=== PATIENT | male | born 1950 | race Hispanic/Latino ===

== ENCOUNTER 2017-04-12 16:14 | Inpatient (IN) | payer MEDICARE, OTHER ==
[2017-04-12 16:28] VITALS: BMI 27.2
[2017-04-12] MEDS ORDERED: Aspirin 325 mg EC Tablets PO STA (17:43)
[2017-04-12 18:03] LABS: BASO # 0.08 K/mm3 (0.0-2.0); BASO % 0.2 % (0.0-3.0); EOS # 0.1 (0.0-0.7); EOS % 0.3 % (1.5-5.0); GRAN # 39.01 (1.4-6.5); GRAN % 89.3 % (50.0-68.0); HEMATOCRIT 32.8 % (42.0-52.0); LYMPH % 4.5 % (22.0-35.0); MEAN CELL VOLUME 92.7 fl (80.0-105.0); MEAN CORPUSCULAR HEMOGLOBIN 31.1 pg (25.0-35.0); MEAN CORPUSCULAR HGB CONC 33.5 g/dl (31.0-37.0); MEAN PLATELET VOLUME 9.4 fl (7.0-11.0); MONO # 2.5 (0.1-0.6); MONO % 5.7 % (1.0-6.0); PLATELET COUNT 139 10^3/uL (120.0-450.0); RED CELL DISTRIBUTION WIDTH 19.8 % (11.5-14.5)
[2017-04-12 18:10] LABS: INR 1.12 (0.93-1.08); WHITE BLOOD COUNT 43.7 10^3/ul (4.5-11.0)
[2017-04-12 18:12] LABS: ALB/GLOB RATIO 1.1 (1.1-1.8); ALKALINE PHOSPHATASE 271 U/L (38-126); ALT/SGPT 42 U/L (7-56); AST/SGOT 30 U/L (17-59); BILIRUBIN,TOTAL 0.4 mg/dL (0.2-1.3); BLOOD UREA NITROGEN 8 mg/dL (7-21); CALCIUM 8.1 mg/dL (8.4-10.5); CARBON DIOXIDE 28 mmol/L (21-33); CHLORIDE 101 mmol/L (98-107); GFR AFRICAN-AMERICAN > 60; GLUCOSE,RANDOM 91 mg/dL (70-110); POTASSIUM 3.3 mmol/L (3.6-5.0); SODIUM 139 mmol/L (132-148); TOTAL PROTEIN 5.9 g/dL (5.8-8.3)
[2017-04-12 18:33] LABS: TROPONIN I < 0.01 ng/mL
[2017-04-12 18:36] LABS: BAND 9 % (0-2); EOSINOPHIL 3 % (0.0-3.0); NEUTROPHIL 82 % (50.0-70.0); PLATELET ESTIMATE NORMAL (NORMAL)
[2017-04-12] MEDS ORDERED: Iodixanol 320 MG/ML 100 ML BOTTLE IV ONE (18:37)
--- NOTE | 2017-04-12 18:57 | US ---
HISTORY: Leg pain and swelling. Evaluate for DVT PHYSICIAN(S): Terrence Dorantes MD. TECHNIQUE: Duplex sonography and color-flow Doppler with graded compression were used to evaluate the deep venous systems of both lower extremities. FINDINGS: The visualized deep venous systems of both lower extremities are sonographically normal and compressible. Normal wave forms and augmentation are seen. There is no sonographic evidence for deep venous thrombosis in the visualized segments of both lower extremities. IMPRESSION: No sonographic evidence for deep venous thrombosis in the visualized segments of both lower extremities.
--- NOTE | 2017-04-12 19:01 | RAD ---
HISTORY: SOB COMPARISON: Chest x-ray performed 06/22/16 TECHNIQUE: Chest, one view. FINDINGS: Right-sided MediPort extends the SVC. LUNGS: Layering small to moderate right pleural effusion. Small left pleural effusion. Bilateral lower lobe atelectasis/ infiltrates. Mild pulmonary venous congestion. No definite pneumothorax. CARDIOVASCULAR: Partially obscured. OSSEOUS STRUCTURES: No acute osseous abnormality identified. VISUALIZED UPPER ABDOMEN: Unremarkable. OTHER FINDINGS: None. IMPRESSION: Layering small to moderate right pleural effusion. Small left pleural effusion. Bilateral lower lobe atelectasis/ infiltrates. Mild pulmonary venous congestion. Right-sided MediPort extends to the SVC.
[2017-04-12] MEDS ORDERED: Piperacillin/Tazobact 3.375 gm 100 ML IVPB STA (19:37)
[2017-04-12] MEDS ORDERED: Vancomycin 1gm in NS 250ml 1 GM/250 ML BAG IVPB STA (19:38)
[2017-04-12 20:16] LABS: VENOUS BLOOD GAS BASE EXCESS 5.8 mmol/L (0.0-2.0); VENOUS BLOOD PH 7.41 (7.32-7.43)
[2017-04-12 20:34] LABS: PH,URINE 6.5 (4.7-8.0); URINE BILIRUBIN NEGATIVE (NEGATIVE); URINE BLOOD LARGE (NEGATIVE); URINE GLUCOSE (UA) NEGATIVE (NEGATIVE); URINE KETONE NEGATIVE (NEGATIVE); URINE LEUKOCYTE ESTERASE TRACE Leu/uL (NEGATIVE); URINE PROTEIN NEGATIVE mg/dL (<30 mg/dL); URINE UROBILINOGEN 0.2 E.U./dL (<1 E.U./dL)
[2017-04-12 20:36] LABS: URINE APPEARANCE SL CLOUDY (CLEAR); URINE COLOR YELLOW (YELLOW)
--- NOTE | 2017-04-12 20:37 | CT ---
EXAM: CT Angiography Chest With Intravenous Contrast EXAM DATE/TIME: 04/12/2017 5:43 PM CLINICAL HISTORY: 66 years old, male; Signs and symptoms; Shortness of breath; Additional info: SOB, h/o clot, h/o pancreatic cancer TECHNIQUE: Axial computed tomographic angiography images of the chest with intravenous contrast using pulmonary embolism protocol. All CT scans at this facility use one or more dose reduction techniques, viz.: automated exposure control; ma/kV adjustment per patient size (including targeted exams where dose is matched to indication; i.e. head); or iterative reconstruction technique. MIP reconstructed images were created and reviewed. Coronal and sagittal reformatted images were created and reviewed. CONTRAST: 100 mL of VISIPAQUE 320 administered intravenously. COMPARISON: CT - CHEST,ABD,PEL W/IV CONT ONLY 06/21/2016 9:55:28 AM FINDINGS: Tubes, lines and devices: There is a Port-A-Cath in the right chest wall. Catheter tip is in the low superior vena cava. Heart, aorta and Pulmonary arteries: There is occlusive thrombus in the superior vena cava inferior to the catheter tip. There is filling of the azygos system with collateral opacification of the inferior vena cava. Heart size is normal. There is trace fluid in pericardial recesses. There are coronary artery calcifications and/or stents. There is no aneurysm or dissection. There is perfusion of the 3 arch vessels.There are vascular calcifications. Main pulmonary artery is normal in caliber. There no central pulmonary emboli. Allowing for streak and motion, there are no peripheral emboli. Lungs and pleural spaces: Trachea and main bronchi are patent. There is a large right pleural effusion. There is a moderately large left pleural effusion. There is right middle and lower lobe atelectasis. There is partial right upper lobe atelectasis. There is less extensive left lower lobe atelectasis. There is minimal compressive left upper lobe atelectasis. Motion limits evaluation of aerated lung. Thyroid: Thyroid is only partially imaged. Bones/joints: There are degenerative changes in the osseus structures. Soft tissues: There is body wall edema. Lymph nodes: There are multiple shotty axillary nodes left greater than right. Upper abdomen: There are no acute abnormalities in the visualized portion of the abdomen. There is a left renal cyst. 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
[2017-04-12 20:39] LABS: URINE RBC TNTC /hpf (0-2)
--- NOTE | 2017-04-12 20:43 | ED PDOC ---
Arrival/HPI - General Chief Complaint: Lower Extremity Problem/Injury Time Seen by Provider: 04/12/17 16:55 Historian: Patient - History of Present Illness Narrative History of Present Illness (Text): 04/12/17 20:43 A 66 year old male, whose past medical history includes pancreatic cancer on chemotherapy, presents to the emergency department complaining of persistent upper and lower extremity edema. Patient reports he was recently seen at [facility] [place] and diagnosed with a clot somewhere on the right side of his upper body, however , he is not entirely sure. Patient states his oncologist increased his Lasix dosage 1 week ago. He was also placed on Lovenox due to clot and history of atrial fibrillation. Patient also complains of dyspnea on exertion for 1 week, but denies any shortness of breath at this time. Patient denies any upper/lower extremity pain, fever, chills, nausea, vomiting, abdominal pain, chest pain, cough, headache, dizziness, neck pain or any other complaints. PMD: Dr. Zelaya Oncologist: Dr. Leavitt Accountant Auditor: Dr. Terrence Yoder Past Medical History - Provider Review Nursing Documentation Reviewed: Yes - Infectious Disease Hx of Infectious Diseases: None - Tetanus Immunization Tetanus Immunization: Unknown - Cardiac Hx Cardiac Disorders: Yes (Cardiac stent, A fib, EF 25%) Hx Atrial Fibrillation: Yes Hx Congestive Heart Failure: Yes Hx Hypertension: Yes - Pulmonary Hx Respiratory Disorders: Yes (LUNG NODULE.SMOKED CIGARETTES-QUIT 1973. <PK. 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 food bezoar, duodenal gstric outlet obstruction, barretts esophagus, gi bleed, constipation, nausea - Genitourinary/Gynecological Hx Genitourinary Disorders: No - Psychiatric Hx Emotional Abuse: No Hx Physical Abuse: No Hx Substance Use: Yes (MARIJUANA. LAST SMOKED LAST YR 2014) - Past Surgical History Past Surgical History: No Previous - Surgical History Hx Coronary Stent: Yes (03/2013) - Anesthesia Hx Anesthesia Reactions: No Hx Malignant Hyperthermia: No - Suicidal Assessment Feels Threatened In Home Enviroment: No Family/Social History - Physician Review Nursing Documentation Reviewed: Yes Family/Social History: No Known Family HX Smoking Status: Former Smoker Hx Alcohol Use: Yes (OCCASIONAL DRINKS) Hx Substance Use: Yes (MARIJUANA. LAST SMOKED LAST 2014) Hx Substance Use Treatment: No Allergies/Home Meds Allergies/Adverse Reactions: Allergies iv tape Allergy (Mild, Uncoded 04/12/17 16:29) RASH Home Medications: Home Meds Medication Instructions Recorded Confirmed Digoxin 0.25 mg PO DAILY 04/12/17 04/12/17 Enoxaparin [Lovenox] 60 mg SQ DAILY 04/12/17 04/12/17 Furosemide [Lasix] 20 mg PO DAILY 04/12/17 04/12/17 Review of Systems - Physician Review All systems were reviewed & negative as marked: Yes - Review of Systems Constitutional: absent: Fevers, Night Sweats Respiratory: SOB (currently asymptomatic). absent: Cough Cardiovascular: Edema (Upper and lower extremity edema). absent: Chest Pain Gastrointestinal: absent: Abdominal Pain, Nausea, Vomiting Musculoskeletal: absent: Neck Pain Neurological: absent: Headache, Dizziness Physical Exam Vital Signs Reviewed: Yes Vital Signs Temp Pulse Resp BP Pulse Ox 04/13/17 00:56 17 98 04/13/17 00:53 98.0 F 88 17 120/99 H 98 04/12/17 20:12 97.7 F 04/12/17 17:58 110/63 04/12/17 16:20 97.4 F L 105 H 18 124/84 97 Temperature: Afebrile Blood Pressure: Normal Pulse: Tachycardic Respiratory Rate: Normal Appearance: Positive for: Well-Appearing, Non-Toxic, Comfortable (laying in bed , speaking full sentences) Pain Distress: None Mental Status: Positive for: Alert and Oriented X 3 Finger Stick Blood Glucose: 122 - Systems Exam Head: Present: Atraumatic, Normocephalic Pupils: Present: PERRL Extroacular Muscles: Present: EOMI Conjunctiva: Present: Normal Mouth: Present: Moist Mucous Membranes Neck: Present: Normal Range of Motion Respiratory/Chest: Present: Clear to Auscultation, Decreased Breath Sounds (in lower lung oliva). No: Respiratory Distress, Accessory Muscle Use Cardiovascular: Present: Normal S1, S2, Irregular Rhythm. No: Murmurs Abdomen: Present: Normal Bowel Sounds. No: Tenderness, Distention, Peritoneal Signs Back: Present: Normal Inspection Upper Extremity: Present: Edema (+2 pitting edema bilaterally), Normal ROM, NORMAL PULSES, Neurovascularly Intact. No: Cyanosis, Tenderness, Temperature Abnormalties Lower Extremity: Present: Edema (2+ pitting edema bilaterally), NORMAL PULSES, Normal ROM, Neurovascularly Intact. No: CALF TENDERNESS, Tenderness Neurological: Present: GCS=15, CN II-XII Intact, Speech Normal Skin: Present: Warm, Dry, Pale. No: Rashes Psychiatric: Present: Alert, Oriented x 3, Normal Insight, Normal Concentration Medical Decision Making ED Course and Treatment: 04/12/17 20:43 Impression: A 66 year old male with upper and lower extremity edema. Patient notes shortness of breath but denies any other complaints. Plan: -- Chest CT -- Chest xray -- Duplez lower extremity ultrasound -- EKG -- Labs -- Blood and Urine culture -- Urinalysis -- Aspirin, Lasix, Potassium chloride, Vancomycin and Zosyn -- Reassess and disposition Progress Notes: EKG : A fib 107 bpm, consistent with prior EKG, only change is V2, as read by ER MD. Labs reviewed : pt's WBC is 43.7 with L shift and noted bands. K is 3.3. BNP 5600 and trop is (-). On further questioning the patient admits to receiving neupagen injections to increase his WBC count. However considering the pt's hx of cancer, symptoms of SOB and CXR findings of possible pneumonia, will treat as such. Patient given KCL PO, zosyn IV and vancomycin IV. Blood cultures and lactic acid ordered. Patient refuses rectal temp. TA chest is still pending. US of UE and LE shows no acute DVT. 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 Dr. Low covering for Dr. Zelaya called, notified of admission. - Lab Interpretations Microbiology Results: Microbiology Results 04/12/17 17:05 Blood Blood Culture - Preliminary NO GROWTH AFTER 24 HOURS 04/12/17 16:50 Blood Blood Culture - Preliminary NO GROWTH AFTER 24 HOURS Lab Results: 04/12/17 16:50 04/12/17 16:50 Lab Results 04/12/17 20:24: Urine Color Yellow, Urine Appearance Sl cloudy, Urine pH 6.5, Ur Specific Flushing <= 1.005, Urine Protein Negative, Urine Glucose (UA) Negative, Urine Ketones Negative, Urine Blood Large H, Urine Nitrate Negative, Urine Bilirubin Negative, Urine Urobilinogen 0.2, Ur Leukocyte Esterase Trace H , Urine RBC Tntc, Urine WBC 1 - 3 04/12/17 20:05: pO2 50, VBG pH 7.41, VBG pCO2 50.0, VBG HCO3 31.7 H, VBG Total CO2 33.2 H, VBG O2 Sat (Calc) 88.1 H, VBG Base Excess 5.8 H, VBG Potassium 3.0 L , Glucose 102, Lactate 1.4, FiO2 21.0, Sodium 139.0, Chloride 103.0, Venous Blood Potassium 3.0 L 04/12/17 16:50: Sodium 139, Potassium 3.3 L, Chloride 101, Carbon Dioxide 28, Anion Gap 13, BUN 8, Creatinine 0.8, Est GFR ( Amer) > 60, Est GFR (Non- Af Amer) > 60, Random Glucose 91, Calcium 8.1 L, Total Bilirubin 0.4, AST 30, ALT 42, Alkaline Phosphatase 271 H, Lactate Dehydrogenase 926 H, Total Creatine Kinase 23 L, Troponin I < 0.01, NT-Pro-B Natriuret Pep 5600 H, Total Protein 5.9 , Albumin 3.1, Globulin 2.8, Albumin/Globulin Ratio 1.1 04/12/17 16:50: PT 12.1 H, INR 1.12 H, APTT 61.0 H 04/12/17 16:50: WBC 43.7 H* D, RBC 3.54, Hgb 11.0 L, Hct 32.8 L, MCV 92.7, MCH 31.1, MCHC 33.5, RDW 19.8 H, Plt Count 139, MPV 9.4, Gran % 89.3 H, Lymph % ( Auto) 4.5 L, Overton % (Auto) 5.7, Eos % (Auto) 0.3 L, Baso % (Auto) 0.2, Gran # 39.01 H, Lymph # 2.0, Overton # 2.5 H, Eos # 0.1, Baso # 0.08, Neutrophils % ( Manual) 82 H, Band Neutrophils % 9 H, Lymphocytes % (Manual) 3 L, Monocytes % ( Manual) 3, Eosinophils % (Manual) 3, Platelet Evaluation Normal 04/12/17 16:41: POC Glucose (mg/dL) 122 H I have reviewed the lab results: Yes - RAD Interpretation Narrative RAD Interpretations (Text): 04/13/17 02:14 CXR: FINDINGS: Right-sided MediPort extends the SVC. LUNGS: Layering small to moderate right pleural effusion. Small left pleural effusion. Bilateral lower lobe atelectasis/ infiltrates. Mild pulmonary venous congestion. No definite pneumothorax. CARDIOVASCULAR: Partially obscured. OSSEOUS STRUCTURES: No acute osseous abnormality identified. VISUALIZED UPPER ABDOMEN: Unremarkable. OTHER FINDINGS: None. IMPRESSION: Layering small to moderate right pleural effusion. Small left pleural effusion. Bilateral lower lobe atelectasis/ infiltrates. Mild pulmonary venous congestion. Right-sided MediPort extends to the SVC. US doppler b/l UE: no DVT in R and L UE, as per US tech report. US doppler b/l LE: FINDINGS: The visualized deep venous systems of both lower extremities are sonographically normal and compressible. Normal wave forms and augmentation are seen. There is no sonographic evidence for deep venous thrombosis in the visualized segments of both lower extremities. IMPRESSION: No sonographic evidence for deep venous thrombosis in the visualized segments of both lower extremities. CTA CHEST PE Study : FINDINGS: Tubes, lines and devices: There is a Port-A-Cath in the right chest wall. Catheter tip is in the low superior vena cava. Heart, aorta and Pulmonary arteries: There is occlusive thrombus in the superior vena cava inferior to the catheter tip. There is filling of the azygos system with collateral opacification of the inferior vena cava. Heart size is normal. There is trace fluid in pericardial recesses. There are coronary artery calcifications and/or stents. There is no aneurysm or dissection. There is perfusion of the 3 arch vessels.There are vascular calcifications. Main pulmonary artery is normal in caliber. There no central pulmonary emboli. Allowing for streak and motion, there are no peripheral emboli. Lungs and pleural spaces: Trachea and main bronchi are patent. There is a large right pleural effusion. There is a moderately large left pleural effusion. There is right middle and lower lobe atelectasis. There is partial right upper lobe atelectasis. There is less extensive left lower lobe atelectasis. There is minimal compressive left upper lobe atelectasis. Motion limits evaluation of aerated lung. Thyroid: Thyroid is only partially imaged. Bones/joints: There are degenerative changes in the osseus structures. Soft tissues: There is body wall edema. Lymph nodes: There are multiple shotty axillary nodes left greater than right. Upper abdomen: There are no acute abnormalities in the visualized portion of the abdomen. There is a left renal cyst. 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 Dictated and Authenticated by: Pao Waldron MD 04/12/2017 8:37 PM Eastern Time ([place] & [place]) Radiology Orders: 04/12/17 17:43 ANGIO CHEST PE PROTOCOL [CT] Stat DUPLEX LOWER EXTRM VEIN BILAT [US] Stat 04/12/17 17:44 CHEST PORTABLE [RAD] Stat 04/12/17 17:48 DUPLEX UPPER EXTRM VEIN BILAT [US] Stat - Medication Orders Current Medication Orders: Albuterol/Ipratropium (Duoneb 3 Mg/0.5 Mg (3 Ml) Ud) 3 ml IH Q2H PRN PRN Reason: Shortness of Breath Aspirin (Aspirin Chewable) 81 mg PO DAILY [facility] Last Admin: 04/13/17 09:29 Dose: 81 mg Calcium Carbonate (Oscal) 500 mg PO DAILY [facility] Last Admin: 04/13/17 09:29 Dose: 500 mg Digoxin (Lanoxin) 0.25 mg PO 1400 [facility] Last Admin: 04/13/17 13:12 Dose: 0.25 mg Doxycycline Hyclate (Doryx) 100 mg PO Q12 CHRISTOPHER PRN Reason: Protocol Last Admin: 04/13/17 21:36 Dose: 100 mg Enoxaparin Sodium (Lovenox) 80 mg SC Q12H CHRISTOPHER PRN Reason: Protocol Last Admin: 04/14/17 00:36 Dose: Not Given Non-Admin Reason: Patient Refused Furosemide (Lasix) 40 mg IVP Q12 CHRISTOPHER Last Admin: 04/13/17 21:36 Dose: 40 mg Meropenem 1g/NS 100mL IVPB (Meropenem 1g/Ns 100ml Ivpb) 1 gm in 100 mls @ 100 mls/hr IVPB Q8 CHRISTOPHER PRN Reason: Protocol Stop: 04/20/17 14:01 Last Admin: 04/14/17 05:38 Dose: 100 mls/hr Insulin Human Lispro (Humalog Med) 0 units SC ACHS CHRISTOPHER PRN Reason: Protocol Last Admin: 04/14/17 07:51 Dose: Not Given Non-Admin Reason: Blood Sugar Parameter Pantoprazole Sodium (Protonix Ec Tab) 40 mg PO 0600,1600 [facility] Last Admin: 04/14/17 05:38 Dose: 40 mg Tamsulosin HCl (Flomax) 0.4 mg PO DAILY [facility] Last Admin: 04/13/17 09:29 Dose: 0.4 mg Discontinued Medications Aspirin (Ecotrin) 325 mg PO STAT STA Stop: 04/12/17 17:44 Last Admin: 04/12/17 17:58 Dose: Not Given Non-Admin Reason: Patient Refused Enoxaparin Sodium (Lovenox) 30 mg SC Q12H CHRISTOPHER PRN Reason: Protocol Last Admin: 04/13/17 05:41 Dose: 30 mg Furosemide (Lasix) 40 mg IVP STAT STA Stop: 04/12/17 17:55 Last Admin: 04/12/17 17:58 Dose: 40 mg Furosemide (Lasix) 40 mg PO DAILY [facility] Last Admin: 04/13/17 09:28 Dose: 40 mg Piperacillin Sod/Tazobactam Sod (Zosyn 3.375 In Ns 100ml) 100 mls @ 200 mls/hr IVPB STAT STA PRN Reason: Protocol Stop: 04/12/17 20:06 Last Admin: 04/12/17 20:11 Dose: 200 mls/hr Vancomycin HCl (Vancomycin 1gm) 1 gm in 250 mls @ 167 mls/hr IVPB STAT STA PRN Reason: Protocol Stop: 04/12/17 21:07 Last Admin: 04/12/17 20:48 Dose: 167 mls/hr Iodixanol (Visipaque 320 Mg/Ml 100 Ml) Confirm Administered Dose 100 ml IV .STK- MED ONE Stop: 04/12/17 18:38 Potassium Chloride (Potassium Chloride Oral Soln) 40 meq PO STAT STA Stop: 04/12/17 21:22 Last Admin: 04/12/17 22:15 Dose: 40 meq Potassium Chloride (K-Dur 20 Meq Er Tab) 20 meq PO ONCE ONE Stop: 04/13/17 07:21 Last Admin: 04/13/17 07:00 Dose: Not Given Non-Admin Reason: Patient Refused - PA / WRAPPER DIPPER / Resident Statement MD/DO has reviewed & agrees with the documentation as recorded. - Scribe Statement The provider has reviewed the documentation as recorded by the Liudmilaibmaryann Marcum Provider Scribe Attestation: All medical record entries made by the Liudmilaibmaryann were at my direction and personally dictated by me. I have reviewed the chart and agree that the record accurately reflects my personal performance of the history, physical exam, medical decision making, and the department course for this patient. I have also personally directed, reviewed, and agree with the discharge instructions and disposition. Disposition/Present on Arrival - Present on Arrival Any Indicators Present on Arrival: No History of DVT/PE: No History of Uncontrolled Diabetes: No Urinary Catheter: No (biliary catheter) History of Decub. Ulcer: No History Surgical Site Infection Following: None - Disposition Have Diagnosis and Disposition been Completed?: Yes Diagnosis: Pancreatic cancer, Leukocytosis, Pneumonia, Pleural effusion Disposition: HOSPITALIZED Disposition Time: 22:00 Patient Plan: Admission Patient Problems: Current Active Problems Problem Status Onset Leukocytosis Acute Pancreatic cancer Acute Pleural effusion Acute Pneumonia Acute Condition: STABLE
[2017-04-12] MEDS ORDERED: Potassium Chloride 20 mEq/15 ml LIQ UD PO STA (21:21)
--- NOTE | 2017-04-13 03:38 | CP.PCM.HP ---
<Doroteo Owens - Last Filed: 04/13/17 07:56> History of Present Illness - History of Present Illness History of Present Illness: Doroteo Owens PGY1 H&P Note cc: sob and extremity swelling Mr. Campuzano is a 66yo M with PMH pancreatic CA (s/p surgery and chemo) , Afib (on Dig), CAD s/p stent, R tinnitus, DM2 (not regular on insulin), nephrolithiasis who presents with sob since last Sunday but didn't come in due to holidays. Pt states that he was going down to check the mail and came back up the stairs to his house and became short of breath. he gets sob occasionally when he walks long distances, but never from just going up and down the stairs. Pt also state sthat he was getting chemo in early March when he noticed his extremities were swollen, so pt was taken to [facility] and worked up and found to have a clot in his UE (was not told where). Pt states that he was placed on Eliquis 5 but then found blood in urine and was brought down to 2.5mg, then switched to another med which he injects into his belly twice a day but couldn' t recall what it's called. Pt states that he sleeps on 1 pillow and doesn't sleep well at night due to his tinnitus and denies waking up at night with sob. He states that his sob is only when he's exerting himself and not at rest. Pt states that he feels much better with the dose of Lasix that he was given in the ED and states that his swelling which was proximal to his knees has now decreased and he feels better, stating "I haven't peed like that in a while." For completeness, pt's last chemo treatment last . Otherwise, pt denies cp, palpitations, sob at rest, changes in vision/hearing, weakness, abdominal pain, constipation or diarrhea, n/v, fevers/chills, cough, or urinary urgency/ dysuria. 10-point ROS reviewed and is otherwise unremarkable. PMH: pancreatic CA (s/p surgery by Dr. Dsouza and chemo), Afib (on Dig), CAD s /p stent, R tinnitus, DM2 (not regular on insulin, states he measures his FS at home and if it's high he takes 1-2u and if low, he has candy), nephrolithiasis PSH: surgery for CA (pt unsure if Lori en y), cardiac stent Meds: as per MAR Allergies: tape on IV SHx: former smoker, ETOH and marijuana user (many years ago). Lives alone Present on Admission - Present on Admission Any Indicators Present on Admission: No History of DVT/PE: No History of Uncontrolled Diabetes: No Review of Systems - Review of Systems All systems: reviewed and no additional remarkable complaints except (as per HPI ) Past Patient History - Infectious Disease Hx of Infectious Diseases: None - Tetanus Immunizations Tetanus Immunization: Unknown - Past Medical History & Family History Past Medical History?: Yes - Past Social History Smoking Status: Former Smoker Alcohol: None Drugs: Denies - CARDIAC Hx Cardiac Disorders: Yes (Cardiac stent, A fib, EF 25%) Hx Atrial Fibrillation: Yes Hx Congestive Heart Failure: Yes (EF 25% ) Hx Hypertension: Yes - PULMONARY Hx Respiratory Disorders: Yes (LUNG NODULE.SMOKED CIGARETTES-QUIT 1973. <PK. SMOKED MARIJUANA.LAST 2014) Hx Pneumonia: Yes - NEUROLOGICAL Hx Neurological Disorder: Yes Hx Dizziness: Yes - HEENT Hx HEENT Problems: No - RENAL Hx Chronic Kidney Disease: Yes Hx Kidney Stones: Yes - ENDOCRINE/METABOLIC Hx Endocrine Disorders: Yes Hx Diabetes Mellitus Type 2: Yes - HEMATOLOGICAL/ONCOLOGICAL Hx Anemia: Yes (04-04-16 GI BLEED) Other/Comment: prbc and ffp blood transfusions - MUSCULOSKELETAL/RHEUMATOLOGICAL Hx Falls: No - GASTROINTESTINAL Hx Gastrointestinal Disorders: Yes Hx Bowel Surgery: Yes Other/Comment: esophageal ulcers, esophageal polyp. food bezoar, duodenal gstric outlet obstruction, barretts esophagus, gi bleed, constipation, nausea - GENITOURINARY/GYNECOLOGICAL Hx Genitourinary Disorders: No - PSYCHIATRIC Hx Emotional Abuse: No Hx Physical Abuse: No Hx Substance Use: Yes (MARIJUANA. LAST SMOKED LAST 2014) - SURGICAL HISTORY Hx Surgeries: Yes Hx Cardiac Catheterization: Yes Hx Coronary Stent: Yes (03/2013) - ANESTHESIA Hx Anesthesia: Yes Hx Anesthesia Reactions: No Hx Malignant Hyperthermia: No Meds Allergies/Adverse Reactions: Allergies Allergy/AdvReac Type Severity Reaction Status Date / Time iv tape Allergy Mild RASH Uncoded 04/12/17 16:29 Physical Exam - Constitutional Appears: Well, Non-toxic, No Acute Distress - Head Exam Head Exam: ATRAUMATIC, NORMAL INSPECTION, NORMOCEPHALIC - Eye Exam Eye Exam: EOMI, Normal appearance, PERRL Pupil Exam: NORMAL ACCOMODATION - ENT Exam ENT Exam: Mucous Membranes Moist, Normal Exam - Neck Exam Neck exam: Positive for: Full Rom, Normal Inspection. Negative for: Lymphadenopathy - Respiratory Exam Respiratory Exam: Rales, NORMAL BREATHING PATTERN. absent: Accessory Muscle Use , Wheezes, Respiratory Distress - Cardiovascular Exam Cardiovascular Exam: Irregular Rhythm. absent: Gallop, Rubs - GI/Abdominal Exam GI & Abdominal Exam: Normal Bowel Sounds, Soft. absent: Distended, Guarding, Organomegaly, Tenderness Additional comments: old scar from midline incision below xiphoid level toward umbilicus - Extremities Exam Extremities exam: Positive for: pedal edema (2+). Negative for: calf tenderness , tenderness Additional comments: UE and LE 2+ edema - Back Exam Back exam: NORMAL INSPECTION. absent: CVA tenderness (L), CVA tenderness (R) - Neurological Exam Neurological exam: Alert, Oriented x3 - Psychiatric Exam Psychiatric exam: Normal Affect, Normal Mood - Skin Skin Exam: Normal Color, Warm - Additional Findings Additional findings: R chest port in place Results - Vital Signs Recent Vital Signs: Last Vital Signs Temp 98.0 F 04/13/17 00:53 Pulse 88 04/13/17 00:53 Resp 17 04/13/17 00:56 BP 120/99 H 04/13/17 00:53 Pulse Ox 98 04/13/17 00:56 - Labs Result Diagrams: 04/12/17 16:50 04/12/17 16:50 Assessment & Plan - Assessment and Plan (Free Text) Assessment: 66yo M PMH pancreatic CA (s/p surgery and chemo), Afib (on Dig), CAD s/p stent, R tinnitus, DM2 (not regular on insulin), nephrolithiasis who presents with sob and 2+ edema in extremities x4 since last Sunday Plan: 1. SOB and peripheral edema likely 2/2 CHF exacerbation vs lymphedema vs DVT vs COPD exacerbation (unlikely due to proper oxygenation and absence of wheezing) - Chest XR shows R pleural effusion, smaller L pleural effusion, b/l lower lobe atelectasis, mild pulm venous congestion - Chest CT shows occlusion of SVC w/ collateral filling of IVC; no aneurysms, dissection or PE; pleural effusion and atelectasis as noted above - Echo in 2016 showed 25% EF - transfer pt to remote tele for monitoring - pro-BNP elevated - troponin I negative x1 - EKG in ED showed AFib w/ RVR and inferior infarct unchanged from 06/2016 EKG. - given Lasix 40 IVP x1 in ED w/ improvement - Lasix 40mg PO CHRISTOPHER daily, but will likely require higher dose (~80mg PO due to IV > PO conversion). will try 40mg PO which is higher than home dose 20mg PO then increase accordingly. - Echo AM - LE Duplex showed no signs of DVT - UE Duplex pending read, f/u results - Duonebs PRN in case of resp distress - Keep head of bed @ 45deg - fluid restriction 800cc - strict I/O - daily weight checks 2. Leukocytosis likely 2/2 infectious cause vs new leukemia - pt currently afebrile - blood/urine cx, f/u results - CXR showed no infectious/inflammatory changes - given Zosyn and Vancomycin x1 in ED - will not start abx tx currently and monitor 3. ?Hx of clot in UE, pt has hx of CA and recent decreased mobility due to swelling so hypercoagulable - f/u UE duplex read - Lovenox 30mg q12 - contact [facility] for results stating location of clot - monitor vitals 4. Hypokalemia - repleted in ED - f/u BMP AM 5. hypocalcemia - Oscal daily - f/u BMP 6. Hx Pancreatic CA (on chemo, NO radiation or surgery) - no changes for now - pt will f/u Dr. Rey outpt 7. Hx GERD and gastric obstruction w/ gastric erosions and a prior GI bleed s/p emergent gastrojejunostomy and enteroenterostomy in 03/2016 - PTX for GI ppx - monitor H/H 8. Hx Afib - cont Digoxin 9. Hx DM? - pt currently only mildly hyperglycemic - last A1C 5.9 from 2016 - repeat A1C level - not started on anti-hyperglycemic agents as of now 10. Hx CAD s/p stent - ASA 81mg daily 11. BPH - flomax home dose HHD no fluids PTX/Lovenox Doroteo Owens - Date & Time Date: 04/13/17 Time: 02:00 <Scar Low - Last Filed: 05/18/17 17:22> Results - Vital Signs Recent Vital Signs: Last Vital Signs Temp 98.1 F 04/22/17 17:17 Pulse 89 04/22/17 17:17 Resp 20 04/22/17 17:17 BP 108/74 04/22/17 17:17 Pulse Ox 97 04/22/17 17:17 - Labs Result Diagrams: 04/22/17 05:45 04/22/17 05:45 Attending/Attestation - Attestation I have personally seen and examined this patient.: Yes I have fully participated in the care of the patient.: Yes I have reviewed all pertinent clinical information: Yes Notes (Text): 05/18/17 17:22 Medical record note made by the resident after discussion with my direction and input after the patient was personally seen and examined by me. I have reviewed the chart and agree that the record accurately reflects by personal performance of the history, physical exam, data review, and medical decision-making, in the course for the patient. I have also personally directed the plan of care.
[2017-04-13] MEDS ORDERED: Enoxaparin 30 mg Syringe SC SCH (04:00)
[2017-04-13] MEDS ORDERED: Albuterol-Ipratrop 3 mg / 0.5 (3 ml) UD IH PRN (04:42)
[2017-04-13] MEDS: Pantoprazole 40 mg EC Tab PO SCH ×2 (05:39→16:38)
[2017-04-13] MEDS ORDERED: Potassium Chloride 20 mEq ER Tab PO ONE (07:20)
[2017-04-13 08:45] LABS: HEMATOCRIT 30.4 % (42.0-52.0); MEAN CELL VOLUME 92.4 fl (80.0-105.0); MEAN CORPUSCULAR HGB CONC 33.6 g/dl (31.0-37.0); RED CELL DISTRIBUTION WIDTH 20.2 % (11.5-14.5)
[2017-04-13 08:47] LABS: WHITE BLOOD COUNT 49.7 10^3/ul (4.5-11.0)
[2017-04-13 08:55] LABS: ALKALINE PHOSPHATASE 191 U/L (38-126); ALT/SGPT 48 U/L (7-56); AST/SGOT 26 U/L (17-59); BILIRUBIN,TOTAL 0.3 mg/dL (0.2-1.3); BLOOD UREA NITROGEN 8 mg/dL (7-21); CARBON DIOXIDE 32 mmol/L (21-33); CHLORIDE 103 mmol/L (98-107); GFR AFRICAN-AMERICAN > 60; GLUCOSE,RANDOM 95 mg/dL (70-110); POTASSIUM 3.3 mmol/L (3.6-5.0); SODIUM 140 mmol/L (132-148); TOTAL PROTEIN 5.4 g/dL (5.8-8.3)
[2017-04-13 08:57] LABS: BASO # 0.08 K/mm3 (0.0-2.0); BASO % 0.2 % (0.0-3.0); EOS # 0.3 (0.0-0.7); EOS % 0.7 % (1.5-5.0); GRAN # 43.25 (1.4-6.5); GRAN % 88.1 % (50.0-68.0); LYMPH # 2.4 (1.2-3.4); LYMPH % 4.8 % (22.0-35.0); MONO % 6.2 % (1.0-6.0)
[2017-04-13] MEDS ORDERED: Enoxaparin 60 mg Syringe SC SCH (10:00)
--- NOTE | 2017-04-13 12:11 | US ---
HISTORY: Arm pain and swelling. Evaluate for deep venous thrombosis. PHYSICIAN(S): Terrence Dorantes MD. FINDINGS: The exam is somewhat limited by edema The visualized internal jugular veins are sonographically normal and compressible. No evidence of obstruction or thrombus this is seen. The visualized segments of the subclavian veins are patent with normal waveforms. No sonographic evidence of obstruction or thrombosis is seen. The visualized deep venous systems of both upper extremities proximally are sonographically normal and compressible. IMPRESSION: 1. No sonographic evidence for deep venous thrombosis in the visualized segments of both upper strategies.
[2017-04-13] MEDS: Digoxin 250 mcg (0.25 mg) Tab PO SCH (13:12)
[2017-04-13] MEDS: Meropenem 1g/NS 100mL IVPB 1 GM/100 ML PIGGYBACK IVPB SCH ×2 (13:12→21:39)
[2017-04-13] MEDS: Enoxaparin 80 mg Syringe SC SCH (13:13)
[2017-04-13 14:51] LABS: MAGNESIUM 1.7 mg/dL (1.7-2.2)
[2017-04-13] MEDS: Insulin Lispro (humaLOG) MEDIUM Coverage SC SCH ×2 (16:38→21:41)
--- NOTE | 2017-04-13 19:30 | CP.PCM.CON ---
History of Present Illness - History of Present Illness History of Present Illness: 66 year old male with PMH of pancreatic adenocarcinoma, history of Left hand IV site superficial thrombophlebitis S/P treatment with Zyvox, Gilbert's esophagitis S/P exploratory laparoscopy and gastrojejunostomy, CAD, atrial fibrillation, DM, chronic CHF, HTN, history of nephrolithiasis came in to [facility] because of increasing shortness of breath over a week as well as dyspnea on exertion. He just received chemotherapy and was given Neulasta as well last week. He denies fever or chills, no nausea or vomiting, no chest pain, no cough, no abdominal pain, no diarrhea, no dysuria, no rhinorrhea, no headache or dizziness, no sore throat. CT chest showed bilateral pleural effusions. Infectious Diseases consult is requested to further evaluate and manage. Review of Systems - Review of Systems All systems: reviewed and no additional remarkable complaints except (as per HPI ) Past Patient History - Infectious Disease Hx of Infectious Diseases: None - Tetanus Immunizations Tetanus Immunization: Unknown - Past Medical History & Family History Past Medical History?: Yes - Past Social History Smoking Status: Former Smoker Alcohol: None Drugs: Denies - CARDIAC Hx Cardiac Disorders: Yes (Cardiac stent, A fib, EF 25%) Hx Atrial Fibrillation: Yes Hx Congestive Heart Failure: Yes (EF 25% ) Hx Hypertension: Yes - PULMONARY Hx Respiratory Disorders: Yes (LUNG NODULE.SMOKED CIGARETTES-QUIT 1973. <PK. SMOKED MARIJUANA.LAST 2014) Hx Pneumonia: Yes - NEUROLOGICAL Hx Neurological Disorder: Yes Hx Dizziness: Yes - HEENT Hx HEENT Problems: No - RENAL Hx Chronic Kidney Disease: Yes Hx Kidney Stones: Yes - ENDOCRINE/METABOLIC Hx Endocrine Disorders: Yes Hx Diabetes Mellitus Type 2: Yes - HEMATOLOGICAL/ONCOLOGICAL Hx Anemia: Yes (830-16 GI BLEED) Other/Comment: prbc and ffp blood transfusions - INTEGUMENTARY Other/Comment: multiple dry skin areas to right arm, surgical incision to mid abd healing potato chip cooker machine - MUSCULOSKELETAL/RHEUMATOLOGICAL Hx Falls: No - GASTROINTESTINAL Hx Gastrointestinal Disorders: Yes Hx Bowel Surgery: Yes Other/Comment: esophageal ulcers, esophageal polyp. food bezoar, duodenal gstric outlet obstruction, barretts esophagus, gi bleed, constipation, nausea - GENITOURINARY/GYNECOLOGICAL Hx Genitourinary Disorders: No - PSYCHIATRIC Hx Emotional Abuse: No Hx Physical Abuse: No Hx Substance Use: Yes (MARIJUANA. LAST SMOKED LAST YR 2014) - SURGICAL HISTORY Hx Surgeries: Yes Hx Cardiac Catheterization: Yes Hx Coronary Stent: Yes (03/2013) - ANESTHESIA Hx Anesthesia: Yes Hx Anesthesia Reactions: No Hx Malignant Hyperthermia: No Meds Allergies/Adverse Reactions: Allergies Allergy/AdvReac Type Severity Reaction Status Date / Time iv tape Allergy Mild RASH Uncoded 04/12/17 16:29 - Medications Medications: Current Medications Albuterol/Ipratropium (Duoneb 3 Mg/0.5 Mg (3 Ml) Ud) 3 ml IH Q2H PRN PRN Reason: Shortness of Breath Aspirin (Aspirin Chewable) 81 mg PO DAILY [facility] Last Admin: 04/13/17 09:29 Dose: 81 mg Calcium Carbonate (Oscal) 500 mg PO DAILY [facility] Last Admin: 04/13/17 09:29 Dose: 500 mg Digoxin (Lanoxin) 0.25 mg PO 1400 [facility] Enoxaparin Sodium (Lovenox) 30 mg SC Q12H CHRISTOPHER PRN Reason: Protocol Last Admin: 04/13/17 05:41 Dose: 30 mg Furosemide (Lasix) 40 mg PO DAILY [facility] Last Admin: 04/13/17 09:28 Dose: 40 mg Pantoprazole Sodium (Protonix Ec Tab) 40 mg PO 0600,1600 [facility] Last Admin: 04/13/17 05:39 Dose: 40 mg Tamsulosin HCl (Flomax) 0.4 mg PO DAILY [facility] Last Admin: 04/13/17 09:29 Dose: 0.4 mg Physical Exam - Constitutional Appears: Non-toxic, No Acute Distress - Head Exam Head Exam: NORMAL INSPECTION - ENT Exam ENT Exam: Mucous Membranes Moist - Neck Exam Neck exam: Negative for: Lymphadenopathy, Meningismus - Respiratory Exam Respiratory Exam: Decreased Breath Sounds Additional comments: right anterior chest wall port site clean and intact - Cardiovascular Exam Cardiovascular Exam: +S1, +S2 - GI/Abdominal Exam GI & Abdominal Exam: Soft. absent: Tenderness Results - Vital Signs Recent Vital Signs: Last Vital Signs Temp 98 F 04/13/17 02:01 Pulse 93 H 04/13/17 06:00 Resp 20 04/13/17 02:01 BP 115/65 04/13/17 09:28 Pulse Ox 98 04/13/17 00:56 - Labs Result Diagrams: 04/13/17 05:00 04/13/17 05:00 Labs: Laboratory Results - last 24 hr 04/13/17 04/13/17 05:00 05:00 WBC 49.7 H* RBC 3.29 L Hgb 10.2 L Hct 30.4 L MCV 92.4 MCH 31.0 MCHC 33.6 RDW 20.2 H Plt Count 133 MPV 9.0 Gran % 88.1 H Lymph % (Auto) 4.8 L [place] % (Auto) 6.2 H Eos % (Auto) 0.7 L Baso % (Auto) 0.2 Gran # 43.25 H Lymph # 2.4 [place] # 3.0 H Eos # 0.3 Baso # 0.08 Sodium 140 Potassium 3.3 L Chloride 103 Carbon Dioxide 32 Anion Gap 8 L BUN 8 Creatinine 0.8 Est GFR ( Amer) > 60 Est GFR (Non-Af Amer) > 60 Random Glucose 95 Calcium 8.0 L Total Bilirubin 0.3 AST 26 ALT 48 Alkaline Phosphatase 191 H D Total Protein 5.4 L Albumin 2.8 L Globulin 2.7 Albumin/Globulin Ratio 1.0 L Assessment & Plan - Assessment and Plan (Free Text) Plan: assessment marked leukocytosis with systemic inflammatory response syndrome, probably due to Neulasta on top of bilateral pleural effusions probably due to cancer, currently no evidence of sepsis identified inferior vena cava thrombus history of obstructive jaundice with sepsis and leukocytosis and probable hospital-acquired pneumonia pancreatic adenocarcinoma on chemotherapy history of Left hand IV site superficial thrombophlebitis S/P treatment with Zyvox Gilbert's esophagitis S/P exploratory laparoscopy and gastrojejunostomy CAD atrial fibrillation DM chronic CHF HTN history of nephrolithiasis Plan patient has been given a dose of IV Vancomycin and Zosyn - will keep off antibiotics for now and follow up blood, urine cx, PCT will monitor clinically
--- NOTE | 2017-04-13 19:55 | CARD ---
APPROVED REPORT EXAM: Two-dimensional and M-mode echocardiogram with Doppler and color Doppler. INDICATION Dyspnea 2D DIMENSIONS Left Atrium (2D)5.3 (1.6-4.0cm)IVSd1.0 (0.7-1.1cm) LVDd4.7 (3.9-5.9cm)PWd1.2 (0.7-1.1cm) LVDs4.2 (2.5-4.0cm)FS (%) 11.5 % LVEF (%)25.0 (>50%) M-Mode DIMENSIONS Aortic Root3.30 (2.2-3.7cm)Aortic Cusp Exc.1.30 (1.5-2.0cm) Aortic Valve AoV Peak Xldqscks093.0cm/Caleb Peak GR.9mmHgLVOT Peak Nsmjatup06.1cm/s LVOT VTI12.50cm Mitral Valve E/A ratio0.0 TDI E/Lateral E'0.0E/Medial E'0.0 Pulmonary Valve PV Peak Wovhthxu22.6cm/sPV Peak Grad.1mmHg Tricuspid Valve TR Peak [id number] [id number] Peak Gr.36mmHg [id number] LEFT VENTRICLE The left ventricle is normal size. There is normal left ventricular wall thickness. The systolic function is severely impaired. There is global hypokinesis of the left ventricle. RIGHT VENTRICLE The right ventricle is normal size. There is normal right ventricular wall thickness. The right ventricular systolic function is normal. ATRIA The left atrium is severely dilated. The right atrium is mildly dilated. AORTIC VALVE The aortic valve is mildly sclerotic. No aortic regurgitation is present. There is no aortic valvular stenosis. MITRAL VALVE The mitral valve is mildly thickened. Mitral regurgitation is severe. There is no mitral valve stenosis. TRICUSPID VALVE There is trace tricuspid regurgitation. There is mild to moderate pulmonary hypertension. GREAT VESSELS The aortic root is normal in size. The IVC collapses <50% with inspiration. PERICARDIAL EFFUSION There is no pericardial effusion. <Conclusion> The left ventricle is normal size. There is normal left ventricular wall thickness. The systolic function is severely impaired. There is global hypokinesis of the left ventricle. Mitral regurgitation is severe. There is mild to moderate pulmonary hypertension.
--- NOTE | 2017-04-13 21:03 | CARD ---
APPROVED REPORT EKG Measurement Heart [id number] <Conclusion> Atrial fibrillation with rapid ventricular response Left axis deviation Low voltage QRS Inferior infarct, age undetermined Abnormal ECG
[2017-04-14] MEDS: Enoxaparin 80 mg Syringe SC SCH ×2 (00:36→21:14)
[2017-04-14] MEDS: Meropenem 1g/NS 100mL IVPB 1 GM/100 ML PIGGYBACK IVPB SCH ×3 (05:38→21:13)
[2017-04-14] MEDS: Pantoprazole 40 mg EC Tab PO SCH ×2 (05:38→17:34)
[2017-04-14] MEDS: Insulin Lispro (humaLOG) MEDIUM Coverage SC SCH ×4 (07:51→22:56)
[2017-04-14 10:38] LABS: HEMATOCRIT 34.2 % (42.0-52.0); MEAN CELL VOLUME 93.7 fl (80.0-105.0); MEAN CORPUSCULAR HEMOGLOBIN 31.2 pg (25.0-35.0); MEAN CORPUSCULAR HGB CONC 33.3 g/dl (31.0-37.0)
[2017-04-14 10:40] LABS: WHITE BLOOD COUNT 49.5 10^3/ul (4.5-11.0)
[2017-04-14 10:51] LABS: ALB/GLOB RATIO 1.1 (1.1-1.8); ALKALINE PHOSPHATASE 219 U/L (38-126); ALT/SGPT 44 U/L (7-56); AST/SGOT 28 U/L (17-59); BILIRUBIN,TOTAL 0.3 mg/dL (0.2-1.3); BLOOD UREA NITROGEN 8 mg/dL (7-21); CALCIUM 8.1 mg/dL (8.4-10.5); CARBON DIOXIDE 31 mmol/L (21-33); CHLORIDE 99 mmol/L (98-107); GFR AFRICAN-AMERICAN > 60; GLUCOSE,RANDOM 170 mg/dL (70-110); POTASSIUM 3.4 mmol/L (3.6-5.0); SODIUM 139 mmol/L (132-148)
--- NOTE | 2017-04-14 11:33 | CP.PCM.PN ---
<Halima Garcia - Last Filed: 04/14/17 11:51> Subjective - Date & Time of Evaluation Date of Evaluation: 04/14/17 Time of Evaluation: 07:45 - Subjective Subjective: Progress note for Dr Zelaya and Devante johnson. Patient with no overnight acute events on tele. Patient c/o of lack of salt in his food, otherwise, really has no medical complaints. Patient reported the sob is only when he ambulates, denies chest pain, denies n/v/d. Patient with pitting 3+ edema on upper and lower extremities, but reported it has improved compared to when he first came in. Denies fever or chills. Objective - Vital Signs/Intake and Output Vital Signs (last 24 hours): Temp Pulse Resp BP Pulse Ox 97.8 F 103 H 20 123/73 98 04/14/17 09:16 04/14/17 10:00 04/14/17 09:16 04/14/17 09:31 04/14/17 09:16 Intake and Output: 04/14/17 04/14/17 06:59 18:59 Intake Total 100 Balance 100 - Medications Medications: Current Medications Albuterol/Ipratropium (Duoneb 3 Mg/0.5 Mg (3 Ml) Ud) 3 ml IH Q2H PRN PRN Reason: Shortness of Breath Aspirin (Aspirin Chewable) 81 mg PO DAILY [facility] Last Admin: 04/14/17 09:40 Dose: Not Given Calcium Carbonate (Oscal) 500 mg PO DAILY [facility] Last Admin: 04/14/17 09:31 Dose: 500 mg Digoxin (Lanoxin) 0.25 mg PO 1400 [facility] Last Admin: 04/13/17 13:12 Dose: 0.25 mg Doxycycline Hyclate (Doryx) 100 mg PO Q12 [facility] PRN Reason: Protocol Last Admin: 04/14/17 09:31 Dose: 100 mg Enoxaparin Sodium (Lovenox) 40 mg SC DAILY [facility] PRN Reason: Protocol Furosemide (Lasix) 40 mg IVP Q12 [facility] Last Admin: 04/14/17 09:31 Dose: 40 mg Meropenem 1g/NS 100mL IVPB (Meropenem 1g/Ns 100ml Ivpb) 1 gm in 100 mls @ 100 mls/hr IVPB Q8 [facility] PRN Reason: Protocol Stop: 04/20/17 14:01 Last Admin: 04/14/17 05:38 Dose: 100 mls/hr Insulin Human Lispro (Humalog Med) 0 units SC ACHS [facility] PRN Reason: Protocol Last Admin: 04/14/17 07:51 Dose: Not Given Pantoprazole Sodium (Protonix Ec Tab) 40 mg PO 0600,1600 [facility] Last Admin: 04/14/17 05:38 Dose: 40 mg Tamsulosin HCl (Flomax) 0.4 mg PO DAILY [facility] Last Admin: 04/14/17 09:31 Dose: 0.4 mg - Labs Labs: 04/14/17 10:30 04/14/17 10:30 PT 12.1 Seconds (9.9-11.8) H 04/12/17 16:50 INR 1.12 (0.93-1.08) H 04/12/17 16:50 APTT 61.0 Seconds (23.7-30.8) H 04/12/17 16:50 - Constitutional Appears: No Acute Distress, Cachectic, Chronically Ill - Head Exam Head Exam: ATRAUMATIC, NORMAL INSPECTION, NORMOCEPHALIC - Eye Exam Eye Exam: EOMI, Normal appearance, PERRL. absent: Scleral icterus Pupil Exam: NORMAL ACCOMODATION - ENT Exam ENT Exam: Mucous Membranes Dry - Neck Exam Neck Exam: Full ROM, Normal Inspection - Respiratory Exam Respiratory Exam: Clear to Ausculation Bilateral, NORMAL BREATHING PATTERN. absent: Rales, Rhonchi, Wheezes, Respiratory Distress, Stridor - Cardiovascular Exam Cardiovascular Exam: Irregular Rhythm, +S1, +S2. absent: Bradycardia, Tachycardia, Gallop, JVD, Rubs - GI/Abdominal Exam GI & Abdominal Exam: Soft, Normal Bowel Sounds. absent: Distended, Firm, Guarding, Rigid, Tenderness - Extremities Exam Extremities Exam: Pedal Edema (b/l upper and lower extremitiesd +3) - Back Exam Back Exam: NORMAL INSPECTION - Neurological Exam Neurological Exam: Alert, Awake, Oriented x3 - Psychiatric Exam Psychiatric exam: Normal Affect, Normal Mood - Skin Skin Exam: Dry, Intact, Normal Color, Warm Assessment and Plan - Assessment and Plan (Free Text) Assessment: Patient is a 66 y/o with PMHx of pancreatic CA s/p surgery and completed chemo last week, Neutropenia on neupogen ( last shot was last week), Afib ( not on anticoag), CAD s/p stents, Systolic with LVEF of 25%, NIDDM2, h/o nephrolithiasis whom presented with dyspnea on exertion and was found to have pleural effusion on CT. Plan: 1) Dyspnea on exertion likely 2nd to decompensated CHF - Less likely pneumonia, procal pending - CT chest revealed large right pleural effusion and multiple atelectasis. - IR consulted for pleural effusion- rec no intervention - Pro bnp chronically elevated, with normal trop x1. - Will continue with lasix 40 mg ivp bid. - Duoneb prn for SOB. - Pending cardiology eval. 2) SIRS- - Tachycardia resolved, leukocysostis likely 2nd to recent neupogen injection - Afebrile - procal pending, bcx so far with no growth - ID following, started on merrem, and doxy, pending. 3) RVR Afib- resolved - Patient has [id number] score of 4, habled score of 2, but not on anticoagulation due to prior history of gi bleed while on anticoags - Cardiology consulted for input - Will continue with digoxin. 4) Occlusion of SVC with collateral filling. - IR consulted - no intervention? 5) DM- Will continue ISS, fingerstcik achs, and carb controlled diet. 6) Hypokalemia- likely 2nd to diuretics - will replete and continue to monitor. 7) Bilateral upper and lower extremities edema likely 2nd to decompensated chf - U/S of the bilateral upper and lower extremities with no DVT - No signs of cyanosis, radial and dorsalis pedis pulses +2 - will continue aggressive diuresis as BP tolerates. - Daily weight and I&Os. 8) PBH- Will continue flomax 9) DVT prophyalxis- lovenox, Gi prophylaxis is protonix. Patient seen, examined and case discussed with Dr Low. <Scar Low - Last Filed: 05/18/17 16:51> Objective - Vital Signs/Intake and Output Vital Signs (last 24 hours): Temp Pulse Resp BP Pulse Ox 98.1 F 89 20 108/74 97 04/22/17 17:17 04/22/17 17:17 04/22/17 17:17 04/22/17 17:17 04/22/17 17:17 - Labs Labs: 04/22/17 05:45 04/22/17 05:45 PT 11.7 Seconds (9.9-11.8) 04/15/17 06:40 INR 1.08 (0.93-1.08) 04/15/17 06:40 APTT 32.4 Seconds (23.7-30.8) H 04/14/17 12:42 Attending/Attestation - Attestation I have personally seen and examined this patient.: Yes I have fully participated in the care of the patient.: Yes I have reviewed all pertinent clinical information, including history, physical exam and plan: Yes Notes (Text): 05/18/17 16:51 Medical record note made by the resident after discussion with my direction and input after the patient was personally seen and examined by me. I have reviewed the chart and agree that the record accurately reflects by personal performance of the history, physical exam, data review, and medical decision-making, in the course for the patient. I have also personally directed the plan of care.
[2017-04-14] MEDS: Potassium Chloride 20 mEq ER Tab PO ONE ×2 (12:27→12:32)
[2017-04-14 12:55] LABS: INR 1.12 (0.93-1.08); PARTIAL THROMBOPLASTIN TIME 32.4 Seconds (23.7-30.8)
[2017-04-14] MEDS: Digoxin 250 mcg (0.25 mg) Tab PO SCH (13:19)
--- NOTE | 2017-04-14 16:33 | CP.PCM.CON ---
History of Present Illness - History of Present Illness History of Present Illness: Oncology Consult Referred for h/o pancreatic cancer HPI-Mr Campuzano is 66 y/o M with h/o metastatic pancreatic cancer, CAD, A fib, CHF, DM, nephrolithiasis who was admitted with SOB with exertion and worsening swelling (generalized). He was recently diagnosed with RUE DVT. Was initially put on Eliquis but later switched to Lovenox when he developed transient hematuria on Eliquis. He was diagnosed with metastatic pancreatic cancer around Jul 2016 and has been on treatment with Gemcitabine and Abraxane. Last chemotherapy was on 04/05/17 with neulasta on 04/06. CT Chest during this admission showed b/l pleural effusions, SVC thrombus with collateral formation. US doppler was negative for DVT. He was started on diuresis and continued on Lovenox. Denies bleeding. His breathing is little better now. Denies chest pain. Denies fever, chills, abdominal pain or altered bowel movements. PMH: pancreatic CA (s/p surgery by Dr. Dsouza and chemo), Afib (on Dig), CAD s /p stent, R tinnitus, DM2 , nephrolithiasis Meds: as per MAR Allergies: tape on IV SHx: former smoker, ETOH and marijuana user (many years ago). Lives alone Review of Systems - Review of Systems All systems: reviewed and no additional remarkable complaints except (as in HPI) Past Patient History - Infectious Disease Hx of Infectious Diseases: None - Tetanus Immunizations Tetanus Immunization: Unknown - Past Medical History & Family History Past Medical History?: Yes - Past Social History Smoking Status: Former Smoker - CARDIAC Hx Cardiac Disorders: Yes (Cardiac stent, A fib, EF 25%) Hx Atrial Fibrillation: Yes Hx Congestive Heart Failure: Yes Hx Hypertension: Yes - PULMONARY Hx Respiratory Disorders: Yes (LUNG NODULE.SMOKED CIGARETTES-QUIT 1973. <PK. SMOKED MARIJUANA.LAST 2014) Hx Pneumonia: Yes - NEUROLOGICAL Hx Neurological Disorder: Yes Hx Dizziness: Yes - HEENT Hx HEENT Problems: No - RENAL Hx Chronic Kidney Disease: Yes Hx Kidney Stones: Yes - ENDOCRINE/METABOLIC Hx Diabetes Mellitus Type 1: Yes - HEMATOLOGICAL/ONCOLOGICAL Hx Anemia: Yes (8-30-16 GI BLEED) Other/Comment: prbc and ffp blood transfusions - INTEGUMENTARY Other/Comment: multiple dry skin areas to right arm, surgical incision to mid abd healing kristy - MUSCULOSKELETAL/RHEUMATOLOGICAL Hx Falls: No - GASTROINTESTINAL Other/Comment: esophageal ulcers, esophageal polyp. food bezoar, duodenal gstric outlet obstruction, barretts esophagus, gi bleed, constipation, nausea - GENITOURINARY/GYNECOLOGICAL Hx Genitourinary Disorders: No - PSYCHIATRIC Hx Emotional Abuse: No Hx Physical Abuse: No Hx Substance Use: Yes (MARIJUANA. LAST SMOKED LAST YR 2014) - SURGICAL HISTORY Hx Coronary Stent: Yes (03/2013) - ANESTHESIA Hx Anesthesia Reactions: No Hx Malignant Hyperthermia: No Meds Allergies/Adverse Reactions: Allergies Allergy/AdvReac Type Severity Reaction Status Date / Time iv tape Allergy Mild RASH Uncoded 04/12/17 16:29 - Medications Medications: Current Medications Albuterol/Ipratropium (Duoneb 3 Mg/0.5 Mg (3 Ml) Ud) 3 ml IH Q2H PRN PRN Reason: Shortness of Breath Aspirin (Aspirin Chewable) 81 mg PO DAILY [facility] Last Admin: 04/14/17 09:40 Dose: Not Given Calcium Carbonate (Oscal) 500 mg PO DAILY [facility] Last Admin: 04/14/17 09:31 Dose: 500 mg Digoxin (Lanoxin) 0.25 mg PO 1400 [facility] Last Admin: 04/14/17 13:19 Dose: 0.25 mg Doxycycline Hyclate (Doryx) 100 mg PO Q12 [facility] PRN Reason: Protocol Last Admin: 04/14/17 09:31 Dose: 100 mg Enoxaparin Sodium (Lovenox) 80 mg SC Q12 [facility] PRN Reason: Protocol Furosemide (Lasix) 40 mg IVP Q12 [facility] Last Admin: 04/14/17 09:31 Dose: 40 mg Meropenem 1g/NS 100mL IVPB (Meropenem 1g/Ns 100ml Ivpb) 1 gm in 100 mls @ 100 mls/hr IVPB Q8 [facility] PRN Reason: Protocol Stop: 04/20/17 14:01 Last Admin: 04/14/17 13:18 Dose: 100 mls/hr Insulin Human Lispro (Humalog Med) 0 units SC ACHS [facility] PRN Reason: Protocol Last Admin: 04/14/17 12:27 Dose: 1 units Pantoprazole Sodium (Protonix Ec Tab) 40 mg PO 0600,1600 [facility] Last Admin: 04/14/17 05:38 Dose: 40 mg Tamsulosin HCl (Flomax) 0.4 mg PO DAILY [facility] Last Admin: 04/14/17 09:31 Dose: 0.4 mg Physical Exam - Head Exam Head Exam: ATRAUMATIC, NORMAL INSPECTION - Eye Exam Eye Exam: EOMI, PERRL - ENT Exam ENT Exam: Mucous Membranes Moist - Neck Exam Neck exam: Negative for: Lymphadenopathy - Respiratory Exam Respiratory Exam: Decreased Breath Sounds (at bases) - Cardiovascular Exam Cardiovascular Exam: Irregular Rhythm - GI/Abdominal Exam GI & Abdominal Exam: Normal Bowel Sounds, Soft. absent: Organomegaly, Tenderness - Extremities Exam Extremities exam: Positive for: pedal edema Additional comments: b/l UE swelling - Neurological Exam Neurological exam: Alert, Oriented x3 Results - Vital Signs Recent Vital Signs: Last Vital Signs Temp 97.8 F 04/14/17 09:16 Pulse 103 H 04/14/17 10:00 Resp 20 04/14/17 09:16 BP 123/73 04/14/17 09:31 Pulse Ox 98 04/14/17 09:16 - Labs Result Diagrams: 04/14/17 10:30 04/14/17 10:30 Labs: Laboratory Results - last 24 hr 04/13/17 04/14/17 04/14/17 21:27 07:06 10:30 WBC 49.5 H* RBC 3.65 Hgb 11.4 L Hct 34.2 L MCV 93.7 MCH 31.2 MCHC 33.3 RDW 21.0 H Plt Count 153 MPV 9.0 PT INR APTT Sodium Potassium Chloride Carbon Dioxide Anion Gap BUN Creatinine Est GFR ( Amer) Est GFR (Non-Af Amer) POC Glucose (mg/dL) 121 H 110 Random Glucose Calcium Total Bilirubin AST ALT Alkaline Phosphatase Total Protein Albumin Globulin Albumin/Globulin Ratio 04/14/17 04/14/17 04/14/17 10:30 11:23 12:42 WBC RBC Hgb Hct MCV MCH MCHC RDW Plt Count MPV PT 12.1 H INR 1.12 H APTT 32.4 H Sodium 139 Potassium 3.4 L Chloride 99 Carbon Dioxide 31 Anion Gap 12 BUN 8 Creatinine 0.9 Est GFR ( Amer) > 60 Est GFR (Non-Af Amer) > 60 POC Glucose (mg/dL) 164 H Random Glucose 170 H Calcium 8.1 L Total Bilirubin 0.3 AST 28 ALT 44 Alkaline Phosphatase 219 H Total Protein 6.0 Albumin 3.2 Globulin 2.8 Albumin/Globulin Ratio 1.1 Assessment & Plan - Assessment and Plan (Free Text) Assessment: Metastatic pancreatic cancer h/o RUE DVT and now with evidence of SVC thrombus h/o CAD with likely CHF exacerbation His WBC is markedly elevated, though it could be secondary to recent growth factors. No evidence of infection but he should be monitored closely. Continue diuresis and management of CHF as per cardiology. He will resume chemotherapy once discharged. Last PET scan in January showed excellent response. Continue Lovenox in therapeutic doses. Monitor for bleeding. Can leave port a cath in place for now. Thank you for the consult [place] Willard MD - Date & Time Date: 04/14/17 Time: 16:33
--- NOTE | 2017-04-14 18:08 | CP.PCM.PN ---
Subjective - Date & Time of Evaluation Date of Evaluation: 04/14/17 Time of Evaluation: 12:15 - Subjective Subjective: Comfortable, afebrile. Objective - Vital Signs/Intake and Output Vital Signs (last 24 hours): Temp Pulse Resp BP Pulse Ox 98.1 F 87 18 112/65 94 L 04/13/17 16:46 04/13/17 16:46 04/13/17 16:46 04/13/17 16:46 04/13/17 16:46 Intake and Output: 04/13/17 04/14/17 18:59 06:59 Intake Total 840 Output Total 200 Balance 640 - Medications Medications: Current Medications Albuterol/Ipratropium (Duoneb 3 Mg/0.5 Mg (3 Ml) Ud) 3 ml IH Q2H PRN PRN Reason: Shortness of Breath Aspirin (Aspirin Chewable) 81 mg PO DAILY [facility] Last Admin: 04/13/17 09:29 Dose: 81 mg Calcium Carbonate (Oscal) 500 mg PO DAILY [facility] Last Admin: 04/13/17 09:29 Dose: 500 mg Digoxin (Lanoxin) 0.25 mg PO 1400 [facility] Last Admin: 04/13/17 13:12 Dose: 0.25 mg Doxycycline Hyclate (Doryx) 100 mg PO Q12 [facility] PRN Reason: Protocol Last Admin: 04/13/17 10:23 Dose: 100 mg Enoxaparin Sodium (Lovenox) 80 mg SC Q12H [facility] PRN Reason: Protocol Last Admin: 04/13/17 13:13 Dose: 80 mg Furosemide (Lasix) 40 mg IVP Q12 [facility] Meropenem 1g/NS 100mL IVPB (Meropenem 1g/Ns 100ml Ivpb) 1 gm in 100 mls @ 100 mls/hr IVPB Q8 [facility] PRN Reason: Protocol Stop: 04/20/17 14:01 Last Admin: 04/13/17 13:12 Dose: 100 mls/hr Insulin Human Lispro (Humalog Med) 0 units SC ACHS [facility] PRN Reason: Protocol Last Admin: 04/13/17 16:38 Dose: 1 units Pantoprazole Sodium (Protonix Ec Tab) 40 mg PO 0600,1600 [facility] Last Admin: 04/13/17 16:38 Dose: 40 mg Tamsulosin HCl (Flomax) 0.4 mg PO DAILY [facility] Last Admin: 04/13/17 09:29 Dose: 0.4 mg - Labs Labs: 04/13/17 05:00 04/13/17 05:00 PT 12.1 Seconds (9.9-11.8) H 04/12/17 16:50 INR 1.12 (0.93-1.08) H 04/12/17 16:50 APTT 61.0 Seconds (23.7-30.8) H 04/12/17 16:50 - Constitutional Appears: Non-toxic, No Acute Distress - Head Exam Head Exam: NORMAL INSPECTION - ENT Exam ENT Exam: Mucous Membranes Moist - Neck Exam Neck Exam: absent: Meningismus - Respiratory Exam Respiratory Exam: Decreased Breath Sounds - Cardiovascular Exam Cardiovascular Exam: +S1, +S2 - GI/Abdominal Exam GI & Abdominal Exam: Soft. absent: Tenderness Assessment and Plan - Assessment and Plan (Free Text) Plan: assessment marked leukocytosis with systemic inflammatory response syndrome, probably due to Neulasta on top of bilateral pleural effusions probably due to cancer, as well as sepsis due to gram negative bacilli bacteremia, source to be determined R/O HCAP inferior vena cava thrombus history of obstructive jaundice with sepsis and leukocytosis and probable hospital-acquired pneumonia pancreatic adenocarcinoma on chemotherapy history of Left hand IV site superficial thrombophlebitis S/P treatment with Zyvox Gilbert's esophagitis S/P exploratory laparoscopy and gastrojejunostomy CAD atrial fibrillation DM chronic CHF HTN history of nephrolithiasis Plan continue Doxycycline and Merrem Day 2 pending identification and sensitivities of the gram negative bacilli in the blood Will get CT scan of the abdomen and pelvis will continue to monitor clinically
[2017-04-15] MEDS: Meropenem 1g/NS 100mL IVPB 1 GM/100 ML PIGGYBACK IVPB SCH ×3 (06:17→21:51)
[2017-04-15] MEDS: Pantoprazole 40 mg EC Tab PO SCH ×2 (06:17→18:49)
--- NOTE | 2017-04-15 06:50 | CP.PCM.PN ---
<Halima Garcia - Last Filed: 04/15/17 16:06> Subjective - Date & Time of Evaluation Date of Evaluation: 04/15/17 Time of Evaluation: 07:55 - Subjective Subjective: Progress note for Dr Low and Garcia johnson. Patient seating comfortably on the chair. Patient with no overnight acute vents. Patient reports he wasn't able to sleep due to noise from his neighbor. Patient denies chest pain, sob, n/v/d. Objective - Vital Signs/Intake and Output Vital Signs (last 24 hours): Temp Pulse Resp BP Pulse Ox 98.2 F 102 H 18 120/72 97 04/14/17 16:37 04/15/17 02:00 04/14/17 16:37 04/14/17 21:12 04/14/17 16:37 Intake and Output: 04/14/17 04/15/17 18:59 06:59 Intake Total 640 660 Output Total 625 Balance 640 35 - Medications Medications: Current Medications Albuterol/Ipratropium (Duoneb 3 Mg/0.5 Mg (3 Ml) Ud) 3 ml IH Q2H PRN PRN Reason: Shortness of Breath Aspirin (Aspirin Chewable) 81 mg PO DAILY [facility] Last Admin: 04/14/17 09:40 Dose: Not Given Calcium Carbonate (Oscal) 500 mg PO DAILY [facility] Last Admin: 04/14/17 09:31 Dose: 500 mg Digoxin (Lanoxin) 0.25 mg PO 1400 [facility] Last Admin: 04/14/17 13:19 Dose: 0.25 mg Doxycycline Hyclate (Doryx) 100 mg PO Q12 [facility] PRN Reason: Protocol Last Admin: 04/14/17 21:14 Dose: 100 mg Enoxaparin Sodium (Lovenox) 80 mg SC Q12 [facility] PRN Reason: Protocol Last Admin: 04/14/17 21:14 Dose: 80 mg Furosemide (Lasix) 40 mg IVP Q12 [facility] Last Admin: 04/14/17 21:12 Dose: 40 mg Meropenem 1g/NS 100mL IVPB (Meropenem 1g/Ns 100ml Ivpb) 1 gm in 100 mls @ 100 mls/hr IVPB Q8 [facility] PRN Reason: Protocol Stop: 04/20/17 14:01 Last Admin: 04/15/17 06:17 Dose: 100 mls/hr Insulin Human Lispro (Humalog Med) 0 units SC ACHS [facility] PRN Reason: Protocol Last Admin: 04/14/17 22:56 Dose: Not Given Pantoprazole Sodium (Protonix Ec Tab) 40 mg PO 0600,1600 [facility] Last Admin: 04/15/17 06:17 Dose: 40 mg Tamsulosin HCl (Flomax) 0.4 mg PO DAILY [facility] Last Admin: 04/14/17 09:31 Dose: 0.4 mg - Labs Labs: 04/14/17 10:30 04/14/17 10:30 PT 12.1 Seconds (9.9-11.8) H 04/14/17 12:42 INR 1.12 (0.93-1.08) H 04/14/17 12:42 APTT 32.4 Seconds (23.7-30.8) H 04/14/17 12:42 - Constitutional Appears: No Acute Distress, Older Than Stated Age, Cachectic, Chronically Ill - Head Exam Head Exam: ATRAUMATIC, NORMAL INSPECTION, NORMOCEPHALIC - Eye Exam Eye Exam: EOMI, Normal appearance, PERRL. absent: Scleral icterus (pale) Pupil Exam: NORMAL ACCOMODATION - ENT Exam ENT Exam: Mucous Membranes Dry - Neck Exam Neck Exam: Full ROM, Normal Inspection Additional comments: Right sided chemo port, with clean dressing, no signs of infection. No erythema or drainage. - Respiratory Exam Respiratory Exam: Decreased Breath Sounds (at the bases. ), NORMAL BREATHING PATTERN. absent: Rales, Rhonchi, Wheezes, Respiratory Distress, Stridor - Cardiovascular Exam Cardiovascular Exam: Irregular Rhythm, JVD, +S1, +S2. absent: Bradycardia, Tachycardia - GI/Abdominal Exam GI & Abdominal Exam: Soft, Normal Bowel Sounds. absent: Distended, Firm, Guarding, Rigid, Tenderness Additional comments: old surgical scar intact, no erythema or drainage. - Extremities Exam Extremities Exam: Pedal Edema (+3 pitting edema in bilateral upper and lower extremities. ). absent: Tenderness - Back Exam Back Exam: NORMAL INSPECTION - Neurological Exam Neurological Exam: Alert, Awake, Oriented x3 - Psychiatric Exam Psychiatric exam: Normal Affect, Normal Mood - Skin Skin Exam: Dry, Erythema (lower extremities. ), Intact, Warm Assessment and Plan - Assessment and Plan (Free Text) Assessment: Patient is a 66 y/o with PMHx of pancreatic CA s/p surgery, s/p neulesta ( last shot was last week), Afib ( not on anticoag), CAD s/p stents, Systolic CHF with LVEF of 25%, NIDDM2, h/o nephrolithiasis whom presented with dyspnea on exertion and was found to have pleural effusion and SVC occlusion on CT. Plan: 1) Dyspnea on exertion likely 2nd to decompensated CHF complicated with occlusive disease of SVC and pleural effusion +/- HAP. - Patient continues to be afebrile, still have elevated WBC. - Procal elevated, making the possibility of pneumonia high. - Patient also has bacteremia - CT chest revealed large right pleural effusion and multiple atelectasis. - IR consulted for possible thoracentesis, however no intervention is currently planned. - Recent echo with LVEF of 25%, with hypokinesis of the LV, thus the pleural effusion may also be due to CHF, however since patient has pancreatic cancer, it could be metastasis. - Will continue with lasix 40 mg ivp bid. - Duoneb prn for SOB. - Pending cardiology eval. 2) SIRS with gram negative dar bacteremia, - No clear etiology, - R/o chemo port infection - CT abdo and pelvis ordered by ID, pending. - Will obtain cultures from the port, - Mild decrease in leukocytosis - Pending sensitivity of the cultures. - Otherwise patient remains afebrile. - ID following, on merrem, and doxy. 3) RVR Afib- resolved - Patient has [id number] score of 4, hasbled score of 2, as per patient, anticoag was discontinued due to gi bleed in the past. - Patient was started on Lovenox therapeutic dose. - Will continue with digoxin. 4) Occlusion of SVC with collateral filling. - Chemo catheter versus malignancy versus malignancy induced hypercoagulable states as possible causes - Will continue with therapeutic dose of lovenox - head of bed elevation above 30 degrees, supplemental oxygen prn. - IR consulted, no intervention? 5) DM- Will continue ISS, fingerstcik achs, and carb controlled diet. 6) Hypokalemia- likely 2nd to diuretics -will continue to monitor. 7) Bilateral upper and lower extremities edema- multifactorial, SVC occlusion, pleural effusion and decompensated. - U/S of the bilateral upper and lower extremities with no DVT - No signs of cyanosis, radial and dorsalis pedis pulses +2 - No facial swelling/plethora - will continue aggressive diuresis as BP tolerates. - Daily weight and I&Os. 8) Acute on chronic anemia- - Work up from 04/2016- with anemia of chronic disease . - h/h stable, will monitor for now. 9) PBH- Will continue flomax 10) Pancreatic cancer - on chemo - Poor prognosis - Palliative consult for advance directives. 11) DVT prophylaxis- Lovenox, Gi prophylaxis is protonix. Patient seen, examined and case discussed with Dr Low. <Scar Low - Last Filed: 05/18/17 16:54> Objective - Vital Signs/Intake and Output Vital Signs (last 24 hours): Temp Pulse Resp BP Pulse Ox 98.1 F 89 20 108/74 97 04/22/17 17:17 04/22/17 17:17 04/22/17 17:17 04/22/17 17:17 04/22/17 17:17 - Labs Labs: 04/22/17 05:45 04/22/17 05:45 PT 11.7 Seconds (9.9-11.8) 04/15/17 06:40 INR 1.08 (0.93-1.08) 04/15/17 06:40 APTT 32.4 Seconds (23.7-30.8) H 04/14/17 12:42 Attending/Attestation - Attestation I have personally seen and examined this patient.: Yes I have fully participated in the care of the patient.: Yes I have reviewed all pertinent clinical information, including history, physical exam and plan: Yes Notes (Text): 05/18/17 16:54 Medical record note made by the resident after discussion with my direction and input after the patient was personally seen and examined by me. I have reviewed the chart and agree that the record accurately reflects by personal performance of the history, physical exam, data review, and medical decision-making, in the course for the patient. I have also personally directed the plan of care.
[2017-04-15 06:58] LABS: INR 1.08 (0.93-1.08)
[2017-04-15 07:01] LABS: HEMATOCRIT 32.4 % (42.0-52.0); MEAN CELL VOLUME 93.4 fl (80.0-105.0); MEAN CORPUSCULAR HEMOGLOBIN 30.8 pg (25.0-35.0); MEAN PLATELET VOLUME 9.4 fl (7.0-11.0); RED CELL DISTRIBUTION WIDTH 21.2 % (11.5-14.5)
[2017-04-15 07:03] LABS: ALB/GLOB RATIO 1.1 (1.1-1.8); ALKALINE PHOSPHATASE 200 U/L (38-126); ALT/SGPT 40 U/L (7-56); AST/SGOT 47 U/L (17-59); BILIRUBIN,TOTAL 0.3 mg/dL (0.2-1.3); BLOOD UREA NITROGEN 11 mg/dL (7-21); CALCIUM 8.1 mg/dL (8.4-10.5); CARBON DIOXIDE 35 mmol/L (21-33); CHLORIDE 97 mmol/L (98-107); GFR AFRICAN-AMERICAN > 60; GLUCOSE,RANDOM 92 mg/dL (70-110); POTASSIUM 3.7 mmol/L (3.6-5.0); SODIUM 137 mmol/L (132-148); TOTAL PROTEIN 5.7 g/dL (5.8-8.3)
[2017-04-15 07:22] LABS: WHITE BLOOD COUNT 48.4 10^3/ul (4.5-11.0)
[2017-04-15] MEDS: Insulin Lispro (humaLOG) MEDIUM Coverage SC SCH ×4 (07:58→21:48)
[2017-04-15] MEDS ORDERED: Potassium Chloride 20 mEq ER Tab PO ONE (08:39)
[2017-04-15] MEDS: Enoxaparin 80 mg Syringe SC SCH ×2 (09:43→21:50)
[2017-04-15] MEDS ORDERED: Enoxaparin 80 mg Syringe SC SCH (10:00)
[2017-04-15] MEDS: Digoxin 250 mcg (0.25 mg) Tab PO SCH (13:09)
--- NOTE | 2017-04-15 15:28 | CP.PCM.PN ---
Subjective - Date & Time of Evaluation Date of Evaluation: 04/15/17 Time of Evaluation: 10:55 - Subjective Subjective: Comfortable in bed, no fevers overnight, no abdominal pain, no SOB, no nausea or vomiting, no diarrhea. Objective - Vital Signs/Intake and Output Vital Signs (last 24 hours): Temp Pulse Resp BP Pulse Ox 98.2 F 76 18 102/61 97 04/14/17 16:37 04/14/17 16:37 04/14/17 16:37 04/14/17 16:37 04/14/17 16:37 Intake and Output: 04/14/17 04/14/17 06:59 18:59 Intake Total 640 Balance 640 - Medications Medications: Current Medications Albuterol/Ipratropium (Duoneb 3 Mg/0.5 Mg (3 Ml) Ud) 3 ml IH Q2H PRN PRN Reason: Shortness of Breath Aspirin (Aspirin Chewable) 81 mg PO DAILY [facility] Last Admin: 04/14/17 09:40 Dose: Not Given Calcium Carbonate (Oscal) 500 mg PO DAILY [facility] Last Admin: 04/14/17 09:31 Dose: 500 mg Digoxin (Lanoxin) 0.25 mg PO 1400 [facility] Last Admin: 04/14/17 13:19 Dose: 0.25 mg Doxycycline Hyclate (Doryx) 100 mg PO Q12 [facility] PRN Reason: Protocol Last Admin: 04/14/17 09:31 Dose: 100 mg Enoxaparin Sodium (Lovenox) 80 mg SC Q12 [facility] PRN Reason: Protocol Furosemide (Lasix) 40 mg IVP Q12 [facility] Last Admin: 04/14/17 09:31 Dose: 40 mg Meropenem 1g/NS 100mL IVPB (Meropenem 1g/Ns 100ml Ivpb) 1 gm in 100 mls @ 100 mls/hr IVPB Q8 [facility] PRN Reason: Protocol Stop: 04/20/17 14:01 Last Admin: 04/14/17 13:18 Dose: 100 mls/hr Insulin Human Lispro (Humalog Med) 0 units SC ACHS [facility] PRN Reason: Protocol Last Admin: 04/14/17 17:30 Dose: Not Given Pantoprazole Sodium (Protonix Ec Tab) 40 mg PO 0600,1600 [facility] Last Admin: 04/14/17 17:34 Dose: 40 mg Tamsulosin HCl (Flomax) 0.4 mg PO DAILY [facility] Last Admin: 04/14/17 09:31 Dose: 0.4 mg - Labs Labs: 04/14/17 10:30 04/14/17 10:30 PT 12.1 Seconds (9.9-11.8) H 04/14/17 12:42 INR 1.12 (0.93-1.08) H 04/14/17 12:42 APTT 32.4 Seconds (23.7-30.8) H 04/14/17 12:42 - Constitutional Appears: Non-toxic, No Acute Distress - Head Exam Head Exam: NORMAL INSPECTION - ENT Exam ENT Exam: Mucous Membranes Moist - Neck Exam Neck Exam: absent: Lymphadenopathy, Meningismus - Respiratory Exam Respiratory Exam: Decreased Breath Sounds Additional comments: right anterior chest wall port site clean and intact - Cardiovascular Exam Cardiovascular Exam: +S1, +S2 - GI/Abdominal Exam GI & Abdominal Exam: Soft. absent: Tenderness Assessment and Plan - Assessment and Plan (Free Text) Plan: assessment marked leukocytosis with systemic inflammatory response syndrome, probably due to Neulasta on top of bilateral pleural effusions probably due to cancer, as well as sepsis due to gram negative bacilli bacteremia, source to be determined R/O HCAP inferior vena cava thrombus history of obstructive jaundice with sepsis and leukocytosis and probable hospital-acquired pneumonia pancreatic adenocarcinoma on chemotherapy history of Left hand IV site superficial thrombophlebitis S/P treatment with Zyvox Gilbert's esophagitis S/P exploratory laparoscopy and gastrojejunostomy CAD atrial fibrillation DM chronic CHF HTN history of nephrolithiasis Plan continue Merrem Day 3 pending identification and sensitivities of the gram negative bacilli in the blood Will get CT scan of the abdomen and pelvis will continue to monitor clinically discussed with Dr. Low
[2017-04-15] MEDS ORDERED: Iohexol 240 (50 ml) ONE (18:21)
--- NOTE | 2017-04-15 23:27 | CT ---
EXAM: CT Abdomen and Pelvis With Intravenous Contrast CLINICAL HISTORY: 66 years old, male; Pain; Abdominal pain and other: Rule out intra-abdominal infection TECHNIQUE: Axial computed tomography images of the abdomen and pelvis with intravenous contrast. All CT scans at this facility use one or more dose reduction techniques, viz.: automated exposure control; ma/kV adjustment per patient size (including targeted exams where dose is matched to indication; i.e. head); or iterative reconstruction technique. Coronal and sagittal reformatted images were created and reviewed. CONTRAST: 50 mL of [id number] administered intravenously. COMPARISON: CT - CHEST,ABD,PEL W/IV CONT ONLY 06/21/2016 9:55:28 AM FINDINGS: Partial visualization of the large right effusion and small left effusion. Bilateral atelectasis. Atherosclerosis. Aortic valve and significant coronary artery calcification. Splenomegaly. Biliary stent noted. Pneumobilia. Evidence of mass in the region of the pancreatic head. Severe pancreatic ductal dilatation. Gallbladder appears collapsed with surrounding periportal fluid. Unenhanced spleen and adrenal glands demonstrate no acute abnormality. Large bilateral renal calculi. No obstructing renal calcification or hydronephrosis. 7.5 cm left renal cyst. No small bowel obstruction. Areas of apparent bowel wall prominence may be due to incomplete bowel distention. Colonic diverticula. Retained fecal material in the colon, correlate for constipation. Subcutaneous edema. Minimal fat containing left inguinal hernia. Degenerative changes. IMPRESSION: Please note evaluation for underlying visceral lesions/abnormalities limited without intravenous contrast. Partial visualization of the large right effusion and small left effusion. Bilateral atelectasis. Biliary stent. Pneumobilia. Evidence of mass in the region of the pancreatic head. Severe pancreatic ductal dilatation. Correlate with history. Evaluation significantly limited without contrast. Gallbladder appears collapsed with surrounding periportal fluid. Splenomegaly. Atherosclerosis. Aortic valve and significant coronary artery calcification. Large bilateral renal calculi. 7.5 cm left renal cyst. Areas of apparent bowel wall prominence may be due to incomplete bowel distention. Colonic diverticula. Retained fecal material in the colon, correlate for constipation. Subcutaneous edema. Additional details/findings as above.
[2017-04-16] MEDS: Meropenem 1g/NS 100mL IVPB 1 GM/100 ML PIGGYBACK IVPB SCH ×3 (05:17→21:20)
[2017-04-16] MEDS: Insulin Lispro (humaLOG) MEDIUM Coverage SC SCH ×3 (07:30→21:17)
[2017-04-16 08:18] LABS: BASO # 0.12 K/mm3 (0.0-2.0); BASO % 0.3 % (0.0-3.0); EOS # 0.5 (0.0-0.7); EOS % 1.1 % (1.5-5.0); GRAN # 37.39 (1.4-6.5); GRAN % 87.2 % (50.0-68.0); HEMATOCRIT 33.4 % (42.0-52.0); LYMPH # 2.3 (1.2-3.4); LYMPH % 5.3 % (22.0-35.0); MEAN CELL VOLUME 93.8 fl (80.0-105.0); MEAN CORPUSCULAR HEMOGLOBIN 31.5 pg (25.0-35.0); MEAN CORPUSCULAR HGB CONC 33.5 g/dl (31.0-37.0); MEAN PLATELET VOLUME 9.4 fl (7.0-11.0); MONO # 2.6 (0.1-0.6); MONO % 6.1 % (1.0-6.0); RED CELL DISTRIBUTION WIDTH 21.3 % (11.5-14.5)
[2017-04-16 08:19] LABS: WHITE BLOOD COUNT 42.8 10^3/ul (4.5-11.0)
[2017-04-16 09:08] LABS: ALB/GLOB RATIO 1.1 (1.1-1.8); ALKALINE PHOSPHATASE 192 U/L (38-126); ALT/SGPT 35 U/L (7-56); AST/SGOT 28 U/L (17-59); BILIRUBIN,TOTAL 0.3 mg/dL (0.2-1.3); BLOOD UREA NITROGEN 14 mg/dL (7-21); CALCIUM 8.2 mg/dL (8.4-10.5); CARBON DIOXIDE 32 mmol/L (21-33); CHLORIDE 98 mmol/L (98-107); GFR AFRICAN-AMERICAN > 60; GLUCOSE,RANDOM 102 mg/dL (70-110); POTASSIUM 3.9 mmol/L (3.6-5.0); SODIUM 135 mmol/L (132-148); TOTAL PROTEIN 5.6 g/dL (5.8-8.3)
[2017-04-16] MEDS: Enoxaparin 80 mg Syringe SC SCH ×2 (09:22→21:19)
--- NOTE | 2017-04-16 11:55 | CP.PCM.PN ---
<Kevin Moore - Last Filed: 04/16/17 11:51> Subjective - Date & Time of Evaluation Date of Evaluation: 04/16/17 Time of Evaluation: 11:00 - Subjective Subjective: Patient seen and examined. Experienced nose bleed in AM which stopped after applying pressure. States swelling in extremities has mildly improved from baseline. Denies fever, chills, chest pain, SOB, abdominal pain, N/V, diarrhea, constipation. Objective - Vital Signs/Intake and Output Vital Signs (last 24 hours): Temp Pulse Resp BP Pulse Ox 97.3 F L 105 H 20 103/53 L 94 L 04/16/17 08:38 04/16/17 10:00 04/16/17 08:38 04/16/17 09:21 04/16/17 08:38 Intake and Output: 04/16/17 04/16/17 06:59 18:59 Intake Total 1530 360 Balance 1530 360 - Medications Medications: Current Medications Albuterol/Ipratropium (Duoneb 3 Mg/0.5 Mg (3 Ml) Ud) 3 ml IH Q2H PRN PRN Reason: Shortness of Breath Aspirin (Aspirin Chewable) 81 mg PO DAILY [facility] Last Admin: 04/16/17 09:21 Dose: 81 mg Calcium Carbonate (Oscal) 500 mg PO DAILY [facility] Last Admin: 04/16/17 09:21 Dose: 500 mg Digoxin (Lanoxin) 0.25 mg PO 1400 [facility] Last Admin: 04/15/17 13:09 Dose: 0.25 mg Enoxaparin Sodium (Lovenox) 80 mg SC Q12 [facility] PRN Reason: Protocol Last Admin: 04/16/17 09:22 Dose: 80 mg Furosemide (Lasix) 60 mg IVP Q12 [facility] Meropenem 1g/NS 100mL IVPB (Meropenem 1g/Ns 100ml Ivpb) 1 gm in 100 mls @ 100 mls/hr IVPB Q8 [facility] PRN Reason: Protocol Stop: 04/20/17 14:01 Last Admin: 04/16/17 05:17 Dose: 100 mls/hr Insulin Human Lispro (Humalog Med) 0 units SC ACHS [facility] PRN Reason: Protocol Last Admin: 04/15/17 21:48 Dose: Not Given Pantoprazole Sodium (Protonix Ec Tab) 40 mg PO 0600,1600 [facility] Last Admin: 04/15/17 18:49 Dose: 40 mg Tamsulosin HCl (Flomax) 0.4 mg PO DAILY [facility] Last Admin: 04/16/17 09:21 Dose: 0.4 mg - Labs Labs: 04/16/17 08:10 04/16/17 08:10 PT 11.7 Seconds (9.9-11.8) 04/15/17 06:40 INR 1.08 (0.93-1.08) 04/15/17 06:40 APTT 32.4 Seconds (23.7-30.8) H 04/14/17 12:42 - Additional Findings Additional findings: - Constitutional Appears: No Acute Distress - Head Exam Head Exam: ATRAUMATIC, NORMAL INSPECTION, NORMOCEPHALIC - Eye Exam Eye Exam: EOMI, Normal appearance, PERRL. absent: Scleral icterus (pale) Pupil Exam: NORMAL ACCOMODATION - ENT Exam ENT Exam: Mucous Membranes Dry - Neck Exam Neck Exam: Full ROM, Normal Inspection Additional comments: Right sided chemo port, with clean dressing, no signs of infection. No erythema or drainage. - Respiratory Exam Respiratory Exam: bibasilar decreased Breath Sounds, NORMAL BREATHING PATTERN. absent: Rales, Rhonchi, Wheezes, Respiratory Distress, Stridor - Cardiovascular Exam Cardiovascular Exam: Irregular Rhythm, JVD, +S1, +S2. absent: Bradycardia, Tachycardia - GI/Abdominal Exam GI & Abdominal Exam: Soft, Normal Bowel Sounds. absent: Distended, Firm, Guarding, Rigid, Tenderness Additional comments: old surgical scar intact, no erythema or drainage. - Extremities Exam Extremities Exam: Pedal Edema (+3 pitting edema in bilateral upper and lower extremities. ). absent: Tenderness - Back Exam Back Exam: NORMAL INSPECTION - Neurological Exam Neurological Exam: Alert, Awake, Oriented x3 - Psychiatric Exam Psychiatric exam: Normal Affect, Normal Mood - Skin Skin Exam: Dry, Erythema (lower extremities. ), Intact, Warm Assessment and Plan - Assessment and Plan (Free Text) Assessment: Assessment: Patient is a 66 y/o with PMHx of pancreatic CA s/p surgery, s/p neulesta ( last shot was last week), Afib ( not on anticoag), CAD s/p stents, Systolic CHF with LVEF of 25%, NIDDM2, h/o nephrolithiasis whom presented with dyspnea on exertion and was found to have pleural effusion and SVC occlusion on CT. Plan: Dyspnea on exertion likely 2nd to decompensated CHF complicated with occlusive disease of SVC and pleural effusion +/- HAP. - increase lasix to 60 mg ivp bid. - Patient continues to be afebrile, still have elevated WBC. - Procal elevated, making the possibility of pneumonia high. - Patient also has bacteremia - CT chest revealed large right pleural effusion and multiple atelectasis. - IR consulted for possible thoracentesis, however no intervention is currently planned. - Recent echo with LVEF of 25%, with hypokinesis of the LV, thus the pleural effusion may also be due to CHF, however since patient has pancreatic cancer, it could be metastasis. - Duoneb prn for SOB. - Pending cardiology eval. Anasarca - increase protein in diet prostat and ensure Epistaxis - resolved Pancreatic cancer - on chemo - Poor prognosis - Palliative consult for advance directives. SIRS with gram negative dar bacteremia, - No clear etiology, - R/o chemo port infection - CT abdo and pelvis ordered by ID, pending. - Will obtain cultures from the port, - Mild decrease in leukocytosis - Pending sensitivity of the cultures. - Otherwise patient remains afebrile. - ID following, on merrem only RVR Afib- resolved - Patient has [id number] score of 4, hasbled score of 2, as per patient, anticoag was discontinued due to gi bleed in the past. - Patient was started on Lovenox therapeutic dose. - Will continue with digoxin. Occlusion of SVC with collateral filling. - Chemo catheter versus malignancy versus malignancy induced hypercoagulable states as possible causes - Will continue with therapeutic dose of lovenox - head of bed elevation above 30 degrees, supplemental oxygen prn. DM- Will continue ISS, fingerstcik achs, and carb controlled diet. Hypokalemia- likely 2nd to diuretics -will continue to monitor. Bilateral upper and lower extremities edema- multifactorial, SVC occlusion, pleural effusion and decompensated. - U/S of the bilateral upper and lower extremities with no DVT - No signs of cyanosis, radial and dorsalis pedis pulses +2 - No facial swelling/plethora - will continue aggressive diuresis as BP tolerates. - Daily weight and I&Os. Acute on chronic anemia- - Work up from 04/2016- with anemia of chronic disease . - h/h stable, will monitor for now. PBH- Will continue flomax DVT prophylaxis- Lovenox, Gi prophylaxis is protonix. Patient seen, examined and case discussed with Dr Low. <Scar Low - Last Filed: 05/18/17 16:54> Objective - Vital Signs/Intake and Output Vital Signs (last 24 hours): Temp Pulse Resp BP Pulse Ox 98.1 F 89 20 108/74 97 04/22/17 17:17 04/22/17 17:17 04/22/17 17:17 04/22/17 17:17 04/22/17 17:17 - Labs Labs: 04/22/17 05:45 04/22/17 05:45 PT 11.7 Seconds (9.9-11.8) 04/15/17 06:40 INR 1.08 (0.93-1.08) 04/15/17 06:40 APTT 32.4 Seconds (23.7-30.8) H 04/14/17 12:42 Attending/Attestation - Attestation I have personally seen and examined this patient.: Yes I have fully participated in the care of the patient.: Yes I have reviewed all pertinent clinical information, including history, physical exam and plan: Yes Notes (Text): 05/18/17 16:54 Medical record note made by the resident after discussion with my direction and input after the patient was personally seen and examined by me. I have reviewed the chart and agree that the record accurately reflects by personal performance of the history, physical exam, data review, and medical decision-making, in the course for the patient. I have also personally directed the plan of care.
--- NOTE | 2017-04-16 13:46 | CP.PCM.PN ---
Subjective - Date & Time of Evaluation Date of Evaluation: 04/16/17 Time of Evaluation: 11:25 - Subjective Subjective: Comfortable, no fevers, no abdominal pain, no diarrhea. Objective - Vital Signs/Intake and Output Vital Signs (last 24 hours): Temp Pulse Resp BP Pulse Ox 98.3 F 81 20 102/70 96 04/15/17 08:41 04/15/17 08:41 04/15/17 08:41 04/15/17 09:43 04/15/17 08:41 Intake and Output: 04/15/17 04/15/17 06:59 18:59 Intake Total 660 960 Output Total 625 Balance 35 960 - Medications Medications: Current Medications Albuterol/Ipratropium (Duoneb 3 Mg/0.5 Mg (3 Ml) Ud) 3 ml IH Q2H PRN PRN Reason: Shortness of Breath Aspirin (Aspirin Chewable) 81 mg PO DAILY [facility] Last Admin: 04/15/17 10:19 Dose: Not Given Calcium Carbonate (Oscal) 500 mg PO DAILY [facility] Last Admin: 04/15/17 09:43 Dose: 500 mg Digoxin (Lanoxin) 0.25 mg PO 1400 [facility] Last Admin: 04/15/17 13:09 Dose: 0.25 mg Doxycycline Hyclate (Doryx) 100 mg PO Q12 [facility] PRN Reason: Protocol Last Admin: 04/15/17 09:43 Dose: 100 mg Enoxaparin Sodium (Lovenox) 80 mg SC Q12 [facility] PRN Reason: Protocol Last Admin: 04/15/17 09:43 Dose: 80 mg Furosemide (Lasix) 40 mg IVP Q12 [facility] Last Admin: 04/15/17 09:43 Dose: 40 mg Meropenem 1g/NS 100mL IVPB (Meropenem 1g/Ns 100ml Ivpb) 1 gm in 100 mls @ 100 mls/hr IVPB Q8 [facility] PRN Reason: Protocol Stop: 04/20/17 14:01 Last Admin: 04/15/17 13:10 Dose: 100 mls/hr Insulin Human Lispro (Humalog Med) 0 units SC ACHS [facility] PRN Reason: Protocol Last Admin: 04/14/17 22:56 Dose: Not Given Pantoprazole Sodium (Protonix Ec Tab) 40 mg PO 0600,1600 [facility] Last Admin: 04/15/17 06:17 Dose: 40 mg Tamsulosin HCl (Flomax) 0.4 mg PO DAILY [facility] Last Admin: 04/15/17 09:43 Dose: 0.4 mg - Labs Labs: 04/15/17 06:40 04/15/17 06:40 PT 11.7 Seconds (9.9-11.8) 04/15/17 06:40 INR 1.08 (0.93-1.08) 04/15/17 06:40 APTT 32.4 Seconds (23.7-30.8) H 04/14/17 12:42 - Constitutional Appears: Non-toxic, No Acute Distress - Head Exam Head Exam: NORMAL INSPECTION - ENT Exam ENT Exam: Mucous Membranes Moist - Neck Exam Neck Exam: absent: Meningismus - Respiratory Exam Respiratory Exam: Decreased Breath Sounds Additional comments: right anterior chest wall port-a-cath site intact and clean - Cardiovascular Exam Cardiovascular Exam: +S1, +S2 - GI/Abdominal Exam GI & Abdominal Exam: Soft. absent: Tenderness Assessment and Plan - Assessment and Plan (Free Text) Plan: assessment marked leukocytosis with systemic inflammatory response syndrome, probably due to Neulasta on top of bilateral pleural effusions probably due to cancer, as well as sepsis due to gram negative bacilli bacteremia, source to be determined inferior vena cava thrombus history of obstructive jaundice with sepsis and leukocytosis and probable hospital-acquired pneumonia pancreatic adenocarcinoma on chemotherapy history of Left hand IV site superficial thrombophlebitis S/P treatment with Zyvox Gilbert's esophagitis S/P exploratory laparoscopy and gastrojejunostomy CAD atrial fibrillation DM chronic CHF HTN history of nephrolithiasis Plan continue Merrem Day 4 pending identification and sensitivities of the gram negative bacilli in the blood (it is an anaerobe, making intra-abdominal source more likely, but CT scan of the abdomen and pelvis did not show an acute pathology but still shows previous findings of biliary stent, pancreatic mass will continue to monitor clinically
[2017-04-16] MEDS: Digoxin 250 mcg (0.25 mg) Tab PO SCH (14:13)
[2017-04-16] MEDS ORDERED: Prostat 15 g packet GT SCH (18:00)
--- NOTE | 2017-04-17 01:40 | CON ---
DATE: 04/16/2017 CARDIOLOGY CONSULTATION HISTORY OF PRESENT ILLNESS: The patient is a 66-year-old male who presents with upper extremity edema. He was found to have superior vena cava obstruction. PAST MEDICAL HISTORY: The patient's past medical history is notable for a documented dilated cardiomyopathy. In addition, the patient has documented pancreatic CA and is status post surgery as well as chemotherapy. He has chronic atrial fibrillation, he is status post PTCA and stent in the past as well as suffers from diabetes mellitus. He does complain of exertional shortness of breath. SOCIAL HISTORY: He is a former smoker. REVIEW OF SYSTEMS: There is no chest pain. Positive shortness of breath. Positive edema in the lower extremities well as the upper extremities. PHYSICAL EXAMINATION: VITAL SIGNS: Blood pressure 103/53, heart rate in the 90s, atrial fibrillation. NECK: Negative JVD. LUNGS: Decreased breath sounds bilaterally. HEART: Reveal S1, S2. EXTREMITIES: Edema in the upper and lower extremities. DIAGNOSTIC DATA: EKG shows atrial fibrillation with nonspecific ST-T changes. BUN and creatinine unremarkable. Glucose varies from 102 to 155. The hemoglobin is 11.2 with a white count of 42,000. IMPRESSION: 1. Superior vena cava obstruction. 2. Edema in the upper and lower extremities. 3. Dilated cardiomyopathy with an ejection fraction of 25% on echocardiogram. 4. History of pancreatic cancer. 5. Atrial fibrillation. 6. Diabetes mellitus. 7. History of percutaneous transluminal coronary angioplasty and stent in the past. 8. Congestive heart failure, acute systolic. 9. Pleural effusions. Given these findings, the patient is ordered Lasix today. If the patient does not respond to IV Lasix or his blood pressure becomes too intolerant to the Lasix, we will consider IV inotropic therapy. Terrence Yoder MD
[2017-04-17] MEDS: Meropenem 1g/NS 100mL IVPB 1 GM/100 ML PIGGYBACK IVPB SCH ×3 (05:55→21:32)
[2017-04-17] MEDS: Pantoprazole 40 mg EC Tab PO SCH ×2 (05:56→17:03)
[2017-04-17 06:32] LABS: BASO # 0.08 K/mm3 (0.0-2.0); BASO % 0.2 % (0.0-3.0); EOS # 0.4 (0.0-0.7); GRAN # 32.02 (1.4-6.5); HEMATOCRIT 32.2 % (42.0-52.0); LYMPH # 2.5 (1.2-3.4); LYMPH % 6.8 % (22.0-35.0); MEAN CELL VOLUME 94.2 fl (80.0-105.0); MEAN CORPUSCULAR HGB CONC 32.9 g/dl (31.0-37.0); MEAN PLATELET VOLUME 9.6 fl (7.0-11.0); MONO # 2.3 (0.1-0.6); RED CELL DISTRIBUTION WIDTH 21.7 % (11.5-14.5)
[2017-04-17 06:36] LABS: WHITE BLOOD COUNT 37.3 10^3/ul (4.5-11.0)
[2017-04-17 06:48] LABS: ALKALINE PHOSPHATASE 230 U/L (38-126); ALT/SGPT 34 U/L (7-56); AST/SGOT 45 U/L (17-59); BILIRUBIN,TOTAL 0.2 mg/dL (0.2-1.3); BLOOD UREA NITROGEN 16 mg/dL (7-21); CARBON DIOXIDE 33 mmol/L (21-33); CHLORIDE 98 mmol/L (98-107); GFR AFRICAN-AMERICAN > 60; GLUCOSE,RANDOM 93 mg/dL (70-110); POTASSIUM 4.1 mmol/L (3.6-5.0); SODIUM 135 mmol/L (132-148); TOTAL PROTEIN 5.6 g/dL (5.8-8.3)
--- NOTE | 2017-04-17 07:09 | CP.PCM.PN ---
Subjective - Date & Time of Evaluation Date of Evaluation: 04/17/17 Time of Evaluation: 07:05 - Subjective Subjective: PGY-[address] Garcia DUVALL Denies CP, SOB, n/v/d/c, dysuria. last bm yesterday Objective - Vital Signs/Intake and Output Vital Signs (last 24 hours): Temp Pulse Resp BP Pulse Ox 97.5 F L 95 H 19 104/67 97 04/16/17 16:00 04/17/17 06:00 04/16/17 16:00 04/16/17 16:00 04/16/17 16:00 Intake and Output: 04/17/17 04/17/17 06:59 18:59 Intake Total 540 Output Total 600 Balance -60 - Medications Medications: Current Medications Albuterol/Ipratropium (Duoneb 3 Mg/0.5 Mg (3 Ml) Ud) 3 ml IH Q2H PRN PRN Reason: Shortness of Breath Aspirin (Aspirin Chewable) 81 mg PO DAILY [facility] Last Admin: 04/16/17 09:21 Dose: 81 mg Calcium Carbonate (Oscal) 500 mg PO DAILY [facility] Last Admin: 04/16/17 09:21 Dose: 500 mg Digoxin (Lanoxin) 0.25 mg PO 1400 [facility] Last Admin: 04/16/17 14:13 Dose: 0.25 mg Enoxaparin Sodium (Lovenox) 80 mg SC Q12 [facility] PRN Reason: Protocol Last Admin: 04/16/17 21:19 Dose: 80 mg Furosemide (Lasix) 60 mg IVP Q12 [facility] Meropenem 1g/NS 100mL IVPB (Meropenem 1g/Ns 100ml Ivpb) 1 gm in 100 mls @ 100 mls/hr IVPB Q8 [facility] PRN Reason: Protocol Stop: 04/20/17 14:01 Last Admin: 04/17/17 05:55 Dose: 100 mls/hr Insulin Human Lispro (Humalog Med) 0 units SC ACHS [facility] PRN Reason: Protocol Last Admin: 04/16/17 21:17 Dose: Not Given Pantoprazole Sodium (Protonix Ec Tab) 40 mg PO 0600,1600 [facility] Last Admin: 04/17/17 05:56 Dose: 40 mg Tamsulosin HCl (Flomax) 0.4 mg PO DAILY [facility] Last Admin: 04/16/17 09:21 Dose: 0.4 mg - Labs Labs: 04/17/17 06:13 04/16/17 08:10 PT 11.7 Seconds (9.9-11.8) 04/15/17 06:40 INR 1.08 (0.93-1.08) 04/15/17 06:40 APTT 32.4 Seconds (23.7-30.8) H 04/14/17 12:42 - Constitutional Appears: No Acute Distress - Head Exam Head Exam: ATRAUMATIC, NORMAL INSPECTION, NORMOCEPHALIC - Eye Exam Eye Exam: EOMI, Normal appearance, PERRL. absent: Scleral icterus Pupil Exam: NORMAL ACCOMODATION - ENT Exam ENT Exam: Mucous Membranes Moist - Neck Exam Additional comments: supple - Respiratory Exam Respiratory Exam: Clear to Ausculation Bilateral. absent: Rales, Rhonchi, Wheezes - Cardiovascular Exam Cardiovascular Exam: REGULAR RHYTHM, +S1, +S2 Additional comments: port intact. No erythema - GI/Abdominal Exam GI & Abdominal Exam: Soft, Normal Bowel Sounds. absent: Distended, Firm, Guarding, Tenderness - Extremities Exam Extremities Exam: Normal Capillary Refill. absent: Calf Tenderness, Pedal Edema - Back Exam Back Exam: absent: CVA tenderness (L), CVA tenderness (R) - Neurological Exam Neurological Exam: Alert, Awake, Oriented x3 - Psychiatric Exam Psychiatric exam: Normal Affect, Normal Mood - Skin Skin Exam: Dry, Warm Assessment and Plan - Assessment and Plan (Free Text) Plan: Patient is a 66 y/o with PMHx of metastatic pancreatic CA s/p surgery on Gemcitabine/Abraxane (last chemo 04/05/17 with neulesta 04/06), Afib (on dig, not on anticoag), CAD s/p stents, Systolic CHF with LVEF of 25%, NIDDM2, h/o nephrolithiasis whom presented with (1) dyspnea on exertion and (2) generalized swelling. He has recently diagnosed with RUE DVT was on eliqui, got hematuria, then switched to lovenox. On admission, he was found to have b/l pleural effusion and SVC thrombus with collateral formation per CT, restarted lovenox. US doppler negative for DVT. Lasix started for SOB. Pt will undergo thoracentesis with IR today. lovenox held Marked Leukocytosis of 37, Afebrile - Possibly Systemic inflammatory response syndrome, due to Neulasta vs bilateral pleural effusions from cancer - Sepsis due to gram negative bacilli bacteremia with possible pneumonia from elevated procalc Acute on chronic anemia (+) occult GI bleed - Stool occult positve (04/17) - Consider GI consult for EGD/Colonoscopy - Work up from 04/2016- with anemia of chronic disease . - h/h stable, will monitor for now. Gram negative dar bacteremia of prevotella melaninogenica (04/12) R/o chemo port infection, No clear etiology - Merrem (day 5) - CT abdo and pelvis: it is an anaerobe, making intra-abdominal source more likely, but CT scan of the abdomen and pelvis did not show an acute pathology but still shows previous findings of biliary stent, pancreatic mass - Will obtain cultures from the port - Pending sensitivity of the cultures - Repeat blood culture (04/15) neg Dyspnea on exertion Likely 2nd to below Decompensated CHF (Acute on chronic systolic) due to Dilated cardiomyopathy EF 25% with Hx PTCA and stents Occlusive disease of SVC B/L pleural effusion +/- HAP - increase lasix to 60 mg ivp bid. - CT chest revealed large right pleural effusion and multiple atelectasis. - IR consulted for possible thoracentesis, however no intervention is currently planned. - Recent echo with LVEF of 25%, with hypokinesis of the LV, thus the pleural effusion may also be due to CHF, however since patient has pancreatic cancer, it could be metastasis. - Duoneb prn for SOB. - Pending cardiology eval. Occlusion of SVC with collateral filling. - Chemo catheter versus malignancy versus malignancy induced hypercoagulable states as possible causes - Will continue with therapeutic dose of lovenox - head of bed elevation above 30 degrees, supplemental oxygen prn. Anasarca - supple: prostat and ensure - add 6g protein to food Epistaxis - resolved Pancreatic cancer, diagnosed 2016 - on chemo - Poor prognosis - Palliative consult for advance directives. - He will resume chemotherapy once discharged. Last PET scan in January showed excellent response. RVR Afib- resolved - Patient has [id number] score of 4, hasbled score of 2, as per patient, anticoag was discontinued due to gi bleed in the past. - Patient was started on Lovenox therapeutic dose. - Will continue with digoxin 0.25 daily Diabetes Mellitus- Will continue ISS, fingerstcik achs, and carb controlled diet. Hypokalemia- likely 2nd to diuretics -will continue to monitor. Bilateral upper and lower extremities edema- multifactorial, SVC occlusion, pleural effusion and decompensated. - U/S of the bilateral upper and lower extremities with no DVT - No signs of cyanosis, radial and dorsalis pedis pulses +2 - No facial swelling/plethora - will continue aggressive diuresis as BP tolerates. - Daily weight and I&Os. CAD - ASA PBH - Will continue flomax DVT prophylaxis- Lovenox, Gi prophylaxis is protonix. Discharge planning - Write Rx for ensure, prostate s/r/d/w Dr. Zelaya
[2017-04-17] MEDS: Insulin Lispro (humaLOG) MEDIUM Coverage SC SCH ×4 (09:12→21:30)
[2017-04-17] MEDS: Enoxaparin 80 mg Syringe SC SCH ×2 (09:13→21:32)
[2017-04-17 11:41] LABS: BODY FLUID TYPE PLEURAL
[2017-04-17 12:21] LABS: BF GROSS APPEARANCE CLEAR (CLEAR); BODY FLUID TOTAL COUNT 100 (0-0)
[2017-04-17] MEDS: Digoxin 250 mcg (0.25 mg) Tab PO SCH (13:31)
--- NOTE | 2017-04-17 17:12 | PN ---
DATE: 04/17/2017 SUBJECTIVE: The patient seen earlier this morning in room 377, bed 2. No fevers and chills. PHYSICAL EXAMINATION VITAL SIGNS: Temperature is 98, blood pressure is 101/50, respiratory rate is 16. HEENT: Unremarkable. NECK: Supple. LUNGS: Decreased breath sounds. HEART: Normal S1 and S2. ABDOMEN: Soft. LABORATORY DATA: Reveals a white count of 37,000, hemoglobin of 10, platelets of 303. Chemistries reveals a BUN of 16, creatinine of 0.9 and urinalysis is noted. Microbiology reveals the repeat blood culture negative. The initial one grew Prevotella melaninogenica. REVIEW OF ORDERS: The patient is on meropenem. ASSESSMENT AND PLAN: A 66-year-old with systemic inflammatory response syndrome, probably leukocytosis secondary to Neulasta, bilateral pleural effusions due to cancer as well as sepsis with Prevotella bacteremia, and the patient with inferior vena cava thrombus, history of obstructive jaundice and sepsis, pancreatic adenocarcinoma, on chemotherapy, diabetic, coronary artery disease, on meropenem day #5. Source of the Prevotella bacteremia to be determined. The repeat cultures are negative. Sensitivity of the Prevotella is pending. We will follow with you. Jonathan Alvarez MD
--- NOTE | 2017-04-17 17:32 | PN ---
DATE: 04/17/2017 SUBJECTIVE: The patient states that his swelling is lot better, but he still is having some edema. White count remains elevated, though he is feeling a lot better. PHYSICAL EXAMINATION: VITAL SIGNS: Reveal a temperature of 97.7, pulse of 88, respiratory rate of 20 and a blood pressure of 101/57. GENERAL: The patient is an elderly male, lying in bed, in no acute distress. HEAD AND NECK: Normocephalic, atraumatic. Eyes: Pupils equal, round, and reactive to light and accommodation. Extraocular muscles are intact. There is some pallor. No icterus is noted. NECK: Supple with no adenopathy. EXTREMITIES: Bilateral upper extremity and lower extremity edema is noted. CARDIOVASCULAR: S1 and S2 are heard. LUNGS: Decreased breath sounds bilaterally at bases. ABDOMEN: Positive bowel sounds, soft, nontender, nondistended. No organomegaly is palpated. LABORATORY DATA: Reveal a white count of 37.3, hemoglobin of 10.6, hematocrit of 32.2, MCV of 94.2 and a platelet count of 303. His chemistries are within normal limits. ASSESSMENT AND PLAN: Elderly male with known pancreatic cancer, which is inoperable. He has been getting chemotherapy with Gemzar and Abraxane as an outpatient, tolerating it well. Recently developed a clot in the subclavian and jugular secondary to his Port-A-Cath, has been taking Lovenox with no improvement in his edema. Now, admitted with worsening edema. He also has a poor ejection fraction and currently is being diuresed. He also underwent ultrasound-guided thoracentesis today and 2300 mL of clear fluid was drawn. We will await cytology on that. Chemotherapy will be on hold while the patient is being actively diuresed as well as his pleural effusion is being addressed. I have discussed that with the patient. Most likely we will not resume until cardiac has cleared the patient. Thank you for the consult. We will follow with you. Dalia Rey MD
--- NOTE | 2017-04-17 17:42 | US ---
PROCEDURE: Ultrasound guided right thoracentesis. CLINICAL HISTORY: Bilateral pleural effusions. Shortness of breath. History prostate CA. Needs thoracentesis. PHYSICIAN(S): Terrence Dorantes MD. TECHNIQUE: The relative risks and indications of the procedure were explained to the patient and consent obtained. The patient was placed in a sitting position on the stretcher and sonography of the right chest performed. This revealed a moderate sized rightpleural effusion. A right posterolateral intercostal approach was selected and the area prepped and draped usual sterile fashion. 1% Xylocaine was used to anesthetize the skin and soft tissues. A 7 Sinhala thoracentesis catheter was trocared into the right pleural cavity and 2400of clear straw-colored fluid aspirated. Specimens were sent to the lab. IMPRESSION: 1. Ultrasound guided right thoracentesis. 2400cc of clear, straw-colored fluid were aspirated. The appropriate labs were sent.
--- NOTE | 2017-04-17 22:37 | PN ---
DATE: 04/17/2017 SUBJECTIVE: The patient's breathing is much better after thoracentesis. OBJECTIVE: VITAL SIGNS: Blood pressure is 101/57, the heart rate is in the 80s. NECK: Negative JVD. LUNGS: Decreased breath sounds. HEART: Reveals S1, S2. EXTREMITIES: Without edema. LABORATORY DATA: Hemoglobin is 10.6, white count is down to 37, BUN and creatinine is 16 and 0.9, glucose is 160. IMPRESSION: 1. His breathing is better after thoracentesis 2. Dilated cardiomyopathy with an EF of 25%. 3. Edema in the upper and lower extremities are improved. 4. Atrial fibrillation. 5. History of PTCA and stent. PLAN: Given these findings, given that his breathing is better, we will hold off on inotropic therapy at this time. We will continue to monitor over the next 24 hours. Trerence Yoder MD
[2017-04-18] MEDS: Meropenem 1g/NS 100mL IVPB 1 GM/100 ML PIGGYBACK IVPB SCH ×2 (05:30→14:12)
[2017-04-18] MEDS: Pantoprazole 40 mg EC Tab PO SCH ×2 (05:31→17:49)
[2017-04-18 06:34] LABS: BASO # 0.09 K/mm3 (0.0-2.0); BASO % 0.2 % (0.0-3.0); EOS # 0.4 (0.0-0.7); EOS % 1.1 % (1.5-5.0); GRAN # 31.7 (1.4-6.5); GRAN % 83.9 % (50.0-68.0); HEMATOCRIT 33.3 % (42.0-52.0); LYMPH # 2.3 (1.2-3.4); LYMPH % 6.1 % (22.0-35.0); MEAN CELL VOLUME 93.5 fl (80.0-105.0); MEAN CORPUSCULAR HEMOGLOBIN 31.7 pg (25.0-35.0); MEAN CORPUSCULAR HGB CONC 33.9 g/dl (31.0-37.0); MEAN PLATELET VOLUME 9.3 fl (7.0-11.0); MONO # 3.3 (0.1-0.6); MONO % 8.7 % (1.0-6.0); RED CELL DISTRIBUTION WIDTH 21.7 % (11.5-14.5)
[2017-04-18 06:51] LABS: WHITE BLOOD COUNT 37.8 10^3/ul (4.5-11.0)
[2017-04-18 07:08] LABS: ALKALINE PHOSPHATASE 191 U/L (38-126); ALT/SGPT 33 U/L (7-56); AST/SGOT 22 U/L (17-59); BILIRUBIN,TOTAL 0.4 mg/dL (0.2-1.3); BLOOD UREA NITROGEN 18 mg/dL (7-21); CALCIUM 7.8 mg/dL (8.4-10.5); CARBON DIOXIDE 32 mmol/L (21-33); CHLORIDE 98 mmol/L (95-110); GFR AFRICAN-AMERICAN > 60; GLUCOSE,RANDOM 96 mg/dL (70-110); POTASSIUM 4.1 mmol/L (3.6-5.0); SODIUM 136 mmol/L (132-148); TOTAL PROTEIN 5.6 g/dL (5.8-8.3)
[2017-04-18] MEDS: Insulin Lispro (humaLOG) MEDIUM Coverage SC SCH ×3 (07:59→18:16)
[2017-04-18] MEDS: Enoxaparin 80 mg Syringe SC SCH ×2 (09:57→22:17)
--- NOTE | 2017-04-18 11:29 | PN ---
DATE: 04/18/2017 SUBJECTIVE: The patient's breathing has markedly improved after thoracentesis. PHYSICAL EXAMINATION: VITAL SIGNS: Blood pressure is 108/68, the heart rate is in the 90s. NECK: Negative JVD. LUNGS: Better breath sounds throughout. HEART: Reveal S1, S2. EXTREMITIES: Without edema. LABORATORY DATA: Hemoglobin is 11.3, the white count is still 37,000. Chemistries, BUN and creatinine unremarkable. IMPRESSION: 1. Status post thoracentesis. 2. Cardiomyopathy. 3. Atrial fibrillation. 4. Resolution of edema in the lower extremities. 5. History of percutaneous transluminal coronary angioplasty and stent. Given these findings, no plans for ionotropic therapy now given the patient's improvement of his respiratory status. We will DC telemetry today. Terrence Yoder MD
--- NOTE | 2017-04-18 11:31 | RAD ---
HISTORY: rt thoracentesis COMPARISON: 04/12/2017 TECHNIQUE: Chest PA and lateral FINDINGS: LUNGS: No active pulmonary disease. PLEURA: There is a decrease in the size of the right pleural effusion. There is no pneumothorax post thoracentesis CARDIOVASCULAR: Normal. OSSEOUS STRUCTURES: No significant abnormalities. VISUALIZED UPPER ABDOMEN: Normal. OTHER FINDINGS: None. IMPRESSION: There is a decrease in the size of the right pleural effusion. There is no pneumothorax post thoracentesis
--- NOTE | 2017-04-18 13:52 | CP.PCM.PN ---
<Kevin Moore - Last Filed: 04/18/17 13:43> Subjective - Date & Time of Evaluation Date of Evaluation: 04/18/17 Time of Evaluation: 11:45 - Subjective Subjective: Patient seen and examined. No acute events overnight. States that his SOB has significantly improved since thoracentesis yesterday. No epistaxis since Sunday morning. Denies fever, chills, chest pain, SOB, abdominal pain, N/V. Objective - Vital Signs/Intake and Output Vital Signs (last 24 hours): Temp Pulse Resp BP Pulse Ox 98.5 F 86 20 123/87 100 04/18/17 06:00 04/18/17 06:00 04/18/17 06:00 04/18/17 09:57 04/18/17 06:00 Intake and Output: 04/18/17 04/18/17 06:59 18:59 Intake Total 540 Output Total 400 Balance 140 - Medications Medications: Current Medications Albuterol/Ipratropium (Duoneb 3 Mg/0.5 Mg (3 Ml) Ud) 3 ml IH Q2H PRN PRN Reason: Shortness of Breath Aspirin (Aspirin Chewable) 81 mg PO DAILY [facility] Last Admin: 04/17/17 09:12 Dose: Not Given Calcium Carbonate (Oscal) 500 mg PO DAILY [facility] Last Admin: 04/18/17 09:57 Dose: 500 mg Digoxin (Lanoxin) 0.25 mg PO 1400 [facility] Last Admin: 04/17/17 13:31 Dose: 0.25 mg Enoxaparin Sodium (Lovenox) 80 mg SC Q12 [facility] PRN Reason: Protocol Last Admin: 04/18/17 09:57 Dose: 80 mg Furosemide (Lasix) 60 mg IVP Q12 [facility] Last Admin: 04/18/17 09:57 Dose: 60 mg Meropenem 1g/NS 100mL IVPB (Meropenem 1g/Ns 100ml Ivpb) 1 gm in 100 mls @ 100 mls/hr IVPB Q8 [facility] PRN Reason: Protocol Stop: 04/20/17 14:01 Last Admin: 04/18/17 05:30 Dose: 100 mls/hr Insulin Human Lispro (Humalog Med) 0 units SC ACHS [facility] PRN Reason: Protocol Last Admin: 04/17/17 21:30 Dose: Not Given Pantoprazole Sodium (Protonix Ec Tab) 40 mg PO 0600,1600 [facility] Last Admin: 04/18/17 05:31 Dose: 40 mg Tamsulosin HCl (Flomax) 0.4 mg PO DAILY [facility] Last Admin: 04/18/17 09:57 Dose: 0.4 mg - Labs Labs: 04/18/17 06:15 04/18/17 06:15 PT 11.7 Seconds (9.9-11.8) 04/15/17 06:40 INR 1.08 (0.93-1.08) 04/15/17 06:40 APTT 32.4 Seconds (23.7-30.8) H 04/14/17 12:42 - Additional Findings Additional findings: - Constitutional Appears: No Acute Distress - Head Exam Head Exam: ATRAUMATIC, NORMAL INSPECTION, NORMOCEPHALIC - Eye Exam Eye Exam: EOMI, Normal appearance, PERRL. absent: Scleral icterus Pupil Exam: NORMAL ACCOMODATION - ENT Exam ENT Exam: Mucous Membranes Moist - Neck Exam Additional comments: supple - Respiratory Exam Respiratory Exam: Clear to Ausculation Bilateral. absent: Rales, Rhonchi, Wheezes - Cardiovascular Exam Cardiovascular Exam: REGULAR RHYTHM, +S1, +S2 Additional comments: Port intact. No erythema - GI/Abdominal Exam GI & Abdominal Exam: Soft, Normal Bowel Sounds. absent: Distended, Firm, Guarding, Tenderness - Extremities Exam Extremities Exam: Normal Capillary Refill. absent: Calf Tenderness, Pedal Edema - Back Exam Back Exam: absent: CVA tenderness (L), CVA tenderness (R) - Neurological Exam Neurological Exam: Alert, Awake, Oriented x3 - Psychiatric Exam Psychiatric exam: Normal Affect, Normal Mood - Skin Skin Exam: Dry, Warm Assessment and Plan - Assessment and Plan (Free Text) Assessment: Patient is a 66 y/o with PMHx of metastatic pancreatic CA s/p surgery on Gemcitabine/Abraxane (last chemo 04/05/17 with neulesta 04/06), Afib (on dig, not on anticoag), CAD s/p stents, Systolic CHF with LVEF of 25%, NIDDM2, h/o nephrolithiasis whom presented with (1) dyspnea on exertion and (2) generalized swelling. He has recently diagnosed with RUE DVT was on eliqui, got hematuria, then switched to lovenox. On admission, he was found to have b/l pleural effusion and SVC thrombus with collateral formation per CT, restarted lovenox. US doppler negative for DVT. Lasix started for SOB. Pt will undergo thoracentesis with IR today. lovenox held Anasarca - supple: prostat and ensure - albumin given Marked Leukocytosis - Likely due to Neulasta vs bilateral pleural effusions from cancer - Sepsis due to gram negative bacilli bacteremia with possible pneumonia from elevated procalc - Pleural fluid fungal and anareobic cultures pending Acute on Chronic Anemia (+) occult GI bleed - Stool occult positve (04/17) - Consider GI consult for EGD/Colonoscopy - Work up from 04/2016- with anemia of chronic disease . - h/h stable, will monitor for now 10.6 --> 11.3 Gram negative dar bacteremia of prevotella melaninogenica (04/12) R/o chemo port infection, No clear etiology - Merrem (day 6) - Cultures from the port - Pending sensitivity of the cultures Decompensated CHF (Acute on chronic systolic) due to Dilated cardiomyopathy EF 25% with Hx PTCA and stents Occlusive disease of SVC B/L pleural effusion +/- HAP - Lasix to 60 mg ivp bid. - Thoracentesis completed yesterday- Ultrasound guided right thoracentesis. 2400cc of clear, straw-colored fluid were aspirated. - Recent echo with LVEF of 25%, with hypokinesis of the LV, thus the pleural effusion may also be due to CHF, however since patient has pancreatic cancer, it could be metastasis. - Duoneb prn for SOB. Occlusion of SVC with collateral filling. - Chemo catheter versus malignancy versus malignancy induced hypercoagulable states as possible causes - Will continue with therapeutic dose of lovenox - Head of bed elevation above 30 degrees, supplemental oxygen prn. Epistaxis - resolved Pancreatic cancer, diagnosed 2016 - On chemo - Poor prognosis - Palliative consult for advance directives - He will resume chemotherapy once discharged. Last PET scan in January showed excellent response. Afib - Patient has [id number] score of 4, hasbled score of 2, as per patient - Lovenox therapeutic dose. - Will continue with digoxin 0.25 daily Diabetes Mellitus- - Will continue ISS, fingerstcik achs, and carb controlled diet. Hypokalemia- likely 2nd to diuretics -Will continue to monitor. Bilateral upper and lower extremities edema- multifactorial, SVC occlusion, pleural effusion and decompensated. - U/S of the bilateral upper and lower extremities with no DVT - No signs of cyanosis, radial and dorsalis pedis pulses +2 - No facial swelling/plethora - will continue aggressive diuresis as BP tolerates. - Daily weight and I&Os. CAD - ASA PBH - Will continue flomax DVT prophylaxis - Lovenox GI prophylaxis - Protonix Discharge Planning - Write Rx for ensure, prostate - TCU eval - PT/OT reval s/r/d/w Dr. Low <Scar Low - Last Filed: 05/18/17 17:23> Objective - Vital Signs/Intake and Output Vital Signs (last 24 hours): Temp Pulse Resp BP Pulse Ox 98.1 F 89 20 108/74 97 04/22/17 17:17 04/22/17 17:17 04/22/17 17:17 04/22/17 17:17 04/22/17 17:17 - Labs Labs: 04/22/17 05:45 04/22/17 05:45 PT 11.7 Seconds (9.9-11.8) 04/15/17 06:40 INR 1.08 (0.93-1.08) 04/15/17 06:40 APTT 32.4 Seconds (23.7-30.8) H 04/14/17 12:42 Attending/Attestation - Attestation I have personally seen and examined this patient.: Yes I have fully participated in the care of the patient.: Yes I have reviewed all pertinent clinical information, including history, physical exam and plan: Yes Notes (Text): 05/18/17 17:23 Medical record note made by the resident after discussion with my direction and input after the patient was personally seen and examined by me. I have reviewed the chart and agree that the record accurately reflects by personal performance of the history, physical exam, data review, and medical decision-making, in the course for the patient. I have also personally directed the plan of care.
[2017-04-18] MEDS: Digoxin 250 mcg (0.25 mg) Tab PO SCH (14:12)
--- NOTE | 2017-04-18 18:40 | CP.PCM.PN ---
Subjective - Date & Time of Evaluation Date of Evaluation: 04/18/17 Time of Evaluation: 17:30 - Subjective Subjective: Comfortable, afebrile, no abdominal pain, breathing better. Objective - Vital Signs/Intake and Output Vital Signs (last 24 hours): Temp Pulse Resp BP Pulse Ox 98.5 F 86 20 123/87 100 04/18/17 06:00 04/18/17 06:00 04/18/17 06:00 04/18/17 09:57 04/18/17 06:00 Intake and Output: 04/18/17 04/18/17 06:59 18:59 Intake Total 540 Output Total 400 Balance 140 - Medications Medications: Current Medications Albuterol/Ipratropium (Duoneb 3 Mg/0.5 Mg (3 Ml) Ud) 3 ml IH Q2H PRN PRN Reason: Shortness of Breath Aspirin (Aspirin Chewable) 81 mg PO DAILY [facility] Last Admin: 04/17/17 09:12 Dose: Not Given Calcium Carbonate (Oscal) 500 mg PO DAILY [facility] Last Admin: 04/18/17 09:57 Dose: 500 mg Digoxin (Lanoxin) 0.25 mg PO 1400 [facility] Last Admin: 04/17/17 13:31 Dose: 0.25 mg Enoxaparin Sodium (Lovenox) 80 mg SC Q12 [facility] PRN Reason: Protocol Last Admin: 04/18/17 09:57 Dose: 80 mg Furosemide (Lasix) 60 mg IVP Q12 [facility] Last Admin: 04/18/17 09:57 Dose: 60 mg Meropenem 1g/NS 100mL IVPB (Meropenem 1g/Ns 100ml Ivpb) 1 gm in 100 mls @ 100 mls/hr IVPB Q8 [facility] PRN Reason: Protocol Stop: 04/20/17 14:01 Last Admin: 04/18/17 05:30 Dose: 100 mls/hr Insulin Human Lispro (Humalog Med) 0 units SC ACHS [facility] PRN Reason: Protocol Last Admin: 04/17/17 21:30 Dose: Not Given Pantoprazole Sodium (Protonix Ec Tab) 40 mg PO 0600,1600 [facility] Last Admin: 04/18/17 05:31 Dose: 40 mg Tamsulosin HCl (Flomax) 0.4 mg PO DAILY [facility] Last Admin: 04/18/17 09:57 Dose: 0.4 mg - Labs Labs: 04/18/17 06:15 04/18/17 06:15 PT 11.7 Seconds (9.9-11.8) 04/15/17 06:40 INR 1.08 (0.93-1.08) 04/15/17 06:40 APTT 32.4 Seconds (23.7-30.8) H 04/14/17 12:42 - Constitutional Appears: Non-toxic, No Acute Distress - Head Exam Head Exam: NORMAL INSPECTION - Neck Exam Neck Exam: absent: Meningismus - Respiratory Exam Respiratory Exam: Decreased Breath Sounds - Cardiovascular Exam Cardiovascular Exam: +S1, +S2 - GI/Abdominal Exam GI & Abdominal Exam: Soft. absent: Tenderness Assessment and Plan - Assessment and Plan (Free Text) Plan: assessment marked leukocytosis with systemic inflammatory response syndrome, probably due to Neulasta on top of bilateral pleural effusions probably due to cancer, as well as sepsis due to Prevotella bacteremia, source to be determined S/P thoracentesis inferior vena cava thrombus history of obstructive jaundice with sepsis and leukocytosis and probable hospital-acquired pneumonia pancreatic adenocarcinoma on chemotherapy history of Left hand IV site superficial thrombophlebitis S/P treatment with Zyvox Gilbert's esophagitis S/P exploratory laparoscopy and gastrojejunostomy CAD atrial fibrillation DM chronic CHF HTN history of nephrolithiasis Plan continue Merrem Day 6 pending sensitivities of the Prevotella in the blood (it is an anaerobe, making intra-abdominal source more likely, but CT scan of the abdomen and pelvis did not show an acute pathology but still shows previous findings of biliary stent, pancreatic mass pleural fluid cx is negative so far will continue to monitor clinically
[2017-04-19] MEDS: Meropenem 1g/NS 100mL IVPB 1 GM/100 ML PIGGYBACK IVPB SCH ×4 (00:48→21:54)
[2017-04-19] MEDS: Pantoprazole 40 mg EC Tab PO SCH ×2 (05:48→17:19)
[2017-04-19 07:26] LABS: ALKALINE PHOSPHATASE 156 U/L (38-126); ALT/SGPT 31 U/L (7-56); AST/SGOT 22 U/L (17-59); BILIRUBIN,TOTAL 0.3 mg/dL (0.2-1.3); BLOOD UREA NITROGEN 19 mg/dL (7-21); CALCIUM 7.9 mg/dL (8.4-10.5); CARBON DIOXIDE 30 mmol/L (21-33); CHLORIDE 99 mmol/L (98-107); GFR AFRICAN-AMERICAN > 60; GLUCOSE,RANDOM 78 mg/dL (70-110); POTASSIUM 4.4 mmol/L (3.6-5.0); SODIUM 136 mmol/L (132-148); TOTAL PROTEIN 5.4 g/dL (5.8-8.3)
[2017-04-19 07:29] LABS: BASO # 0.1 K/mm3 (0.0-2.0); BASO % 0.3 % (0.0-3.0); EOS # 0.6 (0.0-0.7); EOS % 1.8 % (1.5-5.0); GRAN # 24.68 (1.4-6.5); GRAN % 79.3 % (50.0-68.0); HEMATOCRIT 32.3 % (42.0-52.0); LYMPH # 2.8 (1.2-3.4); LYMPH % 9.1 % (22.0-35.0); MEAN CELL VOLUME 94.2 fl (80.0-105.0); MEAN CORPUSCULAR HEMOGLOBIN 31.2 pg (25.0-35.0); MEAN CORPUSCULAR HGB CONC 33.1 g/dl (31.0-37.0); MEAN PLATELET VOLUME 9.5 fl (7.0-11.0); MONO % 9.5 % (1.0-6.0); RED CELL DISTRIBUTION WIDTH 21.9 % (11.5-14.5)
[2017-04-19 07:51] LABS: WHITE BLOOD COUNT 31.1 10^3/ul (4.5-11.0)
[2017-04-19] MEDS: Insulin Lispro (humaLOG) MEDIUM Coverage SC SCH ×4 (09:35→22:53)
[2017-04-19] MEDS: Enoxaparin 80 mg Syringe SC SCH ×2 (09:38→21:55)
--- NOTE | 2017-04-19 09:51 | CP.PCM.PN ---
Subjective - Date & Time of Evaluation Date of Evaluation: 04/19/17 Time of Evaluation: 09:00 - Subjective Subjective: Patient seen and examined at bedside. No acute events overnight. Patient states that the swelling in his legs has significantly improved. Requests to have PT help him climb the stairs in order to evaluate his conditioning. Denies fever, chills, chest pain, SOB, abdominal pain, N/V. Objective - Vital Signs/Intake and Output Vital Signs (last 24 hours): Temp Pulse Resp BP Pulse Ox 98.5 F 93 H 21 114/68 95 04/19/17 08:50 04/19/17 08:50 04/19/17 08:50 04/19/17 09:37 04/19/17 08:50 Intake and Output: 04/19/17 04/19/17 06:59 18:59 Intake Total 540 120 Balance 540 120 - Medications Medications: Current Medications Albuterol/Ipratropium (Duoneb 3 Mg/0.5 Mg (3 Ml) Ud) 3 ml IH Q2H PRN PRN Reason: Shortness of Breath Aspirin (Aspirin Chewable) 81 mg PO DAILY [facility] Last Admin: 04/19/17 09:35 Dose: 81 mg Calcium Carbonate (Oscal) 500 mg PO DAILY [facility] Last Admin: 04/19/17 09:39 Dose: 500 mg Digoxin (Lanoxin) 0.25 mg PO 1400 [facility] Last Admin: 04/18/17 14:12 Dose: 0.25 mg Enoxaparin Sodium (Lovenox) 80 mg SC Q12 [facility] PRN Reason: Protocol Last Admin: 04/19/17 09:38 Dose: 80 mg Furosemide (Lasix) 40 mg IVP Q12 [facility] Meropenem 1g/NS 100mL IVPB (Meropenem 1g/Ns 100ml Ivpb) 1 gm in 100 mls @ 100 mls/hr IVPB Q8 [facility] PRN Reason: Protocol Stop: 04/20/17 14:01 Last Admin: 04/19/17 05:47 Dose: 100 mls/hr Insulin Human Lispro (Humalog Med) 0 units SC ACHS [facility] PRN Reason: Protocol Last Admin: 04/19/17 09:35 Dose: Not Given Pantoprazole Sodium (Protonix Ec Tab) 40 mg PO 0600,1600 [facility] Last Admin: 04/19/17 05:48 Dose: 40 mg Tamsulosin HCl (Flomax) 0.4 mg PO DAILY [facility] Last Admin: 04/19/17 09:35 Dose: 0.4 mg - Labs Labs: 04/19/17 07:00 04/19/17 07:00 PT 11.7 Seconds (9.9-11.8) 04/15/17 06:40 INR 1.08 (0.93-1.08) 04/15/17 06:40 APTT 32.4 Seconds (23.7-30.8) H 04/14/17 12:42 - Skin Additional comments: - Constitutional Appears: No Acute Distress - Head Exam Head Exam: ATRAUMATIC, NORMAL INSPECTION, NORMOCEPHALIC - Eye Exam Eye Exam: EOMI, Normal appearance, PERRL. absent: Scleral icterus Pupil Exam: NORMAL ACCOMODATION - ENT Exam ENT Exam: Mucous Membranes Moist - Neck Exam Additional comments: supple - Respiratory Exam Respiratory Exam: Clear to Ausculation Bilateral. absent: Rales, Rhonchi, Wheezes - Cardiovascular Exam Cardiovascular Exam: REGULAR RHYTHM, +S1, +S2 Additional comments: Port intact. No erythema - GI/Abdominal Exam GI & Abdominal Exam: Soft, Normal Bowel Sounds. absent: Distended, Firm, Guarding, Tenderness - Extremities Exam Extremities Exam: Normal Capillary Refill. +2 edema bilateral lower extremities , +3 edema bilateral upper extremities; absent: Calf Tenderness - Back Exam Back Exam: absent: CVA tenderness (L), CVA tenderness (R) - Neurological Exam Neurological Exam: Alert, Awake, Oriented x3 - Psychiatric Exam Psychiatric exam: Normal Affect, Normal Mood - Skin Skin Exam: Dry, Warm Assessment and Plan - Assessment and Plan (Free Text) Assessment: Assessment: Patient is a 66 y/o with PMHx of metastatic pancreatic CA s/p surgery on Gemcitabine/Abraxane (last chemo 04/05/17 with neulesta 04/06), Afib (on dig, not on anticoag), CAD s/p stents, Systolic CHF with LVEF of 25%, NIDDM2, h/o nephrolithiasis whom presented with (1) dyspnea on exertion and (2) generalized swelling. He has recently diagnosed with RUE DVT was on eliqui, got hematuria, then switched to lovenox. On admission, he was found to have b/l pleural effusion and SVC thrombus with collateral formation per CT, restarted lovenox. US doppler negative for DVT. Lasix started for SOB. Pt is POD #2 s/p thoracentesis with IR. Anasarca - supple: prostat and ensure -improved from baseline, monitor closely - lasix changed to 30mg BID Marked Leukocytosis - Likely due to Neulasta vs bilateral pleural effusions from cancer - Sepsis due to gram negative bacilli bacteremia with possible pneumonia from elevated procalc -negative pleural fluid fungal and anareobic cultures pending Acute on Chronic Anemia (+) occult GI bleed - Stool occult positve (04/17) - Consider GI consult for EGD/Colonoscopy - Work up from 04/2016- with anemia of chronic disease . 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 - Thoracentesis completed yesterday- Ultrasound guided right thoracentesis. 2400cc of clear, straw-colored fluid were aspirated. - Recent echo with LVEF of 25%, with hypokinesis of the LV, thus the pleural effusion may also be due to CHF, however since patient has pancreatic cancer, it could be metastasis. - Duoneb prn for SOB. Occlusion of SVC with collateral filling. - Chemo catheter versus malignancy versus malignancy induced hypercoagulable states as possible causes - Will continue with therapeutic dose of lovenox - Head of bed elevation above 30 degrees, supplemental oxygen prn. Epistaxis - resolved Pancreatic cancer, diagnosed 2016 - On chemo - Poor prognosis - Palliative consult for advance directives - He will resume chemotherapy once discharged. Last PET scan in January showed excellent response. Afib - Patient has [id number] score of 4, hasbled score of 2, as per patient - Lovenox therapeutic dose. - Will continue with digoxin 0.25 daily Diabetes Mellitus- - Will continue ISS, fingerstcik achs, and carb controlled diet. Hypokalemia- likely 2nd to diuretics -resolved Bilateral upper and lower extremities edema- multifactorial, SVC occlusion, pleural effusion and decompensated. - U/S of the bilateral upper and lower extremities with no DVT - No signs of cyanosis, radial and dorsalis pedis pulses +2 - No facial swelling/plethora - will continue aggressive diuresis as BP tolerates. - Daily weight and I&Os. CAD - ASA PBH - Will continue flomax DVT prophylaxis - Lovenox GI prophylaxis - Protonix Discharge Planning - Write Rx for ensure, prostate - case managment recommends [facility], does not qualify for TCU stay - PT/OT reval s/r/d/w Dr. Zelaya
--- NOTE | 2017-04-19 13:09 | PN ---
DATE: 04/19/2017. CARDIOLOGY FOLLOWUP The patient's shortness of breath has not changed. Certainly improved since his thoracentesis. On physical exam, blood pressure 114/68, heart rate in the 90s. Neck: Negative JVD. Lungs: Decreased breath sounds without rales. Heart: Reveal S1, S2. Extremities: Without edema. White count is 31,000, hemoglobin is 10.7. BUN and creatinine are unremarkable. IMPRESSION: 1. Status post thoracentesis. 2. Cardiomyopathy. 3. Atrial fibrillation. 4. Resolution of edema. 5. History of PTCA and stent. Given these findings, we will continue medical therapy with diuretics at this time. Terrence Yoder MD
[2017-04-19] MEDS: Digoxin 250 mcg (0.25 mg) Tab PO SCH (14:17)
--- NOTE | 2017-04-19 15:54 | PN ---
DATE: 04/19/2017 SUBJECTIVE: The patient is in bed, in no cute distress, nontoxic. PHYSICAL EXAMINATION: VITAL SIGNS: Temperature is 98, blood pressure is 114/60, respiratory rate of 18. HEENT: Unremarkable. NECK: Supple. LUNGS: Have decreased breath sounds. HEART: Normal S1 and S2. ABDOMEN: Soft and nontender. LABORATORY EXAMINATION: Reveals a white count of 31,000, hemoglobin of 10 and platelets of 441. Chemistries reveals a BUN of 19, creatinine of 0.8, procalcitonin is 0.74. Urinalysis is noted. Microbiology is noted. The patient's blood cultures and Prevotella from initial blood cultures and repeat cultures are negative. REVIEW OF ORDERS: Reveals the patient to be on no antibiotics. ASSESSMENT AND PLAN: A 66-year-old male seen earlier in [facility], bed 2, comfortable with systemic inflammatory response syndrome; leukocytosis most likely secondary to Neulasta, on top of the bilateral pleural effusions due to cancer and initially had sepsis with Prevotella bacteremia, source unclear, status post thoracentesis in a patient with inferior vena cava thrombus and obstructive jaundice with healthcare-associated pneumonia; pancreatic adenocarcinoma; on chemotherapy; coronary artery disease; atrial fibrillation; diabetes; chronic congestive heart failure; hypertension; nephrolithiasis; history of left hand IV site superficial thrombophlebitis, was treated with Zyvox and has completed meropenem 6 days for Prevotella bacteremia, and previous findings of biliary stent and pancreatic mass. Currently on meropenem day #7. For Prevotella bacteremia would complete 10 days of therapy. CAT scan findings reviewed. Jonathan Alvarez MD
[2017-04-19 17:48] LABS: LDH PLEURAL FLUID 72 U/L
[2017-04-19 20:13] VITALS: RESP 20
--- NOTE | 2017-04-19 20:19 | PN ---
DATE: 04/19/2017 SUBJECTIVE: The patient states he feels much better. After the thoracentesis, his breathing is much better. Bilateral upper and lower extremity swelling still persists, but has improved. PHYSICAL EXAMINATION: VITAL SIGNS: Reveal a temperature of 98.5, pulse of 93, respiratory rate of 18, and a blood pressure of 114/68. GENERAL: The patient is an elderly pleasant male, lying in bed, in no acute distress. HEAD AND NECK: Normocephalic, atraumatic. Eyes: Pupils equal, round, and reactive to light and accommodation. Extraocular muscles are intact. There is no pallor. No icterus is noted. NECK: Supple with no adenopathy. No JVD. No thyromegaly. LUNGS: Decreased breath sounds bilaterally. CARDIOVASCULAR: S1 and S2 are heard. ABDOMEN: Positive bowel sounds, soft, nontender, nondistended. No organomegaly is palpated. EXTREMITIES: Bilateral upper and lower extremity edema, which has improved since admission. LABORATORY DATA: White count is 31.1, hemoglobin is 10.7, hematocrit of 32.3, platelet count of 441. Chemistries are within normal limits. ASSESSMENT AND PLAN: Elderly male with metastatic pancreatic cancer, new subclavian clot and now admitted with new pleural effusion status post thoracentesis. Await cytology to see if this is progressive pancreatic cancer or is it secondary to the patient's known cardiomyopathy. We will discuss with cardiology prior to resuming chemotherapy. We will follow up as an outpatient once he is discharged. Thank you for the consult. We will follow with you. Dalia Rey MD
[2017-04-20] MEDS: Meropenem 1g/NS 100mL IVPB 1 GM/100 ML PIGGYBACK IVPB SCH (05:31)
[2017-04-20] MEDS: Pantoprazole 40 mg EC Tab PO SCH ×2 (05:33→17:33)
[2017-04-20] MEDS: Insulin Lispro (humaLOG) MEDIUM Coverage SC SCH ×4 (08:04→22:08)
[2017-04-20 09:19] LABS: BASO # 0.11 K/mm3 (0.0-2.0); BASO % 0.4 % (0.0-3.0); EOS # 0.7 (0.0-0.7); EOS % 2.2 % (1.5-5.0); GRAN # 24.04 (1.4-6.5); GRAN % 79.7 % (50.0-68.0); HEMATOCRIT 33.3 % (42.0-52.0); LYMPH # 2.3 (1.2-3.4); LYMPH % 7.7 % (22.0-35.0); MEAN CELL VOLUME 94.3 fl (80.0-105.0); MEAN CORPUSCULAR HEMOGLOBIN 31.2 pg (25.0-35.0); MEAN PLATELET VOLUME 9.1 fl (7.0-11.0); RED CELL DISTRIBUTION WIDTH 21.6 % (11.5-14.5)
[2017-04-20 09:25] LABS: ALB/GLOB RATIO 1.1 (1.1-1.8); ALKALINE PHOSPHATASE 159 U/L (38-126); ALT/SGPT 32 U/L (7-56); AST/SGOT 19 U/L (17-59); BILIRUBIN,TOTAL 0.3 mg/dL (0.2-1.3); BLOOD UREA NITROGEN 18 mg/dL (7-21); CALCIUM 8.3 mg/dL (8.4-10.5); CARBON DIOXIDE 30 mmol/L (21-33); CHLORIDE 100 mmol/L (98-107); GFR AFRICAN-AMERICAN > 60; GLUCOSE,RANDOM 105 mg/dL (70-110); POTASSIUM 4.3 mmol/L (3.6-5.0); SODIUM 135 mmol/L (132-148); TOTAL PROTEIN 6.1 g/dL (5.8-8.3)
[2017-04-20 09:35] LABS: WHITE BLOOD COUNT 30.1 10^3/ul (4.5-11.0)
[2017-04-20] MEDS: Enoxaparin 80 mg Syringe SC SCH ×2 (10:26→21:53)
--- NOTE | 2017-04-20 11:38 | CP.PCM.PN ---
<Kevin Moore - Last Filed: 04/20/17 11:43> Subjective - Date & Time of Evaluation Date of Evaluation: 04/20/17 Time of Evaluation: 11:00 - Subjective Subjective: Patient seen and examined at bedside. No acute events overnight. States that he was able to tolerate ambulating and climbing stairs without significant SOB. Denies fever, chills, chest pain, SOB, abdominal pain, N/V. Objective - Vital Signs/Intake and Output Vital Signs (last 24 hours): Temp Pulse Resp BP Pulse Ox 97.6 F 87 20 105/50 L 98 04/20/17 08:26 04/20/17 08:26 04/20/17 08:26 04/20/17 10:25 04/20/17 08:26 Intake and Output: 04/20/17 04/20/17 06:59 18:59 Intake Total 300 320 Output Total 200 Balance 100 320 - Medications Medications: Current Medications Albuterol/Ipratropium (Duoneb 3 Mg/0.5 Mg (3 Ml) Ud) 3 ml IH Q2H PRN PRN Reason: Shortness of Breath Aspirin (Aspirin Chewable) 81 mg PO DAILY [facility] Last Admin: 04/20/17 10:24 Dose: 81 mg Calcium Carbonate (Oscal) 500 mg PO DAILY [facility] Last Admin: 04/20/17 10:26 Dose: 500 mg Digoxin (Lanoxin) 0.25 mg PO 1400 [facility] Last Admin: 04/19/17 14:17 Dose: 0.25 mg Enoxaparin Sodium (Lovenox) 80 mg SC Q12 [facility] PRN Reason: Protocol Last Admin: 04/20/17 10:26 Dose: 80 mg Furosemide (Lasix) 40 mg IVP Q12 [facility] Last Admin: 04/20/17 10:25 Dose: Not Given Insulin Human Lispro (Humalog Med) 0 units SC ACHS [facility] PRN Reason: Protocol Last Admin: 04/20/17 08:04 Dose: Not Given Pantoprazole Sodium (Protonix Ec Tab) 40 mg PO 0600,1600 [facility] Last Admin: 04/20/17 05:33 Dose: 40 mg Tamsulosin HCl (Flomax) 0.4 mg PO DAILY [facility] Last Admin: 04/20/17 10:25 Dose: 0.4 mg - Labs Labs: 04/20/17 09:10 04/20/17 09:10 PT 11.7 Seconds (9.9-11.8) 04/15/17 06:40 INR 1.08 (0.93-1.08) 04/15/17 06:40 APTT 32.4 Seconds (23.7-30.8) H 04/14/17 12:42 - Additional Findings Additional findings: - Constitutional Appears: No Acute Distress - Head Exam Head Exam: ATRAUMATIC, NORMAL INSPECTION, NORMOCEPHALIC - Eye Exam Eye Exam: EOMI, Normal appearance, PERRL. absent: Scleral icterus Pupil Exam: NORMAL ACCOMODATION - ENT Exam ENT Exam: Mucous Membranes Moist - Neck Exam Additional comments: supple - Respiratory Exam Respiratory Exam: Clear to Ausculation Bilateral. absent: Rales, Rhonchi, Wheezes - Cardiovascular Exam Cardiovascular Exam: REGULAR RHYTHM, +S1, +S2 Additional comments: Port intact. No erythema - GI/Abdominal Exam GI & Abdominal Exam: Soft, Normal Bowel Sounds. absent: Distended, Firm, Guarding, Tenderness - Extremities Exam Extremities Exam: Normal Capillary Refill. +2 Edema bilateral LE- improved from baseline, upper extremity bilateral swelling has decreased absent: Calf Tenderness, Pedal Edema - Back Exam Back Exam: absent: CVA tenderness (L), CVA tenderness (R) - Neurological Exam Neurological Exam: Alert, Awake, Oriented x3 - Psychiatric Exam Psychiatric exam: Normal Affect, Normal Mood - Skin Skin Exam: Dry, Warm Assessment and Plan - Assessment and Plan (Free Text) Assessment: Patient is a 66 y/o with PMHx of metastatic pancreatic CA s/p surgery on Gemcitabine/Abraxane (last chemo 04/05/17 with neulesta 04/06), Afib (on dig, not on anticoag), CAD s/p stents, Systolic CHF with LVEF of 25%, NIDDM2, h/o nephrolithiasis whom presented with (1) dyspnea on exertion and (2) generalized swelling. He has recently diagnosed with RUE DVT was on eliqui, got hematuria, then switched to lovenox. On admission, he was found to have b/l pleural effusion and SVC thrombus with collateral formation per CT, restarted lovenox. US doppler negative for DVT. Lasix started for SOB. Pt is POD #3 s/p thoracentesis with IR. Anasarca - supple: prostat and ensure - improved from baseline, monitor closely - lasix changed to 60mg PO BID Marked Leukocytosis - Likely due to Neulasta vs bilateral pleural effusions from cancer - Sepsis due to gram negative bacilli bacteremia with possible pneumonia from elevated procalc - negative pleural fluid fungal and anareobic cultures pending Acute on Chronic Anemia (+) occult GI bleed - Stool occult positve (04/17) - Work up from 04/2016- with anemia of chronic disease . 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 - Thoracentesis completed- Ultrasound guided right thoracentesis. 2400cc of clear, straw-colored fluid were aspirated - Recent echo with LVEF of 25%, with hypokinesis of the LV, thus the pleural effusion may also be due to CHF, however since patient has pancreatic cancer, it could be metastasis. - Duoneb prn for SOB. Occlusion of SVC with collateral filling. - Chemo catheter versus malignancy versus malignancy induced hypercoagulable states as possible causes - Will continue with therapeutic dose of lovenox - Head of bed elevation above 30 degrees, supplemental oxygen prn. Epistaxis - resolved Pancreatic cancer, diagnosed 2016 - On chemo - Poor prognosis - Palliative consult for advance directives - He will resume chemotherapy once discharged. Last PET scan in January showed excellent response. Afib - Patient has [id number] score of 4, hasbled score of 2, as per patient - Lovenox therapeutic dose. - Will continue with digoxin 0.25 daily Diabetes Mellitus- - Will continue ISS, fingerstcik achs, and carb controlled diet. Hypokalemia- likely 2nd to diuretics -resolved Bilateral upper and lower extremities edema- multifactorial, SVC occlusion, pleural effusion and decompensated. - U/S of the bilateral upper and lower extremities with no DVT - No signs of cyanosis, radial and dorsalis pedis pulses +2 - No facial swelling/plethora - will continue aggressive diuresis as BP tolerates. - Daily weight and I&Os. CAD - ASA PBH - Will continue flomax DVT prophylaxis - Lovenox GI prophylaxis - Protonix Discharge Planning - Write Rx for ensure, prostate - case managment recommends [facility], does not qualify for TCU stay - PT/OT reval s/r/d/w Dr. Zelaya <Scar Low - Last Filed: 05/18/17 17:25> Objective - Vital Signs/Intake and Output Vital Signs (last 24 hours): Temp Pulse Resp BP Pulse Ox 98.1 F 89 20 108/74 97 04/22/17 17:17 04/22/17 17:17 04/22/17 17:17 04/22/17 17:17 04/22/17 17:17 - Labs Labs: 04/22/17 05:45 04/22/17 05:45 PT 11.7 Seconds (9.9-11.8) 04/15/17 06:40 INR 1.08 (0.93-1.08) 04/15/17 06:40 APTT 32.4 Seconds (23.7-30.8) H 04/14/17 12:42 Attending/Attestation - Attestation I have personally seen and examined this patient.: Yes I have fully participated in the care of the patient.: Yes I have reviewed all pertinent clinical information, including history, physical exam and plan: Yes Notes (Text): 05/18/17 17:25 Medical record note made by the resident after discussion with my direction and input after the patient was personally seen and examined by me. I have reviewed the chart and agree that the record accurately reflects by personal performance of the history, physical exam, data review, and medical decision-making, in the course for the patient. I have also personally directed the plan of care.
--- NOTE | 2017-04-20 12:17 | PN ---
SUBJECTIVE: The patient is in bed, in no acute distress, nontoxic. PHYSICAL EXAMINATION VITAL SIGNS: Temperature is 98, blood pressure is 105/50, respiratory rate of 20, heart rate of 87. HEENT: Unremarkable. NECK: Supple. HEART: Normal S1, S2. LUNGS: Decreased breath sounds. ABDOMEN: Soft, nontender. LABORATORY EXAMINATION: Reveals a white count of 31,000. Chemistries are noted. Urinalysis is noted. Pleural fluid is noted. MEDICATIONS: Review of medications reveals the patient to be on meropenem. ASSESSMENT AND PLAN: This is a 66-year-old male, seen earlier this morning, comfortable with systemic inflammatory response syndrome; leukocytosis, most likely secondary to Neulasta; bilateral pleural effusions due to cancer initially with sepsis with Prevotella bacteremia, source unclear, and the patient with inferior vena cava thrombus and obstructive jaundice; healthcare-associated pneumonia; pancreatic cancer, on chemotherapy; coronary artery disease; atrial fibrillation; diabetic; chronic congestive heart failure; hypertension; nephrolithiasis and left hand IV site thrombophlebitis. Currently on meropenem, day #8 for Prevotella bacteremia. Jonathan Alvarez MD
[2017-04-20] MEDS: Digoxin 250 mcg (0.25 mg) Tab PO SCH (14:53)
--- NOTE | 2017-04-20 18:14 | PN ---
DATE: 04/20/2017 CARDIOLOGY FOLLOWUP SUBJECTIVE: The patient denies shortness of breath. He wants to go home. PHYSICAL EXAMINATION: VITAL SIGNS: Blood pressure is 105/50, the heart rate in the 80s. NECK: Negative JVD. LUNGS: Without rales. HEART: Reveals S1 and S2. EXTREMITIES: Without edema. LABORATORY DATA: Hemoglobin is 11, white count is 30,000, glucose is 105. IMPRESSION: 1. Congestive heart failure which is now resolved. 2. Stable angina. 3. Coronary artery disease. 4. Atrial fibrillation. 5. Cardiomyopathy. PLAN: Given these findings, the patient is free of shortness of breath. His breathing is much improved. We will need to consider long-term anticoagulation. Terrence Yoder MD
[2017-04-21] MEDS: Pantoprazole 40 mg EC Tab PO SCH ×2 (05:46→18:29)
[2017-04-21 07:19] LABS: ALKALINE PHOSPHATASE 144 U/L (38-126); ALT/SGPT 30 U/L (7-56); AST/SGOT 41 U/L (17-59); BILIRUBIN,TOTAL 0.2 mg/dL (0.2-1.3); BLOOD UREA NITROGEN 20 mg/dL (7-21); CALCIUM 8.2 mg/dL (8.4-10.5); CARBON DIOXIDE 32 mmol/L (21-33); CHLORIDE 98 mmol/L (98-107); GFR AFRICAN-AMERICAN > 60; GLUCOSE,RANDOM 87 mg/dL (70-110); POTASSIUM 4.3 mmol/L (3.6-5.0); SODIUM 137 mmol/L (132-148); TOTAL PROTEIN 5.7 g/dL (5.8-8.3)
[2017-04-21 07:24] LABS: BASO # 0.09 K/mm3 (0.0-2.0); BASO % 0.4 % (0.0-3.0); EOS # 0.7 (0.0-0.7); EOS % 2.7 % (1.5-5.0); GRAN # 19.04 (1.4-6.5); GRAN % 76.9 % (50.0-68.0); HEMATOCRIT 31.4 % (42.0-52.0); LYMPH # 2.1 (1.2-3.4); LYMPH % 8.6 % (22.0-35.0); MEAN CELL VOLUME 94.6 fl (80.0-105.0); MEAN CORPUSCULAR HGB CONC 32.8 g/dl (31.0-37.0); MEAN PLATELET VOLUME 9.6 fl (7.0-11.0); MONO # 2.8 (0.1-0.6); MONO % 11.4 % (1.0-6.0); RED CELL DISTRIBUTION WIDTH 21.4 % (11.5-14.5); WHITE BLOOD COUNT 24.8 10^3/ul (4.5-11.0)
[2017-04-21] MEDS: Insulin Lispro (humaLOG) MEDIUM Coverage SC SCH ×4 (08:37→22:16)
--- NOTE | 2017-04-21 09:54 | CP.PCM.PN ---
<Nancy Johnson - Last Filed: 04/21/17 13:22> Subjective - Date & Time of Evaluation Date of Evaluation: 04/21/17 Time of Evaluation: 09:52 - Subjective Subjective: PGY-2 Progress note Patient seen and examined at bedside. No acute distress. Nurse reports no acute events overnight. Patient states he feels better, his SOB has improved, swelling has decreased. patient report pink, blood tinged urine, denies dysuria. He denies chest pain, abd pain, n/v/d/c, fever, chills. Objective - Vital Signs/Intake and Output Vital Signs (last 24 hours): Temp Pulse Resp BP Pulse Ox 98.2 F 82 20 110/64 97 04/20/17 16:00 04/20/17 16:00 04/20/17 16:00 04/20/17 17:32 04/20/17 16:00 Intake and Output: 04/21/17 04/21/17 06:59 18:59 Intake Total 1480 Balance 1480 - Medications Medications: Current Medications Albuterol/Ipratropium (Duoneb 3 Mg/0.5 Mg (3 Ml) Ud) 3 ml IH Q2H PRN PRN Reason: Shortness of Breath Aspirin (Aspirin Chewable) 81 mg PO DAILY [facility] Last Admin: 04/20/17 10:24 Dose: 81 mg Calcium Carbonate (Oscal) 500 mg PO DAILY [facility] Last Admin: 04/20/17 10:26 Dose: 500 mg Digoxin (Lanoxin) 0.25 mg PO 1400 [facility] Last Admin: 04/20/17 14:53 Dose: 0.25 mg Enoxaparin Sodium (Lovenox) 80 mg SC Q12 [facility] PRN Reason: Protocol Last Admin: 04/20/17 21:53 Dose: 80 mg Furosemide (Lasix) 60 mg PO BID [facility] Last Admin: 04/20/17 17:32 Dose: 60 mg Insulin Human Lispro (Humalog Med) 0 units SC ACHS [facility] PRN Reason: Protocol Last Admin: 04/21/17 08:37 Dose: Not Given Pantoprazole Sodium (Protonix Ec Tab) 40 mg PO 0600,1600 [facility] Last Admin: 04/21/17 05:46 Dose: 40 mg Tamsulosin HCl (Flomax) 0.4 mg PO DAILY [facility] Last Admin: 04/20/17 10:25 Dose: 0.4 mg - Labs Labs: 04/21/17 06:55 04/21/17 06:55 PT 11.7 Seconds (9.9-11.8) 04/15/17 06:40 INR 1.08 (0.93-1.08) 04/15/17 06:40 APTT 32.4 Seconds (23.7-30.8) H 04/14/17 12:42 - Constitutional Appears: Well, No Acute Distress - Head Exam Head Exam: ATRAUMATIC, NORMAL INSPECTION, NORMOCEPHALIC - Eye Exam Eye Exam: EOMI, Normal appearance - ENT Exam ENT Exam: Mucous Membranes Moist - Respiratory Exam Respiratory Exam: Clear to Ausculation Bilateral, NORMAL BREATHING PATTERN. absent: Rales, Rhonchi, Wheezes, Respiratory Distress - Cardiovascular Exam Cardiovascular Exam: REGULAR RHYTHM, +S1, +S2. absent: Tachycardia, Murmur - GI/Abdominal Exam GI & Abdominal Exam: Soft, Normal Bowel Sounds. absent: Distended, Firm, Guarding, Tenderness - Extremities Exam Additional comments: +2 pitting edema bilateral LE and UE, improved from baseline - Neurological Exam Neurological Exam: Alert, Awake, Oriented x3 - Skin Skin Exam: Dry, Intact, Normal Color, Warm Assessment and Plan - Assessment and Plan (Free Text) Assessment: 66 y/o with PMHx of metastatic pancreatic CA s/p surgery on Gemcitabine/ Abraxane (last chemo 04/05/17 with neulesta 04/06), Afib (on dig, not on anticoag) , CAD s/p stents, Systolic CHF with LVEF of 25%, NIDDM2, h/o nephrolithiasis whom presented with dyspnea on exertion and generalized swelling. Patient was recently diagnosed with RUE DVT was on eliquis, however developed hematuria, and was switched to lovenox. On admission, he was found to have b/l pleural effusion and SVC thrombus with collateral formation per CT, restarted lovenox. US doppler negative for DVT. Patient is on lasix for SOB. Pt is POD #4 s/p thoracentesis with IR. Plan: 1. Anasarca - dietary supplements: prostat and ensure - improved from baseline, monitor closely - lasix changed from IV to PO yesterday, cont 60mg PO BID 2. Marked Leukocytosis - downtrending - Likely due to Neulasta vs bilateral pleural effusions from cancer - Sepsis due to gram negative bacilli bacteremia with possible pneumonia from elevated procalc - negative pleural fluid fungal and anareobic cultures negative 3. Acute on Chronic Anemia - postive occult GI bleed - Stool occult positve (04/17) - Work up from 04/2016- with anemia of chronic disease . - h/h stable, will monitor 4. 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 Decompensated CHF (Acute on chronic systolic) due to Dilated cardiomyopathy EF 25% with Hx PTCA and stents Occlusive disease of SVC - B/L pleural effusion +/- HAP - Lasix IV changes to PO 60 mg bid. - Thoracentesis completed- Ultrasound guided right thoracentesis. 2400cc of clear, straw-colored fluid were aspirated - Recent echo with LVEF of 25%, with hypokinesis of the LV, thus the pleural effusion may also be due to CHF, however since patient has pancreatic cancer, it could be metastasis. - Duoneb prn for SOB. - cardio following 6. Occlusion of SVC with collateral filling. - Chemo catheter versus malignancy versus malignancy induced hypercoagulable states as possible causes - Will continue with therapeutic dose of lovenox - Head of bed elevation above 30 degrees, supplemental oxygen prn. 7.Epistaxis - resolved 8. hematuria - patient has h/o hematuria is past 2/2 eliquis - repeat UA - h&h stable - urology consult 9. Pancreatic cancer, diagnosed 2017 - On chemo - Poor prognosis - Palliative consult for advance directives - He will resume chemotherapy once discharged. Last PET scan in January showed excellent response. 10. Afib - Patient has [id number] score of 4, hasbled score of 2, as per patient - Lovenox therapeutic dose. - Will continue with digoxin 0.25 daily 11. Diabetes Mellitus - Will continue ISS, fingerstcik achs, and carb controlled diet. 12. Hypokalemia- likely 2nd to diuretics -resolved 13. Bilateral upper and lower extremities edema - multifactorial, SVC occlusion, pleural effusion and decompensated. - U/S of the bilateral upper and lower extremities with no DVT - No signs of cyanosis, radial and dorsalis pedis pulses +2 - No facial swelling/plethora - will continue aggressive diuresis as BP tolerates. - Daily weight and I&Os. 14. CAD - ASA 15. BPH - Will continue flomax DVT prophylaxis - Lovenox GI prophylaxis - Protonix Discharge Planning - will send home with Rx for ensure, prostate <[email or web address] S - Last Filed: 04/21/17 13:50> Objective - Vital Signs/Intake and Output Vital Signs (last 24 hours): Temp Pulse Resp BP Pulse Ox 98.0 F 75 20 118/68 97 04/21/17 06:00 04/21/17 06:00 04/21/17 06:00 04/21/17 11:40 04/21/17 06:00 Intake and Output: 04/21/17 04/21/17 06:59 18:59 Intake Total 1480 Balance 1480 - Medications Medications: Current Medications Albuterol/Ipratropium (Duoneb 3 Mg/0.5 Mg (3 Ml) Ud) 3 ml IH Q2H PRN PRN Reason: Shortness of Breath Aspirin (Aspirin Chewable) 81 mg PO DAILY [facility] Last Admin: 04/21/17 11:41 Dose: 81 mg Calcium Carbonate (Oscal) 500 mg PO DAILY [facility] Last Admin: 04/21/17 11:41 Dose: 500 mg Digoxin (Lanoxin) 0.25 mg PO 1400 [facility] Last Admin: 04/20/17 14:53 Dose: 0.25 mg Enoxaparin Sodium (Lovenox) 80 mg SC Q12 [facility] PRN Reason: Protocol Last Admin: 04/21/17 11:41 Dose: 80 mg Furosemide (Lasix) 60 mg PO BID [facility] Last Admin: 04/21/17 11:40 Dose: 60 mg Meropenem 1g/NS 100mL IVPB (Meropenem 1g/Ns 100ml Ivpb) 1 gm in 100 mls @ 100 mls/hr IVPB Q8 [facility] PRN Reason: Protocol Stop: 04/30/17 10:47 Last Admin: 04/21/17 11:44 Dose: 100 mls/hr Insulin Human Lispro (Humalog Med) 0 units SC ACHS [facility] PRN Reason: Protocol Last Admin: 04/21/17 11:43 Dose: Not Given Pantoprazole Sodium (Protonix Ec Tab) 40 mg PO 0600,1600 [facility] Last Admin: 04/21/17 05:46 Dose: 40 mg Tamsulosin HCl (Flomax) 0.4 mg PO DAILY [facility] Last Admin: 04/21/17 11:41 Dose: 0.4 mg - Labs Labs: 04/21/17 06:55 04/21/17 06:55 PT 11.7 Seconds (9.9-11.8) 04/15/17 06:40 INR 1.08 (0.93-1.08) 04/15/17 06:40 APTT 32.4 Seconds (23.7-30.8) H 04/14/17 12:42 Assessment and Plan - Assessment and Plan (Free Text) Plan: went over labs meds orders and discussed w/ resident w/ length to go home today and follow up w/ pmd
[2017-04-21] MEDS: Enoxaparin 80 mg Syringe SC SCH ×2 (11:41→22:16)
[2017-04-21] MEDS: Meropenem 1g/NS 100mL IVPB 1 GM/100 ML PIGGYBACK IVPB SCH ×3 (11:44→22:16)
[2017-04-21] MEDS: Digoxin 250 mcg (0.25 mg) Tab PO SCH (15:06)
--- NOTE | 2017-04-21 16:00 | PN ---
DATE: 04/21/2017 SUBJECTIVE: The patient seen earlier today in #[id number], bed 2. No fever and chills. No nausea. PHYSICAL EXAMINATION: VITAL SIGNS: Temperature is 98, blood pressure is 111/60 and respiratory rate of 16. HEENT: Examination of the HEENT is unremarkable. NECK: Supple. LUNGS: Decreased breath sounds. HEART: Normal S1 and S2. ABDOMEN: Soft and nontender. LABORATORY EXAMINATION: Reveals the patient's white count is 24,000, hemoglobin of 10, and platelets of 567. Coagulation is noted. Chemistries reveals a BUN of 20, and creatinine of 0.8. Urinalysis is noted. Microbiology reveals that the patient to have pleural fluid. Cultures are no growth. The repeat blood cultures are no growth and progress note from today is reviewed. The patient had a chest x-ray done today, results are pending and review of orders reveals the patient is off of antibiotics. ASSESSMENT AND PLAN: A 66-year-old male with systemic inflammatory response syndrome, leukocytosis mostly likely secondary to the Neulasta, bilateral pleural effusions and initially had Prevotella bacteremia, source is unclear in a patient with inferior vena cava thrombus and obstructive jaundice, healthcare associated pneumonia, pancreatic cancer on chemotherapy, coronary artery disease, atrial fibrillation, diabetic with chronic congestive heart failure, hypertension, nephrolithiasis, and left IV site thrombophlebitis, on day #9 of meropenem. Review of the medications revealed the pharmacy had discontinued the meropenem, and we will restart the meropenem to complete at least 10 days. Jonathan Alvarez MD
--- NOTE | 2017-04-21 17:38 | RAD ---
HISTORY: HAP COMPARISON: Comparison chest 04/18/2017 TECHNIQUE: Chest PA and lateral FINDINGS: No change right IJ MediPort with tip in the SVC LUNGS: Interval improvement bibasilar atelectasis and or infiltrate changes right side of which was greater than the left. Small right-sided effusion remains though this has improved from prior study. Suspect tiny left effusion. PLEURA: No significant pleural effusion identified. No pneumothorax apparent. CARDIOVASCULAR: Normal. OSSEOUS STRUCTURES: No significant abnormalities. VISUALIZED UPPER ABDOMEN: Normal. OTHER FINDINGS: None. IMPRESSION: Interval improvement bibasilar atelectasis and or infiltrate changes right side of which was greater than the left. Small right-sided effusion remains though this has improved from prior study. Suspect tiny left effusion.
[2017-04-22] MEDS: Meropenem 1g/NS 100mL IVPB 1 GM/100 ML PIGGYBACK IVPB SCH ×2 (05:31→14:41)
[2017-04-22] MEDS: Pantoprazole 40 mg EC Tab PO SCH (05:31)
[2017-04-22 06:22] LABS: ALKALINE PHOSPHATASE 140 U/L (38-126); ALT/SGPT 28 U/L (7-56); AST/SGOT 28 U/L (17-59); BILIRUBIN,TOTAL 0.4 mg/dL (0.2-1.3); BLOOD UREA NITROGEN 19 mg/dL (7-21); CALCIUM 8.4 mg/dL (8.4-10.5); CARBON DIOXIDE 33 mmol/L (21-33); CHLORIDE 95 mmol/L (95-110); GFR AFRICAN-AMERICAN > 60; GLUCOSE,RANDOM 95 mg/dL (70-110); POTASSIUM 4.3 mmol/L (3.6-5.0); SODIUM 135 mmol/L (132-148)
[2017-04-22 06:29] LABS: BASO # 0.12 K/mm3 (0.0-2.0); BASO % 0.5 % (0.0-3.0); EOS # 0.7 (0.0-0.7); GRAN # 17.35 (1.4-6.5); GRAN % 74.3 % (50.0-68.0); HEMATOCRIT 32.2 % (42.0-52.0); LYMPH # 2.3 (1.2-3.4); LYMPH % 9.8 % (22.0-35.0); MEAN CELL VOLUME 94.2 fl (80.0-105.0); MEAN CORPUSCULAR HGB CONC 32.9 g/dl (31.0-37.0); MEAN PLATELET VOLUME 9.4 fl (7.0-11.0); MONO # 2.9 (0.1-0.6); MONO % 12.4 % (1.0-6.0); RED CELL DISTRIBUTION WIDTH 21.1 % (11.5-14.5); WHITE BLOOD COUNT 23.3 10^3/ul (4.5-11.0)
[2017-04-22 06:36] LABS: ALB/GLOB RATIO 0.9 (1.1-1.8); TOTAL PROTEIN 6.2 g/dL (5.8-8.3)
[2017-04-22] MEDS: Insulin Lispro (humaLOG) MEDIUM Coverage SC SCH ×2 (07:56→12:38)
[2017-04-22 09:18] LABS: URINE BILIRUBIN NEGATIVE (NEGATIVE); URINE BLOOD LARGE (NEGATIVE); URINE GLUCOSE (UA) NEGATIVE (NEGATIVE); URINE KETONE NEGATIVE (NEGATIVE); URINE LEUKOCYTE ESTERASE SMALL Leu/uL (NEGATIVE); URINE PROTEIN TRACE mg/dL (<30 mg/dL); URINE UROBILINOGEN 0.2 E.U./dL (<1 E.U./dL)
[2017-04-22 09:21] LABS: URINE APPEARANCE CLOUDY (CLEAR); URINE COLOR DARK YELLOW (YELLOW)
[2017-04-22 09:52] LABS: URINE RBC TNTC /hpf (0-2)
[2017-04-22] MEDS: Enoxaparin 80 mg Syringe SC SCH (10:10)
--- NOTE | 2017-04-22 14:30 | PN ---
DATE: 04/22/2017 SUBJECTIVE: The patient seen earlier this morning. No fevers and no chills. PHYSICAL EXAMINATION VITAL SIGNS: Temperature is 98, blood pressure is 112/50, and respiratory rate 16. HEENT: Unremarkable. NECK: Supple. LUNGS: Decreased breath sounds. HEART: Normal S1 and S2. ABDOMEN: Soft and nontender. LABORATORY DATA: Reveals a white count is down to 23,000, hemoglobin of 10, platelets of 670. BUN of 19, creatinine of 0.8. Microbiology reveals Prevotella melaninogenica. ASSESSMENT AND PLAN: This is a 66-year-old male with systemic inflammatory response syndrome, leukocytosis most likely secondary to Neulasta, bilateral pleural effusion was initially with Prevotella bacteremia source unclear, and inferior vena cava thrombus and obstructive jaundice, healthcare associated pneumonia, pancreatic cancer and chemotherapy, coronary artery disease, diabetic congestive heart failure, hypertension, nephrolithiasis and today's day #10 of meropenem. Case discussed with nursing staff. Jonathan Alvarez MD
[2017-04-22 14:41] VITALS: PULSE 72
[2017-04-22] MEDS: Digoxin 250 mcg (0.25 mg) Tab PO SCH (14:41)
--- NOTE | 2017-04-22 16:43 | CP.PCM.DIS ---
<Nancy Johnson - Last Filed: 04/23/17 07:21> Provider - Provider Date of Admission: 04/12/17 22:16 Attending physician: Pop Zelaya MD Primary care physician: Pop Zelaya MD Time Spent in preparation of Discharge (in minutes): 60 Hospital Course - Lab Results Lab Results: Micro Results 04/17/17 11:39 Pleural Fluid Gram Stain - Final 04/17/17 11:39 Pleural Fluid Anaerobic Culture - Final NO ANAEROBES ISOLATED. 04/17/17 11:39 Pleural Fluid Body Fluid Culture - Final No growth. 04/15/17 17:00 Blood-Venous Blood Culture - Final NO GROWTH AFTER 5 DAYS 04/15/17 17:00 Blood-Venous Gram Stain - Final TEST NOT PERFORMED 04/15/17 16:00 Blood-Venous Blood Culture - Final NO GROWTH AFTER 5 DAYS 04/15/17 16:00 Blood-Venous Gram Stain - Final TEST NOT PERFORMED 04/17/17 11:39 Other: Please Indicate Mycobacterial Culture - Preliminary 04/17/17 11:39 Pleural Fluid Fungal Culture - Preliminary 04/12/17 23:25 Urine,Clean Catch Urine Culture - Final No Growth (<1,000 CFU/ML) Most Recent Lab Values WBC 23.3 10^3/ul (4.5-11.0) H 04/22/17 05:45 RBC 3.42 10^6/uL (3.5-6.1) L 04/22/17 05:45 Hgb 10.6 g/dL (14.0-18.0) L 04/22/17 05:45 Hct 32.2 % (42.0-52.0) L 04/22/17 05:45 MCV 94.2 fl (80.0-105.0) 04/22/17 05:45 MCH 31.0 pg (25.0-35.0) 04/22/17 05:45 MCHC 32.9 g/dl (31.0-37.0) 04/22/17 05:45 RDW 21.1 % (11.5-14.5) H 04/22/17 05:45 Plt Count 670 10^3/uL (120.0-450.0) H 04/22/17 05:45 MPV 9.4 fl (7.0-11.0) 04/22/17 05:45 Gran % 74.3 % (50.0-68.0) H 04/22/17 05:45 Lymph % (Auto) 9.8 % (22.0-35.0) L 04/22/17 05:45 Irion % (Auto) 12.4 % (1.0-6.0) H 04/22/17 05:45 Eos % (Auto) 3.0 % (1.5-5.0) 04/22/17 05:45 Baso % (Auto) 0.5 % (0.0-3.0) 04/22/17 05:45 Gran # 17.35 (1.4-6.5) H 04/22/17 05:45 Lymph # 2.3 (1.2-3.4) 04/22/17 05:45 Irion # 2.9 (0.1-0.6) H 04/22/17 05:45 Eos # 0.7 (0.0-0.7) 04/22/17 05:45 Baso # 0.12 K/mm3 (0.0-2.0) 04/22/17 05:45 Neutrophils % (Manual) 82 % (50.0-70.0) H 04/12/17 16:50 Band Neutrophils % 9 % (0-2) H 04/12/17 16:50 Lymphocytes % (Manual) 3 % (22.0-35.0) L 04/12/17 16:50 Monocytes % (Manual) 3 % (1.0-6.0) 04/12/17 16:50 Eosinophils % (Manual) 3 % (0.0-3.0) 04/12/17 16:50 Platelet Evaluation Normal (NORMAL) 04/12/17 16:50 PT 11.7 Seconds (9.9-11.8) 04/15/17 06:40 INR 1.08 (0.93-1.08) 04/15/17 06:40 APTT 32.4 Seconds (23.7-30.8) H 04/14/17 12:42 pO2 50 mm/Hg (30-55) 04/12/17 20:05 VBG pH 7.41 (7.32-7.43) 04/12/17 20:05 VBG pCO2 50.0 (40-60) 04/12/17 20:05 VBG HCO3 31.7 mmol/l (21-28) H 04/12/17 20:05 VBG Total CO2 33.2 mmol.L (22-28) H 04/12/17 20:05 VBG O2 Sat (Calc) 88.1 % (40-65) H 04/12/17 20:05 VBG Base Excess 5.8 mmol/L (0.0-2.0) H 04/12/17 20:05 VBG Potassium 3.0 mmol/L (3.6-5.2) L 04/12/17 20:05 Sodium 139.0 mmol/L (132-148) 04/12/17 20:05 Chloride 103.0 mmol/L (98-107) 04/12/17 20:05 Glucose 102 mg/dl (75-110) 04/12/17 20:05 Lactate 1.4 mmol/L (0.7-2.1) 04/12/17 20:05 FiO2 21.0 % 04/12/17 20:05 Sodium 135 mmol/L (132-148) 04/22/17 05:45 Potassium 4.3 mmol/L (3.6-5.0) 04/22/17 05:45 Chloride 95 mmol/L (95-110) 04/22/17 05:45 Carbon Dioxide 33 mmol/L (21-33) 04/22/17 05:45 Anion Gap 11 (10-20) 04/22/17 05:45 BUN 19 mg/dL (7-21) 04/22/17 05:45 Creatinine 0.8 mg/dL (0.5-1.4) 04/22/17 05:45 Est GFR ( Amer) > 60 04/22/17 05:45 Est GFR (Non-Af Amer) > 60 04/22/17 05:45 POC Glucose (mg/dL) 129 mg/dL (65-110) H 04/22/17 11:45 Random Glucose 95 mg/dL (70-110) 04/22/17 05:45 Hemoglobin A1c 7.5 % (4.2-6.5) H D 04/13/17 05:00 Calcium 8.4 mg/dL (8.4-10.5) 04/22/17 05:45 Magnesium 1.7 mg/dL (1.7-2.2) 04/13/17 05:30 Total Bilirubin 0.4 mg/dL (0.2-1.3) 04/22/17 05:45 AST 28 U/L (17-59) 04/22/17 05:45 ALT 28 U/L (7-56) 04/22/17 05:45 Alkaline Phosphatase 140 U/L (38-126) H 04/22/17 05:45 Lactate Dehydrogenase 491 U/L (333-699) 04/20/17 09:34 Total Creatine Kinase 23 U/L (35-230) L 04/12/17 16:50 Troponin I < 0.01 ng/mL 04/12/17 16:50 NT-Pro-B Natriuret Pep 5160 pg/mL (0-450) H 04/13/17 05:30 Total Protein 6.2 g/dL (5.8-8.3) 04/22/17 05:45 Albumin 3.0 g/dL (3.0-4.8) 04/22/17 05:45 Globulin 3.2 gm/dL 04/22/17 05:45 Albumin/Globulin Ratio 0.9 (1.1-1.8) L 04/22/17 05:45 Procalcitonin 0.74 NG/ML (0.19-0.49) H 04/14/17 10:30 Venous Blood Potassium 3.0 mmol/L (3.6-5.2) L 04/12/17 20:05 Urine Color Dark yellow (YELLOW) 04/22/17 09:00 Urine Appearance Cloudy (CLEAR) 04/22/17 09:00 Urine pH 7.0 (4.7-8.0) 04/22/17 09:00 Ur Specific Stanton 1.010 (1.005-1.035) 04/22/17 09:00 Urine Protein Trace mg/dL (<30 mg/dL) H 04/22/17 09:00 Urine Glucose (UA) Negative mg/dL (NEGATIVE) 04/22/17 09:00 Urine Ketones Negative mg/dL (NEGATIVE) 04/22/17 09:00 Urine Blood Large (NEGATIVE) H 04/22/17 09:00 Urine Nitrate Negative (NEGATIVE) 04/22/17 09:00 Urine Bilirubin Negative (NEGATIVE) 04/22/17 09:00 Urine Urobilinogen 0.2 E.U./dL (<1 E.U./dL) 04/22/17 09:00 Ur Leukocyte Esterase Small Valdo/uL (NEGATIVE) H 04/22/17 09:00 Urine RBC Tntc /hpf (0-2) 04/22/17 09:00 Urine WBC 2 - 5 /hpf (0-6) 04/22/17 09:00 Ur Epithelial Cells 1 - 3 /hpf (0-5) 04/22/17 09:00 Fluid Source Pleural 04/17/17 11:39 Fluid Appearance Clear (CLEAR) 04/17/17 11:39 Fluid WBC 419.0 /uL (0.0-300.0) H 04/17/17 11:39 Fluid RBC 401.5 /uL (0.0-0.0) H 04/17/17 11:39 Fluid Tot Cell Count 100 (0-0) H 04/17/17 11:39 Fluid Neutrophils 27.0 % (0-0) H 04/17/17 11:39 Fluid Lymphocytes 73.0 % (0-0) H 04/17/17 11:39 Fld Monocyte/Macrophag TEST NOT PERFORMED 04/17/17 11:39 Fluid Comment Yellow color 04/17/17 11:39 Pleural pH 7.0 04/17/17 11:39 Pleural Total Protein <3.0 g/dL 04/17/17 11:39 Pleural LDH 72 U/L 04/17/17 11:39 - Hospital Course Hospital Course: 66yo M PMH pancreatic CA (s/p chemo, last dec, last week neulasta), Afib (on Dig ), CAD s/p stent, R tinnitus, DM2 (not regular on insulin), nephrolithiasis who presents with sob and 2+ edema in extremities x4. Patient had elevated WBC of 49.7, which downtrend throughout hospital course. Patient was given IV Lasix to diuresis. 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 CT chest, abd, pelvis showed large right effusion and small left effusion, bilateral atelectasis, Pneumobilia, mass in the region of the pancreatic head. Patient's lovenox was increased to 80q12. Echo showed EF of 25%, global hyokinesis of left ventricle, severe mitral regurgitation and moderate pulmonary HTN. Patient was found to have prevotella Melaninogenica positive bactremia, which was treated with 10 days of merem. Repeat blood cultures where negative. Patient had thoracentesis per IR removing 2400 ml of fluid. Patient was also found to have hematuria. Urology was consulted and recommended outpatient cystoscope and to continue lovenox and asa. Overall patient states he is feeling better. Patient is to follow up with primary care doctor, heme/onc, cardiology and urology for outpatient cystoscope. Patient is aware of hospital course. Discharge instructions were discussed at length with patient, he is in agreement. Discharge Exam - Head Exam Head Exam: ATRAUMATIC, NORMAL INSPECTION, NORMOCEPHALIC - Eye Exam Eye Exam: EOMI, Normal appearance - ENT Exam ENT Exam: Mucous Membranes Moist - Respiratory Exam Respiratory Exam: Clear to PA & Lateral, NORMAL BREATHING PATTERN, UNREMARKABLE. absent: Rales, Rhonchi, Wheezes, Respiratory Distress - Cardiovascular Exam Cardiovascular Exam: REGULAR RHYTHM, +S1, +S2. absent: Tachycardia, Systolic Murmur - GI/Abdominal Exam GI & Abdominal Exam: Normal Bowel Sounds, Unremarkable. absent: Distended, Firm , Guarding, Soft, Tenderness - Extremities Exam Additional comments: mild edema in all 4 extremities - Neurological Exam Neurological exam: Alert, Oriented x3 - Skin Skin Exam: Dry, Intact, Normal Color, Warm Discharge Plan - Discharge Medications Prescriptions: Amino Acids/Protein Hydrolys [Prostat 15 g packet] 30 ml PO TID #90 liq Aspirin [Aspirin Chewable] 81 mg PO DAILY #30 tab Calcium Carbonate [Oscal] 500 mg PO DAILY #30 tab Digoxin [Lanoxin] 0.25 mg PO 1400 #30 tab Enoxaparin [Lovenox] 80 mg SC Q12 #30 syr Furosemide [Lasix] 60 mg PO BID #30 tab Lactose-Reduced Food [Ensure Enlive] 237 ml PO TID #90 liquid Pantoprazole [Protonix EC Tab] 40 mg PO ACB #30 ect Tamsulosin [Flomax] 0.4 mg PO DAILY #30 cap - Follow Up Plan Condition: STABLE Disposition: HOME/ ROUTINE Instructions: Viral Pneumonia (DC), Leukocytosis (DC) Additional Instructions: Follow up with primary care doctor, Dr. Zelaya, in 3-5 days Follow up with urology, in 1 week for hematuria, either with Dr. Cunha [phone]) or Dr. Gross ([phone]) Follow up with heme/onc, Dr. Rey Follow up with cardiology If new or worsening symptoms go to nearest emergency department Referrals: Pop Zelaya MD [Primary Care Provider] - Dalia Rey MD [Staff Provider] - Rommel Gross MD [Staff Provider] - Lorenzo Cunha MD [Staff Provider] - <Waqas Dhaliwal S - Last Filed: 04/23/17 07:54> Provider - Provider Date of Admission: 04/12/17 22:16 Attending physician: Pop Zelaya MD Primary care physician: Pop Zelaya MD Hospital Course - Lab Results Lab Results: Micro Results 04/17/17 11:39 Pleural Fluid Gram Stain - Final 04/17/17 11:39 Pleural Fluid Anaerobic Culture - Final NO ANAEROBES ISOLATED. 04/17/17 11:39 Pleural Fluid Body Fluid Culture - Final No growth. 04/15/17 17:00 Blood-Venous Blood Culture - Final NO GROWTH AFTER 5 DAYS 04/15/17 17:00 Blood-Venous Gram Stain - Final TEST NOT PERFORMED 04/15/17 16:00 Blood-Venous Blood Culture - Final NO GROWTH AFTER 5 DAYS 04/15/17 16:00 Blood-Venous Gram Stain - Final TEST NOT PERFORMED 04/17/17 11:39 Other: Please Indicate Mycobacterial Culture - Preliminary 04/17/17 11:39 Pleural Fluid Fungal Culture - Preliminary 04/12/17 23:25 Urine,Clean Catch Urine Culture - Final No Growth (<1,000 CFU/ML) Most Recent Lab Values WBC 23.3 10^3/ul (4.5-11.0) H 04/22/17 05:45 RBC 3.42 10^6/uL (3.5-6.1) L 04/22/17 05:45 Hgb 10.6 g/dL (14.0-18.0) L 04/22/17 05:45 Hct 32.2 % (42.0-52.0) L 04/22/17 05:45 MCV 94.2 fl (80.0-105.0) 04/22/17 05:45 MCH 31.0 pg (25.0-35.0) 04/22/17 05:45 MCHC 32.9 g/dl (31.0-37.0) 04/22/17 05:45 RDW 21.1 % (11.5-14.5) H 04/22/17 05:45 Plt Count 670 10^3/uL (120.0-450.0) H 04/22/17 05:45 MPV 9.4 fl (7.0-11.0) 04/22/17 05:45 Gran % 74.3 % (50.0-68.0) H 04/22/17 05:45 Lymph % (Auto) 9.8 % (22.0-35.0) L 04/22/17 05:45 Irion % (Auto) 12.4 % (1.0-6.0) H 04/22/17 05:45 Eos % (Auto) 3.0 % (1.5-5.0) 04/22/17 05:45 Baso % (Auto) 0.5 % (0.0-3.0) 04/22/17 05:45 Gran # 17.35 (1.4-6.5) H 04/22/17 05:45 Lymph # 2.3 (1.2-3.4) 04/22/17 05:45 Irion # 2.9 (0.1-0.6) H 04/22/17 05:45 Eos # 0.7 (0.0-0.7) 04/22/17 05:45 Baso # 0.12 K/mm3 (0.0-2.0) 04/22/17 05:45 Neutrophils % (Manual) 82 % (50.0-70.0) H 04/12/17 16:50 Band Neutrophils % 9 % (0-2) H 04/12/17 16:50 Lymphocytes % (Manual) 3 % (22.0-35.0) L 04/12/17 16:50 Monocytes % (Manual) 3 % (1.0-6.0) 04/12/17 16:50 Eosinophils % (Manual) 3 % (0.0-3.0) 04/12/17 16:50 Platelet Evaluation Normal (NORMAL) 04/12/17 16:50 PT 11.7 Seconds (9.9-11.8) 04/15/17 06:40 INR 1.08 (0.93-1.08) 04/15/17 06:40 APTT 32.4 Seconds (23.7-30.8) H 04/14/17 12:42 pO2 50 mm/Hg (30-55) 04/12/17 20:05 VBG pH 7.41 (7.32-7.43) 04/12/17 20:05 VBG pCO2 50.0 (40-60) 04/12/17 20:05 VBG HCO3 31.7 mmol/l (21-28) H 04/12/17 20:05 VBG Total CO2 33.2 mmol.L (22-28) H 04/12/17 20:05 VBG O2 Sat (Calc) 88.1 % (40-65) H 04/12/17 20:05 VBG Base Excess 5.8 mmol/L (0.0-2.0) H 04/12/17 20:05 VBG Potassium 3.0 mmol/L (3.6-5.2) L 04/12/17 20:05 Sodium 139.0 mmol/L (132-148) 04/12/17 20:05 Chloride 103.0 mmol/L (98-107) 04/12/17 20:05 Glucose 102 mg/dl (75-110) 04/12/17 20:05 Lactate 1.4 mmol/L (0.7-2.1) 04/12/17 20:05 FiO2 21.0 % 04/12/17 20:05 Sodium 135 mmol/L (132-148) 04/22/17 05:45 Potassium 4.3 mmol/L (3.6-5.0) 04/22/17 05:45 Chloride 95 mmol/L (95-110) 04/22/17 05:45 Carbon Dioxide 33 mmol/L (21-33) 04/22/17 05:45 Anion Gap 11 (10-20) 04/22/17 05:45 BUN 19 mg/dL (7-21) 04/22/17 05:45 Creatinine 0.8 mg/dL (0.5-1.4) 04/22/17 05:45 Est GFR ( Amer) > 60 04/22/17 05:45 Est GFR (Non-Af Amer) > 60 04/22/17 05:45 POC Glucose (mg/dL) 129 mg/dL (65-110) H 04/22/17 11:45 Random Glucose 95 mg/dL (70-110) 04/22/17 05:45 Hemoglobin A1c 7.5 % (4.2-6.5) H D 04/13/17 05:00 Calcium 8.4 mg/dL (8.4-10.5) 04/22/17 05:45 Magnesium 1.7 mg/dL (1.7-2.2) 04/13/17 05:30 Total Bilirubin 0.4 mg/dL (0.2-1.3) 04/22/17 05:45 AST 28 U/L (17-59) 04/22/17 05:45 ALT 28 U/L (7-56) 04/22/17 05:45 Alkaline Phosphatase 140 U/L (38-126) H 04/22/17 05:45 Lactate Dehydrogenase 491 U/L (333-699) 04/20/17 09:34 Total Creatine Kinase 23 U/L (35-230) L 04/12/17 16:50 Troponin I < 0.01 ng/mL 04/12/17 16:50 NT-Pro-B Natriuret Pep 5160 pg/mL (0-450) H 04/13/17 05:30 Total Protein 6.2 g/dL (5.8-8.3) 04/22/17 05:45 Albumin 3.0 g/dL (3.0-4.8) 04/22/17 05:45 Globulin 3.2 gm/dL 04/22/17 05:45 Albumin/Globulin Ratio 0.9 (1.1-1.8) L 04/22/17 05:45 Procalcitonin 0.74 NG/ML (0.19-0.49) H 04/14/17 10:30 Venous Blood Potassium 3.0 mmol/L (3.6-5.2) L 04/12/17 20:05 Urine Color Dark yellow (YELLOW) 04/22/17 09:00 Urine Appearance Cloudy (CLEAR) 04/22/17 09:00 Urine pH 7.0 (4.7-8.0) 04/22/17 09:00 Ur Specific Stanton 1.010 (1.005-1.035) 04/22/17 09:00 Urine Protein Trace mg/dL (<30 mg/dL) H 04/22/17 09:00 Urine Glucose (UA) Negative mg/dL (NEGATIVE) 04/22/17 09:00 Urine Ketones Negative mg/dL (NEGATIVE) 04/22/17 09:00 Urine Blood Large (NEGATIVE) H 04/22/17 09:00 Urine Nitrate Negative (NEGATIVE) 04/22/17 09:00 Urine Bilirubin Negative (NEGATIVE) 04/22/17 09:00 Urine Urobilinogen 0.2 E.U./dL (<1 E.U./dL) 04/22/17 09:00 Ur Leukocyte Esterase Small Valdo/uL (NEGATIVE) H 04/22/17 09:00 Urine RBC Tntc /hpf (0-2) 04/22/17 09:00 Urine WBC 2 - 5 /hpf (0-6) 04/22/17 09:00 Ur Epithelial Cells 1 - 3 /hpf (0-5) 04/22/17 09:00 Fluid Source Pleural 04/17/17 11:39 Fluid Appearance Clear (CLEAR) 04/17/17 11:39 Fluid WBC 419.0 /uL (0.0-300.0) H 04/17/17 11:39 Fluid RBC 401.5 /uL (0.0-0.0) H 04/17/17 11:39 Fluid Tot Cell Count 100 (0-0) H 04/17/17 11:39 Fluid Neutrophils 27.0 % (0-0) H 04/17/17 11:39 Fluid Lymphocytes 73.0 % (0-0) H 04/17/17 11:39 Fld Monocyte/Macrophag TEST NOT PERFORMED 04/17/17 11:39 Fluid Comment Yellow color 04/17/17 11:39 Pleural pH 7.0 04/17/17 11:39 Pleural Total Protein <3.0 g/dL 04/17/17 11:39 Pleural LDH 72 U/L 04/17/17 11:39 - Hospital Course Hospital Course: went over w/ resident follow up w/ pmd this week meds reviewed
[2017-04-22 17:18] VITALS: BP 108/74; PULSE 89; TEMP 98.1; O2SAT 97
== END 2017-04-22 17:17 | disposition home health service (06) | DRG 871 ==
LOC: ED 16:14 → ERH 22:16 → 3RSO 04-13 01:18
PROVIDERS: ADMIT Internal Medicine; ATTEND Internal Medicine
PROC: BB4BZZZ Ultrasonography of Pleura (ICD-10-PCS; 2017-04-17)
PROC: 0W993ZX Drainage of Right Pleural Cavity, Percutaneous Approach, Diagnostic (ICD-10-PCS; principal; 2017-04-17 11:30)
DX: A41.59 Other Gram-negative sepsis (principal); J18.9 Pneumonia, unspecified organism; I50.23 Acute on chronic systolic (congestive) heart failure; J91.8 Pleural effusion in other conditions classified elsewhere; C25.9 Malignant neoplasm of pancreas, unspecified; I42.0 Dilated cardiomyopathy; I13.0 Hypertensive heart and chronic kidney disease with heart failure and stage 1 through stage 4 chronic kidney disease, or unspecified chronic kidney disease; I87.1 Compression of vein; J98.11 Atelectasis; D63.8 Anemia in other chronic diseases classified elsewhere; E11.22 Type 2 diabetes mellitus with diabetic chronic kidney disease; I48.2 Chronic atrial fibrillation; Y95 Nosocomial condition; K22.70 Barrett's esophagus without dysplasia; I25.118 Atherosclerotic heart disease of native coronary artery with other forms of angina pectoris; N18.9 Chronic kidney disease, unspecified; F12.90 Cannabis use, unspecified, uncomplicated; E87.6 Hypokalemia; R04.0 Epistaxis; N40.0 Benign prostatic hyperplasia without lower urinary tract symptoms; I34.0 Nonrheumatic mitral (valve) insufficiency; I27.2 Other secondary pulmonary hypertension; Z86.72 Personal history of thrombophlebitis; Z87.891 Personal history of nicotine dependence; Z87.442 Personal history of urinary calculi; Z95.5 Presence of coronary angioplasty implant and graft

== ENCOUNTER 2017-10-17 17:10 | Inpatient (IN) | payer MEDICARE, OTHER ==
[2017-10-17 17:28] VITALS: BMI 24.8
[2017-10-17] MEDS ORDERED: Sodium Chloride 0.9% 1,000 ML IV STA (17:58)
--- NOTE | 2017-10-17 18:01 | ED PDOC ---
Arrival/HPI - General Chief Complaint: Medical Clearance Time Seen by Provider: 10/17/17 17:53 Historian: Patient - History of Present Illness Narrative History of Present Illness (Text): 10/17/17 17:59 pt p/w + weeks onset of increasing weakness; pt was also noted to be more jaundiced; pt was evaluated by oncologists, Dr Abarca today, and was instructed to come to ED for further mgt/txt/likely admission; pt states he is otherwise doing well; no fever/chills/sweats, no cp/sob/palpitations, no abd pain, no n/v, no numbness/tingling, no urinary/bowl changes, no fall/trauma/ sick contact, no travel; pt denied other complaints; pt states no loc/ lightheadedness pt is here for further eval PCP: Dr Zelaya oncology: Dr Abarca vascular: Dr Rojelio Dorantes 10/17/17 19:18 Time/Duration: Other (over the last few weeks) Symptom Onset: Gradual Symptom Course: Worsening Activities at Onset: Rest Context: Home Past Medical History - Provider Review Nursing Documentation Reviewed: Yes - Travel History Have you recently traveled outside [place] w/in the past 3 mons?: No - Past History Past History: No Previous - Infectious Disease Hx of Infectious Diseases: None - Tetanus Immunization Tetanus Immunization: Unknown - Cardiac Hx Cardiac Disorders: Yes (AFib) Hx Congestive Heart Failure: Yes Hx Hypertension: Yes Hx Hypotension: Yes - Pulmonary Hx Respiratory Disorders: Yes (LUNG NODULE.SMOKED CIGARETTES-QUIT 1973. <PK. SMOKED MARIJUANA.LAST 2014) Hx Pneumonia: Yes - Neurological Hx Neurological Disorder: Yes Hx Dizziness: Yes - HEENT Hx HEENT Disorder: No - Renal Hx Renal Disorder: Yes Hx Kidney Stones: Yes - Endocrine/Metabolic Hx Diabetes Mellitus Type 1: Yes Other/Comment: Pancreatic CA - Hematological/Oncological Hx Anemia: Yes (8-30-16 GI BLEED) Hx Cancer: Yes (Pancreatic Ca) Other/Comment: prbc and ffp blood transfusions - Integumentary Other/Comment: multiple dry skin areas to right arm, surgical incision to mid abd healing kristy - Musculoskeletal/Rheumatological Hx Falls: No - Gastrointestinal Other/Comment: esophageal ulcers, esophageal polyp. food bezoar, duodenal gstric outlet obstruction, barretts esophagus, gi bleed, constipation, nausea - Genitourinary/Gynecological Hx Genitourinary Disorders: No - Psychiatric Hx Emotional Abuse: No Hx Physical Abuse: No Hx Substance Use: Yes (MARIJUANA. LAST SMOKED LAST 2014) - Past Surgical History Past Surgical History: No Previous - Surgical History Hx Coronary Stent: Yes (03/2013) Other/Comment: ? Stent on Gallbladder. ? Stomach bypass sx - Anesthesia Hx Anesthesia: Yes Hx Anesthesia Reactions: No Hx Malignant Hyperthermia: No - Suicidal Assessment Feels Threatened In Home Enviroment: No Family/Social History - Physician Review Nursing Documentation Reviewed: Yes Family/Social History: No Known Family HX Smoking Status: Former Smoker Hx Alcohol Use: Yes (OCCASIONAL DRINKS) Hx Substance Use: Yes (MARIJUANA. LAST SMOKED LAST 2014) Hx Substance Use Treatment: No Allergies/Home Meds Allergies/Adverse Reactions: Allergies iv tape Allergy (Mild, Uncoded 04/12/17 16:29) RASH Home Medications: Home Meds Medication Instructions Recorded Confirmed Furosemide [Lasix] 60 mg PO DAILY 10/17/17 10/17/17 Pantoprazole [Protonix EC Tab] 40 mg PO ACB PRN 10/17/17 10/17/17 Review of Systems - Review of Systems Constitutional: Fatigue, Weight Change Eyes: Normal ENT: Normal Respiratory: Normal Cardiovascular: Normal Gastrointestinal: Normal. absent: Abdominal Pain Genitourinary Male: Normal Musculoskeletal: Normal Skin: Pruritis, Other (jaundice) Neurological: Normal Endocrine: Normal Hemo/Lymphatic: Normal Psychiatric: Normal Physical Exam Vital Signs Reviewed: Yes Vital Signs Temp Pulse Resp BP Pulse Ox 10/17/17 21:25 97.8 F 88 16 123/86 99 10/17/17 19:25 88 120/76 10/17/17 17:37 97.6 F 80 18 123/73 95 Temperature: Afebrile Blood Pressure: Normal Pulse: Regular Respiratory Rate: Normal Appearance: Positive for: Well-Appearing, Uncomfortable, Other (NAD, alert/awake , resting in bed, cooperative, follows command with ease) Pain Distress: None Mental Status: Positive for: Alert and Oriented X 3 - Systems Exam Head: Present: Atraumatic, Normocephalic Pupils: Present: PERRL, Other (visual field intact, no nystagmus, no photophobia , sclera icteric) Extroacular Muscles: Present: EOMI Conjunctiva: Present: Icteric Ears: Present: Normal Mouth: Present: Moist Mucous Membranes, Other (fair dentitions, no drooling/ stridor, no exudate/lesions) Pharnyx: Present: Normal Nose (External): Present: Atraumatic Nose (Internal): Present: Normal Inspection Neck: Present: Normal Range of Motion, Trachea Midline, Other (no meningeal signs, no midline tenderness, no nuchal rigidity, no step off). No: MIDLINE TENDERNESS Respiratory/Chest: Present: Clear to Auscultation, Good Air Exchange, Other ( CTA b/l, no w/r/r, no accessory muscle use noted, no tachypenia) Cardiovascular: Present: Regular Rate and Rhythm, Normal S1, S2. No: Murmurs Abdomen: Present: Normal Bowel Sounds, Other (mild thin male, no focal tenderness, no franklin's sign, no mcburney's point tenderness, no rebound/ guarding/rigidity) Back: Present: Normal Inspection. No: Midline Tenderness Upper Extremity: Present: Normal Inspection, Normal ROM, NORMAL PULSES, Neurovascularly Intact, Capillary Refill < 2s Lower Extremity: Present: Normal Inspection, Edema (+1-2/6 pitting edema b/l up to prox knee; no focal calf tenderness, strength 5/5 grossly intact in all limbs , neurovasc intact b/l), NORMAL PULSES, Normal ROM, Neurovascularly Intact Neurological: Present: GCS=15, CN II-XII Intact, Speech Normal Skin: Present: Warm, Dry, Other (cap refill ~ 1sec, + jaundice, no lesions/ ulcerations, no focal rashes noted) Psychiatric: Present: Alert, Oriented x 3 Medical Decision Making ED Course and Treatment: 10/17/17 18:00 Impression: ABNL labs i have consider all the differential diagnosis regarding pt's chief medical complaints/clinical findings, including but are not limited to: worsening jaundice A/P: worsening jaundice - labs - iv - xray - u/a - observe - supportive care 10/17/17 18:[address] Abarca, oncology, is aware, agrees with ED mgt/txt, would like CT chest/abd/pelvis with iv/po contrast, would like patient admitted to PCP and to consult Dr Rojelio Dorantes 10/17/17 [id number] Verdugo, hospitalists c application developer, made aware, to continue to monitor patient's labs and CT results and to recontact overnight hospitalists team pt is currently at baseline, no focal complaints pt is made aware of his medical results agrees with admission 10/17/17 19:[address] Rojelio Dorantes on 2 attempts, no reply, will continue to consult Dr Dorantes pt is endorsed to Dr Oconnell, overnight ED attending, pt is awaiting labs/Ct results and to contact hospitalists team and notified them of the results; pt remained admitted to the hospital for further workup/eval Re-evaluation Time: 19:07 Reassessment Condition: Improving,but remains with symptoms - Lab Interpretations Lab Results: 10/17/17 18:18 10/17/17 18:18 Lab Results 10/17/17 18:18: Sodium 135, Potassium 4.0, Chloride 100, Carbon Dioxide 28, Anion Gap 11, BUN 19, Creatinine 1.0, Est GFR ( Amer) > 60, Est GFR (Non- Af Amer) > 60, Random Glucose 148 H, Calcium 8.1 L, Total Bilirubin 13.5 H, AST 92 H D, ALT 58 H, Alkaline Phosphatase 698 H D, Total Protein 5.9, Albumin 2.5 L , Globulin 3.4, Albumin/Globulin Ratio 0.7 L, Amylase 82, Lipase 17 L 10/17/17 18:18: PT 14.7 H, INR 1.28 H, APTT 182.4 H* 10/17/17 18:18: WBC 19.0 H, RBC 3.01 L, Hgb 10.1 L, Hct 29.9 L, MCV 99.3 D, MCH 33.6, MCHC 33.8, RDW 25.9 H, Plt Count 660 H, MPV 9.9, Gran % 76.1 H, Lymph % (Auto) 9.5 L, Runnels % (Auto) 12.5 H, Eos % (Auto) 1.3 L, Baso % (Auto) 0.6, Gran # 14.49 H, Lymph # (Auto) 1.8, Runnels # (Auto) 2.4 H, Eos # (Auto) 0.3, Baso # (Auto) 0.11 I have reviewed the lab results: Yes Interpretation: Abnormal lab values (persistent leukocytosis; elevated t bili) - RAD Interpretation Radiology Orders: 10/17/17 17:58 CHEST PORTABLE [RAD] Stat 03/14/18 18:10 CHEST,ABD,PEL W/IV&PO CONTRAST [CT] Stat Supervisor Covering And Lining: Radiologist - EKG Interpretation EKG Interpretation (Text): 10/17/17 19:09 atrial fib at 85 bpm, LAD, no ectopy, poor baseline, diffuse low voltage in all leads; qs in leads III/F, V1-2, non-specific st-t changes, ABNL EKG; unchanged compare with old ekg 04/2017 Interpreted by ED Physician: Yes Type: 12 lead EKG Comparison: Similar to previous EKG - Medication Orders Current Medication Orders: Aspirin (Ecotrin) 81 mg PO DAILY [facility] Last Admin: 10/19/17 10:44 Dose: 81 mg Digoxin (Lanoxin) 0.25 mg PO 1400 CHRISTOPHER Last Admin: 10/19/17 13:21 Dose: 0.25 mg MAR Apical Pulse Rate Document 10/19/17 13:21 SOUSV (Rec: 10/19/17 13:21 SOUSV [id number]) Apical Pulse Rate Apical Pulse Rate (60-90 beats/min) 90 Furosemide (Lasix) 60 mg PO DAILY [facility] Last Admin: 10/19/17 10:43 Dose: 60 mg MAR Blood Pressure Document 10/19/17 10:43 SOUSV (Rec: 10/19/17 10:44 SOUSV [id number]) Blood Pressure Blood Pressure (100/60-150/90) 102/69 Heparin Sodium (Porcine) (Heparin) 5,000 units SC Q12 CHRISTOPHER PRN Reason: Protocol Meropenem (Merrem Iv 1 Gm Premix) 50 mls @ 100 mls/hr IVPB Q8 CHRISTOPHER PRN Reason: Protocol Last Admin: 10/19/17 13:21 Dose: 100 mls/hr eMAR Start Stop Document 10/19/17 13:21 SOUSV (Rec: 10/19/17 13:21 SOUSV [id number]) Intravenous Solution Start Date 10/19/17 Start Time 13:21 End Date 10/19/17 End time 13:51 Total Infusion Time 30 Vancomycin HCl (Vancomycin 1gm) 1 gm in 250 mls @ 167 mls/hr IVPB 0600,1800 CHRISTOPHER PRN Reason: Protocol Last Admin: 10/19/17 06:29 Dose: 167 mls/hr eMAR Start Stop Document 10/19/17 06:29 RM (Rec: 10/19/17 06:30 RM [id number]) Intravenous Solution Start Date 10/19/17 Start Time 06:59 End Date 10/19/17 End time 08:29 Total Infusion Time 90 Insulin Human Lispro (Humalog Low) 0 units SC Q6 CHRISTOPHER PRN Reason: Protocol Last Admin: 10/19/17 13:06 Dose: Not Given Non-Admin Reason: Blood Sugar Parameter MAR Blood Glucose Document 10/19/17 13:06 SOUSV (Rec: 10/19/17 13:06 SOUSV [id number]) Blood Glucose Finger Stick Blood Glucose (70-120) 74 Ondansetron HCl (Zofran Inj) 4 mg IVP Q4H PRN PRN Reason: Nausea/Vomiting Pantoprazole Sodium (Protonix Ec Tab) 40 mg PO 0600 CHRISTOPHER Last Admin: 10/19/17 06:30 Dose: 40 mg Tamsulosin HCl (Flomax) 0.4 mg PO DAILY CHRISTOPHER Last Admin: 10/19/17 10:44 Dose: 0.4 mg Discontinued Medications Calcium Carbonate (Oscal) 500 mg PO DAILY CHRISTOPHER Last Admin: 10/19/17 10:44 Dose: 500 mg Sodium Chloride (Sodium Chloride 0.9%) 1,000 mls @ 100 mls/hr IV .Q10H STA Stop: 10/18/17 03:57 Last Admin: 10/17/17 18:44 Dose: 100 mls/hr eMAR Start Stop Document 10/17/17 18:44 LA (Rec: 10/17/17 18:45 LA [id number]) Intravenous Solution Start Date 10/17/17 Start Time 18:45 Ceftriaxone Sodium (Rocephin 1 Gram Ivpb) 1 gm in 100 mls @ 100 mls/hr IVPB STAT STA PRN Reason: Protocol Stop: 10/18/17 07:14 Meropenem (Merrem Iv 1 Gm Premix) 50 mls @ 100 mls/hr IVPB 0300,1500 CHRISTOPHER PRN Reason: Protocol Last Admin: 10/18/17 15:10 Dose: 100 mls/hr Comments: GIVEN BY DR SOLANGE ChandlerR Start Stop Document 10/18/17 15:10 CZU (Rec: 10/18/17 15:12 CZU [id number]) Intravenous Solution Start Date 10/18/17 Start Time 15:12 Vancomycin HCl (Vancomycin 1gm) 1 gm in 250 mls @ 167 mls/hr IVPB Q12H CHRISTOPHER PRN Reason: Protocol Last Admin: 10/18/17 17:34 Dose: 167 mls/hr eMAR Start Stop Document 10/18/17 17:34 WILLIAM (Rec: 10/18/17 17:35 WILLIAM [id number]) Intravenous Solution Start Date 10/18/17 Start Time 17:34 End Date 10/18/17 End time 19:04 Total Infusion Time 90 Lactated Ringer's (Lactated Ringer's) 1,000 mls @ 75 mls/hr IV .[id number] CHRISTOPHER Stop: 10/18/17 18:16 Disposition/Present on Arrival - Present on Arrival Any Indicators Present on Arrival: No History of DVT/PE: No History of Uncontrolled Diabetes: No Urinary Catheter: No History of Decub. Ulcer: No History Surgical Site Infection Following: None - Disposition Have Diagnosis and Disposition been Completed?: Yes Diagnosis: Pancreatic cancer, Jaundice, Weakness, Leukocytosis, unspecified Disposition: HOSPITALIZED Disposition Time: 18:45 Patient Plan: Admission Patient Problems: Current Active Problems Problem Status Onset Leukocytosis Acute Pancreatic cancer Acute Jaundice Acute Weakness Acute Condition: STABLE
[2017-10-17] MEDS ORDERED: Iohexol 240 (50 ml) ONE (18:50)
[2017-10-17] MEDS ORDERED: Iohexol 350 MG/100 ML VIAL ONE (18:50)
[2017-10-17 19:15] LABS: BASO # 0.11 K/mm3 (0.0-2.0); BASO % 0.6 % (0.0-3.0); EOS # 0.3 (0.0-0.7); EOS % 1.3 % (1.5-5.0); GRAN # 14.49 (1.4-6.5); GRAN % 76.1 % (50.0-68.0); HEMOGLOBIN 10.1 g/dL (14.0-18.0); LYMPH # 1.8 (1.2-3.4); LYMPH % 9.5 % (22.0-35.0); MEAN CELL VOLUME 99.3 fl (80.0-105.0); MEAN CORPUSCULAR HEMOGLOBIN 33.6 pg (25.0-35.0); MEAN CORPUSCULAR HGB CONC 33.8 g/dl (31.0-37.0); MEAN PLATELET VOLUME 9.9 fl (7.0-11.0); MONO # 2.4 (0.1-0.6); MONO % 12.5 % (1.0-6.0); RBC 3.01 10^6/uL (3.5-6.1); RED CELL DISTRIBUTION WIDTH 25.9 % (11.5-14.5)
[2017-10-17 19:30] LABS: ALB/GLOB RATIO 0.7 (1.1-1.8); ALBUMIN 2.5 g/dL (3.0-4.8); ALT/SGPT 58 U/L (7-56); AMYLASE 82 U/L (35-125); AST/SGOT 92 U/L (17-59); BLOOD UREA NITROGEN 19 mg/dL (7-21); CALCIUM 8.1 mg/dL (8.4-10.5); GFR AFRICAN-AMERICAN > 60; GFR NON-AFRICAN AMERICAN > 60; LIPASE 17 U/L (23-300)
[2017-10-17 19:31] LABS: INR 1.28 (0.93-1.08); PROTHROMBIN TIME 14.7 SECONDS (9.4-12.5)
[2017-10-17 19:36] LABS: PARTIAL THROMBOPLASTIN TIME 182.4 Seconds (25.1-36.5)
[2017-10-17] MEDS ORDERED: Iodixanol 320 MG/ML 100 ML BOTTLE IV ONE (21:54)
--- NOTE | 2017-10-17 23:44 | CT ---
EXAM: CT Abdomen and Pelvis With Intravenous Contrast CLINICAL HISTORY: The patient age is 66 years old and is male; Signs and symptoms; Bloating and other: Jaundice; Other: Jaundice, bloating, SOB; Additional info: Worsening abd bloating/jaundice, +pancr cancer Facility exam id and description: Ct cheabdpelc chest, abd, pel w/iv po contrast TECHNIQUE: Axial computed tomography images of the abdomen and pelvis with intravenous contrast. All CT scans at this facility use one or more dose reduction techniques, viz.: automated exposure control; ma/kV adjustment per patient size (including targeted exams where dose is matched to indication; i.e. head); or iterative reconstruction technique. Coronal and sagittal reformatted images were created and reviewed. CONTRAST: 95 mL of visipaque 320 administered intravenously. COMPARISON: CT - ABD PELVIS PO CONTRAST ONLY 2017-04-15 21:59 FINDINGS: ABDOMEN: Liver: No mass. There is perihepatic ascites. Gallbladder and bile ducts: There is intra-and extra hepatic biliary dilatation. A common bile duct stent is visualized, which extends into the duodenum. The gallbladder is mildly distended. There is a small amount of pericholecystic fluid Pancreas: A mass is visualized in the region of the pancreatic head, with both solid and cystic/necrotic components. This measures approximately 4.8 x 4.4 cm. This has progressed compared to the prior study. This mass is contiguous with the wall of the antrum of the stomach, and infiltration cannot be excluded. There is marked dilatation of the pancreatic duct measuring 1.5 cm in diameter. Spleen: There is a new peripherally enhancing lesion within the superior aspect of the spleen measuring 1.2 cm in diameter. There is otherwise heterogeneous density of the spleen. Adrenals: No mass. Kidneys and ureters: Large bilateral renal calculi are visualized, without hydronephrosis. Cortical scarring is identified of the right kidney. There is a large hypodense cyst exophytic to the midpole the left kidney measuring 7.5 cm in diameter. An additional small left renal cyst is visualized. Stomach and bowel: Colonic diverticula are identified. The presence of ascites limits evaluation for diverticulitis. Postoperative changes are identified involving bowel within the anterior abdomen. Appendix: Poorly visualized. PELVIS: Bladder: No mass. Reproductive: The prostate is mildly enlarged. ABDOMEN and PELVIS: Intraperitoneal space: There is mild abdominal and pelvic ascites. Bones/joints: There posterior herniation is visualized at L4-5 on the left side, with a focus of gas. A vacuum disc phenomenon visualized at L4-5. There is moderate narrowing of the thecal sac at this level. Soft tissues: Edematous changes visualized within the soft tissues of the abdomen and pelvis, consistent with anasarca. There is a left inguinal hernia containing fluid. Vasculature: Atherosclerotic changes are identified. No abdominal aortic aneurysm. Lymph nodes: There is a mildly enlarged left para-aortic retroperitoneal lymph node measuring 1.2 x 1.0 cm, without progression. Scattered additional small retroperitoneal lymph nodes are visualized. IMPRESSION: 1. There is intra-and extra hepatic biliary dilatation. A common bile duct stent is visualized, which extends into the duodenum. 2. A mass is visualized in the region of the pancreatic head, with both solid and cystic/necrotic components. This measures approximately 4.8 x 4.4 cm. This has progressed compared to the prior study. This mass is contiguous with the wall of the antrum of the stomach, and infiltration cannot be excluded. There is severe dilatation of the pancreatic duct. 3. There is a new peripherally enhancing lesion within the superior aspect of the spleen measuring 1.2 cm in diameter. 4. There is mild abdominal and pelvic ascites. 5. The gallbladder is mildly distended. There is a small amount of pericholecystic fluid 6. Anasarca. 7. The prostate is mildly enlarged. 8. Colonic diverticular disease. 9. Large bilateral renal calculi are visualized, without hydronephrosis. 10. There is a mildly enlarged left para-aortic retroperitoneal lymph node measuring 1.2 x 1.0 cm, without progression. 11. Additional CT findings described above. EXAM: CT Chest With Intravenous Contrast EXAM DATE/TIME: 10/17/2017 6:10 PM CLINICAL HISTORY: The patient age is 66 years old and is male; Signs and symptoms; Bloating and other: Jaundice; Other: Jaundice, bloating, SOB; Additional info: Worsening abd bloating/jaundice, +pancr cancer Facility exam id and description: Ct cheabdpelc chest, abd, pel w/iv po contrast TECHNIQUE: Axial computed tomography images of the chest with intravenous contrast. All CT scans at this facility use one or more dose reduction techniques, viz.: automated exposure control; ma/kV adjustment per patient size (including targeted exams where dose is matched to indication; i.e. head); or iterative reconstruction technique. Coronal and sagittal reformatted images were created and reviewed. CONTRAST: 95 mL of visipaque 320 administered intravenously. COMPARISON: CT - ANGIO CHEST PE PROTOCOL 04/12/2017 7:42:29 PM FINDINGS: Lungs: There is consolidation within the right middle and lower lobes, suggestive of atelectatic change or infiltrates. Mild atelectasis is identified within the left lower lobe. Patchy groundglass density and increased interstitial markings are visualized within the lungs bilaterally. Otherwise, no well-defined lung mass is visualized. Pleural space: Large bilateral pleural effusions are again identified, right side greater than left. No pneumothorax. Heart: There is mild cardiomegaly. Bones/joints: Hypertrophic degenerative changes are noted within the spine. There is mild increased kyphosis of the thoracic spine. Vasculature: There is absence of enhancement of the distal superior vena cava, consistent with thrombosis. Otherwise, there is improved enhancement of the SVC compared to the prior CTA. Atherosclerotic changes are visualized of the aorta. The main pulmonary trunk, right/left main pulmonary arteries, and the proximal lobar branches demonstrate no definite intraluminal filling defect to suggest pulmonary embolism. No thoracic aortic aneurysm. Lymph nodes: Scattered mediastinal lymph nodes are identified, a few which are mildly enlarged. A subaortic lymph node measures 1.3 x 0.7 cm. Tubes, lines and devices: There is a right-sided Port-A-Cath. Other: There is swelling of the soft tissues of the chest, consistent with anasarca. IMPRESSION: 1. Large bilateral pleural effusions are again identified, right side greater than left. 2. There is stable consolidation within the right middle and lower lobes, suggestive of atelectatic change or infiltrates. Mild atelectasis is identified within the left lower lobe. 3. Patchy groundglass density and increased interstitial markings are visualized within the lungs bilaterally. 4. There is mild cardiomegaly. 5. Scattered mediastinal lymph nodes are identified, a few which are mildly enlarged. 6. There is absence of enhancement of the distal superior vena cava, consistent with thrombosis. Otherwise, there is improved enhancement of the SVC compared to the prior CTA. 7. Anasarca.
--- NOTE | 2017-10-18 02:27 | CP.PCM.HP ---
<Doroteo Owens - Last Filed: 10/18/17 03:07> History of Present Illness - History of Present Illness History of Present Illness: Doroteo Owens PGY1 H&P Note for Hospitalist Service cc: sent by Dr. Rey Mr. Campuzano is a 66yo M with PMH pancreatic CA (on chemo, s/p gastrojejunostomy due to gastric outlet obstruction by Dr. Dsouza, and pancreatic stent placement by Dr. Dorantes, not a surgical candidate for pancreatic surgery), Afib (on Dig), CAD s/p stent (by Dr. Yoder), R tinnitus, DM2 and nephrolithiasis who presents after going to Dr. Rey's office earlier today for his scheduled chemo. Dr. Rey saw that the patient is more jaundice than usual, something which he did not notice, and recommended that he come into the ER to evaluate if his pancreatic stent, which was placed by Dr. Dorantes, had occluded. He did not receive his chemotherapy today. For completeness, pt's last chemo treatment was last Sunday. He does endorse shortness of breath with exertion. Otherwise, pt denies cp, palpitations, sob at rest, changes in vision/hearing, weakness, abdominal pain, constipation or diarrhea, bowel or urinary changes, n/v, fevers/chills, cough, or urinary urgency/dysuria. 12- point ROS reviewed and is otherwise unremarkable. PMH: pancreatic CA (on chemo, s/p gastrojejunostomy due to gastric outlet obstruction by Dr. Dsouza, and pancreatic stent placement by Dr. Dorantes, not a surgical candidate for pancreatic surgery), Afib (on Dig), CAD s/p stent (by Dr. Yoder), R tinnitus, DM2 (states has improved since he lost weight with his cancer) and nephrolithiasis PSH: gastrojejunostomy, pancreatic stent, cardiac stent Meds: as per MAR Allergies: tape on IV SHx: former smoker, ETOH and marijuana user (many years ago). Lives alone Present on Admission - Present on Admission Any Indicators Present on Admission: No Review of Systems - Review of Systems All systems: reviewed and no additional remarkable complaints except (as per HPI ) Past Patient History - Infectious Disease Hx of Infectious Diseases: None - Tetanus Immunizations Tetanus Immunization: Unknown - Past Medical History & Family History Past Medical History?: Yes - Past Social History Smoking Status: Former Smoker Alcohol: None Drugs: Denies - CARDIAC Hx Cardiac Disorders: Yes (AFib) Hx Congestive Heart Failure: Yes Hx Hypertension: Yes - PULMONARY Hx Respiratory Disorders: Yes (LUNG NODULE.SMOKED CIGARETTES-QUIT 1973. <PK. SMOKED MARIJUANA.LAST 2014) Hx Pneumonia: Yes - NEUROLOGICAL Hx Neurological Disorder: Yes Hx Dizziness: Yes - HEENT Hx HEENT Problems: No - RENAL Hx Chronic Kidney Disease: Yes Hx Kidney Stones: Yes - ENDOCRINE/METABOLIC Hx Endocrine Disorders: Yes Hx Diabetes Mellitus Type 2: Yes Other/Comment: Pancreatic CA - HEMATOLOGICAL/ONCOLOGICAL Hx Blood Disorders: Yes Hx Anemia: Yes (04-04-16 GI BLEED) Hx Cancer: Yes (Pancreatic Ca) Other/Comment: prbc and ffp blood transfusions - INTEGUMENTARY Hx Dermatological Problems: Yes - MUSCULOSKELETAL/RHEUMATOLOGICAL Hx Musculoskeletal Disorders: No Hx Falls: No - GASTROINTESTINAL Hx Gastrointestinal Disorders: Yes Hx Gastroesophageal Reflux: Yes Hx Ulcer: Yes Other/Comment: esophageal ulcers, esophageal polyp. food bezoar, duodenal gstric outlet obstruction, barretts esophagus, gi bleed, constipation, nausea - GENITOURINARY/GYNECOLOGICAL Hx Genitourinary Disorders: No Hx Prostate Problems: Yes - PSYCHIATRIC Hx Psychophysiologic Disorder: No Hx Emotional Abuse: No Hx Physical Abuse: No - SURGICAL HISTORY Hx Surgeries: Yes Hx Coronary Stent: Yes (03/2013) Other/Comment: pancreatic stent. gastrojejunostomy - ANESTHESIA Hx Anesthesia: Yes Hx Anesthesia Reactions: No Hx Malignant Hyperthermia: No Meds Allergies/Adverse Reactions: Allergies Allergy/AdvReac Type Severity Reaction Status Date / Time iv tape Allergy Mild RASH Uncoded 04/12/17 16:29 Physical Exam - Constitutional Appears: Well, Non-toxic, No Acute Distress - Head Exam Head Exam: NORMAL INSPECTION - Eye Exam Eye Exam: EOMI, PERRL, Scleral icterus (severe) - ENT Exam ENT Exam: Mucous Membranes Dry - Neck Exam Neck exam: Positive for: Normal Inspection Additional comments: no JVD - Respiratory Exam Respiratory Exam: Clear to Auscultation Bilateral, NORMAL BREATHING PATTERN. absent: Rales, Rhonchi, Wheezes, Respiratory Distress - Cardiovascular Exam Cardiovascular Exam: RRR, +S1, +S2. absent: JVD Additional comments: R chest port - GI/Abdominal Exam GI & Abdominal Exam: Organomegaly, Soft. absent: Distended, Guarding, Tenderness Additional comments: midline upper abdomen scar - Extremities Exam Extremities exam: Positive for: full ROM, pedal edema (1+) Additional comments: 2+ UE b/l - Back Exam Back exam: NORMAL INSPECTION Additional comments: generalized muscle atrophy noted - Neurological Exam Neurological exam: Alert, Oriented x3 - Psychiatric Exam Psychiatric exam: Normal Affect, Normal Mood - Skin Skin Exam: Warm Additional comments: jaundice livedo reticlaris noted Results - Vital Signs Recent Vital Signs: Last Vital Signs Temp 97.4 F L 10/17/17 23:08 Pulse 84 10/17/17 23:08 Resp 20 10/17/17 23:08 BP 114/75 10/17/17 23:08 Pulse Ox 99 10/17/17 21:25 - Labs Result Diagrams: 10/17/17 18:18 10/17/17 18:18 Assessment & Plan - Assessment and Plan (Free Text) Assessment: 66yo M PMH pancreatic CA, Afib (on Dig), CAD, R tinnitus, DM2, nephrolithiasis who presents after being seen by Dr. Rey and told to come in for his jaundice. Plan: 1. jaundice - CT abdomen showed intra-and extra hepatic biliary dilatation. A common bile duct stent is visualized, which extends into the duodenum. A mass is visualized in the region of the pancreatic head, with both solid and cystic/necrotic components. This measures approximately 4.8 x 4.4 cm. This has progressed compared to the prior study. This mass is contiguous with the wall of the antrum of the stomach, and infiltration cannot be excluded. There is severe dilatation of the pancreatic duct. There is a new peripherally enhancing lesion within the superior aspect of the spleen measuring 1.2 cm in diameter. There is mild abdominal and pelvic ascites. The gallbladder is mildly distended. There is a small amount of pericholecystic fluid. Anasarca. The prostate is mildly enlarged. Colonic diverticular disease. Large bilateral renal calculi are visualized, without hydronephrosis. There is a mildly enlarged left para-aortic retroperitoneal lymph node measuring 1.2 x 1.0 cm, without progression. Also noted on CXR is large bilateral pleural effusions are again identified, right side greater than left. The R pleural effusion is consistent compared to a CXR from 08/2017 and there is no tracheal deviation as read by me. - Tbili elevated - DBili ordered - Dr. Dorantes consulted, and he ordered CT abd w/ PO and IV contrast and a HIDA - NPO past mn - NS @ 100 - Zofran PRN 2. Hx Pancreatic Ca - Dr. Rey consulted - monitor for any changes - no significant abdominal distention at this time 3. Leukocytosis likely reactive 2/2 chemo - pt currently afebrile - blood and urine cxs to be ordered - CXR showed no changes from prior scans 4. hypocalcemia - Oscal daily - f/u BMP daily 5. Hx GERD and gastric obstruction w/ gastric erosions and a prior GI bleed s/p emergent gastrojejunostomy and enteroenterostomy in 03/2016 - PTX for GI ppx - monitor H/H 6. Hx Afib - cont Digoxin 7. Hx DM? - pt currently only mildly hyperglycemic - last A1C 7.5 from 04/2017 - repeat A1C level - ISS low scale - Accuchecks Q6 due to NPO, can switch to ACHS once diet started 8. Hx CAD s/p stent - ASA 81mg daily 9. BPH - flomax home dose NPO NS 100 PTX/ will hold heparin given elevated PTT and repeat PTT in the morning Patient was seen, examined and discussed with attending, Dr. Esthela Owens <Lilian Verdugo N - Last Filed: 10/19/17 01:21> Results - Vital Signs Recent Vital Signs: Last Vital Signs Temp 97.5 F L 10/18/17 16:49 Pulse 108 H 10/18/17 16:49 Resp 16 10/18/17 16:49 BP 116/75 10/18/17 16:49 Pulse Ox 98 10/18/17 16:49 - Labs Result Diagrams: 10/18/17 05:40 10/18/17 05:40 Labs: Laboratory Results - last 24 hr 10/18/17 10/18/17 10/18/17 05:31 05:40 05:40 WBC 21.2 H RBC 3.22 L Hgb 10.8 L Hct 31.7 L MCV 98.4 MCH 33.5 MCHC 34.1 RDW 26.0 H Plt Count 654 H MPV 9.7 PT 14.9 H INR 1.29 H Sodium Potassium Chloride Carbon Dioxide Anion Gap BUN Creatinine Est GFR ( Amer) Est GFR (Non-Af Amer) POC Glucose (mg/dL) 107 Random Glucose Calcium Total Bilirubin Direct Bilirubin AST ALT Alkaline Phosphatase Total Protein Albumin Globulin Albumin/Globulin Ratio Procalcitonin 10/18/17 10/18/17 10/18/17 05:40 08:00 13:11 WBC RBC Hgb Hct MCV MCH MCHC RDW Plt Count MPV PT INR Sodium 135 Potassium 3.9 Chloride 100 Carbon Dioxide 28 Anion Gap 11 BUN 18 Creatinine 0.9 Est GFR ( Amer) > 60 Est GFR (Non-Af Amer) > 60 POC Glucose (mg/dL) 83 Random Glucose 96 Calcium 8.1 L Total Bilirubin 14.4 H Direct Bilirubin 12.9 H AST 84 H ALT 56 Alkaline Phosphatase 763 H Total Protein 6.0 Albumin 2.5 L Globulin 3.6 Albumin/Globulin Ratio 0.7 L Procalcitonin 0.41 10/18/17 10/19/17 17:23 00:11 WBC RBC Hgb Hct MCV MCH MCHC RDW Plt Count MPV PT INR Sodium Potassium Chloride Carbon Dioxide Anion Gap BUN Creatinine Est GFR ( Amer) Est GFR (Non-Af Amer) POC Glucose (mg/dL) 92 55 L Random Glucose Calcium Total Bilirubin Direct Bilirubin AST ALT Alkaline Phosphatase Total Protein Albumin Globulin Albumin/Globulin Ratio Procalcitonin
[2017-10-18] MEDS: Pantoprazole 40 mg EC Tab PO SCH (05:17)
[2017-10-18] MEDS: Insulin Lispro (humaLOG) LOW Coverage SC SCH ×3 (05:32→17:32)
[2017-10-18 05:59] LABS: HEMOGLOBIN 10.8 g/dL (14.0-18.0); MEAN CELL VOLUME 98.4 fl (80.0-105.0); MEAN CORPUSCULAR HEMOGLOBIN 33.5 pg (25.0-35.0); MEAN CORPUSCULAR HGB CONC 34.1 g/dl (31.0-37.0); MEAN PLATELET VOLUME 9.7 fl (7.0-11.0); RBC 3.22 10^6/uL (3.5-6.1); WHITE BLOOD COUNT 21.2 10^3/ul (4.5-11.0)
[2017-10-18] MEDS ORDERED: cefTRIAXone 1 gm 1 GM/100 ML BAG IVPB STA (06:15)
[2017-10-18 06:17] LABS: INR 1.29 (0.93-1.08); PROTHROMBIN TIME 14.9 SECONDS (9.4-12.5)
[2017-10-18 06:31] LABS: ALB/GLOB RATIO 0.7 (1.1-1.8); ALBUMIN 2.5 g/dL (3.0-4.8); ALT/SGPT 56 U/L (7-56); AST/SGOT 84 U/L (17-59); BILIRUBIN,DIRECT 12.9 mg/dL (0.0-0.4); BLOOD UREA NITROGEN 18 mg/dL (7-21); CALCIUM 8.1 mg/dL (8.4-10.5); GFR AFRICAN-AMERICAN > 60; GFR NON-AFRICAN AMERICAN > 60
[2017-10-18] MEDS ORDERED: Barium Sulfate Susp 2.1% w/v, 2.0% w/w 450 mL Bottle PO ONE (07:33)
--- NOTE | 2017-10-18 08:45 | RAD ---
HISTORY: abnl labs COMPARISON: 08/20/2017 FINDINGS: LUNGS: No active pulmonary disease. PLEURA: There is a large right pleural effusion. This is unchanged. There is a small left effusion CARDIOVASCULAR: Normal. OSSEOUS STRUCTURES: No significant abnormalities. VISUALIZED UPPER ABDOMEN: Normal. OTHER FINDINGS: None. IMPRESSION: Large right pleural effusion unchanged
--- NOTE | 2017-10-18 11:22 | CARD ---
APPROVED REPORT EKG Measurement Heart [id number] <Conclusion> Atrial fibrillation Left axis deviation/Possible LAHB Low voltage QRS Inferior infarct, old Possible ASMI, old STTW changes No change
[2017-10-18] MEDS ORDERED: Iohexol 240 (50 ml) ONE (12:26)
[2017-10-18] MEDS ORDERED: Indomethacin 50 MG Suppository PR ONE ×2 (12:27→14:40)
[2017-10-18] MEDS ORDERED: Vancomycin 1gm in NS 250ml 1 GM/250 ML BAG IVPB SCH (12:30)
--- NOTE | 2017-10-18 12:30 | CP.PCM.CON ---
<Celeste Billy - Last Filed: 10/18/17 12:33> History of Present Illness - History of Present Illness History of Present Illness: GI Fellow PGY4 Consult Note This is a 66y male with PMHx pancreatic CA on chemotherapy, s/p gastrojejunostomy due to gastric outlet obstruction by Dr. Dsouza, and pancreatic stent placement by Dr. Dorantes, Afib on Digoxin, CAD s/p stent, DM2 and nephrolithiasis who presents from Dr. Rey's office earlier for his scheduled chemo. Dr. Rey noticed pt was more jaundice, he did not notice, and sent him to the ER. He did not receive his chemotherapy today. Pt's last chemo treatment was last Sunday. He reports shortness of breath with exertion and had a thoracentesis for his pleural effusions. Pt denies abdominal pain, constipation or diarrhea, n/v, fevers/chills. Pt was found to have elevated LFTs, concern for cholangitis and occluded stent. ROS:12-point ROS reviewed and is otherwise unremarkable. PMH: As stated in HPI PSH: gastrojejunostomy, pancreatic stent, cardiac stent SHx: former smoker, ETOH and marijuana user (many years ago) Past Patient History - Infectious Disease Hx of Infectious Diseases: None - Tetanus Immunizations Tetanus Immunization: Unknown - Past Medical History & Family History Past Medical History?: Yes - Past Social History Smoking Status: Former Smoker Alcohol: None Drugs: Denies - CARDIAC Hx Cardiac Disorders: Yes (AFib) Hx Congestive Heart Failure: Yes Hx Hypertension: Yes - PULMONARY Hx Respiratory Disorders: Yes (LUNG NODULE.SMOKED CIGARETTES-QUIT 1973. <PK. SMOKED MARIJUANA.LAST 2014) Hx Pneumonia: Yes - NEUROLOGICAL Hx Neurological Disorder: Yes Hx Dizziness: Yes - HEENT Hx HEENT Problems: No - RENAL Hx Chronic Kidney Disease: Yes Hx Kidney Stones: Yes - ENDOCRINE/METABOLIC Hx Endocrine Disorders: Yes Hx Diabetes Mellitus Type 2: Yes Other/Comment: Pancreatic CA - HEMATOLOGICAL/ONCOLOGICAL Hx Blood Disorders: Yes Hx Anemia: Yes (8-30-16 GI BLEED) Hx Cancer: Yes (Pancreatic Ca) Other/Comment: prbc and ffp blood transfusions - INTEGUMENTARY Hx Dermatological Problems: Yes - MUSCULOSKELETAL/RHEUMATOLOGICAL Hx Musculoskeletal Disorders: No Hx Falls: No - GASTROINTESTINAL Hx Gastrointestinal Disorders: Yes Hx Gastroesophageal Reflux: Yes Hx Ulcer: Yes Other/Comment: esophageal ulcers, esophageal polyp. food bezoar, duodenal gstric outlet obstruction, barretts esophagus, gi bleed, constipation, nausea - GENITOURINARY/GYNECOLOGICAL Hx Genitourinary Disorders: No Hx Prostate Problems: Yes - PSYCHIATRIC Hx Psychophysiologic Disorder: No Hx Emotional Abuse: No Hx Physical Abuse: No - SURGICAL HISTORY Hx Surgeries: Yes Hx Coronary Stent: Yes (03/2013) Other/Comment: pancreatic stent. gastrojejunostomy - ANESTHESIA Hx Anesthesia: Yes Hx Anesthesia Reactions: No Hx Malignant Hyperthermia: No Meds Allergies/Adverse Reactions: Allergies Allergy/AdvReac Type Severity Reaction Status Date / Time iv tape Allergy Mild RASH Uncoded 04/12/17 16:29 - Medications Medications: Current Medications Aspirin (Ecotrin) 81 mg PO DAILY [facility] Calcium Carbonate (Oscal) 500 mg PO DAILY [facility] Digoxin (Lanoxin) 0.25 mg PO 1400 [facility] Furosemide (Lasix) 60 mg PO DAILY [facility] Heparin Sodium (Porcine) (Heparin) 5,000 units SC Q12 [facility] PRN Reason: Protocol Insulin Human Lispro (Humalog Low) 0 units SC Q6 [facility] PRN Reason: Protocol Last Admin: 10/18/17 05:32 Dose: Not Given Ondansetron HCl (Zofran Inj) 4 mg IVP Q4H PRN PRN Reason: Nausea/Vomiting Pantoprazole Sodium (Protonix Ec Tab) 40 mg PO 0600 [facility] Last Admin: 10/18/17 05:17 Dose: 40 mg Tamsulosin HCl (Flomax) 0.4 mg PO DAILY [facility] Physical Exam - Constitutional Appears: No Acute Distress, Older Than Stated Age, Cachectic, Chronically Ill - Head Exam Head Exam: ATRAUMATIC, NORMAL INSPECTION, NORMOCEPHALIC - Eye Exam Eye Exam: EOMI, PERRL, Scleral icterus Pupil Exam: PERRL - ENT Exam ENT Exam: Mucous Membranes Dry - Neck Exam Neck exam: Positive for: Full Rom - Respiratory Exam Respiratory Exam: Decreased Breath Sounds, NORMAL BREATHING PATTERN - Cardiovascular Exam Cardiovascular Exam: REGULAR RHYTHM - GI/Abdominal Exam GI & Abdominal Exam: Normal Bowel Sounds, Soft. absent: Distended, Guarding, Organomegaly, Tenderness - Back Exam Back exam: NORMAL INSPECTION - Neurological Exam Neurological exam: Alert, Oriented x3 - Skin Skin Exam: Dry, Intact, Warm Additional comments: Jaundice Results - Vital Signs Recent Vital Signs: Last Vital Signs Temp 97.6 F 10/18/17 08:38 Pulse 93 H 10/18/17 08:38 Resp 20 10/18/17 08:38 BP 128/79 10/18/17 08:38 Pulse Ox 99 10/18/17 08:38 - Labs Result Diagrams: 10/18/17 05:40 10/18/17 05:40 Labs: Laboratory Results - last 24 hr 10/18/17 10/18/17 10/18/17 05:31 05:40 05:40 WBC 21.2 H RBC 3.22 L Hgb 10.8 L Hct 31.7 L MCV 98.4 MCH 33.5 MCHC 34.1 RDW 26.0 H Plt Count 654 H MPV 9.7 PT 14.9 H INR 1.29 H Sodium Potassium Chloride Carbon Dioxide Anion Gap BUN Creatinine Est GFR ( Amer) Est GFR (Non-Af Amer) POC Glucose (mg/dL) 107 Random Glucose Calcium Total Bilirubin Direct Bilirubin AST ALT Alkaline Phosphatase Total Protein Albumin Globulin Albumin/Globulin Ratio 10/18/17 05:40 WBC RBC Hgb Hct MCV MCH MCHC RDW Plt Count MPV PT INR Sodium 135 Potassium 3.9 Chloride 100 Carbon Dioxide 28 Anion Gap 11 BUN 18 Creatinine 0.9 Est GFR ( Amer) > 60 Est GFR (Non-Af Amer) > 60 POC Glucose (mg/dL) Random Glucose 96 Calcium 8.1 L Total Bilirubin 14.4 H Direct Bilirubin 12.9 H AST 84 H ALT 56 Alkaline Phosphatase 763 H Total Protein 6.0 Albumin 2.5 L Globulin 3.6 Albumin/Globulin Ratio 0.7 L Assessment & Plan - Assessment and Plan (Free Text) Assessment: This is a 66M with pmhx of Pancreatic cancer on chemotherapy presenting with jaundice. 1. Suspected Cholangitis 2. Suspected Stent occlusion 3. Elevated LFTs 4. Leukocytosis 5. Hx of pancreatic cancer on chemotherapy 6. HX of gastric obstruction Plan: Continue supportive care with pain control and antiemetic -IV abx -Blood cultures -NPO -Cancel HIDA -s/p thoracentesis -Monitor LFTs -Plan for emergent ERCP for suspected cholangitis and obstructed stent -Further recommendations following ERCP <Rg Gomez - Last Filed: 10/18/17 12:41> Meds - Medications Medications: Current Medications Aspirin (Ecotrin) 81 mg PO DAILY [facility] Calcium Carbonate (Oscal) 500 mg PO DAILY [facility] Digoxin (Lanoxin) 0.25 mg PO 1400 [facility] Furosemide (Lasix) 60 mg PO DAILY [facility] Heparin Sodium (Porcine) (Heparin) 5,000 units SC Q12 [facility] PRN Reason: Protocol Meropenem (Merrem Iv 1 Gm Premix) 50 mls @ 100 mls/hr IVPB Q12 [facility] PRN Reason: Protocol Vancomycin HCl (Vancomycin 1gm) 1 gm in 250 mls @ 167 mls/hr IVPB Q12H [facility] PRN Reason: Protocol Insulin Human Lispro (Humalog Low) 0 units SC Q6 [facility] PRN Reason: Protocol Last Admin: 10/18/17 05:32 Dose: Not Given Ondansetron HCl (Zofran Inj) 4 mg IVP Q4H PRN PRN Reason: Nausea/Vomiting Pantoprazole Sodium (Protonix Ec Tab) 40 mg PO 0600 [facility] Last Admin: 10/18/17 05:17 Dose: 40 mg Tamsulosin HCl (Flomax) 0.4 mg PO DAILY [facility] Results - Vital Signs Recent Vital Signs: Last Vital Signs Temp 97.6 F 10/18/17 08:38 Pulse 93 H 10/18/17 08:38 Resp 20 10/18/17 08:38 BP 128/79 10/18/17 08:38 Pulse Ox 99 10/18/17 08:38 - Labs Result Diagrams: 10/18/17 05:40 10/18/17 05:40 Labs: Laboratory Results - last 24 hr 10/18/17 10/18/17 10/18/17 05:31 05:40 05:40 WBC 21.2 H RBC 3.22 L Hgb 10.8 L Hct 31.7 L MCV 98.4 MCH 33.5 MCHC 34.1 RDW 26.0 H Plt Count 654 H MPV 9.7 PT 14.9 H INR 1.29 H Sodium Potassium Chloride Carbon Dioxide Anion Gap BUN Creatinine Est GFR ( Amer) Est GFR (Non-Af Amer) POC Glucose (mg/dL) 107 Random Glucose Calcium Total Bilirubin Direct Bilirubin AST ALT Alkaline Phosphatase Total Protein Albumin Globulin Albumin/Globulin Ratio 10/18/17 05:40 WBC RBC Hgb Hct MCV MCH MCHC RDW Plt Count MPV PT INR Sodium 135 Potassium 3.9 Chloride 100 Carbon Dioxide 28 Anion Gap 11 BUN 18 Creatinine 0.9 Est GFR ( Amer) > 60 Est GFR (Non-Af Amer) > 60 POC Glucose (mg/dL) Random Glucose 96 Calcium 8.1 L Total Bilirubin 14.4 H Direct Bilirubin 12.9 H AST 84 H ALT 56 Alkaline Phosphatase 763 H Total Protein 6.0 Albumin 2.5 L Globulin 3.6 Albumin/Globulin Ratio 0.7 L Attending/Attestation - Attestation I have personally seen and examined this patient.: Yes I have fully participated in the care of the patient.: Yes I have reviewed all pertinent clinical information: Yes Notes (Text): 10/18/17 12:40 66 year old male with h/o pancreatic cancer c/b GOO s/p gastrojejunostomy, biliary obstruction s/p IR guided stent placement, on chemo, admitted with biliary obstruction and cholangitis. Recommend urgent ERCP today. NPO. Recommend IV antibiotics. If ERCP not possible due to GOO, then IR PTC may be necessary.
--- NOTE | 2017-10-18 12:38 | US ---
PROCEDURE: Ultrasound guided right thoracentesis. CLINICAL HISTORY: Pancreatic carcinoma. Bilateral pleural effusions with shortness of breath. It is thoracentesis. PHYSICIAN(S): Terrence Dorantes MD. TECHNIQUE: The relative risks and indications of the procedure were explained to the patient and consent obtained. The patient was placed in a sitting position on the stretcher and sonography of the right chest performed. This revealed a large rightpleural effusion. A right posterolateral intercostal approach was selected and the area prepped and draped usual sterile fashion. 1% Xylocaine was used to anesthetize the skin and soft tissues. A 7 Tajik thoracentesis catheter was trocared into the right pleural cavity and 2900 cc of clear bilious yellow fluid fluid aspirated. No labs were sent. IMPRESSION: 1. Ultrasound guided right thoracentesis. 2900 of clear, bilious yellow fluid aspirated
[2017-10-18] MEDS ORDERED: Midazolam 2 MG/2 ML VIAL ONE (14:24)
[2017-10-18] MEDS ORDERED: Etomidate 20 mg/10ml Inj IV ONE (14:24)
[2017-10-18] MEDS ORDERED: Succinylcholine 200 mg/10 ml Inj IV ONE (14:28)
[2017-10-18] MEDS ORDERED: Meropenem IV 1 gm in NS 50 ML IVPB SCH (15:00)
[2017-10-18] MEDS ORDERED: Naloxone 0.4 mg/ml Inj (Adult) ONE (15:43)
[2017-10-18] MEDS ORDERED: Lactated Ringer's 1,000 ML IV SCH (16:15)
[2017-10-18] MEDS: Digoxin 250 mcg (0.25 mg) Tab PO SCH (17:19)
[2017-10-18] MEDS: Meropenem IV 1 gm in NS 50 ML IVPB SCH (22:55)
[2017-10-19] MEDS: Insulin Lispro (humaLOG) LOW Coverage SC SCH ×5 (01:51→23:33)
[2017-10-19] MEDS: Meropenem IV 1 gm in NS 50 ML IVPB SCH ×3 (06:29→21:31)
[2017-10-19] MEDS: Vancomycin 1gm in NS 250ml 1 GM/250 ML BAG IVPB SCH ×2 (06:29→17:26)
[2017-10-19] MEDS: Pantoprazole 40 mg EC Tab PO SCH (06:30)
[2017-10-19 07:06] LABS: HEMOGLOBIN 10.9 g/dL (14.0-18.0); MEAN CELL VOLUME 99.4 fl (80.0-105.0); MEAN CORPUSCULAR HEMOGLOBIN 34.2 pg (25.0-35.0); MEAN CORPUSCULAR HGB CONC 34.4 g/dl (31.0-37.0); MEAN PLATELET VOLUME 10.3 fl (7.0-11.0); RBC 3.19 10^6/uL (3.5-6.1); RED CELL DISTRIBUTION WIDTH 25.5 % (11.5-14.5)
[2017-10-19] MEDS ORDERED: Barium Sulfate Susp 2.1% w/v, 2.0% w/w 450 mL Bottle PO ONE (07:12)
[2017-10-19 07:17] LABS: INR 1.44 (0.93-1.08); PROTHROMBIN TIME 16.7 SECONDS (9.4-12.5)
[2017-10-19 07:42] LABS: ALB/GLOB RATIO 0.7 (1.1-1.8); ALBUMIN 2.3 g/dL (3.0-4.8); ALT/SGPT 55 U/L (7-56); AST/SGOT 86 U/L (17-59); BLOOD UREA NITROGEN 21 mg/dL (7-21); CALCIUM 7.8 mg/dL (8.4-10.5); GFR AFRICAN-AMERICAN > 60; GFR NON-AFRICAN AMERICAN > 60
[2017-10-19 08:09] LABS: WHITE BLOOD COUNT 28.7 10^3/ul (4.5-11.0)
[2017-10-19] MEDS ORDERED: Iohexol 350 MG/100 ML VIAL ONE (09:55)
--- NOTE | 2017-10-19 10:01 | RAD ---
PROCEDURE: Fluoroscopy up to 1 hour HISTORY: ? CBD OBST / ATTEMPTED ERCP COMPARISON: TECHNIQUE: Fluoroscopy was provided in the endoscopy suite. 50.1 seconds of fluoro time were used. Two images were submitted FINDINGS: ERCP was attempted but not successful. A stent is seen in the region of the common duct. IMPRESSION: As above
--- NOTE | 2017-10-19 10:53 | CT ---
PROCEDURE: CT Abdomen and Pelvis with contrast HISTORY: Panc CA. Elevated Bili. ? occluded stent COMPARISON: 04/15/2017 TECHNIQUE: Contrast dose: 100 cc of Omni 350 Radiation dose: Total exam DLP = 776 mGy-cm. This CT exam was performed using one or more of the following dose reduction techniques: Automated exposure control, adjustment of the mA and/or kV according to patient size, and/or use of iterative reconstruction technique. FINDINGS: LOWER THORAX: There is a moderate size right basilar pneumothorax. The patient had recent thoracentesis with drainage of a large effusion. A small effusion remains on the right and a moderate effusion on the left. The findings were discussed with Dr. Terrence Dorantes at 10:45 a.m. 10/19/2017 LIVER: There is intrahepatic ductal dilatation and dilatation of the common duct. The common duct stent is present. There may be some debris near the tip of the stent begins the wall of the duodenum. GALLBLADDER AND BILE DUCTS: The gallbladder is distended PANCREAS: The pancreatic duct is severely dilated. This is unchanged. SPLEEN: Unremarkable. ADRENALS: Unremarkable. No mass. KIDNEYS AND URETERS: Unremarkable. No hydronephrosis. No solid mass. VASCULATURE: Unremarkable. No aortic aneurysm. BOWEL: Unremarkable. No obstruction. No gross mural thickening. APPENDIX: Normal appendix. PERITONEUM: There is a small amount of ascites. LYMPH NODES: Unremarkable. No enlarged lymph nodes. BLADDER: Unremarkable. REPRODUCTIVE: Unremarkable. BONES: No acute fracture. OTHER FINDINGS: None. IMPRESSION: Probable obstruction of the common duct stent. There is intrahepatic ductal dilatation. Right basilar pneumothorax.
--- NOTE | 2017-10-19 11:04 | RAD ---
HISTORY: rt thoracentesis COMPARISON: CT scan same day TECHNIQUE: Chest PA and lateral FINDINGS: LUNGS: There is a moderate size pneumothorax. This could also be seen on the abdominal CT. The finding was communicated to Dr. Chad Dorantes at 10:45 a.m. PLEURA: The edge of the lung is 16 mm from the chest wall in the apex. On the lateral film the edge of the lung is 52 mm from the anterior chest wall. CARDIOVASCULAR: Normal. OSSEOUS STRUCTURES: No significant abnormalities. VISUALIZED UPPER ABDOMEN: Normal. OTHER FINDINGS: None. IMPRESSION: Moderate size right-sided pneumothorax.
--- NOTE | 2017-10-19 11:48 | CP.PCM.PN ---
Addendum entered and electronically signed by Shanae Moore DO 10/19/17 11:52: pt not seen by Dr. Lassiter today, away from room; will see pt tomorrow Original Note: <Shanae Moore - Last Filed: 10/19/17 11:48> Subjective - Date & Time of Evaluation Date of Evaluation: 10/19/17 Time of Evaluation: 07:15 - Subjective Subjective: Pgy4 GI Follow-up Pt seen and examined bedside No complaints hungry denies any abd pain +BM +Void ROS: 10 point ROS conducted neg other than above Objective - Vital Signs/Intake and Output Vital Signs (last 24 hours): Temp Pulse Resp BP Pulse Ox 97.8 F 106 H 20 102/69 100 10/19/17 08:41 10/19/17 08:41 10/19/17 08:41 10/19/17 10:43 10/19/17 08:41 Intake and Output: 10/19/17 10/19/17 06:59 18:59 Intake Total 360 Output Total 500 Balance -140 - Medications Medications: Current Medications Aspirin (Ecotrin) 81 mg PO DAILY [facility]S [facility]CLUDE 234 BEDS AT [facility] Last Admin: 10/19/17 10:44 Dose: 81 mg Calcium Carbonate (Oscal) 500 mg PO DAILY COUNTS INCLUDE 234 BEDS AT THE [facility] Last Admin: 10/19/17 10:44 Dose: 500 mg Digoxin (Lanoxin) 0.25 mg PO 1400 [facility] Last Admin: 10/18/17 17:19 Dose: Not Given Furosemide (Lasix) 60 mg PO DAILY COUNTS INCLUDE 234 BEDS AT THE [facility] Last Admin: 10/19/17 10:43 Dose: 60 mg Heparin Sodium (Porcine) (Heparin) 5,000 units SC Q12 [facility] PRN Reason: Protocol Meropenem (Merrem Iv 1 Gm Premix) 50 mls @ 100 mls/hr IVPB Q8 [facility] PRN Reason: Protocol Last Admin: 10/19/17 06:29 Dose: 100 mls/hr Vancomycin HCl (Vancomycin 1gm) 1 gm in 250 mls @ 167 mls/hr IVPB 0600,1800 [facility] PRN Reason: Protocol Last Admin: 10/19/17 06:29 Dose: 167 mls/hr Insulin Human Lispro (Humalog Low) 0 units SC Q6 [facility] PRN Reason: Protocol Last Admin: 10/19/17 07:54 Dose: Not Given Ondansetron HCl (Zofran Inj) 4 mg IVP Q4H PRN PRN Reason: Nausea/Vomiting Pantoprazole Sodium (Protonix Ec Tab) 40 mg PO 0600 COUNTS INCLUDE 234 BEDS AT [facility] Last Admin: 10/19/17 06:30 Dose: 40 mg Tamsulosin HCl (Flomax) 0.4 mg PO DAILY COUNTS INCLUDE 234 BEDS AT THE [facility] Last Admin: 10/19/17 10:44 Dose: 0.4 mg - Labs Labs: 10/19/17 06:50 10/19/17 06:50 PT 16.7 SECONDS (9.4-12.5) H 10/19/17 06:50 INR 1.44 (0.93-1.08) H 10/19/17 06:50 APTT 182.4 Seconds (25.1-36.5) H* 10/17/17 18:18 - Constitutional Appears: No Acute Distress, Cachectic - Head Exam Head Exam: ATRAUMATIC, NORMOCEPHALIC - Eye Exam Eye Exam: Scleral icterus - ENT Exam ENT Exam: Mucous Membranes Moist, Normal Exam - Neck Exam Neck Exam: Normal Inspection - Respiratory Exam Respiratory Exam: Clear to Ausculation Bilateral, NORMAL BREATHING PATTERN. absent: Rales, Rhonchi, Wheezes, Respiratory Distress - Cardiovascular Exam Cardiovascular Exam: REGULAR RHYTHM, +S1, +S2 - GI/Abdominal Exam GI & Abdominal Exam: Soft, Normal Bowel Sounds. absent: Firm, Guarding, Rigid, Tenderness, Organomegaly - Extremities Exam Extremities Exam: absent: Joint Swelling, Pedal Edema - Neurological Exam Neurological Exam: Alert, Awake, Oriented x3 - Psychiatric Exam Psychiatric exam: Normal Affect, Normal Mood - Skin Skin Exam: Dry, Intact, Warm Additional comments: jaundiced Assessment and Plan - Assessment and Plan (Free Text) Assessment: This is a 66M with pmhx of Pancreatic cancer on chemotherapy presenting with jaundice. S/p attempted ERCP POD #1 gastrojej stent anatamos intact, could not pass duodenal stricture Possible CBD occlussion Duodenal malignant stricture Elevated LFTs Leukocytosis Hx of pancreatic cancer on chemotherapy HX of gastric obstruction Plan: Continue supportive care with pain control and antiemetic -failed ERCP -recommend IR intervention -consult hem/onc -consult palliative care -s/p thoracentesis -Monitor LFTs -no plan for additional GI intervention D/W Dr. Lassiter <Casper Lassiter - Last Filed: 10/20/17 14:21> Objective - Vital Signs/Intake and Output Vital Signs (last 24 hours): Temp Pulse Resp BP Pulse Ox 97.8 F 81 20 115/63 97 10/20/17 08:00 10/20/17 08:00 10/20/17 08:00 10/20/17 09:33 10/20/17 08:00 Intake and Output: 10/20/17 10/20/17 06:59 18:59 Intake Total 2890 Output Total 2420 Balance 470 - Medications Medications: Current Medications Aspirin (Ecotrin) 81 mg PO DAILY COUNTS INCLUDE 234 BEDS AT THE [facility] Last Admin: 10/20/17 09:34 Dose: 81 mg Digoxin (Lanoxin) 0.25 mg PO 1400 COUNTS INCLUDE 234 BEDS AT [facility] Last Admin: 10/19/17 13:21 Dose: 0.25 mg Furosemide (Lasix) 60 mg PO DAILY COUNTS INCLUDE 234 BEDS AT THE [facility] Last Admin: 10/20/17 09:33 Dose: 60 mg Heparin Sodium (Porcine) (Heparin) 5,000 units SC Q12 [facility] PRN Reason: Protocol Meropenem (Merrem Iv 1 Gm Premix) 50 mls @ 100 mls/hr IVPB Q8 [facility] PRN Reason: Protocol Last Admin: 10/20/17 05:27 Dose: 100 mls/hr Vancomycin HCl (Vancomycin 1gm) 1 gm in 250 mls @ 167 mls/hr IVPB 0600,1800 [facility] PRN Reason: Protocol Last Admin: 10/20/17 05:51 Dose: 167 mls/hr Insulin Human Lispro (Humalog Med) 0 units SC ACHS [facility] PRN Reason: Protocol Last Admin: 10/20/17 12:36 Dose: Not Given Ondansetron HCl (Zofran Inj) 4 mg IVP Q4H PRN PRN Reason: Nausea/Vomiting Pantoprazole Sodium (Protonix Ec Tab) 40 mg PO 0600 COUNTS INCLUDE 234 BEDS AT THE [facility] Last Admin: 10/20/17 05:51 Dose: 40 mg Tamsulosin HCl (Flomax) 0.4 mg PO DAILY COUNTS INCLUDE 234 BEDS AT THE [facility] Last Admin: 10/20/17 09:33 Dose: 0.4 mg - Labs Labs: 10/20/17 06:30 10/20/17 06:30 PT 16.9 SECONDS (9.4-12.5) H 10/20/17 06:30 INR 1.46 (0.93-1.08) H 03/17/18 06:30 APTT 38.3 Seconds (25.1-36.5) H 10/20/17 06:30 Attending/Attestation - Attestation I have personally seen and examined this patient.: Yes I have fully participated in the care of the patient.: Yes I have reviewed all pertinent clinical information, including history, physical exam and plan: Yes Notes (Text): 10/20/17 14:18 Patient seen with GI fellow on rounds. This is a 66 yr old M with stage 4 Pancreatic cancer on chemotherapy presenting with jaundice. S/p gastrojejunostomy anatamosis intact, with inability to pass duodenal stricture. Possible CBD occlusion with malignant stricture. No s/s of gastric outlet obstruction. Able to tolerate solids. Was on gemcitabine and nulesta. Will benefit from hematology consult. No further GI intervention required. Will sign off. Discussed with the hospitalist
--- NOTE | 2017-10-19 12:00 | CP.PCM.CON ---
History of Present Illness - History of Present Illness History of Present Illness: Surgery: Dr. Kang CC: R PTX HPI: 66M w. pmh of pancreatic CA, POD#1 U/S guided thoracentesis for recurrent hydro PTX, found to have R sided PTX on AM CXR. Pt has complaints of intermittent SOB requiring NC. Will place pigtail catheter. PMH: pancreatic CA, Afib, CAD, R tinnitus, DM2, and nephrolithiasis PSH: gastrojejunostomy, pancreatic stent, cardiac stent Meds: as per MAR Allergies: tape on IV SHx: former smoker, ETOH Fhx: Non-contributory Review of Systems - Review of Systems All systems: reviewed and no additional remarkable complaints except (HPI) Past Patient History - Infectious Disease Hx of Infectious Diseases: None - Tetanus Immunizations Tetanus Immunization: Unknown - Past Medical History & Family History Past Medical History?: Yes - Past Social History Smoking Status: Former Smoker Alcohol: None Drugs: Denies - CARDIAC Hx Pacemaker: No - PULMONARY Hx Respiratory Disorders: Yes (LUNG NODULE.SMOKED CIGARETTES-QUIT 1973. <PK. SMOKED MARIJUANA.LAST 2014) Hx Pneumonia: Yes - NEUROLOGICAL Hx Paralysis: No - HEENT Hx HEENT Problems: No - RENAL Hx Chronic Kidney Disease: Yes Hx Kidney Stones: Yes - ENDOCRINE/METABOLIC Hx Endocrine Disorders: Yes Hx Diabetes Mellitus Type 2: Yes Other/Comment: Pancreatic CA - HEMATOLOGICAL/ONCOLOGICAL Hx Blood Transfusions: No Hx Blood Transfusion Reaction: No - INTEGUMENTARY Hx Dermatological Problems: Yes - MUSCULOSKELETAL/RHEUMATOLOGICAL Hx Musculoskeletal Disorders: No - GASTROINTESTINAL Hx Gastrointestinal Disorders: Yes Hx Gastroesophageal Reflux: Yes Hx Ulcer: Yes Other/Comment: esophageal ulcers, esophageal polyp. food bezoar, duodenal gstric outlet obstruction, barretts esophagus, gi bleed, constipation, nausea - GENITOURINARY/GYNECOLOGICAL Hx Genitourinary Disorders: No Hx Prostate Problems: Yes - PSYCHIATRIC Hx Emotional Abuse: No Hx Physical Abuse: No Hx Substance Use: Yes (MARIJUANA. LAST SMOKED LAST 2014) - SURGICAL HISTORY Hx Surgeries: Yes - ANESTHESIA Hx Anesthesia Reactions: No Hx Malignant Hyperthermia: No Meds Allergies/Adverse Reactions: Allergies Allergy/AdvReac Type Severity Reaction Status Date / Time iv tape Allergy Mild RASH Uncoded 04/12/17 16:29 - Medications Medications: Current Medications Aspirin (Ecotrin) 81 mg PO DAILY [facility] Last Admin: 10/19/17 10:44 Dose: 81 mg Calcium Carbonate (Oscal) 500 mg PO DAILY [facility] Last Admin: 10/19/17 10:44 Dose: 500 mg Digoxin (Lanoxin) 0.25 mg PO 1400 [facility] Last Admin: 10/18/17 17:19 Dose: Not Given Furosemide (Lasix) 60 mg PO DAILY [facility] Last Admin: 10/19/17 10:43 Dose: 60 mg Heparin Sodium (Porcine) (Heparin) 5,000 units SC Q12 [facility] PRN Reason: Protocol Meropenem (Merrem Iv 1 Gm Premix) 50 mls @ 100 mls/hr IVPB Q8 [facility] PRN Reason: Protocol Last Admin: 10/19/17 06:29 Dose: 100 mls/hr Vancomycin HCl (Vancomycin 1gm) 1 gm in 250 mls @ 167 mls/hr IVPB 0600,1800 [facility] PRN Reason: Protocol Last Admin: 10/19/17 06:29 Dose: 167 mls/hr Insulin Human Lispro (Humalog Low) 0 units SC Q6 [facility] PRN Reason: Protocol Last Admin: 10/19/17 07:54 Dose: Not Given Ondansetron HCl (Zofran Inj) 4 mg IVP Q4H PRN PRN Reason: Nausea/Vomiting Pantoprazole Sodium (Protonix Ec Tab) 40 mg PO 0600 [facility] Last Admin: 10/19/17 06:30 Dose: 40 mg Tamsulosin HCl (Flomax) 0.4 mg PO DAILY [facility] Last Admin: 10/19/17 10:44 Dose: 0.4 mg Physical Exam - Constitutional Appears: Non-toxic, No Acute Distress - Head Exam Head Exam: ATRAUMATIC, NORMOCEPHALIC - Eye Exam Eye Exam: EOMI, Scleral icterus - ENT Exam ENT Exam: Mucous Membranes Moist - Neck Exam Neck exam: Positive for: Full Rom, Normal Inspection - Respiratory Exam Respiratory Exam: NORMAL BREATHING PATTERN. absent: Accessory Muscle Use, Respiratory Distress - GI/Abdominal Exam GI & Abdominal Exam: Soft. absent: Distended, Firm, Guarding, Rebound, Tenderness - Extremities Exam Extremities exam: Positive for: pedal pulses present. Negative for: calf tenderness - Neurological Exam Neurological exam: Alert, Oriented x3 - Skin Additional comments: jaundice Results - Vital Signs Recent Vital Signs: Last Vital Signs Temp 97.8 F 10/19/17 08:41 Pulse 106 H 10/19/17 08:41 Resp 20 10/19/17 08:41 BP 102/69 10/19/17 10:43 Pulse Ox 100 10/19/17 08:41 - Labs Result Diagrams: 10/19/17 06:50 10/19/17 06:50 Labs: Laboratory Results - last 24 hr 10/18/17 10/18/17 10/18/17 08:00 13:11 17:23 WBC RBC Hgb Hct MCV MCH MCHC RDW Plt Count MPV PT INR Sodium Potassium Chloride Carbon Dioxide Anion Gap BUN Creatinine Est GFR ( Amer) Est GFR (Non-Af Amer) POC Glucose (mg/dL) 83 92 Random Glucose Calcium Total Bilirubin AST ALT Alkaline Phosphatase Total Protein Albumin Globulin Albumin/Globulin Ratio Procalcitonin 0.41 10/19/17 10/19/17 10/19/17 00:11 01:36 06:21 WBC RBC Hgb Hct MCV MCH MCHC RDW Plt Count MPV PT INR Sodium Potassium Chloride Carbon Dioxide Anion Gap BUN Creatinine Est GFR ( Amer) Est GFR (Non-Af Amer) POC Glucose (mg/dL) 55 L 120 H 103 Random Glucose Calcium Total Bilirubin AST ALT Alkaline Phosphatase Total Protein Albumin Globulin Albumin/Globulin Ratio Procalcitonin 10/19/17 10/19/17 10/19/17 06:50 06:50 06:50 WBC 28.7 H* D RBC 3.19 L Hgb 10.9 L Hct 31.7 L MCV 99.4 MCH 34.2 MCHC 34.4 RDW 25.5 H Plt Count 607 H MPV 10.3 PT 16.7 H INR 1.44 H Sodium 135 Potassium 4.4 Chloride 100 Carbon Dioxide 26 Anion Gap 12 BUN 21 Creatinine 1.1 Est GFR ( Amer) > 60 Est GFR (Non-Af Amer) > 60 POC Glucose (mg/dL) Random Glucose 98 Calcium 7.8 L Total Bilirubin 15.5 H AST 86 H ALT 55 Alkaline Phosphatase 582 H D Total Protein 5.5 L Albumin 2.3 L Globulin 3.2 Albumin/Globulin Ratio 0.7 L Procalcitonin 10/19/17 11:56 WBC RBC Hgb Hct MCV MCH MCHC RDW Plt Count MPV PT INR Sodium Potassium Chloride Carbon Dioxide Anion Gap BUN Creatinine Est GFR ( Amer) Est GFR (Non-Af Amer) POC Glucose (mg/dL) 74 Random Glucose Calcium Total Bilirubin AST ALT Alkaline Phosphatase Total Protein Albumin Globulin Albumin/Globulin Ratio Procalcitonin - Imaging and Cardiology Chest x-ray Status: Image reviewed by me, Report reviewed by me Assessment & Plan - Assessment and Plan (Free Text) Assessment: 66M w. R PTX -pigtail catheter placed at bedside -keep to CT to suction -daily CXR -d/w attending Leah PGY3 Procedures - Chest Tube Chest Tube Location: Mid-Axillary Right Size of Tube (cm): 20 Chest Tube Procedure: Povidone-Iodine 1% Tube Sutured to Skin: Yes Sterile Dressing Applied: Yes Anesthesia: Lidocaine 1% Volume Anesthetic (mls): 5 Incision Made With: #11 blade Post Procedure: sutured to skin, sterile dressing applied [place]: Yes Tube Drainage: fluid (serosang) Amount of Initial Drainage: 600 Post Procedure CXR?: Yes Patient Tolerated Procedure: Yes
--- NOTE | 2017-10-19 12:21 | RAD ---
HISTORY: R chest tube placement COMPARISON: Earlier same day FINDINGS: LUNGS: There is a small caliber chest tube in the right lower lobe. The lung has been re-expanded PLEURA: No significant pleural effusion identified, no pneumothorax apparent. CARDIOVASCULAR: Normal. OSSEOUS STRUCTURES: No significant abnormalities. VISUALIZED UPPER ABDOMEN: Normal. OTHER FINDINGS: None. IMPRESSION: There is a small caliber chest tube in the right lower lobe. The lung has been re-expanded
[2017-10-19] MEDS: Digoxin 250 mcg (0.25 mg) Tab PO SCH (13:21)
--- NOTE | 2017-10-19 13:55 | CP.PCM.PN ---
<Lavonne Herbert - Last Filed: 10/19/17 15:08> Subjective - Date & Time of Evaluation Date of Evaluation: 10/19/17 Time of Evaluation: 07:30 - Subjective Subjective: Lavonne Herbert DO PGY1 - IM Progress Note Patient seen and examined at bedside. Yesterday, patient went for thoracentesis , which he tolerated well, and now feels like he is breathing easier. He also went for urgent ERCP for suspected cholangitis, which was aborted because the scope could not be passed beyond a narrowing in the duodenum, and the patient reportedly did not tolerate the procedure well. Today, patient feels well overall, and is requested advancing his diet. He denies any chest pain, though has some minimal amount of pain over the site of the thoracentesis He denies shortness of breath, fever, chills, abdominal pain, nausea, vomiting, diarrhea, constipation, pruritis. Objective - Vital Signs/Intake and Output Vital Signs (last 24 hours): Temp Pulse Resp BP Pulse Ox 97.8 F 106 H 20 102/69 100 10/19/17 08:41 10/19/17 08:41 10/19/17 08:41 10/19/17 10:43 10/19/17 08:41 Intake and Output: 10/19/17 10/19/17 06:59 18:59 Intake Total 360 Output Total 500 Balance -140 - Medications Medications: Current Medications Aspirin (Ecotrin) 81 mg PO DAILY [facility] Last Admin: 10/19/17 10:44 Dose: 81 mg Calcium Carbonate (Oscal) 500 mg PO DAILY [facility] Last Admin: 10/19/17 10:44 Dose: 500 mg Digoxin (Lanoxin) 0.25 mg PO 1400 [facility] Last Admin: 10/19/17 13:21 Dose: 0.25 mg Furosemide (Lasix) 60 mg PO DAILY [facility] Last Admin: 10/19/17 10:43 Dose: 60 mg Heparin Sodium (Porcine) (Heparin) 5,000 units SC Q12 [facility] PRN Reason: Protocol Meropenem (Merrem Iv 1 Gm Premix) 50 mls @ 100 mls/hr IVPB Q8 [facility] PRN Reason: Protocol Last Admin: 10/19/17 13:21 Dose: 100 mls/hr Vancomycin HCl (Vancomycin 1gm) 1 gm in 250 mls @ 167 mls/hr IVPB 0600,1800 [facility] PRN Reason: Protocol Last Admin: 10/19/17 06:29 Dose: 167 mls/hr Insulin Human Lispro (Humalog Low) 0 units SC Q6 [facility] PRN Reason: Protocol Last Admin: 10/19/17 13:06 Dose: Not Given Ondansetron HCl (Zofran Inj) 4 mg IVP Q4H PRN PRN Reason: Nausea/Vomiting Pantoprazole Sodium (Protonix Ec Tab) 40 mg PO 0600 [facility] Last Admin: 10/19/17 06:30 Dose: 40 mg Tamsulosin HCl (Flomax) 0.4 mg PO DAILY [facility] Last Admin: 10/19/17 10:44 Dose: 0.4 mg - Labs Labs: 10/19/17 06:50 10/19/17 06:50 PT 16.7 SECONDS (9.4-12.5) H 10/19/17 06:50 INR 1.44 (0.93-1.08) H 10/19/17 06:50 APTT 182.4 Seconds (25.1-36.5) H* 10/17/17 18:18 - Constitutional Appears: Non-toxic, No Acute Distress, Chronically Ill - Head Exam Head Exam: ATRAUMATIC, NORMOCEPHALIC - Eye Exam Eye Exam: EOMI, PERRL, Scleral icterus - ENT Exam ENT Exam: Mucous Membranes Moist - Neck Exam Neck Exam: Full ROM, Normal Inspection - Respiratory Exam Respiratory Exam: Clear to Ausculation Bilateral, NORMAL BREATHING PATTERN Additional comments: Breath sounds audible in all lung oliva Right chest port - Cardiovascular Exam Cardiovascular Exam: REGULAR RHYTHM, +S1, +S2 - GI/Abdominal Exam GI & Abdominal Exam: Soft, Normal Bowel Sounds. absent: Distended, Firm, Guarding, Rigid, Tenderness - Extremities Exam Extremities Exam: Pedal Edema. absent: Calf Tenderness Additional comments: Anasarca, with 1-2+ pitting edema in all four extremities, diffusely - Neurological Exam Neurological Exam: Alert, Awake, Oriented x3 Neuro motor strength exam: Left Upper Extremity: 5, Right Upper Extremity: 5, Left Lower Extremity: 5, Right Lower Extremity: 5 - Psychiatric Exam Psychiatric exam: Normal Affect, Normal Mood - Skin Skin Exam: Dry, Intact Additional comments: Jaundice Assessment and Plan - Assessment and Plan (Free Text) Assessment: 66yo M PMH pancreatic CA, Afib (on Dig), CAD, R tinnitus, DM2, nephrolithiasis who presents after being seen by Dr. Rey and told to come in for his jaundice. s/p thoracentesis 10/18. s/p urgent ERCP attempted 10/18, failed to pass scope beyond duodenum. Plan: 1. Hyperbilirubinemia 2/2 likely obstructed CBD stent with possible cholangitis - Patient had CT A/P that showed obstructed CBD stent - s/p attempted urgent ERCP POD1, failed to pass scope beyond narrowing in duodenum, failed to cannulate bile ducts - IR consulted for possible percutaneous drainage; ordered CT A/P with PO and IV contrast per IR - T bili elevated, trending up; continue to monitor - No signs of encephalopathy at this time - NS @ 100 - Zofran PRN 2. Hx Pancreatic cancer - Dr. Rey consulted - monitor for any changes - no significant abdominal distention at this time 3. Leukocytosis likely reactive 2/2 chemo vs cholangitis vs pneumonia - Pt currently afebrile, no abdominal pain; no cough or shortness of breath - Blood culture shows no growth after 24 hours; UA and UCx pending - CXR showed no changes from prior scans; CT chest showed RML and RLL consolidation vs atalectasis with associated large right pleural effusion - Empiric IV abx started yesterday; continue until source control is achieved - ID consult requested, appreciate recs 4. Hypocalcemia - Calcium corrected for hypoalbuminemia is normal - Discontinue oscal - Recheck with AM labs 5. Hx GERD and gastric obstruction w/ gastric erosions and a prior GI bleed s/p emergent gastrojejunostomy and enteroenterostomy in 03/2016 - PTX for GI ppx - monitor H/H 6. Hx Afib - cont Digoxin 7. Hx DM? - Blood sugar well controlled - last A1C 7.5 from 04/2017; repeat A1c pending - ISS low scale; has not required any coverage so far 8. Hx CAD s/p stent - ASA 81mg daily 9. BPH - Flomax home dose GI Ppx: Protonix DVT Ppx: aPTT remains elevated, INR elevated; avoid anticoagulants Patient was seen, examined and discussed with attending, Dr. Batista <Jessica Batista - Last Filed: 10/19/17 16:18> Objective - Vital Signs/Intake and Output Vital Signs (last 24 hours): Temp Pulse Resp BP Pulse Ox 97.8 F 106 H 20 102/69 100 10/19/17 08:41 10/19/17 08:41 10/19/17 08:41 10/19/17 10:43 10/19/17 08:41 Intake and Output: 10/19/17 10/19/17 06:59 18:59 Intake Total 360 700 Output Total 500 500 Balance -140 200 - Medications Medications: Current Medications Aspirin (Ecotrin) 81 mg PO DAILY [facility] Last Admin: 10/19/17 10:44 Dose: 81 mg Digoxin (Lanoxin) 0.25 mg PO 1400 [facility] Last Admin: 10/19/17 13:21 Dose: 0.25 mg Furosemide (Lasix) 60 mg PO DAILY [facility] Last Admin: 10/19/17 10:43 Dose: 60 mg Heparin Sodium (Porcine) (Heparin) 5,000 units SC Q12 [facility] PRN Reason: Protocol Meropenem (Merrem Iv 1 Gm Premix) 50 mls @ 100 mls/hr IVPB Q8 [facility] PRN Reason: Protocol Last Admin: 10/19/17 13:21 Dose: 100 mls/hr Vancomycin HCl (Vancomycin 1gm) 1 gm in 250 mls @ 167 mls/hr IVPB 0600,1800 [facility] PRN Reason: Protocol Last Admin: 10/19/17 06:29 Dose: 167 mls/hr Insulin Human Lispro (Humalog Low) 0 units SC Q6 [facility] PRN Reason: Protocol Last Admin: 10/19/17 13:06 Dose: Not Given Ondansetron HCl (Zofran Inj) 4 mg IVP Q4H PRN PRN Reason: Nausea/Vomiting Pantoprazole Sodium (Protonix Ec Tab) 40 mg PO 0600 [facility] Last Admin: 10/19/17 06:30 Dose: 40 mg Tamsulosin HCl (Flomax) 0.4 mg PO DAILY [facility] Last Admin: 10/19/17 10:44 Dose: 0.4 mg - Labs Labs: 10/19/17 06:50 10/19/17 06:50 PT 16.7 SECONDS (9.4-12.5) H 10/19/17 06:50 INR 1.44 (0.93-1.08) H 10/19/17 06:50 APTT 182.4 Seconds (25.1-36.5) H* 10/17/17 18:18 Attending/Attestation - Attestation I have personally seen and examined this patient.: Yes I have fully participated in the care of the patient.: Yes I have reviewed all pertinent clinical information, including history, physical exam and plan: Yes Notes (Text): 10/19/17 16:07 66 year old male with past medical history of pancreatic cancer, afib, CAD, and diabetes who presented with complaint of jaundice. He was found to have hyperbilirubinemia with possible obstructed CBD stent, possible cholangitis and also had pleural effusion. He was seen by GI who attempted ERCP, however failed attempt. Plan is for IR percutaneous drainage on Sunday. Leukocytosis possibly secondary to above. Continue with iv antibiotics. He is also s/p thoracocentesis yesterday. Follow up CXR showed pneumothorax for which chest tube is placed. Follow up CXR showed re-expansion. Continue with chest tube care as per surgery. Jessica Batista MD Hospitalist.
[2017-10-19 18:55] LABS: BODY FLUID TYPE PLEURAL
--- NOTE | 2017-10-19 19:04 | CP.PCM.CON ---
History of Present Illness - History of Present Illness History of Present Illness: 66 year old male with PMH of pancreatic cancer with gastric outlet obstruction S /P gastrojejunostomy, no chemotherapy, S/P pancreatic stent placement, atrial fibrillation, CAD S/P PCI, DM, history of nephrolithiasis [place] [facility] [place] was noted to be more jaundiced during his last chemotherapy session this week. He complains of generalized weakness and some abdominal pain but denies fever or chills, has some nausea but no vomiting, no chest pain, no headache or dizziness, no chest pain, no SOB, no headache or dizziness, no diarrhea, no dysuria, no cough or colds. He underwent ERCP but was unsuccessful in cannulating the CBD. Infectious Diseases consult is requested to further evaluate and manage. Review of Systems - Review of Systems All systems: reviewed and no additional remarkable complaints except (as per HPI ) Past Patient History - Infectious Disease Hx of Infectious Diseases: None - Tetanus Immunizations Tetanus Immunization: Unknown - Past Medical History & Family History Past Medical History?: Yes - Past Social History Smoking Status: Former Smoker Alcohol: None Drugs: Denies - CARDIAC Hx Pacemaker: No - PULMONARY Hx Respiratory Disorders: Yes (LUNG NODULE.SMOKED CIGARETTES-QUIT 1973. <PK. SMOKED MARIJUANA.LAST 2014) Hx Pneumonia: Yes - NEUROLOGICAL Hx Paralysis: No - HEENT Hx HEENT Problems: No - RENAL Hx Chronic Kidney Disease: Yes Hx Kidney Stones: Yes - ENDOCRINE/METABOLIC Hx Endocrine Disorders: Yes Hx Diabetes Mellitus Type 2: Yes Other/Comment: Pancreatic CA - HEMATOLOGICAL/ONCOLOGICAL Hx Blood Transfusions: No Hx Blood Transfusion Reaction: No - INTEGUMENTARY Hx Dermatological Problems: Yes - MUSCULOSKELETAL/RHEUMATOLOGICAL Hx Musculoskeletal Disorders: No - GASTROINTESTINAL Hx Gastrointestinal Disorders: Yes Hx Gastroesophageal Reflux: Yes Hx Ulcer: Yes Other/Comment: esophageal ulcers, esophageal polyp. food bezoar, duodenal gstric outlet obstruction, barretts esophagus, gi bleed, constipation, nausea - GENITOURINARY/GYNECOLOGICAL Hx Genitourinary Disorders: No Hx Prostate Problems: Yes - PSYCHIATRIC Hx Emotional Abuse: No Hx Physical Abuse: No Hx Substance Use: Yes (MARIJUANA. LAST SMOKED LAST 2014) - SURGICAL HISTORY Hx Surgeries: Yes - ANESTHESIA Hx Anesthesia Reactions: No Hx Malignant Hyperthermia: No Meds Allergies/Adverse Reactions: Allergies Allergy/AdvReac Type Severity Reaction Status Date / Time iv tape Allergy Mild RASH Uncoded 04/12/17 16:29 - Medications Medications: Current Medications Aspirin (Ecotrin) 81 mg PO DAILY [facility] Last Admin: 10/18/17 13:35 Dose: Not Given Calcium Carbonate (Oscal) 500 mg PO DAILY [facility]S [facility]CLUDE 234 BEDS AT [facility] Last Admin: 10/18/17 13:37 Dose: Not Given Digoxin (Lanoxin) 0.25 mg PO 1400 [facility] Furosemide (Lasix) 60 mg PO DAILY [facility]S [facility] 234 BEDS AT THE [facility] Last Admin: 10/18/17 13:36 Dose: Not Given Heparin Sodium (Porcine) (Heparin) 5,000 units SC Q12 COUNTS INCLUDE 234 BEDS AT THE [facility] PRN Reason: Protocol Vancomycin HCl (Vancomycin 1gm) 1 gm in 250 mls @ 167 mls/hr IVPB Q12H [facility] PRN Reason: Protocol Lactated Ringer's (Lactated Ringer's) 1,000 mls @ 75 mls/hr IV .[id number] COUNTS INCLUDE 234 BEDS AT THE [facility] Stop: 10/18/17 18:16 Meropenem (Merrem Iv 1 Gm Premix) 50 mls @ 100 mls/hr IVPB Q8 COUNTS [facility]CLUDE 234 BEDS AT THE [facility] PRN Reason: Protocol Insulin Human Lispro (Humalog Low) 0 units SC Q6 COUNTS INCLUDE 234 BEDS AT THE [facility] PRN Reason: Protocol Last Admin: 10/18/17 13:36 Dose: Not Given Ondansetron HCl (Zofran Inj) 4 mg IVP Q4H PRN PRN Reason: Nausea/Vomiting Pantoprazole Sodium (Protonix Ec Tab) 40 mg PO 0600 [facility] 234 BEDS AT [facility] Last Admin: 10/18/17 05:17 Dose: 40 mg Tamsulosin HCl (Flomax) 0.4 mg PO DAILY [facility]CLUDE 234 BEDS AT [facility] Last Admin: 10/18/17 13:35 Dose: Not Given Physical Exam - Constitutional Appears: Cachectic, Chronically Ill - Head Exam Head Exam: NORMAL INSPECTION - Eye Exam Eye Exam: Scleral icterus - ENT Exam ENT Exam: Mucous Membranes Moist - Neck Exam Neck exam: Negative for: Meningismus - Respiratory Exam Respiratory Exam: Decreased Breath Sounds - Cardiovascular Exam Cardiovascular Exam: +S1, +S2 - GI/Abdominal Exam GI & Abdominal Exam: Soft. absent: Tenderness Results - Vital Signs Recent Vital Signs: Last Vital Signs Temp 97.5 F L 10/18/17 12:41 Pulse 99 H 10/18/17 12:41 Resp 24 10/18/17 12:41 BP 111/77 10/18/17 12:41 Pulse Ox 96 10/18/17 14:28 - Labs Result Diagrams: 10/19/17 06:50 10/19/17 06:50 Labs: Laboratory Results - last 24 hr 10/18/17 10/18/17 10/18/17 05:31 05:40 05:40 WBC 21.2 H RBC 3.22 L Hgb 10.8 L Hct 31.7 L MCV 98.4 MCH 33.5 MCHC 34.1 RDW 26.0 H Plt Count 654 H MPV 9.7 PT 14.9 H INR 1.29 H Sodium Potassium Chloride Carbon Dioxide Anion Gap BUN Creatinine Est GFR ( Amer) Est GFR (Non-Af Amer) POC Glucose (mg/dL) 107 Random Glucose Calcium Total Bilirubin Direct Bilirubin AST ALT Alkaline Phosphatase Total Protein Albumin Globulin Albumin/Globulin Ratio Procalcitonin 10/18/17 10/18/17 10/18/17 05:40 08:00 13:11 WBC RBC Hgb Hct MCV MCH MCHC RDW Plt Count MPV PT INR Sodium 135 Potassium 3.9 Chloride 100 Carbon Dioxide 28 Anion Gap 11 BUN 18 Creatinine 0.9 Est GFR ( Amer) > 60 Est GFR (Non-Af Amer) > 60 POC Glucose (mg/dL) 83 Random Glucose 96 Calcium 8.1 L Total Bilirubin 14.4 H Direct Bilirubin 12.9 H AST 84 H ALT 56 Alkaline Phosphatase 763 H Total Protein 6.0 Albumin 2.5 L Globulin 3.6 Albumin/Globulin Ratio 0.7 L Procalcitonin 0.41 Assessment & Plan - Assessment and Plan (Free Text) Plan: Assessment Systemic inflammatory response syndrome, R/O severe sepsis due to acute cholangitis in this patient with pancreatic cancer with gastric outlet obstruction S/P gastrojejunostomy, on chemotherapy, S/P pancreatic stent placement atrial fibrillation CAD S/P PCI DM history of nephrolithiasis Plan Started the patient on Vancomycin and Merrem pending blood cx; also awaiting plan for IR-guided biliary drainage, with bile fluid cx will monitor clinically overall prognosis is poor
[2017-10-19 20:26] LABS: BF GROSS APPEARANCE SL CLOUDY (CLEAR)
[2017-10-19 20:27] LABS: BODY FLUID MONO/MACROPHAGE 9 % (0-0); BODY FLUID TOTAL COUNT 100 (0-0)
[2017-10-20] MEDS: Meropenem IV 1 gm in NS 50 ML IVPB SCH ×3 (05:27→21:56)
[2017-10-20] MEDS: Pantoprazole 40 mg EC Tab PO SCH (05:51)
[2017-10-20] MEDS: Vancomycin 1gm in NS 250ml 1 GM/250 ML BAG IVPB SCH ×2 (05:51→17:10)
[2017-10-20] MEDS: Insulin Lispro (humaLOG) LOW Coverage SC SCH (06:27)
[2017-10-20 07:31] LABS: HEMOGLOBIN 9.6 g/dL (14.0-18.0); MEAN CELL VOLUME 96.9 fl (80.0-105.0); MEAN CORPUSCULAR HEMOGLOBIN 33.2 pg (25.0-35.0); MEAN CORPUSCULAR HGB CONC 34.3 g/dl (31.0-37.0); MEAN PLATELET VOLUME 9.8 fl (7.0-11.0); RBC 2.89 10^6/uL (3.5-6.1); RED CELL DISTRIBUTION WIDTH 25.2 % (11.5-14.5); WHITE BLOOD COUNT 17.5 10^3/ul (4.5-11.0)
[2017-10-20 07:41] LABS: INR 1.46 (0.93-1.08); PARTIAL THROMBOPLASTIN TIME 38.3 Seconds (25.1-36.5); PROTHROMBIN TIME 16.9 SECONDS (9.4-12.5)
[2017-10-20 07:42] LABS: ALT/SGPT 53 U/L (7-56); AST/SGOT 87 U/L (17-59); BLOOD UREA NITROGEN 23 mg/dL (7-21); CALCIUM 7.9 mg/dL (8.4-10.5); GFR AFRICAN-AMERICAN > 60; GFR NON-AFRICAN AMERICAN > 60
[2017-10-20 07:44] LABS: ALB/GLOB RATIO 0.7 (1.1-1.8); ALBUMIN 2.3 g/dL (3.0-4.8)
--- NOTE | 2017-10-20 08:55 | CP.PCM.PN ---
Subjective - Date & Time of Evaluation Date of Evaluation: 10/20/17 Time of Evaluation: 08:52 - Subjective Subjective: Surgery: Dr. Kang Pt seen and examined. Resting comfortably in bed. Breathing improved. Mild discomfort at CT site. Objective - Vital Signs/Intake and Output Vital Signs (last 24 hours): Temp Pulse Resp BP Pulse Ox 97.8 F 97 H 20 102/71 100 10/19/17 16:00 10/19/17 16:00 10/19/17 16:00 10/19/17 16:00 10/19/17 16:00 Intake and Output: 10/20/17 10/20/17 06:59 18:59 Intake Total 2890 Output Total 2420 Balance 470 - Medications Medications: Current Medications Aspirin (Ecotrin) 81 mg PO DAILY [facility] Last Admin: 10/19/17 10:44 Dose: 81 mg Digoxin (Lanoxin) 0.25 mg PO 1400 [facility] Last Admin: 10/19/17 13:21 Dose: 0.25 mg Furosemide (Lasix) 60 mg PO DAILY [facility] Last Admin: 10/19/17 10:43 Dose: 60 mg Heparin Sodium (Porcine) (Heparin) 5,000 units SC Q12 [facility] PRN Reason: Protocol Meropenem (Merrem Iv 1 Gm Premix) 50 mls @ 100 mls/hr IVPB Q8 [facility] PRN Reason: Protocol Last Admin: 10/20/17 05:27 Dose: 100 mls/hr Vancomycin HCl (Vancomycin 1gm) 1 gm in 250 mls @ 167 mls/hr IVPB 0600,1800 [facility] PRN Reason: Protocol Last Admin: 10/20/17 05:51 Dose: 167 mls/hr Insulin Human Lispro (Humalog Low) 0 units SC Q6 [facility] PRN Reason: Protocol Last Admin: 10/20/17 06:27 Dose: Not Given Ondansetron HCl (Zofran Inj) 4 mg IVP Q4H PRN PRN Reason: Nausea/Vomiting Pantoprazole Sodium (Protonix Ec Tab) 40 mg PO 0600 [facility] Last Admin: 10/20/17 05:51 Dose: 40 mg Tamsulosin HCl (Flomax) 0.4 mg PO DAILY [facility] Last Admin: 10/19/17 10:44 Dose: 0.4 mg - Labs Labs: 10/20/17 06:30 10/20/17 06:30 PT 16.9 SECONDS (9.4-12.5) H 10/20/17 06:30 INR 1.46 (0.93-1.08) H 10/20/17 06:30 APTT 38.3 Seconds (25.1-36.5) H 10/20/17 06:30 - Constitutional Appears: Non-toxic, No Acute Distress, Cachectic - Head Exam Head Exam: ATRAUMATIC, NORMOCEPHALIC - Eye Exam Eye Exam: EOMI, Scleral icterus - ENT Exam ENT Exam: Mucous Membranes Moist - Neck Exam Neck Exam: Full ROM - Respiratory Exam Respiratory Exam: NORMAL BREATHING PATTERN. absent: Accessory Muscle Use, Respiratory Distress Additional comments: R side pigtail in place, tidling, no air leak - GI/Abdominal Exam GI & Abdominal Exam: Soft. absent: Tenderness - Extremities Exam Extremities Exam: absent: Calf Tenderness, Pedal Edema - Neurological Exam Neurological Exam: Alert, Awake, Oriented x3 - Psychiatric Exam Psychiatric exam: Normal Affect, Normal Mood Assessment and Plan - Assessment and Plan (Free Text) Assessment: 66M w. recurrent R side hydro PTX Plan: -Pig tail chest tube: 1400cc/24 hr, serosang, no air leak, tidling, keep to suction -F/U AM CXR -d/w attending Zemaitis PGY3
[2017-10-20] MEDS: Insulin Lispro (humaLOG) MEDIUM Coverage SC SCH ×3 (12:36→21:55)
[2017-10-20] MEDS: Digoxin 250 mcg (0.25 mg) Tab PO SCH (15:43)
--- NOTE | 2017-10-20 16:14 | CP.PCM.PN ---
<Lavonne Herbert - Last Filed: 10/20/17 16:07> Subjective - Date & Time of Evaluation Date of Evaluation: 10/20/17 Time of Evaluation: 07:30 - Subjective Subjective: Lavonne Herbert DO PGY1 - IM Progress Note Patient seen and examined at bedside. Per nursing staff, no acute events overnight. Patient was noted to have pneumothorax yesterday, s/p thoracentesis, and had chest tube placed, which he tolerated well. He denies any chest pain, shortness of breath, fever, chills, abdominal pain, nausea, vomiting, diarrhea, constipation, pruritis. Objective - Vital Signs/Intake and Output Vital Signs (last 24 hours): Temp Pulse Resp BP Pulse Ox 97.8 F 81 20 115/63 97 10/20/17 08:00 10/20/17 08:00 10/20/17 08:00 10/20/17 09:33 10/20/17 08:00 Intake and Output: 10/20/17 10/20/17 06:59 18:59 Intake Total 2890 Output Total 2420 Balance 470 - Medications Medications: Current Medications Aspirin (Ecotrin) 81 mg PO DAILY [facility] Last Admin: 10/20/17 09:34 Dose: 81 mg Digoxin (Lanoxin) 0.25 mg PO 1400 [facility] Last Admin: 10/20/17 15:43 Dose: 0.25 mg Enoxaparin Sodium (Lovenox) 40 mg SC DAILY [facility] PRN Reason: Protocol Furosemide (Lasix) 60 mg PO DAILY [facility] Last Admin: 10/20/17 09:33 Dose: 60 mg Meropenem (Merrem Iv 1 Gm Premix) 50 mls @ 100 mls/hr IVPB Q8 [facility] PRN Reason: Protocol Last Admin: 10/20/17 15:43 Dose: 100 mls/hr Vancomycin HCl (Vancomycin 1gm) 1 gm in 250 mls @ 167 mls/hr IVPB 0600,1800 [facility] PRN Reason: Protocol Last Admin: 10/20/17 05:51 Dose: 167 mls/hr Insulin Human Lispro (Humalog Med) 0 units SC ACHS [facility] PRN Reason: Protocol Last Admin: 10/20/17 12:36 Dose: Not Given Ondansetron HCl (Zofran Inj) 4 mg IVP Q4H PRN PRN Reason: Nausea/Vomiting Pantoprazole Sodium (Protonix Ec Tab) 40 mg PO 0600 [facility] Last Admin: 10/20/17 05:51 Dose: 40 mg Tamsulosin HCl (Flomax) 0.4 mg PO DAILY [facility] Last Admin: 10/20/17 09:33 Dose: 0.4 mg - Labs Labs: 10/20/17 06:30 10/20/17 06:30 PT 16.9 SECONDS (9.4-12.5) H 10/20/17 06:30 INR 1.46 (0.93-1.08) H 10/20/17 06:30 APTT 38.3 Seconds (25.1-36.5) H 10/20/17 06:30 - Additional Findings Additional findings: - Constitutional Appears: Non-toxic, No Acute Distress, Chronically Ill - Head Exam Head Exam: ATRAUMATIC, NORMOCEPHALIC - Eye Exam Eye Exam: EOMI, PERRL, Scleral icterus - ENT Exam ENT Exam: Mucous Membranes Moist - Neck Exam Neck Exam: Full ROM, Normal Inspection - Respiratory Exam Respiratory Exam: Clear to Ausculation Bilateral, NORMAL BREATHING PATTERN Additional comments: Breath sounds audible in all lung oliva Right chest port Chest tube draining clear serous fluid - Cardiovascular Exam Cardiovascular Exam: REGULAR RHYTHM, +S1, +S2 - GI/Abdominal Exam GI & Abdominal Exam: Soft, Normal Bowel Sounds. absent: Distended, Firm, Guarding, Rigid, Tenderness - Extremities Exam Extremities Exam: Pedal Edema. absent: Calf Tenderness Additional comments: Anasarca, with 1-2+ pitting edema in all four extremities, diffusely - Neurological Exam Neurological Exam: Alert, Awake, Oriented x3 Neuro motor strength exam: Left Upper Extremity: 5, Right Upper Extremity: 5, Left Lower Extremity: 5, Right Lower Extremity: 5 - Psychiatric Exam Psychiatric exam: Normal Affect, Normal Mood - Skin Skin Exam: Dry, Intact Additional comments: Jaundice Assessment and Plan - Assessment and Plan (Free Text) Assessment: 66yo M PMH pancreatic CA, Afib (on Dig), CAD, R tinnitus, DM2, nephrolithiasis who presents after being seen by Dr. Rey and told to come in for his jaundice. s/p thoracentesis 10/18 with subsequent pneumothorax, now s/p chest tube placement draining serious fluid. s/p urgent ERCP attempted 10/18, failed to pass scope beyond duodenum. Plan: 1. Hyperbilirubinemia 2/2 likely obstructed CBD stent with possible cholangitis - Patient had CT A/P that showed obstructed CBD stent - Repeat CT A/P with PO and IV contrast again showed obstructed CBD stent - s/p attempted urgent ERCP on 10/18, failed to pass scope beyond narrowing in duodenum, failed to cannulate bile ducts - IR consulted for possible percutaneous drainage - T bili elevated, trending up; continue to monitor - No signs of encephalopathy at this time - NS @ 100 - Zofran PRN 2. Hx Pancreatic cancer - Dr. Rey consulted - monitor for any changes - no significant abdominal distention at this time 3. Leukocytosis likely reactive 2/2 chemo vs cholangitis vs pneumonia - Pt currently afebrile, no abdominal pain; no cough or shortness of breath - Blood culture shows no growth after 24 hours; UA and UCx pending - Initial CXR showed no changes from prior scans; CT chest showed RML and RLL consolidation vs atalectasis with associated large right pleural effusion - s/p thoracentesis, pleural fluid sent for cytology - s/p chest tube placement for pneumothorax; more fluid collected and sent for protein and LDH - Empiric IV abx started yesterday; continue until source control is achieved - ID consult requested, appreciate recs 4. Hx GERD and gastric obstruction w/ gastric erosions and a prior GI bleed s/p emergent gastrojejunostomy and enteroenterostomy in 03/2016 - PTX for GI ppx - monitor H/H 5. Hx Afib - cont Digoxin 6. Hx DM? - Blood sugar well controlled - last A1C 7.5 from 04/2017; repeat A1c pending - ISS low scale; has not required any coverage so far 8. Hx CAD s/p stent - ASA 81mg daily 9. BPH - Flomax home dose GI Ppx: Protonix DVT Ppx: aPTT normalized; start Lovenox 40 SC daily; ordered LE duplex to r/o DVT Patient was seen, examined and discussed with attending, Dr. Batista <Jessica Batista - Last Filed: 10/20/17 16:48> Objective - Vital Signs/Intake and Output Vital Signs (last 24 hours): Temp Pulse Resp BP Pulse Ox 97.8 F 81 20 115/63 97 10/20/17 08:00 10/20/17 08:00 10/20/17 08:00 10/20/17 09:33 10/20/17 08:00 Intake and Output: 10/20/17 10/20/17 06:59 18:59 Intake Total 2890 Output Total 2420 Balance 470 - Medications Medications: Current Medications Aspirin (Ecotrin) 81 mg PO DAILY [facility] Last Admin: 10/20/17 09:34 Dose: 81 mg Digoxin (Lanoxin) 0.25 mg PO 1400 [facility] Last Admin: 10/20/17 15:43 Dose: 0.25 mg Enoxaparin Sodium (Lovenox) 40 mg SC DAILY [facility] PRN Reason: Protocol Furosemide (Lasix) 60 mg PO DAILY [facility] Last Admin: 10/20/17 09:33 Dose: 60 mg Meropenem (Merrem Iv 1 Gm Premix) 50 mls @ 100 mls/hr IVPB Q8 [facility] PRN Reason: Protocol Last Admin: 10/20/17 15:43 Dose: 100 mls/hr Vancomycin HCl (Vancomycin 1gm) 1 gm in 250 mls @ 167 mls/hr IVPB 0600,1800 [facility] PRN Reason: Protocol Last Admin: 10/20/17 05:51 Dose: 167 mls/hr Insulin Human Lispro (Humalog Med) 0 units SC ACHS [facility] PRN Reason: Protocol Last Admin: 10/20/17 12:36 Dose: Not Given Ondansetron HCl (Zofran Inj) 4 mg IVP Q4H PRN PRN Reason: Nausea/Vomiting Pantoprazole Sodium (Protonix Ec Tab) 40 mg PO 0600 [facility] Last Admin: 10/20/17 05:51 Dose: 40 mg Tamsulosin HCl (Flomax) 0.4 mg PO DAILY [facility] Last Admin: 10/20/17 09:33 Dose: 0.4 mg - Labs Labs: 10/20/17 06:30 10/20/17 06:30 PT 16.9 SECONDS (9.4-12.5) H 10/20/17 06:30 INR 1.46 (0.93-1.08) H 10/20/17 06:30 APTT 38.3 Seconds (25.1-36.5) H 10/20/17 06:30 Attending/Attestation - Attestation I have personally seen and examined this patient.: Yes I have fully participated in the care of the patient.: Yes I have reviewed all pertinent clinical information, including history, physical exam and plan: Yes Notes (Text): 10/20/17 16:46 66 year old male with past medical history of pancreatic cancer, afib, CAD, and diabetes who presented with complaint of jaundice. He was found to have hyperbilirubinemia with possible obstructed CBD stent, possible cholangitis and also had pleural effusion. He was seen by GI who attempted ERCP, however failed attempt. Plan is for IR percutaneous drainage on Sunday. Leukocytosis possibly secondary to above and is slowly improving. Continue with iv antibiotics as per ID. He is also s/p thoracocentesis for pleural effusion. Follow up CXR showed pneumothorax for which chest tube is placed. Follow up CXR showed re-expansion. Continue with chest tube care as per surgery. He is on digoxin for afib. He reports he was on anticoagulation at home which he stopped on his own. Will need to clarify with hematology regarding possibly resuming anticoagulation. Jessica Batista MD Hospitalist.
--- NOTE | 2017-10-20 18:34 | PN ---
DATE: 10/20/2017 SUBJECTIVE: The patient is in bed in no acute distress, nontoxic. PHYSICAL EXAMINATION VITAL SIGNS: Temperature is 98, blood pressure is 102/70, respiratory rate of 18. HEENT: Unremarkable. NECK: Supple. LUNGS: Have decreased breath sounds. HEART: Normal S1, S2. ABDOMEN: Soft, nontender.. LABORATORY EXAMINATION: Reveals a white count of 17,500, hemoglobin of 9, platelets of 552. Chemistries reveals a BUN of 23, creatinine of 1.1 and pleural fluid is noted. Microbiology reveals the blood cultures are negative. Review of orders reveals the patient to be on vancomycin. ASSESSMENT AND PLAN: A 66-year-old male was seen earlier this morning in room 370, bed 2 with history of pancreatic cancer and gastric outlet obstruction and gastrojejunostomy with systemic inflammatory response syndrome, rule-out severe sepsis due to acute cholangitis, pancreatic cancer with gastric outlet obstruction, currently the patient on vancomycin and meropenem. The meropenem has been discontinued by pharmacy. We will reorder the meropenem and continue the vancomycin and we will make further recommendations upon availability of initial results. Jonathan Alvarez MD
--- NOTE | 2017-10-20 19:01 | RAD ---
HISTORY: chest tube, hydropneumothorax COMPARISON: Comparison is made with the previous study dated 10/19/2017 TECHNIQUE: Chest PA and lateral FINDINGS: LUNGS: Again seen are heterogeneous reticular and nodular opacities at the mid and lower right lung. PLEURA: No significant pleural effusion identified. No pneumothorax apparent.Right-sided chest C tube is seen in place. No evidence of significant pneumothorax in this study. CARDIOVASCULAR: Normal. OSSEOUS STRUCTURES: No significant abnormalities. VISUALIZED UPPER ABDOMEN: Normal. OTHER FINDINGS: Right chest wall emphysema is noted. IMPRESSION: Heterogeneous opacities at the mid and lower lungs bilaterally. No evidence of significant pneumothorax.
--- NOTE | 2017-10-20 19:42 | RAD ---
HISTORY: comparison COMPARISON: Comparison is made with 10/20/2017 FINDINGS: LUNGS: Interval improvement in the lungs noted since the previous exam. PLEURA: Interval removal of the right-sided chest C tube. No evidence of significant pneumothorax in this study. Small lucency seen at the medial aspect of the right midlung. No significant pleural effusions seen. Blunting of the right costophrenic angle is noted. CARDIOVASCULAR: Normal. OSSEOUS STRUCTURES: No significant abnormalities. VISUALIZED UPPER ABDOMEN: Normal. OTHER FINDINGS: Right-sided Port-A-Cath is seen in place. IMPRESSION: Interval removal of the right-sided chest C tube. Interval improvement in the mid and lower lungs since the previous exam.
--- NOTE | 2017-10-20 22:12 | US ---
HISTORY: Leg pain and swelling. Evaluate for DVT PHYSICIAN(S): Terrence Dorantes MD. TECHNIQUE: Duplex sonography and color-flow Doppler with graded compression were used to evaluate the deep venous systems of both lower extremities. The exam is limited by body habitus and edema FINDINGS: The visualized deep venous systems of both lower extremities are sonographically normal and compressible. Normal wave forms and augmentation are seen. There is no sonographic evidence for deep venous thrombosis in the visualized segments of both lower extremities. IMPRESSION: No sonographic evidence for deep venous thrombosis in the visualized segments of both lower extremities.
[2017-10-21] MEDS: Meropenem IV 1 gm in NS 50 ML IVPB SCH ×3 (05:29→21:09)
[2017-10-21] MEDS: Pantoprazole 40 mg EC Tab PO SCH (05:31)
[2017-10-21] MEDS: Vancomycin 1gm in NS 250ml 1 GM/250 ML BAG IVPB SCH ×2 (06:51→17:45)
[2017-10-21 07:03] LABS: MEAN CELL VOLUME 97.3 fl (80.0-105.0); MEAN CORPUSCULAR HEMOGLOBIN 33.7 pg (25.0-35.0); MEAN CORPUSCULAR HGB CONC 34.6 g/dl (31.0-37.0); MEAN PLATELET VOLUME 9.9 fl (7.0-11.0); RBC 2.97 10^6/uL (3.5-6.1); RED CELL DISTRIBUTION WIDTH 24.8 % (11.5-14.5); WHITE BLOOD COUNT 13.7 10^3/ul (4.5-11.0)
[2017-10-21 07:12] LABS: ALT/SGPT 53 U/L (7-56); AST/SGOT 94 U/L (17-59); BLOOD UREA NITROGEN 22 mg/dL (7-21); CALCIUM 8.2 mg/dL (8.4-10.5); GFR AFRICAN-AMERICAN > 60; GFR NON-AFRICAN AMERICAN > 60
[2017-10-21 07:15] LABS: INR 1.47 (0.93-1.08)
[2017-10-21 07:27] LABS: ALB/GLOB RATIO 0.7 (1.1-1.8); ALBUMIN 2.3 g/dL (3.0-4.8)
--- NOTE | 2017-10-21 07:39 | CP.PCM.PN ---
Subjective - Date & Time of Evaluation Date of Evaluation: 10/21/17 Time of Evaluation: 07:36 - Subjective Subjective: Surgery: Dr. Kang Pt seen and examined. CT removed yesterday afternoon. Pt resting comfortably in bed. No difficult breathing/SOB. Objective - Vital Signs/Intake and Output Vital Signs (last 24 hours): Temp Pulse Resp BP Pulse Ox 97.7 F 87 19 113/75 96 10/20/17 17:28 10/20/17 17:28 10/20/17 17:28 10/20/17 17:28 10/20/17 17:28 Intake and Output: 10/21/17 10/21/17 06:59 18:59 Intake Total 530 Balance 530 - Medications Medications: Current Medications Aspirin (Ecotrin) 81 mg PO DAILY [facility] Last Admin: 10/20/17 09:34 Dose: 81 mg Digoxin (Lanoxin) 0.25 mg PO 1400 [facility] Last Admin: 10/20/17 15:43 Dose: 0.25 mg Enoxaparin Sodium (Lovenox) 40 mg SC DAILY [facility] PRN Reason: Protocol Furosemide (Lasix) 60 mg PO DAILY [facility] Last Admin: 10/20/17 09:33 Dose: 60 mg Meropenem (Merrem Iv 1 Gm Premix) 50 mls @ 100 mls/hr IVPB Q8 [facility] PRN Reason: Protocol Last Admin: 10/21/17 05:29 Dose: 100 mls/hr Vancomycin HCl (Vancomycin 1gm) 1 gm in 250 mls @ 167 mls/hr IVPB 0600,1800 [facility] PRN Reason: Protocol Last Admin: 10/21/17 06:51 Dose: 167 mls/hr Insulin Human Lispro (Humalog Med) 0 units SC ACHS [facility] PRN Reason: Protocol Last Admin: 10/20/17 21:55 Dose: Not Given Ondansetron HCl (Zofran Inj) 4 mg IVP Q4H PRN PRN Reason: Nausea/Vomiting Pantoprazole Sodium (Protonix Ec Tab) 40 mg PO 0600 [facility] Last Admin: 10/21/17 05:31 Dose: 40 mg Tamsulosin HCl (Flomax) 0.4 mg PO DAILY [facility] Last Admin: 10/20/17 09:33 Dose: 0.4 mg - Labs Labs: 10/21/17 05:35 10/21/17 05:35 PT 17.0 SECONDS (9.4-12.5) H 10/21/17 05:35 INR 1.47 (0.93-1.08) H 10/21/17 05:35 APTT 38.3 Seconds (25.1-36.5) H 10/20/17 06:30 - Constitutional Appears: Non-toxic, No Acute Distress - Head Exam Head Exam: ATRAUMATIC, NORMOCEPHALIC - Eye Exam Eye Exam: EOMI, Scleral icterus - ENT Exam ENT Exam: Mucous Membranes Moist, Normal External Ear Exam - Neck Exam Neck Exam: Full ROM - Respiratory Exam Respiratory Exam: NORMAL BREATHING PATTERN. absent: Accessory Muscle Use, Respiratory Distress - GI/Abdominal Exam GI & Abdominal Exam: Soft. absent: Distended, Firm, Guarding, Rigid, Tenderness - Extremities Exam Extremities Exam: absent: Calf Tenderness, Pedal Edema - Neurological Exam Neurological Exam: Alert, Awake, Oriented x3 - Psychiatric Exam Psychiatric exam: Normal Affect, Normal Mood Assessment and Plan - Assessment and Plan (Free Text) Assessment: 66M w. R side PTX, s/p removal of CT yesterday Plan: -AM CXR stable, no PTX -pt stable, no SOB -will sign off, please re-consult as needed -d/w attending Zemaitis PGY3
[2017-10-21] MEDS: Insulin Lispro (humaLOG) MEDIUM Coverage SC SCH ×4 (08:22→21:30)
[2017-10-21] MEDS: Enoxaparin 40 mg Syringe SC SCH (09:22)
[2017-10-21 09:55] LABS: PH,URINE 5.5 (4.7-8.0); URINE BILIRUBIN LARGE (NEGATIVE); URINE BLOOD LARGE (NEGATIVE); URINE GLUCOSE (UA) 100 mg/dL (NEGATIVE); URINE LEUKOCYTE ESTERASE TRACE Leu/uL (NEGATIVE); URINE PROTEIN 30 mg/dL (<30 mg/dL); URINE UROBILINOGEN 0.2 E.U./dL (<1 E.U./dL)
[2017-10-21 09:59] LABS: URINE COLOR DARK YELLOW (YELLOW)
[2017-10-21 10:00] LABS: URINE APPEARANCE SL CLOUDY (CLEAR)
[2017-10-21 10:10] LABS: URINE BACTERIA MOD (NEG); URINE COARSE GRANULAR CAST TRACE /hpf (0-2); URINE EPITHELIAL CELLS 0 - 2 /hpf (0-5)
[2017-10-21 12:40] LABS: INR 1.53 (0.93-1.08); PARTIAL THROMBOPLASTIN TIME 41.8 Seconds (25.1-36.5); PROTHROMBIN TIME 17.7 SECONDS (9.4-12.5)
[2017-10-21] MEDS: Digoxin 250 mcg (0.25 mg) Tab PO SCH (13:43)
--- NOTE | 2017-10-21 17:08 | CP.PCM.PN ---
<Lavonne Herbert - Last Filed: 10/21/17 17:03> Subjective - Date & Time of Evaluation Date of Evaluation: 10/21/17 Time of Evaluation: 07:30 - Subjective Subjective: Lavonne Herbert DO PGY1 - IM Progress Note Patient seen and examined at bedside. Per nursing staff, no acute events overnight. Patient is pending IR percutaneous drainage of gallbladder tomorrow. He denies any chest pain, shortness of breath, fever, chills, abdominal pain, nausea, vomiting, diarrhea, constipation, pruritis. Objective - Vital Signs/Intake and Output Vital Signs (last 24 hours): Temp Pulse Resp BP Pulse Ox 97.4 F L 78 20 126/87 95 10/21/17 07:00 10/21/17 07:00 10/21/17 07:00 10/21/17 09:21 10/21/17 07:00 Intake and Output: 10/21/17 10/21/17 06:59 18:59 Intake Total 530 Balance 530 - Medications Medications: Current Medications Aspirin (Ecotrin) 81 mg PO DAILY [facility] Last Admin: 10/21/17 09:22 Dose: 81 mg Digoxin (Lanoxin) 0.25 mg PO 1400 [facility] Last Admin: 10/21/17 13:43 Dose: 0.25 mg Enoxaparin Sodium (Lovenox) 40 mg SC DAILY [facility] PRN Reason: Protocol Last Admin: 10/21/17 09:22 Dose: 40 mg Furosemide (Lasix) 60 mg PO DAILY [facility] Last Admin: 10/21/17 09:21 Dose: 60 mg Meropenem (Merrem Iv 1 Gm Premix) 50 mls @ 100 mls/hr IVPB Q8 [facility] PRN Reason: Protocol Last Admin: 10/21/17 13:43 Dose: 100 mls/hr Vancomycin HCl (Vancomycin 1gm) 1 gm in 250 mls @ 167 mls/hr IVPB 0600,1800 [facility] PRN Reason: Protocol Last Admin: 10/21/17 06:51 Dose: 167 mls/hr Insulin Human Lispro (Humalog Med) 0 units SC ACHS [facility] PRN Reason: Protocol Last Admin: 10/21/17 11:40 Dose: Not Given Ondansetron HCl (Zofran Inj) 4 mg IVP Q4H PRN PRN Reason: Nausea/Vomiting Pantoprazole Sodium (Protonix Ec Tab) 40 mg PO 0600 [facility] Last Admin: 10/21/17 05:31 Dose: 40 mg Tamsulosin HCl (Flomax) 0.4 mg PO DAILY [facility] Last Admin: 10/21/17 09:21 Dose: 0.4 mg - Labs Labs: 10/21/17 05:35 10/21/17 05:35 PT 17.7 SECONDS (9.4-12.5) H 10/21/17 12:00 INR 1.53 (0.93-1.08) H 10/21/17 12:00 APTT 41.8 Seconds (25.1-36.5) H 10/21/17 12:00 - Additional Findings Additional findings: - Constitutional Appears: Non-toxic, No Acute Distress, Chronically Ill - Head Exam Head Exam: ATRAUMATIC, NORMOCEPHALIC - Eye Exam Eye Exam: EOMI, PERRL, Scleral icterus - ENT Exam ENT Exam: Mucous Membranes Moist - Neck Exam Neck Exam: Full ROM, Normal Inspection - Respiratory Exam Respiratory Exam: Clear to Ausculation Bilateral, NORMAL BREATHING PATTERN Additional comments: Breath sounds audible in all lung oliva Right chest port Chest tube removed - Cardiovascular Exam Cardiovascular Exam: REGULAR RHYTHM, +S1, +S2 - GI/Abdominal Exam GI & Abdominal Exam: Soft, Normal Bowel Sounds. absent: Distended, Firm, Guarding, Rigid, Tenderness - Extremities Exam Extremities Exam: Pedal Edema. absent: Calf Tenderness Additional comments: Anasarca, with 1+ pitting edema in all four extremities, diffusely - Neurological Exam Neurological Exam: Alert, Awake, Oriented x3 Neuro motor strength exam: Left Upper Extremity: 5, Right Upper Extremity: 5, Left Lower Extremity: 5, Right Lower Extremity: 5 - Psychiatric Exam Psychiatric exam: Normal Affect, Normal Mood - Skin Skin Exam: Dry, Intact Additional comments: Jaundice Assessment and Plan - Assessment and Plan (Free Text) Assessment: 66yo M PMH pancreatic CA, Afib (on Dig), CAD, R tinnitus, DM2, nephrolithiasis who presents after being seen by Dr. Rey and told to come in for his jaundice. s/p thoracentesis 10/18 with subsequent pneumothorax, now s/p chest tube placement draining serious fluid. s/p urgent ERCP attempted 10/18, failed to pass scope beyond duodenum. Pending IR percutaneous drainage of gallbladder Plan: 1. Hyperbilirubinemia 2/2 likely obstructed CBD stent with possible cholangitis - Patient had CT A/P that showed obstructed CBD stent - Repeat CT A/P with PO and IV contrast again showed obstructed CBD stent - s/p attempted urgent ERCP on 10/18, failed to pass scope beyond narrowing in duodenum, failed to cannulate bile ducts - IR consulted for possible percutaneous drainage - T bili elevated, trending up; continue to monitor - No signs of encephalopathy at this time - NS @ 100 - Zofran PRN 2. Hx Pancreatic cancer - Dr. Rey consulted - monitor for any changes - no significant abdominal distention at this time 3. Leukocytosis likely reactive 2/2 chemo vs cholangitis vs pneumonia - Pt currently afebrile, no abdominal pain; no cough or shortness of breath - Blood culture shows no growth after 3 days; Pleural fluid culture shows no growth after 24 hours; UA and UCx pending - Initial CXR showed no changes from prior scans; CT chest showed RML and RLL consolidation vs atalectasis with associated large right pleural effusion - s/p thoracentesis, pleural fluid sent for cytology, protein, LDH, gram stain and culture - Chest tube removed this AM - Continue merrem and vancomycin, per ID - ID consult requested, appreciate recs 4. Hx GERD and gastric obstruction w/ gastric erosions and a prior GI bleed s/p emergent gastrojejunostomy and enteroenterostomy in 03/2016 - PTX for GI ppx - monitor H/H 5. Hx Afib - cont Digoxin 6. Hx DM? - Blood sugar well controlled - last A1C 7.5 from 04/2017; repeat A1c pending - ISS low scale; has not required any coverage so far 8. Hx CAD s/p stent - ASA 81mg daily 9. BPH - Flomax home dose GI Ppx: Protonix DVT Ppx: Lovenox 40 SC daily; LE duplex negative Patient was seen, examined and discussed with attending, Dr. Batista <Jessica Batista - Last Filed: 10/22/17 00:12> Objective - Vital Signs/Intake and Output Vital Signs (last 24 hours): Temp Pulse Resp BP Pulse Ox 97.7 F 92 H 20 135/75 96 10/21/17 17:59 10/21/17 17:59 10/21/17 17:59 10/21/17 17:59 10/21/17 17:59 Intake and Output: 10/21/17 10/22/17 18:59 06:59 Intake Total 360 Output Total 300 Balance 60 - Medications Medications: Current Medications Aspirin (Ecotrin) 81 mg PO DAILY [facility] Last Admin: 10/21/17 09:22 Dose: 81 mg Digoxin (Lanoxin) 0.25 mg PO 1400 [facility] Last Admin: 10/21/17 13:43 Dose: 0.25 mg Enoxaparin Sodium (Lovenox) 40 mg SC DAILY [facility] PRN Reason: Protocol Last Admin: 10/21/17 09:22 Dose: 40 mg Furosemide (Lasix) 60 mg PO DAILY [facility] Last Admin: 10/21/17 09:21 Dose: 60 mg Meropenem (Merrem Iv 1 Gm Premix) 50 mls @ 100 mls/hr IVPB Q8 [facility] PRN Reason: Protocol Last Admin: 10/21/17 21:09 Dose: 100 mls/hr Vancomycin HCl (Vancomycin 1gm) 1 gm in 250 mls @ 167 mls/hr IVPB 0600,1800 [facility] PRN Reason: Protocol Last Admin: 10/21/17 17:45 Dose: 167 mls/hr Insulin Human Lispro (Humalog Med) 0 units SC ACHS [facility] PRN Reason: Protocol Last Admin: 10/21/17 17:45 Dose: Not Given Ondansetron HCl (Zofran Inj) 4 mg IVP Q4H PRN PRN Reason: Nausea/Vomiting Pantoprazole Sodium (Protonix Ec Tab) 40 mg PO 0600 [facility] Last Admin: 10/21/17 05:31 Dose: 40 mg Tamsulosin HCl (Flomax) 0.4 mg PO DAILY [facility] Last Admin: 10/21/17 09:21 Dose: 0.4 mg - Labs Labs: 10/21/17 05:35 10/21/17 05:35 PT 17.7 SECONDS (9.4-12.5) H 10/21/17 12:00 INR 1.53 (0.93-1.08) H 10/21/17 12:00 APTT 41.8 Seconds (25.1-36.5) H 10/21/17 12:00 Attending/Attestation - Attestation I have personally seen and examined this patient.: Yes I have fully participated in the care of the patient.: Yes I have reviewed all pertinent clinical information, including history, physical exam and plan: Yes Notes (Text): 10/21/17 66 year old male with past medical history of pancreatic cancer, afib, CAD, and diabetes who presented with complaint of jaundice. He was found to have hyperbilirubinemia with possible obstructed CBD stent, possible cholangitis and also had pleural effusion. He was seen by GI who attempted ERCP, however failed attempt. Plan is for IR percutaneous drainage tomorrow. Leukocytosis possibly secondary to above and continues to improve. Continue with iv antibiotics as per ID. He is also s/p thoracocentesis for pleural effusion. Follow up CXR showed pneumothorax for which chest tube was placed. Follow up CXR showed re-expansion and chest tube was later discontinued by surgery. He is on digoxin for afib. He reports he was on anticoagulation for DVT at home which he stopped on his own. Will need to clarify with Dr. Rey tomorrow regarding possibly resuming anticoagulation given history of afib and recent DVT. Jessica Batista MD Hospitalist.
--- NOTE | 2017-10-21 19:17 | PN ---
DATE: 10/21/2017 SUBJECTIVE: The patient is seen early this morning in room 370, bed 2. PHYSICAL EXAMINATION: VITAL SIGNS: Temperature is 97, blood pressure is 120/70, respiratory rate of 16. HEENT: Unremarkable. NECK: Supple. LUNGS: Have decreased breath sounds. HEART: Normal S1, S2. ABDOMEN: Soft, nontender. LABORATORY EXAMINATION: Reveals a white count of 13,700, hemoglobin of 10, platelets of 555. Chemistries reveals a BUN of 22, creatinine of 1.1, procalcitonin 0.41. Urinalysis is noted. Pleural fluid is noted. Microbiology reveals no growth at 48 hours in the pleural fluid. Blood cultures are negative. Review of orders reveals the patient is on vancomycin. The patient had a chest x-ray yesterday. Interval improvement in the lungs. note is reviewed. ASSESSMENT AND PLAN: A 66-year-old male seen earlier today, history of pancreatic cancer, gastric outlet obstruction, gastrojejunostomy, systemic inflammatory response syndrome and severe sepsis with acute cholangitis, pancreatic cancer and gastric outlet obstruction on vancomycin and meropenem. We will reorder the vancomycin and meropenem. We will follow with you. For the pleural cultures, no growth at 24 hours, we will check on final blood cultures and pleural cultures. Jonathan Alvarez MD
--- NOTE | 2017-10-21 21:56 | RAD ---
HISTORY: chst tube, hydropneumothorax COMPARISON: Comparison is made with the previous study. FINDINGS: LUNGS: Haziness at the lower portion of the lungs noted bilaterally. PLEURA: There is a small tube extending to the right chest. No evidence of significant pneumothorax. Small right pleural effusion is noted. CARDIOVASCULAR: Normal. OSSEOUS STRUCTURES: No significant abnormalities. VISUALIZED UPPER ABDOMEN: Normal. OTHER FINDINGS: Right-sided Infusaport is seen in place. There is small amount of soft tissue emphysema at the right chest wall. IMPRESSION: No evidence of significant right pneumothorax. Small right pleural effusion.
[2017-10-22] MEDS: Meropenem IV 1 gm in NS 50 ML IVPB SCH ×3 (05:18→21:47)
[2017-10-22] MEDS: Pantoprazole 40 mg EC Tab PO SCH (05:18)
[2017-10-22] MEDS: Vancomycin 1gm in NS 250ml 1 GM/250 ML BAG IVPB SCH ×2 (06:12→17:38)
[2017-10-22 06:53] LABS: BASO # 0.07 K/mm3 (0.0-2.0); BASO % 0.5 % (0.0-3.0); EOS # 0.4 (0.0-0.7); EOS % 2.5 % (1.5-5.0); GRAN # 10.49 (1.4-6.5); GRAN % 73.9 % (50.0-68.0); HEMOGLOBIN 10.3 g/dL (14.0-18.0); LYMPH # 1.3 (1.2-3.4); LYMPH % 9.4 % (22.0-35.0); MEAN CORPUSCULAR HEMOGLOBIN 33.9 pg (25.0-35.0); MEAN CORPUSCULAR HGB CONC 34.6 g/dl (31.0-37.0); MEAN PLATELET VOLUME 10.4 fl (7.0-11.0); MONO # 1.9 (0.1-0.6); MONO % 13.7 % (1.0-6.0); RBC 3.04 10^6/uL (3.5-6.1); RED CELL DISTRIBUTION WIDTH 24.8 % (11.5-14.5); WHITE BLOOD COUNT 14.2 10^3/ul (4.5-11.0)
[2017-10-22 07:06] LABS: ALT/SGPT 49 U/L (7-56); AST/SGOT 84 U/L (17-59); BLOOD UREA NITROGEN 21 mg/dL (7-21); CALCIUM 7.9 mg/dL (8.4-10.5); GFR AFRICAN-AMERICAN > 60; GFR NON-AFRICAN AMERICAN > 60
[2017-10-22 07:09] LABS: ALB/GLOB RATIO 0.7 (1.1-1.8); ALBUMIN 2.2 g/dL (3.0-4.8)
[2017-10-22] MEDS: Insulin Lispro (humaLOG) MEDIUM Coverage SC SCH (07:13)
[2017-10-22] MEDS ORDERED: Lidocaine 2% Inj (20ml) ONE (10:01)
[2017-10-22] MEDS ORDERED: Iodixanol 320 MG/ML 100 ML BOTTLE IV ONE (10:02)
[2017-10-22] MEDS ORDERED: Midazolam 2 MG/2 ML VIAL ONE ×2 (10:02→11:09)
[2017-10-22] MEDS ORDERED: Iodixanol 320 MG/ML 200 ML BOTTLE IV ONE (10:03)
[2017-10-22] MEDS: Enoxaparin 40 mg Syringe SC SCH (10:43)
[2017-10-22] MEDS ORDERED: guaiFENesin 100 mg/5 ml Syrup UD PO PRN (11:43)
[2017-10-22] MEDS ORDERED: Oxycodone/Acetaminophen 5/325 mg Tab PO PRN (12:16)
[2017-10-22] MEDS ORDERED: Sodium Chloride 0.45% 1,000 ML IV SCH (12:30)
[2017-10-22] MEDS ORDERED: Oxycodone/Acetaminophen 5/325 mg Tab ONE (13:27)
[2017-10-22] MEDS: Digoxin 250 mcg (0.25 mg) Tab PO SCH (13:47)
--- NOTE | 2017-10-22 14:32 | CP.PCM.PN ---
<Lavonne Herbert - Last Filed: 10/22/17 14:20> Subjective - Date & Time of Evaluation Date of Evaluation: 10/22/17 Time of Evaluation: 07:30 - Subjective Subjective: Lavonne Herbert DO PGY1 - IM Progress Note Patient seen and examined at bedside. Per nursing staff, no acute events overnight. Patient is currently NPO for IR guided percutaneous drainage of gallbladder. He denies any chest pain, shortness of breath, fever, chills, abdominal pain, nausea, vomiting, diarrhea, constipation, pruritis. Admits to cough productive of yellowish sputum, requesting cough medicine. Objective - Vital Signs/Intake and Output Vital Signs (last 24 hours): Temp Pulse Resp BP Pulse Ox 98.1 F 97 H 16 132/81 95 10/22/17 13:22 10/22/17 13:22 10/22/17 13:22 10/22/17 13:22 10/22/17 13:22 Intake and Output: 10/22/17 10/22/17 06:59 18:59 Intake Total 810 Output Total 300 Balance 510 - Medications Medications: Current Medications Acetaminophen (Tylenol 325mg Tab) 650 mg PO Q4 PRN PRN Reason: Pain, Mild (1-3) Aspirin (Ecotrin) 81 mg PO DAILY [facility] Last Admin: 10/22/17 10:43 Dose: Not Given Digoxin (Lanoxin) 0.25 mg PO 1400 [facility] Last Admin: 10/22/17 13:47 Dose: 0.25 mg Enoxaparin Sodium (Lovenox) 40 mg SC DAILY [facility] PRN Reason: Protocol Last Admin: 10/22/17 10:43 Dose: Not Given Furosemide (Lasix) 60 mg PO DAILY [facility] Last Admin: 10/22/17 09:48 Dose: 60 mg Guaifenesin (Robitussin) 100 mg PO Q4H PRN PRN Reason: Cough Meropenem (Merrem Iv 1 Gm Premix) 50 mls @ 100 mls/hr IVPB Q8 [facility] PRN Reason: Protocol Last Admin: 10/22/17 13:49 Dose: 100 mls/hr Vancomycin HCl (Vancomycin 1gm) 1 gm in 250 mls @ 167 mls/hr IVPB 0600,1800 [facility] PRN Reason: Protocol Last Admin: 10/22/17 06:12 Dose: 167 mls/hr Sodium Chloride (Sodium Chloride 0.45%) 1,000 mls @ 80 mls/hr IV .[id number] [facility] Stop: 10/23/17 12:00 Ondansetron HCl (Zofran Inj) 4 mg IVP Q4H PRN PRN Reason: Nausea/Vomiting Oxycodone/Acetaminophen (Percocet 5/325 Mg Tab) 1 tab PO Q4H PRN PRN Reason: Pain, moderate (4-7) Stop: 10/25/17 12:17 Last Admin: 10/22/17 13:25 Dose: 1 tab Pantoprazole Sodium (Protonix Ec Tab) 40 mg PO 0600 [facility] Last Admin: 10/22/17 05:18 Dose: Not Given Tamsulosin HCl (Flomax) 0.4 mg PO DAILY [facility] Last Admin: 10/22/17 09:46 Dose: 0.4 mg - Labs Labs: 10/22/17 06:30 10/22/17 06:30 PT 17.7 SECONDS (9.4-12.5) H 10/21/17 12:00 INR 1.53 (0.93-1.08) H 10/21/17 12:00 APTT 41.8 Seconds (25.1-36.5) H 10/21/17 12:00 - Additional Findings Additional findings: - Constitutional Appears: Non-toxic, No Acute Distress, Chronically Ill - Head Exam Head Exam: ATRAUMATIC, NORMOCEPHALIC - Eye Exam Eye Exam: EOMI, PERRL, Scleral icterus - ENT Exam ENT Exam: Mucous Membranes Moist - Neck Exam Neck Exam: Full ROM, Normal Inspection - Respiratory Exam Respiratory Exam: Clear to Ausculation Bilateral, NORMAL BREATHING PATTERN Additional comments: Breath sounds audible in all lung oliva Right chest port - Cardiovascular Exam Cardiovascular Exam: REGULAR RHYTHM, +S1, +S2 - GI/Abdominal Exam GI & Abdominal Exam: Soft, Normal Bowel Sounds. absent: Distended, Firm, Guarding, Rigid, Tenderness - Extremities Exam Extremities Exam: Pedal Edema. absent: Calf Tenderness Additional comments: Anasarca, with 1+ pitting edema in all four extremities, diffusely - Neurological Exam Neurological Exam: Alert, Awake, Oriented x3 Neuro motor strength exam: Left Upper Extremity: 5, Right Upper Extremity: 5, Left Lower Extremity: 5, Right Lower Extremity: 5 - Psychiatric Exam Psychiatric exam: Normal Affect, Normal Mood - Skin Skin Exam: Dry, Intact Additional comments: Jaundice Assessment and Plan - Assessment and Plan (Free Text) Assessment: 66yo M PMH pancreatic CA, Afib (on Dig), CAD, R tinnitus, DM2, nephrolithiasis who presents after being seen by Dr. Rey and told to come in for his jaundice. s/p thoracentesis 10/18 with subsequent pneumothorax, now s/p chest tube placement draining serious fluid. s/p urgent ERCP attempted 10/18, failed to pass scope beyond duodenum. Pending IR percutaneous drainage of gallbladder today Plan: 1. Hyperbilirubinemia 2/2 likely obstructed CBD stent with possible cholangitis - Patient had CT A/P that showed obstructed CBD stent - Repeat CT A/P with PO and IV contrast again showed obstructed CBD stent - s/p attempted urgent ERCP on 10/18, failed to pass scope beyond narrowing in duodenum, failed to cannulate bile ducts - IR consulted for possible percutaneous drainage - T bili elevated, trending up; continue to monitor - No signs of encephalopathy at this time - NS @ 100 - Zofran PRN 2. Hx Pancreatic cancer - Dr. Rey consulted - Monitor for any changes - No significant abdominal distention at this time 3. Leukocytosis likely reactive 2/2 chemo vs cholangitis vs pneumonia - Pt currently afebrile, no abdominal pain; no cough or shortness of breath - Blood culture shows no growth after 4 days; Pleural fluid culture shows no growth after 2 days - UA shows +LE, but no nitrites; patient is asymptomatic; and UCx pending - Initial CXR showed no changes from prior scans; CT chest showed RML and RLL consolidation vs atalectasis with associated large right pleural effusion - s/p thoracentesis, pleural fluid sent for cytology, protein, LDH, gram stain and culture - Continue merrem and vancomycin, per ID - ID consult requested, appreciate recs 4. Hx GERD and gastric obstruction w/ gastric erosions and a prior GI bleed s/p emergent gastrojejunostomy and enteroenterostomy in 03/2016 - PTX for GI ppx - monitor H/H 5. Hx Afib; hx of SVC thrombus - cont Digoxin - Will discuss with hem/onc regarding anticoagulation 6. Hx DM? - Blood sugar well controlled - last A1C 7.5 from 04/2017; repeat A1c 4.9% - Discontinue accucheck and sliding scale insulin 8. Hx CAD s/p stent - ASA 81mg daily 9. BPH - Flomax home dose 10. Cough - Patient reports cough, productive of yellow sputum - Lung exam unremarkable - Patient already on vanc and merrem - Start guifenasin PRN for cough GI Ppx: Protonix DVT Ppx: Lovenox 40 SC daily Patient was seen, examined and discussed with attending, Dr. Loving <Bryan Loving - Last Filed: 10/22/17 16:37> Objective - Vital Signs/Intake and Output Vital Signs (last 24 hours): Temp Pulse Resp BP Pulse Ox 98.1 F 97 H 16 132/81 95 10/22/17 13:22 10/22/17 13:22 10/22/17 13:22 10/22/17 13:22 10/22/17 13:22 Intake and Output: 10/22/17 10/22/17 06:59 18:59 Intake Total 810 180 Output Total 300 0 Balance 510 180 - Medications Medications: Current Medications Acetaminophen (Tylenol 325mg Tab) 650 mg PO Q4 PRN PRN Reason: Pain, Mild (1-3) Apixaban (Eliquis) 5 mg PO BID [facility] PRN Reason: Protocol Aspirin (Ecotrin) 81 mg PO DAILY [facility] Last Admin: 10/22/17 10:43 Dose: Not Given Digoxin (Lanoxin) 0.25 mg PO 1400 [facility] Last Admin: 10/22/17 13:47 Dose: 0.25 mg Furosemide (Lasix) 60 mg PO DAILY [facility] Last Admin: 10/22/17 09:48 Dose: 60 mg Guaifenesin (Robitussin) 100 mg PO Q4H PRN PRN Reason: Cough Meropenem (Merrem Iv 1 Gm Premix) 50 mls @ 100 mls/hr IVPB Q8 [facility] PRN Reason: Protocol Last Admin: 10/22/17 13:49 Dose: 100 mls/hr Vancomycin HCl (Vancomycin 1gm) 1 gm in 250 mls @ 167 mls/hr IVPB 0600,1800 [facility] PRN Reason: Protocol Last Admin: 10/22/17 06:12 Dose: 167 mls/hr Sodium Chloride (Sodium Chloride 0.45%) 1,000 mls @ 80 mls/hr IV .[id number] [facility] Stop: 10/23/17 12:00 Ondansetron HCl (Zofran Inj) 4 mg IVP Q4H PRN PRN Reason: Nausea/Vomiting Oxycodone/Acetaminophen (Percocet 5/325 Mg Tab) 1 tab PO Q4H PRN PRN Reason: Pain, moderate (4-7) Stop: 10/25/17 12:17 Last Admin: 10/22/17 13:25 Dose: 1 tab Pantoprazole Sodium (Protonix Ec Tab) 40 mg PO 0600 [facility] Last Admin: 10/22/17 05:18 Dose: Not Given Tamsulosin HCl (Flomax) 0.4 mg PO DAILY [facility] Last Admin: 10/22/17 09:46 Dose: 0.4 mg - Labs Labs: 10/22/17 06:30 10/22/17 06:30 PT 17.7 SECONDS (9.4-12.5) H 10/21/17 12:00 INR 1.53 (0.93-1.08) H 10/21/17 12:00 APTT 41.8 Seconds (25.1-36.5) H 10/21/17 12:00 Attending/Attestation - Attestation I have personally seen and examined this patient.: Yes I have fully participated in the care of the patient.: Yes I have reviewed all pertinent clinical information, including history, physical exam and plan: Yes Notes (Text): 10/22/17 16:37 Medical record note made by the resident after discussion with my direction and input after the patient was personally seen and examined by me. I have reviewed the chart and agree that the record accurately reflects by personal performance of the history, physical exam, data review, and medical decision-making, in the course for the patient. I have also personally directed the plan of care.
--- NOTE | 2017-10-22 15:00 | CP.PCM.PN ---
Subjective - Date & Time of Evaluation Date of Evaluation: 10/22/17 Time of Evaluation: 12:20 - Subjective Subjective: No fevers, still feels weak. Objective - Vital Signs/Intake and Output Vital Signs (last 24 hours): Temp Pulse Resp BP Pulse Ox 98.1 F 76 20 112/76 96 10/22/17 08:34 10/22/17 08:34 10/22/17 08:34 10/22/17 08:34 10/22/17 08:34 Intake and Output: 10/22/17 10/22/17 06:59 18:59 Intake Total 810 Output Total 300 Balance 510 - Medications Medications: Current Medications Aspirin (Ecotrin) 81 mg PO DAILY [facility] Last Admin: 10/21/17 09:22 Dose: 81 mg Digoxin (Lanoxin) 0.25 mg PO 1400 [facility] Last Admin: 10/21/17 13:43 Dose: 0.25 mg Enoxaparin Sodium (Lovenox) 40 mg SC DAILY [facility] PRN Reason: Protocol Last Admin: 10/21/17 09:22 Dose: 40 mg Furosemide (Lasix) 60 mg PO DAILY [facility] Last Admin: 10/21/17 09:21 Dose: 60 mg Meropenem (Merrem Iv 1 Gm Premix) 50 mls @ 100 mls/hr IVPB Q8 [facility] PRN Reason: Protocol Last Admin: 10/22/17 05:18 Dose: 100 mls/hr Vancomycin HCl (Vancomycin 1gm) 1 gm in 250 mls @ 167 mls/hr IVPB 0600,1800 [facility] PRN Reason: Protocol Last Admin: 10/22/17 06:12 Dose: 167 mls/hr Insulin Human Lispro (Humalog Med) 0 units SC ACHS [facility] PRN Reason: Protocol Last Admin: 10/21/17 21:30 Dose: Not Given Ondansetron HCl (Zofran Inj) 4 mg IVP Q4H PRN PRN Reason: Nausea/Vomiting Pantoprazole Sodium (Protonix Ec Tab) 40 mg PO 0600 [facility] Last Admin: 10/22/17 05:18 Dose: Not Given Tamsulosin HCl (Flomax) 0.4 mg PO DAILY [facility] Last Admin: 10/21/17 09:21 Dose: 0.4 mg - Labs Labs: 10/22/17 06:30 10/22/17 06:30 PT 17.7 SECONDS (9.4-12.5) H 10/21/17 12:00 INR 1.53 (0.93-1.08) H 10/21/17 12:00 APTT 41.8 Seconds (25.1-36.5) H 10/21/17 12:00 - Constitutional Appears: Chronically Ill - Respiratory Exam Respiratory Exam: Decreased Breath Sounds - Cardiovascular Exam Cardiovascular Exam: +S1, +S2 - GI/Abdominal Exam GI & Abdominal Exam: Soft. absent: Tenderness Assessment and Plan - Assessment and Plan (Free Text) Plan: Assessment Systemic inflammatory response syndrome, R/O severe sepsis due to acute cholangitis in this patient with pancreatic cancer with gastric outlet obstruction S/P gastrojejunostomy, on chemotherapy, S/P pancreatic stent placement atrial fibrillation CAD S/P PCI DM history of nephrolithiasis Plan continue Vancomycin and Merrem day 4; awaiting further plan for IR-guided biliary drainage, with bile fluid cx will continue to monitor clinically overall prognosis is poor
--- NOTE | 2017-10-22 20:35 | VASCULAR ---
PROCEDURE: 1. Percutaneous removal occluded internal biliary stent 2. Internal external biliary drain placement HISTORY: Advanced pancreatic CA. Occluded internal stent with jaundice and cholangitis. PHYSICIAN(S): Terrence Dorantes MD. TECHNIQUE: The relative risks and indications of the procedure were explained to the patient and consent obtained. The patient was placed supine on the arteriogram table in a subxiphoid area prepped and draped usual sterile fashion. Conscious sedation monitoring were provided throughout the procedure by a nurse. Under ultrasound guidance mid left dilated biliary ducts were punctured with a micropuncture set. 0.018 guidewire was advanced to the occluded stent. Exchange is made for 0.035 guidewire. An 8 [place] sheath was placed. A cholangiogram was performed. Multiple attempts at advancing the guidewire through the occluded internal stent were unsuccessful. Subsequently a 0.035 glidewire was advanced through the occlusion alongside the stent. An 8 [place] sheath and a bloody wire system was placed. Next a snare induced into the common bile duct. The snare would not engage the proximal and of the stent. Subsequently the snare catheter was advanced through the obstruction to the distal end of the stent. After multiple attempts the distal in the stent was successfully snared. The stent was removed an inverted and removed using the 8 [place] sheath. Next a 12 [place] internal external biliary drain was placed on the left into the duodenum. The drain was flushed and secured. The patient tolerated the procedure well. FINDINGS: The internal biliary stent appears to be occluded by debris. There is does not appear to be tumor are overgrowth proximally or distally. The new 12 [place] internal external drain is in good position and draining well. IMPRESSION: 1.Occluded internal biliary stent. There does not appear to be tumor over growth proximally or distally. 2. Successful percutaneous retrieval of the patient's occluded internal biliary stent. 3. Successful placement of a 12 [place] internal/external biliary drain. Fluoro time 32.6 minutes DAP 66131.8 cGycm2
[2017-10-23] MEDS: Pantoprazole 40 mg EC Tab PO SCH (05:23)
[2017-10-23] MEDS: Meropenem IV 1 gm in NS 50 ML IVPB SCH ×3 (05:23→21:23)
[2017-10-23 06:30] LABS: BASO # 0.04 K/mm3 (0.0-2.0); BASO % 0.1 % (0.0-3.0); EOS # 0.1 (0.0-0.7); EOS % 0.1 % (1.5-5.0); GRAN # 48.56 (1.4-6.5); HEMOGLOBIN 10.7 g/dL (14.0-18.0); LYMPH # 0.9 (1.2-3.4); LYMPH % 1.7 % (22.0-35.0); MEAN CELL VOLUME 98.4 fl (80.0-105.0); MEAN CORPUSCULAR HEMOGLOBIN 34.4 pg (25.0-35.0); MEAN PLATELET VOLUME 10.3 fl (7.0-11.0); MONO # 3.8 (0.1-0.6); MONO % 7.1 % (1.0-6.0); PLATELET COUNT 474 10^3/uL (120.0-450.0); RBC 3.11 10^6/uL (3.5-6.1); RED CELL DISTRIBUTION WIDTH 23.8 % (11.5-14.5)
[2017-10-23 06:47] LABS: WHITE BLOOD COUNT 53.4 10^3/ul (4.5-11.0)
[2017-10-23 06:59] LABS: ALT/SGPT 50 U/L (7-56); AST/SGOT 73 U/L (17-59); BLOOD UREA NITROGEN 25 mg/dL (7-21); GFR AFRICAN-AMERICAN > 60; GFR NON-AFRICAN AMERICAN 51
[2017-10-23 07:33] LABS: ALB/GLOB RATIO 0.7 (1.1-1.8); ALBUMIN 2.1 g/dL (3.0-4.8)
[2017-10-23] MEDS: Vancomycin 1gm in NS 250ml 1 GM/250 ML BAG IVPB SCH ×2 (07:34→18:07)
[2017-10-23 08:47] LABS: LYMPHOCYTE 1 % (22.0-35.0); NEUTROPHIL 94 % (50.0-70.0)
[2017-10-23 08:48] LABS: ANISOCYTOSIS 2+; MONOCYTE 5 % (1.0-6.0); PLATELET ESTIMATE HIGH (NORMAL); POIKILOCYTOSIS SLIGHT
[2017-10-23 08:49] LABS: OVALOCYTES SLIGHT; TARGET CELLS SLIGHT
[2017-10-23 10:27] LABS: BASO # 0.06 K/mm3 (0.0-2.0); BASO % 0.1 % (0.0-3.0); EOS # 0.1 (0.0-0.7); EOS % 0.2 % (1.5-5.0); GRAN # 47.95 (1.4-6.5); HEMOGLOBIN 12.5 g/dL (14.0-18.0); LYMPH % 1.9 % (22.0-35.0); MEAN CELL VOLUME 98.6 fl (80.0-105.0); MEAN CORPUSCULAR HEMOGLOBIN 34.9 pg (25.0-35.0); MEAN CORPUSCULAR HGB CONC 35.4 g/dl (31.0-37.0); MEAN PLATELET VOLUME 10.3 fl (7.0-11.0); MONO # 4.2 (0.1-0.6); MONO % 7.8 % (1.0-6.0); RBC 3.58 10^6/uL (3.5-6.1); RED CELL DISTRIBUTION WIDTH 23.9 % (11.5-14.5)
[2017-10-23 10:40] LABS: WHITE BLOOD COUNT 53.3 10^3/ul (4.5-11.0)
--- NOTE | 2017-10-23 11:13 | CP.PCM.PN ---
Subjective - Date & Time of Evaluation Date of Evaluation: 10/23/17 Time of Evaluation: 07:30 - Subjective Subjective: Lavonne Herbert DO PGY1 - IM Progress Note Patient seen and examined at bedside. Per nursing staff, no acute events overnight. Patient is s/p IR guided percutaneous drainage of biliary tree and removal of obstructed CBD stent. Patient denies any chest pain, shortness of breath, fever, chills, abdominal pain, nausea, vomiting, diarrhea, constipation , pruritis. Continues to have cough productive of yellowish sputum, though cough medication has helped slightly. Objective - Vital Signs/Intake and Output Vital Signs (last 24 hours): Temp Pulse Resp BP Pulse Ox 97.8 F 92 H 19 114/74 93 L 10/23/17 08:45 10/23/17 08:45 10/23/17 08:45 10/23/17 08:45 10/23/17 08:45 Intake and Output: 10/23/17 10/23/17 06:59 18:59 Intake Total 2220 Output Total 805 Balance 1415 - Medications Medications: Current Medications Acetaminophen (Tylenol 325mg Tab) 650 mg PO Q4 PRN PRN Reason: Pain, Mild (1-3) Apixaban (Eliquis) 5 mg PO BID CHRISTOPHER PRN Reason: Protocol Last Admin: 10/23/17 10:31 Dose: 5 mg Aspirin (Ecotrin) 81 mg PO DAILY [facility] Last Admin: 10/23/17 10:31 Dose: 81 mg Digoxin (Lanoxin) 0.25 mg PO 1400 [facility] Last Admin: 10/22/17 13:47 Dose: 0.25 mg Furosemide (Lasix) 60 mg PO DAILY [facility] Last Admin: 10/22/17 09:48 Dose: 60 mg Guaifenesin (Robitussin) 100 mg PO Q4H PRN PRN Reason: Cough Last Admin: 10/23/17 05:23 Dose: 100 mg Meropenem (Merrem Iv 1 Gm Premix) 50 mls @ 100 mls/hr IVPB Q8 CHRISTOPHER PRN Reason: Protocol Last Admin: 10/23/17 05:23 Dose: 100 mls/hr Vancomycin HCl (Vancomycin 1gm) 1 gm in 250 mls @ 167 mls/hr IVPB 0600,1800 CHRISTOPHER PRN Reason: Protocol Last Admin: 10/23/17 07:34 Dose: 167 mls/hr Sodium Chloride (Sodium Chloride 0.9%) 1,000 mls @ 100 mls/hr IV .Q10H [facility] Ondansetron HCl (Zofran Inj) 4 mg IVP Q4H PRN PRN Reason: Nausea/Vomiting Oxycodone/Acetaminophen (Percocet 5/325 Mg Tab) 1 tab PO Q4H PRN PRN Reason: Pain, moderate (4-7) Stop: 10/25/17 12:17 Last Admin: 10/22/17 13:25 Dose: 1 tab Pantoprazole Sodium (Protonix Ec Tab) 40 mg PO 0600 [facility] Last Admin: 10/23/17 05:23 Dose: 40 mg Tamsulosin HCl (Flomax) 0.4 mg PO DAILY [facility] Last Admin: 10/23/17 10:31 Dose: 0.4 mg - Labs Labs: 10/23/17 09:30 10/23/17 06:00 PT 17.7 SECONDS (9.4-12.5) H 10/21/17 12:00 INR 1.53 (0.93-1.08) H 10/21/17 12:00 APTT 41.8 Seconds (25.1-36.5) H 10/21/17 12:00 - Additional Findings Additional findings: - Constitutional Appears: Non-toxic, No Acute Distress, Chronically Ill - Head Exam Head Exam: ATRAUMATIC, NORMOCEPHALIC - Eye Exam Eye Exam: EOMI, PERRL, Scleral icterus - ENT Exam ENT Exam: Mucous Membranes Moist - Neck Exam Neck Exam: Full ROM, Normal Inspection - Respiratory Exam Respiratory Exam: NORMAL BREATHING PATTERN Additional comments: Coarse breath sounds in b/l UL, faint rales in b/l LL Right chest port without surrounding erythema, drainage, bleeding, or tenderness - Cardiovascular Exam Cardiovascular Exam: REGULAR RHYTHM, +S1, +S2 - GI/Abdominal Exam GI & Abdominal Exam: Soft, Normal Bowel Sounds. absent: Distended, Firm, Guarding, Rigid, Tenderness - Extremities Exam Extremities Exam: Pedal Edema. absent: Calf Tenderness Additional comments: Anasarca, with 1+ pitting edema in all four extremities, diffusely - Neurological Exam Neurological Exam: Alert, Awake, Oriented x3 Neuro motor strength exam: Left Upper Extremity: 5, Right Upper Extremity: 5, Left Lower Extremity: 5, Right Lower Extremity: 5 - Psychiatric Exam Psychiatric exam: Normal Affect, Normal Mood - Skin Skin Exam: Dry, Intact Additional comments: Jaundice Assessment and Plan - Assessment and Plan (Free Text) Assessment: 66yo M PMH pancreatic CA, Afib (on Dig), CAD, R tinnitus, DM2, nephrolithiasis who presents after being seen by Dr. Rey and told to come in for his jaundice. s/p thoracentesis 10/18 with subsequent pneumothorax, now s/p chest tube placement draining serious fluid. s/p urgent ERCP attempted 10/18, failed to pass scope beyond duodenum. s/p percutaneous removal of obstructed CBD stent , drainage of CBD, with indwelling drain, draining dark green bilious fluid. Plan: 1. Hyperbilirubinemia 2/2 obstructed CBD stent with possible cholangitis - s/p percutaneous removal of obstructed CBD stent, drainage of CBD, with indwelling drain, draining dark green bilious fluid. - T bili elevated, now trending down; continue to monitor - Resume NS @ 100 - Continue IV Abx as below 2. Pleural effusion - CT chest showed RML and RLL consolidation vs atalectasis with associated large right pleural effusion - s/p thoracentesis, pleural fluid sent for cytology, protein, LDH, gram stain and culture - LDH and total protein low; likely transudative effusion 2/2 hypoalbuminemia - Cytology negative for malignant cells - Repeat CXR today ordered 3. Leukocytosis likely reactive 2/2 chemo vs cholangitis vs pneumonia - Pt currently afebrile, no abdominal pain - Leukocytosis markedly elevated today - Initial blood cultures and pleural fluid cultures negative; Ordered repeat BCx today, peripheral and through port - Patient continues to complain of cough; ordered CXR PA and Lateral - Continue merrem and vancomycin, per ID - ID consult requested, appreciate recs 4. Cough - Patient reports cough, productive of yellow sputum - Lung exam unchanged - CXR PA and Lat ordered - Patient already on vanc and merrem - Continue guifenasin PRN for cough; add kassie martin 5. Hx Afib; hx of SVC thrombus - Cont Digoxin - Resume eliquis today, 5mg PO BID, per discussion with hem/onc Hx GERD and gastric obstruction w/ gastric erosions and prior GI bleed s/p emergent gastrojejunostomy and enteroenterostomy in 03/2016 - PTX for GI ppx - H&H stable 6. Hx Pancreatic cancer - Dr. Rey consulted - Monitor for any changes - No significant abdominal distention at this time 8. Hx GERD and gastric obstruction w/ gastric erosions and a prior GI bleed s/p emergent gastrojejunostomy and enteroenterostomy in 03/2016 - PTX for GI ppx - H&H stable 9. Hx CAD s/p stent - ASA 81mg daily 10. BPH - Flomax home dose GI Ppx: Protonix DVT Ppx: Lovenox 40 SC daily Patient was seen, examined and discussed with attending, Dr. Loving
[2017-10-23] MEDS: Sodium Chloride 0.9% 1,000 ML IV SCH (11:54)
--- NOTE | 2017-10-23 12:23 | RAD ---
HISTORY: cough; recent pleural effusion; recent pneumo COMPARISON: 10/21/2017 TECHNIQUE: Chest PA and lateral FINDINGS: LUNGS: Bibasilar infiltrates and effusions are seen showing no significant change PLEURA: No significant pleural effusion identified. No pneumothorax apparent. CARDIOVASCULAR: Mild cardiomegaly OSSEOUS STRUCTURES: No significant abnormalities. VISUALIZED UPPER ABDOMEN: Normal. OTHER FINDINGS: None. IMPRESSION: Bibasilar infiltrates and effusions unchanged
[2017-10-23] MEDS: Digoxin 250 mcg (0.25 mg) Tab PO SCH (13:39)
--- NOTE | 2017-10-23 17:38 | CP.PCM.PN ---
Subjective - Date & Time of Evaluation Date of Evaluation: 10/23/17 Time of Evaluation: 11:05 - Subjective Subjective: No fevers, not in distress, afebrile but has some loose stools. Objective - Vital Signs/Intake and Output Vital Signs (last 24 hours): Temp Pulse Resp BP Pulse Ox 97.8 F 92 H 19 114/74 93 L 10/23/17 08:45 10/23/17 08:45 10/23/17 08:45 10/23/17 08:45 10/23/17 08:45 Intake and Output: 10/23/17 10/23/17 06:59 18:59 Intake Total 2220 Output Total 805 Balance 1415 - Medications Medications: Current Medications Acetaminophen (Tylenol 325mg Tab) 650 mg PO Q4 PRN PRN Reason: Pain, Mild (1-3) Apixaban (Eliquis) 5 mg PO BID CHRISTOPHER PRN Reason: Protocol Last Admin: 10/23/17 09:24 Dose: Not Given Aspirin (Ecotrin) 81 mg PO DAILY [facility] Last Admin: 10/22/17 10:43 Dose: Not Given Digoxin (Lanoxin) 0.25 mg PO 1400 [facility] Last Admin: 10/22/17 13:47 Dose: 0.25 mg Furosemide (Lasix) 60 mg PO DAILY [facility] Last Admin: 10/22/17 09:48 Dose: 60 mg Guaifenesin (Robitussin) 100 mg PO Q4H PRN PRN Reason: Cough Last Admin: 10/23/17 05:23 Dose: 100 mg Meropenem (Merrem Iv 1 Gm Premix) 50 mls @ 100 mls/hr IVPB Q8 CHRISTOPHER PRN Reason: Protocol Last Admin: 10/23/17 05:23 Dose: 100 mls/hr Vancomycin HCl (Vancomycin 1gm) 1 gm in 250 mls @ 167 mls/hr IVPB 0600,1800 CHRISTOPHER PRN Reason: Protocol Last Admin: 10/23/17 07:34 Dose: 167 mls/hr Sodium Chloride (Sodium Chloride 0.45%) 1,000 mls @ 80 mls/hr IV .[id number] [facility] Stop: 10/23/17 12:00 Ondansetron HCl (Zofran Inj) 4 mg IVP Q4H PRN PRN Reason: Nausea/Vomiting Oxycodone/Acetaminophen (Percocet 5/325 Mg Tab) 1 tab PO Q4H PRN PRN Reason: Pain, moderate (4-7) Stop: 10/25/17 12:17 Last Admin: 10/22/17 13:25 Dose: 1 tab Pantoprazole Sodium (Protonix Ec Tab) 40 mg PO 0600 [facility] Last Admin: 10/23/17 05:23 Dose: 40 mg Tamsulosin HCl (Flomax) 0.4 mg PO DAILY [facility] Last Admin: 10/22/17 09:46 Dose: 0.4 mg - Labs Labs: 10/23/17 06:00 10/23/17 06:00 PT 17.7 SECONDS (9.4-12.5) H 10/21/17 12:00 INR 1.53 (0.93-1.08) H 10/21/17 12:00 APTT 41.8 Seconds (25.1-36.5) H 10/21/17 12:00 - Constitutional Appears: Chronically Ill - Head Exam Head Exam: NORMAL INSPECTION - Neck Exam Neck Exam: absent: Meningismus - Respiratory Exam Respiratory Exam: Decreased Breath Sounds - Cardiovascular Exam Cardiovascular Exam: +S1, +S2 - GI/Abdominal Exam GI & Abdominal Exam: Soft. absent: Tenderness Assessment and Plan - Assessment and Plan (Free Text) Plan: Assessment Systemic inflammatory response syndrome, R/O severe sepsis due to acute cholangitis in this patient with pancreatic cancer with gastric outlet obstruction S/P gastrojejunostomy, on chemotherapy, S/P pancreatic stent placement atrial fibrillation CAD S/P PCI DM history of nephrolithiasis Plan continue Vancomycin and Merrem day 5; follow up repeat septic work up since WBC count is now markedly elevated -if patient develops watery diarrhea will start PO Vanco and check stool for C. diff. will continue to monitor clinically overall prognosis is poor
--- NOTE | 2017-10-23 18:44 | CON ---
DATE: 10/23/2017 REASON FOR CONSULTATION: Pancreatic cancer, rising bilirubin as well as rising WBC count. HISTORY OF PRESENT ILLNESS: The patient is a 66-year-old male with past medical history significant for pancreatic carcinoma, locally advanced with metastatic disease to the liver, status post gastrojejunostomy due to a gastric outlet obstruction, and pancreatic stent placement in the past almost 2 years ago, known atrial fibrillation, coronary artery disease status post stent, diabetes type 2, and nephrolithiasis. He was admitted secondary to worsening jaundice where his bilirubin's had been within normal limits and when last visited in the office, patient was noted to be visibly jaundiced and his total bilirubin's had risen way past the upper limits of normal. He also was complaining of shortness of breath upon exertion, when he was admitted and now, he is status post paracentesis and feels a lot better. He also had a stent changed by Dr. Terrence Dorantes yesterday and his abdominal symptoms are also much better, although his white count this morning is 53,000. His last Neulasta was approximately 2 weeks ago, which would not be active at this point. He denies any fevers or chills, looks much better. Denies any other complaint and has not had any urinary symptoms or cough either. PAST MEDICAL HISTORY: As above, stated in the HPI. PAST SURGICAL HISTORY: Gastrojejunostomy, pancreatic stent, and cardiac stent. SOCIAL HISTORY: He is a former smoker, also prior EtOH and marijuana use, but denies any current use. Lives alone. FAMILY HISTORY: Otherwise noncontributory. REVIEW OF SYSTEMS: As per the HPI. PHYSICAL EXAMINATION: VITAL SIGNS: Reveal a temperature of 97.9, pulse of 87, respiratory rate of 18, and a blood pressure of 180/60. GENERAL: The patient is an elderly pleasant male, sitting up in chair, in no acute distress. HEAD AND NECK: Normocephalic, atraumatic. Eyes: Pupils are equal, round, and reactive to light and accommodation. Extraocular muscles are intact. There is some pallor. No icterus is noted. Neck is supple with no adenopathy. No JVD. No thyromegaly. LUNGS: Decreased breath sounds bilaterally at bases. CARDIOVASCULAR: S1 and S2 heard. ABDOMEN: Positive bowel sounds. Soft, nontender, and nondistended. No organomegaly is palpated. EXTREMITIES: There is bilateral lower extremity edema, but much better than admission. LABORATORY DATA: He is completely jaundiced. His white count is 53.3, hemoglobin of 12.5, hematocrit of 35.3, and a platelet count of 429. Chemistries reveal a BUN and creatinine of 25 and 1.4. Total bilirubin is 16.7 today, it was 17.1 yesterday, so down trending. ASSESSMENT AND PLAN: Elderly male with metastatic pancreatic cancer, now admitted with cholangitis, status post stent placement and change by Interventional Radiology, attempted by Gastrointestinal initially and unsuccessful, now with leukocytosis post stent placement, must rule out sepsis. He has been cultured and covered by broad-spectrum antibiotics. This is not an effect of Neulasta as patient has not had any Neulasta in over 2 weeks, would completely work up for infectious etiology prior to further evaluation, also trend bilirubin's. Overall prognosis in this patient is poor, have discussed it with him as well as family on multiple occasions. He is aware of his overall prognosis. Thank you for the consult. We will follow. Dalia Rey MD
[2017-10-24] MEDS: Sodium Chloride 0.9% 1,000 ML IV SCH ×2 (01:54→17:23)
[2017-10-24] MEDS: Pantoprazole 40 mg EC Tab PO SCH (05:12)
[2017-10-24] MEDS: Meropenem IV 1 gm in NS 50 ML IVPB SCH ×3 (05:12→21:45)
[2017-10-24] MEDS: Vancomycin 1gm in NS 250ml 1 GM/250 ML BAG IVPB SCH ×2 (05:12→18:10)
[2017-10-24 05:51] LABS: BASO # 0.04 K/mm3 (0.0-2.0); BASO % 0.1 % (0.0-3.0); EOS # 0.6 (0.0-0.7); EOS % 1.8 % (1.5-5.0); GRAN # 29.06 (1.4-6.5); GRAN % 84.6 % (50.0-68.0); HEMOGLOBIN 9.4 g/dL (14.0-18.0); LYMPH # 0.9 (1.2-3.4); LYMPH % 2.6 % (22.0-35.0); MEAN CELL VOLUME 97.8 fl (80.0-105.0); MEAN CORPUSCULAR HEMOGLOBIN 33.7 pg (25.0-35.0); MEAN CORPUSCULAR HGB CONC 34.4 g/dl (31.0-37.0); MEAN PLATELET VOLUME 9.8 fl (7.0-11.0); MONO # 3.7 (0.1-0.6); MONO % 10.9 % (1.0-6.0); RBC 2.79 10^6/uL (3.5-6.1)
[2017-10-24 06:02] LABS: WHITE BLOOD COUNT 34.4 10^3/ul (4.5-11.0)
[2017-10-24 06:37] LABS: ALB/GLOB RATIO 0.7 (1.1-1.8); ALBUMIN 2.1 g/dL (3.0-4.8); CALCIUM 8.4 mg/dL (8.4-10.5)
[2017-10-24] MEDS ORDERED: Barium Sulfate Susp 2.1% w/v, 2.0% w/w 450 mL Bottle PO ONE (10:27)
--- NOTE | 2017-10-24 11:13 | CP.PCM.PN ---
<Lavonne Herbert - Last Filed: 10/24/17 11:19> Subjective - Date & Time of Evaluation Date of Evaluation: 10/24/17 Time of Evaluation: 07:30 - Subjective Subjective: Renatoakila Keon DO PGY1 - IM Progress Note Patient seen and examined at bedside. Per nursing staff, patient has had some loose bowel movements yesterday. Patient continues to have cough productive of yellow sputum, patient reports mild improvement subjectively, but was coughing throughout entire encounter. Patient denies any chest pain or shortness of breath, fever, chills, nausea, vomiting. Does endorse diarrhea, several episodes yesterday. Denies abdominal pain. Objective - Vital Signs/Intake and Output Vital Signs (last 24 hours): Temp Pulse Resp BP Pulse Ox 97.4 F L 79 18 129/81 97 10/24/17 08:40 10/24/17 08:40 10/24/17 08:40 10/24/17 09:25 10/24/17 08:40 Intake and Output: 10/24/17 10/24/17 06:59 18:59 Intake Total 3500 Output Total 300 Balance 3200 - Medications Medications: Current Medications Acetaminophen (Tylenol 325mg Tab) 650 mg PO Q4 PRN PRN Reason: Pain, Mild (1-3) Apixaban (Eliquis) 5 mg PO BID [facility] PRN Reason: Protocol Last Admin: 10/24/17 09:26 Dose: 5 mg Aspirin (Ecotrin) 81 mg PO DAILY [facility] Last Admin: 10/24/17 09:26 Dose: 81 mg Benzonatate (Tessalon Perles) 100 mg PO TID PRN PRN Reason: Cough Last Admin: 10/23/17 21:26 Dose: 100 mg Digoxin (Lanoxin) 0.25 mg PO 1400 [facility] Last Admin: 10/23/17 13:39 Dose: 0.25 mg Furosemide (Lasix) 60 mg PO DAILY [facility] Last Admin: 10/24/17 09:25 Dose: 60 mg Guaifenesin (Robitussin) 100 mg PO Q4H PRN PRN Reason: Cough Last Admin: 10/23/17 05:23 Dose: 100 mg Meropenem (Merrem Iv 1 Gm Premix) 50 mls @ 100 mls/hr IVPB Q8 [facility] PRN Reason: Protocol Last Admin: 10/24/17 05:12 Dose: 100 mls/hr Vancomycin HCl (Vancomycin 1gm) 1 gm in 250 mls @ 167 mls/hr IVPB 0600,1800 [facility] PRN Reason: Protocol Last Admin: 10/24/17 05:12 Dose: 167 mls/hr Sodium Chloride (Sodium Chloride 0.9%) 1,000 mls @ 100 mls/hr IV .Q10H [facility] Last Admin: 10/24/17 01:54 Dose: 100 mls/hr Ondansetron HCl (Zofran Inj) 4 mg IVP Q4H PRN PRN Reason: Nausea/Vomiting Oxycodone/Acetaminophen (Percocet 5/325 Mg Tab) 1 tab PO Q4H PRN PRN Reason: Pain, moderate (4-7) Stop: 10/25/17 12:17 Last Admin: 10/22/17 13:25 Dose: 1 tab Pantoprazole Sodium (Protonix Ec Tab) 40 mg PO 0600 [facility] Last Admin: 10/24/17 05:12 Dose: 40 mg Tamsulosin HCl (Flomax) 0.4 mg PO DAILY [facility] Last Admin: 10/24/17 09:26 Dose: 0.4 mg - Labs Labs: 10/24/17 05:30 10/24/17 05:30 PT 17.7 SECONDS (9.4-12.5) H 10/21/17 12:00 INR 1.53 (0.93-1.08) H 10/21/17 12:00 APTT 41.8 Seconds (25.1-36.5) H 10/21/17 12:00 - Constitutional Appears: Non-toxic, No Acute Distress, Older Than Stated Age, Chronically Ill, Other (Patient appears uncomfortable, tired, tripoding) - Head Exam Head Exam: ATRAUMATIC, NORMOCEPHALIC - Eye Exam Eye Exam: EOMI, PERRL, Scleral icterus - ENT Exam ENT Exam: Mucous Membranes Moist - Neck Exam Neck Exam: Normal Inspection - Respiratory Exam Respiratory Exam: Decreased Breath Sounds, Rhonchi (b/l UL) Additional comments: Mild tachypnea - Cardiovascular Exam Cardiovascular Exam: RRR, +S1, +S2 - GI/Abdominal Exam GI & Abdominal Exam: Soft, Normal Bowel Sounds. absent: Tenderness Additional comments: Drain in place, with dark green fluid in bag - Extremities Exam Extremities Exam: absent: Calf Tenderness Additional comments: 1-2+ pitting edema in all four extremities - Neurological Exam Neurological Exam: Alert, Awake, Oriented x3 - Psychiatric Exam Psychiatric exam: Normal Affect, Normal Mood - Skin Skin Exam: Dry, Intact Additional comments: Jaundice Assessment and Plan - Assessment and Plan (Free Text) Assessment: 66yo M PMH pancreatic CA, Afib (on Dig), CAD, R tinnitus, DM2, nephrolithiasis who presents after being seen by Dr. Rey and told to come in for his jaundice. s/p thoracentesis 10/18 with subsequent pneumothorax, now s/p chest tube placement draining serious fluid. s/p urgent ERCP attempted 10/18, failed to pass scope beyond duodenum. s/p percutaneous removal of obstructed CBD stent , drainage of CBD, with indwelling drain, draining dark green bilious fluid. Coughing, in mild respiratory distress. Plan: Hyperbilirubinemia 2/2 obstructed CBD stent with possible cholangitis - s/p percutaneous removal of obstructed CBD stent, drainage of CBD, with indwelling drain, draining dark green bilious fluid. - T bili elevated, now trending down; continue to monitor - Continue NS @ 100 - Continue IV Abx as below Pleural effusion and cough - CT chest showed RML and RLL consolidation vs atalectasis with associated large right pleural effusion - s/p thoracentesis, pleural fluid sent for cytology, protein, LDH, gram stain and culture - LDH and total protein low; likely transudative effusion 2/2 hypoalbuminemia - Cytology negative for malignant cells - Repeat CXR yesterday shows apparent new consolidation vs fluid collection - Patient has persistent productive cough, in mild respiratory distress; ordered CT scan of the chest to r/o new PNA, complication, or fluid collection - Continue guifenasin and tessalon perles PRN for cough Leukocytosis likely reactive 2/2 chemo vs cholangitis vs pneumonia - Pt remains afebrile; no abdominal pain - Leukocytosis remains markedly elevated, though trended down slightly - Procal markedly elevated; >23 - Initial blood cultures and pleural fluid cultures negative - Repeat BCx collected peripherally and through port; pending - CXR and pulm findings as above; repeat CT ordered, pending - Continue merrem and vancomycin, per ID - Random vanc level ordered - Patient also has diarrhea; ordered stool for C diff - ID consult requested, appreciate recs MAGALY - Cr elevated today, trended up x2 days - Likely 2/2 dehydration 2/2 diarrhea - Hold PO lasix - Ordered Urine urea and creatinine to calculate FEUrea - Renally dose all medications - Vanc level ordered Hx Afib; hx of SVC thrombus - Cont Digoxin - Continue eliquis 5mg PO BID, per discussion with hem/onc Hx GERD and gastric obstruction w/ gastric erosions and prior GI bleed s/p emergent gastrojejunostomy and enteroenterostomy in 03/2016 - PTX for GI ppx - H&H stable Hx Pancreatic cancer - Dr. Rey consulted - Monitor for any changes - No significant abdominal distention at this time Hx CAD s/p stent - ASA 81mg daily BPH - Flomax home dose GI Ppx: Protonix DVT Ppx: Eliquis Patient was seen, examined and discussed with attending, Dr. Loving <Bryan Loving - Last Filed: 10/25/17 14:30> Objective - Vital Signs/Intake and Output Vital Signs (last 24 hours): Temp Pulse Resp BP Pulse Ox 97.3 F L 92 H 20 121/68 100 10/25/17 10:12 10/25/17 10:12 10/25/17 10:12 10/25/17 10:12 10/25/17 10:12 Intake and Output: 10/25/17 10/25/17 06:59 18:59 Intake Total 3300 1320 Output Total 550 500 Balance 2750 820 - Medications Medications: Current Medications Acetaminophen (Tylenol 325mg Tab) 650 mg PO Q4 PRN PRN Reason: Pain, Mild (1-3) Apixaban (Eliquis) 5 mg PO BID [facility] PRN Reason: Protocol Last Admin: 10/25/17 09:22 Dose: 5 mg Aspirin (Ecotrin) 81 mg PO DAILY [facility] Last Admin: 10/25/17 09:22 Dose: 81 mg Benzonatate (Tessalon Perles) 100 mg PO TID PRN PRN Reason: Cough Last Admin: 10/24/17 21:45 Dose: 100 mg Digoxin (Lanoxin) 0.25 mg PO 1400 [facility] Last Admin: 10/25/17 13:38 Dose: 0.25 mg Furosemide (Lasix) 20 mg IVP Q12 [facility] Last Admin: 10/25/17 12:02 Dose: Not Given Guaifenesin (Robitussin) 100 mg PO Q4H PRN PRN Reason: Cough Last Admin: 10/23/17 05:23 Dose: 100 mg Meropenem (Merrem Iv 1 Gm Premix) 50 mls @ 100 mls/hr IVPB Q12 [facility] PRN Reason: Protocol Ondansetron HCl (Zofran Inj) 4 mg IVP Q4H PRN PRN Reason: Nausea/Vomiting Pantoprazole Sodium (Protonix Ec Tab) 40 mg PO 0600 [facility] Last Admin: 10/25/17 05:15 Dose: 40 mg Tamsulosin HCl (Flomax) 0.4 mg PO DAILY [facility] Last Admin: 10/25/17 09:22 Dose: 0.4 mg - Labs Labs: 10/25/17 05:30 10/25/17 05:30 PT 26.4 SECONDS (9.4-12.5) H 10/25/17 09:45 INR 2.26 (0.93-1.08) H 10/25/17 09:45 APTT 50.2 Seconds (25.1-36.5) H 10/25/17 09:45 Attending/Attestation - Attestation I have personally seen and examined this patient.: Yes I have fully participated in the care of the patient.: Yes I have reviewed all pertinent clinical information, including history, physical exam and plan: Yes Notes (Text): 10/25/17 14:26 Patient was seen and examined with medical records technician. 66 year old male with PMH of pancreatic cancer, afib, CAD, and diabetes was admitted with obstructive Jaundic, with possible obstructed CBD stent, possible cholangitis and also had pleural effusion,he had failed ERCP attempt, underwent percutaneous drainage on Sunday. LFT are coming down.Patient is on IV Meropenem as per ID,Vancomycin is on hold. Repeat CT chest showed bilateral Pleural effusion and residual right sided Pneumothorax.Patient underwent thoracentesis by IR today, we will follow up results. Creatinine is increasing, etiology of worsening renal failure is multifactorial , we will hold lasix as patient is having diarrhea, we will get stool studies for c diff colitis. Prognosis is guarded.
--- NOTE | 2017-10-24 12:35 | CT ---
PROCEDURE: CT Chest, Abdomen and Pelvis without intravenous contrast HISTORY: rule out intra-abdominal infection COMPARISON: CT 10/19/2017 TECHNIQUE: Radiation dose: Total exam DLP = 1310 mGy-cm. This CT exam was performed using one or more of the following dose reduction techniques: Automated exposure control, adjustment of the mA and/or kV according to patient size, and/or use of iterative reconstruction technique. FINDINGS: CT CHEST WITHOUT CONTRAST: LUNGS: Small bibasilar infiltrates adjacent to the large pleural effusions. MEDIASTINUM: Unremarkable. Normal caliber aorta and pulmonary arterial trunk. Normal size heart. LYMPH NODES: Unremarkable. PLEURA: There is a small residual pneumothorax on the right. Large bilateral pleural effusions BONES: Unremarkable. OTHER FINDINGS: None. CT ABDOMEN AND PELVIS: LIVER: There is a percutaneous drainage catheter in the left lobe of the liver extending through the common duct and into the duodenum. There is improvement in the intrahepatic ductal dilatation seen previously. GALLBLADDER AND BILE DUCTS: The gallbladder is contracted PANCREAS: Unremarkable. No gross lesion or ductal dilatation. SPLEEN: Unremarkable. ADRENALS: Unremarkable. No mass. KIDNEYS AND URETERS: Large stones are seen in both kidneys. There is no evidence of hydronephrosis VASCULATURE: Unremarkable. No aortic aneurysm. BOWEL: Unremarkable. No obstruction. No gross mural thickening. APPENDIX: Normal appendix. PERITONEUM: There is a small amount of ascites LYMPH NODES: Unremarkable. No enlarged lymph nodes. BLADDER: Unremarkable. REPRODUCTIVE: Unremarkable. BONES: Multilevel disc degeneration OTHER FINDINGS: Extensive subcutaneous edema is seen consistent with anasarca. IMPRESSION: Large pleural effusions. Minimal residual pneumothorax on the right. Percutaneous drainage catheter in the liver with improvement in ductal dilatation. Large bilateral renal stones. Mild ascites. Anasarca
[2017-10-24] MEDS: Digoxin 250 mcg (0.25 mg) Tab PO SCH (13:51)
--- NOTE | 2017-10-24 14:44 | CP.PCM.PN ---
Subjective - Date & Time of Evaluation Date of Evaluation: 10/24/17 Time of Evaluation: 10:40 - Subjective Subjective: No abdominal pain, no diarrhea, no today, no fevers, no nausea or vomiting. Objective - Vital Signs/Intake and Output Vital Signs (last 24 hours): Temp Pulse Resp BP Pulse Ox 97.4 F L 79 18 129/81 97 10/24/17 08:40 10/24/17 08:40 10/24/17 08:40 10/24/17 09:25 10/24/17 08:40 Intake and Output: 10/24/17 10/24/17 06:59 18:59 Intake Total 3500 Output Total 300 Balance 3200 - Medications Medications: Current Medications Acetaminophen (Tylenol 325mg Tab) 650 mg PO Q4 PRN PRN Reason: Pain, Mild (1-3) Apixaban (Eliquis) 5 mg PO BID [facility] PRN Reason: Protocol Last Admin: 10/24/17 09:26 Dose: 5 mg Aspirin (Ecotrin) 81 mg PO DAILY [facility] Last Admin: 10/24/17 09:26 Dose: 81 mg Benzonatate (Tessalon Perles) 100 mg PO TID PRN PRN Reason: Cough Last Admin: 10/24/17 12:13 Dose: 100 mg Digoxin (Lanoxin) 0.25 mg PO 1400 [facility] Last Admin: 10/24/17 13:51 Dose: 0.25 mg Furosemide (Lasix) 60 mg PO DAILY [facility] Last Admin: 10/24/17 09:25 Dose: 60 mg Guaifenesin (Robitussin) 100 mg PO Q4H PRN PRN Reason: Cough Last Admin: 10/23/17 05:23 Dose: 100 mg Meropenem (Merrem Iv 1 Gm Premix) 50 mls @ 100 mls/hr IVPB Q8 [facility] PRN Reason: Protocol Last Admin: 10/24/17 13:51 Dose: 100 mls/hr Vancomycin HCl (Vancomycin 1gm) 1 gm in 250 mls @ 167 mls/hr IVPB 0600,1800 [facility] PRN Reason: Protocol Last Admin: 10/24/17 05:12 Dose: 167 mls/hr Sodium Chloride (Sodium Chloride 0.9%) 1,000 mls @ 100 mls/hr IV .Q10H [facility] Last Admin: 10/24/17 01:54 Dose: 100 mls/hr Ondansetron HCl (Zofran Inj) 4 mg IVP Q4H PRN PRN Reason: Nausea/Vomiting Oxycodone/Acetaminophen (Percocet 5/325 Mg Tab) 1 tab PO Q4H PRN PRN Reason: Pain, moderate (4-7) Stop: 10/25/17 12:17 Last Admin: 10/22/17 13:25 Dose: 1 tab Pantoprazole Sodium (Protonix Ec Tab) 40 mg PO 0600 [facility] Last Admin: 10/24/17 05:12 Dose: 40 mg Tamsulosin HCl (Flomax) 0.4 mg PO DAILY [facility] Last Admin: 10/24/17 09:26 Dose: 0.4 mg - Labs Labs: 10/24/17 05:30 10/24/17 05:30 PT 17.7 SECONDS (9.4-12.5) H 10/21/17 12:00 INR 1.53 (0.93-1.08) H 10/21/17 12:00 APTT 41.8 Seconds (25.1-36.5) H 10/21/17 12:00 - Constitutional Appears: Chronically Ill - Head Exam Head Exam: NORMAL INSPECTION - Eye Exam Eye Exam: Scleral icterus - ENT Exam ENT Exam: Mucous Membranes Moist - Neck Exam Neck Exam: absent: Meningismus - Respiratory Exam Respiratory Exam: Decreased Breath Sounds - Cardiovascular Exam Cardiovascular Exam: +S1, +S2 - GI/Abdominal Exam GI & Abdominal Exam: Soft. absent: Tenderness Assessment and Plan - Assessment and Plan (Free Text) Plan: Assessment Systemic inflammatory response syndrome, R/O severe sepsis due to acute cholangitis in this patient with pancreatic cancer with gastric outlet obstruction S/P gastrojejunostomy, on chemotherapy, S/P pancreatic stent placement atrial fibrillation CAD S/P PCI DM history of nephrolithiasis Plan continue Vancomycin and Merrem day 6; follow up repeat septic work up from yesterday since WBC count is now markedly elevated - if patient develops watery diarrhea will start PO Vanco and check stool for C. diff. will continue to monitor clinically overall prognosis is poor
[2017-10-24 16:20] LABS: URINE BILIRUBIN LARGE (NEGATIVE); URINE BLOOD LARGE (NEGATIVE); URINE GLUCOSE (UA) NEGATIVE (NEGATIVE); URINE LEUKOCYTE ESTERASE TRACE Leu/uL (NEGATIVE); URINE PROTEIN 100 mg/dL (<30 mg/dL); URINE UROBILINOGEN 0.2 E.U./dL (<1 E.U./dL)
[2017-10-24 16:43] LABS: URINE APPEARANCE CLOUDY (CLEAR); URINE COLOR YELLOW (YELLOW)
[2017-10-24 16:46] LABS: CREATININE,RANDOM URINE 47 mg/dL
[2017-10-24 16:52] LABS: URINE BACTERIA MOD (NEG); URINE RBC 25 - 30 /hpf (0-2); URINE WBC 15 - 20 /hpf (0-6)
[2017-10-24 16:57] LABS: URINE COARSE GRANULAR CAST TRACE /hpf (0-2)
[2017-10-24 17:03] LABS: BODY FLUID TYPE PLEURAL
--- NOTE | 2017-10-24 17:12 | US ---
PROCEDURE: Ultrasound guided right thoracentesis. CLINICAL HISTORY: Metastatic pancreatic CA. Recurrent bilateral pleural effusions. Shortness of breath. Possible empyema. Needs repeat thoracentesis PHYSICIAN(S): Terrence Dorantes MD. TECHNIQUE: The relative risks and indications of the procedure were explained to the patient and consent obtained. The patient was placed in a sitting position on the stretcher and sonography of the right chest performed. This revealed a moderate to large rightpleural effusion. A right posterolateral intercostal approach was selected and the area prepped and draped usual sterile fashion. 1% Xylocaine was used to anesthetize the skin and soft tissues. A 7 Armenian thoracentesis catheter was trocared into the right pleural cavity and 1800 ccof clear, somewhat bilious fluid aspirated. Specimens were sent to the lab. IMPRESSION: 1. Ultrasound guided right thoracentesis. 1800 cc of clear, somewhat biliousfluid were aspirated.
[2017-10-24 18:35] LABS: BF GROSS APPEARANCE SL CLOUDY (CLEAR); BODY FLUID MONO/MACROPHAGE 38 % (0-0); BODY FLUID TOTAL COUNT 100 (0-0)
[2017-10-25] MEDS: Meropenem IV 1 gm in NS 50 ML IVPB SCH ×2 (05:14→21:10)
[2017-10-25] MEDS: Pantoprazole 40 mg EC Tab PO SCH (05:15)
[2017-10-25 05:33] LABS: BASO # 0.04 K/mm3 (0.0-2.0); BASO % 0.1 % (0.0-3.0); EOS % 3.4 % (1.5-5.0); GRAN # 25.1 (1.4-6.5); GRAN % 83.3 % (50.0-68.0); HEMOGLOBIN 8.9 g/dL (14.0-18.0); LYMPH # 0.8 (1.2-3.4); LYMPH % 2.8 % (22.0-35.0); MEAN CELL VOLUME 97.7 fl (80.0-105.0); MEAN CORPUSCULAR HEMOGLOBIN 34.5 pg (25.0-35.0); MEAN CORPUSCULAR HGB CONC 35.3 g/dl (31.0-37.0); MEAN PLATELET VOLUME 10.3 fl (7.0-11.0); MONO # 3.2 (0.1-0.6); MONO % 10.4 % (1.0-6.0); RBC 2.58 10^6/uL (3.5-6.1); RED CELL DISTRIBUTION WIDTH 23.2 % (11.5-14.5)
[2017-10-25 05:52] LABS: WHITE BLOOD COUNT 30.2 10^3/ul (4.5-11.0)
[2017-10-25 07:15] LABS: ALB/GLOB RATIO 0.7 (1.1-1.8); CALCIUM 7.8 mg/dL (8.4-10.5)
--- NOTE | 2017-10-25 08:29 | RAD ---
PROCEDURE: CHEST RADIOGRAPH, 1 VIEW HISTORY: rt thora COMPARISON: 10/23/2017 FINDINGS: LUNGS: Clear. PLEURA: There is a minimal pneumothorax at the right lung base following thoracentesis. No change in left-sided effusion. CARDIOVASCULAR: Moderate cardiomegaly OSSEOUS STRUCTURES: No significant abnormalities. VISUALIZED UPPER ABDOMEN: Normal. OTHER FINDINGS: None. IMPRESSION: Minimal pneumothorax at the right lung base following thoracentesis
[2017-10-25 10:21] LABS: INR 2.26 (0.93-1.08); PARTIAL THROMBOPLASTIN TIME 50.2 Seconds (25.1-36.5); PROTHROMBIN TIME 26.4 SECONDS (9.4-12.5)
--- NOTE | 2017-10-25 10:46 | CP.PCM.PN ---
<Lavonne Herbert - Last Filed: 10/25/17 10:41> Subjective - Date & Time of Evaluation Date of Evaluation: 10/25/17 Time of Evaluation: 07:30 - Subjective Subjective: Lavonne Herbert DO PGY1 - IM Progress Note Patient seen and examined at bedside. Per nursing staff, no acute events events overnight. Patient continues to have clear rhinorrhea and cough, productive of yellowish sputum. He denies fever, chest pain, abdominal pain, nausea, vomiting. Continues to have waterry diarrhea. Shortness of breath is slightly improved s/p thoracentesis. Objective - Vital Signs/Intake and Output Vital Signs (last 24 hours): Temp Pulse Resp BP Pulse Ox 97.3 F L 92 H 20 121/68 100 10/25/17 10:12 10/25/17 10:12 10/25/17 10:12 10/25/17 10:12 10/25/17 10:12 Intake and Output: 10/25/17 10/25/17 06:59 18:59 Intake Total 3300 600 Output Total 550 200 Balance 2750 400 - Medications Medications: Current Medications Acetaminophen (Tylenol 325mg Tab) 650 mg PO Q4 PRN PRN Reason: Pain, Mild (1-3) Apixaban (Eliquis) 5 mg PO BID [facility] PRN Reason: Protocol Last Admin: 10/25/17 09:22 Dose: 5 mg Aspirin (Ecotrin) 81 mg PO DAILY [facility] Last Admin: 10/25/17 09:22 Dose: 81 mg Benzonatate (Tessalon Perles) 100 mg PO TID PRN PRN Reason: Cough Last Admin: 10/24/17 21:45 Dose: 100 mg Digoxin (Lanoxin) 0.25 mg PO 1400 [facility] Last Admin: 10/24/17 13:51 Dose: 0.25 mg Furosemide (Lasix) 20 mg IVP Q12 [facility] Guaifenesin (Robitussin) 100 mg PO Q4H PRN PRN Reason: Cough Last Admin: 10/23/17 05:23 Dose: 100 mg Meropenem (Merrem Iv 1 Gm Premix) 50 mls @ 100 mls/hr IVPB Q12 [facility] PRN Reason: Protocol Ondansetron HCl (Zofran Inj) 4 mg IVP Q4H PRN PRN Reason: Nausea/Vomiting Oxycodone/Acetaminophen (Percocet 5/325 Mg Tab) 1 tab PO Q4H PRN PRN Reason: Pain, moderate (4-7) Stop: 10/25/17 12:17 Last Admin: 10/22/17 13:25 Dose: 1 tab Pantoprazole Sodium (Protonix Ec Tab) 40 mg PO 0600 [facility] Last Admin: 10/25/17 05:15 Dose: 40 mg Tamsulosin HCl (Flomax) 0.4 mg PO DAILY [facility] Last Admin: 10/25/17 09:22 Dose: 0.4 mg - Labs Labs: 10/25/17 05:30 10/25/17 05:30 PT 26.4 SECONDS (9.4-12.5) H 10/25/17 09:45 INR 2.26 (0.93-1.08) H 10/25/17 09:45 APTT 50.2 Seconds (25.1-36.5) H 10/25/17 09:45 - Additional Findings Additional findings: - Constitutional Appears: Non-toxic, No Acute Distress, Older Than Stated Age, Chronically Ill - Head Exam Head Exam: ATRAUMATIC, NORMOCEPHALIC - Eye Exam Eye Exam: EOMI, PERRL, Scleral icterus - ENT Exam ENT Exam: Mucous Membranes Moist - Neck Exam Neck Exam: Normal Inspection - Respiratory Exam Respiratory Exam: Decreased Breath Sounds, Rhonchi (b/l UL) - Cardiovascular Exam Cardiovascular Exam: RRR, +S1, +S2 - GI/Abdominal Exam GI & Abdominal Exam: Soft, Normal Bowel Sounds. absent: Tenderness Additional comments: Drain in place, with dark green fluid in bag - Extremities Exam Extremities Exam: absent: Calf Tenderness Additional comments: 1-2+ pitting edema in all four extremities - Neurological Exam Neurological Exam: Alert, Awake, Oriented x3 - Psychiatric Exam Psychiatric exam: Normal Affect, Normal Mood - Skin Skin Exam: Dry, Intact Additional comments: Jaundice, improving Assessment and Plan - Assessment and Plan (Free Text) Assessment: 66yo M PMH pancreatic CA, Afib (on Dig), CAD, R tinnitus, DM2, nephrolithiasis who presents after being seen by Dr. Rey and told to come in for his jaundice. s/p thoracentesis 10/18 with subsequent pneumothorax, now s/p chest tube placement draining serious fluid. s/p urgent ERCP attempted 10/18, failed to pass scope beyond duodenum. s/p percutaneous removal of obstructed CBD stent , drainage of CBD, with indwelling drain, draining dark green bilious fluid. s/ p repeat thoracentesis 10/24 Plan: Hyperbilirubinemia 2/2 obstructed CBD stent with possible cholangitis - s/p percutaneous removal of obstructed CBD stent, drainage of CBD, with indwelling drain, draining dark green bilious fluid. - T bili elevated, now trending down; continue to monitor. - Jaundice improving - Continue IV Abx as below Pleural effusion and cough - CH chest yesterday showed - s/p thoracentesis 10/18; cytology negative for malignant cells; protein and LDH indicate transudative effusion; gram stain and culture negative - Patient reaccumulated bilateral pleural effusions, noted on CT yesterday, and went for repeat R thoracentesis yesterday - Fluid again sent for cell count, smear and culture, pH, glucose, LDH, protein , and cytology - Continue guifenasin and tessalon perles PRN for cough - Ordered rapid flu - Patient also has history of CHF with LVEF 25%, also hypoalbuminemic - Start Lasix 40mg IV BID for bilateral pleural effusion and anasarca - Requested pulm consult; appreciate recs Leukocytosis likely reactive 2/2 chemo vs cholangitis vs pneumonia - Pt remains afebrile; no abdominal pain - Leukocytosis remains markedly elevated; continues to trend down - Procal markedly elevated; >23 - Initial blood cultures and pleural fluid cultures negative - Repeat BCx collected peripherally and through port; no growth after 48 hours - Repeat Chest CT finding as above; CT abdomen and pelvis remarkable for pelvic ascites, and bilateral large renal stones - Continue merrem and vancomycin, per ID; renally dosed - Vanc trough high; instructed nurse to hold vancomycin if trough remains elevated - Patient also has diarrhea; stool for C diff collected, pending - ID consult requested, appreciate recs MAGALY - Cr elevated today, trended up x3 days - Likely 2/2 poor perfusion 2/2 CHF vs dehydration 2/2 diarrhea - Ordered IV lasix to treat CHF/congestion/anasarca - FEUrea 27%, likely prerenal etiology - Renally dose all medications - Requested nephro consult; appreciate recs Hx Afib; hx of SVC thrombus - Cont Digoxin - Continue eliquis 5mg PO BID, per discussion with hem/onc Hx GERD and gastric obstruction w/ gastric erosions and prior GI bleed s/p emergent gastrojejunostomy and enteroenterostomy in 03/2016 - PTX for GI ppx - H&H stable Hx Pancreatic cancer - Dr. Rey consulted - Monitor for any changes - No significant abdominal distention at this time Hx CAD s/p stent - ASA 81mg daily BPH - Flomax home dose GI Ppx: Protonix DVT Ppx: Eliquis Patient was seen, examined and discussed with attending, Dr. Loving <Bryan Loving - Last Filed: 10/25/17 14:39> Objective - Vital Signs/Intake and Output Vital Signs (last 24 hours): Temp Pulse Resp BP Pulse Ox 97.3 F L 92 H 20 121/68 100 10/25/17 10:12 10/25/17 10:12 10/25/17 10:12 10/25/17 10:12 10/25/17 10:12 Intake and Output: 10/25/17 10/25/17 06:59 18:59 Intake Total 3300 1320 Output Total 550 500 Balance 2750 820 - Medications Medications: Current Medications Acetaminophen (Tylenol 325mg Tab) 650 mg PO Q4 PRN PRN Reason: Pain, Mild (1-3) Apixaban (Eliquis) 5 mg PO BID [facility]RISTOPHER PRN Reason: Protocol Last Admin: 10/25/17 09:22 Dose: 5 mg Aspirin (Ecotrin) 81 mg PO DAILY [facility] Last Admin: 10/25/17 09:22 Dose: 81 mg Benzonatate (Tessalon Perles) 100 mg PO TID PRN PRN Reason: Cough Last Admin: 10/24/17 21:45 Dose: 100 mg Digoxin (Lanoxin) 0.25 mg PO 1400 [facility] Last Admin: 10/25/17 13:38 Dose: 0.25 mg Furosemide (Lasix) 20 mg IVP Q12 [facility] Last Admin: 10/25/17 12:02 Dose: Not Given Guaifenesin (Robitussin) 100 mg PO Q4H PRN PRN Reason: Cough Last Admin: 10/23/17 05:23 Dose: 100 mg Meropenem (Merrem Iv 1 Gm Premix) 50 mls @ 100 mls/hr IVPB Q12 [facility]STOP[facility] PRN Reason: Protocol Ondansetron HCl (Zofran Inj) 4 mg IVP Q4H PRN PRN Reason: Nausea/Vomiting Pantoprazole Sodium (Protonix Ec Tab) 40 mg PO 0600 [facility] Last Admin: 10/25/17 05:15 Dose: 40 mg Tamsulosin HCl (Flomax) 0.4 mg PO DAILY [facility] Last Admin: 10/25/17 09:22 Dose: 0.4 mg - Labs Labs: 10/25/17 05:30 10/25/17 05:30 PT 26.4 SECONDS (9.4-12.5) H 10/25/17 09:45 INR 2.26 (0.93-1.08) H 10/25/17 09:45 APTT 50.2 Seconds (25.1-36.5) H 10/25/17 09:45 Attending/Attestation - Attestation I have personally seen and examined this patient.: Yes I have fully participated in the care of the patient.: Yes I have reviewed all pertinent clinical information, including history, physical exam and plan: Yes Notes (Text): 10/25/17 14:35 Patient was seen and examined with medical practice assistant. 66 year old male with PMH of pancreatic cancer, afib, CAD, and diabetes was admitted with obstructive Jaundic, with possible obstructed CBD stent, possible cholangitis and also had pleural effusion,he had failed ERCP attempt, underwent percutaneous drainage on Sunday10/22/17 LFT are coming down.Patient is on IV Meropenem as per ID,Vancomycin is on hold. Repeat CT chest yesterday showed bilateral Pleural effusion and residual right sided Pneumothorax.Patient underwent thoracentesis by IR , fluid studies are pending at this time.Surgery evaluation was noted, no need for chest tube as per surgery at this time Acute renal failure, Creatinine is increasing, etiology of worsening renal failure is multifactorial,patient has CMP ef 25%, will start on IV lasix.We will get Nephrology consult. Prognosis is guarded.
--- NOTE | 2017-10-25 11:14 | CON ---
DATE: 10/25/2017 PULMONARY CONSULTATION REASON FOR CONSULTATION: Rule out pneumonia. REFERRING PHYSICIAN: Bryan Loving MD. HISTORY OF PRESENT ILLNESS: The patient is a chronically ill 66-year-old male, with past medical history significant for advanced pancreatic cancer, liver metastasis, status post multiple abdominal surgeries, atrial fibrillation, coronary artery disease, diabetes mellitus, chronic bronchitis, chronic pleural effusions, who presented to [facility] ([facility]] - originally on 10/17/2017 - with increasing jaundice and weakness. Apparently, the patient was seen by Dr. Rey (oncology), who sent the patient to the emergency room for additional evaluation. There is no history of shortness of breath at rest. The patient does state to some mild occasional dyspnea on exertion. The patient also states to a chronic cough with no significant sputum production. There is no history of chest pain, coughing up of blood or chest pain - made worse with deep respirations. There is no history of temperatures, chills or infectious exposure. There is no history of night sweats. There is a history of weight loss with decreased appetite over the past year. No history of calf pains. No history of syncope or diaphoresis. No history of recent travel or trauma. REVIEW OF SYSTEMS: No acute urinary symptoms. No new neurologic or musculoskeletal complaints. Rest of review of systems is negative. ALLERGIES: TO INTRAVENOUS TAPE. SOCIAL HISTORY: Positive for former tobacco usage. No alcohol. FAMILY HISTORY: No inheritable diseases. HOME MEDICATIONS: Include Protonix, Ensure, Flomax, Lasix, digoxin. PHYSICAL EXAMINATION: GENERAL: The patient appears comfortable this morning. He is not short of breath at rest. VITAL SIGNS: (Last noted in the computer): Temperature is 98.6, pulse 91, respirations 18/20, blood pressure 122/75. Oxygen saturation on nasal cannula is 99%. HEENT: Normocephalic, atraumatic. No JVD. CARDIOVASCULAR: Positive S1, S2. No S3 gallop. LUNGS: Decreased breath sounds at the bases. Mild rhonchi bilaterally. No wheezing. EXTREMITIES: Positive for mild edema. No cyanosis or clubbing. Calves are nontender to palpation. GI: The abdomen is soft and mildly distended. It is nontender to palpation. There is an intra-abdominal drain in place. SKIN: Positive for significant jaundice. No rashes. NEUROLOGIC: Limited at the present time. PERTINENT LABORATORY DATA: CAT scan of the chest, abdomen and pelvis was done on 10/24/2017 and reviewed. There remains large bilateral pleural effusions. Adjacent to the pleural effusions are minimal basilar infiltrates - most consistent with atelectasis (and not true pneumonia). There is a minimal residual pneumothorax in the right lung. There is no lymphadenopathy. CBC: White count 30.2, hemoglobin 8.9, hematocrit 25.2, platelets of 308,000. Complete metabolic profile: Carbon dioxide 20, BUN 37, creatinine 2.3, calcium 7.8, direct bilirubin 12.9, alkaline phosphatase 289, total protein 5.0, albumin 2.0. Rest of the metabolic profile is within normal limits. IMPRESSION: 1. Chronic pleural effusions. 2. Chronic mild atelectasis at the bases. 3. Status post multiple thoracenteses. 4. Very small right pneumothorax. 5. Chronic bronchitis. 6. Advanced pancreatic cancer. 7. Increasing jaundice, obstructed common bile duct stent. 8. Anemia. 9. Renal insufficiency. 10. Chronic cardiac arrhythmias. PLAN: The patient presented to [facility] ([facility]3] - originally on 10/17/2017 - with increasing jaundice and weakness. Subsequent evaluation revealed a blocked common bile duct stent. The patient was thus admitted for additional evaluation. I did review the CT scan of the chest, abdomen and pelvis. There are large bilateral pleural effusions seen. The patient does have a history of chronic pleural effusions dating back multiple years. He is status post multiple thoracenteses. On the CAT scan, there are minimal infiltrates adjacent to the pleural effusions - consistent with atelectasis (and not true pneumonia). The patient is currently on oral Lasix. I would continue to drain the pleural effusions (as per Interventional Radiology) based on symptoms. Again, I do not think that this patient has an acute pneumonia. The patient remains on antibiotic therapy - as per Infectious Disease. Input by Dr. Johnson is noted. There are no recent temperatures. On physical exam, the patient does exhibit mild bronchospasm. I did discuss starting him on nebulizer treatments to help with his bronchospasm. The nebulizer treatments have helped him in the past. For some reason, the patient is absolutely refusing any nebulizer treatments. I did inform him that the nebulizer treatments have helped him in the past. He continues to refuse. There is no significant alveolar-arterial gradient. Oxygen saturation on nasal cannula is 99%. Unfortunately, the overall status/prognosis for this patient is very poor. Consultation with Juli Bishop (Palliative Care) is ordered. At this point in time, I do not have a significant amount to add to his current management/treatment. I will discuss the above with the Medical team this morning. Please call me for any additional pulmonary questions or problems with this patient. I will happily follow up on this patient again as requested. Thank you very much for this pulmonary consultation. Pablo Shipman MD MTDAnderson
--- NOTE | 2017-10-25 12:10 | CP.PCM.PN ---
Subjective - Date & Time of Evaluation Date of Evaluation: 10/25/17 Time of Evaluation: 11:15 - Subjective Subjective: Comfortable on a chair, noted patient to have developed worsening renal failure and Vanco trough noted to be elevated, but slowly trending downwards. Vancomycin stopped yesterday. Objective - Vital Signs/Intake and Output Vital Signs (last 24 hours): Temp Pulse Resp BP Pulse Ox 98.6 F 91 H 20 122/75 99 10/24/17 16:00 10/24/17 16:00 10/24/17 16:00 10/24/17 16:00 10/24/17 16:00 Intake and Output: 10/25/17 10/25/17 06:59 18:59 Intake Total 3300 600 Output Total 550 200 Balance 2750 400 - Medications Medications: Current Medications Acetaminophen (Tylenol 325mg Tab) 650 mg PO Q4 PRN PRN Reason: Pain, Mild (1-3) Apixaban (Eliquis) 5 mg PO BID [facility]STOPHER PRN Reason: Protocol Last Admin: 10/25/17 09:22 Dose: 5 mg Aspirin (Ecotrin) 81 mg PO DAILY [facility] Last Admin: 10/25/17 09:22 Dose: 81 mg Benzonatate (Tessalon Perles) 100 mg PO TID PRN PRN Reason: Cough Last Admin: 10/24/17 21:45 Dose: 100 mg Digoxin (Lanoxin) 0.25 mg PO 1400 [facility] Last Admin: 10/24/17 13:51 Dose: 0.25 mg Furosemide (Lasix) 60 mg PO DAILY [facility] Last Admin: 10/24/17 09:25 Dose: 60 mg Guaifenesin (Robitussin) 100 mg PO Q4H PRN PRN Reason: Cough Last Admin: 10/23/17 05:23 Dose: 100 mg Meropenem (Merrem Iv 1 Gm Premix) 50 mls @ 100 mls/hr IVPB Q8 [facility]STOPHER PRN Reason: Protocol Last Admin: 10/25/17 05:14 Dose: 100 mls/hr Vancomycin HCl (Vancomycin 1gm) 1 gm in 250 mls @ 167 mls/hr IVPB 0600,1800 [facility] PRN Reason: Protocol Last Admin: 10/24/17 18:10 Dose: Not Given Sodium Chloride (Sodium Chloride 0.9%) 1,000 mls @ 100 mls/hr IV .Q10H [facility] Last Admin: 10/24/17 17:23 Dose: 100 mls/hr Ondansetron HCl (Zofran Inj) 4 mg IVP Q4H PRN PRN Reason: Nausea/Vomiting Oxycodone/Acetaminophen (Percocet 5/325 Mg Tab) 1 tab PO Q4H PRN PRN Reason: Pain, moderate (4-7) Stop: 10/25/17 12:17 Last Admin: 10/22/17 13:25 Dose: 1 tab Pantoprazole Sodium (Protonix Ec Tab) 40 mg PO 0600 [facility] Last Admin: 10/25/17 05:15 Dose: 40 mg Tamsulosin HCl (Flomax) 0.4 mg PO DAILY [facility] Last Admin: 10/25/17 09:22 Dose: 0.4 mg - Labs Labs: 10/25/17 05:30 10/25/17 05:30 PT 17.7 SECONDS (9.4-12.5) H 10/21/17 12:00 INR 1.53 (0.93-1.08) H 10/21/17 12:00 APTT 41.8 Seconds (25.1-36.5) H 10/21/17 12:00 - Constitutional Appears: Cachectic, Chronically Ill - Head Exam Head Exam: NORMAL INSPECTION - ENT Exam ENT Exam: Mucous Membranes Moist - Neck Exam Neck Exam: absent: Meningismus - Respiratory Exam Respiratory Exam: Decreased Breath Sounds - Cardiovascular Exam Cardiovascular Exam: +S1, +S2 - GI/Abdominal Exam GI & Abdominal Exam: Soft. absent: Tenderness Assessment and Plan - Assessment and Plan (Free Text) Plan: Assessment Systemic inflammatory response syndrome, R/O severe sepsis due to acute cholangitis in this patient with pancreatic cancer with gastric outlet obstruction S/P gastrojejunostomy, on chemotherapy, S/P pancreatic stent placement acute on chronic renal failure from Vancomycin toxicity atrial fibrillation CAD S/P PCI DM history of nephrolithiasis Plan continue Merrem day 7; follow up repeat septic work up - if patient develops watery diarrhea will start PO Vanco and check stool for C. diff. Vanco is held because of high Vanco trough and renal failure - check Vanco level tomorrow - discussed with Dr. Clark - will monitor kidney function will continue to monitor clinically overall prognosis is poor
--- NOTE | 2017-10-25 12:33 | CP.PCM.CON ---
History of Present Illness - History of Present Illness History of Present Illness: Palliative consult requested by Dr Rommel Loving Reason:Goals of care/advance care planning 66 year old male with history of pancreatic cancer, s/p gastrojejunostomy s/p stent who was sent form Dr Rey's office with increased jaundice. Patient last received chemotherapy a week prior to this admission. He also complained of abdominal pain, swelling of hands and feet and dyspnea on exertion. He denied chills,fever,chest pain, nausea, vomiting,diarrhea on constipation.Labs; leukocytosis,anemia, thrombocytosis, elevated LFT's, hypoalbunemia. CT of abdomen showed large bilaterla pleural effusions, large bilateral renal stones and percutaneous drainage catheter in liver with improvement in ductal dilatation,ascites,anasarca. PMHx:pancreatic cancer s/p gastrojejunostomy, s/p stent, ongoing chemotherapy, CAD s/p cardiac stent, atrial fibrillation, jaundice, plueral effusions, nephrolithiaisis, DM,GI bleed. Social History: Former smoker,ETOH and marijuana use in the past. Single,lives independently. Family History: Non contributory. Advance Care Planning: The patient has an Advanced Directive, a copy is in the chart. His siter, Madalyn Campuzano is his health care surrogate. Review of Systems: As per HPI, review otherwise negative Past Patient History - Infectious Disease Hx of Infectious Diseases: None - Tetanus Immunizations Tetanus Immunization: Unknown - Past Medical History & Family History Past Medical History?: Yes - Past Social History Smoking Status: Former Smoker Alcohol: None Drugs: Denies - CARDIAC Hx Pacemaker: No - PULMONARY Hx Respiratory Disorders: Yes (LUNG NODULE.SMOKED CIGARETTES-QUIT 1973. <PK. SMOKED MARIJUANA.LAST 2014) Hx Pneumonia: Yes - NEUROLOGICAL Hx Paralysis: No - HEENT Hx HEENT Problems: No - RENAL Hx Chronic Kidney Disease: Yes Hx Kidney Stones: Yes - ENDOCRINE/METABOLIC Hx Diabetes Mellitus Type 2: Yes - HEMATOLOGICAL/ONCOLOGICAL Hx Blood Transfusions: No Hx Blood Transfusion Reaction: No - INTEGUMENTARY Hx Dermatological Problems: Yes - MUSCULOSKELETAL/RHEUMATOLOGICAL Hx Musculoskeletal Disorders: No - GASTROINTESTINAL Hx Gastrointestinal Disorders: Yes Hx Gastroesophageal Reflux: Yes Hx Ulcer: Yes Other/Comment: esophageal ulcers, esophageal polyp. food bezoar, duodenal gstric outlet obstruction, barretts esophagus, gi bleed, constipation, nausea - GENITOURINARY/GYNECOLOGICAL Hx Genitourinary Disorders: No Hx Prostate Problems: Yes - PSYCHIATRIC Hx Emotional Abuse: No Hx Physical Abuse: No Hx Substance Use: Yes (MARIJUANA. LAST SMOKED LAST 2014) - SURGICAL HISTORY Hx Surgeries: Yes - ANESTHESIA Hx Anesthesia Reactions: No Hx Malignant Hyperthermia: No Meds Allergies/Adverse Reactions: Allergies Allergy/AdvReac Type Severity Reaction Status Date / Time iv tape Allergy Mild RASH Uncoded 04/12/17 16:29 - Medications Medications: Current Medications Acetaminophen (Tylenol 325mg Tab) 650 mg PO Q4 PRN PRN Reason: Pain, Mild (1-3) Apixaban (Eliquis) 5 mg PO BID [facility] PRN Reason: Protocol Last Admin: 10/25/17 09:22 Dose: 5 mg Aspirin (Ecotrin) 81 mg PO DAILY [facility] Last Admin: 10/25/17 09:22 Dose: 81 mg Benzonatate (Tessalon Perles) 100 mg PO TID PRN PRN Reason: Cough Last Admin: 10/24/17 21:45 Dose: 100 mg Digoxin (Lanoxin) 0.25 mg PO 1400 [facility] Last Admin: 10/24/17 13:51 Dose: 0.25 mg Furosemide (Lasix) 20 mg IVP Q12 [facility] Last Admin: 10/25/17 12:02 Dose: Not Given Guaifenesin (Robitussin) 100 mg PO Q4H PRN PRN Reason: Cough Last Admin: 10/23/17 05:23 Dose: 100 mg Meropenem (Merrem Iv 1 Gm Premix) 50 mls @ 100 mls/hr IVPB Q12 [facility] PRN Reason: Protocol Ondansetron HCl (Zofran Inj) 4 mg IVP Q4H PRN PRN Reason: Nausea/Vomiting Pantoprazole Sodium (Protonix Ec Tab) 40 mg PO 0600 [facility] Last Admin: 10/25/17 05:15 Dose: 40 mg Tamsulosin HCl (Flomax) 0.4 mg PO DAILY [facility] Last Admin: 10/25/17 09:22 Dose: 0.4 mg Physical Exam - Constitutional Appears: Cachectic, Chronically Ill - Head Exam Additional comments: temporal wasting - Eye Exam Eye Exam: PERRL, Scleral icterus - ENT Exam ENT Exam: Mucous Membranes Moist, Normal Oropharynx - Neck Exam Neck exam: Positive for: Normal Inspection - Respiratory Exam Respiratory Exam: Decreased Breath Sounds, Rhonchi Additional comments: dyspnea on exertion - Cardiovascular Exam Cardiovascular Exam: Irregular Rhythm, +S1, +S2 - GI/Abdominal Exam GI & Abdominal Exam: Distended, Soft - Extremities Exam Additional comments: edema of both upper and lower extremities, mottled appearance to both hands, left index finger cyanotic - Back Exam Back exam: NORMAL INSPECTION - Neurological Exam Neurological exam: Alert, Oriented x3 - Skin Skin Exam: Dry, Pallor Additional comments: jaundice - Additional Findings Additional findings: pallaitve performance scale rating 40% Results - Vital Signs Recent Vital Signs: Last Vital Signs Temp 97.3 F L 10/25/17 10:12 Pulse 92 H 10/25/17 10:12 Resp 20 10/25/17 10:12 BP 121/68 10/25/17 10:12 Pulse Ox 100 10/25/17 10:12 - Labs Result Diagrams: 10/25/17 05:30 10/25/17 05:30 Labs: Laboratory Results - last 24 hr 10/24/17 10/24/17 10/24/17 12:05 16:11 16:11 WBC RBC Hgb Hct MCV MCH MCHC RDW Plt Count MPV Gran % Lymph % (Auto) [place] % (Auto) Eos % (Auto) Baso % (Auto) Gran # Lymph # (Auto) [place] # (Auto) Eos # (Auto) Baso # (Auto) Retic Count PT INR APTT Sodium Potassium Chloride Carbon Dioxide Anion Gap BUN Creatinine Est GFR ( Amer) Est GFR (Non-Af Amer) Random Glucose Calcium Total Bilirubin AST ALT Alkaline Phosphatase Total Protein Albumin Globulin Albumin/Globulin Ratio Urine Color Yellow Urine Appearance Cloudy Urine pH 6.0 Ur Specific [place] 1.020 Urine Protein 100 H Urine Glucose (UA) Negative Urine Ketones Trace H Urine Blood Large H Urine Nitrate Negative Urine Bilirubin Large H Urine Urobilinogen 0.2 Ur Leukocyte Esterase Trace H Urine RBC 25 - 30 Urine WBC 15 - 20 Ur Epithelial Cells 1 - 3 Urine Bacteria Mod Coarse Granular Casts Trace H Ur Random Creatinine 47 Ur Random Urea Nitrogn 199 Fluid Source Fluid Appearance Fluid WBC Fluid RBC Fluid Tot Cell Count Fluid Neutrophils Fluid Lymphocytes Fld Monocyte/Macrophag Fluid Comment Pleural pH Vancomycin Trough Random Vancomycin 47.2 H* Blood Type Antibody Screen BBK History Checked 03/21/18 03/21/18 03/21/18 16:50 16:50 17:30 WBC RBC Hgb Hct MCV MCH MCHC RDW Plt Count MPV Gran % Lymph % (Auto) [place] % (Auto) Eos % (Auto) Baso % (Auto) Gran # Lymph # (Auto) [place] # (Auto) Eos # (Auto) Baso # (Auto) Retic Count PT INR APTT Sodium Potassium Chloride Carbon Dioxide Anion Gap BUN Creatinine Est GFR ( Amer) Est GFR (Non-Af Amer) Random Glucose Calcium Total Bilirubin AST ALT Alkaline Phosphatase Total Protein Albumin Globulin Albumin/Globulin Ratio Urine Color Urine Appearance Urine pH Ur Specific [place] Urine Protein Urine Glucose (UA) Urine Ketones Urine Blood Urine Nitrate Urine Bilirubin Urine Urobilinogen Ur Leukocyte Esterase Urine RBC Urine WBC Ur Epithelial Cells Urine Bacteria Coarse Granular Casts Ur Random Creatinine Ur Random Urea Nitrogn Fluid Source Pleural Fluid Appearance Sl cloudy Fluid WBC 138.0 Fluid RBC 8236.0 H Fluid Tot Cell Count 100 H Fluid Neutrophils 57.0 H Fluid Lymphocytes 5.0 H Fld Monocyte/Macrophag 38 H Fluid Comment TEST NOT PERFORMED Pleural pH 7.0 Vancomycin Trough 44.6 H* Random Vancomycin Blood Type Antibody Screen BBK History Checked 10/25/17 10/25/17 10/25/17 05:30 05:30 05:30 WBC 30.2 H* RBC 2.58 L Hgb 8.9 L Hct 25.2 L MCV 97.7 MCH 34.5 MCHC 35.3 RDW 23.2 H Plt Count 308 MPV 10.3 Gran % 83.3 H Lymph % (Auto) 2.8 L [place] % (Auto) 10.4 H Eos % (Auto) 3.4 Baso % (Auto) 0.1 Gran # 25.10 H Lymph # (Auto) 0.8 L [place] # (Auto) 3.2 H Eos # (Auto) 1.0 H Baso # (Auto) 0.04 Retic Count PT INR APTT Sodium 135 Potassium 4.3 Chloride 105 Carbon Dioxide 20 L Anion Gap 13 BUN 37 H Creatinine 2.3 H Est GFR ( Amer) 34 Est GFR (Non-Af Amer) 29 Random Glucose 81 Calcium 7.8 L Total Bilirubin 12.9 H AST 38 ALT 38 Alkaline Phosphatase 289 H D Total Protein 5.0 L Albumin 2.0 L Globulin 3.0 Albumin/Globulin Ratio 0.7 L Urine Color Urine Appearance Urine pH Ur Specific [place] Urine Protein Urine Glucose (UA) Urine Ketones Urine Blood Urine Nitrate Urine Bilirubin Urine Urobilinogen Ur Leukocyte Esterase Urine RBC Urine WBC Ur Epithelial Cells Urine Bacteria Coarse Granular Casts Ur Random Creatinine Ur Random Urea Nitrogn Fluid Source Fluid Appearance Fluid WBC Fluid RBC Fluid Tot Cell Count Fluid Neutrophils Fluid Lymphocytes Fld Monocyte/Macrophag Fluid Comment Pleural pH Vancomycin Trough 43.8 H* Random Vancomycin Blood Type Antibody Screen BBK History Checked 10/25/17 10/25/17 10/25/17 05:30 09:45 09:45 WBC RBC Hgb Hct MCV MCH MCHC RDW Plt Count MPV Gran % Lymph % (Auto) [place] % (Auto) Eos % (Auto) Baso % (Auto) Gran # Lymph # (Auto) [place] # (Auto) Eos # (Auto) Baso # (Auto) Retic Count 1.78 H PT 26.4 H INR 2.26 H APTT 50.2 H Sodium Potassium Chloride Carbon Dioxide Anion Gap BUN Creatinine Est GFR ( Amer) Est GFR (Non-Af Amer) Random Glucose Calcium Total Bilirubin AST ALT Alkaline Phosphatase Total Protein Albumin Globulin Albumin/Globulin Ratio Urine Color Urine Appearance Urine pH Ur Specific [place] Urine Protein Urine Glucose (UA) Urine Ketones Urine Blood Urine Nitrate Urine Bilirubin Urine Urobilinogen Ur Leukocyte Esterase Urine RBC Urine WBC Ur Epithelial Cells Urine Bacteria Coarse Granular Casts Ur Random Creatinine Ur Random Urea Nitrogn Fluid Source Fluid Appearance Fluid WBC Fluid RBC Fluid Tot Cell Count Fluid Neutrophils Fluid Lymphocytes Fld Monocyte/Macrophag Fluid Comment Pleural pH Vancomycin Trough Random Vancomycin Blood Type A POSITIVE Antibody Screen Negative BBK History Checked Patient has bt Assessment & Plan - Assessment and Plan (Free Text) Assessment: 66 year old male with history advanced pancreatic cancer s/p jejunostomy,atrial fibrillation, CAD, DM who is admitted with sepsis,large bilateral pleural effusions > drained > subsequent pneumothorax. He is s/p chest tube. ERCP s/p removal of of obstructed CBD stent, nephrolithiasis, elevated LFT's, anemia, cachexia,anasarca and jaundice. The patient is alert and oriented. He is aware of diagnosis, also aware that his disease is incurable. Patient does not see himself as being "terminally ill ". States his condition is treatable. I explained that he at some point he may become to ill/debilitated to receive treatment. He understands that this is a possibility. He intends to go to Rehab and do what is necessary to survive. When asked about his quality of life, he states it is manageable. He does not express distress over his situation. Advance care planning discussion ensued. The patient has an advanced directive. The patient states he wants full/ aggressive resuscitation measures and would only consider being DNR/DNI when his condition is terminal. Time spent in [facility] and advanced care planning discussion with this patient, 30 minutes Plan: Hyper bilirubenemia:continue antibiotics, monitor LFT's, follow GI recommendations Pleural effusion: thoracentisis as needed, Lasix, follow pulmonary recommendations Leukocytosis:cultures negative, monitor for increasing elevation, follow ID recommendation A Fib: continue Eliquis and Digoxin. Vascular insufficiency in hands: monitor for increasing cyanosis, in of loss of pulse, vascular consult. Pancreatic cancer: follow up with Dr. Rey Palliative;support in establishing future goals of care/advance care planning
--- NOTE | 2017-10-25 13:16 | CP.PCM.PN ---
Subjective - Date & Time of Evaluation Date of Evaluation: 10/25/17 Time of Evaluation: 10:00 - Subjective Subjective: Patient seen and examined this morning. Reports breathing improved s/p thoracentesis of Right lung. 1800cc's of fluid drained. Objective - Vital Signs/Intake and Output Vital Signs (last 24 hours): Temp Pulse Resp BP Pulse Ox 97.3 F L 92 H 20 121/68 100 10/25/17 10:12 10/25/17 10:12 10/25/17 10:12 10/25/17 10:12 10/25/17 10:12 Intake and Output: 10/25/17 10/25/17 06:59 18:59 Intake Total 3300 600 Output Total 550 200 Balance 2750 400 - Medications Medications: Current Medications Acetaminophen (Tylenol 325mg Tab) 650 mg PO Q4 PRN PRN Reason: Pain, Mild (1-3) Apixaban (Eliquis) 5 mg PO BID [facility] PRN Reason: Protocol Last Admin: 10/25/17 09:22 Dose: 5 mg Aspirin (Ecotrin) 81 mg PO DAILY [facility] Last Admin: 10/25/17 09:22 Dose: 81 mg Benzonatate (Tessalon Perles) 100 mg PO TID PRN PRN Reason: Cough Last Admin: 10/24/17 21:45 Dose: 100 mg Digoxin (Lanoxin) 0.25 mg PO 1400 [facility] Last Admin: 10/24/17 13:51 Dose: 0.25 mg Furosemide (Lasix) 20 mg IVP Q12 [facility] Last Admin: 10/25/17 12:02 Dose: Not Given Guaifenesin (Robitussin) 100 mg PO Q4H PRN PRN Reason: Cough Last Admin: 10/23/17 05:23 Dose: 100 mg Meropenem (Merrem Iv 1 Gm Premix) 50 mls @ 100 mls/hr IVPB Q12 [facility] PRN Reason: Protocol Ondansetron HCl (Zofran Inj) 4 mg IVP Q4H PRN PRN Reason: Nausea/Vomiting Pantoprazole Sodium (Protonix Ec Tab) 40 mg PO 0600 [facility] Last Admin: 10/25/17 05:15 Dose: 40 mg Tamsulosin HCl (Flomax) 0.4 mg PO DAILY [facility] Last Admin: 10/25/17 09:22 Dose: 0.4 mg - Labs Labs: 10/25/17 05:30 10/25/17 05:30 PT 26.4 SECONDS (9.4-12.5) H 10/25/17 09:45 INR 2.26 (0.93-1.08) H 10/25/17 09:45 APTT 50.2 Seconds (25.1-36.5) H 10/25/17 09:45 - Constitutional Appears: Cachectic, Chronically Ill - Head Exam Head Exam: NORMOCEPHALIC - Eye Exam Eye Exam: Scleral icterus - Cardiovascular Exam Cardiovascular Exam: +S1, +S2 - GI/Abdominal Exam GI & Abdominal Exam: Soft - Neurological Exam Neurological Exam: Alert, Oriented x3 - Psychiatric Exam Psychiatric exam: Normal Mood - Skin Skin Exam: Dry, Intact, Warm Assessment and Plan - Assessment and Plan (Free Text) Assessment: 66M w. hx of stage IV pancreatic CA with b/l pleural effusions s/p thoracentesis of right lung Plan: -NO evidence of loculations on imaging -Bilateral pleural effusions -No need for insertion of large bore chest tube at this present time -Medical management per primary team -D/w Dr. Jorge Luis Mcnulty PGY2
[2017-10-25] MEDS: Digoxin 250 mcg (0.25 mg) Tab PO SCH (13:38)
[2017-10-25 18:49] LABS: CREATININE,RANDOM URINE 59 mg/dL; TOTAL PROTEIN,RANDOM URINE 75 mg/L
--- NOTE | 2017-10-25 20:45 | CP.PCM.CON ---
History of Present Illness - History of Present Illness History of Present Illness: 66 yo M w/ pmh of pancreastic Ca (on chemo, s/p gastrojejunostomy due to gastric outlet obstruction and pancreatic stent placement), CHF w/ severe systolic dysfunction and severe MR, Afib, CAD s/p stent, DM and nephrolithiasis , sent to ED by oncologist for worsening jaundice; nephrology being consulted for acute renal failure; Hospital course is signficant for being found to have occluded biliary stent, ERCP was attempted but patient found to have large duodenal bulb stenosis; subsequently, patient had IR remove stent and place internal/external biliary drain; patient also had large volume R thoracentesis done x 2; More recently, patient developed severe leukocytosis and was started on vancomycin as well as continued on meropenem; vanco trough subsequently found to be markedly elevated; Patient currently reports tolerating diet well without nausea/vomting, no diarrhea; not short of breath but not ambulating much either; leg swelling has increased lately; patient was on PO lasix 60 mg daily at home (which was continued here up until yesterday); reports decreased urination lately; Review of Systems - Constitutional Constitutional: absent: Anorexia - EENT Eyes: absent: Change in Vision Nose/Mouth/Throat: Nasal Discharge - Cardiovascular Cardiovascular: Chest Pain. absent: Palpitations - Respiratory Respiratory: absent: Cough - Gastrointestinal Gastrointestinal: As Per HPI. absent: Constipation - Genitourinary Genitourinary: As Per HPI - Integumentary Integumentary: Jaundice - Neurological Neurological: absent: Tremor - Psychiatric Psychiatric: absent: Anxiety, Depression Past Patient History - Infectious Disease Hx of Infectious Diseases: None - Tetanus Immunizations Tetanus Immunization: Unknown - Past Medical History & Family History Past Medical History?: Yes Pertinent Family History: Mother with ovarian Ca - Past Social History Smoking Status: Former Smoker Alcohol: None Drugs: Denies - CARDIAC Hx Pacemaker: No - PULMONARY Hx Respiratory Disorders: Yes (LUNG NODULE.SMOKED CIGARETTES-QUIT 1973. <PK. SMOKED MARIJUANA.LAST 2014) Hx Pneumonia: Yes - NEUROLOGICAL Hx Paralysis: No - HEENT Hx HEENT Problems: No - RENAL Hx Chronic Kidney Disease: Yes Hx Kidney Stones: Yes - ENDOCRINE/METABOLIC Hx Diabetes Mellitus Type 2: Yes - HEMATOLOGICAL/ONCOLOGICAL Hx Blood Transfusions: No Hx Blood Transfusion Reaction: No - INTEGUMENTARY Hx Dermatological Problems: Yes - MUSCULOSKELETAL/RHEUMATOLOGICAL Hx Musculoskeletal Disorders: No - GASTROINTESTINAL Hx Gastrointestinal Disorders: Yes Hx Gastroesophageal Reflux: Yes Hx Ulcer: Yes Other/Comment: esophageal ulcers, esophageal polyp. food bezoar, duodenal gstric outlet obstruction, barretts esophagus, gi bleed, constipation, nausea - GENITOURINARY/GYNECOLOGICAL Hx Genitourinary Disorders: No Hx Prostate Problems: Yes - PSYCHIATRIC Hx Emotional Abuse: No Hx Physical Abuse: No Hx Substance Use: Yes (MARIJUANA. LAST SMOKED LAST YR 2014) - SURGICAL HISTORY Hx Surgeries: Yes - ANESTHESIA Hx Anesthesia Reactions: No Hx Malignant Hyperthermia: No Meds Allergies/Adverse Reactions: Allergies Allergy/AdvReac Type Severity Reaction Status Date / Time iv tape Allergy Mild RASH Uncoded 04/12/17 16:29 - Medications Medications: Current Medications Acetaminophen (Tylenol 325mg Tab) 650 mg PO Q4 PRN PRN Reason: Pain, Mild (1-3) Apixaban (Eliquis) 5 mg PO BID [facility] PRN Reason: Protocol Last Admin: 10/25/17 17:26 Dose: 5 mg Aspirin (Ecotrin) 81 mg PO DAILY [facility] Last Admin: 10/25/17 09:22 Dose: 81 mg Benzonatate (Tessalon Perles) 100 mg PO TID PRN PRN Reason: Cough Last Admin: 10/24/17 21:45 Dose: 100 mg Digoxin (Lanoxin) 0.25 mg PO 1400 [facility] Last Admin: 10/25/17 13:38 Dose: 0.25 mg Furosemide (Lasix) 20 mg IVP Q12 [facility] Last Admin: 10/25/17 12:02 Dose: Not Given Guaifenesin (Robitussin) 100 mg PO Q4H PRN PRN Reason: Cough Last Admin: 10/23/17 05:23 Dose: 100 mg Meropenem (Merrem Iv 1 Gm Premix) 50 mls @ 100 mls/hr IVPB Q12 [facility] PRN Reason: Protocol Ondansetron HCl (Zofran Inj) 4 mg IVP Q4H PRN PRN Reason: Nausea/Vomiting Pantoprazole Sodium (Protonix Ec Tab) 40 mg PO 0600 [facility] Last Admin: 10/25/17 05:15 Dose: 40 mg Tamsulosin HCl (Flomax) 0.4 mg PO DAILY [facility] Last Admin: 10/25/17 09:22 Dose: 0.4 mg Physical Exam - Constitutional Appears: Non-toxic, No Acute Distress - Eye Exam Eye Exam: Scleral icterus - ENT Exam ENT Exam: Mucous Membranes Moist - Respiratory Exam Respiratory Exam: Clear to Auscultation Bilateral. absent: Respiratory Distress - Cardiovascular Exam Cardiovascular Exam: absent: Gallop, Rubs - GI/Abdominal Exam GI & Abdominal Exam: Soft. absent: Tenderness - Extremities Exam Additional comments: 2+ bilateral leg edema; - Neurological Exam Neurological exam: Alert, Oriented x3 Additional comments: no asterixis - Skin Additional comments: jaundiced Results - Vital Signs Recent Vital Signs: Last Vital Signs Temp 97.6 F 10/25/17 16:00 Pulse 83 10/25/17 16:00 Resp 20 10/25/17 16:00 BP 128/73 10/25/17 16:00 Pulse Ox 100 10/25/17 16:00 - Labs Result Diagrams: 10/25/17 05:30 10/25/17 05:30 Labs: Laboratory Results - last 24 hr 10/25/17 10/25/17 10/25/17 05:30 05:30 05:30 WBC 30.2 H* RBC 2.58 L Hgb 8.9 L Hct 25.2 L MCV 97.7 MCH 34.5 MCHC 35.3 RDW 23.2 H Plt Count 308 MPV 10.3 Gran % 83.3 H Lymph % (Auto) 2.8 L [place] % (Auto) 10.4 H Eos % (Auto) 3.4 Baso % (Auto) 0.1 Gran # 25.10 H Lymph # (Auto) 0.8 L [place] # (Auto) 3.2 H Eos # (Auto) 1.0 H Baso # (Auto) 0.04 Retic Count PT INR APTT Sodium 135 Potassium 4.3 Chloride 105 Carbon Dioxide 20 L Anion Gap 13 BUN 37 H Creatinine 2.3 H Est GFR ( Amer) 34 Est GFR (Non-Af Amer) 29 Random Glucose 81 Calcium 7.8 L Total Bilirubin 12.9 H AST 38 ALT 38 Alkaline Phosphatase 289 H D Total Protein 5.0 L Albumin 2.0 L Globulin 3.0 Albumin/Globulin Ratio 0.7 L Ur Random Creatinine U Random Total Protein Ur Random Sodium Ur Random Urea Nitrogn Vancomycin Trough 43.8 H* Influenza Typ A,B (EIA) Blood Type Antibody Screen BBK History Checked 0310/25/17 10/25/17 05:30 09:45 09:45 WBC RBC Hgb Hct MCV MCH MCHC RDW Plt Count MPV Gran % Lymph % (Auto) [place] % (Auto) Eos % (Auto) Baso % (Auto) Gran # Lymph # (Auto) [place] # (Auto) Eos # (Auto) Baso # (Auto) Retic Count 1.78 H PT 26.4 H INR 2.26 H APTT 50.2 H Sodium Potassium Chloride Carbon Dioxide Anion Gap BUN Creatinine Est GFR ( Amer) Est GFR (Non-Af Amer) Random Glucose Calcium Total Bilirubin AST ALT Alkaline Phosphatase Total Protein Albumin Globulin Albumin/Globulin Ratio Ur Random Creatinine U Random Total Protein Ur Random Sodium Ur Random Urea Nitrogn Vancomycin Trough Influenza Typ A,B (EIA) Blood Type A POSITIVE Antibody Screen Negative BBK History Checked Patient has bt 10/25/17 10/25/17 14:15 18:02 WBC RBC Hgb Hct MCV MCH MCHC RDW Plt Count MPV Gran % Lymph % (Auto) [place] % (Auto) Eos % (Auto) Baso % (Auto) Gran # Lymph # (Auto) [place] # (Auto) Eos # (Auto) Baso # (Auto) Retic Count PT INR APTT Sodium Potassium Chloride Carbon Dioxide Anion Gap BUN Creatinine Est GFR ( Amer) Est GFR (Non-Af Amer) Random Glucose Calcium Total Bilirubin AST ALT Alkaline Phosphatase Total Protein Albumin Globulin Albumin/Globulin Ratio Ur Random Creatinine 59 U Random Total Protein 75 Ur Random Sodium 35 Ur Random Urea Nitrogn 281 Vancomycin Trough Influenza Typ A,B (EIA) Negative for flu a/b Blood Type Antibody Screen BBK History Checked - Imaging and Cardiology Chest x-ray Status: Image reviewed by me (somewhat increased pulmonary vascular congestion) Assessment & Plan (1) Acute renal failure Assessment and Plan: Likely ATN in the setting of vancomycin toxicity with coarse granular casts mentioned on UA report; rate of rise of serum creatinine appears to be slowing which implies that renal recovery is close; urine lytes showing low FENA (1%; however, there are other causes of low FENA other than pre-renal state) which may be consistent with decreased renal perfusion in the setting of severe CHF, however, BP is stable with patient asymptomatic at rest; -can continue gentle diuresis with lasix 20 mg IV q12h, need to avoid hypotension; -avoid further nephrotoxic agents; -accurate I/O, daily weights; Status: Acute (2) Sepsis Assessment and Plan: On meropenem, dosed reduced to 1 mg q12h due to renal insufficiency; when renal function improves, should go back to increased dose; Status: Acute (3) CHF (congestive heart failure) Assessment and Plan: Severe systolic CHF w/ MR; compensated at rest; needs to be on at least twice daily loop diuretic regimen, aldactone will help as well; unclear why patient not on B-eriberto and CHELO inhibitor/ARB, should ascertain from PMD; Status: Acute (4) Metabolic acidosis Assessment and Plan: Relatively mild in the setting of renal insufficiency; will monitor for now, no need for bicarb replacement; Status: Acute (5) Nephrolithiasis Assessment and Plan: Large b/l kidney stones; doesn't appear to be interfering with renal function, no hydronephrosis; monitor for symptoms; Status: Chronic
[2017-10-26] MEDS: Pantoprazole 40 mg EC Tab PO SCH (05:38)
[2017-10-26 07:16] LABS: BASO # 0.04 K/mm3 (0.0-2.0); BASO % 0.2 % (0.0-3.0); EOS # 1.9 (0.0-0.7); EOS % 7.6 % (1.5-5.0); GRAN # 18.75 (1.4-6.5); GRAN % 77.1 % (50.0-68.0); HEMOGLOBIN 8.6 g/dL (14.0-18.0); LYMPH # 1.1 (1.2-3.4); LYMPH % 4.7 % (22.0-35.0); MEAN CORPUSCULAR HEMOGLOBIN 33.9 pg (25.0-35.0); MEAN CORPUSCULAR HGB CONC 34.5 g/dl (31.0-37.0); MEAN PLATELET VOLUME 10.4 fl (7.0-11.0); MONO # 2.5 (0.1-0.6); MONO % 10.4 % (1.0-6.0); PLATELET COUNT 296 10^3/uL (120.0-450.0); RBC 2.54 10^6/uL (3.5-6.1); RED CELL DISTRIBUTION WIDTH 22.3 % (11.5-14.5); WHITE BLOOD COUNT 24.3 10^3/ul (4.5-11.0)
[2017-10-26 07:51] LABS: ALB/GLOB RATIO 0.6 (1.1-1.8); CALCIUM 7.8 mg/dL (8.4-10.5)
[2017-10-26 08:12] LABS: EOSINOPHIL 2 % (0.0-3.0); LYMPHOCYTE 3 % (22.0-35.0); MONOCYTE 8 % (1.0-6.0); NEUTROPHIL 87 % (50.0-70.0)
[2017-10-26 08:13] LABS: LARGE PLATELETS PRESENT; PLATELET ESTIMATE NORMAL (NORMAL)
--- NOTE | 2017-10-26 08:42 | CP.PCM.PN ---
<Lavonne Herbert - Last Filed: 10/26/17 15:08> Subjective - Date & Time of Evaluation Date of Evaluation: 10/26/17 Time of Evaluation: 07:30 - Subjective Subjective: Lavonne Herbert DO PGY1 - IM Progress Note Patient seen and examined at bedside. Per nursing staff, no acute events events overnight. Patient denies any new complaints, breathing easy, speaking in complete sentences. Patient continues to have clear rhinorrhea and cough, productive of yellowish sputum. He denies fever, chest pain, abdominal pain, nausea, vomiting. Diarrhea has slightly improved. Objective - Vital Signs/Intake and Output Vital Signs (last 24 hours): Temp Pulse Resp BP Pulse Ox 97.5 F L 75 20 159/83 H 97 10/26/17 06:00 10/26/17 06:00 10/26/17 06:00 10/26/17 06:00 10/26/17 06:00 Intake and Output: 10/26/17 10/26/17 06:59 18:59 Intake Total 360 Output Total 490 Balance -130 - Medications Medications: Current Medications Acetaminophen (Tylenol 325mg Tab) 650 mg PO Q4 PRN PRN Reason: Pain, Mild (1-3) Apixaban (Eliquis) 5 mg PO BID [facility] PRN Reason: Protocol Last Admin: 10/25/17 17:26 Dose: 5 mg Aspirin (Ecotrin) 81 mg PO DAILY [facility] Last Admin: 10/25/17 09:22 Dose: 81 mg Benzonatate (Tessalon Perles) 100 mg PO TID PRN PRN Reason: Cough Last Admin: 10/24/17 21:45 Dose: 100 mg Digoxin (Lanoxin) 0.25 mg PO 1400 [facility] Last Admin: 10/25/17 13:38 Dose: 0.25 mg Furosemide (Lasix) 20 mg IVP Q12 [facility] Last Admin: 10/25/17 21:09 Dose: 20 mg Guaifenesin (Robitussin) 100 mg PO Q4H PRN PRN Reason: Cough Last Admin: 10/23/17 05:23 Dose: 100 mg Meropenem (Merrem Iv 1 Gm Premix) 50 mls @ 100 mls/hr IVPB Q12 [facility] PRN Reason: Protocol Last Admin: 10/25/17 21:10 Dose: 100 mls/hr Ondansetron HCl (Zofran Inj) 4 mg IVP Q4H PRN PRN Reason: Nausea/Vomiting Pantoprazole Sodium (Protonix Ec Tab) 40 mg PO 0600 [facility] Last Admin: 10/26/17 05:38 Dose: 40 mg Tamsulosin HCl (Flomax) 0.4 mg PO DAILY [facility] Last Admin: 10/25/17 09:22 Dose: 0.4 mg - Labs Labs: 10/26/17 06:30 10/26/17 06:30 PT 26.4 SECONDS (9.4-12.5) H 10/25/17 09:45 INR 2.26 (0.93-1.08) H 10/25/17 09:45 APTT 50.2 Seconds (25.1-36.5) H 10/25/17 09:45 - Additional Findings Additional findings: - Constitutional Appears: Non-toxic, No Acute Distress, Older Than Stated Age, Chronically Ill - Head Exam Head Exam: ATRAUMATIC, NORMOCEPHALIC - Eye Exam Eye Exam: EOMI, PERRL, Scleral icterus - ENT Exam ENT Exam: Mucous Membranes Moist - Neck Exam Neck Exam: Normal Inspection - Respiratory Exam Respiratory Exam: Decreased Breath Sounds, Rhonchi (b/l UL) - Cardiovascular Exam Cardiovascular Exam: RRR, +S1, +S2 - GI/Abdominal Exam GI & Abdominal Exam: Soft, Normal Bowel Sounds. absent: Tenderness Additional comments: Drain in place, with dark green fluid in bag - Extremities Exam Extremities Exam: absent: Calf Tenderness Additional comments: 1-2+ pitting edema in all four extremities - Neurological Exam Neurological Exam: Alert, Awake, Oriented x3 - Psychiatric Exam Psychiatric exam: Normal Affect, Normal Mood - Skin Skin Exam: Dry, Intact Additional comments: Jaundice, improving Assessment and Plan - Assessment and Plan (Free Text) Assessment: 66yo M PMH pancreatic CA, Afib (on Dig), CAD, R tinnitus, DM2, nephrolithiasis who presents after being seen by Dr. Rey and told to come in for his jaundice. s/p thoracentesis 10/18 with subsequent pneumothorax, now s/p chest tube placement draining serious fluid. s/p urgent ERCP attempted 10/18, failed to pass scope beyond duodenum. s/p percutaneous removal of obstructed CBD stent , drainage of CBD, with indwelling drain, draining dark green bilious fluid. s/ p repeat thoracentesis 10/24 Plan: Hyperbilirubinemia 2/2 obstructed CBD stent with possible cholangitis - s/p percutaneous removal of obstructed CBD stent, drainage of CBD, with indwelling internal/external drain, draining dark green bilious fluid. - T bili elevated, continues to trend down; continue to monitor. - Jaundice improving - Continue IV Abx as below Pleural effusion and cough - Patient symptomatically improved somewhat. - s/p thoracentesis 10/18; cytology negative for malignant cells; protein and LDH indicate transudative effusion; gram stain and culture negative - Reaccumulation of bilateral pleural effusions noted on repeat CT scan; s/p repeat R thoracentesis on 10/24 - Pleural fluid pH low (7.0), concerning for infectious or malignant etiology; though normal WBC with predominant monocytes, more likely benign 2/2 CHF and hypoalbuminemia; LDH, protein, glucose, gram stain and culture pending - Continue guifenasin and tessalon perles PRN for cough - Rapid flu negative - Continue Lasix 20mg IV BID for CHF, bilateral pleural effusion and anasarca; per nephro - Patient may benefit from pleurex catheter placement for chronic recurrent effusions - Requested pulm consult; appreciate recs Leukocytosis likely reactive 2/2 chemo vs cholangitis vs pneumonia - Pt remains afebrile; no abdominal pain - Leukocytosis trending down - Per pulm, patient has atalectasis, but not pneumonia - Bile continues to drain, without purulence, in external drain - Initial blood cultures and pleural fluid cultures negative - Repeat BCx collected peripherally and through port; no growth after 3 days - Continue merrem per ID; renally dosed; vancomycin stopped, as below - Diarrhea improving; stool for C diff negative - ID consult requested, appreciate recs MAGALY - Cr elevated today, trended up x4 days - Likely 2/2 vancomycin toxicity vs poor perfusion 2/2 CHF vs dehydration 2/2 diarrhea - Ordered IV lasix to treat CHF/congestion/anasarca - Initial FEUrea 27%, repeat FEUrea >35%, likely mixed prerenal/intrarenal - Renally dose all medications - Requested nephro consult; appreciate recs Hx Afib; hx of SVC thrombus - Cont Digoxin - Continue eliquis 5mg PO BID, per discussion with hem/onc Hx GERD and gastric obstruction w/ gastric erosions and prior GI bleed s/p emergent gastrojejunostomy and enteroenterostomy in 03/2016 - PTX for GI ppx - H&H stable Hx Pancreatic cancer - Dr. Rey consulted - Monitor for any changes - No significant abdominal distention at this time Hx CAD s/p stent - ASA 81mg daily BPH - Flomax home dose GI Ppx: Protonix DVT Ppx: Eliquis Patient was seen, examined and discussed with attending, Dr. Loving <Bryan Loving - Last Filed: 10/27/17 11:48> Objective - Vital Signs/Intake and Output Vital Signs (last 24 hours): Temp Pulse Resp BP Pulse Ox 97.6 F 81 17 117/65 100 10/27/17 08:34 10/27/17 08:34 10/27/17 08:34 10/27/17 09:41 10/27/17 08:34 Intake and Output: 10/27/17 10/27/17 06:59 18:59 Intake Total 170 120 Output Total 300 200 Balance -130 -80 - Medications Medications: Current Medications Acetaminophen (Tylenol 325mg Tab) 650 mg PO Q4 PRN PRN Reason: Pain, Mild (1-3) Apixaban (Eliquis) 5 mg PO BID [facility] PRN Reason: Protocol Last Admin: 10/27/17 09:40 Dose: 5 mg Aspirin (Ecotrin) 81 mg PO DAILY [facility] Last Admin: 10/27/17 09:40 Dose: 81 mg Benzonatate (Tessalon Perles) 100 mg PO TID PRN PRN Reason: Cough Last Admin: 10/24/17 21:45 Dose: 100 mg Digoxin (Lanoxin) 0.25 mg PO 1400 [facility] Last Admin: 10/26/17 14:03 Dose: 0.25 mg Furosemide (Lasix) 20 mg IVP Q12 [facility] Last Admin: 10/27/17 09:41 Dose: 20 mg Guaifenesin (Robitussin) 100 mg PO Q4H PRN PRN Reason: Cough Last Admin: 10/23/17 05:23 Dose: 100 mg Meropenem (Merrem Iv 1 Gm Premix) 50 mls @ 100 mls/hr IVPB Q12 [facility] PRN Reason: Protocol Last Admin: 03/24/18 09:41 Dose: 100 mls/hr Ondansetron HCl (Zofran Inj) 4 mg IVP Q4H PRN PRN Reason: Nausea/Vomiting Pantoprazole Sodium (Protonix Ec Tab) 40 mg PO 0600 [facility] Last Admin: 10/27/17 05:11 Dose: 40 mg Tamsulosin HCl (Flomax) 0.4 mg PO DAILY [facility] Last Admin: 10/27/17 09:40 Dose: 0.4 mg - Labs Labs: 10/27/17 06:00 10/27/17 06:00 PT 26.4 SECONDS (9.4-12.5) H 10/25/17 09:45 INR 2.26 (0.93-1.08) H 10/25/17 09:45 APTT 50.2 Seconds (25.1-36.5) H 10/25/17 09:45 Attending/Attestation - Attestation I have personally seen and examined this patient.: Yes I have fully participated in the care of the patient.: Yes I have reviewed all pertinent clinical information, including history, physical exam and plan: Yes Notes (Text): 10/27/17 11:42 Patient was seen and examined with [facility] [employer]. 66 year old male with PMH of pancreatic cancer, afib, CAD, and diabetes was admitted with obstructive Jaundic, with possible obstructed CBD stent, possible cholangitis and also had pleural effusion,he had failed ERCP attempt followed by percutaneous drainage on Sunday10/22/17 LFT are coming down.Patient is on IV Meropenem as per ID,Vancomycin is on hold. Repeat CT Chest yesterday showed bilateral Pleural effusion and residual right sided Pneumothorax.Patient underwent thoracentesis by IR ,Fluid has lot of RBC but cytology is pending.Patient was evaluated by Surgery, no need for chest tube. Acute renal failure, Creatinine is stable, urine out put is still not accurate, patient is refusing folley catheter, etiology of worsening renal failure is multifactorial,patient has Cardiomyopathy with ef 25%, on IV lasix.Nephrology evaluation is appreciated. Patient is full code at this time. Prognosis is guarded.
[2017-10-26] MEDS: Meropenem IV 1 gm in NS 50 ML IVPB SCH ×2 (09:19→21:15)
--- NOTE | 2017-10-26 10:24 | PN ---
DATE: PULMONARY NOTE SUBJECTIVE: The patient appears comfortable this morning. He is not short of breath at rest. He remains very weak appearing. OBJECTIVE VITAL SIGNS (last noted in the computer): Temperature is 98.7, pulse 80, respirations 18/20, blood pressure 145/91. Oxygen saturation on nasal cannula is 99%-100%. HEENT: Normocephalic, atraumatic. NECK: No JVD. CARDIOVASCULAR: Positive S1, S2. No S3 gallop. LUNGS: Decreased breath sounds at the bases. Mild rhonchi bilaterally. No wheezing. EXTREMITIES: Positive for mild edema. No cyanosis, no clubbing. Calves are nontender to palpation. GASTROINTESTINAL: Abdomen is soft and mildly distended. It is nontender to palpation. There is an intra-abdominal drain in place. SKIN: Positive for significant jaundice. No rashes. NEUROLOGIC: Exam limited at the present time. IMPRESSION 1. Chronic pleural effusions. 2. Chronic mild atelectasis at the bases. 3. Status post multiple thoracenteses. 4. Very small right pneumothorax. 5. Chronic bronchitis. 6. Advanced pancreatic cancer. 7. Increasing jaundice, obstructed common bile duct stent. 8. Anemia. 9. Renal insufficiency. 10. Chronic cardiac arrhythmias. PLAN: The patient appears comfortable this morning. He is not short of breath at rest. He does state to feeling a little better overall. On physical exam, mild bronchospasm persists. However, there is no significant alveolar-arterial gradient. I did try again with the patient this morning - hoping to place him on nebulizer treatments. He continues to refuse. Again, I did bring up the fact that the nebulizer treatments have helped this patient in the past. He still continues to refuse. The last CAT scan of the chest is noted in yesterday's assessment. I doubt acute pneumonia. There are no recent temperatures. Leukocytosis continues to resolve. I would continue with the antibiotic coverage as per Infectious Disease. Input by Dr. Johnson is noted. Input by Juli Bishop (Palliative Care) is also noted. At this point in time, I do not have any other significant recommendations for this patient. Maybe, he will allow the nebulizer treatments in the future. Please call me for any additional pulmonary questions or problems with this patient. Pablo Shipman MD JACK
[2017-10-26] MEDS: Digoxin 250 mcg (0.25 mg) Tab PO SCH (14:03)
--- NOTE | 2017-10-26 14:50 | CP.PCM.PN ---
Subjective - Date & Time of Evaluation Date of Evaluation: 10/26/17 Time of Evaluation: 11:10 - Subjective Subjective: No fevers, not in distress. No diarrhea, no nausea, no abdominal pain. Still with leg swelling. Objective - Vital Signs/Intake and Output Vital Signs (last 24 hours): Temp Pulse Resp BP Pulse Ox 97.5 F L 75 20 159/83 H 97 10/26/17 06:00 10/26/17 06:00 10/26/17 06:00 10/26/17 09:19 10/26/17 06:00 Intake and Output: 10/26/17 10/26/17 06:59 18:59 Intake Total 360 Output Total 490 Balance -130 - Medications Medications: Current Medications Acetaminophen (Tylenol 325mg Tab) 650 mg PO Q4 PRN PRN Reason: Pain, Mild (1-3) Apixaban (Eliquis) 5 mg PO BID [facility] PRN Reason: Protocol Last Admin: 10/26/17 09:19 Dose: 5 mg Aspirin (Ecotrin) 81 mg PO DAILY [facility] Last Admin: 10/26/17 09:19 Dose: 81 mg Benzonatate (Tessalon Perles) 100 mg PO TID PRN PRN Reason: Cough Last Admin: 10/24/17 21:45 Dose: 100 mg Digoxin (Lanoxin) 0.25 mg PO 1400 [facility] Last Admin: 10/25/17 13:38 Dose: 0.25 mg Furosemide (Lasix) 20 mg IVP Q12 [facility] Last Admin: 10/26/17 09:19 Dose: 20 mg Guaifenesin (Robitussin) 100 mg PO Q4H PRN PRN Reason: Cough Last Admin: 10/23/17 05:23 Dose: 100 mg Meropenem (Merrem Iv 1 Gm Premix) 50 mls @ 100 mls/hr IVPB Q12 [facility] PRN Reason: Protocol Last Admin: 10/26/17 09:19 Dose: 100 mls/hr Ondansetron HCl (Zofran Inj) 4 mg IVP Q4H PRN PRN Reason: Nausea/Vomiting Pantoprazole Sodium (Protonix Ec Tab) 40 mg PO 0600 [facility] Last Admin: 10/26/17 05:38 Dose: 40 mg Tamsulosin HCl (Flomax) 0.4 mg PO DAILY [facility] Last Admin: 10/26/17 09:19 Dose: 0.4 mg - Labs Labs: 10/26/17 06:30 10/26/17 06:30 PT 26.4 SECONDS (9.4-12.5) H 10/25/17 09:45 INR 2.26 (0.93-1.08) H 10/25/17 09:45 APTT 50.2 Seconds (25.1-36.5) H 10/25/17 09:45 - Constitutional Appears: Chronically Ill - Head Exam Head Exam: NORMAL INSPECTION - Eye Exam Eye Exam: Scleral icterus - ENT Exam ENT Exam: Mucous Membranes Moist - Neck Exam Neck Exam: absent: Meningismus - Respiratory Exam Respiratory Exam: Decreased Breath Sounds - Cardiovascular Exam Cardiovascular Exam: +S1, +S2 - GI/Abdominal Exam GI & Abdominal Exam: Soft. absent: Tenderness Additional comments: right sided biliary drain in place with bilious material Assessment and Plan - Assessment and Plan (Free Text) Plan: Assessment Systemic inflammatory response syndrome, R/O severe sepsis due to acute cholangitis in this patient with pancreatic cancer with gastric outlet obstruction S/P gastrojejunostomy, on chemotherapy, S/P pancreatic stent placement acute on chronic renal failure, multifactorial, from CHF, from Vancomycin toxicity atrial fibrillation CAD S/P PCI DM history of nephrolithiasis Plan continue Merrem day 8; continue to trend WBC count; Vanco level is slowly going down - check Vanco level daily - discussed with Dr. Clark - will continue to monitor kidney function will continue to monitor clinically overall prognosis is poor
--- NOTE | 2017-10-27 04:55 | CP.PCM.PN ---
Subjective - Date & Time of Evaluation Date of Evaluation: 10/26/17 Time of Evaluation: 12:00 - Subjective Subjective: Patient not reporting any shortness of breath, tolerating diet; no nausea/ vomiting; urinating more since being placed on IV lasix; Objective - Vital Signs/Intake and Output Vital Signs (last 24 hours): Temp Pulse Resp BP Pulse Ox 97.9 F 88 24 108/71 98 10/26/17 16:00 10/26/17 16:00 10/26/17 16:00 10/26/17 21:16 10/26/17 16:00 Intake and Output: 10/26/17 10/27/17 18:59 06:59 Intake Total 120 Output Total 300 Balance -180 - Medications Medications: Current Medications Acetaminophen (Tylenol 325mg Tab) 650 mg PO Q4 PRN PRN Reason: Pain, Mild (1-3) Apixaban (Eliquis) 5 mg PO BID [facility] PRN Reason: Protocol Last Admin: 10/26/17 17:43 Dose: 5 mg Aspirin (Ecotrin) 81 mg PO DAILY [facility] Last Admin: 10/26/17 09:19 Dose: 81 mg Benzonatate (Tessalon Perles) 100 mg PO TID PRN PRN Reason: Cough Last Admin: 10/24/17 21:45 Dose: 100 mg Digoxin (Lanoxin) 0.25 mg PO 1400 [facility] Last Admin: 10/26/17 14:03 Dose: 0.25 mg Furosemide (Lasix) 20 mg IVP Q12 [facility] Last Admin: 10/26/17 21:16 Dose: 20 mg Guaifenesin (Robitussin) 100 mg PO Q4H PRN PRN Reason: Cough Last Admin: 10/23/17 05:23 Dose: 100 mg Meropenem (Merrem Iv 1 Gm Premix) 50 mls @ 100 mls/hr IVPB Q12 [facility] PRN Reason: Protocol Last Admin: 10/26/17 21:15 Dose: 100 mls/hr Ondansetron HCl (Zofran Inj) 4 mg IVP Q4H PRN PRN Reason: Nausea/Vomiting Pantoprazole Sodium (Protonix Ec Tab) 40 mg PO 0600 [facility] Last Admin: 10/26/17 05:38 Dose: 40 mg Tamsulosin HCl (Flomax) 0.4 mg PO DAILY [facility] Last Admin: 10/26/17 09:19 Dose: 0.4 mg - Labs Labs: 10/26/17 06:30 10/26/17 06:30 PT 26.4 SECONDS (9.4-12.5) H 10/25/17 09:45 INR 2.26 (0.93-1.08) H 10/25/17 09:45 APTT 50.2 Seconds (25.1-36.5) H 10/25/17 09:45 - Constitutional Appears: Non-toxic, No Acute Distress - Eye Exam Eye Exam: Scleral icterus - ENT Exam ENT Exam: Mucous Membranes Moist - Respiratory Exam Respiratory Exam: absent: Rhonchi, Respiratory Distress - Cardiovascular Exam Cardiovascular Exam: RRR, +S1, +S2 - GI/Abdominal Exam GI & Abdominal Exam: Soft. absent: Distended - Exam Exam: absent: Bladder Distension - Extremities Exam Additional comments: bilateral lower leg edema with erythema; - Neurological Exam Neurological Exam: Alert, Awake - Psychiatric Exam Psychiatric exam: absent: Agitated Assessment and Plan (1) Acute renal failure Assessment & Plan: ATN secondary to vanco toxicity; non-oliguric renal failure; serum creatinine continuing to increase at a steady rate; -if renal function doesn't stabilize by tomorrow, hold diuretics and reassess over subsequent 24-48 hrs; -avoid further nephrotoxic agents Status: Acute (2) Sepsis Assessment & Plan: Leukocytosis improving; on meropenem 1 g q12, dose already cut back but may need to cut back further for CrCl that is probably less than 20 ml/min (since serum creat still rising); Status: Acute (3) CHF (congestive heart failure) Assessment & Plan: Severe systolic CHF w/ MR, relatively compensated at rest but needs to be on diuretics half-way; see above regarding IV lasix; will have to monitor renal function closely; Status: Acute (4) Metabolic acidosis Assessment & Plan: Slightly worsened but overall mild, no need for bicarb replacement; monitor for now; Status: Acute (5) Nephrolithiasis Status: Chronic
[2017-10-27] MEDS: Pantoprazole 40 mg EC Tab PO SCH (05:11)
[2017-10-27 07:02] LABS: BASO # 0.09 K/mm3 (0.0-2.0); BASO % 0.4 % (0.0-3.0); EOS # 2.4 (0.0-0.7); EOS % 10.9 % (1.5-5.0); GRAN # 15.48 (1.4-6.5); GRAN % 70.8 % (50.0-68.0); HEMOGLOBIN 8.9 g/dL (14.0-18.0); LYMPH # 1.3 (1.2-3.4); LYMPH % 5.7 % (22.0-35.0); MEAN CELL VOLUME 98.1 fl (80.0-105.0); MEAN CORPUSCULAR HEMOGLOBIN 33.6 pg (25.0-35.0); MEAN CORPUSCULAR HGB CONC 34.2 g/dl (31.0-37.0); MEAN PLATELET VOLUME 10.7 fl (7.0-11.0); MONO # 2.7 (0.1-0.6); MONO % 12.2 % (1.0-6.0); RBC 2.65 10^6/uL (3.5-6.1); RED CELL DISTRIBUTION WIDTH 21.5 % (11.5-14.5); WHITE BLOOD COUNT 21.9 10^3/ul (4.5-11.0)
[2017-10-27 07:25] LABS: ALB/GLOB RATIO 0.7 (1.1-1.8); ALBUMIN 2.1 g/dL (3.0-4.8)
[2017-10-27] MEDS: Meropenem IV 1 gm in NS 50 ML IVPB SCH ×2 (09:41→21:21)
--- NOTE | 2017-10-27 10:59 | CP.PCM.PN ---
<Hitesh Nunn - Last Filed: 10/27/17 13:00> Subjective - Date & Time of Evaluation Date of Evaluation: 10/27/17 Time of Evaluation: 10:58 - Subjective Subjective: Patient seen and examined at bedside. Patient denies any new complaints, breathing easy, speaking in complete sentences. Patient continues to have clear rhinorrhea and cough. He denies fever, chest pain, abdominal pain, nausea, vomiting. Diarrhea has improved. Objective - Vital Signs/Intake and Output Vital Signs (last 24 hours): Temp Pulse Resp BP Pulse Ox 97.6 F 81 17 117/65 100 10/27/17 08:34 10/27/17 08:34 10/27/17 08:34 10/27/17 09:41 10/27/17 08:34 Intake and Output: 10/27/17 10/27/17 06:59 18:59 Intake Total 170 120 Output Total 300 200 Balance -130 -80 - Medications Medications: Current Medications Acetaminophen (Tylenol 325mg Tab) 650 mg PO Q4 PRN PRN Reason: Pain, Mild (1-3) Apixaban (Eliquis) 5 mg PO BID [facility] PRN Reason: Protocol Last Admin: 10/27/17 09:40 Dose: 5 mg Aspirin (Ecotrin) 81 mg PO DAILY [facility] Last Admin: 10/27/17 09:40 Dose: 81 mg Benzonatate (Tessalon Perles) 100 mg PO TID PRN PRN Reason: Cough Last Admin: 10/24/17 21:45 Dose: 100 mg Digoxin (Lanoxin) 0.25 mg PO 1400 [facility] Last Admin: 10/26/17 14:03 Dose: 0.25 mg Furosemide (Lasix) 20 mg IVP Q12 [facility] Last Admin: 10/27/17 09:41 Dose: 20 mg Guaifenesin (Robitussin) 100 mg PO Q4H PRN PRN Reason: Cough Last Admin: 10/23/17 05:23 Dose: 100 mg Meropenem (Merrem Iv 1 Gm Premix) 50 mls @ 100 mls/hr IVPB Q12 [facility] PRN Reason: Protocol Last Admin: 10/27/17 09:41 Dose: 100 mls/hr Ondansetron HCl (Zofran Inj) 4 mg IVP Q4H PRN PRN Reason: Nausea/Vomiting Pantoprazole Sodium (Protonix Ec Tab) 40 mg PO 0600 [facility] Last Admin: 10/27/17 05:11 Dose: 40 mg Tamsulosin HCl (Flomax) 0.4 mg PO DAILY [facility] Last Admin: 10/27/17 09:40 Dose: 0.4 mg - Labs Labs: 10/27/17 06:00 10/27/17 06:00 PT 26.4 SECONDS (9.4-12.5) H 10/25/17 09:45 INR 2.26 (0.93-1.08) H 10/25/17 09:45 APTT 50.2 Seconds (25.1-36.5) H 10/25/17 09:45 - Constitutional Appears: Non-toxic - Head Exam Head Exam: ATRAUMATIC, NORMOCEPHALIC - Eye Exam Eye Exam: Scleral icterus - ENT Exam ENT Exam: Mucous Membranes Moist - Respiratory Exam Respiratory Exam: Decreased Breath Sounds (b/l) - Cardiovascular Exam Cardiovascular Exam: RRR, +S1, +S2 - GI/Abdominal Exam GI & Abdominal Exam: Soft. absent: Guarding, Rebound Additional comments: drain intact - Neurological Exam Neurological Exam: Alert, Awake, Oriented x3 - Psychiatric Exam Psychiatric exam: Normal Affect, Normal Mood - Skin Additional comments: jaundiced Assessment and Plan - Assessment and Plan (Free Text) Assessment: 66 yo M PMH pancreatic CA, Afib (on Dig), CAD, R tinnitus, DM2, nephrolithiasis who presents after being seen by Dr. Rey and told to come in for his jaundice. s/p thoracentesis 10/18 with subsequent pneumothorax, now s/p chest tube placement draining serious fluid. s/p urgent ERCP attempted 10/18, failed to pass scope beyond duodenum. s/p percutaneous removal of obstructed CBD stent , drainage of CBD, with indwelling drain, draining dark green bilious fluid. s/ p repeat thoracentesis 10/24 Plan: Hyperbilirubinemia 2/2 obstructed CBD stent with possible cholangitis - s/p percutaneous removal of obstructed CBD stent, drainage of CBD, with indwelling internal/external drain, draining dark green bilious fluid. - T bili elevated, continues to trend down; continue to monitor. - Jaundice improving - Continue IV Abx as below Pleural effusion and cough - Patient symptomatically improved somewhat. - s/p thoracentesis 10/18; cytology negative for malignant cells; protein and LDH indicate transudative effusion; gram stain and culture negative - Reaccumulation of bilateral pleural effusions noted on repeat CT scan; s/p repeat R thoracentesis on 10/24 - Pleural fluid pH low (7.0), concerning for infectious or malignant etiology; though normal WBC with predominant monocytes, more likely benign 2/2 CHF and hypoalbuminemia; LDH, protein, glucose, gram stain and culture pending - Continue guifenasin and tessalon perles PRN for cough - Rapid flu negative - Continue Lasix 20mg IV BID for CHF, bilateral pleural effusion and anasarca; per nephro - Patient may benefit from pleurex catheter placement for chronic recurrent effusions - Requested pulm consult; appreciate recs Leukocytosis likely reactive 2/2 chemo vs cholangitis vs pneumonia - Pt remains afebrile; no abdominal pain - Leukocytosis trending down - Per pulm, patient has atalectasis, but not pneumonia - Bile continues to drain, without purulence, in external drain - Initial blood cultures and pleural fluid cultures negative - Repeat BCx collected peripherally and through port; no growth after 3 days - Continue merrem per ID; renally dosed; vancomycin stopped, as below - Diarrhea improving; stool for C diff negative - ID consult requested, appreciate recs MAGALY: Lasix held in light of rising Creatinine - Cr elevated today, trended up x4 days - Likely 2/2 vancomycin toxicity vs poor perfusion 2/2 CHF vs dehydration 2/2 diarrhea - Ordered IV lasix to treat CHF/congestion/anasarca - Initial FEUrea 27%, repeat FEUrea >35%, likely mixed prerenal/intrarenal - Renally dose all medications - Requested nephro consult; appreciate recs Hx Afib; hx of SVC thrombus - Cont Digoxin - Continue eliquis 5mg PO BID, per discussion with hem/onc Hx GERD and gastric obstruction w/ gastric erosions and prior GI bleed s/p emergent gastrojejunostomy and enteroenterostomy in 03/2016 - PTX for GI ppx - H&H stable Hx Pancreatic cancer - Dr. Rey consulted - Monitor for any changes - No significant abdominal distention at this time Hx CAD s/p stent - ASA 81mg daily BPH - Flomax home dose GI Ppx: Protonix DVT Ppx: Eliquis Patient was seen, examined and discussed with attending, Dr. Loving <Bryan Loving - Last Filed: 10/27/17 16:55> Objective - Vital Signs/Intake and Output Vital Signs (last 24 hours): Temp Pulse Resp BP Pulse Ox 97.6 F 81 17 117/65 100 10/27/17 08:34 10/27/17 08:34 10/27/17 08:34 10/27/17 09:41 10/27/17 08:34 Intake and Output: 10/27/17 10/27/17 06:59 18:59 Intake Total 170 960 Output Total 300 375 Balance -130 585 - Medications Medications: Current Medications Acetaminophen (Tylenol 325mg Tab) 650 mg PO Q4 PRN PRN Reason: Pain, Mild (1-3) Apixaban (Eliquis) 5 mg PO BID [facility] PRN Reason: Protocol Last Admin: 10/27/17 09:40 Dose: 5 mg Aspirin (Ecotrin) 81 mg PO DAILY [facility] Last Admin: 10/27/17 09:40 Dose: 81 mg Benzonatate (Tessalon Perles) 100 mg PO TID PRN PRN Reason: Cough Last Admin: 10/24/17 21:45 Dose: 100 mg Digoxin (Lanoxin) 0.25 mg PO 1400 [facility] Last Admin: 10/27/17 15:09 Dose: 0.25 mg Furosemide (Lasix) 20 mg IVP Q12 [facility] Last Admin: 10/27/17 09:41 Dose: 20 mg Guaifenesin (Robitussin) 100 mg PO Q4H PRN PRN Reason: Cough Last Admin: 10/23/17 05:23 Dose: 100 mg Meropenem (Merrem Iv 1 Gm Premix) 50 mls @ 100 mls/hr IVPB Q12 [facility] PRN Reason: Protocol Last Admin: 10/27/17 09:41 Dose: 100 mls/hr Ondansetron HCl (Zofran Inj) 4 mg IVP Q4H PRN PRN Reason: Nausea/Vomiting Pantoprazole Sodium (Protonix Ec Tab) 40 mg PO 0600 [facility] Last Admin: 10/27/17 05:11 Dose: 40 mg Tamsulosin HCl (Flomax) 0.4 mg PO DAILY [facility] Last Admin: 10/27/17 09:40 Dose: 0.4 mg - Labs Labs: 10/27/17 06:00 10/27/17 06:00 PT 26.4 SECONDS (9.4-12.5) H 10/25/17 09:45 INR 2.26 (0.93-1.08) H 10/25/17 09:45 APTT 50.2 Seconds (25.1-36.5) H 10/25/17 09:45 Attending/Attestation - Attestation I have personally seen and examined this patient.: Yes I have fully participated in the care of the patient.: Yes I have reviewed all pertinent clinical information, including history, physical exam and plan: Yes Notes (Text): 10/27/17 16:52 Patient was seen and examined with internist medical doctor md. 66 year old male with PMH of pancreatic cancer, afib, CAD, and diabetes was admitted with obstructive Jaundic, with possible obstructed CBD stent, possible cholangitis and also had pleural effusion,he had failed ERCP attempt followed by percutaneous drainage on Sunday10/22/17 LFT are coming down.Patient is on IV Meropenem as per ID,Vancomycin has been discontinued.Patient is afebrile. Repeat CT Chest showed bilateral Pleural effusion and residual right sided Pneumothorax.Patient underwent thoracentesis by IR ,Fluid has lot of RBC but cytology is pending.Patient was evaluated by Surgery, no need for chest tube. Acute renal failure, Creatinine is 2.9 today urine out put is still not accurate , patient is refusing folley catheter, etiology of worsening renal failure is multifactorial,patient has Cardiomyopathy EF 25%, on IV lasix.We will monitor BUN and creatinin. SVC thrombosis on anticoagulation with Apixiban Anemia Hemoglobin is stable Prognosis is guarded.
[2017-10-27 14:14] LABS: LDH PLEURAL FLUID 118 U/L; TOTAL PROTEIN PLEURAL FLUID <3.0 g/dL
[2017-10-27] MEDS: Digoxin 250 mcg (0.25 mg) Tab PO SCH (15:09)
--- NOTE | 2017-10-27 19:26 | PN ---
DATE: 10/27/2017 SUBJECTIVE: Patient is in bed, in no acute distress, nontoxic. PHYSICAL EXAMINATION: VITAL SIGNS: Temperature is 98, blood pressure is 108/70, respiratory rate of 18. HEENT: Unremarkable. NECK: Supple. LUNGS: Decreased breath sounds. HEART: Normal S1, S2. ABDOMEN: Soft, nontender. LABORATORY DATA: Reveals a white count of 21,000, hemoglobin of 8, platelets of 304. BUN of 46, creatinine of 2.9. Urinalysis is noted. ASSESSMENT AND PLAN: This is a 66-year-old male who was seen earlier this morning in room 367, bed 1, with systemic inflammatory response syndrome, rule out severe sepsis due to acute cholangitis with pancreatic cancer and gastric outlet obstruction and gastrojejunostomy and chemotherapy, on meropenem day number 9. We will continue to follow with you. Jonathan Alvarez MD
--- NOTE | 2017-10-27 23:16 | CP.PCM.PN ---
Subjective - Date & Time of Evaluation Date of Evaluation: 10/27/17 Time of Evaluation: 11:00 - Subjective Subjective: Patient denies shortness of breath; urinating well; tolerating diet; Objective - Vital Signs/Intake and Output Vital Signs (last 24 hours): Temp Pulse Resp BP Pulse Ox 98.8 F 77 20 124/76 100 10/27/17 16:00 10/27/17 16:00 10/27/17 16:00 10/27/17 16:00 10/27/17 16:00 Intake and Output: 10/27/17 10/28/17 18:59 06:59 Intake Total 960 300 Output Total 375 175 Balance 585 125 - Medications Medications: Current Medications Acetaminophen (Tylenol 325mg Tab) 650 mg PO Q4 PRN PRN Reason: Pain, Mild (1-3) Apixaban (Eliquis) 5 mg PO BID [facility] PRN Reason: Protocol Last Admin: 10/27/17 18:11 Dose: 5 mg Aspirin (Ecotrin) 81 mg PO DAILY [facility] Last Admin: 10/27/17 09:40 Dose: 81 mg Benzonatate (Tessalon Perles) 100 mg PO TID PRN PRN Reason: Cough Last Admin: 10/24/17 21:45 Dose: 100 mg Digoxin (Lanoxin) 0.25 mg PO 1400 [facility] Last Admin: 10/27/17 15:09 Dose: 0.25 mg Furosemide (Lasix) 20 mg IVP Q12 [facility] Last Admin: 10/27/17 09:41 Dose: 20 mg Guaifenesin (Robitussin) 100 mg PO Q4H PRN PRN Reason: Cough Last Admin: 10/23/17 05:23 Dose: 100 mg Meropenem (Merrem Iv 1 Gm Premix) 50 mls @ 100 mls/hr IVPB Q12 [facility] PRN Reason: Protocol Last Admin: 10/27/17 21:21 Dose: 100 mls/hr Ondansetron HCl (Zofran Inj) 4 mg IVP Q4H PRN PRN Reason: Nausea/Vomiting Pantoprazole Sodium (Protonix Ec Tab) 40 mg PO 0600 [facility] Last Admin: 10/27/17 05:11 Dose: 40 mg Tamsulosin HCl (Flomax) 0.4 mg PO DAILY [facility] Last Admin: 10/27/17 09:40 Dose: 0.4 mg - Labs Labs: 10/27/17 06:00 10/27/17 06:00 PT 26.4 SECONDS (9.4-12.5) H 10/25/17 09:45 INR 2.26 (0.93-1.08) H 10/25/17 09:45 APTT 50.2 Seconds (25.1-36.5) H 10/25/17 09:45 - Constitutional Appears: Non-toxic, No Acute Distress - Eye Exam Eye Exam: Scleral icterus - ENT Exam ENT Exam: Mucous Membranes Moist - Respiratory Exam Respiratory Exam: Clear to Ausculation Bilateral. absent: Respiratory Distress - Cardiovascular Exam Cardiovascular Exam: RRR, +S1, +S2 - GI/Abdominal Exam GI & Abdominal Exam: Soft. absent: Distended, Tenderness - Extremities Exam Additional comments: moderate b/l lower leg edema; - Neurological Exam Neurological Exam: Alert, Awake - Psychiatric Exam Psychiatric exam: Normal Affect, Normal Mood. absent: Agitated - Skin Skin Exam: Warm. absent: Cyanosis Additional comments: jaundiced Assessment and Plan (1) Acute renal failure Assessment & Plan: ATN, relatively slow rate of rise in serum creatinine; will hold further diuretics temporarily to avoid confounding clinical picture as renal recovery may be close and diuretics may be causing pre-renal state; -continue to avoid nephrotoxic agents; -monitor for increased UO when renal function starts to improve Status: Acute (2) Sepsis Assessment & Plan: Currently on meropenem; if serum creat continues to rise at the current rate, should dose antibiotic for CrCl < 20; Status: Acute (3) CHF (congestive heart failure) Assessment & Plan: Relatively compensated systolic CHF when at rest; see above regarding diuretics; Status: Acute (4) Metabolic acidosis Assessment & Plan: Relatively mild in the setting of renal insufficiency, continue to monitor for now; Status: Acute (5) Nephrolithiasis Status: Chronic
[2017-10-28] MEDS: Pantoprazole 40 mg EC Tab PO SCH (05:44)
[2017-10-28 06:02] LABS: BASO # 0.15 K/mm3 (0.0-2.0); BASO % 0.7 % (0.0-3.0); EOS # 2.5 (0.0-0.7); GRAN # 14.31 (1.4-6.5); GRAN % 69.8 % (50.0-68.0); HEMOGLOBIN 8.7 g/dL (14.0-18.0); LYMPH # 0.9 (1.2-3.4); LYMPH % 4.3 % (22.0-35.0); MEAN CELL VOLUME 96.9 fl (80.0-105.0); MEAN CORPUSCULAR HEMOGLOBIN 33.9 pg (25.0-35.0); MEAN CORPUSCULAR HGB CONC 34.9 g/dl (31.0-37.0); MEAN PLATELET VOLUME 10.1 fl (7.0-11.0); MONO # 2.7 (0.1-0.6); MONO % 13.2 % (1.0-6.0); RBC 2.57 10^6/uL (3.5-6.1); RED CELL DISTRIBUTION WIDTH 20.6 % (11.5-14.5); WHITE BLOOD COUNT 20.5 10^3/ul (4.5-11.0)
[2017-10-28 06:14] LABS: ALB/GLOB RATIO 0.6 (1.1-1.8)
[2017-10-28] MEDS: Meropenem IV 1 gm in NS 50 ML IVPB SCH ×2 (09:54→21:10)
--- NOTE | 2017-10-28 12:52 | CP.PCM.PN ---
<Hitesh Nunn - Last Filed: 10/28/17 12:54> Subjective - Date & Time of Evaluation Date of Evaluation: 10/28/17 Time of Evaluation: 09:00 - Subjective Subjective: Hitesh Nunn DO, PGY-1: Hospitalist Service Patient seen and examined at bedside. Patient does not endorse any complaints aside from wanting to eat his breakfast in peace. Nurse reports no events overnight. Objective - Vital Signs/Intake and Output Vital Signs (last 24 hours): Temp Pulse Resp BP Pulse Ox 98.1 F 90 20 118/72 92 L 10/28/17 07:52 10/28/17 07:52 10/28/17 07:52 10/28/17 07:52 10/28/17 07:52 Intake and Output: 10/28/17 10/28/17 06:59 18:59 Intake Total 420 Output Total 525 Balance -105 - Medications Medications: Current Medications Acetaminophen (Tylenol 325mg Tab) 650 mg PO Q4 PRN PRN Reason: Pain, Mild (1-3) Apixaban (Eliquis) 5 mg PO BID [facility] PRN Reason: Protocol Last Admin: 10/28/17 09:53 Dose: 5 mg Aspirin (Ecotrin) 81 mg PO DAILY [facility] Last Admin: 10/28/17 09:53 Dose: 81 mg Benzonatate (Tessalon Perles) 100 mg PO TID PRN PRN Reason: Cough Last Admin: 10/24/17 21:45 Dose: 100 mg Digoxin (Lanoxin) 0.25 mg PO 1400 [facility] Last Admin: 10/27/17 15:09 Dose: 0.25 mg Furosemide (Lasix) 20 mg IVP Q12 [facility] Last Admin: 10/27/17 09:41 Dose: 20 mg Guaifenesin (Robitussin) 100 mg PO Q4H PRN PRN Reason: Cough Last Admin: 10/23/17 05:23 Dose: 100 mg Meropenem (Merrem Iv 1 Gm Premix) 50 mls @ 100 mls/hr IVPB Q12 [facility] PRN Reason: Protocol Last Admin: 10/28/17 09:54 Dose: 100 mls/hr Ondansetron HCl (Zofran Inj) 4 mg IVP Q4H PRN PRN Reason: Nausea/Vomiting Pantoprazole Sodium (Protonix Ec Tab) 40 mg PO 0600 [facility] Last Admin: 10/28/17 05:44 Dose: 40 mg Tamsulosin HCl (Flomax) 0.4 mg PO DAILY [facility] Last Admin: 10/28/17 09:53 Dose: 0.4 mg - Labs Labs: 10/28/17 05:50 10/28/17 05:50 PT 26.4 SECONDS (9.4-12.5) H 10/25/17 09:45 INR 2.26 (0.93-1.08) H 10/25/17 09:45 APTT 50.2 Seconds (25.1-36.5) H 10/25/17 09:45 - Constitutional Appears: Non-toxic, No Acute Distress - Head Exam Head Exam: ATRAUMATIC, NORMOCEPHALIC - Eye Exam Eye Exam: Scleral icterus - ENT Exam ENT Exam: Mucous Membranes Moist, Normal Oropharynx - Neck Exam Neck Exam: Normal Inspection - Respiratory Exam Respiratory Exam: Decreased Breath Sounds (bilaterally), NORMAL BREATHING PATTERN - Cardiovascular Exam Cardiovascular Exam: RRR, +S1, +S2 - GI/Abdominal Exam GI & Abdominal Exam: Soft, Normal Bowel Sounds. absent: Guarding, Rebound - Extremities Exam Additional comments: 1/4 pitting edema - Neurological Exam Neurological Exam: Alert, Awake, Oriented x3 - Psychiatric Exam Psychiatric exam: Normal Affect, Normal Mood - Skin Additional comments: jaudiced Assessment and Plan - Assessment and Plan (Free Text) Assessment: 66 yo M PMH pancreatic CA, Afib (on Dig), CAD, R tinnitus, DM2, nephrolithiasis who presents after being seen by Dr. Rey and told to come in for his jaundice. s/p thoracentesis 10/18 with subsequent pneumothorax, now s/p chest tube placement draining serious fluid. s/p urgent ERCP attempted 10/18, failed to pass scope beyond duodenum. s/p percutaneous removal of obstructed CBD stent , drainage of CBD, with indwelling drain, draining dark green bilious fluid. s/ p repeat thoracentesis 10/24 Plan: Hyperbilirubinemia 2/2 obstructed CBD stent with possible cholangitis - s/p percutaneous removal of obstructed CBD stent, drainage of CBD, with indwelling internal/external drain, draining dark green bilious fluid. - T bili trending down, ALT and AST within normal limits. - Jaundice improving - 10/28/17 is day 10 of Merropenem, will f/u with ID recommendations Pleural effusion and cough - Patient symptomatically improved somewhat. - s/p thoracentesis 10/18; cytology negative for malignant cells; protein and LDH indicate transudative effusion; gram stain and culture negative - Reaccumulation of bilateral pleural effusions noted on repeat CT scan; s/p repeat R thoracentesis on 10/24 - Pleural fluid pH low (7.0), concerning for infectious or malignant etiology; though normal WBC with predominant monocytes, more likely benign 2/2 CHF and hypoalbuminemia; LDH, protein, glucose, gram stain and culture pending - Continue guifenasin and tessalon perles PRN for cough - Rapid flu negative - Continue Lasix 20mg IV BID for CHF, bilateral pleural effusion and anasarca; per nephro - Patient may benefit from pleurex catheter placement for chronic recurrent effusions - Requested pulm consult; appreciate recs Leukocytosis likely reactive 2/2 chemo vs cholangitis vs pneumonia - Pt remains afebrile; no abdominal pain - Leukocytosis trending down - Per pulm, patient has atalectasis, but not pneumonia - Bile continues to drain, without purulence, in external drain - Initial blood cultures and pleural fluid cultures negative - Repeat BCx collected peripherally and through port; no growth after 3 days - Continue merrem per ID; renally dosed; vancomycin stopped, as below - Diarrhea improving; stool for C diff negative - ID consult requested, appreciate recs MAGALY: Lasix held in light of rising Creatinine - Cr elevated today, trended up x4 days - Likely 2/2 vancomycin toxicity vs poor perfusion 2/2 CHF vs dehydration 2/2 diarrhea - Ordered IV lasix to treat CHF/congestion/anasarca - Initial FEUrea 27%, repeat FEUrea >35%, likely mixed prerenal/intrarenal - Renally dose all medications - Requested nephro consult; appreciate recs Hx Afib; hx of SVC thrombus - Cont Digoxin - Continue eliquis 5mg PO BID, per discussion with hem/onc Hx GERD and gastric obstruction w/ gastric erosions and prior GI bleed s/p emergent gastrojejunostomy and enteroenterostomy in 03/2016 - PTX for GI ppx - H&H stable Hx Pancreatic cancer - Dr. Rey consulted - Monitor for any changes - No significant abdominal distention at this time Hx CAD s/p stent - ASA 81mg daily BPH - Flomax home dose GI Ppx: Protonix DVT Ppx: Eliquis Patient was seen, examined and discussed with attending, Dr. Loving <Bryan Loving - Last Filed: 10/28/17 15:05> Objective - Vital Signs/Intake and Output Vital Signs (last 24 hours): Temp Pulse Resp BP Pulse Ox 98.1 F 90 20 118/72 92 L 10/28/17 07:52 10/28/17 07:52 10/28/17 07:52 10/28/17 07:52 10/28/17 07:52 Intake and Output: 10/28/17 10/28/17 06:59 18:59 Intake Total 420 840 Output Total 525 200 Balance -105 640 - Medications Medications: Current Medications Acetaminophen (Tylenol 325mg Tab) 650 mg PO Q4 PRN PRN Reason: Pain, Mild (1-3) Apixaban (Eliquis) 5 mg PO BID [facility] PRN Reason: Protocol Last Admin: 10/28/17 09:53 Dose: 5 mg Aspirin (Ecotrin) 81 mg PO DAILY [facility] Last Admin: 10/28/17 09:53 Dose: 81 mg Benzonatate (Tessalon Perles) 100 mg PO TID PRN PRN Reason: Cough Last Admin: 10/24/17 21:45 Dose: 100 mg Digoxin (Lanoxin) 0.25 mg PO 1400 [facility] Last Admin: 10/27/17 15:09 Dose: 0.25 mg Furosemide (Lasix) 20 mg IVP Q12 [facility] Last Admin: 10/27/17 09:41 Dose: 20 mg Guaifenesin (Robitussin) 100 mg PO Q4H PRN PRN Reason: Cough Last Admin: 10/23/17 05:23 Dose: 100 mg Meropenem (Merrem Iv 1 Gm Premix) 50 mls @ 100 mls/hr IVPB Q12 [facility] PRN Reason: Protocol Last Admin: 10/28/17 09:54 Dose: 100 mls/hr Ondansetron HCl (Zofran Inj) 4 mg IVP Q4H PRN PRN Reason: Nausea/Vomiting Pantoprazole Sodium (Protonix Ec Tab) 40 mg PO 0600 [facility] Last Admin: 10/28/17 05:44 Dose: 40 mg Tamsulosin HCl (Flomax) 0.4 mg PO DAILY [facility] Last Admin: 10/28/17 09:53 Dose: 0.4 mg - Labs Labs: 10/28/17 05:50 10/28/17 05:50 PT 26.4 SECONDS (9.4-12.5) H 10/25/17 09:45 INR 2.26 (0.93-1.08) H 10/25/17 09:45 APTT 50.2 Seconds (25.1-36.5) H 10/25/17 09:45 Attending/Attestation - Attestation I have personally seen and examined this patient.: Yes I have fully participated in the care of the patient.: Yes I have reviewed all pertinent clinical information, including history, physical exam and plan: Yes Notes (Text): 10/28/17 14:59 Medical record note made by the resident after discussion with my direction and input after the patient was personally seen and examined by me. I have reviewed the chart and agree that the record accurately reflects by personal performance of the history, physical exam, data review, and medical decision-making, in the course for the patient. I have also personally directed the plan of care. 66 yrs Male with PMH of pancreatic cancer, chronic afib, CAD, and diabetes was admitted with obstructive Jaundic, with possible obstructed CBD stent, possible cholangitis and also had pleural effusion,he had failed ERCP attempt , followed by percutaneous drainage on Sunday10/22/17 LFT are coming down.Patient is on IV Meropenem as per ID,.Patient is afebrile.We will repeat Procalcitonin level. Repeat CT Chest showed bilateral Pleural effusion and residual right sided Pneumothorax.Patient underwent repeat thoracentesis by IR ,Fluid has lot of RBC but cytology is pending.Patient was evaluated by Surgery,there was loculated fluid, and there is no need for chest tube. Acute renal failure, Creatinine is 2.8 today urine out put is still not accurate , patient is refusing folley catheter, etiology of worsening renal failure is multifactorial, patient has Cardiomyopathy EF 25%, We will monitor BUN and creatinin.Nephrology is following. SVC thrombosis on anticoagulation with Apixiban Anemia Hemoglobin is stable.There is no evidence of bleeding. Prognosis is guarded. 10/28/17 15:03
[2017-10-28] MEDS: Digoxin 250 mcg (0.25 mg) Tab PO SCH (15:10)
--- NOTE | 2017-10-28 17:34 | CP.PCM.PN ---
Subjective - Date & Time of Evaluation Date of Evaluation: 10/28/17 Time of Evaluation: 13:00 - Subjective Subjective: Patient reports feeling well; no shortness of breath; tolerating diet; urinating more lately; Objective - Vital Signs/Intake and Output Vital Signs (last 24 hours): Temp Pulse Resp BP Pulse Ox 99 F 84 20 129/70 95 10/28/17 16:00 10/28/17 16:00 10/28/17 16:00 10/28/17 16:00 10/28/17 16:00 Intake and Output: 10/28/17 10/28/17 06:59 18:59 Intake Total 420 840 Output Total 525 200 Balance -105 640 - Medications Medications: Current Medications Acetaminophen (Tylenol 325mg Tab) 650 mg PO Q4 PRN PRN Reason: Pain, Mild (1-3) Apixaban (Eliquis) 5 mg PO BID [facility] PRN Reason: Protocol Last Admin: 10/28/17 09:53 Dose: 5 mg Aspirin (Ecotrin) 81 mg PO DAILY [facility] Last Admin: 10/28/17 09:53 Dose: 81 mg Benzonatate (Tessalon Perles) 100 mg PO TID PRN PRN Reason: Cough Last Admin: 10/24/17 21:45 Dose: 100 mg Digoxin (Lanoxin) 0.25 mg PO 1400 [facility] Last Admin: 10/28/17 15:10 Dose: 0.25 mg Furosemide (Lasix) 20 mg IVP Q12 [facility] Last Admin: 10/27/17 09:41 Dose: 20 mg Guaifenesin (Robitussin) 100 mg PO Q4H PRN PRN Reason: Cough Last Admin: 10/23/17 05:23 Dose: 100 mg Meropenem (Merrem Iv 1 Gm Premix) 50 mls @ 100 mls/hr IVPB Q12 [facility] PRN Reason: Protocol Last Admin: 10/28/17 09:54 Dose: 100 mls/hr Ondansetron HCl (Zofran Inj) 4 mg IVP Q4H PRN PRN Reason: Nausea/Vomiting Pantoprazole Sodium (Protonix Ec Tab) 40 mg PO 0600 [facility] Last Admin: 10/28/17 05:44 Dose: 40 mg Tamsulosin HCl (Flomax) 0.4 mg PO DAILY [facility] Last Admin: 10/28/17 09:53 Dose: 0.4 mg - Labs Labs: 10/28/17 05:50 10/28/17 05:50 PT 26.4 SECONDS (9.4-12.5) H 10/25/17 09:45 INR 2.26 (0.93-1.08) H 10/25/17 09:45 APTT 50.2 Seconds (25.1-36.5) H 10/25/17 09:45 - Constitutional Appears: Non-toxic, No Acute Distress - Eye Exam Eye Exam: Scleral icterus - ENT Exam ENT Exam: Mucous Membranes Moist - Respiratory Exam Respiratory Exam: Clear to Ausculation Bilateral. absent: Rales, Rhonchi, Respiratory Distress - Cardiovascular Exam Cardiovascular Exam: RRR, +S1, +S2 - GI/Abdominal Exam GI & Abdominal Exam: Soft. absent: Tenderness - Extremities Exam Additional comments: 2+ bilateral leg edema; - Neurological Exam Neurological Exam: Alert, Awake - Psychiatric Exam Psychiatric exam: Normal Affect, Normal Mood. absent: Agitated - Skin Skin Exam: absent: Cyanosis Additional comments: jaundiced Assessment and Plan (1) Acute renal failure Assessment & Plan: ATN, now close to renal recovery with serum creatinine slightly improved; non- oliguric renal failure; stable lytes and volume status; -monitor for polyuria; -continue to hold diuretics temporarily; -avoid nephrotoxic agents; Status: Acute (2) Sepsis Assessment & Plan: Leukocytosis stable; on meropenem 1g q12h; CrCl still in flux, may need to adjust meropenem dose frequency once renal functoin close to baseline; Status: Acute (3) CHF (congestive heart failure) Assessment & Plan: With systolic dysfunction; currently asymptomatic; holding diuretics cautiously; Status: Acute (4) Metabolic acidosis Assessment & Plan: Stable, should improve with improving renal function; Status: Acute (5) Nephrolithiasis Status: Chronic
--- NOTE | 2017-10-29 00:02 | PN ---
DATE: 10/28/2017 SUBJECTIVE: Patient is in bed, in no acute distress, was seen earlier this morning in room 367, bed 1. No fevers and chills. PHYSICAL EXAMINATION: VITAL SIGNS: Temperature is 98, blood pressure is 124/76, respiratory rate 20, heart rate 92. HEENT: Unremarkable. NECK: Supple. LUNGS: Decreased breath sounds. HEART: Normal S1, S2. ABDOMEN: Soft, nontender. LABORATORY DATA: Reveals a white count of 20,000, hemoglobin of 8, platelets of 267. Chemistries revealed a BUN of 30, creatinine of 2.8 and procalcitonin is 3.7. Urinalysis is noted. Toxicology is reviewed and patient had a random vancomycin level of 34 and influenza is negative. ASSESSMENT AND PLAN: This is a 66-year-old male who was seen earlier this morning with systemic inflammatory response syndrome, severe sepsis with acute cholangitis and pancreatic cancer, gastric outlet obstruction and gastrojejunostomy and chemotherapy, on meropenem day #10. Review of medications noted. We will follow with you. Jonathan Alvarez MD
[2017-10-29] MEDS: Pantoprazole 40 mg EC Tab PO SCH (05:30)
[2017-10-29 06:36] LABS: BASO # 0.14 K/mm3 (0.0-2.0); BASO % 0.8 % (0.0-3.0); EOS # 2.5 (0.0-0.7); EOS % 14.8 % (1.5-5.0); GRAN # 11.01 (1.4-6.5); GRAN % 64.1 % (50.0-68.0); HEMOGLOBIN 8.1 g/dL (14.0-18.0); LYMPH # 1.2 (1.2-3.4); LYMPH % 6.7 % (22.0-35.0); MEAN CELL VOLUME 97.5 fl (80.0-105.0); MEAN CORPUSCULAR HEMOGLOBIN 33.8 pg (25.0-35.0); MEAN CORPUSCULAR HGB CONC 34.6 g/dl (31.0-37.0); MEAN PLATELET VOLUME 11.2 fl (7.0-11.0); MONO # 2.3 (0.1-0.6); MONO % 13.6 % (1.0-6.0); RBC 2.4 10^6/uL (3.5-6.1); RED CELL DISTRIBUTION WIDTH 19.9 % (11.5-14.5); WHITE BLOOD COUNT 17.2 10^3/ul (4.5-11.0)
[2017-10-29 06:58] LABS: ALB/GLOB RATIO 0.6 (1.1-1.8)
[2017-10-29] MEDS: Meropenem IV 1 gm in NS 50 ML IVPB SCH ×2 (09:46→21:44)
--- NOTE | 2017-10-29 11:51 | PN ---
DATE: 10/29/2017 SUBJECTIVE: The patient has no complaints of any chest pain, no shortness of breath, no headaches. PHYSICAL EXAMINATION: VITAL SIGNS: Temperature is 99, pulse of 84, blood pressure is 129/70, respirations 20. GENERAL: The patient is lying in bed, flat, comfortable. HEENT: No oral lesion. The patient has icteric sclerae. Moist mucosa. NECK: No JVD, adenopathy, or thyromegaly. CARDIOVASCULAR: S1 and S2, regular. No murmurs, rubs, or gallops. LUNGS: Clear to auscultation bilaterally. No wheeze, rales, or rhonchi. ABDOMEN: Bowel sounds are positive, soft, nontender and nondistended. EXTREMITIES: No cyanosis, clubbing or edema. SKIN: The patient has yellowing of the skin. LABORATORY DATA: White count of 17.2, hemoglobin of 8.1, creatinine is 3.0. ASSESSMENT: 1. Acute kidney injury, nonoliguric. 2. Metabolic acidosis. 3. Nephrolithiasis. 4. Sepsis. 5. Pancreatic cancer. 6. Right chest port. PLAN: The patient is currently comfortable. His creatinine is 3, which was 2.8 yesterday. He is getting Flomax for his BPH. He is on Eliquis for anticoagulation. He is on meropenem for antibiotics. The patient is on Protonix daily. He is going to be on Zofran as needed. The patient is on heart-healthy diet. We will repeat the patient's blood work tomorrow. This is coverage for Dr. Clark. Humberto Seay MD
[2017-10-29] MEDS: Prostat 15 g packet PO SCH ×2 (13:14→17:32)
--- NOTE | 2017-10-29 14:06 | CP.PCM.PN ---
<KeonRachidbrittney - Last Filed: 10/29/17 17:36> Subjective - Date & Time of Evaluation Date of Evaluation: 10/29/17 Time of Evaluation: 07:30 - Subjective Subjective: Lavonne Herbert DO PGY1 - IM Progress Note Patient seen and examined at bedside. Per nursing staff, no acute events overnight. Patient denies any new complaints. Denies chest pain, fever, chills, nausea, vomiting, diarrhea, constipation. Stools are soft, but not waterry. Continues to have slight cough, and reports postnasal drip. Objective - Vital Signs/Intake and Output Vital Signs (last 24 hours): Temp Pulse Resp BP Pulse Ox 97.6 F 81 22 119/70 99 10/29/17 08:14 10/29/17 08:14 10/29/17 08:14 10/29/17 08:14 10/29/17 08:14 Intake and Output: 10/29/17 10/29/17 06:59 18:59 Intake Total 200 Output Total 200 Balance 0 - Medications Medications: Current Medications Acetaminophen (Tylenol 325mg Tab) 650 mg PO Q4 PRN PRN Reason: Pain, Mild (1-3) Apixaban (Eliquis) 5 mg PO BID [facility] PRN Reason: Protocol Last Admin: 10/29/17 09:45 Dose: 5 mg Aspirin (Ecotrin) 81 mg PO DAILY [facility] Last Admin: 10/29/17 09:45 Dose: 81 mg Benzonatate (Tessalon Perles) 100 mg PO TID PRN PRN Reason: Cough Last Admin: 10/24/17 21:45 Dose: 100 mg Digoxin (Lanoxin) 0.25 mg PO QOTHERDAY [facility] Furosemide (Lasix) 20 mg IVP Q12 [facility] Last Admin: 10/27/17 09:41 Dose: 20 mg Guaifenesin (Robitussin) 100 mg PO Q4H PRN PRN Reason: Cough Last Admin: 10/23/17 05:23 Dose: 100 mg Meropenem (Merrem Iv 1 Gm Premix) 50 mls @ 100 mls/hr IVPB Q12 [facility] PRN Reason: Protocol Last Admin: 10/29/17 09:46 Dose: 100 mls/hr Ondansetron HCl (Zofran Inj) 4 mg IVP Q4H PRN PRN Reason: Nausea/Vomiting Pantoprazole Sodium (Protonix Ec Tab) 40 mg PO 0600 [facility] Last Admin: 10/29/17 05:30 Dose: 40 mg Phytonadione (Vitamin K Tab) 5 mg PO DAILY [facility] Stop: 11/03/17 12:16 Last Admin: 10/29/17 13:01 Dose: 5 mg Tamsulosin HCl (Flomax) 0.4 mg PO DAILY [facility] Last Admin: 10/29/17 09:46 Dose: 0.4 mg - Labs Labs: 10/29/17 06:20 10/29/17 06:20 PT 26.4 SECONDS (9.4-12.5) H 10/25/17 09:45 INR 2.26 (0.93-1.08) H 10/25/17 09:45 APTT 50.2 Seconds (25.1-36.5) H 10/25/17 09:45 - Additional Findings Additional findings: - Constitutional Appears: Non-toxic, No Acute Distress - Head Exam Head Exam: ATRAUMATIC, NORMOCEPHALIC - Eye Exam Eye Exam: Scleral icterus - ENT Exam ENT Exam: Mucous Membranes Moist, Normal Oropharynx - Neck Exam Neck Exam: Normal Inspection - Respiratory Exam Respiratory Exam: Decreased Breath Sounds (bilaterally), NORMAL BREATHING PATTERN - Cardiovascular Exam Cardiovascular Exam: RRR, +S1, +S2 - GI/Abdominal Exam GI & Abdominal Exam: Soft, Normal Bowel Sounds. absent: Guarding, Rebound - Extremities Exam Additional comments: 1/4 pitting edema - Neurological Exam Neurological Exam: Alert, Awake, Oriented x3 - Psychiatric Exam Psychiatric exam: Normal Affect, Normal Mood - Skin Additional comments: jaundice, improving Assessment and Plan - Assessment and Plan (Free Text) Assessment: 66 yo M PMH pancreatic CA, Afib (on Dig), CAD, R tinnitus, DM2, nephrolithiasis who presents after being seen by Dr. Rey and told to come in for his jaundice. s/p thoracentesis 10/18 with subsequent pneumothorax, now s/p chest tube placement draining serious fluid. s/p urgent ERCP attempted 10/18, failed to pass scope beyond duodenum. s/p percutaneous removal of obstructed CBD stent , drainage of CBD, with indwelling drain, draining dark green bilious fluid. s/ p repeat thoracentesis 10/24. Now with ARF likely ATN 2/2 vancomycin nephrotoxicity vs congestion Plan: Hyperbilirubinemia 2/2 obstructed CBD stent with possible cholangitis - s/p percutaneous removal of obstructed CBD stent, drainage of CBD, with indwelling internal/external drain, draining dark green bilious fluid. - T bili trending down, ALT and AST within normal limits. - Jaundice improving - Continue Merrem to complete 14 day course - Patient mildly coagulopathic; started Vit K once daily for 5 days Pleural effusion and cough - s/p thoracentesis 10/18; cytology negative for malignant cells; protein and LDH indicate transudative effusion; gram stain and culture negative - Reaccumulation of bilateral pleural effusions noted on repeat CT scan; s/p repeat R thoracentesis on 10/24 - Pleural fluid pH low (7.0), concerning for infectious or malignant etiology; though normal WBC with predominant monocytes, more likely benign 2/2 CHF and hypoalbuminemia; LDH and protein again show transudate; glucose normal; cultures negative - Continue guifenasin and tessalon perles PRN for cough - Lasix held; per nephro - Requested pulm consult; appreciate recs Leukocytosis likely reactive 2/2 chemo vs cholangitis vs pneumonia - Pt remains afebrile; no abdominal pain - Leukocytosis trending down - Per pulm, patient has atalectasis, but not pneumonia - Bile continues to drain, without purulence, in external drain - Initial and repeat blood and sputum cultures negative - Continue merrem per ID; renally dosed; vancomycin stopped, as below - Diarrhea improving; stool for C diff negative - ID consult requested, appreciate recs MAGALY: Lasix held in light of rising Creatinine - Cr elevated today, trended up x4 days - Likely 2/2 vancomycin toxicity vs poor perfusion 2/2 CHF vs dehydration 2/2 diarrhea - Ordered IV lasix to treat CHF/congestion/anasarca - Initial FEUrea 27%, repeat FEUrea >35%, likely mixed prerenal/intrarenal - Renally dose all medications - Requested nephro consult; appreciate recs Hx Afib; hx of SVC thrombus - Cont Digoxin; changed dosing to every other day due to renal failure - Continue eliquis 5mg PO BID, per discussion with hem/onc Hx GERD and gastric obstruction w/ gastric erosions and prior GI bleed s/p emergent gastrojejunostomy and enteroenterostomy in 03/2016 - PTX for GI ppx - H&H stable Hx Pancreatic cancer - Dr. Rey consulted - Monitor for any changes - No significant abdominal distention at this time Hx CAD s/p stent - ASA 81mg daily BPH - Flomax home dose GI Ppx: Protonix DVT Ppx: Eliquis Patient was seen, examined and discussed with attending, Dr. Mae <Charlie Mae - Last Filed: 11/02/17 13:16> Objective - Vital Signs/Intake and Output Vital Signs (last 24 hours): Temp Pulse Resp BP Pulse Ox 97 F L 77 19 131/78 99 11/01/17 08:04 11/01/17 08:04 11/01/17 08:04 11/01/17 08:04 11/01/17 08:04 - Labs Labs: 11/01/17 06:00 11/01/17 06:00 PT 15.9 SECONDS (9.4-12.5) H 10/30/17 17:21 INR 1.39 (0.93-1.08) H 10/30/17 17:21 APTT 43.1 Seconds (25.1-36.5) H 10/30/17 06:00 Attending/Attestation - Attestation I have personally seen and examined this patient.: Yes I have fully participated in the care of the patient.: Yes I have reviewed all pertinent clinical information, including history, physical exam and plan: Yes Notes (Text): 66 yo M PMH pancreatic CA, Afib (on Dig), CAD, R tinnitus, DM2, nephrolithiasis who presents after being seen by Dr. Rey and told to come in for his jaundice. s/p thoracentesis 10/18 with subsequent pneumothorax, now s/p chest tube placement draining serious fluid. s/p urgent ERCP attempted 10/18, failed to pass scope beyond duodenum. s/p percutaneous removal of obstructed CBD stent , drainage of CBD, with indwelling drain, draining dark green bilious fluid. s/ p repeat thoracentesis 10/24. Now with ARF likely ATN 2/2 vancomycin nephrotoxicity vs congestion Plan: Hyperbilirubinemia 2/2 obstructed CBD stent with possible cholangitis Pleural effusion and cough Leukocytosis likely reactive 2/2 chemo /cholangitis /pneumonia MAGALY: Lasix held in light of rising Creatinine Hx Afib; hx of SVC thrombus
--- NOTE | 2017-10-29 15:43 | CP.PCM.PN ---
Subjective - Date & Time of Evaluation Date of Evaluation: 10/29/17 Time of Evaluation: 10:35 - Subjective Subjective: Resting in bed comfortably, no fevers, no abdominal pain, no diarrhea. Objective - Vital Signs/Intake and Output Vital Signs (last 24 hours): Temp Pulse Resp BP Pulse Ox 97.6 F 81 22 119/70 99 10/29/17 08:14 10/29/17 08:14 10/29/17 08:14 10/29/17 08:14 10/29/17 08:14 Intake and Output: 10/29/17 10/29/17 06:59 18:59 Intake Total 200 Output Total 200 Balance 0 - Medications Medications: Current Medications Acetaminophen (Tylenol 325mg Tab) 650 mg PO Q4 PRN PRN Reason: Pain, Mild (1-3) Apixaban (Eliquis) 5 mg PO BID [facility] PRN Reason: Protocol Last Admin: 10/28/17 18:14 Dose: 5 mg Aspirin (Ecotrin) 81 mg PO DAILY [facility] Last Admin: 10/28/17 09:53 Dose: 81 mg Benzonatate (Tessalon Perles) 100 mg PO TID PRN PRN Reason: Cough Last Admin: 10/24/17 21:45 Dose: 100 mg Digoxin (Lanoxin) 0.25 mg PO 1400 [facility] Last Admin: 10/28/17 15:10 Dose: 0.25 mg Furosemide (Lasix) 20 mg IVP Q12 [facility] Last Admin: 10/27/17 09:41 Dose: 20 mg Guaifenesin (Robitussin) 100 mg PO Q4H PRN PRN Reason: Cough Last Admin: 10/23/17 05:23 Dose: 100 mg Meropenem (Merrem Iv 1 Gm Premix) 50 mls @ 100 mls/hr IVPB Q12 [facility] PRN Reason: Protocol Last Admin: 10/28/17 21:10 Dose: 100 mls/hr Ondansetron HCl (Zofran Inj) 4 mg IVP Q4H PRN PRN Reason: Nausea/Vomiting Pantoprazole Sodium (Protonix Ec Tab) 40 mg PO 0600 [facility] Last Admin: 10/29/17 05:30 Dose: 40 mg Tamsulosin HCl (Flomax) 0.4 mg PO DAILY [facility] Last Admin: 10/28/17 09:53 Dose: 0.4 mg - Labs Labs: 03/26/18 06:20 10/29/17 06:20 PT 26.4 SECONDS (9.4-12.5) H 10/25/17 09:45 INR 2.26 (0.93-1.08) H 10/25/17 09:45 APTT 50.2 Seconds (25.1-36.5) H 10/25/17 09:45 - Constitutional Appears: Chronically Ill - Head Exam Head Exam: NORMAL INSPECTION - Eye Exam Eye Exam: Scleral icterus - Neck Exam Neck Exam: absent: Meningismus - Respiratory Exam Respiratory Exam: Decreased Breath Sounds Additional comments: right anterior chest wall port in place - Cardiovascular Exam Cardiovascular Exam: +S1, +S2 - GI/Abdominal Exam GI & Abdominal Exam: Soft. absent: Tenderness Additional comments: biliary drain in place Assessment and Plan - Assessment and Plan (Free Text) Plan: Assessment Systemic inflammatory response syndrome, R/O severe sepsis due to acute cholangitis in this patient with pancreatic cancer with gastric outlet obstruction S/P gastrojejunostomy, on chemotherapy, S/P pancreatic stent placement acute on chronic renal failure, multifactorial, from CHF, from Vancomycin toxicity, slowly improving atrial fibrillation CAD S/P PCI DM history of nephrolithiasis Plan continue Merrem day 11 to complete 10-14 days of therapy; continue to trend WBC count; Vanco level is slowly going down - check Vanco level daily - will continue to monitor kidney function will continue to monitor clinically overall prognosis is poor
[2017-10-30] MEDS: Pantoprazole 40 mg EC Tab PO SCH (06:08)
[2017-10-30 06:41] LABS: BASO # 0.18 K/mm3 (0.0-2.0); BASO % 1.1 % (0.0-3.0); EOS % 18.1 % (1.5-5.0); GRAN # 10.01 (1.4-6.5); LYMPH % 6.2 % (22.0-35.0); MEAN CELL VOLUME 97.9 fl (80.0-105.0); MEAN CORPUSCULAR HEMOGLOBIN 34.3 pg (25.0-35.0); MEAN CORPUSCULAR HGB CONC 35.1 g/dl (31.0-37.0); MEAN PLATELET VOLUME 10.7 fl (7.0-11.0); MONO # 2.2 (0.1-0.6); MONO % 13.6 % (1.0-6.0); RBC 2.33 10^6/uL (3.5-6.1); RED CELL DISTRIBUTION WIDTH 19.5 % (11.5-14.5); WHITE BLOOD COUNT 16.4 10^3/ul (4.5-11.0)
[2017-10-30 06:57] LABS: INR 1.57 (0.93-1.08); PARTIAL THROMBOPLASTIN TIME 43.1 Seconds (25.1-36.5); PROTHROMBIN TIME 18.2 SECONDS (9.4-12.5)
[2017-10-30 07:05] LABS: CALCIUM 7.7 mg/dL (8.4-10.5)
--- NOTE | 2017-10-30 08:34 | PN ---
DATE: 10/30/2017 SUBJECTIVE: The patient has no complaints of any chest pain, no shortness of breath, no headaches. PHYSICAL EXAMINATION: VITAL SIGNS: Temperature is 97, pulse 93, blood pressure 144/86, respirations 20. GENERAL: The patient is lying in bed, flat, comfortable. HEENT: No oral lesion. Anicteric sclerae. Moist mucosa. NECK: No JVD, adenopathy, or thyromegaly. CARDIOVASCULAR: S1 and S2, regular. No murmurs, rubs, or gallops. LUNGS: Clear to auscultation bilaterally. No wheeze, rales, or rhonchi. ABDOMEN: Bowel sounds are positive, soft, nontender and nondistended. EXTREMITIES: No cyanosis, clubbing or edema. LABORATORY DATA: White count of 17.2, hemoglobin is 8.1, creatinine is 3.0. ASSESSMENT: 1. Acute kidney injury, nonoliguric. 2. Metabolic acidosis. 3. Nephrolithiasis. 4. Sepsis. 5. Pancreatic cancer. 6. Right chest port. 7. Pleural effusion. 8. Obstructed common bile duct stent. 9. Coronary artery disease. 10. Benign prostatic hypertrophy. 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 PLAN: The patient has a creatinine that is stabilized about 3. The white count is slowly improving. As the patient's underlying sepsis improves, the patient's kidney function should improve, but most likely there will be degree of delay. The patient is on Flomax for his BPH. He is on Eliquis for his thrombus. He is on Protonix daily. I will discontinue the patient's Protonix, because it can cause chronic kidney disease. The patient's INR was therapeutic, last was 2.2. The patient is on Zofran as needed. He is on a heart-healthy diet. His labs this morning are pending. His vancomycin level is also pending. Humberto Seay MD
[2017-10-30] MEDS: Prostat 15 g packet PO SCH ×3 (09:22→18:29)
--- NOTE | 2017-10-30 10:22 | CP.PCM.PN ---
<Lavonne Herbert - Last Filed: 10/30/17 10:13> Subjective - Date & Time of Evaluation Date of Evaluation: 10/30/17 Time of Evaluation: 07:30 - Subjective Subjective: Rachidimanakila Keon DO PGY1 - IM Progress Note Patient seen and examined at bedside. Per nursing staff, no acute events overnight. Cough slightly improved today. Patient denies any new complaints. Denies chest pain, fever, chills, nausea, vomiting, diarrhea, constipation. Stools are soft, but not waterry. Objective - Vital Signs/Intake and Output Vital Signs (last 24 hours): Temp Pulse Resp BP Pulse Ox 97.8 F 87 20 105/62 98 10/30/17 08:16 10/30/17 08:16 10/30/17 08:16 10/30/17 08:16 10/30/17 08:16 Intake and Output: 10/30/17 10/30/17 06:59 18:59 Intake Total 400 Output Total 100 Balance 300 - Medications Medications: Current Medications Acetaminophen (Tylenol 325mg Tab) 650 mg PO Q4 PRN PRN Reason: Pain, Mild (1-3) Apixaban (Eliquis) 5 mg PO BID [facility] PRN Reason: Protocol Last Admin: 10/29/17 17:31 Dose: 5 mg Aspirin (Ecotrin) 81 mg PO DAILY [facility] Last Admin: 10/29/17 09:45 Dose: 81 mg Benzonatate (Tessalon Perles) 100 mg PO TID PRN PRN Reason: Cough Last Admin: 10/24/17 21:45 Dose: 100 mg Digoxin (Lanoxin) 0.25 mg PO QOTHERDAY [facility] Furosemide (Lasix) 20 mg IVP Q12 [facility] Last Admin: 10/27/17 09:41 Dose: 20 mg Guaifenesin (Robitussin) 100 mg PO Q4H PRN PRN Reason: Cough Last Admin: 10/23/17 05:23 Dose: 100 mg Meropenem (Merrem Iv 1 Gm Premix) 50 mls @ 100 mls/hr IVPB Q12 [facility] PRN Reason: Protocol Last Admin: 10/29/17 21:44 Dose: 100 mls/hr Ondansetron HCl (Zofran Inj) 4 mg IVP Q4H PRN PRN Reason: Nausea/Vomiting Phytonadione (Vitamin K Tab) 5 mg PO DAILY [facility] Stop: 11/03/17 12:16 Last Admin: 10/29/17 13:01 Dose: 5 mg Tamsulosin HCl (Flomax) 0.4 mg PO DAILY [facility] Last Admin: 10/29/17 09:46 Dose: 0.4 mg - Labs Labs: 10/30/17 06:00 10/30/17 06:00 PT 18.2 SECONDS (9.4-12.5) H 10/30/17 06:00 INR 1.57 (0.93-1.08) H 10/30/17 06:00 APTT 43.1 Seconds (25.1-36.5) H 10/30/17 06:00 - Additional Findings Additional findings: - Constitutional Appears: Non-toxic, No Acute Distress - Head Exam Head Exam: ATRAUMATIC, NORMOCEPHALIC - Eye Exam Eye Exam: Scleral icterus - ENT Exam ENT Exam: Mucous Membranes Moist, Normal Oropharynx - Neck Exam Neck Exam: Normal Inspection - Respiratory Exam Respiratory Exam: Decreased Breath Sounds (bilaterally), NORMAL BREATHING PATTERN - Cardiovascular Exam Cardiovascular Exam: RRR, +S1, +S2 - GI/Abdominal Exam GI & Abdominal Exam: Soft, Normal Bowel Sounds. absent: Guarding, Rebound - Extremities Exam Additional comments: 1/4 pitting edema - Neurological Exam Neurological Exam: Alert, Awake, Oriented x3 - Psychiatric Exam Psychiatric exam: Normal Affect, Normal Mood - Skin Additional comments: jaundice, improving Assessment and Plan - Assessment and Plan (Free Text) Assessment: 66 yo M PMH pancreatic CA, Afib (on Dig), CAD, R tinnitus, DM2, nephrolithiasis who presents after being seen by Dr. Rey and told to come in for his jaundice. s/p thoracentesis 10/18 with subsequent pneumothorax, now s/p chest tube placement draining serious fluid. s/p urgent ERCP attempted 10/18, failed to pass scope beyond duodenum. s/p percutaneous removal of obstructed CBD stent , drainage of CBD, with indwelling drain, draining dark green bilious fluid. s/ p repeat thoracentesis 10/24. Now with ARF likely ATN 2/2 vancomycin nephrotoxicity vs congestion Plan: Hyperbilirubinemia 2/2 obstructed CBD stent with possible cholangitis - s/p percutaneous removal of obstructed CBD stent, drainage of CBD, with indwelling internal/external drain, draining dark green bilious fluid. - T bili trending down, ALT and AST within normal limits. - Jaundice improving - Continue Merrem to complete 14 day course - INR improved today; hold vitamin K and recheck with AM labs - Will discuss with IR to consider re-placement of stent vs keeping drain Pleural effusion and cough - s/p thoracentesis 10/18 and again repeated on 10/24; twice negative cytology and culture; twice protein and LDH indicate transudate - Continue guifenasin and tessalon perles PRN for cough - Lasix held; per nephro - Requested pulm consult; appreciate recs Leukocytosis likely reactive 2/2 chemo vs cholangitis vs pneumonia - Pt remains afebrile; no abdominal pain - Leukocytosis trending down - Per pulm, patient has atalectasis, but not pneumonia - Bile continues to drain, without purulence, in external drain - Initial and repeat blood and sputum cultures negative - Continue merrem per ID; renally dosed; vancomycin stopped, as below - Diarrhea improving; stool for C diff negative - ID consult requested, appreciate recs MAGALY - Cr stable today, no longer trending up; continue to trend, watch for polyuric phase of ATN recovery - Likely 2/2 vancomycin toxicity; intrarenal FEUrea with coarse granular casts in UA - Lasix held per nephro - Renally dose all medications - Requested nephro consult; appreciate recs Hx Afib; hx of SVC thrombus - Cont Digoxin; changed dosing to every other day due to renal failure - Continue eliquis 5mg PO BID, per discussion with hem/onc Hx GERD and gastric obstruction w/ gastric erosions and prior GI bleed s/p emergent gastrojejunostomy and enteroenterostomy in 03/2016 - PTX for GI ppx - H&H stable Hx Pancreatic cancer - Dr. Rey consulted - Monitor for any changes - No significant abdominal distention at this time Hx CAD s/p stent - ASA 81mg daily BPH - Flomax home dose GI Ppx: Protonix DVT Ppx: Eliquis Patient was seen, examined and discussed with attending, Dr. Batista <Jessica Batista - Last Filed: 10/30/17 12:39> Objective - Vital Signs/Intake and Output Vital Signs (last 24 hours): Temp Pulse Resp BP Pulse Ox 97.8 F 87 20 105/62 98 10/30/17 08:16 10/30/17 08:16 10/30/17 08:16 10/30/17 08:16 10/30/17 08:16 Intake and Output: 10/30/17 10/30/17 06:59 18:59 Intake Total 400 Output Total 100 Balance 300 - Medications Medications: Current Medications Acetaminophen (Tylenol 325mg Tab) 650 mg PO Q4 PRN PRN Reason: Pain, Mild (1-3) Apixaban (Eliquis) 5 mg PO BID [facility] PRN Reason: Protocol Last Admin: 10/30/17 10:52 Dose: 5 mg Aspirin (Ecotrin) 81 mg PO DAILY [facility] Last Admin: 10/30/17 10:52 Dose: 81 mg Benzonatate (Tessalon Perles) 100 mg PO TID PRN PRN Reason: Cough Last Admin: 10/24/17 21:45 Dose: 100 mg Digoxin (Lanoxin) 0.25 mg PO QOTHERDAY [facility] Last Admin: 10/30/17 10:53 Dose: 0.25 mg Furosemide (Lasix) 20 mg IVP Q12 [facility] Last Admin: 10/27/17 09:41 Dose: 20 mg Guaifenesin (Robitussin) 100 mg PO Q4H PRN PRN Reason: Cough Last Admin: 10/23/17 05:23 Dose: 100 mg Meropenem (Merrem Iv 1 Gm Premix) 50 mls @ 100 mls/hr IVPB Q12 [facility] PRN Reason: Protocol Last Admin: 10/30/17 10:54 Dose: 100 mls/hr Ondansetron HCl (Zofran Inj) 4 mg IVP Q4H PRN PRN Reason: Nausea/Vomiting Phytonadione (Vitamin K Tab) 5 mg PO DAILY [facility] Stop: 11/03/17 12:16 Last Admin: 10/30/17 10:46 Dose: Not Given Tamsulosin HCl (Flomax) 0.4 mg PO DAILY [facility] Last Admin: 10/30/17 10:52 Dose: 0.4 mg - Labs Labs: 10/30/17 06:00 10/30/17 06:00 PT 18.2 SECONDS (9.4-12.5) H 10/30/17 06:00 INR 1.57 (0.93-1.08) H 10/30/17 06:00 APTT 43.1 Seconds (25.1-36.5) H 10/30/17 06:00 Attending/Attestation - Attestation I have personally seen and examined this patient.: Yes I have fully participated in the care of the patient.: Yes I have reviewed all pertinent clinical information, including history, physical exam and plan: Yes Notes (Text): 10/30/17 12:03 66 year old male with past medical history of pancreatic cancer, chronic atrial fibrillation, CAD and diabetes who presented with obstructive jaundice with possible obstructed CBD stent, possible cholangitis and pleural effusion. He had initial failed ERCP which was followed by IR percutaneous drainage last week. His LFTs, bilirubin and leukocytosis have improved. Continue with meropenem as per ID. Nephrology is following for MAGALY. Creatinine is stable today at 3.0. He also had pleural effusion s/p thoracocentesis x2. He is on eliquis for [id number] of SVC thrombosis and afib. Jessica Batista MD Hospitalist.
[2017-10-30] MEDS: Digoxin 250 mcg (0.25 mg) Tab PO SCH (10:53)
[2017-10-30] MEDS: Meropenem IV 1 gm in NS 50 ML IVPB SCH (10:54)
[2017-10-30 17:43] LABS: INR 1.39 (0.93-1.08); PROTHROMBIN TIME 15.9 SECONDS (9.4-12.5)
--- NOTE | 2017-10-31 00:05 | PN ---
DATE: 10/30/2017 SUBJECTIVE: The patient is in bed, in no acute distress. PHYSICAL EXAMINATION: VITAL SIGNS: Temperature is 98, blood pressure is 120/70, and respiratory rate of 16. HEENT: Unremarkable. NECK: Supple. LUNGS: Have decreased breath sounds. HEART: Normal S1 and S2. ABDOMEN: Soft, nontender. LABORATORY DATA: Reveals a white count of 16,000 and hemoglobin of 8. Chemistries are noted and creatinine is 3. Procalcitonin is 3.77. Stool for C. diff from 10/24/2017 is reported to be negative C. diff antigen and toxin. Fungal culture has no fungal element. Dr. Seay's note is reviewed. ASSESSMENT AND PLAN: This is a 66-year-old male, who was seen earlier this morning in room 367, bed 1, with systemic inflammatory response syndrome, rule out severe sepsis due to acute cholangitis in a patient with pancreatic cancer and gastric outlet obstruction, on chemotherapy, pancreatic stent placement, day number 12 of meropenem with patient's creatinine of 3.0 and random vancomycin level of 23. Currently, he is off of antibiotics. Jonathan Alvarez MD
[2017-10-31 06:49] LABS: BASO # 0.13 K/mm3 (0.0-2.0); BASO % 0.9 % (0.0-3.0); EOS # 2.5 (0.0-0.7); EOS % 17.1 % (1.5-5.0); GRAN # 8.95 (1.4-6.5); GRAN % 61.1 % (50.0-68.0); HEMOGLOBIN 7.9 g/dL (14.0-18.0); LYMPH # 1.1 (1.2-3.4); LYMPH % 7.2 % (22.0-35.0); MEAN CELL VOLUME 97.9 fl (80.0-105.0); MEAN CORPUSCULAR HEMOGLOBIN 33.5 pg (25.0-35.0); MEAN CORPUSCULAR HGB CONC 34.2 g/dl (31.0-37.0); MEAN PLATELET VOLUME 10.9 fl (7.0-11.0); MONO % 13.7 % (1.0-6.0); RBC 2.36 10^6/uL (3.5-6.1); WHITE BLOOD COUNT 14.7 10^3/ul (4.5-11.0)
[2017-10-31 07:14] LABS: ALB/GLOB RATIO 0.6 (1.1-1.8)
[2017-10-31] MEDS: Prostat 15 g packet PO SCH ×3 (08:57→16:51)
--- NOTE | 2017-10-31 10:47 | PN ---
DATE: 10/31/2017 SUBJECTIVE: The patient has no complaints of any chest pain, no shortness of breath, no headaches or dizziness. PHYSICAL EXAMINATION: VITAL SIGNS: Temperature is 98.2, pulse of 86, blood pressure 119/67, respirations 20. GENERAL: The patient is lying in bed, flat, comfortable. HEENT: No oral lesion. Anicteric sclerae. Moist mucosa. NECK: No JVD, adenopathy, or thyromegaly. CARDIOVASCULAR: S1 and S2, regular. No murmurs, rubs, or gallops. LUNGS: Clear to auscultation bilaterally. No wheeze, rales, or rhonchi. ABDOMEN: Bowel sounds are positive, soft, nontender and nondistended. EXTREMITIES: no cyanosis, clubbing or edema. LABORATORY DATA: White count of 14.7, hemoglobin 7.9, creatinine 3.0. ASSESSMENT: 1. Acute kidney injury secondary to vancomycin-induced nephropathy. 2. Metabolic acidosis. 3. Nephrolithiasis. 4. Sepsis. 5. Pancreatic cancer. 6. Right chest port. 7. Pleural effusion. 8. Obstructed common bile duct stent. 9. Coronary artery disease. 10. Benign prostatic hypertrophy. 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 PLAN: The patient is currently on aspirin. He is going to continue his Flomax for his benign prostatic hypertrophy. The patient has a white count that is slowly improving. It is 14.7. The patient's creatinine has been stable at 3. There is no indication for dialysis at this point. The patient is on Zofran. He is going to continue with his Robitussin. He is on heart healthy diet. The patient continues to be on meropenem. Last random vancomycin level was 23. Currently, the patient is off of antibiotics. Humberto Seay MD
--- NOTE | 2017-10-31 16:42 | CP.PCM.PN ---
<Rachid Herbertimanakila - Last Filed: 10/31/17 16:29> Subjective - Date & Time of Evaluation Date of Evaluation: 10/31/17 Time of Evaluation: 07:30 - Subjective Subjective: Lavonne Herbert DO PGY1 - IM Progress Note Patient seen and examined at bedside. Per nursing staff, no acute events overnight. Patient is being monitored for recovery of renal function, with noted anemia. He continues to have a cough, with mild improvement noted. He denies chest pain, shortness of breath, abdominal pain, fever, chills, nausea, vomiting, diarrhea, consipation. Objective - Vital Signs/Intake and Output Vital Signs (last 24 hours): Temp Pulse Resp BP Pulse Ox 98.9 F 82 18 118/62 100 10/31/17 16:23 10/31/17 16:23 10/31/17 16:23 10/31/17 16:23 10/31/17 06:23 Intake and Output: 10/31/17 10/31/17 06:59 18:59 Intake Total 360 40 Output Total 250 Balance 110 40 - Medications Medications: Current Medications Acetaminophen (Tylenol 325mg Tab) 650 mg PO Q4 PRN PRN Reason: Pain, Mild (1-3) Apixaban (Eliquis) 5 mg PO BID [facility] PRN Reason: Protocol Last Admin: 10/31/17 09:50 Dose: 5 mg Aspirin (Ecotrin) 81 mg PO DAILY [facility] Last Admin: 10/31/17 09:50 Dose: 81 mg Benzonatate (Tessalon Perles) 100 mg PO TID PRN PRN Reason: Cough Last Admin: 10/24/17 21:45 Dose: 100 mg Digoxin (Lanoxin) 0.25 mg PO QOTHERDAY [facility] Last Admin: 10/30/17 10:53 Dose: 0.25 mg Furosemide (Lasix) 20 mg IVP Q12 [facility] Last Admin: 10/27/17 09:41 Dose: 20 mg Guaifenesin (Robitussin) 100 mg PO Q4H PRN PRN Reason: Cough Last Admin: 10/23/17 05:23 Dose: 100 mg Ondansetron HCl (Zofran Inj) 4 mg IVP Q4H PRN PRN Reason: Nausea/Vomiting Phytonadione (Vitamin K Tab) 5 mg PO DAILY [facility] Stop: 11/03/17 12:16 Last Admin: 10/30/17 10:46 Dose: Not Given Tamsulosin HCl (Flomax) 0.4 mg PO DAILY [facility] Last Admin: 10/31/17 09:50 Dose: 0.4 mg - Labs Labs: 10/31/17 06:30 10/31/17 06:30 PT 15.9 SECONDS (9.4-12.5) H 10/30/17 17:21 INR 1.39 (0.93-1.08) H 10/30/17 17:21 APTT 43.1 Seconds (25.1-36.5) H 10/30/17 06:00 - Additional Findings Additional findings: - Constitutional Appears: Non-toxic, No Acute Distress - Head Exam Head Exam: ATRAUMATIC, NORMOCEPHALIC - Eye Exam Eye Exam: Scleral icterus - ENT Exam ENT Exam: Mucous Membranes Moist, Normal Oropharynx - Neck Exam Neck Exam: Normal Inspection - Respiratory Exam Respiratory Exam: Decreased Breath Sounds (bilaterally), NORMAL BREATHING PATTERN - Cardiovascular Exam Cardiovascular Exam: RRR, +S1, +S2 - GI/Abdominal Exam GI & Abdominal Exam: Soft, Normal Bowel Sounds. absent: Guarding, Rebound - Extremities Exam Additional comments: 1/4 pitting edema - Neurological Exam Neurological Exam: Alert, Awake, Oriented x3 - Psychiatric Exam Psychiatric exam: Normal Affect, Normal Mood - Skin Additional comments: jaundice, improving Assessment and Plan - Assessment and Plan (Free Text) Assessment: 66 yo M PMH pancreatic CA, Afib (on Dig), CAD, R tinnitus, DM2, nephrolithiasis who presents after being seen by Dr. Rey and told to come in for his jaundice. s/p thoracentesis 10/18 with subsequent pneumothorax, now s/p chest tube placement draining serious fluid. s/p urgent ERCP attempted 10/18, failed to pass scope beyond duodenum. s/p percutaneous removal of obstructed CBD stent , drainage of CBD, with indwelling drain, draining dark green bilious fluid. s/ p repeat thoracentesis 10/24. Now with ARF likely ATN 2/2 vancomycin nephrotoxicity vs congestion Plan: Hyperbilirubinemia 2/2 obstructed CBD stent with possible cholangitis - s/p percutaneous removal of obstructed CBD stent, drainage of CBD, with indwelling internal/external drain, draining dark green bilious fluid. - Per discussion with IR, drain and be removed, and stent re-placed after discharge, as outpatient - T bili trending down, ALT and AST within normal limits. - Jaundice improving - Merrem complete; discontinued by ID - INR improved today; hold vitamin K and recheck with AM labs - Will discuss with IR to consider re-placement of stent vs keeping drain Pleural effusion and cough - s/p thoracentesis 10/18 and again repeated on 10/24; twice negative cytology and culture; twice protein and LDH indicate transudate - Continue guifenasin and tessalon perles PRN for cough - Lasix held; per nephro - Requested pulm consult; appreciate recs Leukocytosis likely reactive 2/2 cholangitis vs pneumonia - Pt remains afebrile; no abdominal pain - Leukocytosis trending down - Per pulm, patient has atalectasis, but not pneumonia - Bile continues to drain, without purulence, in external drain - Initial and repeat blood and sputum cultures negative - Off antibiotics, per ID; course complete - ID consult requested, appreciate recs MAGALY - Cr stable, remains at 3.0 x3 days; continue to trend, watch for polyuric phase of ATN recovery - Likely 2/2 vancomycin toxicity; intrarenal FEUrea with coarse granular casts in UA - Lasix held per nephro - Renally dose all medications - Requested nephro consult; appreciate recs Hx Afib; hx of SVC thrombus - Cont Digoxin; changed dosing to every other day due to renal failure - Continue eliquis 5mg PO BID, per discussion with hem/onc Hx GERD and gastric obstruction w/ gastric erosions and prior GI bleed s/p emergent gastrojejunostomy and enteroenterostomy in 03/2016 - PTX for GI ppx; held per nephrology - H&H stable Hx Pancreatic cancer - Dr. Rey consulted - Monitor for any changes - No significant abdominal distention at this time Hx CAD s/p stent - ASA 81mg daily BPH - Flomax home dose GI Ppx: Protonix; held per nephrology DVT Ppx: Eliquis Patient was seen, examined and discussed with attending, Dr. Batista <Jessica Batista - Last Filed: 11/01/17 07:22> Objective - Vital Signs/Intake and Output Vital Signs (last 24 hours): Temp Pulse Resp BP Pulse Ox 97.5 F L 80 16 122/71 100 10/31/17 23:41 10/31/17 23:41 10/31/17 23:41 10/31/17 23:41 10/31/17 06:23 Intake and Output: 11/01/17 11/01/17 06:59 18:59 Intake Total 830 Output Total 250 Balance 580 - Medications Medications: Current Medications Acetaminophen (Tylenol 325mg Tab) 650 mg PO Q4 PRN PRN Reason: Pain, Mild (1-3) Last Admin: 10/31/17 20:35 Dose: 650 mg Apixaban (Eliquis) 5 mg PO BID [facility] PRN Reason: Protocol Last Admin: 10/31/17 17:26 Dose: 5 mg Aspirin (Ecotrin) 81 mg PO DAILY [facility] Last Admin: 10/31/17 09:50 Dose: 81 mg Benzonatate (Tessalon Perles) 100 mg PO TID PRN PRN Reason: Cough Last Admin: 10/24/17 21:45 Dose: 100 mg Digoxin (Lanoxin) 0.25 mg PO QOTHERDAY [facility] Last Admin: 10/30/17 10:53 Dose: 0.25 mg Furosemide (Lasix) 20 mg IVP Q12 [facility] Last Admin: 10/27/17 09:41 Dose: 20 mg Guaifenesin (Robitussin) 100 mg PO Q4H PRN PRN Reason: Cough Last Admin: 10/23/17 05:23 Dose: 100 mg Ondansetron HCl (Zofran Inj) 4 mg IVP Q4H PRN PRN Reason: Nausea/Vomiting Phytonadione (Vitamin K Tab) 5 mg PO DAILY [facility] Stop: 11/03/17 12:16 Last Admin: 10/30/17 10:46 Dose: Not Given Tamsulosin HCl (Flomax) 0.4 mg PO DAILY [facility] Last Admin: 10/31/17 09:50 Dose: 0.4 mg - Labs Labs: 11/01/17 06:00 11/01/17 06:00 PT 15.9 SECONDS (9.4-12.5) H 10/30/17 17:21 INR 1.39 (0.93-1.08) H 10/30/17 17:21 APTT 43.1 Seconds (25.1-36.5) H 10/30/17 06:00 Attending/Attestation - Attestation I have personally seen and examined this patient.: Yes I have fully participated in the care of the patient.: Yes I have reviewed all pertinent clinical information, including history, physical exam and plan: Yes Notes (Text): 10/31/17 66 year old male with past medical history of pancreatic cancer, chronic atrial fibrillation, CAD and diabetes who presented with obstructive jaundice with possible obstructed CBD stent, possible cholangitis and pleural effusion. He had initial failed ERCP which was followed by IR percutaneous drainage last week. His LFTs, bilirubin and leukocytosis have improved. He is s/p antibiotics treatment. Nephrology is following for MAGALY. Creatinine has been stable. He also had pleural effusion s/p thoracocentesis x2. He is on eliquis for [id number] of SVC thrombosis and afib. Today he has anemia with hemoglobin of 7.9. Will transfuse 2 units as per hematology. Jessica Batista MD Hospitalist.
--- NOTE | 2017-10-31 23:36 | PN ---
DATE: 10/31/2017 SUBJECTIVE: Patient is in bed, in no acute distress, nontoxic. No fevers and chills. PHYSICAL EXAMINATION: VITAL SIGNS: Temperature is 99, blood pressure is 118/70, respiratory rate 18. HEENT: Unremarkable. NECK: Supple. LUNGS: Decreased breath sounds. HEART: Normal S1 and S2. ABDOMEN: Soft. LABORATORY DATA: Laboratory examination reveals white count of 14,700 and hemoglobin of 7. BUN is 57 and creatinine 3, procalcitonin is 3.77. Urinalysis is noted. Serology is noted. ASSESSMENT AND PLAN: This is a 66-year-old male who was seen early this morning in 369 bed 1 with systemic inflammatory response syndrome, rule out severe sepsis, acute cholangitis in a patient with pancreatic cancer and gastric outlet obstruction, on chemotherapy, pancreatic stent. He received meropenem. Currently, patient is off of antibiotics. note is appreciated. We will follow closely with you. Dr. Seay's note is also appreciated. Again, the patient is off of antibiotics at this point. He has completed his meropenem therapy. We will follow the WBC count. Jonathan Alvarez MD
[2017-11-01 06:31] LABS: BASO # 0.18 K/mm3 (0.0-2.0); BASO % 1.3 % (0.0-3.0); EOS # 2.8 (0.0-0.7); EOS % 20.5 % (1.5-5.0); GRAN # 7.72 (1.4-6.5); GRAN % 57.1 % (50.0-68.0); LYMPH # 1.1 (1.2-3.4); LYMPH % 8.3 % (22.0-35.0); MEAN CELL VOLUME 95.1 fl (80.0-105.0); MEAN CORPUSCULAR HEMOGLOBIN 32.5 pg (25.0-35.0); MEAN CORPUSCULAR HGB CONC 34.1 g/dl (31.0-37.0); MEAN PLATELET VOLUME 10.8 fl (7.0-11.0); MONO # 1.7 (0.1-0.6); MONO % 12.8 % (1.0-6.0); PLATELET COUNT 269 10^3/uL (120.0-450.0); RBC 3.08 10^6/uL (3.5-6.1); RED CELL DISTRIBUTION WIDTH 18.3 % (11.5-14.5); WHITE BLOOD COUNT 13.6 10^3/ul (4.5-11.0)
[2017-11-01 06:49] LABS: ALB/GLOB RATIO 0.6 (1.1-1.8); ALBUMIN 2.1 g/dL (3.0-4.8); CALCIUM 7.9 mg/dL (8.4-10.5)
[2017-11-01 08:45] LABS: BASOPHIL 2 % (0.0-1.0); EOSINOPHIL 19 % (0.0-3.0); LYMPHOCYTE 7 % (22.0-35.0); MONOCYTE 9 % (1.0-6.0); NEUTROPHIL 63 % (50.0-70.0)
[2017-11-01 08:46] LABS: PLATELET ESTIMATE NORMAL (NORMAL)
[2017-11-01 08:47] LABS: ANISOCYTOSIS 1+; HYPOCHROMIA SLIGHT
[2017-11-01] MEDS: Digoxin 250 mcg (0.25 mg) Tab PO SCH (09:09)
[2017-11-01] MEDS: Prostat 15 g packet PO SCH (09:10)
[2017-11-01 11:17] VITALS: BP 131/78; PULSE 77; RESP 19; TEMP 97
[2017-11-01 12:30] VITALS: O2SAT 99
[2017-11-01 12:37] VITALS: PULSE 77
--- NOTE | 2017-11-01 12:48 | CP.PCM.DIS ---
<Nancy Johnson - Last Filed: 11/03/17 12:51> Provider - Provider Date of Admission: 10/17/17 18:40 Attending physician: Jessica Batista MD Time Spent in preparation of Discharge (in minutes): 45 Hospital Course - Lab Results Lab Results: Micro Results 10/24/17 16:50 Pleural Fluid Fungal Culture - Preliminary 10/24/17 16:50 Pleural Fluid Gram Stain - Final 10/24/17 16:50 Pleural Fluid Anaerobic Culture - Final NO ANAEROBES ISOLATED. 10/24/17 16:50 Pleural Fluid Body Fluid Culture - Final No growth. 10/23/17 12:00 Blood-Venous Blood Culture - Final NO GROWTH AFTER 5 DAYS 10/23/17 12:00 Blood-Venous Gram Stain - Final TEST NOT PERFORMED 10/23/17 09:30 Blood-Venous Blood Culture - Final NO GROWTH AFTER 5 DAYS 10/23/17 09:30 Blood-Venous Gram Stain - Final TEST NOT PERFORMED 10/24/17 16:11 Urine Urine Culture - Final No Growth (<1,000 CFU/ML) 10/23/17 16:49 Sputum Gram Stain - Final 10/23/17 16:49 Sputum Sputum Culture - Final Yeast Species 10/24/17 20:21 Stool C. difficile Antigen & Toxin A,B (M - Final 10/19/17 18:53 Pleural Fluid Gram Stain - Final 10/19/17 18:53 Pleural Fluid Body Fluid Culture - Final No growth. 10/18/17 08:00 Blood-Venous Blood Culture - Final NO GROWTH AFTER 5 DAYS 10/18/17 08:00 Blood-Venous Gram Stain - Final TEST NOT PERFORMED 10/18/17 07:00 Blood-Venous Blood Culture - Final NO GROWTH AFTER 5 DAYS 10/18/17 07:00 Blood-Venous Gram Stain - Final TEST NOT PERFORMED Most Recent Lab Values WBC 13.6 10^3/ul (4.5-11.0) H 11/01/17 06:00 RBC 3.08 10^6/uL (3.5-6.1) L 11/01/17 06:00 Hgb 10.0 g/dL (14.0-18.0) L D 11/01/17 06:00 Hct 29.3 % (42.0-52.0) L 11/01/17 06:00 MCV 95.1 fl (80.0-105.0) 11/01/17 06:00 MCH 32.5 pg (25.0-35.0) 11/01/17 06:00 MCHC 34.1 g/dl (31.0-37.0) 11/01/17 06:00 RDW 18.3 % (11.5-14.5) H 11/01/17 06:00 Plt Count 269 10^3/uL (120.0-450.0) 11/01/17 06:00 MPV 10.8 fl (7.0-11.0) 11/01/17 06:00 Gran % 57.1 % (50.0-68.0) 11/01/17 06:00 Lymph % (Auto) 8.3 % (22.0-35.0) L 11/01/17 06:00 [place] % (Auto) 12.8 % (1.0-6.0) H 11/01/17 06:00 Eos % (Auto) 20.5 % (1.5-5.0) H 11/01/17 06:00 Baso % (Auto) 1.3 % (0.0-3.0) 11/01/17 06:00 Gran # 7.72 (1.4-6.5) H 11/01/17 06:00 Lymph # (Auto) 1.1 (1.2-3.4) L 11/01/17 06:00 [place] # (Auto) 1.7 (0.1-0.6) H 11/01/17 06:00 Eos # (Auto) 2.8 (0.0-0.7) H 11/01/17 06:00 Baso # (Auto) 0.18 K/mm3 (0.0-2.0) 11/01/17 06:00 Neutrophils % (Manual) 63 % (50.0-70.0) 11/01/17 06:00 Lymphocytes % (Manual) 7 % (22.0-35.0) L 11/01/17 06:00 Monocytes % (Manual) 9 % (1.0-6.0) H 11/01/17 06:00 Eosinophils % (Manual) 19 % (0.0-3.0) H 11/01/17 06:00 Basophils % (Manual) 2 % (0.0-1.0) H 11/01/17 06:00 Platelet Evaluation Normal (NORMAL) 11/01/17 06:00 Large Platelets Present 10/26/17 06:30 Hypochromasia Slight 11/01/17 06:00 Poikilocytosis (manual Slight 10/23/17 06:00 Anisocytosis (manual) 1+ 11/01/17 06:00 Macrocytosis (manual) Slight 10/26/17 06:30 Target Cells Slight 10/23/17 06:00 Ovalocytes Slight 10/23/17 06:00 Retic Count 1.78 % (0.5-1.5) H 10/25/17 05:30 PT 15.9 SECONDS (9.4-12.5) H 10/30/17 17:21 INR 1.39 (0.93-1.08) H 10/30/17 17:21 APTT 43.1 Seconds (25.1-36.5) H 10/30/17 06:00 Sodium 135 mmol/L (132-148) 11/01/17 06:00 Potassium 4.4 mmol/L (3.6-5.0) 11/01/17 06:00 Chloride 106 mmol/L (98-107) 11/01/17 06:00 Carbon Dioxide 19 mmol/L (21-33) L 11/01/17 06:00 Anion Gap 14 (10-20) 11/01/17 06:00 BUN 59 mg/dL (7-21) H 11/01/17 06:00 Creatinine 2.9 mg/dl (0.8-1.5) H 11/01/17 06:00 Est GFR ( Amer) 26 11/01/17 06:00 Est GFR (Non-Af Amer) 22 11/01/17 06:00 POC Glucose (mg/dL) 148 mg/dL (65-110) H 10/23/17 16:17 Random Glucose 70 mg/dL (70-110) 11/01/17 06:00 Hemoglobin A1c 4.9 % (4.2-6.5) 10/19/17 06:50 Calcium 7.9 mg/dL (8.4-10.5) L 11/01/17 06:00 Total Bilirubin 6.5 mg/dL (0.2-1.3) H 11/01/17 06:00 Direct Bilirubin 12.9 mg/dL (0.0-0.4) H 10/18/17 05:40 AST 35 U/L (17-59) 11/01/17 06:00 ALT 23 U/L (7-56) 11/01/17 06:00 Alkaline Phosphatase 269 U/L (38-126) H 11/01/17 06:00 Lactate Dehydrogenase 943 U/L (333-699) H 10/20/17 06:30 Total Protein 5.5 g/dL (5.8-8.3) L 11/01/17 06:00 Albumin 2.1 g/dL (3.0-4.8) L 11/01/17 06:00 Globulin 3.4 gm/dL 11/01/17 06:00 Albumin/Globulin Ratio 0.6 (1.1-1.8) L 11/01/17 06:00 Amylase 82 U/L (35-125) 10/17/17 18:18 Lipase 17 U/L (23-300) L 10/17/17 18:18 Procalcitonin 3.77 NG/ML (0.19-0.49) H 10/28/17 10:20 Urine Color Yellow (YELLOW) 10/24/17 16:11 Urine Appearance Cloudy (CLEAR) 10/24/17 16:11 Urine pH 6.0 (4.7-8.0) 10/24/17 16:11 Ur Specific [place] 1.020 (1.005-1.035) 10/24/17 16:11 Urine Protein 100 mg/dL (<30 mg/dL) H 10/24/17 16:11 Urine Glucose (UA) Negative mg/dL (NEGATIVE) 10/24/17 16:11 Urine Ketones Trace mg/dL (NEGATIVE) H 10/24/17 16:11 Urine Blood Large (NEGATIVE) H 10/24/17 16:11 Urine Nitrate Negative (NEGATIVE) 10/24/17 16:11 Urine Bilirubin Large (NEGATIVE) H 10/24/17 16:11 Urine Urobilinogen 0.2 E.U./dL (<1 E.U./dL) 10/24/17 16:11 Ur Leukocyte Esterase Trace Valdo/uL (NEGATIVE) H 10/24/17 16:11 Urine RBC 25 - 30 /hpf (0-2) 10/24/17 16:11 Urine WBC 15 - 20 /hpf (0-6) 10/24/17 16:11 Ur Epithelial Cells 1 - 3 /hpf (0-5) 10/24/17 16:11 Urine Bacteria Mod (NEG) 10/24/17 16:11 Coarse Granular Casts Trace /hpf (0-2) H 10/24/17 16:11 Ur Random Creatinine 59 mg/dL 10/25/17 18:02 U Random Total Protein 75 mg/L 10/25/17 18:02 Ur Random Sodium 35 meq/L 10/25/17 18:02 Ur Random Urea Nitrogn 281 mg/dL 10/25/17 18:02 Urine Microalbumin 237.6 mg/L (0.0-16.6) H 10/25/17 18:02 Fluid Source Pleural 10/24/17 16:50 Fluid Appearance Sl cloudy (CLEAR) 10/24/17 16:50 Fluid WBC 138.0 /uL (0.0-300.0) 10/24/17 16:50 Fluid RBC 8236.0 /uL (0.0-0.0) H 10/24/17 16:50 Fluid Tot Cell Count 100 (0-0) H 10/24/17 16:50 Fluid Neutrophils 57.0 % (0-0) H 10/24/17 16:50 Fluid Lymphocytes 5.0 % (0-0) H 10/24/17 16:50 Fld Monocyte/Macrophag 38 % (0-0) H 10/24/17 16:50 Fluid Comment TEST NOT PERFORMED 10/24/17 16:50 Pleural pH 7.0 10/24/17 16:50 Pleural Total Protein <3.0 g/dL 10/24/17 20:50 Pleural LDH 118 U/L 10/24/17 20:50 Pleural Glucose 120 mg/dL 10/25/17 10:00 Stool Occult Blood Positive (NEGATIVE) H 10/31/17 12:10 Vancomycin Trough 34.1 ug/mL (5.0-10.0) H* 10/26/17 08:30 Random Vancomycin 18.8 ug/mL (20.0-40.0) L 10/31/17 06:30 Digoxin 1.5 ng/mL (0.8-2.0) 10/27/17 08:00 Influenza Typ A,B (EIA) Negative for flu a/b (NEGATIVE) 10/25/17 14:15 Blood Type A POSITIVE 10/31/17 14:35 Antibody Screen Negative 10/31/17 14:35 Crossmatch See Detail 10/31/17 14:35 BBK History Checked Patient has bt 10/31/17 14:35 - Hospital Course Hospital Course: 66 yo Male PMH pancreatic CA, Afib (on Digioxin), CAD, R tinnitus, DM2, nephrolithiasis who presents for jaundice found to have obstructive biliary stent. Patient had two thoracentesis during hospital stay, cytology and culture were negative both times, patient was not found to have SBP. Protein and LDH indicated transudate. Patient also developed pneumothorax, and had placement of chest tube per surgical team. Chest tube removed after resolution of pneumothorax. GI was consulted for urgent ERCP for obstructed biliary stent. EGD failed to pass scope beyond duodenum. Patient had percutaneous removal of obstructed CBD stent, drainage of CBD, with indwelling drain. LFTs and jaundice improving after placement of precutaneous stent. Patient completed course of antibiotics during hospital course. Patient developed acute dell failure likely due to ATN from antibiotics. Nephrology was consulted, medications were renally dosed and abx were changed. Patient's kidney functions began to improved. Patient's oncologist was consulted during hospitalist course. He was transfused 2 units pRBC for anemia. Physical therapy recommended [facility]. Patient was instructed to continue renally dosed medications. Patient was also advised to follow up with oncologist for possible permanent stent. Patient was discharged to [facility] for further PT. Discharge Exam - Head Exam Head Exam: ATRAUMATIC, NORMAL INSPECTION, NORMOCEPHALIC - Eye Exam Eye Exam: EOMI, Normal appearance - Respiratory Exam Respiratory Exam: Clear to PA & Lateral, NORMAL BREATHING PATTERN, UNREMARKABLE. absent: Wheezes, Respiratory Distress - Cardiovascular Exam Cardiovascular Exam: REGULAR RHYTHM, +S1, +S2. absent: Tachycardia, Diastolic murmur, Systolic Murmur - GI/Abdominal Exam GI & Abdominal Exam: Normal Bowel Sounds, Soft, Unremarkable. absent: Tenderness - Extremities Exam Extremities exam: normal inspection - Neurological Exam Neurological exam: Alert, Oriented x3 - Skin Skin Exam: Dry, Intact, Normal Color, Warm Discharge Plan - Follow Up Plan Condition: STABLE Disposition: TRANSF TO SNF Instructions: Jaundice, Adult (DC) Additional Instructions: please follow up with primary care doctor, Dr. Zelaya follow up with Dr. Rey follow up with gastroenterology Referrals: Pop Zelaya MD [Staff Provider] - Dalia Rey MD [Staff Provider] - Rg Gomez MD [Staff Provider] - <Jessica Batista - Last Filed: 11/03/17 14:16> Provider - Provider Date of Admission: 10/17/17 18:40 Attending physician: Jessica Batista MD Hospital Course - Lab Results Lab Results: Micro Results 10/24/17 16:50 Pleural Fluid Fungal Culture - Preliminary 10/24/17 16:50 Pleural Fluid Gram Stain - Final 10/24/17 16:50 Pleural Fluid Anaerobic Culture - Final NO ANAEROBES ISOLATED. 10/24/17 16:50 Pleural Fluid Body Fluid Culture - Final No growth. 10/23/17 12:00 Blood-Venous Blood Culture - Final NO GROWTH AFTER 5 DAYS 10/23/17 12:00 Blood-Venous Gram Stain - Final TEST NOT PERFORMED 10/23/17 09:30 Blood-Venous Blood Culture - Final NO GROWTH AFTER 5 DAYS 10/23/17 09:30 Blood-Venous Gram Stain - Final TEST NOT PERFORMED 10/24/17 16:11 Urine Urine Culture - Final No Growth (<1,000 CFU/ML) 10/23/17 16:49 Sputum Gram Stain - Final 10/23/17 16:49 Sputum Sputum Culture - Final Yeast Species 10/24/17 20:21 Stool C. difficile Antigen & Toxin A,B (M - Final 10/19/17 18:53 Pleural Fluid Gram Stain - Final 10/19/17 18:53 Pleural Fluid Body Fluid Culture - Final No growth. 10/18/17 08:00 Blood-Venous Blood Culture - Final NO GROWTH AFTER 5 DAYS 10/18/17 08:00 Blood-Venous Gram Stain - Final TEST NOT PERFORMED 10/18/17 07:00 Blood-Venous Blood Culture - Final NO GROWTH AFTER 5 DAYS 10/18/17 07:00 Blood-Venous Gram Stain - Final TEST NOT PERFORMED Most Recent Lab Values WBC 13.6 10^3/ul (4.5-11.0) H 11/01/17 06:00 RBC 3.08 10^6/uL (3.5-6.1) L 11/01/17 06:00 Hgb 10.0 g/dL (14.0-18.0) L D 11/01/17 06:00 Hct 29.3 % (42.0-52.0) L 11/01/17 06:00 MCV 95.1 fl (80.0-105.0) 11/01/17 06:00 MCH 32.5 pg (25.0-35.0) 11/01/17 06:00 MCHC 34.1 g/dl (31.0-37.0) 11/01/17 06:00 RDW 18.3 % (11.5-14.5) H 11/01/17 06:00 Plt Count 269 10^3/uL (120.0-450.0) 11/01/17 06:00 MPV 10.8 fl (7.0-11.0) 11/01/17 06:00 Gran % 57.1 % (50.0-68.0) 11/01/17 06:00 Lymph % (Auto) 8.3 % (22.0-35.0) L 11/01/17 06:00 [place] % (Auto) 12.8 % (1.0-6.0) H 11/01/17 06:00 Eos % (Auto) 20.5 % (1.5-5.0) H 11/01/17 06:00 Baso % (Auto) 1.3 % (0.0-3.0) 11/01/17 06:00 Gran # 7.72 (1.4-6.5) H 11/01/17 06:00 Lymph # (Auto) 1.1 (1.2-3.4) L 11/01/17 06:00 [place] # (Auto) 1.7 (0.1-0.6) H 11/01/17 06:00 Eos # (Auto) 2.8 (0.0-0.7) H 11/01/17 06:00 Baso # (Auto) 0.18 K/mm3 (0.0-2.0) 11/01/17 06:00 Neutrophils % (Manual) 63 % (50.0-70.0) 11/01/17 06:00 Lymphocytes % (Manual) 7 % (22.0-35.0) L 11/01/17 06:00 Monocytes % (Manual) 9 % (1.0-6.0) H 11/01/17 06:00 Eosinophils % (Manual) 19 % (0.0-3.0) H 11/01/17 06:00 Basophils % (Manual) 2 % (0.0-1.0) H 11/01/17 06:00 Platelet Evaluation Normal (NORMAL) 11/01/17 06:00 Large Platelets Present 10/26/17 06:30 Hypochromasia Slight 11/01/17 06:00 Poikilocytosis (manual Slight 10/23/17 06:00 Anisocytosis (manual) 1+ 11/01/17 06:00 Macrocytosis (manual) Slight 10/26/17 06:30 Target Cells Slight 10/23/17 06:00 Ovalocytes Slight 10/23/17 06:00 Retic Count 1.78 % (0.5-1.5) H 10/25/17 05:30 PT 15.9 SECONDS (9.4-12.5) H 10/30/17 17:21 INR 1.39 (0.93-1.08) H 10/30/17 17:21 APTT 43.1 Seconds (25.1-36.5) H 10/30/17 06:00 Sodium 135 mmol/L (132-148) 11/01/17 06:00 Potassium 4.4 mmol/L (3.6-5.0) 11/01/17 06:00 Chloride 106 mmol/L (98-107) 11/01/17 06:00 Carbon Dioxide 19 mmol/L (21-33) L 11/01/17 06:00 Anion Gap 14 (10-20) 11/01/17 06:00 BUN 59 mg/dL (7-21) H 11/01/17 06:00 Creatinine 2.9 mg/dl (0.8-1.5) H 11/01/17 06:00 Est GFR ( Amer) 26 11/01/17 06:00 Est GFR (Non-Af Amer) 11/01/17 06:00 POC Glucose (mg/dL) 148 mg/dL (65-110) H 10/23/17 16:17 Random Glucose 70 mg/dL (70-110) 11/01/17 06:00 Hemoglobin A1c 4.9 % (4.2-6.5) 10/19/17 06:50 Calcium 7.9 mg/dL (8.4-10.5) L 11/01/17 06:00 Total Bilirubin 6.5 mg/dL (0.2-1.3) H 11/01/17 06:00 Direct Bilirubin 12.9 mg/dL (0.0-0.4) H 10/18/17 05:40 AST 35 U/L (17-59) 11/01/17 06:00 ALT 23 U/L (7-56) 11/01/17 06:00 Alkaline Phosphatase 269 U/L (38-126) H 11/01/17 06:00 Lactate Dehydrogenase 943 U/L (333-699) H 10/20/17 06:30 Total Protein 5.5 g/dL (5.8-8.3) L 11/01/17 06:00 Albumin 2.1 g/dL (3.0-4.8) L 11/01/17 06:00 Globulin 3.4 gm/dL 11/01/17 06:00 Albumin/Globulin Ratio 0.6 (1.1-1.8) L 11/01/17 06:00 Amylase 82 U/L (35-125) 10/17/17 18:18 Lipase 17 U/L (23-300) L 10/17/17 18:18 Procalcitonin 3.77 NG/ML (0.19-0.49) H 10/28/17 10:20 Urine Color Yellow (YELLOW) 10/24/17 16:11 Urine Appearance Cloudy (CLEAR) 10/24/17 16:11 Urine pH 6.0 (4.7-8.0) 10/24/17 16:11 Ur Specific [place] 1.020 (1.005-1.035) 10/24/17 16:11 Urine Protein 100 mg/dL (<30 mg/dL) H 10/24/17 16:11 Urine Glucose (UA) Negative mg/dL (NEGATIVE) 10/24/17 16:11 Urine Ketones Trace mg/dL (NEGATIVE) H 10/24/17 16:11 Urine Blood Large (NEGATIVE) H 10/24/17 16:11 Urine Nitrate Negative (NEGATIVE) 10/24/17 16:11 Urine Bilirubin Large (NEGATIVE) H 10/24/17 16:11 Urine Urobilinogen 0.2 E.U./dL (<1 E.U./dL) 10/24/17 16:11 Ur Leukocyte Esterase Trace Valdo/uL (NEGATIVE) H 10/24/17 16:11 Urine RBC 25 - 30 /hpf (0-2) 10/24/17 16:11 Urine WBC 15 - 20 /hpf (0-6) 10/24/17 16:11 Ur Epithelial Cells 1 - 3 /hpf (0-5) 10/24/17 16:11 Urine Bacteria Mod (NEG) 10/24/17 16:11 Coarse Granular Casts Trace /hpf (0-2) H 10/24/17 16:11 Ur Random Creatinine 59 mg/dL 10/25/17 18:02 U Random Total Protein 75 mg/L 10/25/17 18:02 Ur Random Sodium 35 meq/L 10/25/17 18:02 Ur Random Urea Nitrogn 281 mg/dL 10/25/17 18:02 Urine Microalbumin 237.6 mg/L (0.0-16.6) H 10/25/17 18:02 Fluid Source Pleural 10/24/17 16:50 Fluid Appearance Sl cloudy (CLEAR) 10/24/17 16:50 Fluid WBC 138.0 /uL (0.0-300.0) 10/24/17 16:50 Fluid RBC 8236.0 /uL (0.0-0.0) H 10/24/17 16:50 Fluid Tot Cell Count 100 (0-0) H 10/24/17 16:50 Fluid Neutrophils 57.0 % (0-0) H 10/24/17 16:50 Fluid Lymphocytes 5.0 % (0-0) H 10/24/17 16:50 Fld Monocyte/Macrophag 38 % (0-0) H 10/24/17 16:50 Fluid Comment TEST NOT PERFORMED 10/24/17 16:50 Pleural pH 7.0 10/24/17 16:50 Pleural Total Protein <3.0 g/dL 10/24/17 20:50 Pleural LDH 118 U/L 10/24/17 20:50 Pleural Glucose 120 mg/dL 10/25/17 10:00 Stool Occult Blood Positive (NEGATIVE) H 10/31/17 12:10 Vancomycin Trough 34.1 ug/mL (5.0-10.0) H* 10/26/17 08:30 Random Vancomycin 18.8 ug/mL (20.0-40.0) L 10/31/17 06:30 Digoxin 1.5 ng/mL (0.8-2.0) 10/27/17 08:00 Influenza Typ A,B (EIA) Negative for flu a/b (NEGATIVE) 10/25/17 14:15 Blood Type A POSITIVE 10/31/17 14:35 Antibody Screen Negative 10/31/17 14:35 Crossmatch See Detail 10/31/17 14:35 BBK History Checked Patient has bt 10/31/17 14:35 Attending/Attestation - Attestation I have personally seen and examined this patient.: Yes I have fully participated in the care of the patient.: Yes I have reviewed all pertinent clinical information, including history, physical exam and plan: Yes Notes (Text): 66 year old male with past medical history of pancreatic cancer, chronic atrial fibrillation, CAD and diabetes who presented with obstructive jaundice with possible obstructed CBD stent, possible cholangitis and pleural effusion. He had initial failed ERCP which was followed by IR percutaneous drainage last week. His LFTs, bilirubin and leukocytosis have improved. He has completed course of antibiotics. He was seen by nephrology for MAGALY. His creatinine has been stable for past few days. He also had pleural effusion s/p thoracocentesis x2. He is on eliquis for history of SVC thrombosis and afib. His anemia improved after prbc transfusion. Overall patient's symptoms have improved. He is discharged to [facility] to follow up with his pmd. Follow up with hematology/oncology. Follow up with IR and GI. Follow up with nephrology. Jessica Batista MD Hospitalist.
--- NOTE | 2017-11-02 00:44 | PN ---
DATE: SUBJECTIVE: The patient has no complaints of any chest pain or shortness of breath. PHYSICAL EXAMINATION VITAL SIGNS: Temperature is 97.5, pulse of 85, blood pressure is 118/62, respirations 18. GENERAL: The patient is lying in bed, flat, comfortable. HEENT: No oral lesion. Anicteric sclerae. Moist mucosa. NECK: No JVD, adenopathy, or thyromegaly. CARDIOVASCULAR: S1 and S2, regular. No murmurs, rubs, or gallops. LUNGS: Clear to auscultation bilaterally. No wheeze, rales, or rhonchi. ABDOMEN: Bowel sounds are positive, soft, nontender and nondistended. EXTREMITIES: no cyanosis, clubbing or edema. ASSESSMENT: 1. Acute kidney injury secondary to vancomycin-induced nephropathy. 2. Nephrolithiasis. 3. Sepsis. 4. Pancreatic cancer. 5. Right chest port. 6. Pleural effusion. 7. Coronary artery disease. 8. Obstructed common bile duct stent. 9. Benign prostatic hypertrophy. 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 PLAN: The patient is currently comfortable. The patient's chemistry is improving. White count is 13.6. The patient's creatinine is also continuing to improve. He should get outpatient followup for his creatinine. I did speak to the patient's . Humberto Seay MD
--- NOTE | 2017-11-02 01:55 | PN ---
DATE: 11/01/2017 SUBJECTIVE: Patient is in bed, in no acute distress, nontoxic. PHYSICAL EXAMINATION: VITAL SIGNS: Temperature is 98, blood pressure is 112/70, respiratory rate 16. HEENT: Unremarkable. NECK: Supple. LUNGS: Have decreased breath sounds. HEART: Normal S1 and S2. ABDOMEN: Soft. LABORATORY EXAMINATION: Reveals a white count of 13,600 and cultures are noted. ASSESSMENT AND PLAN: A 66-year-old male who was seen earlier this morning in room 369, bed 1. He states he is feeling better. Admitted with systemic inflammatory response syndrome with severe sepsis, acute cholangitis, pancreatic cancer, gastric outlet, chemotherapy, off of antibiotics, leukocytosis. Overall prognosis is quite poor. Jonathan Alvarez MD
== END 2017-11-01 16:01 | DRG 853 ==
LOC: ED 17:10 → ERH 18:40 → 3RSO 22:51 → 3RNO 10-25 16:44
PROVIDERS: ADMIT Hospitalist; ATTEND Internal Medicine
PROC: 0W993ZX Drainage of Right Pleural Cavity, Percutaneous Approach, Diagnostic (ICD-10-PCS; 2017-10-18)
PROC: 0W9930Z Drainage of Right Pleural Cavity with Drainage Device, Percutaneous Approach (ICD-10-PCS; 2017-10-19)
PROC: 0FPB3DZ Removal of Intraluminal Device from Hepatobiliary Duct, Percutaneous Approach (ICD-10-PCS; principal; 2017-10-22)
PROC: 0F9930Z Drainage of Common Bile Duct with Drainage Device, Percutaneous Approach (ICD-10-PCS; 2017-10-22)
PROC: 0W993ZZ Drainage of Right Pleural Cavity, Percutaneous Approach (ICD-10-PCS; 2017-10-24)
DX: A41.9 Sepsis, unspecified organism (principal); N17.0 Acute kidney failure with tubular necrosis; C25.9 Malignant neoplasm of pancreas, unspecified; K83.0 Cholangitis; C78.7 Secondary malignant neoplasm of liver and intrahepatic bile duct; J93.9 Pneumothorax, unspecified; J90 Pleural effusion, not elsewhere classified; K31.1 Adult hypertrophic pyloric stenosis; E87.2 Acidosis; R64 Cachexia; I42.9 Cardiomyopathy, unspecified; I13.0 Hypertensive heart and chronic kidney disease with heart failure and stage 1 through stage 4 chronic kidney disease, or unspecified chronic kidney disease; I50.20 Unspecified systolic (congestive) heart failure; I48.2 Chronic atrial fibrillation; I25.10 Atherosclerotic heart disease of native coronary artery without angina pectoris; K21.9 Gastro-esophageal reflux disease without esophagitis; N40.0 Benign prostatic hyperplasia without lower urinary tract symptoms; D64.9 Anemia, unspecified; N14.1 Nephropathy induced by other drugs, medicaments and biological substances; T36 Poisoning by, adverse effect of and underdosing of systemic antibiotics; T85.898A Other specified complication of other internal prosthetic devices, implants and grafts, initial encounter; J42 Unspecified chronic bronchitis; R65.20 Severe sepsis without septic shock; N18.9 Chronic kidney disease, unspecified; E11.22 Type 2 diabetes mellitus with diabetic chronic kidney disease; Z79.01 Long term (current) use of anticoagulants; K22.70 Barrett's esophagus without dysplasia; N20.0 Calculus of kidney; Y84.8 Other medical procedures as the cause of abnormal reaction of the patient, or of later complication, without mention of misadventure at the time of the procedure; Z68.24 Body mass index [BMI] 24.0-24.9, adult; Z86.718 Personal history of other venous thrombosis and embolism; Z95.5 Presence of coronary angioplasty implant and graft; Z87.891 Personal history of nicotine dependence

== ENCOUNTER 2017-11-21 15:03 | Inpatient (IN) | payer MEDICARE, OTHER ==
--- NOTE | 2017-11-21 16:00 | ED PDOC ---
Arrival/HPI - General Chief Complaint: Psychiatric Evaluation Time Seen by Provider: 11/21/17 15:15 Historian: Patient - History of Present Illness Narrative History of Present Illness (Text): 11/21/17 15:57 66-year-old male with a history of pancreatic cancer presents today sent in from residential for evaluation of depression. Patient states he was upset yesterday. Patient states the place makes him feel sad. Patient states the food is horrible patient states that he told them that he wanted to kill himself yesterday because he wanted them just to leave him alone. Patient denies suicidal or homicidal ideations. Patient states he feels fine today. Time/Duration: Other (last night) Past Medical History - Provider Review Nursing Documentation Reviewed: Yes - Travel History Have you recently traveled outside [place] w/in the past 3 mons?: No - Past History Past History: No Previous - Infectious Disease Hx of Infectious Diseases: None - Tetanus Immunization Tetanus Immunization: Unknown - Cardiac Hx Pacemaker: No - Pulmonary Hx Respiratory Disorders: Yes (LUNG NODULE.SMOKED CIGARETTES-QUIT 1973. <PK. SMOKED MARIJUANA.LAST 2014) Hx Pneumonia: Yes - Neurological Hx Paralysis: No - HEENT Hx HEENT Disorder: No - Renal Hx Renal Disorder: Yes Hx Kidney Stones: Yes - Endocrine/Metabolic Hx Diabetes Mellitus Type 2: Yes - Hematological/Oncological Hx Blood Transfusions: No Hx Blood Transfusion Reaction: No - Integumentary Hx Dermatological Disorder: Yes - Musculoskeletal/Rheumatological Hx Musculoskeletal Disorders: No - Gastrointestinal Hx Gastrointestinal Disorders: Yes Hx Gastroesophageal Reflux: Yes Other/Comment: esophageal ulcers, esophageal polyp. food bezoar, duodenal gstric outlet obstruction, barretts esophagus, gi bleed, constipation, nausea - Genitourinary/Gynecological Hx Genitourinary Disorders: No Hx Prostate Problems: Yes - Psychiatric Hx Emotional Abuse: No Hx Physical Abuse: No Hx Substance Use: Yes (MARIJUANA. LAST SMOKED LAST 2014) - Past Surgical History Past Surgical History: No Previous - Surgical History Hx Coronary Stent: Yes (03/2013) Other/Comment: ? Stent on Gallbladder. ? Stomach bypass sx - Anesthesia Hx Anesthesia Reactions: No Hx Malignant Hyperthermia: No - Suicidal Assessment Feels Threatened In Home Enviroment: No Family/Social History - Physician Review Nursing Documentation Reviewed: Yes Family/Social History: Unknown Family HX Smoking Status: Former Smoker Hx Alcohol Use: Yes (OCCASIONAL DRINKS) Hx Substance Use: Yes (MARIJUANA. LAST SMOKED LAST 2014) Hx Substance Use Treatment: No Allergies/Home Meds Allergies/Adverse Reactions: Allergies iv tape Allergy (Mild, Uncoded 04/12/17 16:29) RASH Home Medications: Home Meds Medication Instructions Recorded Confirmed Furosemide [Lasix] 60 mg PO DAILY 10/17/17 10/17/17 Pantoprazole [Protonix EC Tab] 40 mg PO ACB PRN 10/17/17 10/17/17 Review of Systems - Review of Systems Constitutional: absent: Fatigue, Fevers Respiratory: absent: SOB, Cough Cardiovascular: absent: Chest Pain, Palpitations Gastrointestinal: absent: Abdominal Pain, Nausea, Vomiting Genitourinary Male: absent: Dysuria, Frequency, Hematuria Musculoskeletal: absent: Arthralgias, Back Pain, Neck Pain Neurological: absent: Headache, Dizziness Psychiatric: Depression. absent: Anxiety, Suicidal Ideation Physical Exam Vital Signs Reviewed: Yes Vital Signs Temp Pulse Resp BP Pulse Ox 11/21/17 19:24 100 H 18 104/67 100 11/21/17 15:27 97.5 F L 96 H 19 111/65 100 Temperature: Afebrile Blood Pressure: Normal Pulse: Regular Respiratory Rate: Normal Appearance: Positive for: Well-Appearing, Non-Toxic, Comfortable, Cachectic Pain Distress: None Mental Status: Positive for: Alert and Oriented X 3 - Systems Exam Head: Present: Atraumatic Conjunctiva: Present: Icteric Mouth: Present: Moist Mucous Membranes Neck: Present: Normal Range of Motion Respiratory/Chest: Present: Clear to Auscultation, Good Air Exchange. No: Respiratory Distress, Accessory Muscle Use Cardiovascular: Present: Regular Rate and Rhythm, Normal S1, S2. No: Murmurs Abdomen: Present: Ostomy Tubes. No: Tenderness, Rebound, Guarding Back: Present: Normal Inspection. No: Midline Tenderness, Paraspinal Tenderness Upper Extremity: Present: Normal ROM, NORMAL PULSES, Tenderness (right hand; there is a bluish discoloration to the distal aspect of the right 2nd finger; minimally tender.), Capillary Refill < 2s. No: Deformity Lower Extremity: Present: Swelling. No: Tenderness Neurological: Present: GCS=15 Skin: Present: Warm, Dry, Other (jaundice) Psychiatric: Present: Alert, Oriented x 3 Medical Decision Making ED Course and Treatment: 11/21/17 16:07 Patient is nontoxic well-appearing in no distress vital signs are stable. pt was placed on 1;1; pt states he had SI yesterday, but denies today. CBC Wbc; 13 trending downward. CMP BUN 70 cr; 3.2 Tylenol WNL Salicylate WNL Alcohol level WNL Urine drug screen wnl UA; wnl cxr: + b/l pleural effusions ekg atrial fibrillation at 10 7 bpm left axis deviation no ST elevations pt with chronic discoloration to right 2nd finger at distal tip; unchanged since apr 2017 (per patient) ct chest; FINDINGS: LUNGS: No pulmonary infiltrate. Minimal bilateral lower lobe compressive atelectasis. MEDIASTINUM: Unremarkable thoracic aorta. No aneurysm. Mild cardiomegaly. Coronary arterial calcification. No pericardial effusion. Main pulmonary artery unremarkable. No vascular congestion. No lymphadenopathy. PLEURA: Moderate right pleural effusion and small left pleural effusion. No pneumothorax. BONES: No fracture. No destructive lesion. UPPER ABDOMEN: Ascites. Large left renal calculus only partially included in this examination. Percutaneous drainage catheter extending through left lobe of liver. OTHER FINDINGS: None. IMPRESSION: No pulmonary infiltrate. Bilateral pleural effusion, right greater than left with minimal bilateral lower lobe compressive atelectasis. Ascites. Left renal calculus. case discussed with dr. lugo; accepts admission; pt with metastatic pancreatic cancer with renal insufficiency, hyponatremia and will require medical admission with psychiatric consult. all aspects of this case were discussed the attending of record. Impression; prostatic pancreatic cancer, renal insufficiency, hyponatremia admit remote tele. - Lab Interpretations Lab Results: 11/21/17 16:14 11/21/17 16:14 Lab Results 11/21/17 17:50: pO2 39, VBG pH 7.27 L, VBG pCO2 44.0, VBG HCO3 20.2 L, VBG Total CO2 21.6 L, VBG O2 Sat (Calc) 74.4 H, VBG Base Excess -6.6 L, VBG Potassium 4.6, Glucose 119 H, Lactate 1.4, FiO2 21.0, Sodium 130.0 L, Chloride 98.0, Venous Blood Potassium 4.6 11/21/17 17:50: Urine Opiates Screen Negative, Urine Methadone Screen Negative, Ur Barbiturates Screen Negative, Ur Phencyclidine Scrn Negative, Ur Amphetamines Screen Negative, U Benzodiazepines Scrn Negative, U Oth Cocaine Metabols Negative, U Cannabinoids Screen Negative 11/21/17 17:33: Digoxin 1.0 11/21/17 17:33: Urine Color Yellow, Urine Appearance Sl cloudy, Urine pH 5.5, Ur Specific [place] 1.025, Urine Protein Trace H, Urine Glucose (UA) Negative, Urine Ketones Negative, Urine Blood Large H, Urine Nitrate Negative, Urine Bilirubin Negative, Urine Urobilinogen 0.2, Ur Leukocyte Esterase Small H, Urine RBC Tntc, Urine WBC 10 - 15, Ur Epithelial Cells 6 - 8, Urine Bacteria Mod 11/21/17 16:14: PT 19.7 H, INR 1.71 H, APTT 40.9 H 11/21/17 16:14: Alcohol, Quantitative < 10 11/21/17 16:14: Salicylates < 1 L, Acetaminophen < 10.0 L 11/21/17 16:14: Sodium 130 L, Potassium 5.2 H, Chloride 99, Carbon Dioxide 19 L , Anion Gap 17, BUN 70 H, Creatinine 3.2 H, Est GFR ( Amer) 24, Est GFR ( Non-Af Amer) 19, Random Glucose 112 H, Calcium 7.4 L, Total Bilirubin 2.7 H, AST 16 L D, ALT 20, Alkaline Phosphatase 127 H D, Total Protein 7.0, Albumin 2.9 L, Globulin 4.1, Albumin/Globulin Ratio 0.7 L 11/21/17 16:14: WBC 13.0 H, RBC 3.59, Hgb 11.4 L, Hct 32.8 L, MCV 91.4 D, MCH 31.8, MCHC 34.8, RDW 14.8 H, Plt Count 308, MPV 8.8, Gran % 79.4 H, Lymph % ( Auto) 7.5 L, [place] % (Auto) 11.4 H, Eos % (Auto) 1.5, Baso % (Auto) 0.2, Gran # 10.35 H, Lymph # (Auto) 1.0 L, [place] # (Auto) 1.5 H, Eos # (Auto) 0.2, Baso # ( Auto) 0.03 - RAD Interpretation Radiology Orders: 11/21/17 15:33 CHEST PORTABLE [RAD] Stat 11/21/17 16:48 CHEST W/O CONTRAST [CT] Stat - Medication Orders Current Medication Orders: Sodium Chloride (Sodium Chloride 0.9%) 500 mls @ 999 mls/hr IV .Q31M STA Stop: 11/21/17 20:13 Disposition/Present on Arrival - Present on Arrival Any Indicators Present on Arrival: No History of DVT/PE: No History of Uncontrolled Diabetes: No Urinary Catheter: No History of Decub. Ulcer: No History Surgical Site Infection Following: None - Disposition Have Diagnosis and Disposition been Completed?: Yes Diagnosis: Jaundice, Pleural effusion, Pancreatic cancer, Leukocytosis Disposition: HOSPITALIZED Disposition Time: 19:58 Patient Plan: Admission Condition: FAIR
[2017-11-21 16:20] LABS: BASO # 0.03 K/mm3 (0.0-2.0); BASO % 0.2 % (0.0-3.0); EOS # 0.2 (0.0-0.7); EOS % 1.5 % (1.5-5.0); GRAN # 10.35 (1.4-6.5); GRAN % 79.4 % (50.0-68.0); HEMOGLOBIN 11.4 g/dL (14.0-18.0); LYMPH % 7.5 % (22.0-35.0); MEAN CELL VOLUME 91.4 fl (80.0-105.0); MEAN CORPUSCULAR HEMOGLOBIN 31.8 pg (25.0-35.0); MEAN CORPUSCULAR HGB CONC 34.8 g/dl (31.0-37.0); MEAN PLATELET VOLUME 8.8 fl (7.0-11.0); MONO # 1.5 (0.1-0.6); MONO % 11.4 % (1.0-6.0); RBC 3.59 10^6/uL (3.5-6.1); RED CELL DISTRIBUTION WIDTH 14.8 % (11.5-14.5)
[2017-11-21 16:28] LABS: INR 1.71 (0.93-1.08); PARTIAL THROMBOPLASTIN TIME 40.9 Seconds (25.1-36.5); PROTHROMBIN TIME 19.7 SECONDS (9.4-12.5)
[2017-11-21 16:34] LABS: ALB/GLOB RATIO 0.7 (1.1-1.8); ALBUMIN 2.9 g/dL (3.0-4.8); CALCIUM 7.4 mg/dL (8.4-10.5)
--- NOTE | 2017-11-21 16:34 | RAD ---
HISTORY: Psychiatric evaluation COMPARISON: Comparison chest dated 10/24/2017. Comparison also made with CT scan chest abdomen pelvis 10/24/2017. FINDINGS: Re- demonstrated is a right IJ MediPort with tip in the SVC. LUNGS: Right lower lobe opacity, the appearance of which most likely represents small residual effusion which has increased in size compared the prior exam. Suspect residual right atelectasis. Previously noted large left-sided effusion and minor left basilar atelectasis markedly improved as well Basilar atelectasis. Minor of left basilar atelectasis PLEURA: As above. No pneumothorax apparent. CARDIOVASCULAR: Cardiac silhouette stable. . OSSEOUS STRUCTURES: No significant abnormalities. VISUALIZED UPPER ABDOMEN: Radiopaque catheter overlying the right upper quadrant the abdomen most likely represents previously noted intra biliary drainage catheter. OTHER FINDINGS: None. IMPRESSION: There is residual right-sided effusion and minor right basilar atelectasis. Markedly decrease size left effusion and minor left basilar atelectasis
[2017-11-21 16:35] LABS: ACETAMINOPHEN < 10.0 ug/ml (10.0-20.0); SALICYLATE < 1 mg/dL (2.0-20.0)
[2017-11-21 18:01] LABS: PH,URINE 5.5 (4.7-8.0); URINE BILIRUBIN NEGATIVE (NEGATIVE); URINE BLOOD LARGE (NEGATIVE); URINE GLUCOSE (UA) NEGATIVE (NEGATIVE); URINE LEUKOCYTE ESTERASE SMALL Leu/uL (NEGATIVE); URINE PROTEIN TRACE mg/dL (<30 mg/dL); URINE UROBILINOGEN 0.2 E.U./dL (<1 E.U./dL)
[2017-11-21 18:02] LABS: URINE APPEARANCE SL CLOUDY (CLEAR); URINE COLOR YELLOW (YELLOW)
[2017-11-21 18:05] LABS: VENOUS BLOOD GAS BASE EXCESS -6.6 mmol/L (0.0-2.0); VENOUS BLOOD GAS PO2 39 mm/Hg (30-55); VENOUS BLOOD PH 7.27 (7.32-7.43)
[2017-11-21 18:12] LABS: URINE RBC TNTC /hpf (0-2)
[2017-11-21 18:13] LABS: URINE BACTERIA MOD (NEG)
[2017-11-21 18:34] LABS: BARBITURATES, UR NEGATIVE (NEGATIVE); BENZODIAZEPINES, UR NEGATIVE (NEGATIVE); OPIATES, UR NEGATIVE (NEGATIVE); PHENCYCLIDINE, UR NEGATIVE (NEGATIVE)
--- NOTE | 2017-11-21 18:52 | CT ---
PROCEDURE: CT Chest without contrast HISTORY: cough/ abnormal cxr COMPARISON: 10/24/2017 TECHNIQUE: Contiguous axial images were obtained through the chest without intravenous contrast enhancement. Sagittal and coronal reconstructions were performed. Radiation dose (DLP): 504.93 mGy-cm. This CT exam was performed using one or more of the following dose reduction techniques: Automated exposure control, adjustment of the mA and/or kV according to patient size, and/or use of iterative reconstruction technique. FINDINGS: LUNGS: No pulmonary infiltrate. Minimal bilateral lower lobe compressive atelectasis. MEDIASTINUM: Unremarkable thoracic aorta. No aneurysm. Mild cardiomegaly. Coronary arterial calcification. No pericardial effusion. Main pulmonary artery unremarkable. No vascular congestion. No lymphadenopathy. PLEURA: Moderate right pleural effusion and small left pleural effusion. No pneumothorax. BONES: No fracture. No destructive lesion. UPPER ABDOMEN: Ascites. Large left renal calculus only partially included in this examination. Percutaneous drainage catheter extending through left lobe of liver. OTHER FINDINGS: None. IMPRESSION: No pulmonary infiltrate. Bilateral pleural effusion, right greater than left with minimal bilateral lower lobe compressive atelectasis. Ascites. Left renal calculus.
[2017-11-21] MEDS ORDERED: Sodium Chloride 0.9% 500 ML IV STA (19:43)
[2017-11-21] MEDS ORDERED: Sod Polystyrene Sulf 15 gm/60 ml Susp PO STA (19:58)
[2017-11-21] MEDS ORDERED: Pantoprazole 40 mg EC Tab PO PRN (20:44)
[2017-11-21] MEDS: Sodium Chloride 0.9% 1,000 ML IV SCH (21:37)
--- NOTE | 2017-11-21 22:05 | CARD ---
APPROVED REPORT EKG Measurement Heart [id number] <Conclusion> Atrial fibrillation with rapid ventricular response Left axis deviation Low voltage QRS Inferior infarct, age undetermined Cannot rule out Anterior infarct, age undetermined ST & T wave abnormality, consider lateral ischemia or digitalis effect Abnormal ECG
--- NOTE | 2017-11-21 22:20 | CP.PCM.HP ---
<Malachi Wilson - Last Filed: 11/21/17 22:06> History of Present Illness - History of Present Illness History of Present Illness: Medicine H&P: Dr. Adonis Verdugo Chief Complaint: Sad HPI: 66yo M with PMH pancreatic CA (on chemo, s/p gastrojejunostomy due to gastric outlet obstruction by Dr. Dsouza, and pancreatic stent placement by Dr. Dorantes, not a surgical candidate for pancreatic surgery), Afib (on Dig), CAD s/p stent (by Dr. Yoder), R tinnitus, DM2 and nephrolithiasis who presents because he is sad at the prison he is staying at. Patient was recently here for jaundice 2/2 obstructed stent and MAGALY and was discharged to [facility] after IR percutaneous drainage and his LFTs, bilirubin and leukocytosis improved. Patient denies any other complaints at this time and denies any changes in urination, any abdominal pain, and any fevers/chills, nausea, vomiting, or diarrhea. ROS: 12 point ROS obtained and negative except as per HPI PMH: Pancreatic CA (on chemo, s/p gastrojejunostomy due to gastric outlet obstruction by Dr. Dsouza, and pancreatic stent placement by Dr. Dorantes, not a surgical candidate for pancreatic surgery), Afib (on Dig), CAD s/p stent (by Dr. Yoder), R tinnitus, DM2 ( states has improved since he lost weight with his cancer) and nephrolithiasis PSH: Gastrojejunostomy, pancreatic stent, cardiac stent Meds: As per MAR Allergies: Tape on IV SHx: Former smoker, ETOH and marijuana user (many years ago) Present on Admission - Present on Admission Any Indicators Present on Admission: No Past Patient History - Infectious Disease Hx of Infectious Diseases: None - Tetanus Immunizations Tetanus Immunization: Unknown - Past Medical History & Family History Past Medical History?: Yes - Past Social History Smoking Status: Former Smoker - CARDIAC Hx Pacemaker: No - PULMONARY Hx Respiratory Disorders: Yes (LUNG NODULE.SMOKED CIGARETTES-QUIT 1973. <PK. SMOKED MARIJUANA.LAST 2014) Hx Pneumonia: Yes - NEUROLOGICAL Hx Paralysis: No - HEENT Hx HEENT Problems: No - RENAL Hx Chronic Kidney Disease: Yes Hx Kidney Stones: Yes - ENDOCRINE/METABOLIC Hx Diabetes Mellitus Type 2: Yes - HEMATOLOGICAL/ONCOLOGICAL Hx Blood Transfusions: No Hx Blood Transfusion Reaction: No - INTEGUMENTARY Hx Dermatological Problems: Yes - MUSCULOSKELETAL/RHEUMATOLOGICAL Hx Musculoskeletal Disorders: No - GASTROINTESTINAL Hx Gastrointestinal Disorders: Yes Hx Gastroesophageal Reflux: Yes Other/Comment: esophageal ulcers, esophageal polyp. food bezoar, duodenal gstric outlet obstruction, barretts esophagus, gi bleed, constipation, nausea - GENITOURINARY/GYNECOLOGICAL Hx Genitourinary Disorders: No Hx Prostate Problems: Yes - PSYCHIATRIC Hx Emotional Abuse: No Hx Physical Abuse: No Hx Substance Use: Yes (MARIJUANA. LAST SMOKED LAST YR 2014) - SURGICAL HISTORY Hx Coronary Stent: Yes (03/2013) Other/Comment: ? Stent on Gallbladder. ? Stomach bypass sx - ANESTHESIA Hx Anesthesia Reactions: No Hx Malignant Hyperthermia: No Meds Allergies/Adverse Reactions: Allergies Allergy/AdvReac Type Severity Reaction Status Date / Time iv tape Allergy Mild RASH Uncoded 04/12/17 16:29 Physical Exam - Constitutional Appears: Non-toxic, Cachectic, Chronically Ill Additional comments: Jaundiced - Head Exam Head Exam: ATRAUMATIC, NORMAL INSPECTION, NORMOCEPHALIC - Eye Exam Eye Exam: EOMI, Normal appearance, PERRL Pupil Exam: NORMAL ACCOMODATION, PERRL - ENT Exam ENT Exam: Mucous Membranes Moist, Normal Exam - Neck Exam Neck exam: Positive for: Normal Inspection - Respiratory Exam Respiratory Exam: Clear to Auscultation Bilateral, NORMAL BREATHING PATTERN - Cardiovascular Exam Cardiovascular Exam: REGULAR RHYTHM - GI/Abdominal Exam GI & Abdominal Exam: Normal Bowel Sounds, Soft. absent: Tenderness - Extremities Exam Extremities exam: Positive for: normal inspection - Back Exam Back exam: NORMAL INSPECTION - Neurological Exam Neurological exam: Alert, CN II-XII Intact, Normal Gait, Oriented x3, Reflexes Normal - Psychiatric Exam Psychiatric exam: Normal Affect, Normal Mood - Skin Skin Exam: Dry, Intact, Normal Color, Warm Results - Vital Signs Recent Vital Signs: Last Vital Signs Temp 97.5 F L 11/21/17 15:27 Pulse 100 H 11/21/17 19:24 Resp 18 11/21/17 19:24 BP 104/67 11/21/17 19:24 Pulse Ox 100 11/21/17 19:24 - Labs Result Diagrams: 11/21/17 16:14 11/21/17 16:14 Assessment & Plan - Assessment and Plan (Free Text) Assessment: 66 y/o M PMH pancreatic CA, Afib (on Dig), CAD, R tinnitus, DM2, nephrolithiasis presenting with depression from prison. Patient was found to have MAGALY on admission as well as hyponatremia, hyperkalemia, and leukocytosis. Patient also had a UTI. Patient has two SIRS criteria (tachycardia with leukocytosis) as well as source of infection (UTI), so is technically septic. Plan Sepsis, Possibly 2/2 UTI - Lactic acid ordered - Rocephin - Consider ID consult Acute Kidney Injury likely 2/2 Dehydration - Fluids, Hold Lasix UTI - Rocephin Hyponatremia likely 2/2 dehydration vs acute renal failure - Fluids Hyperkalemia likely 2/2 acute renal failure - Kayexalate Hx Pancreatic Ca - Dr. Rey consulted Leukocytosis likely reactive 2/2 chemo - Blood and urine cxs ordered Hypocalcemia - Oscal daily Hx Afib - Cont Digoxin Hx CAD s/p stent - ASA 81mg daily BPH - Flomax home dose GI/DVT Prophylaxis - Protonix/Eliquis <Lilian Verdugo N - Last Filed: 11/23/17 01:18> Results - Vital Signs Recent Vital Signs: Last Vital Signs Temp 97.6 F 11/22/17 00:13 Pulse 99 H 11/22/17 04:58 Resp 20 11/22/17 00:13 BP 111/74 11/22/17 00:13 Pulse Ox 98 11/21/17 22:20 - Labs Result Diagrams: 11/22/17 06:30 11/22/17 06:30 Labs: Laboratory Results - last 24 hr 11/21/17 21:59 Potassium 4.6
[2017-11-22 01:16] VITALS: BMI 17.2
[2017-11-22 06:54] LABS: BASO # 0.03 K/mm3 (0.0-2.0); BASO % 0.3 % (0.0-3.0); EOS # 0.2 (0.0-0.7); EOS % 1.6 % (1.5-5.0); GRAN # 9.08 (1.4-6.5); HEMOGLOBIN 9.7 g/dL (14.0-18.0); LYMPH # 0.9 (1.2-3.4); LYMPH % 8.1 % (22.0-35.0); MEAN CELL VOLUME 90.7 fl (80.0-105.0); MEAN CORPUSCULAR HEMOGLOBIN 31.1 pg (25.0-35.0); MEAN CORPUSCULAR HGB CONC 34.3 g/dl (31.0-37.0); MEAN PLATELET VOLUME 8.9 fl (7.0-11.0); MONO # 1.4 (0.1-0.6); RBC 3.12 10^6/uL (3.5-6.1); RED CELL DISTRIBUTION WIDTH 14.8 % (11.5-14.5); WHITE BLOOD COUNT 11.6 10^3/ul (4.5-11.0)
[2017-11-22 07:32] LABS: ALB/GLOB RATIO 0.6 (1.1-1.8); ALBUMIN 2.3 g/dL (3.0-4.8); CALCIUM 7.1 mg/dL (8.4-10.5)
--- NOTE | 2017-11-22 07:38 | CP.PCM.PN ---
Subjective - Date & Time of Evaluation Date of Evaluation: 11/22/17 Time of Evaluation: 07:38 - Subjective Subjective: Internal Medicine Progress Note: Patient seen and examined at bedside. Objective - Vital Signs/Intake and Output Vital Signs (last 24 hours): Temp Pulse Resp BP Pulse Ox 97.4 F L 102 H 21 108/76 98 11/22/17 06:00 11/22/17 06:00 11/22/17 06:00 11/22/17 06:00 11/22/17 06:00 Intake and Output: 11/22/17 11/22/17 06:59 18:59 Intake Total 846 Output Total 315 Balance 531 - Medications Medications: Current Medications Apixaban (Eliquis) 5 mg PO BID CHRISTOPHER PRN Reason: Protocol Aspirin (Ecotrin) 81 mg PO DAILY CHRISTOPHER Digoxin (Lanoxin) 0.25 mg PO QOTHERDAY@1400 CHRISTOPHER Ceftriaxone Sodium (Rocephin 1 Gram Ivpb) 1 gm in 100 mls @ 100 mls/hr IVPB DAILY CHRISTOPHER PRN Reason: Protocol Sodium Chloride (Sodium Chloride 0.9%) 1,000 mls @ 100 mls/hr IV .Q10H CHRISTOPHER Last Admin: 11/21/17 21:37 Dose: 100 mls/hr Non-Formulary Medication (Lactose-Reduced Food [Ensure Enlive]) 237 ml PO TID CHRISTOPHER Pantoprazole Sodium (Protonix Ec Tab) 40 mg PO ACB PRN PRN Reason: reflux Last Admin: 11/22/17 06:08 Dose: 40 mg Tamsulosin HCl (Flomax) 0.4 mg PO DAILY CHRISTOPHER - Labs Labs: 11/22/17 06:30 11/22/17 06:30 PT 19.7 SECONDS (9.4-12.5) H 11/21/17 16:14 INR 1.71 (0.93-1.08) H 11/21/17 16:14 APTT 40.9 Seconds (25.1-36.5) H 11/21/17 16:14
[2017-11-22] MEDS: cefTRIAXone 1 gm 1 GM/100 ML BAG IVPB SCH (09:31)
[2017-11-22] MEDS: Sodium Chloride 0.9% 1,000 ML IV SCH ×3 (09:32→21:06)
[2017-11-22] MEDS ORDERED: LACTOSE REDUCED FOOD PO SCH (10:00)
[2017-11-22] MEDS: Insulin Reg-LOW-Coverage SC SCH ×2 (16:28→21:51)
[2017-11-23 01:59] LABS: URINE BILIRUBIN NEGATIVE (NEGATIVE); URINE BLOOD LARGE (NEGATIVE); URINE GLUCOSE (UA) NEGATIVE (NEGATIVE); URINE LEUKOCYTE ESTERASE SMALL Leu/uL (NEGATIVE); URINE PROTEIN TRACE mg/dL (<30 mg/dL); URINE UROBILINOGEN 0.2 E.U./dL (<1 E.U./dL)
[2017-11-23 02:08] LABS: URINE APPEARANCE SL CLOUDY (CLEAR); URINE COLOR YELLOW (YELLOW)
[2017-11-23 02:22] LABS: URINE BACTERIA SMALL (NEG); URINE EPITHELIAL CELLS 0 - 2 /hpf (0-5); URINE RBC 25 - 30 /hpf (0-2)
[2017-11-23] MEDS: Sodium Chloride 0.9% 1,000 ML IV SCH ×2 (02:49→08:29)
[2017-11-23 02:59] LABS: CREATININE,RANDOM URINE 63 mg/dL; TOTAL PROTEIN,RANDOM URINE 28 mg/L
--- NOTE | 2017-11-23 03:20 | CON ---
DATE: HISTORY OF PRESENT ILLNESS: In short, the patient is a 66-year-old male with not known previous psychiatric history, multiple medical issues including pancreatic cancer. Patient was sent from the snf for evaluation of possible depression and possible suicidal ideation. Patient reported that he wanted to end up his life because he did not much like that facility. In emergency room, patient denied thoughts of harming himself or others. Patient was found to have urinary tract infection and needed to have IV antibiotics that is why he was admitted on the medical site. Psych consult was called for evaluation of mood symptoms as well as possible suicidal ideation as he reported such in the snf. Patient was seen and examined. Patient presented to be pleasant, cooperative, great sense of humor and he was appropriate with his humor. Patient reported that he does not like [facility]. Patient reported that he was feeling very depressed there. Patient reported that he was feeling dying in there. Patient reported that he wanted to end up his life in order to escape from that facility. During the evaluation, patient adamantly denied being depressed, denied thoughts of harming himself or others. Patient denied hearing voices, denied seeing things. Patient reported to have fair sleep and appetite. Patient was able to express his wish to go back to his apartment and he does not want to go to the snf. PAST PSYCHIATRIC HISTORY: Patient denied history of being depressed. Denied history of being admitted to the psychiatric inpatient unit. Patient denied using drugs. Discussed with the nursing staff. As per nursing staff, patient has fair appetite and does not exceeded any aggressive or agitated behavior. As per nurse, patient was consistent with his story and he denied that he wanted to end up his life and repeated himself that he does not want to go to snf and he said that he is suicidal in order to leave the snf. This policy writer typist reviewed vital signs, seems to be stable. LABORATORY DATA: Significant for leukocytosis at 13.0, but it is trending down, today, it is 11.6; hemoglobin and hematocrit 9.7 and 28.3. This policy writer typist reviewed labs. MEDICATIONS: Patient is on Eliquis 5 mg twice a day, aspirin 81 mg daily, ceftriaxone IV, digoxin 0.25 mg daily, Protonix, sodium chloride as well as Flomax. MENTAL STATUS EXAMINATION: As this policy writer typist described above. Patient presented to be alert and oriented, pleasant, cooperative, good sense of humor, good eye contact. Speech was normal rate, tone, quality and quantity. Mood described as "I feel good now." Affect was reactive, mood congruent. Thought process coherent and goal directed. Thought content, patient denied visual, auditory, or tactile hallucinations. Denied paranoid ideation. Patient does not present to be psychotic. Insight and judgment seems to be fair. Impulses are well controlled. Patient was educated about dangerousness of statement that he is suicidal when he is actually not. Patient states that he has no other choices than say such things in order to escape from that place. IMPRESSION: Rule out adjustment disorder. Patient denied being depressed. No signs of depression. Patient denied feeling anxious. Patient has future-oriented plans. Patient wants to go back home. Patient pose no imminent danger to self or others. This policy writer typist would recommend marriage and family social worker evaluation and case management evaluation in order to find out what will be the disposition plan after discharge because patient made it clear that he does not want to go to the snf. Family should be involved. This policy writer typist will sign off. Should you have any questions give me a call back. Thank you very much for letting me participate in the care of your patient. Tammy Kitchen MD
--- NOTE | 2017-11-23 03:32 | PN ---
DATE: SUBJECTIVE: The patient is 66-year-old male. The patient is seen and examined on the bedside, looking comfortable. No nausea, vomiting, or diarrhea. No hematuria or hematochezia. No swelling of the legs. No chest pain. No palpitation. No headache. No dizziness. PHYSICAL EXAMINATION: VITAL SIGNS: Temperature 98.6, blood pressure 102/70, respiratory rate 20. HEENT: Head normocephalic, atraumatic. Eyes: PERRLA. Extraocular muscles intact. Conjunctivae clear. Nose patent. Mucous membranes moist. NECK: Supple. No carotid bruit. No JVD or thyromegaly. CHEST: Bilaterally symmetrical. HEART: S1 and S2 positive. LUNGS: Clear to auscultation. ABDOMEN: Soft. Bowel sounds positive. No organomegaly. EXTREMITIES: No edema. No cyanosis. NEUROLOGICAL: The patient is awake and alert. Moving all 4 extremities. No focal deficits. LABORATORY DATA: White blood cells 11.6, hemoglobin 9.7, hematocrit 28.3, platelets 286. Sodium 132, potassium 4.6, BUN 59, creatinine 2.6, calcium 7.1. MEDICATIONS: Ecotrin, Eliquis, Flomax, Lanoxin, Protonix, Rocephin, NS. ASSESSMENT AND PLAN: Mr. Franky Campuzano is a 66-year-old male with leukocytosis, anemia, renal insufficiency, hypocalcemia, hyperphosphatemia, abnormal liver function test, proteinuria, hematuria, was getting rehab in [facility] with low hemoglobin. History of pancreatic cancer, on chemotherapy, status post gastrojejunostomy due to gastric outlet obstruction. Pancreatic stent placement by Dr. Dorantes. Not a surgical candidate for pancreatic surgery. Atrial fibrillation, on digoxin. Coronary artery disease, status post stenting by Dr. Terrence Yoder. Diabetes mellitus, nephrolithiasis, has jaundice, may be due to obstructive stent and acute kidney injury. Was discharged to subacute rehabilitation after IR percutaneous drainage and his liver function tests, bilirubin, leukocytosis improved. The patient denies any pain. Gastrointestinal and deep venous thrombosis prophylaxis. Repeat labs. Started pureed diet. We will call Dr. Dsouza, consult again. We will follow up. Joy Nix MD MTDD
[2017-11-23 06:28] LABS: BASO # 0.02 K/mm3 (0.0-2.0); BASO % 0.1 % (0.0-3.0); EOS # 0.2 (0.0-0.7); EOS % 1.6 % (1.5-5.0); GRAN # 11.09 (1.4-6.5); GRAN % 80.3 % (50.0-68.0); LYMPH # 0.9 (1.2-3.4); LYMPH % 6.7 % (22.0-35.0); MEAN CELL VOLUME 91.3 fl (80.0-105.0); MEAN CORPUSCULAR HEMOGLOBIN 31.3 pg (25.0-35.0); MEAN CORPUSCULAR HGB CONC 34.2 g/dl (31.0-37.0); MEAN PLATELET VOLUME 8.9 fl (7.0-11.0); MONO # 1.6 (0.1-0.6); MONO % 11.3 % (1.0-6.0); PLATELET COUNT 328 10^3/uL (120.0-450.0); RED CELL DISTRIBUTION WIDTH 14.8 % (11.5-14.5); WHITE BLOOD COUNT 13.8 10^3/ul (4.5-11.0)
[2017-11-23 06:46] LABS: IRON 23 ug/dL (45-180)
[2017-11-23 06:56] LABS: % IRON SATURATION 13 % (20-55); TOTAL IRON BINDING CAPACITY 180 ug/dL (261-462)
[2017-11-23 07:05] LABS: ALB/GLOB RATIO 0.6 (1.1-1.8); ALBUMIN 2.3 g/dL (3.0-4.8); ALT/SGPT 23 U/L (7-56); AST/SGOT 21 U/L (17-59); BLOOD UREA NITROGEN 66 mg/dL (7-21); CALCIUM 7.2 mg/dL (8.4-10.5); GFR AFRICAN-AMERICAN 27; GFR NON-AFRICAN AMERICAN 23; HDL CHOLESTEROL 27 mg/dL (29-60); LDL CHOLESTEROL < 30 mg/dL (0-129); URIC ACID 9.7 mg/dL (3.5-8.5)
[2017-11-23] MEDS: Insulin Reg-LOW-Coverage SC SCH ×4 (08:27→21:35)
[2017-11-23] MEDS: Pantoprazole 40 mg EC Tab PO SCH (08:32)
[2017-11-23] MEDS: cefTRIAXone 1 gm 1 GM/100 ML BAG IVPB SCH (10:07)
[2017-11-23 13:07] LABS: FOLATE 8.1 ng/mL
[2017-11-23] MEDS: Digoxin 250 mcg (0.25 mg) Tab PO SCH (14:25)
--- NOTE | 2017-11-23 20:40 | CP.PCM.PCO ---
Physician Communication Note - Physician Communication Note Physician Communication Note: Nigel Dorantes will change PTHC to Internal Stent 11/26
--- NOTE | 2017-11-24 04:31 | CON ---
DATE: NEPHROLOGY CONSULTATION LOCATION: [facility]. HISTORY OF PRESENT ILLNESS: Patient is a 66-year-old male with past medical history of pancreatic cancer, on chemo; status post gastrojejunostomy due to gastric outlet obstruction and pancreatic stent placement; CHF with severe systolic dysfunction and severe mitral regurgitation; AFib, on Eliquis; CAD, status post stent; diabetes and nephrolithiasis, sent from nursing facility due to reported suicidal ideation, Nephrology being consulted for acute renal failure. Patient was discharged from [facility] late last month after being admitted with occluded biliary stent; during that visit, patient had IR removed stent and placed internal, external biliary drain; hospital course was noted for acute renal failure at that time, which was thought to be due to vancomycin toxicity; patient also has severe leukocytosis for which he was placed on broad-spectrum antibiotics. Patient was discharged to nursing facility with acute renal failure that had not improved, however, renal function was stable; at senior living, patient was continued on diuretics with Lasix 40 mg p.o. every 12 hours; patient's edema has improved significantly per him; he does report that he was not eating well at the facility as he did not like the food; otherwise denied any nausea, vomiting or diarrhea. Patient reports having brown-colored urine that he attributes to being on blood thinner; otherwise, denies any difficulty urinating or any slow urinary stream; no dysuria; denies any lightheadedness on rising from sitting position. PAST MEDICAL HISTORY: As above. SOCIAL HISTORY: Former smoker. FAMILY HISTORY: Mother with ovarian cancer. REVIEW OF SYSTEMS: CONSTITUTIONAL: Decreased appetite. HEENT: Denies any difficulty swallowing, gets rhinorrhea frequently. No sore throat. RESPIRATORY: Intermittent cough, otherwise no shortness of breath. CARDIOVASCULAR: No chest pain or palpitations. GASTROINTESTINAL: As per HPI. GENITOURINARY: As per HPI. SKIN: Denies any pruritus or rashes. NEUROLOGIC: Denies any numbness in feet. PSYCHIATRIC: Reported depression due to being in the nursing facility, not sleeping well. PHYSICAL EXAMINATION: VITAL SIGNS: Blood pressure 103/67, heart rate 73, respirations 20, temperature 98.2, O2 sat 92% on room air. GENERAL: No distress. Conversing coherently in full sentences. HEENT: Moist mucous membranes. No cervical lymphadenopathy. RESPIRATORY: Lungs clear to auscultation bilaterally, although bronchial breath sounds at right base. CARDIOVASCULAR: Heart sounds S1, S2 normal. Irregular rhythm. No murmurs or gallops. GASTROINTESTINAL: Abdomen soft, mildly distended, nontender. GENITOURINARY: No overt bladder distention. EXTREMITIES: Bilateral leg edema extending to lower abdominal wall, however, significantly improved since previous admission. SKIN: Warm. No cyanosis. NEUROLOGIC: No resting tremor. No numbness of feet. PSYCHIATRIC: Normal mood, normal affect. LABORATORY DATA: CBC, WBC 13.8, hemoglobin 10.0, hematocrit 29.2, platelets 328. Chemistry panel: Sodium 134, potassium 4.6, chloride 105, bicarb 17, BUN 66, creatinine 2.8, glucose 71, uric acid 9.7, calcium 7.2, phosphorus 8, albumin 2.3. AST 21, ALT 23, alk phos 96, T bili 2, LDH 413. CK level 27. TSH 20.5. Iron studies: Iron 23, TIBC 180, saturation 13%, ferritin 419. Urine studies: Urine sodium 21, creatinine 63. Chest x-ray directly observed showing significant right pleural effusion. ASSESSMENT AND PLAN: 1. Acute renal failure. Patient with significant loss of renal function with baseline serum creatinine of 0.9, increasing to approximately 3.0 on previous admission and still not yet recovered; on further perusal of records, patient also received intravenous contrast study as part of cholangiogram for patient's biliary stent removal and placement of a new drain around the same time that renal function started to worsen; vancomycin toxicity may have been subsequent to acute kidney injury, but may have also caused some degree of renal dysfunction; patient currently is status post 1 liter of intravenous fluids with mild improvement in renal function; he had been being diuresed aggressively in this state of having anasarca; fractional excretion of sodium calculated at 0.7% is consistent with prerenal etiology. Patient will also having decreased p.o. intake lately and may have been depressed partly because of hypothyroidism. -We will resume gentle intravenous fluids with NS at 75 cc/hr -Continue to hold diuretics. -If no significant improvement in renal function, we can consider renal biopsy but yield is likely low with no significant proteinuria (differential would be some sort of vascular event including cholesterol embolization, for which there is no treatment). 2. Metabolic acidosis, relatively mild, will treat with PO sodium bicarb; 3. Pancreatic cancer, unclear what is the extent of tumor burden; uric acid is elevated, but not enough to cause tumor lysis; no need to alkalinize urine in this regard; 4. Congestive heart failure with severe systolic dysfunction. Patient still with significant peripheral edema but much improved from previous admission; hypoalbuminemia also contributory; also with right pleural effusion, also significantly less than seen on previous admission when he had multiple thoracentesis procedures done; unclear why patient is not on beta blockers for cardiac optimization; recommend to start low-dose Toprol-XL 12.5 mg daily; continue to hold diuretics for now. 5. Leukocytosis, relatively mild. Blood and urine cultures are negative. Patient currently on ceftriaxone. No renal dose adjustment needed. Thank you for this referral. We will be following up closely. Tomas Clark MD JACK
--- NOTE | 2017-11-24 04:52 | PN ---
DATE: The patient is a 66-year-old male. SUBJECTIVE: The patient is seen and examined at the bedside, looking comfortable. No nausea, vomiting or diarrhea. No hematuria or hematochezia. No swelling of the legs. No chest pain. No palpitations. No headache. No dizziness. No fever. No chills. PHYSICAL EXAMINATION: VITAL SIGNS: Temperature 98.6, blood pressure 102/70, respiratory rate 20. HEENT: Head is normocephalic and atraumatic. Eyes; PERRLA. Extraocular muscles are intact. Conjunctivae are clear. Nose is patent. NECK: Supple. No carotid bruit. No JVD or thyromegaly. CHEST: Bilaterally symmetrical. HEART: S1 and S2 positive. LUNGS: Clear to auscultation. ABDOMEN: Soft. Bowel sounds present. No organomegaly. EXTREMITIES: No edema. No cyanosis. NEUROLOGICAL: The patient is awake and alert. Moving all 4 extremities. No focal deficits. LABORATORY DATA: White blood cells 11.6, hemoglobin 9.7, hematocrit 28.3, and platelets noted . Sodium 132, potassium 4.6, BUN 59, and creatinine noted . Calcium 7.9. MEDICATIONS: Ecotrin, Eliquis, Flomax, Lanoxin, Protonix, Rocephin, ASSESSMENT AND PLAN: Mr. Franky Campuzano is a 66 years old male with leukocytosis, anemia, renal insufficiency, hypocalcemia, hyperphosphatemia, abnormal liver function test, proteinuria, hematuria, was getting rehab in [facility], brought to [facility] for low hemoglobin and not feeling very well. The patient has history of pancreatic cancer, on chemotherapy; status post gastrojejunostomy due to gastric outlet obstruction. Pancreatic stent was placed by Dr. Terrence Dorantes. On Sunday he will replace the stent. According to Dr. Dsouza, no more surgery. Gastrointestinal and deep venous thrombosis prophylaxis. Repeat labs. We will follow up. Joy Nix MD MTDD
[2017-11-24 06:15] LABS: BASO # 0.02 K/mm3 (0.0-2.0); BASO % 0.2 % (0.0-3.0); EOS # 0.2 (0.0-0.7); EOS % 1.7 % (1.5-5.0); GRAN # 9.94 (1.4-6.5); GRAN % 78.6 % (50.0-68.0); HEMOGLOBIN 9.6 g/dL (14.0-18.0); LYMPH # 1.1 (1.2-3.4); LYMPH % 8.9 % (22.0-35.0); MEAN CELL VOLUME 91.8 fl (80.0-105.0); MEAN CORPUSCULAR HEMOGLOBIN 31.4 pg (25.0-35.0); MEAN CORPUSCULAR HGB CONC 34.2 g/dl (31.0-37.0); MEAN PLATELET VOLUME 8.7 fl (7.0-11.0); MONO # 1.3 (0.1-0.6); MONO % 10.6 % (1.0-6.0); RBC 3.06 10^6/uL (3.5-6.1); RED CELL DISTRIBUTION WIDTH 14.9 % (11.5-14.5); WHITE BLOOD COUNT 12.6 10^3/ul (4.5-11.0)
[2017-11-24 06:28] LABS: ALB/GLOB RATIO 0.6 (1.1-1.8); ALBUMIN 2.2 g/dL (3.0-4.8); CALCIUM 7.2 mg/dL (8.4-10.5)
--- NOTE | 2017-11-24 07:28 | CP.PCM.PCO ---
Physician Communication Note - Physician Communication Note Physician Communication Note: Holding Eliquis for Procedure Sunday
[2017-11-24] MEDS ORDERED: Sodium Chloride 0.9% 1,000 ML IV SCH (07:45)
[2017-11-24] MEDS: Pantoprazole 40 mg EC Tab PO SCH (08:19)
[2017-11-24] MEDS: Insulin Reg-LOW-Coverage SC SCH ×4 (08:19→22:34)
[2017-11-24] MEDS: cefTRIAXone 1 gm 1 GM/100 ML BAG IVPB SCH ×2 (10:11→11:58)
[2017-11-24] MEDS ORDERED: Metoprolol Succinate 25 mg XL Tab PO SCH (12:00)
[2017-11-24 12:43] LABS: FREE T4 1.43 ng/dL (0.78-2.19)
--- NOTE | 2017-11-24 12:45 | CP.PCM.PN ---
Subjective - Date & Time of Evaluation Date of Evaluation: 11/24/17 Time of Evaluation: 15:00 - Subjective Subjective: Patient in a bad mood today; otherwise no complaints; Objective - Vital Signs/Intake and Output Vital Signs (last 24 hours): Temp Pulse Resp BP Pulse Ox 97.5 F L 93 H 20 104/64 97 11/24/17 07:42 11/24/17 10:00 11/24/17 07:42 11/24/17 07:42 11/24/17 07:42 Intake and Output: 11/24/17 11/24/17 06:59 18:59 Intake Total 360 Output Total 575 Balance -215 - Medications Medications: Current Medications Albumin Human (Albumin Human 25% (12.5 Gm/50 Ml)) 12.5 gm IV Q6H [facility] Stop: 11/25/17 06:01 Apixaban (Eliquis) 5 mg PO BID [facility] PRN Reason: Protocol Last Admin: 11/23/17 17:25 Dose: 5 mg Aspirin (Ecotrin) 81 mg PO DAILY [facility] Last Admin: 11/24/17 10:11 Dose: Not Given Calcium Acetate (Phoslo) 1,334 mg PO WM [facility] Last Admin: 11/24/17 11:58 Dose: 1,334 mg Digoxin (Lanoxin) 0.25 mg PO QOTHERDAY@1400 [facility] Last Admin: 11/23/17 14:25 Dose: 0.25 mg Ceftriaxone Sodium (Rocephin 1 Gram Ivpb) 1 gm in 100 mls @ 100 mls/hr IVPB DAILY [facility] PRN Reason: Protocol Stop: 11/26/17 10:59 Last Admin: 11/24/17 11:58 Dose: 100 mls/hr Sodium Chloride (Sodium Chloride 0.9%) 1,000 mls @ 75 mls/hr IV .[id number] [facility] Stop: 11/25/17 10:24 Last Admin: 11/24/17 08:14 Dose: 75 mls/hr Insulin Human Regular (Humulin R Low) 0 units SC ACHS [facility] PRN Reason: Protocol Last Admin: 11/24/17 11:13 Dose: Not Given Levothyroxine Sodium (Synthroid) 25 mcg PO 0600 [facility] Metoprolol Succinate (Toprol Xl) 12.5 mg PO BRK [facility] Pantoprazole Sodium (Protonix Ec Tab) 40 mg PO ACB [facility] Last Admin: 11/24/17 08:19 Dose: 40 mg Sodium Bicarbonate (Sodium Bicarbonate Tab) 1,300 mg PO TID [facility] Last Admin: 11/24/17 10:17 Dose: Not Given Tamsulosin HCl (Flomax) 0.4 mg PO DAILY [facility] Last Admin: 11/24/17 10:11 Dose: Not Given - Labs Labs: 11/24/17 05:36 11/24/17 05:36 PT 19.7 SECONDS (9.4-12.5) H 11/21/17 16:14 INR 1.71 (0.93-1.08) H 11/21/17 16:14 APTT 40.9 Seconds (25.1-36.5) H 11/21/17 16:14 - Constitutional Appears: Non-toxic, No Acute Distress - Eye Exam Eye Exam: absent: Scleral icterus - ENT Exam ENT Exam: Mucous Membranes Moist - Respiratory Exam Respiratory Exam: Clear to Ausculation Bilateral. absent: Respiratory Distress - Cardiovascular Exam Cardiovascular Exam: RRR, +S1, +S2. absent: Gallop - GI/Abdominal Exam GI & Abdominal Exam: Soft. absent: Distended, Tenderness - Exam Exam: absent: Bladder Distension - Extremities Exam Additional comments: moderately edematous legs - Neurological Exam Neurological Exam: Alert, Awake - Psychiatric Exam Psychiatric exam: absent: Normal Mood - Skin Skin Exam: Warm. absent: Cyanosis Assessment and Plan (1) Acute renal failure Assessment & Plan: MAGALY, etiology may be multifactorial; IVF restarted to correct any pre-renal component in the setting of decreased PO intake and being on diuretics; will also give IV albumin since patient with profound hypoalbuminemia; -starting IV albumin 12.5 g q6h x 4 doses -continue NS at 50 cc/hr -continue sodium bicarb tabs; phoslo for hyperphosphatemia -awaiting renal/bladder US; -avoid nephrotoxic agents Status: Acute (2) CHF (congestive heart failure) Assessment & Plan: With severe systolic dysfunction and MR; may be contributing to renal failure; not on B-blockers but generally needed for cardiac optimization; will have cardiology assess patient as he is reluctant to start any new meds; Status: Acute (3) Metabolic acidosis Assessment & Plan: See above about sodium bicarb; Status: Acute (4) Vitamin D deficiency Assessment & Plan: Awaiting PTH results; for now, started on ergocalciferol 50,000 u weekly; Status: Acute
[2017-11-24] MEDS: Levothyroxine 25 MCG TAB PO SCH (13:06)
[2017-11-24] MEDS: Albumin Human 25% (12.5 gm/50 ml) IV SCH ×2 (13:35→17:55)
[2017-11-24] MEDS: Sodium Chloride 0.9% 1,000 ML IV SCH (13:50)
[2017-11-25] MEDS: Albumin Human 25% (12.5 gm/50 ml) IV SCH ×2 (00:10→05:38)
--- NOTE | 2017-11-25 04:22 | CP.PCM.PN ---
Subjective - Date & Time of Evaluation Date of Evaluation: 11/25/17 Time of Evaluation: 04:21 - Subjective Subjective: Nurse callls me and tells that patient has had 8 beats of vtach. Patient was seen at bedside. He was abusive, screaming, when I started asking him questions if he had chest pain, sob. He asked me to leave the room. As per nurse he was asymptomatic. Medical record was reviewed. This 66 year old white male was admitted because he was sad at the halfway he was staying at. Has PMH of atrial fibrillation, DM II, CAD with stent, pancreatic cancer , S/P chemotherapy, nephrolithiasis, tinitus, Objective - Vital Signs/Intake and Output Vital Signs (last 24 hours): Temp Pulse Resp BP Pulse Ox 98.7 F 100 H 18 101/65 98 11/24/17 16:00 11/25/17 02:00 11/24/17 16:00 11/24/17 16:00 11/24/17 16:00 Intake and Output: 11/24/17 11/25/17 18:59 06:59 Intake Total 300 180 Output Total 125 0 Balance 175 180 - Medications Medications: Current Medications Albumin Human (Albumin Human 25% (12.5 Gm/50 Ml)) 12.5 gm IV Q6H [facility] Stop: 11/25/17 06:01 Last Admin: 11/25/17 00:10 Dose: 12.5 gm Apixaban (Eliquis) 5 mg PO BID [facility] PRN Reason: Protocol Last Admin: 11/23/17 17:25 Dose: 5 mg Aspirin (Ecotrin) 81 mg PO DAILY [facility] Last Admin: 11/24/17 10:11 Dose: Not Given Calcium Acetate (Phoslo) 1,334 mg PO WM [facility] Last Admin: 11/24/17 17:55 Dose: 1,334 mg Digoxin (Lanoxin) 0.25 mg PO QOTHERDAY@1400 [facility] Last Admin: 11/23/17 14:25 Dose: 0.25 mg Ceftriaxone Sodium (Rocephin 1 Gram Ivpb) 1 gm in 100 mls @ 100 mls/hr IVPB DAILY [facility] PRN Reason: Protocol Stop: 11/26/17 10:59 Last Admin: 11/24/17 11:58 Dose: 100 mls/hr Sodium Chloride (Sodium Chloride 0.9%) 1,000 mls @ 50 mls/hr IV .Q20H [facility] Stop: 11/25/17 23:44 Last Admin: 11/24/17 13:50 Dose: 50 mls/hr Insulin Human Regular (Humulin R Low) 0 units SC ACHS [facility] PRN Reason: Protocol Last Admin: 11/24/17 22:34 Dose: Not Given Levothyroxine Sodium (Synthroid) 25 mcg PO 0600 [facility] Last Admin: 11/24/17 13:06 Dose: 25 mcg Metoprolol Succinate (Toprol Xl) 12.5 mg PO BRK [facility] Pantoprazole Sodium (Protonix Ec Tab) 40 mg PO ACB [facility] Last Admin: 11/24/17 08:19 Dose: 40 mg Sodium Bicarbonate (Sodium Bicarbonate Tab) 1,300 mg PO TID [facility] Last Admin: 11/24/17 17:55 Dose: 1,300 mg Tamsulosin HCl (Flomax) 0.4 mg PO DAILY [facility] Last Admin: 11/24/17 10:11 Dose: Not Given - Labs Labs: 11/24/17 05:36 11/24/17 05:36 PT 19.7 SECONDS (9.4-12.5) H 11/21/17 16:14 INR 1.71 (0.93-1.08) H 11/21/17 16:14 APTT 40.9 Seconds (25.1-36.5) H 11/21/17 16:14 - Constitutional Appears: Well, No Acute Distress - Head Exam Head Exam: ATRAUMATIC, NORMAL INSPECTION, NORMOCEPHALIC - Eye Exam Eye Exam: Normal appearance - ENT Exam ENT Exam: Normal External Ear Exam - Neck Exam Neck Exam: Normal Inspection - Respiratory Exam Respiratory Exam: NORMAL BREATHING PATTERN - Cardiovascular Exam Cardiovascular Exam: absent: JVD - GI/Abdominal Exam GI & Abdominal Exam: absent: Distended - Rectal Exam Rectal Exam: Deferred - Exam Additional comments: Deferred. - Extremities Exam Extremities Exam: Normal Inspection - Back Exam Back Exam: NORMAL INSPECTION - Neurological Exam Neurological Exam: Alert, Awake - Psychiatric Exam Psychiatric exam: Agitated - Skin Skin Exam: Normal Color Assessment and Plan - Assessment and Plan (Free Text) Assessment: Non sustained ventricular tachycardia. Atrial fibrillation. Pancreatic cancer. DM II. CAD. Nephrolithiasis. Plan: Add mag, phos,trop, dig level to this am's cmp. EKG. I heard form nurse that patient refused tests.If he allows later , all tests will be done. Continue present management.
[2017-11-25] MEDS: Levothyroxine 25 MCG TAB PO SCH (05:39)
[2017-11-25] MEDS: Insulin Reg-LOW-Coverage SC SCH ×4 (07:39→22:02)
[2017-11-25] MEDS: Pantoprazole 40 mg EC Tab PO SCH (07:56)
[2017-11-25] MEDS: Metoprolol Succinate 25 mg XL Tab PO SCH (07:56)
[2017-11-25] MEDS: cefTRIAXone 1 gm 1 GM/100 ML BAG IVPB SCH (09:55)
[2017-11-25] MEDS: Sodium Chloride 0.9% 1,000 ML IV SCH (09:56)
[2017-11-25 12:05] LABS: BASO # 0.02 K/mm3 (0.0-2.0); BASO % 0.2 % (0.0-3.0); EOS # 0.2 (0.0-0.7); EOS % 1.8 % (1.5-5.0); GRAN # 9.55 (1.4-6.5); GRAN % 81.2 % (50.0-68.0); HEMOGLOBIN 9.4 g/dL (14.0-18.0); LYMPH # 1.2 (1.2-3.4); LYMPH % 10.4 % (22.0-35.0); MEAN CELL VOLUME 91.6 fl (80.0-105.0); MEAN CORPUSCULAR HEMOGLOBIN 31.4 pg (25.0-35.0); MEAN CORPUSCULAR HGB CONC 34.3 g/dl (31.0-37.0); MEAN PLATELET VOLUME 8.4 fl (7.0-11.0); MONO # 0.8 (0.1-0.6); MONO % 6.4 % (1.0-6.0); RBC 2.99 10^6/uL (3.5-6.1); RED CELL DISTRIBUTION WIDTH 14.7 % (11.5-14.5); WHITE BLOOD COUNT 11.8 10^3/ul (4.5-11.0)
[2017-11-25 12:17] LABS: ALB/GLOB RATIO 0.7 (1.1-1.8); ALBUMIN 2.4 g/dL (3.0-4.8); CALCIUM 7.4 mg/dL (8.4-10.5)
[2017-11-25 12:26] LABS: TROPONIN I 0.01 ng/mL
--- NOTE | 2017-11-25 14:34 | US ---
PROCEDURE: Ultrasound of the Kidneys HISTORY: Acute renal failure COMPARISON: Comparison made with renal ultrasound dated 03/07/[address] scan of the abdomen pelvis 10/24/2017. TECHNIQUE: Sonogram of the kidneys. FINDINGS: RIGHT KIDNEY: Measures: 10.0 x 6.8 x 6.3 cm. Multiple calculi are present: Lower pole stone = 0.5 x 0.4 x 0.5 Midpole stone = 0.7 x 0.5 x 0.7 Upper pole stone = 0.85 x 0.7 x 0.8. No evidence hydronephrosis. LEFT KIDNEY: Measures: 9.4 x 8.8 x 7.0 cm. Normal in size, contour and echogenicity. There is a parapelvic cyst that measures 6.3 x 5.0 cm. Upper pole calculus measuring 1.2 x 0.63 x 1.5 cm. No evidence of hydronephrosis. OTHER FINDINGS: None. IMPRESSION: Multiple renal calculi right kidney as above. There is a left parapelvic cyst and left upper pole calculus. No evidence of hydronephrosis.
--- NOTE | 2017-11-25 14:36 | US ---
PROCEDURE: Bladder ultrasound 11/25/2017 HISTORY: check post-void residual volume COMPARISON: Comparison made with prior study 03/16/2013 TECHNIQUE: Transabdominal sonographic evaluation of the urinary bladder performed. FINDINGS: Prevoid urinary bladder volume calculated at nearly 511 cc. . Patient was unable to void. There is large amount of pelvic ascites present. . IMPRESSION: Large prevoid volume as above. Patient unable to void. Large amount of pelvic ascites present. Present.
[2017-11-25] MEDS: Digoxin 250 mcg (0.25 mg) Tab PO SCH (15:08)
--- NOTE | 2017-11-25 19:03 | CP.PCM.CON ---
History of Present Illness - History of Present Illness History of Present Illness: Infectious Disease Consultation: November 25, 2017 66 yo male with extensive PMHx of pancreatic cancer (on chemo, s/p gastrojejunostomy due to gastric outlet obstruction by Dr. Dsouza, and pancreatic stent placement by Dr. Dorantes, not a surgical candidate for pancreatic surgery), Atrial fibrillation, CAD, Right tinnitus, DM Type 2, and nephrolithiasis. Sent initially to [facility] from [facility] for suicidal ideation. The last hospitalization at [facility], the patient had jaundice secondary to an obstructed stent and MAGALY. Discharged to [facility] on 11/01/2017 after IR percutaneous drainage and improvement in liver functions. He is no longer stating suicidal thoughts at this current times. Wound cultures showing E. Coli that was highly sensitive to most antibiotics. PMHx: Pancreatic CA (on chemo, s/p gastrojejunostomy due to gastric outlet obstruction by Dr. Dsouza, and pancreatic stent placement by Dr. Dorantes, not a surgical candidate for pancreatic surgery), Afib (on Dig), CAD s/p stent (by Dr. Yoder), R tinnitus, DM2 (states has improved since he lost weight with his cancer) and nephrolithiasis PSHx: Gastrojejunostomy, pancreatic stent, cardiac stent Allergies: IV tape Social Hx: Ex-smoker Former EtOH Distant use of Marijuana (many years ago) Active Medications Apixaban (Eliquis) 5 mg PO BID [facility] TO [facility] PRN Reason: Protocol Last Admin: 11/23/17 17:25 Dose: 5 mg Aspirin (Ecotrin) 81 mg PO DAILY [facility] Last Admin: 11/25/17 09:55 Dose: 81 mg Calcium Acetate (Phoslo) 1,334 mg PO WM [facility] Last Admin: 11/25/17 18:16 Dose: Not Given Digoxin (Lanoxin) 0.25 mg PO QOTHERDAY@1400 [facility] Last Admin: 11/25/17 15:08 Dose: 0.25 mg Ceftriaxone Sodium (Rocephin 1 Gram Ivpb) 1 gm in 100 mls @ 100 mls/hr IVPB DAILY [facility] PRN Reason: Protocol Stop: 11/26/17 10:59 Last Admin: 11/25/17 09:55 Dose: 100 mls/hr Sodium Chloride (Sodium Chloride 0.9%) 1,000 mls @ 50 mls/hr IV .Q20H [facility] Stop: 11/25/17 23:44 Last Admin: 11/25/17 09:56 Dose: 50 mls/hr Insulin Human Regular (Humulin R Low) 0 units SC ACHS [facility] PRN Reason: Protocol Last Admin: 11/25/17 16:35 Dose: Not Given Levothyroxine Sodium (Synthroid) 25 mcg PO 0600 [facility] Last Admin: 11/25/17 05:39 Dose: Not Given Metoprolol Succinate (Toprol Xl) 12.5 mg PO BRK [facility] Last Admin: 11/25/17 07:56 Dose: Not Given Pantoprazole Sodium (Protonix Ec Tab) 40 mg PO ACB [facility] Last Admin: 11/25/17 07:56 Dose: Not Given Sodium Bicarbonate (Sodium Bicarbonate Tab) 1,300 mg PO TID [facility] Last Admin: 11/25/17 18:16 Dose: Not Given Tamsulosin HCl (Flomax) 0.4 mg PO DAILY [facility] Last Admin: 11/25/17 09:55 Dose: 0.4 mg Family Hx: none given ROS: Patient not willing to answer question. Past Patient History - Infectious Disease Hx of Infectious Diseases: None - Tetanus Immunizations Tetanus Immunization: Unknown - Past Medical History & Family History Past Medical History?: Yes - Past Social History Smoking Status: Former Smoker - CARDIAC Hx Pacemaker: No - PULMONARY Hx Respiratory Disorders: Yes (LUNG NODULE.SMOKED CIGARETTES-QUIT 1973. <PK. SMOKED MARIJUANA.LAST 2014) Hx Pneumonia: Yes - NEUROLOGICAL Hx Paralysis: No - HEENT Hx HEENT Problems: No - RENAL Hx Chronic Kidney Disease: Yes Hx Kidney Stones: Yes - ENDOCRINE/METABOLIC Hx Diabetes Mellitus Type 2: Yes - HEMATOLOGICAL/ONCOLOGICAL Hx Blood Transfusions: No Hx Blood Transfusion Reaction: No - INTEGUMENTARY Hx Dermatological Problems: Yes - MUSCULOSKELETAL/RHEUMATOLOGICAL Hx Musculoskeletal Disorders: No - GASTROINTESTINAL Hx Gastrointestinal Disorders: Yes Hx Gastroesophageal Reflux: Yes Other/Comment: esophageal ulcers, esophageal polyp. food bezoar, duodenal gstric outlet obstruction, barretts esophagus, gi bleed, constipation, nausea - GENITOURINARY/GYNECOLOGICAL Hx Genitourinary Disorders: No Hx Prostate Problems: Yes - PSYCHIATRIC Hx Emotional Abuse: No Hx Physical Abuse: No Hx Substance Use: Yes (MARIJUANA. LAST SMOKED LAST 2014) - SURGICAL HISTORY Hx Coronary Stent: Yes (03/2013) Other/Comment: ? Stent on Gallbladder. ? Stomach bypass sx - ANESTHESIA Hx Anesthesia Reactions: No Hx Malignant Hyperthermia: No Meds Allergies/Adverse Reactions: Allergies Allergy/AdvReac Type Severity Reaction Status Date / Time iv tape Allergy Mild RASH Uncoded 04/12/17 16:29 - Medications Medications: Current Medications Apixaban (Eliquis) 5 mg PO BID [facility] PRN Reason: Protocol Last Admin: 11/23/17 17:25 Dose: 5 mg Aspirin (Ecotrin) 81 mg PO DAILY [facility] Last Admin: 11/25/17 09:55 Dose: 81 mg Calcium Acetate (Phoslo) 1,334 mg PO WM [facility] Last Admin: 11/25/17 18:16 Dose: Not Given Digoxin (Lanoxin) 0.25 mg PO QOTHERDAY@1400 [facility] Last Admin: 11/25/17 15:08 Dose: 0.25 mg Ceftriaxone Sodium (Rocephin 1 Gram Ivpb) 1 gm in 100 mls @ 100 mls/hr IVPB DAILY [facility] PRN Reason: Protocol Stop: 11/26/17 10:59 Last Admin: 11/25/17 09:55 Dose: 100 mls/hr Sodium Chloride (Sodium Chloride 0.9%) 1,000 mls @ 50 mls/hr IV .Q20H [facility] Stop: 11/25/17 23:44 Last Admin: 11/25/17 09:56 Dose: 50 mls/hr Insulin Human Regular (Humulin R Low) 0 units SC ACHS [facility] PRN Reason: Protocol Last Admin: 11/25/17 16:35 Dose: Not Given Levothyroxine Sodium (Synthroid) 25 mcg PO 0600 [facility] Last Admin: 11/25/17 05:39 Dose: Not Given Metoprolol Succinate (Toprol Xl) 12.5 mg PO BRK [facility] Last Admin: 11/25/17 07:56 Dose: Not Given Pantoprazole Sodium (Protonix Ec Tab) 40 mg PO ACB [facility] Last Admin: 11/25/17 07:56 Dose: Not Given Sodium Bicarbonate (Sodium Bicarbonate Tab) 1,300 mg PO TID [facility] Last Admin: 11/25/17 18:16 Dose: Not Given Tamsulosin HCl (Flomax) 0.4 mg PO DAILY [facility] Last Admin: 11/25/17 09:55 Dose: 0.4 mg Physical Exam - Constitutional Appears: Non-toxic, No Acute Distress, Chronically Ill - Head Exam Head Exam: ATRAUMATIC, NORMOCEPHALIC - Eye Exam Eye Exam: EOMI, PERRL, Scleral icterus Pupil Exam: NORMAL ACCOMODATION, PERRL - ENT Exam ENT Exam: Mucous Membranes Moist, Normal External Ear Exam, TM's Normal Bilaterally - Neck Exam Neck exam: Positive for: Full Rom, Normal Inspection - Respiratory Exam Respiratory Exam: Clear to Auscultation Bilateral, NORMAL BREATHING PATTERN. absent: Rales, Rhonchi, Wheezes - Cardiovascular Exam Cardiovascular Exam: REGULAR RHYTHM, RRR, +S1, +S2 - GI/Abdominal Exam GI & Abdominal Exam: Soft. absent: Distended, Tenderness - Extremities Exam Extremities exam: Positive for: joint swelling, pedal edema Additional comments: +2-3 overall edema of the legs. - Neurological Exam Neurological exam: Alert, CN II-XII Intact, Oriented x3 - Psychiatric Exam Additional comments: In foul mood. - Skin Skin Exam: Intact, Normal Color Results - Vital Signs Recent Vital Signs: Last Vital Signs Temp 98.7 F 11/24/17 16:00 Pulse 94 H 11/25/17 14:00 Resp 18 11/24/17 16:00 BP 101/65 11/24/17 16:00 Pulse Ox 98 11/24/17 16:00 - Labs Result Diagrams: 11/25/17 11:58 11/25/17 11:58 Labs: Laboratory Results - last 24 hr 11/24/17 11/25/17 11/25/17 22:00 11:58 11:58 WBC 11.8 H RBC 2.99 L Hgb 9.4 L Hct 27.4 L MCV 91.6 MCH 31.4 MCHC 34.3 RDW 14.7 H Plt Count 288 MPV 8.4 Gran % 81.2 H Lymph % (Auto) 10.4 L Montour % (Auto) 6.4 H Eos % (Auto) 1.8 Baso % (Auto) 0.2 Gran # 9.55 H Lymph # (Auto) 1.2 [place] # (Auto) 0.8 H Eos # (Auto) 0.2 Baso # (Auto) 0.02 Sodium 136 Potassium 4.2 Chloride 106 Carbon Dioxide 16 L Anion Gap 18 BUN 63 H Creatinine 2.7 H Est GFR ( Amer) 29 Est GFR (Non-Af Amer) 24 POC Glucose (mg/dL) 98 Random Glucose 125 H Calcium 7.4 L Phosphorus 6.3 H Magnesium 2.0 Total Bilirubin 1.7 H AST 13 L D ALT 19 Alkaline Phosphatase 69 Troponin I 0.01 Total Protein 5.7 L Albumin 2.4 L Globulin 3.3 Albumin/Globulin Ratio 0.7 L Digoxin 11/25/17 11/25/17 11/25/17 11:58 13:00 13:00 WBC RBC Hgb Hct MCV MCH MCHC RDW Plt Count MPV Gran % Lymph % (Auto) Montour % (Auto) Eos % (Auto) Baso % (Auto) Gran # Lymph # (Auto) Montour # (Auto) Eos # (Auto) Baso # (Auto) Sodium Potassium Chloride Carbon Dioxide Anion Gap BUN Creatinine Est GFR ( Amer) Est GFR (Non-Af Amer) POC Glucose (mg/dL) 117 H 117 H Random Glucose Calcium Phosphorus Magnesium Total Bilirubin AST ALT Alkaline Phosphatase Troponin I Total Protein Albumin Globulin Albumin/Globulin Ratio Digoxin 0.7 L 11/25/17 16:30 WBC RBC Hgb Hct MCV MCH MCHC RDW Plt Count MPV Gran % Lymph % (Auto) Montour % (Auto) Eos % (Auto) Baso % (Auto) Gran # Lymph # (Auto) Montour # (Auto) Eos # (Auto) Baso # (Auto) Sodium Potassium Chloride Carbon Dioxide Anion Gap BUN Creatinine Est GFR ( Amer) Est GFR (Non-Af Amer) POC Glucose (mg/dL) 93 Random Glucose Calcium Phosphorus Magnesium Total Bilirubin AST ALT Alkaline Phosphatase Troponin I Total Protein Albumin Globulin Albumin/Globulin Ratio Digoxin Assessment & Plan - Assessment and Plan (Free Text) Assessment: 66 yo male with multiple medical issues including MAGALY, poor nutrition , CHF, FTT, and pancreatic cancer. The patient found to have E. coli in his left leg wounds. E. coli sensitive to Fluoroquinolones. Would consider Levaquin dosing despite renal issues given high bioavailability of drug even in its oral form and high tissue penetrance. The patient can be uncooperative at times. This can be due to the poor outlook of his pancreatic malignancy. Supportive care. Currently on Rocephin IV. Will add Levaquin to regimen as the Rocephin will on 11/26/2017. Local wound care. Thank you for allowing me to participate in the care of the patient, we will follow with you.
[2017-11-25] MEDS ORDERED: levoFLOXacin 500 mg in D5W 500 MG/100 ML BAG IVPB ONE (20:00)
--- NOTE | 2017-11-26 02:23 | CON ---
DATE: REASON FOR CONSULTATION: Rapid atrial fibrillation. HISTORY OF PRESENT ILLNESS: The patient is a 66-year-old male who has a history of pancreatic cancer with transfer from longterm because of depression. As per the ER evaluation, the patient denied suicidal ideation despite the fact that he mentioned that to the longterm team to avoid being bothered by them. Patient denies any chest pain. Patient did pull the telemetry out because of what he described as being annoyed by the telemetry nurse keep checking on him. The patient is unaware of any history in the past and he denies any suicidal ideation at this time. MEDICATIONS: Aspirin 81 mg twice a day, Eliquis 5 mg twice a day, Flomax 0.4 mg once a day, digoxin 0.25 mg every other day orally, PhosLo 1334 mg p.o. with each meal, Rocephin 1 g intravenously daily, sodium bicarbonate 1500 mg t.i.d., Synthroid 25 mcg once a day, Toprol-XL 12.5 mg once a day. REVIEW OF SYSTEMS: No dizziness or syncope. No hematemesis. PAST MEDICAL HISTORY: Hypertension, chronic renal insufficiency, hypothyroidism, chronic atrial fibrillation, PHYSICAL EXAMINATION: GENERAL: Patient is an elderly male who does not appear to be in acute distress. VITAL SIGNS: Blood pressure 101/65, heart rate 93, temperature 98.7, respiration 20. HEENT: Pale conjunctiva. CHEST: Absent breath sounds on the right base. HEART: S1 and S2 regular. ABDOMEN: Moderate ascites. EXTREMITIES: 2+ pitting edema. Chest x-ray reviewed, borderline cardiomegaly, right lower lobe infiltrate with right pleural effusion. Port-A-Cath noted in the superior vena cava. EKG revealed atrial fibrillation with a rate of 107, cannot rule out anterior infarct or inferior infarct of indeterminate age. Nonspecific lateral ST-T wave changes. Chest CT scan, no pulmonary infiltrate, bilateral pleural effusion, right greater than left. Minimal bilateral lower lobe compression atelectasis. Ascites. Left renal calculus. ASSESSMENT: 1. Chronic atrial fibrillation. 2. Bilateral pleural effusion, right greater than left. 3. Pancreatic cancer. 4. Chronic insufficiency. 5. Anemia. 6. Hypertension. 7. Hypothyroidism. 8. Systolic heart failure. The patient's most recent echo in April of last year revealed ejection fraction in the range of 25%. 9. Coronary artery disease. Most recent cardiac catheterization in 01/2016 revealed chronic septal second diagonal vessel, which could not be opened due to tortuosity of the vessel. RECOMMENDATIONS: Continue aspirin 81 mg once a day, Eliquis 5 mg twice a day,Lanoxin 0.25 mg every other day, Rocephin 1 g intravenously daily, Synthroid 25 mcg daily, Toprol-XL 12.5 mg once a day. Patient is not specifically a candidate for either Srinivas inhibitor or Aldactone therapy. Shay Urias MD
[2017-11-26 07:08] LABS: BASO # 0.02 K/mm3 (0.0-2.0); BASO % 0.2 % (0.0-3.0); EOS # 0.2 (0.0-0.7); GRAN # 9.67 (1.4-6.5); GRAN % 79.5 % (50.0-68.0); HEMOGLOBIN 9.5 g/dL (14.0-18.0); LYMPH # 0.9 (1.2-3.4); LYMPH % 7.4 % (22.0-35.0); MEAN CELL VOLUME 91.1 fl (80.0-105.0); MEAN CORPUSCULAR HEMOGLOBIN 31.1 pg (25.0-35.0); MEAN CORPUSCULAR HGB CONC 34.2 g/dl (31.0-37.0); MEAN PLATELET VOLUME 8.7 fl (7.0-11.0); MONO # 1.3 (0.1-0.6); MONO % 10.9 % (1.0-6.0); RBC 3.05 10^6/uL (3.5-6.1); RED CELL DISTRIBUTION WIDTH 14.8 % (11.5-14.5); WHITE BLOOD COUNT 12.2 10^3/ul (4.5-11.0)
[2017-11-26 07:39] LABS: ALB/GLOB RATIO 0.6 (1.1-1.8); ALBUMIN 2.2 g/dL (3.0-4.8); CALCIUM 7.2 mg/dL (8.4-10.5)
[2017-11-26] MEDS ORDERED: Lidocaine 2% Inj (20ml) ONE (07:44)
[2017-11-26] MEDS ORDERED: Iodixanol 320 MG/ML 200 ML BOTTLE IV ONE (07:44)
[2017-11-26] MEDS ORDERED: Midazolam 2 MG/2 ML VIAL ONE ×3 (07:44→08:56)
[2017-11-26] MEDS: Insulin Reg-LOW-Coverage SC SCH ×4 (08:12→21:57)
[2017-11-26] MEDS: Pantoprazole 40 mg EC Tab PO SCH (08:12)
--- NOTE | 2017-11-26 08:30 | PN ---
DATE: SUBJECTIVE: The patient is a 66-year-old male. The patient was seen and examined at the bedside, looking comfortable. No nausea, vomiting, or diarrhea. No hematuria or hematochezia. No headache. No dizziness. No chest pain. No palpitation. Looks a little bit anxious. PHYSICAL EXAMINATION: VITAL SIGNS: Temperature 97.5, pulse 112, blood pressure 98/50, respiratory rate 20. HEENT: Head is normocephalic and atraumatic. Eyes, PERRLA. Extraocular muscles are intact. Conjunctivae are clear. Nose is patent. Mucous membranes moist. NECK: Supple. No carotid bruit. No JVD or thyromegaly. CHEST: Bilaterally symmetrical. HEART: S1 and S2 positive. LUNGS: Clear to auscultation. ABDOMEN: Soft. Bowel sounds present. No organomegaly. EXTREMITIES: No edema. No cyanosis. NEUROLOGICAL: The patient is awake and alert, follows commands. MEDICATIONS: Aspirin, Eliquis, Flomax, insulin, Lanoxin, PhosLo, Protonix, Rocephin, bicarbonate, NS, Synthroid, and Toprol. LABORATORY DATA: White blood cells 12.6, hemoglobin 9.6, hematocrit 28.1, and platelets noted . Sodium 133, potassium 4.6, BUN 64, creatinine 2.9, glucose 99 and 112, calcium 7.1. ASSESSMENT AND PLAN: Mr. Franky Campuzano is a 66-year-old male with leukocytosis; anemia; renal insufficiency, hydrological technical officer, Dr. Clark, is on the case; hyperglycemia; hypocalcemia; proteinuria; hematuria; urinary tract infection; microalbuminuria. Seen by Dr. Douglas Dsouza, surgeon. Holding Eliquis for the procedure on Sunday. Sunday, the patient is going for procedure. Dr. Terrence Dorantes will change percutaneous transhepatic cholangiography to internal stent on 11/26/2017. The patient has history of pancreatic cancer , awaiting for the [facility]. Transferred to [facility] because the patient was anxious, fatigued, and tired. The patient is getting chemotherapy, status post gastrojejunostomy due to gastric outlet obstruction. Pancreatic stent was placed by Dr. Terrence Dorantes. Gastrointestinal and deep venous thrombosis prophylaxis. Repeat labs. We will follow up. Joy Nix MD [facility] # [id number] JACK
[2017-11-26] MEDS ORDERED: Iohexol 350mgl/ml 50 ML ONE (09:02)
[2017-11-26] MEDS ORDERED: Sodium Chloride 0.45% 1,000 ML IV SCH (09:15)
[2017-11-26] MEDS: cefTRIAXone 1 gm 1 GM/100 ML BAG IVPB SCH (10:13)
[2017-11-26] MEDS: Metoprolol Succinate 25 mg XL Tab PO SCH ×2 (10:14→13:16)
--- NOTE | 2017-11-26 14:43 | PN ---
DATE: 11/26/2017 SUBJECTIVE: The patient was seen and examined on the bedside, looking comfortable. Abdominal pain is better. No nausea, vomiting, or diarrhea. No hematuria or hematochezia. He had ulcer on the left leg. ID is on the case. No fever. No chills. PHYSICAL EXAMINATION: VITAL SIGNS: Temperature is 98.7, pulse 94, respiratory rate 18, blood pressure 101/65, respiratory rate 19. HEENT: Head: Normocephalic, atraumatic. Eyes: PERRLA. Extraocular muscles intact. Conjunctivae clear. Nose: Patent. Mucous membrane moist. NECK: Supple. No carotid bruit. No JVD or thyromegaly. CHEST: Bilaterally symmetrical. HEART: S1 and S2 positive. LUNGS: Clear to auscultation. ABDOMEN: Soft. Bowel sounds positive. No organomegaly. EXTREMITIES: No edema. No cyanosis. NEUROLOGICAL: The patient is awake and alert. Moving all 4 extremities. No focal deficits. LABORATORY DATA: White blood cells 11.8, hemoglobin 9.4, hematocrit 27.4, platelets 288. Sodium 136, potassium 4.2, BUN noted , creatinine 2.4, glucose 125. ASSESSMENT AND PLAN: Mr. Franky Campuzano is a 66-year-old male with leukocytosis; anemia; renal insufficiency; hyperglycemia; has history of pancreatic cancer, on chemo; status post gastrojejunostomy due to gastric outlet obstruction by Dr. Darling; pancreatic stent placement by Dr. Dorantes; noted to have surgical candidate for pancreatic surgery; atrial fibrillation; coronary artery disease; tinnitus; diabetes mellitus type 2; nephrolithiasis; history of depression; has suicidal ideation in the [facility], brought him back in [facility]. The patient has history of jaundice secondary to obstructive stents; acute kidney injury; status post IR percutaneous drainage and improvement in the liver function. Now, his depression is better; history of marijuana abuse many years ago. Now, we will continue Eliquis; Ecotrin; PhosLo; Lovenox for deep vein thrombosis prophylaxis; Rocephin antibiotics as per ID; the patient is getting insulin sliding scale; Synthroid for hypothyroidism; metoprolol for blood pressure; Protonix for gastrointestinal prophylaxis; Flomax for benign prostatic hypertrophy. Sometimes, the patient is uncooperative, urged to be cooperative, may be due to his medical condition, but educated him supportive care. ID added Levaquin to the regimen will on 11/26/2017. Local wound care. I appreciate Dr. Sexton's input. We will follow up. Joy Nix MD MTDAnderson
--- NOTE | 2017-11-26 17:59 | CP.PCM.PN ---
Subjective - Date & Time of Evaluation Date of Evaluation: 11/26/17 Time of Evaluation: 16:30 - Subjective Subjective: Infectious Disease Follow Up: November 26, 2017 66 yo male with extensive PMHx of pancreatic cancer (on chemo, s/p gastrojejunostomy due to gastric outlet obstruction by Dr. Dsouza, and pancreatic stent placement by Dr. Dorantes, not a surgical candidate for pancreatic surgery), Atrial fibrillation, CAD, Right tinnitus, DM Type 2, and nephrolithiasis. Sent initially to [facility] [place] [place] from [facility] for suicidal ideation. The last hospitalization at [facility] [place] [place], the patient had jaundice secondary to an obstructed stent and MAGALY. Discharged to [facility] on 11/01/2017 after IR percutaneous drainage and improvement in liver functions. He is no longer stating suicidal thoughts at this current times. Wound cultures showing E. Coli that was highly sensitive to most antibiotics. Was on Rocephin and switched to Levaquin for antibiotic treatment. Objective - Vital Signs/Intake and Output Vital Signs (last 24 hours): Temp Pulse Resp BP Pulse Ox 97.6 F 107 H 12 112/69 100 11/26/17 09:46 11/26/17 14:00 11/26/17 09:46 11/26/17 13:16 11/26/17 09:46 Intake and Output: 11/26/17 11/26/17 06:59 18:59 Intake Total 660 400 Output Total 1000 400 Balance -340 0 - Medications Medications: Current Medications Apixaban (Eliquis) 5 mg PO BID [facility] PRN Reason: Protocol Last Admin: 11/23/17 17:25 Dose: 5 mg Aspirin (Ecotrin) 81 mg PO DAILY [facility] Last Admin: 11/26/17 10:13 Dose: 81 mg Calcium Acetate (Phoslo) 1,334 mg PO WM [facility] Last Admin: 11/26/17 17:16 Dose: 1,334 mg Digoxin (Lanoxin) 0.25 mg PO QOTHERDAY@1400 [facility] Last Admin: 11/25/17 15:08 Dose: 0.25 mg Levofloxacin/Dextrose (Levaquin 250mg) 250 mg in 50 mls @ 100 mls/hr IVPB 2000 [facility] Sodium Chloride (Sodium Chloride 0.45%) 1,000 mls @ 100 mls/hr IV .Q10H [facility] Stop: 11/27/17 08:00 Insulin Human Regular (Humulin R Low) 0 units SC ACHS [facility] PRN Reason: Protocol Last Admin: 11/26/17 16:08 Dose: Not Given Levothyroxine Sodium (Synthroid) 25 mcg PO 0600 [facility] Last Admin: 11/25/17 05:39 Dose: Not Given Metoprolol Succinate (Toprol Xl) 12.5 mg PO BRK [facility] Last Admin: 11/26/17 13:16 Dose: 12.5 mg Pantoprazole Sodium (Protonix Ec Tab) 40 mg PO ACB [facility] Last Admin: 11/26/17 08:12 Dose: Not Given Sodium Bicarbonate (Sodium Bicarbonate Tab) 1,300 mg PO TID [facility] Last Admin: 11/26/17 17:16 Dose: 1,300 mg Tamsulosin HCl (Flomax) 0.4 mg PO DAILY [facility] Last Admin: 11/26/17 10:13 Dose: 0.4 mg - Labs Labs: 11/26/17 06:45 11/26/17 06:45 PT 19.7 SECONDS (9.4-12.5) H 11/21/17 16:14 INR 1.71 (0.93-1.08) H 11/21/17 16:14 APTT 40.9 Seconds (25.1-36.5) H 11/21/17 16:14 - Constitutional Appears: Non-toxic, No Acute Distress, Chronically Ill - Head Exam Head Exam: ATRAUMATIC, NORMOCEPHALIC - Eye Exam Eye Exam: EOMI, PERRL Pupil Exam: NORMAL ACCOMODATION, PERRL - ENT Exam ENT Exam: Mucous Membranes Moist, Normal External Ear Exam, TM's Normal Bilaterally - Neck Exam Neck Exam: Full ROM, Normal Inspection - Respiratory Exam Respiratory Exam: Clear to Ausculation Bilateral, NORMAL BREATHING PATTERN. absent: Rales, Rhonchi, Wheezes - Cardiovascular Exam Cardiovascular Exam: REGULAR RHYTHM, RRR, +S1, +S2 - GI/Abdominal Exam GI & Abdominal Exam: Soft, Normal Bowel Sounds. absent: Distended, Tenderness - Extremities Exam Extremities Exam: Joint Swelling, Pedal Edema Additional comments: +2-3 overall edema of the legs. - Neurological Exam Neurological Exam: Alert, Awake, CN II-XII Intact, Oriented x3 - Skin Skin Exam: Intact, Normal Color Assessment and Plan - Assessment and Plan (Free Text) Assessment: 66 yo male with multiple medical issues including MAGALY, poor nutrition , CHF, FTT, and pancreatic cancer. The patient found to have E. coli in his left leg wounds. E. coli sensitive to Fluoroquinolones. Would consider Levaquin dosing despite renal issues given high bioavailability of drug even in its oral form and high tissue penetrance. The patient can be uncooperative at times. This can be due to the poor outlook of his pancreatic malignancy. Supportive care. Currently on Rocephin IV and Levaquin IV. Continue with Levaquin on regimen as the Rocephin will on 11/26/2017. Local wound care. Thank you for allowing me to participate in the care of the patient, we will follow with you.
--- NOTE | 2017-11-26 18:06 | VASCULAR ---
PROCEDURE: 1. Cholangiogram 2. CBD dilatation and distal CBD internal stent graft placement HISTORY: Advanced pancreatic CA with biliary obstruction. Recently removed internal biliary stent. Needs new internal biliary stent in dilatation. PHYSICIAN(S): Terrence Dorantes MD. TECHNIQUE: The relative risks and indications of the procedure were explained the patient consent obtained. Patient placed supine on the arteriogram table in left-sided biliary drain prepped and draped usual sterile fashion. Conscious sedation monitoring were provided throughout the procedure by a nurse. The patient is on antibiotics. 1 percent xylocaine was used to anesthetize the skin soft tissues at the entry site. Contrast was injected via the internal/external biliary drain and a cholangiogram performed. This revealed a malignant distal CBD obstruction. 0.035 glidewire was advanced through the tube and placed in the duodenum. Exchange is made for a 0.035 support wire. The tube was removed and a 9 Mongolian 25 cm sheath placed in the proximal CBD. A marker catheter was used to length measure the length of the malignant obstruction. 10 mm x 8 cm wall graft was deployed in the mid to distal CBD extending into the duodenum. The graft was then dilated with an 8 mm x 8 cm balloon. An excellent cholangiographic result was obtained with brisk drainage into the duodenum. No safety catheter was placed. The patient tolerated the procedure well. FINDINGS: There is a malignant structure the distal CBD below the cystic duct. Successful placement of 10 mm CBD stent graft was performed with subsequent dilatation with an 8 mm balloon. IMPRESSION: 1.Distal CBD obstruction consistent with the patient's known pancreatic malignancy. 2. Successful dilatation and placement of 10 mm x 8 cm stent graft as described above.
[2017-11-26] MEDS ORDERED: Oxycodone/Acetaminophen 5/325 mg Tab PO ONE (18:31)
--- NOTE | 2017-11-26 19:44 | CP.PCM.PN ---
Subjective - Date & Time of Evaluation Date of Evaluation: 11/26/17 Time of Evaluation: 12:45 - Subjective Subjective: Patient s/p biliary stent placement today; hasn't eaten yet; Objective - Vital Signs/Intake and Output Vital Signs (last 24 hours): Temp Pulse Resp BP Pulse Ox 98.7 F 99 H 20 104/74 96 11/26/17 16:00 11/26/17 18:00 11/26/17 16:00 11/26/17 16:00 11/26/17 16:00 Intake and Output: 11/26/17 11/27/17 18:59 06:59 Intake Total 400 Output Total 400 Balance 0 - Medications Medications: Current Medications Apixaban (Eliquis) 5 mg PO BID [facility] PRN Reason: Protocol Last Admin: 11/23/17 17:25 Dose: 5 mg Aspirin (Ecotrin) 81 mg PO DAILY [facility] Last Admin: 11/26/17 10:13 Dose: 81 mg Calcium Acetate (Phoslo) 1,334 mg PO WM [facility] Last Admin: 11/26/17 17:16 Dose: 1,334 mg Digoxin (Lanoxin) 0.25 mg PO QOTHERDAY@1400 [facility] Last Admin: 11/25/17 15:08 Dose: 0.25 mg Levofloxacin/Dextrose (Levaquin 250mg) 250 mg in 50 mls @ 100 mls/hr IVPB 2000 [facility] Insulin Human Regular (Humulin R Low) 0 units SC ACHS [facility] PRN Reason: Protocol Last Admin: 11/26/17 16:08 Dose: Not Given Levothyroxine Sodium (Synthroid) 25 mcg PO 0600 [facility] Last Admin: 11/25/17 05:39 Dose: Not Given Metoprolol Succinate (Toprol Xl) 12.5 mg PO BRK [facility] Last Admin: 11/26/17 13:16 Dose: 12.5 mg Pantoprazole Sodium (Protonix Ec Tab) 40 mg PO ACB [facility] Last Admin: 11/26/17 08:12 Dose: Not Given Sodium Bicarbonate (Sodium Bicarbonate Tab) 1,300 mg PO TID [facility] Last Admin: 11/26/17 17:16 Dose: 1,300 mg Tamsulosin HCl (Flomax) 0.8 mg PO DAILY [facility] - Labs Labs: 11/26/17 06:45 11/26/17 06:45 PT 19.7 SECONDS (9.4-12.5) H 11/21/17 16:14 INR 1.71 (0.93-1.08) H 11/21/17 16:14 APTT 40.9 Seconds (25.1-36.5) H 11/21/17 16:14 - Constitutional Appears: Non-toxic, No Acute Distress - Respiratory Exam Respiratory Exam: Clear to Ausculation Bilateral. absent: Respiratory Distress - Cardiovascular Exam Cardiovascular Exam: +S1, +S2. absent: Gallop - GI/Abdominal Exam GI & Abdominal Exam: Distended, Soft - Extremities Exam Additional comments: moderate leg edema, anasarca - Neurological Exam Neurological Exam: Alert, Awake - Psychiatric Exam Psychiatric exam: absent: Agitated - Skin Skin Exam: Warm. 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 as he has urinary retention with high post-void residual on bladder US but no overt hydronephrosis ; likely also a cardiorenal component, just started on B-blockers for CHF optimization; -increasing flomax to 0.8 mg daily -continue B-Blockers and titrate up dose as tolerated; Status: Acute (2) CHF (congestive heart failure) Assessment & Plan: With severe systolic dysfunction; see above; holding off on diuretics for now; Status: Chronic (3) Metabolic acidosis Assessment & Plan: On PO bicarb supplementation, continue; Status: Chronic (4) Vitamin D deficiency Assessment & Plan: With elevated PTH in the setting of renal failure; starting ergocalciferol 50, 000 u weekly; Status: Chronic
[2017-11-26] MEDS: levoFLOXacin 250 mg in D5W 250 MG/50 ML BAG IVPB SCH (21:25)
--- NOTE | 2017-11-27 03:20 | PN ---
DATE: SUBJECTIVE: The patient is 66-year-old male. The patient is seen and examined at the bedside, looking comfortable. No nausea, vomiting, diarrhea. No hematemesis or hematochezia. No headache or dizziness. No chest pain. No palpitation. Has wound on the leg. Wound culture is showing E. coli that was highly sensitive for most antibiotics, Levaquin for antibiotic treatment. PHYSICAL EXAMINATION: VITAL SIGNS: Temperature 97.6, pulse 107, respiratory rate 20, blood pressure 112/69, pulse oximetry 100. HEENT: Head normocephalic, atraumatic. Eyes PERRLA. Extraocular muscles intact. Conjunctivae clear. Nose patent. Mucous membranes moist. NECK: Supple. No carotid bruit. No JVD or thyromegaly. CHEST: Bilaterally symmetrical. HEART: S1, S2 positive. LUNGS: Clear to auscultation. ABDOMEN: Soft. Bowel sounds present. No organomegaly. EXTREMITIES: No edema. No cyanosis. NEUROLOGIC: The patient is awake, alert, moving all four extremities. No focal deficits. Follows simple orders. MEDICATIONS: Eliquis, Ecotrin, PhosLo, Lanoxin, Levaquin, NS, insulin, levothyroxine, metoprolol, Protonix, Flomax. LABORATORY DATA: White blood cells 12.2, hemoglobin is 9.6, hematocrit 27.8, platelets 234. Sodium 139, potassium 3.9, BUN 61, creatinine 2.6, glucose 57. ASSESSMENT AND PLAN: Mr. Franky Campuzano is a 66-year-old male with renal insufficiency, hypoglycemia, leukocytosis, anemia, has multiple medical problems, poor nutrition, congestive heart failure, pancreatic cancer. The patient was found to have E. coli in his left leg. E. coli is sensitive to. We will continue Levaquin dosing despite renal issues, given high viability of the drug even in its oral form and high tissue penetration. The patient can be uncooperative at times, depending on the mood. This can be due to poor outlook of his pancreatic malignancies. The patient lives alone in his home; he does not have any family. Needs supportive care. He is not able to do his activities of daily living. Transfer to go back to [facility] upon discharge. Currently on Rocephin and Levaquin. Local wound care. According to Oncology, Dr. Rey, the patient needs chemotherapy. Appreciated Dr. Phong's communication report. Gastrointestinal and deep venous thrombosis prophylaxis. Repeat labs. We will follow. Joy Nix MD MTDAnderson
[2017-11-27] MEDS: Levothyroxine 25 MCG TAB PO SCH (06:13)
[2017-11-27 07:04] LABS: BASO # 0.04 K/mm3 (0.0-2.0); BASO % 0.2 % (0.0-3.0); EOS # 0.1 (0.0-0.7); EOS % 0.5 % (1.5-5.0); GRAN # 14.79 (1.4-6.5); GRAN % 84.2 % (50.0-68.0); HEMOGLOBIN 9.9 g/dL (14.0-18.0); LYMPH # 0.8 (1.2-3.4); LYMPH % 4.8 % (22.0-35.0); MEAN CELL VOLUME 91.3 fl (80.0-105.0); MEAN CORPUSCULAR HEMOGLOBIN 30.7 pg (25.0-35.0); MEAN CORPUSCULAR HGB CONC 33.7 g/dl (31.0-37.0); MEAN PLATELET VOLUME 8.9 fl (7.0-11.0); MONO # 1.8 (0.1-0.6); MONO % 10.3 % (1.0-6.0); PLATELET COUNT 318 10^3/uL (120.0-450.0); RBC 3.22 10^6/uL (3.5-6.1); RED CELL DISTRIBUTION WIDTH 14.9 % (11.5-14.5); WHITE BLOOD COUNT 17.6 10^3/ul (4.5-11.0)
[2017-11-27 07:06] LABS: ALB/GLOB RATIO 0.6 (1.1-1.8); ALBUMIN 2.2 g/dL (3.0-4.8); CALCIUM 7.4 mg/dL (8.4-10.5)
[2017-11-27] MEDS: Ergocalciferol 50,000 Intl Units Cap PO SCH (07:06)
[2017-11-27] MEDS: Insulin Reg-LOW-Coverage SC SCH ×4 (08:21→22:35)
[2017-11-27] MEDS: Metoprolol Succinate 25 mg XL Tab PO SCH (08:34)
[2017-11-27] MEDS: Pantoprazole 40 mg EC Tab PO SCH (08:34)
[2017-11-27 09:02] LABS: LYMPHOCYTE 7 % (22.0-35.0); MONOCYTE 6 % (1.0-6.0); NEUTROPHIL 87 % (50.0-70.0)
--- NOTE | 2017-11-27 11:58 | CP.PCM.PN ---
<María Bach - Last Filed: 11/27/17 11:54> Subjective - Date & Time of Evaluation Date of Evaluation: 11/27/17 Time of Evaluation: 11:25 - Subjective Subjective: Nephrology Progress Note for Dr. Clark Patient seen and examined at bedside. Patient reports of improving appetite and feeling well overall. Patient urinated last night, no reported difficulties. He also denies having shortness of breath. Objective - Vital Signs/Intake and Output Vital Signs (last 24 hours): Temp Pulse Resp BP Pulse Ox 97.9 F 119 H 17 100/51 L 93 L 11/27/17 08:08 11/27/17 10:00 11/27/17 08:08 11/27/17 08:34 11/27/17 08:08 Intake and Output: 11/27/17 11/27/17 06:59 18:59 Intake Total 120 Output Total 400 Balance -280 - Medications Medications: Current Medications Apixaban (Eliquis) 5 mg PO BID [facility] PRN Reason: Protocol Last Admin: 11/27/17 11:13 Dose: 5 mg Aspirin (Ecotrin) 81 mg PO DAILY [facility] Last Admin: 11/27/17 09:41 Dose: 81 mg Calcium Acetate (Phoslo) 1,334 mg PO WM [facility] Last Admin: 11/27/17 08:34 Dose: 1,334 mg Digoxin (Lanoxin) 0.25 mg PO QOTHERDAY@1400 [facility] Last Admin: 11/25/17 15:08 Dose: 0.25 mg Ergocalciferol (Drisdol 50,000 Intl Units Cap) 1 cap PO Q7D [facility] Last Admin: 11/27/17 07:06 Dose: 1 cap Levofloxacin/Dextrose (Levaquin 250mg) 250 mg in 50 mls @ 100 mls/hr IVPB 2000 [facility] Last Admin: 11/26/17 21:25 Dose: 100 mls/hr Insulin Human Regular (Humulin R Low) 0 units SC ACHS [facility] PRN Reason: Protocol Last Admin: 11/27/17 08:21 Dose: Not Given Levothyroxine Sodium (Synthroid) 25 mcg PO 0600 [facility] Last Admin: 11/27/17 06:13 Dose: 25 mcg Metoprolol Succinate (Toprol Xl) 12.5 mg PO BRK [facility] Last Admin: 11/27/17 08:34 Dose: 12.5 mg Pantoprazole Sodium (Protonix Ec Tab) 40 mg PO ACB [facility] Last Admin: 11/27/17 08:34 Dose: 40 mg Sodium Bicarbonate (Sodium Bicarbonate Tab) 1,300 mg PO TID [facility] Last Admin: 11/27/17 09:41 Dose: 1,300 mg Tamsulosin HCl (Flomax) 0.8 mg PO DAILY [facility] Last Admin: 11/27/17 09:42 Dose: 0.8 mg - Labs Labs: 11/27/17 06:45 11/27/17 06:45 PT 19.7 SECONDS (9.4-12.5) H 11/21/17 16:14 INR 1.71 (0.93-1.08) H 11/21/17 16:14 APTT 40.9 Seconds (25.1-36.5) H 11/21/17 16:14 - Additional Findings Additional findings: - Constitutional Appears: Non-toxic, No Acute Distress - Respiratory Exam Respiratory Exam: Clear to Ausculation Bilateral. absent: Respiratory Distress - Cardiovascular Exam Cardiovascular Exam: +S1, +S2. absent: Gallop - GI/Abdominal Exam GI & Abdominal Exam: Distended, Soft - Extremities Exam Additional comments: moderate leg edema, anasarca - Neurological Exam Neurological Exam: Alert, Awake - Psychiatric Exam Psychiatric exam: absent: Agitated - Skin Skin Exam: Warm. absent: Cyanosis Assessment and Plan - Assessment and Plan (Free Text) Assessment: Acute renal failure -MAGALY since past ~1 month; mild improvement with intravascular volume replenishment; -Flomax to 0.8 mg daily -continue B-Blockers and titrate up dose as tolerated; Urinary retention -Likely contributed by reflux nephropathy -High post-void residual on bladder US but no overt hydronephrosis; likely also a cardiorenal component, just started on B-blockers for CHF optimization -Renal Lasix scan ordered CHF -With severe systolic dysfunction; see above; holding off on diuretics for now Metabolic acidosis -On PO bicarb supplementation, continue Vitamin D deficiency -With elevated PTH in the setting of renal failure; continue ergocalciferol 50, 000 u weekly; <Tomas Clark - Last Filed: 11/28/17 06:38> Objective - Vital Signs/Intake and Output Vital Signs (last 24 hours): Temp Pulse Resp BP Pulse Ox 98.0 F 86 18 130/96 H 96 11/27/17 16:00 11/27/17 16:00 11/27/17 16:00 11/27/17 16:00 11/27/17 16:00 - Medications Medications: Current Medications Acetaminophen (Tylenol 325mg Tab) 650 mg PO TID PRN PRN Reason: Pain, moderate (4-7) Last Admin: 11/27/17 17:19 Dose: 650 mg Apixaban (Eliquis) 5 mg PO BID [facility] PRN Reason: Protocol Last Admin: 11/27/17 17:19 Dose: 5 mg Aspirin (Ecotrin) 81 mg PO DAILY [facility] Last Admin: 11/27/17 09:41 Dose: 81 mg Calcium Acetate (Phoslo) 1,334 mg PO WM [facility] Last Admin: 11/27/17 17:19 Dose: Not Given Digoxin (Lanoxin) 0.25 mg PO QOTHERDAY@1400 [facility] Last Admin: 11/27/17 14:43 Dose: 0.25 mg Ergocalciferol (Drisdol 50,000 Intl Units Cap) 1 cap PO Q7D [facility] Last Admin: 11/27/17 07:06 Dose: 1 cap Furosemide (Lasix) 40 mg IVP ONCE ONE Stop: 11/28/17 07:01 Levofloxacin/Dextrose (Levaquin 250mg) 250 mg in 50 mls @ 100 mls/hr IVPB 2000 [facility] Last Admin: 11/27/17 21:38 Dose: 100 mls/hr Insulin Human Regular (Humulin R Low) 0 units SC ACHS [facility] PRN Reason: Protocol Last Admin: 11/27/17 22:35 Dose: Not Given Levothyroxine Sodium (Synthroid) 25 mcg PO 0600 [facility] Last Admin: 11/28/17 05:39 Dose: 25 mcg Metoprolol Succinate (Toprol Xl) 12.5 mg PO BRK [facility] Last Admin: 11/27/17 08:34 Dose: 12.5 mg Pantoprazole Sodium (Protonix Ec Tab) 40 mg PO ACB [facility] Last Admin: 11/27/17 08:34 Dose: 40 mg Sodium Bicarbonate (Sodium Bicarbonate Tab) 1,300 mg PO TID [facility] Last Admin: 11/27/17 17:20 Dose: Not Given Tamsulosin HCl (Flomax) 0.8 mg PO DAILY [facility] Last Admin: 11/27/17 09:42 Dose: 0.8 mg - Labs Labs: 11/28/17 06:00 11/27/17 06:45 PT 19.7 SECONDS (9.4-12.5) H 11/21/17 16:14 INR 1.71 (0.93-1.08) H 11/21/17 16:14 APTT 40.9 Seconds (25.1-36.5) H 11/21/17 16:14 Assessment and Plan (1) Acute renal failure Status: Acute (2) CHF (congestive heart failure) Status: Chronic (3) Metabolic acidosis Status: Chronic (4) Vitamin D deficiency Status: Chronic Attending/Attestation - Attestation I have personally seen and examined this patient.: Yes I have fully participated in the care of the patient.: Yes I have reviewed all pertinent clinical information, including history, physical exam and plan: Yes Notes (Text): Patient seen and examined; I agree with the resident's note with the following edits/additions: Patient with advanced pancreatic CA, now s/p biliary drain removal and placement of stent; has had MAGALY since past 1+ month, likely multifactorial; some improvement seen with intravascular volume expansion but otherwise serum creatinine at relative plateau; Given large renal calculi, although non-obstructive on imaging and no hydronephrosis, will obtain renal lasix scan to r/o partial obstruction; -continue increased dose flomax at 0.8 mg daily; -continue B-blockers to optimize CHF status, will help correct cardiorenal component; -continue ergocalciferol (PTH elevated); -continue to avoid nephrotoxic agents; -hgb stable, will defer to heme regarding EPO given presence of large tumor burden
[2017-11-27] MEDS: Digoxin 250 mcg (0.25 mg) Tab PO SCH (14:43)
--- NOTE | 2017-11-27 16:23 | PN ---
DATE: 11/27/2017 CARDIOLOGY FOLLOWUP SUBJECTIVE: The patient is complaining of weakness and decreased appetite, but no shortness of breath, no palpitations. He is status post dilatation and stent grafting of his duct. PHYSICAL EXAMINATION: VITAL SIGNS: Blood pressure 100/51, the heart rate is 100, atrial fibrillation. NECK: Negative JVD. LUNGS: Decreased breath sounds. HEART: S1, S2. EXTREMITIES: Without edema. LABORATORY DATA: Hemoglobin is 9.9, white count is 17. Chemistries: BUN and creatinine 15 and 2.8. The glucose is 58. IMPRESSION: 1. Advanced pancreatic carcinoma. 2. Status post stent placement of the duct. 3. Chronic atrial fibrillation. 4. Anemia. 5. Depression. The patient was restarted on his Eliquis for his chronic atrial fibrillation. He is on low-dose beta-blockers for heart rate control and is currently receiving digoxin. Given these findings, we will continue his present medications as such. We will monitor his heart rate. We will discontinue his telemetry as per the patient's request. Terrence Yoder MD
--- NOTE | 2017-11-27 17:45 | CP.PCM.PN ---
Subjective - Date & Time of Evaluation Date of Evaluation: 11/27/17 Time of Evaluation: 15:30 - Subjective Subjective: Infectious Disease Follow Up: November 27, 2017 66 yo male with extensive PMHx of pancreatic cancer (on chemo, s/p gastrojejunostomy due to gastric outlet obstruction by Dr. Dsouza, and pancreatic stent placement by Dr. Dorantes, not a surgical candidate for pancreatic surgery), Atrial fibrillation, CAD, Right tinnitus, DM Type 2, and nephrolithiasis. Sent initially to [facility] for suicidal ideation. The last hospitalization at [facility], the patient had jaundice secondary to an obstructed stent and MAGALY. Discharged to [facility] on 11/01/2017 after IR percutaneous drainage and improvement in liver functions. He is no longer stating suicidal thoughts at this current times. Wound cultures showing E. Coli that was highly sensitive to most antibiotics. Was on Rocephin and switched to Levaquin for antibiotic treatment. Remains on Levaquin for treatment. Objective - Vital Signs/Intake and Output Vital Signs (last 24 hours): Temp Pulse Resp BP Pulse Ox 98.0 F 86 18 130/96 H 96 11/27/17 16:00 11/27/17 16:00 11/27/17 16:00 11/27/17 16:00 11/27/17 16:00 Intake and Output: 11/27/17 11/27/17 06:59 18:59 Intake Total 120 Output Total 400 Balance -280 - Medications Medications: Current Medications Acetaminophen (Tylenol 325mg Tab) 650 mg PO TID PRN PRN Reason: Pain, moderate (4-7) Last Admin: 11/27/17 17:19 Dose: 650 mg Apixaban (Eliquis) 5 mg PO BID [facility] PRN Reason: Protocol Last Admin: 11/27/17 17:19 Dose: 5 mg Aspirin (Ecotrin) 81 mg PO DAILY [facility] Last Admin: 11/27/17 09:41 Dose: 81 mg Calcium Acetate (Phoslo) 1,334 mg PO WM [facility] Last Admin: 11/27/17 17:19 Dose: Not Given Digoxin (Lanoxin) 0.25 mg PO QOTHERDAY@1400 [facility] Last Admin: 11/27/17 14:43 Dose: 0.25 mg Ergocalciferol (Drisdol 50,000 Intl Units Cap) 1 cap PO Q7D [facility] Last Admin: 11/27/17 07:06 Dose: 1 cap Furosemide (Lasix) 40 mg IVP ONCE ONE Stop: 11/28/17 07:01 Levofloxacin/Dextrose (Levaquin 250mg) 250 mg in 50 mls @ 100 mls/hr IVPB 1999 [facility] Last Admin: 11/26/17 21:25 Dose: 100 mls/hr Insulin Human Regular (Humulin R Low) 0 units SC ACHS [facility] PRN Reason: Protocol Last Admin: 11/27/17 11:56 Dose: Not Given Levothyroxine Sodium (Synthroid) 25 mcg PO 0600 [facility] Last Admin: 11/27/17 06:13 Dose: 25 mcg Metoprolol Succinate (Toprol Xl) 12.5 mg PO BRK [facility] Last Admin: 11/27/17 08:34 Dose: 12.5 mg Pantoprazole Sodium (Protonix Ec Tab) 40 mg PO ACB [facility] Last Admin: 11/27/17 08:34 Dose: 40 mg Sodium Bicarbonate (Sodium Bicarbonate Tab) 1,300 mg PO TID [facility] Last Admin: 11/27/17 17:20 Dose: Not Given Tamsulosin HCl (Flomax) 0.8 mg PO DAILY [facility] Last Admin: 11/27/17 09:42 Dose: 0.8 mg - Labs Labs: 11/27/17 06:45 11/27/17 06:45 PT 19.7 SECONDS (9.4-12.5) H 11/21/17 16:14 INR 1.71 (0.93-1.08) H 11/21/17 16:14 APTT 40.9 Seconds (25.1-36.5) H 11/21/17 16:14 - Constitutional Appears: Non-toxic, No Acute Distress, Chronically Ill - Head Exam Head Exam: ATRAUMATIC, NORMOCEPHALIC - Eye Exam Eye Exam: EOMI, PERRL Pupil Exam: NORMAL ACCOMODATION, PERRL - ENT Exam ENT Exam: Mucous Membranes Moist, Normal External Ear Exam, TM's Normal Bilaterally - Neck Exam Neck Exam: Full ROM, Normal Inspection - Respiratory Exam Respiratory Exam: Clear to Ausculation Bilateral, NORMAL BREATHING PATTERN. absent: Rales, Rhonchi, Wheezes - Cardiovascular Exam Cardiovascular Exam: REGULAR RHYTHM, RRR, +S1, +S2 - GI/Abdominal Exam GI & Abdominal Exam: Soft, Normal Bowel Sounds. absent: Distended, Tenderness - Extremities Exam Extremities Exam: Joint Swelling, Pedal Edema Additional comments: +2-3 overall edema of the legs. - Neurological Exam Neurological Exam: Alert, Awake, CN II-XII Intact, Oriented x3 - Psychiatric Exam Psychiatric exam: Normal Affect, Normal Mood - Skin Skin Exam: Intact, Normal Color Assessment and Plan - Assessment and Plan (Free Text) Assessment: 66 yo male with multiple medical issues including MAGALY, poor nutrition , CHF, FTT, and pancreatic cancer. The patient found to have E. coli in his left leg wounds. E. coli sensitive to Fluoroquinolones. Would consider Levaquin dosing despite renal issues given high bioavailability of drug even in its oral form and high tissue penetrance. The patient can be uncooperative at times. This can be due to the poor outlook of his pancreatic malignancy. Supportive care. Currently on Rocephin IV and Levaquin IV. Today the patient was calm and pleasant. Continue with Levaquin on regimen as the Rocephin will on 11/26/2017. The patient should receive up to 14 days of antibiotics. The patient's renal function should be monitored while on Levaquin. The patient can be switched to oral levaquin when he is ready for discharged. Local wound care. Thank you for allowing me to participate in the care of the patient, we will follow with you.
[2017-11-27] MEDS: levoFLOXacin 250 mg in D5W 250 MG/50 ML BAG IVPB SCH (21:38)
--- NOTE | 2017-11-28 02:24 | CON ---
DATE: HISTORY OF PRESENT ILLNESS: Subjectively, consult is called for known metastatic pancreatic cancer. The patient is a 66-year-old, well known to me since initial diagnosis of pancreatic cancer approximately 2 years ago, also known severe cardiomyopathy, has been getting Gemzar as well as Abraxane, and doing very well. Recently though the patient was admitted a few weeks ago with gastric outlet obstruction at that point and had a stent placed once again, was residing at a senior care, but he presents on this admission as he was noted to have acute renal failure as well as abdominal pain once again. He has not had any chemo in over a month at this point because of initial admission and subsequent subacute admission. He is now status post stent changed by IR as well as a repeat cardiac cath. He denies any other complaints at this point. He was not very happy with his situation at the senior care. PAST MEDICAL HISTORY: As above. Known history of cardiomyopathy, metastatic pancreatic cancer, gastrojejunostomy, esophageal polyp. He is a past smoker as well as alcohol abuse. He has had multiple cardiac stents. MEDICATIONS: As per the MAR. ALLERGIES: TAPE. FAMILY HISTORY: Noncontributory. REVIEW OF SYSTEMS: As per the HPI. PHYSICAL EXAMINATION VITAL SIGNS: Reveal a temperature of 97.9, pulse of 119, respiratory rate of 20, and a blood pressure of 100/51. GENERAL: The patient is an elderly pleasant male, lying in bed, in no acute distress. HEENT: Head and neck, normocephalic, atraumatic. Eyes, pupils equal, round, and reactive to light and accommodation. Extraocular muscles are intact. There is pallor. No icterus is noted. NECK: Supple with no adenopathy, no JVD, no thyromegaly. LUNGS: Decreased breath sounds bilaterally at the bases. CARDIOVASCULAR: S1 and S2 heard. ABDOMEN: Positive bowel sounds, soft, nontender, nondistended. No organomegaly is palpated. EXTREMITIES: There is some edema. LABORATORY DATA: Reveal a white count of 17.6, hemoglobin 9.9, hematocrit 29.4, and a platelet count of 318. Chemistries are within normal limits, except for an elevated BUN and creatinine of 62 and 2.8. His total bilirubin is now declining and is down to 1.8. LFTs are also much improved. ASSESSMENT: Elderly male with known metastatic pancreatic cancer, admitted with gastric outlet syndrome in the past, now recently had elevation of bilirubin, likely secondary to stent occlusion, now status post stent replacement done. His bilirubin and liver function tests have improved significantly, but now he also has acute renal failure, currently under the management of Nephrology for the above. He also has placement issues as he lives alone and has been unable to take care of himself once he is discharged from the hospital, currently awaiting placement once again. Overall, his disease has not progressed as rapidly as expected. We will repeat another PET scan as an outpatient prior to beginning any further chemotherapy. Long discussion with the patient as well as his family. Thank you for the consult. We will follow. Dalia Rey MD
--- NOTE | 2017-11-28 03:44 | PN ---
DATE: SUBJECTIVE: Patient is seen and examined on the bedside, looking comfortable. No nausea, vomiting, diarrhea. No hematuria or hematochezia. No swelling of the legs. No chest pain, no palpitation. No fever, no chills. Getting wound care. PHYSICAL EXAMINATION: VITAL SIGNS: Temperature 98, pulse 86, respiratory rate 18, blood pressure 150/90, pulse oximetry 96. HEENT: Head: Normocephalic and atraumatic. Eyes: PERRLA. Extraocular muscles are intact. Conjunctivae are clear. Nose is patent. Mucous membrane is moist. NECK: Supple. No carotid bruit. No JVD or thyromegaly. CHEST: Bilaterally symmetrical. HEART: S1 and S2 positive. LUNGS: Clear to auscultation. ABDOMEN: Soft. Bowel sounds present. No organomegaly. EXTREMITIES: No edema. No cyanosis. NEUROLOGIC: Patient is awake and alert. Moving all 4 extremities. No focal deficits. MEDICATIONS: Eliquis, Ecotrin, PhosLo, digoxin, vitamin D, Lasix, Levaquin, insulin, Synthroid, Toprol, Protonix, sodium bicarbonate, and Flomax. LABORATORY DATA: White blood cells 17.6, hemoglobin 9.9, hematocrit 29.4, and platelets 318. Sodium 135, potassium 4.5, BUN 62, creatinine 2.9, glucose 58. ASSESSMENT AND PLAN: Mr. Franky Campuzano is a 66-year-old male with leukocytosis; anemia; renal insufficiency; hypoglycemia; hypochloremia; has multiple medical problems including acute kidney injury, poor nutrition, congestive heart failure, pancreatic cancer, found to have Escherichia coli in the left leg wound. Escherichia coli sensitive to fluoroquinolone, getting antibiotics. Sometimes patient is anxious but other times he is very cooperative. Continue Levaquin and Rocephin will on 11/26/2017. Patient should receive up to 14 days of antibiotics. will be monitored while on Levaquin. Awaiting for rehab bed. Gastrointestinal and deep venous thrombosis prophylaxis. Repeat labs. We will follow up. Joy Nix MD: 11/27/2017 22:04:25 JACK
[2017-11-28] MEDS: Levothyroxine 25 MCG TAB PO SCH (05:39)
[2017-11-28 06:16] LABS: BASO # 0.02 K/mm3 (0.0-2.0); BASO % 0.1 % (0.0-3.0); EOS # 0.1 (0.0-0.7); EOS % 0.9 % (1.5-5.0); GRAN # 12.31 (1.4-6.5); GRAN % 81.6 % (50.0-68.0); HEMOGLOBIN 9.4 g/dL (14.0-18.0); LYMPH # 0.9 (1.2-3.4); LYMPH % 5.7 % (22.0-35.0); MEAN CELL VOLUME 91.5 fl (80.0-105.0); MEAN CORPUSCULAR HEMOGLOBIN 30.7 pg (25.0-35.0); MEAN CORPUSCULAR HGB CONC 33.6 g/dl (31.0-37.0); MEAN PLATELET VOLUME 8.7 fl (7.0-11.0); MONO # 1.8 (0.1-0.6); MONO % 11.7 % (1.0-6.0); RBC 3.06 10^6/uL (3.5-6.1); RED CELL DISTRIBUTION WIDTH 14.8 % (11.5-14.5); WHITE BLOOD COUNT 15.1 10^3/ul (4.5-11.0)
[2017-11-28 06:32] LABS: ALB/GLOB RATIO 0.6 (1.1-1.8); ALBUMIN 2.1 g/dL (3.0-4.8); CALCIUM 7.3 mg/dL (8.4-10.5)
[2017-11-28] MEDS: Insulin Reg-LOW-Coverage SC SCH ×4 (08:14→22:15)
[2017-11-28] MEDS: Metoprolol Succinate 25 mg XL Tab PO SCH (08:30)
[2017-11-28] MEDS: Pantoprazole 40 mg EC Tab PO SCH (08:30)
--- NOTE | 2017-11-28 13:02 | NM ---
PROCEDURE: Renal scan, flow study with diuretic. HISTORY: r/o partial ureteral obstruction (40 mg IV lasix) COMPARISON: 11/25/2017 renal ultrasound. Summary of findings on the comparison examination:Multiple renal calculi right kidney as above. There is a left parapelvic cyst and left upper pole calculus. No evidence of hydronephrosis. 10/24/2017 CT at hand and pelvis Summary of findings on the comparison examination:Large bilateral renal stones. TECHNIQUE: 13.3 mCi technetium 99 M Mag 3 administered intravenously. Diuretic dose 40 mg Lasix administered at minute 18. FINDINGS: Right Kidney: Flow component: Normal profusion to the right kidney Time to peak: 29.5 minutes Peak to T1/2 Peak: Not applicable Left Kidney: Flow component: Normal perfusion to the left kidney Time to peak: 29.5 minutes Peak to T1/2 Peak: Not applicable. Photon deficient areas consistent with large left renal cysts. Split Renal Function: Right kidney 62 % Left kidney renal failure on nonobstructing basis % IMPRESSION: 1. Failure of expected clearance before and after administration of diuretic. The overall appearance is not typical of bilateral obstructive uropathy, more likely to represent renal failure nonobstructing basis 2. Diminished function left kidney compared to the right.
--- NOTE | 2017-11-28 17:28 | CP.PCM.PN ---
Subjective - Date & Time of Evaluation Date of Evaluation: 11/28/17 Time of Evaluation: 16:45 - Subjective Subjective: Infectious Disease Follow Up: November 28, 2017 66 yo male with extensive PMHx of pancreatic cancer (on chemo, s/p gastrojejunostomy due to gastric outlet obstruction by Dr. Dsouza, and pancreatic stent placement by Dr. Dorantes, not a surgical candidate for pancreatic surgery), Atrial fibrillation, CAD, Right tinnitus, DM Type 2, and nephrolithiasis. Sent initially to [facility] from [facility] for suicidal ideation. The last hospitalization at [facility], the patient had jaundice secondary to an obstructed stent and MAGALY. Discharged to [facility] on 11/01/2017 after IR percutaneous drainage and improvement in liver functions. He is no longer stating suicidal thoughts at this current times. Wound cultures showing E. Coli that was highly sensitive to most antibiotics. Was on Rocephin and switched to Levaquin for antibiotic treatment. Remains on Levaquin for treatment. Noted Renal Scan. Can consider repeat urine cultures. No new complaint by the patient. Objective - Vital Signs/Intake and Output Vital Signs (last 24 hours): Temp Pulse Resp BP Pulse Ox 97.4 F L 82 20 102/57 L 96 11/28/17 06:00 11/28/17 08:30 11/28/17 06:00 11/28/17 09:58 11/28/17 06:00 - Medications Medications: Current Medications Acetaminophen (Tylenol 325mg Tab) 650 mg PO TID PRN PRN Reason: Pain, moderate (4-7) Last Admin: 11/27/17 17:19 Dose: 650 mg Apixaban (Eliquis) 5 mg PO BID [facility] PRN Reason: Protocol Last Admin: 11/28/17 11:16 Dose: 5 mg Aspirin (Ecotrin) 81 mg PO DAILY [facility] Last Admin: 11/28/17 11:16 Dose: 81 mg Calcium Acetate (Phoslo) 1,334 mg PO WM [facility] Last Admin: 11/28/17 11:35 Dose: Not Given Digoxin (Lanoxin) 0.25 mg PO QOTHERDAY@1400 [facility] Last Admin: 11/27/17 14:43 Dose: 0.25 mg Ergocalciferol (Drisdol 50,000 Intl Units Cap) 1 cap PO Q7D [facility] Last Admin: 11/27/17 07:06 Dose: 1 cap Levofloxacin/Dextrose (Levaquin 250mg) 250 mg in 50 mls @ 100 mls/hr IVPB 1999 [facility] Last Admin: 11/27/17 21:38 Dose: 100 mls/hr Insulin Human Regular (Humulin R Low) 0 units SC ACHS [facility] PRN Reason: Protocol Last Admin: 11/28/17 11:34 Dose: Not Given Levothyroxine Sodium (Synthroid) 25 mcg PO 0600 [facility] Last Admin: 11/28/17 05:39 Dose: 25 mcg Metoprolol Succinate (Toprol Xl) 12.5 mg PO BRK [facility] Last Admin: 11/28/17 08:30 Dose: 12.5 mg Pantoprazole Sodium (Protonix Ec Tab) 40 mg PO ACB [facility] Last Admin: 11/28/17 08:30 Dose: 40 mg Sodium Bicarbonate (Sodium Bicarbonate Tab) 1,300 mg PO TID [facility] Last Admin: 11/28/17 11:16 Dose: 1,300 mg Tamsulosin HCl (Flomax) 0.8 mg PO DAILY [facility] Last Admin: 11/28/17 11:16 Dose: 0.8 mg - Labs Labs: 11/28/17 06:00 11/28/17 06:00 PT 19.7 SECONDS (9.4-12.5) H 11/21/17 16:14 INR 1.71 (0.93-1.08) H 11/21/17 16:14 APTT 40.9 Seconds (25.1-36.5) H 11/21/17 16:14 - Constitutional Appears: Non-toxic, No Acute Distress, Chronically Ill - Head Exam Head Exam: ATRAUMATIC, NORMOCEPHALIC - Eye Exam Eye Exam: EOMI, PERRL Pupil Exam: NORMAL ACCOMODATION, PERRL - ENT Exam ENT Exam: Mucous Membranes Moist, Normal External Ear Exam, TM's Normal Bilaterally - Neck Exam Neck Exam: Full ROM, Normal Inspection - Respiratory Exam Respiratory Exam: Clear to Ausculation Bilateral, NORMAL BREATHING PATTERN. absent: Rales, Rhonchi, Wheezes - Cardiovascular Exam Cardiovascular Exam: REGULAR RHYTHM, RRR, +S1, +S2 - GI/Abdominal Exam GI & Abdominal Exam: Soft, Normal Bowel Sounds. absent: Distended, Tenderness - Extremities Exam Extremities Exam: Joint Swelling, Pedal Edema Additional comments: +2-3 overall edema of the legs. - Neurological Exam Neurological Exam: Alert, Awake, CN II-XII Intact, Oriented x3 - Psychiatric Exam Psychiatric exam: Normal Affect, Normal Mood - Skin Skin Exam: Intact, Normal Color Assessment and Plan - Assessment and Plan (Free Text) Assessment: 66 yo male with multiple medical issues including MAGALY, poor nutrition , CHF, FTT, and pancreatic cancer. The patient found to have E. coli in his left leg wounds. E. coli sensitive to Fluoroquinolones. Would consider Levaquin dosing despite renal issues given high bioavailability of drug even in its oral form and high tissue penetrance. The patient can be uncooperative at times. This can be due to the poor outlook of his pancreatic malignancy. Supportive care. Currently on Rocephin IV and Levaquin IV. Today the patient was calm and pleasant. Continue with Levaquin on regimen as the Rocephin will on 11/26/2017. The creatinine has increased to 3.2. Will stop Levaquin and restart Rocephin for antibiotic coverage. Local wound care. Noted the pateint is being evaluated for the renal failure. Thank you for allowing me to participate in the care of the patient, we will follow with you.
--- NOTE | 2017-11-28 17:58 | PN ---
DATE: 11/28/2017 CARDIOLOGY FOLLOWUP SUBJECTIVE: The patient is comfortable. No shortness of breath. PHYSICAL EXAMINATION: GENERAL: Blood pressure is 102/57, the heart rates in the 80s. NECK: Negative JVD. LUNGS: Decreased breath sounds without rales. HEART: Reveals S1, S2. EXTREMITIES: Without edema. LABORATORY DATA: BUN and creatinine 70 and 3.2. Hemoglobin 9.4. IMPRESSION: 1. Pancreatic carcinoma. 2. Chronic atrial fibrillation. 3. Anemia. 4. Weakness. 5. Depression. The patient is after his test. He is able to take some p.o. lunch. Currently, the heart rate is stable. Terrence Yoder MD
[2017-11-28 22:02] LABS: PH,URINE 5.5 (4.7-8.0); URINE BILIRUBIN NEGATIVE (NEGATIVE); URINE BLOOD LARGE (NEGATIVE); URINE GLUCOSE (UA) NEGATIVE (NEGATIVE); URINE LEUKOCYTE ESTERASE MODERATE Leu/uL (NEGATIVE); URINE PROTEIN 30 mg/dL (<30 mg/dL); URINE UROBILINOGEN 0.2 E.U./dL (<1 E.U./dL)
[2017-11-28 22:03] LABS: URINE APPEARANCE SL CLOUDY (CLEAR); URINE COLOR YELLOW (YELLOW)
[2017-11-28 22:10] LABS: URINE BACTERIA MOD (NEG); URINE RBC TNTC /hpf (0-2)
[2017-11-29] MEDS: Levothyroxine 25 MCG TAB PO SCH (06:10)
--- NOTE | 2017-11-29 06:18 | CP.PCM.PN ---
Subjective - Date & Time of Evaluation Date of Evaluation: 11/28/17 Time of Evaluation: 12:00 - Subjective Subjective: Patient s/p renal lasix scan this morning; tolerating diet; no shortness of breath; didn't urinate after being given lasix IV 40 mg during test; Objective - Vital Signs/Intake and Output Vital Signs (last 24 hours): Temp Pulse Resp BP Pulse Ox 97.3 F L 82 20 113/70 97 11/28/17 16:30 11/28/17 08:30 11/28/17 16:30 11/28/17 16:30 11/28/17 16:30 Intake and Output: 11/28/17 11/29/17 18:59 06:59 Intake Total 120 Output Total 100 Balance 20 - Medications Medications: Current Medications Acetaminophen (Tylenol 325mg Tab) 650 mg PO TID PRN PRN Reason: Pain, moderate (4-7) Last Admin: 11/27/17 17:19 Dose: 650 mg Apixaban (Eliquis) 5 mg PO BID [facility] PRN Reason: Protocol Last Admin: 11/28/17 18:04 Dose: 5 mg Aspirin (Ecotrin) 81 mg PO DAILY [facility] Last Admin: 11/28/17 11:16 Dose: 81 mg Calcium Acetate (Phoslo) 1,334 mg PO WM [facility] Last Admin: 11/28/17 18:04 Dose: Not Given Digoxin (Lanoxin) 0.25 mg PO QOTHERDAY@1400 [facility] Last Admin: 11/27/17 14:43 Dose: 0.25 mg Ergocalciferol (Drisdol 50,000 Intl Units Cap) 1 cap PO Q7D [facility] Last Admin: 11/27/17 07:06 Dose: 1 cap Ceftriaxone Sodium (Rocephin 1 Gram Ivpb) 1 gm in 100 mls @ 100 mls/hr IVPB DAILY [facility] PRN Reason: Protocol Insulin Human Regular (Humulin R Low) 0 units SC ACHS [facility] PRN Reason: Protocol Last Admin: 11/28/17 22:15 Dose: Not Given Levothyroxine Sodium (Synthroid) 25 mcg PO 0600 [facility] Last Admin: 11/28/17 05:39 Dose: 25 mcg Metoprolol Succinate (Toprol Xl) 12.5 mg PO BRK [facility] Last Admin: 11/28/17 08:30 Dose: 12.5 mg Pantoprazole Sodium (Protonix Ec Tab) 40 mg PO ACB [facility] Last Admin: 11/28/17 08:30 Dose: 40 mg Sodium Bicarbonate (Sodium Bicarbonate Tab) 1,300 mg PO TID [facility] Last Admin: 11/28/17 18:04 Dose: Not Given Tamsulosin HCl (Flomax) 0.8 mg PO DAILY [facility] Last Admin: 11/28/17 11:16 Dose: 0.8 mg - Labs Labs: 11/28/17 06:00 11/28/17 06:00 PT 19.7 SECONDS (9.4-12.5) H 11/21/17 16:14 INR 1.71 (0.93-1.08) H 11/21/17 16:14 APTT 40.9 Seconds (25.1-36.5) H 11/21/17 16:14 - Constitutional Appears: Non-toxic, Chronically Ill - ENT Exam ENT Exam: Mucous Membranes Moist - Respiratory Exam Respiratory Exam: Clear to Ausculation Bilateral. absent: Respiratory Distress - Cardiovascular Exam Cardiovascular Exam: Gallop, +S1, +S2 - GI/Abdominal Exam GI & Abdominal Exam: Soft. absent: Distended, Tenderness - Extremities Exam Additional comments: moderately edematous, anasarca; - Neurological Exam Neurological Exam: Alert, Awake - Psychiatric Exam Psychiatric exam: Normal Mood. absent: Agitated - Skin Skin Exam: Warm. absent: Cyanosis Assessment and Plan (1) Acute renal failure Assessment & Plan: MAGALY, serum creatinine again increasing s/p biliary stent placement and drain removal, likely due to some degree of contrast that reached systemic circulation ; renal lasix scan not showing obstruction; Relatively stable electrolyte status (mild metabolic acidosis noted); need to monitor volume status carefully given severe CHF status; -continue to avoid nephrotoxic agents -holding off on diuretics for now -continue to optimize CHF status with B-blockers -continue sodium bicarb PO, phoslo w/ meals; Status: Acute (2) CHF (congestive heart failure) Assessment & Plan: See above; Status: Chronic (3) Metabolic acidosis Assessment & Plan: see above; Status: Chronic (4) Vitamin D deficiency Assessment & Plan: continue ergocalciferol; Status: Chronic
[2017-11-29] MEDS: Insulin Reg-LOW-Coverage SC SCH ×4 (08:25→21:25)
[2017-11-29] MEDS: Pantoprazole 40 mg EC Tab PO SCH (08:28)
[2017-11-29] MEDS: Metoprolol Succinate 25 mg XL Tab PO SCH (08:28)
--- NOTE | 2017-11-29 08:39 | PN ---
DATE: 11/28/2017 SUBJECTIVE: The patient was seen and examined on the bedside, looking comfortable. No nausea, vomiting or diarrhea. No fever, no chills. No headache, no dizziness. No chest pain, no palpitation. No hematuria, no hematochezia. PHYSICAL EXAMINATION VITAL SIGNS: Temperature 97.4, pulse 88, respiratory rate 20, blood pressure 102/57, pulse oximetry of 96. HEENT: Head is normocephalic, atraumatic. Eyes, PERRLA. Extraocular muscles are intact. Conjunctivae clear. Nose patent. Mucous membranes moist. NECK: Supple. No carotid bruit. No JVD or thyromegaly. CHEST: Bilaterally symmetrical. HEART: S1 and S2 positive. LUNGS: Clear to auscultation. ABDOMEN: Soft. Bowel sounds present. No organomegaly. EXTREMITIES: No edema. No cyanosis. NEUROLOGIC: The patient is awake and alert. Moving all four extremities. No focal deficits. MEDICATIONS: Tylenol, Eliquis, Ecotrin, PhosLo, Lanoxin, vitamin D, Synthroid, Toprol, Protonix, NS, Flomax. LABORATORY DATA: White blood cell is 15.1, hemoglobin 9.4, hematocrit 28, platelet 292. Sodium 134, potassium 4.7, BUN 70, creatinine 3.2, glucose 75. ASSESSMENT AND PLAN: Mr. Franky Campuzano is a 66-year-old male with leukopenia, anemia, renal insufficiency, trending up, has multiple medical issues including acute kidney injury, poor nutrition, congestive heart failure, pancreatic cancer, had Escherichia coli in his left leg wound. Escherichia coli is sensitive to fluoroquinolone. We will consider Levaquin depending on the culture and sensitivity. Patient is uncooperative at certain times, but most of the time, is cooperative. The plan is to send the patient to [facility], but renal function test is not improving. renal scan and nuclear by the hose turner after administration of the bilateral obstructive uropathy. We will likely left kidney compared to the right. Gastrointestinal and deep venous thrombosis prophylaxis. Repeat labs. We will follow up. Joy Nix MD [facility] # [id number] MTDD
[2017-11-29] MEDS: cefTRIAXone 1 gm 1 GM/100 ML BAG IVPB SCH (10:13)
[2017-11-29 11:37] LABS: BASO # 0.02 K/mm3 (0.0-2.0); BASO % 0.1 % (0.0-3.0); EOS # 0.1 (0.0-0.7); EOS % 0.7 % (1.5-5.0); GRAN # 14.8 (1.4-6.5); GRAN % 84.5 % (50.0-68.0); HEMOGLOBIN 9.7 g/dL (14.0-18.0); LYMPH # 0.8 (1.2-3.4); LYMPH % 4.6 % (22.0-35.0); MEAN CELL VOLUME 90.7 fl (80.0-105.0); MEAN CORPUSCULAR HGB CONC 34.2 g/dl (31.0-37.0); MEAN PLATELET VOLUME 8.6 fl (7.0-11.0); MONO # 1.8 (0.1-0.6); MONO % 10.1 % (1.0-6.0); RBC 3.13 10^6/uL (3.5-6.1); RED CELL DISTRIBUTION WIDTH 14.7 % (11.5-14.5); WHITE BLOOD COUNT 17.5 10^3/ul (4.5-11.0)
[2017-11-29 11:48] LABS: ALB/GLOB RATIO 0.6 (1.1-1.8); ALBUMIN 2.2 g/dL (3.0-4.8); CALCIUM 7.2 mg/dL (8.4-10.5)
--- NOTE | 2017-11-29 12:45 | CP.PCM.PN ---
<María Bach - Last Filed: 11/29/17 12:41> Subjective - Date & Time of Evaluation Date of Evaluation: 11/29/17 Time of Evaluation: 11:30 - Subjective Subjective: Nephrology progress note for Dr. Clark Patient seen and examined at bedside. Patient had refused lab draws in the morning. Patient reports to pass small amount of urine throughout yesterday. He denies having pain or burning sensation while urinating. Objective - Vital Signs/Intake and Output Vital Signs (last 24 hours): Temp Pulse Resp BP Pulse Ox 97.3 F L 82 20 112/68 97 11/28/17 16:30 11/29/17 08:28 11/28/17 16:30 11/29/17 08:28 11/28/17 16:30 Intake and Output: 11/29/17 11/29/17 06:59 18:59 Intake Total 120 120 Output Total 100 200 Balance 20 -80 - Medications Medications: Current Medications Acetaminophen (Tylenol 325mg Tab) 650 mg PO TID PRN PRN Reason: Pain, moderate (4-7) Last Admin: 11/27/17 17:19 Dose: 650 mg Apixaban (Eliquis) 5 mg PO BID [facility] PRN Reason: Protocol Last Admin: 11/29/17 10:12 Dose: 5 mg Aspirin (Ecotrin) 81 mg PO DAILY [facility] Last Admin: 11/29/17 10:12 Dose: 81 mg Calcium Acetate (Phoslo) 1,334 mg PO WM [facility] Last Admin: 11/29/17 12:24 Dose: Not Given Digoxin (Lanoxin) 0.25 mg PO QOTHERDAY@1400 [facility] Last Admin: 11/27/17 14:43 Dose: 0.25 mg Ergocalciferol (Drisdol 50,000 Intl Units Cap) 1 cap PO Q7D [facility] Last Admin: 11/27/17 07:06 Dose: 1 cap Ceftriaxone Sodium (Rocephin 1 Gram Ivpb) 1 gm in 100 mls @ 100 mls/hr IVPB DAILY [facility] PRN Reason: Protocol Last Admin: 11/29/17 10:13 Dose: 100 mls/hr Insulin Human Regular (Humulin R Low) 0 units SC ACHS [facility] PRN Reason: Protocol Last Admin: 11/29/17 08:25 Dose: Not Given Levothyroxine Sodium (Synthroid) 25 mcg PO 0600 [facility] Last Admin: 11/29/17 06:10 Dose: Not Given Metoprolol Succinate (Toprol Xl) 12.5 mg PO BRK [facility] Last Admin: 11/29/17 08:28 Dose: 12.5 mg Pantoprazole Sodium (Protonix Ec Tab) 40 mg PO ACB [facility] Last Admin: 11/29/17 08:28 Dose: 40 mg Sodium Bicarbonate (Sodium Bicarbonate Tab) 1,300 mg PO TID [facility] Last Admin: 11/29/17 10:12 Dose: Not Given Tamsulosin HCl (Flomax) 0.8 mg PO DAILY [facility] Last Admin: 11/29/17 10:12 Dose: 0.8 mg - Labs Labs: 11/29/17 11:30 11/29/17 11:30 PT 19.7 SECONDS (9.4-12.5) H 11/21/17 16:14 INR 1.71 (0.93-1.08) H 11/21/17 16:14 APTT 40.9 Seconds (25.1-36.5) H 11/21/17 16:14 - Additional Findings Additional findings: - Constitutional Appears: Non-toxic, Chronically Ill - ENT Exam ENT Exam: Mucous Membranes Moist - Respiratory Exam Respiratory Exam: Clear to Ausculation Bilateral. absent: Respiratory Distress - Cardiovascular Exam Cardiovascular Exam: Gallop, +S1, +S2 - GI/Abdominal Exam GI & Abdominal Exam: Soft. absent: Distended, Tenderness - Extremities Exam Additional comments: moderately edematous, anasarca; - Neurological Exam Neurological Exam: Alert, Awake - Psychiatric Exam Psychiatric exam: Normal Mood. absent: Agitated - Skin Skin Exam: Warm. absent: Cyanosis Assessment and Plan - Assessment and Plan (Free Text) Assessment: (1) Acute renal failure Assessment & Plan: MAGALY, serum creatinine again increasing s/p biliary stent placement and drain removal, likely due to some degree of contrast that reached systemic circulation ; renal lasix scan not showing obstruction; Relatively stable electrolyte status (mild metabolic acidosis noted); need to monitor volume status carefully given severe CHF status; -continue to avoid nephrotoxic agents -holding off on diuretics for now -continue to optimize CHF status with B-blockers -continue sodium bicarb PO, phoslo w/ meals; -F/u urinalysis, urine culture -Bladder scan, straight cath as needed Status: Acute (2) CHF (congestive heart failure) Assessment & Plan: See above; Status: Chronic (3) Metabolic acidosis Assessment & Plan: see above; Status: Chronic (4) Vitamin D deficiency Assessment & Plan: continue ergocalciferol; Status: Chronic <Tomas Clark - Last Filed: 11/29/17 18:16> Objective - Vital Signs/Intake and Output Vital Signs (last 24 hours): Temp Pulse Resp BP Pulse Ox 97.6 F 82 85 H 106/74 95 11/29/17 16:00 11/29/17 08:28 11/29/17 16:00 11/29/17 16:00 11/29/17 16:00 Intake and Output: 11/29/17 11/29/17 06:59 18:59 Intake Total 120 120 Output Total 100 200 Balance 20 -80 - Medications Medications: Current Medications Acetaminophen (Tylenol 325mg Tab) 650 mg PO TID PRN PRN Reason: Pain, moderate (4-7) Last Admin: 11/27/17 17:19 Dose: 650 mg Apixaban (Eliquis) 5 mg PO BID [facility] PRN Reason: Protocol Last Admin: 11/29/17 10:12 Dose: 5 mg Aspirin (Ecotrin) 81 mg PO DAILY [facility] Last Admin: 11/29/17 10:12 Dose: 81 mg Calcium Acetate (Phoslo) 1,334 mg PO WM [facility] Last Admin: 11/29/17 12:24 Dose: Not Given Digoxin (Lanoxin) 0.25 mg PO QOTHERDAY@1400 [facility] Last Admin: 11/29/17 14:24 Dose: 0.25 mg Ergocalciferol (Drisdol 50,000 Intl Units Cap) 1 cap PO Q7D [facility] Last Admin: 11/27/17 07:06 Dose: 1 cap Ceftriaxone Sodium (Rocephin 1 Gram Ivpb) 1 gm in 100 mls @ 100 mls/hr IVPB DAILY [facility] PRN Reason: Protocol Last Admin: 11/29/17 10:13 Dose: 100 mls/hr Insulin Human Regular (Humulin R Low) 0 units SC ACHS [facility] PRN Reason: Protocol Last Admin: 11/29/17 17:34 Dose: Not Given Levothyroxine Sodium (Synthroid) 25 mcg PO 0600 [facility] Last Admin: 11/29/17 06:10 Dose: Not Given Metoprolol Succinate (Toprol Xl) 12.5 mg PO BRK [facility] Last Admin: 11/29/17 08:28 Dose: 12.5 mg Pantoprazole Sodium (Protonix Ec Tab) 40 mg PO ACB [facility] Last Admin: 11/29/17 08:28 Dose: 40 mg Sodium Bicarbonate (Sodium Bicarbonate Tab) 1,300 mg PO TID [facility] Last Admin: 11/29/17 13:57 Dose: Not Given Tamsulosin HCl (Flomax) 0.8 mg PO DAILY [facility] Last Admin: 11/29/17 10:12 Dose: 0.8 mg - Labs Labs: 11/29/17 11:30 11/29/17 11:30 PT 19.7 SECONDS (9.4-12.5) H 11/21/17 16:14 INR 1.71 (0.93-1.08) H 11/21/17 16:14 APTT 40.9 Seconds (25.1-36.5) H 11/21/17 16:14 Assessment and Plan (1) Acute renal failure Status: Acute (2) CHF (congestive heart failure) Status: Chronic (3) Metabolic acidosis Status: Chronic (4) Vitamin D deficiency Status: Chronic Attending/Attestation - Attestation I have personally seen and examined this patient.: Yes I have fully participated in the care of the patient.: Yes I have reviewed all pertinent clinical information, including history, physical exam and plan: Yes Notes (Text): Patient seen and examined; I agree with the resident's note as above with the following additions/edits: Patient with terminal pancreatic CA, admitted initially with reported suicidal ideation, being followed by our renal service for MAGALY; MAGALY has persisted since past 1+ month with serum creatinine increase from ~1.0 - > 3; renal function had stabilized but again worsening over past 3 days s/p biliary stent placement and removal of drain; complicated by urinary retention and CHF w/ severe systolic dysfunction/mitral regurg; Patient has compensated CHF when at rest although with anasarca and dyspnea on mild exertion, situation complicated by MAGALY; recently started on B-eriberto; Serum creatinine increasing slowly but lytes stable and no respiratory distress ; no need for HD at this point and given patient's terminal condition, aggressive measures not warranted; -continue to monitor renal function and electrolytes daily; continue PO sodium bicarb if patient tolerates; -continue B-blockers to optimize cardiac status; if CHF status decompensates, can try high doses of IV diuretics (at least 80-100 mg, had no response to 40 mg during lasix renal scan study); -agree with letting patient have regular diet given terminal condition; -bladder scan to assess post-void residual volume; straight cath if needed; -continue to avoid nephrotoxic agents; 11/29/17 18:04
[2017-11-29] MEDS: Digoxin 250 mcg (0.25 mg) Tab PO SCH (14:24)
--- NOTE | 2017-11-29 22:12 | CP.PCM.PN ---
Subjective - Date & Time of Evaluation Date of Evaluation: 11/29/17 Time of Evaluation: 20:00 - Subjective Subjective: Infectious Disease Follow Up: November 29, 2017 66 yo male with extensive PMHx of pancreatic cancer (on chemo, s/p gastrojejunostomy due to gastric outlet obstruction by Dr. Dsouza, and pancreatic stent placement by Dr. Dorantes, not a surgical candidate for pancreatic surgery), Atrial fibrillation, CAD, Right tinnitus, DM Type 2, and nephrolithiasis. [place] [facility] [place] [facility] for [place] ideation. The [place] [facility] the patient had jaundice secondary to an obstructed stent and MAGALY. Discharged to [facility] on 11/01/2017 after IR percutaneous drainage and improvement in liver functions. He is no longer stating suicidal thoughts at this current times. Wound cultures showing E. Coli that was highly sensitive to most antibiotics. Was on Rocephin and switched to Levaquin for antibiotic treatment. Remains on Levaquin for treatment. Noted Renal Scan. Can consider repeat urine cultures. No new complaint by the patient. Creatinine at 3.5 today. Objective - Vital Signs/Intake and Output Vital Signs (last 24 hours): Temp Pulse Resp BP Pulse Ox 97.6 F 82 85 H 106/74 95 11/29/17 16:00 11/29/17 08:28 11/29/17 16:00 11/29/17 16:00 11/29/17 16:00 Intake and Output: 11/29/17 11/30/17 18:59 06:59 Intake Total 120 Output Total 200 Balance -80 - Medications Medications: Current Medications Acetaminophen (Tylenol 325mg Tab) 650 mg PO TID PRN PRN Reason: Pain, moderate (4-7) Last Admin: 11/27/17 17:19 Dose: 650 mg Apixaban (Eliquis) 5 mg PO BID [facility] PRN Reason: Protocol Last Admin: 11/29/17 18:36 Dose: 5 mg Aspirin (Ecotrin) 81 mg PO DAILY [facility] Last Admin: 11/29/17 10:12 Dose: 81 mg Calcium Acetate (Phoslo) 1,334 mg PO WM [facility] Last Admin: 11/29/17 18:34 Dose: Not Given Digoxin (Lanoxin) 0.25 mg PO QOTHERDAY@1400 [facility] Last Admin: 11/29/17 14:24 Dose: 0.25 mg Ergocalciferol (Drisdol 50,000 Intl Units Cap) 1 cap PO Q7D [facility] Last Admin: 11/27/17 07:06 Dose: 1 cap Ceftriaxone Sodium (Rocephin 1 Gram Ivpb) 1 gm in 100 mls @ 100 mls/hr IVPB DAILY [facility] PRN Reason: Protocol Last Admin: 11/29/17 10:13 Dose: 100 mls/hr Insulin Human Regular (Humulin R Low) 0 units SC ACHS [facility] PRN Reason: Protocol Last Admin: 11/29/17 21:25 Dose: Not Given Levothyroxine Sodium (Synthroid) 25 mcg PO 0600 [facility] Last Admin: 11/29/17 06:10 Dose: Not Given Metoprolol Succinate (Toprol Xl) 12.5 mg PO BRK [facility] Last Admin: 11/29/17 08:28 Dose: 12.5 mg Pantoprazole Sodium (Protonix Ec Tab) 40 mg PO ACB [facility] Last Admin: 11/29/17 08:28 Dose: 40 mg Sodium Bicarbonate (Sodium Bicarbonate Tab) 1,300 mg PO TID [facility] Last Admin: 11/29/17 18:35 Dose: Not Given Tamsulosin HCl (Flomax) 0.8 mg PO DAILY [facility] Last Admin: 11/29/17 10:12 Dose: 0.8 mg - Labs Labs: 11/29/17 11:30 11/29/17 11:30 PT 19.7 SECONDS (9.4-12.5) H 11/21/17 16:14 INR 1.71 (0.93-1.08) H 11/21/17 16:14 APTT 40.9 Seconds (25.1-36.5) H 11/21/17 16:14 - Constitutional Appears: Non-toxic, No Acute Distress, Chronically Ill - Head Exam Head Exam: ATRAUMATIC, NORMOCEPHALIC - Eye Exam Eye Exam: EOMI, PERRL Pupil Exam: NORMAL ACCOMODATION, PERRL - ENT Exam ENT Exam: Mucous Membranes Moist, Normal External Ear Exam, TM's Normal Bilaterally - Neck Exam Neck Exam: Full ROM, Normal Inspection - Respiratory Exam Respiratory Exam: Clear to Ausculation Bilateral, NORMAL BREATHING PATTERN. absent: Rales, Rhonchi, Wheezes - Cardiovascular Exam Cardiovascular Exam: REGULAR RHYTHM, RRR, +S1, +S2 - GI/Abdominal Exam GI & Abdominal Exam: Soft, Normal Bowel Sounds. absent: Distended, Tenderness - Extremities Exam Extremities Exam: Joint Swelling, Pedal Edema Additional comments: +2-3 overall edema of the legs. - Neurological Exam Neurological Exam: Alert, Awake, CN II-XII Intact, Oriented x3 - Psychiatric Exam Psychiatric exam: Normal Affect, Normal Mood - Skin Skin Exam: Intact, Normal Color Assessment and Plan - Assessment and Plan (Free Text) Assessment: 66 yo male with multiple medical issues including MAGALY, poor nutrition , CHF, FTT, and pancreatic cancer. The patient found to have E. coli in his left leg wounds. E. coli sensitive to Fluoroquinolones. Would consider Levaquin dosing despite renal issues given high bioavailability of drug even in its oral form and high tissue penetrance. The patient can be uncooperative at times. This can be due to the poor outlook of his pancreatic malignancy. Supportive care. Currently on Rocephin IV and Levaquin IV. Today the patient was calm and pleasant. The creatinine has continued to increase to 3.5. Stopped Levaquin and restarted Rocephin for antibiotic coverage yesterday. Local wound care. Noted the pateint is being evaluated for the renal failure. Thank you for allowing me to participate in the care of the patient, we will follow with you.
--- NOTE | 2017-11-30 04:49 | PN ---
DATE: <11/29/2017> SUBJECTIVE: The patient is seen and examined at the bedside, looking comfortable, but wants regular diet, does not want diabetic or renal diet. Refusing many testing, wants just few testing. Denies having pain or burning sensation while urination; but as per Dr. Clark, patient reports to pass small amount of urine throughout yesterday. PHYSICAL EXAMINATION: VITAL SIGNS: Temperature 97.3, pulse 82, respiratory rate 20, blood pressure 112/68, pulse oximetry 97. HEENT: Head: Normocephalic and atraumatic. Eyes: PERRLA. Extraocular muscles are intact. Conjunctivae are clear. Nose is patent. NECK: Supple. No carotid bruit. No JVD or thyromegaly. CHEST: Bilaterally symmetrical. HEART: S1 and S2 positive. LUNGS: Clear to auscultation. ABDOMEN: Soft. Bowel sounds present. No organomegaly. EXTREMITIES: No edema. No cyanosis. NEUROLOGICAL: The patient is awake and alert, moving all 4 extremities. No focal deficits. MEDICATIONS: Tylenol, Eliquis, Ecotrin, PhosLo, Lanoxin, vitamin D, Rocephin, insulin, levothyroxine, Toprol, Protonix, NS, Flomax. LABORATORY DATA: White blood cells 17.5, hemoglobin 9.7, hematocrit 28.4, and platelets 292. Sodium 131, potassium 4.5, BUN 74, creatinine 3.5, glucose 100. ASSESSMENT AND PLAN: Mr. Franky Campuzano is a 66-year-old male with acute renal failure, congestive heart failure, metabolic acidosis, vitamin D deficiency, leukocytosis, anemia, hyponatremia, history of pancreatic cancer with metastasis - on chemotherapy, status post gastrojejunostomy due to gastric outlet obstruction, atrial fibrillation, coronary artery disease, right tinnitus, history of nephrolithiasis. Continue Rocephin and Levaquin. continued to increase. Stop Levaquin and restart Rocephin for antibiotic coverage yesterday as per Infectious Disease, Dr. Sexton. Local wound care of the leg. Gastrointestinal and deep vein thrombosis prophylaxis. Repeat labs. We will follow up. Discussion done with patient's nurse, Beth. All questions answered. Joy Nix MD DD: <11/29/2017> 23:24:38 [facility] # [id number] JACK
[2017-11-30] MEDS: Levothyroxine 25 MCG TAB PO SCH (05:22)
[2017-11-30] MEDS ORDERED: Sodium Chloride 0.9% 500 ML IV STA (05:56)
--- NOTE | 2017-11-30 06:03 | CP.PCM.PN ---
Subjective - Date & Time of Evaluation Date of Evaluation: 11/30/17 Time of Evaluation: 05:57 - Subjective Subjective: Patient was seen at bedside for BP 85/54. Heart rate is 88/min. RR 14/min.,afebrile. Has no complaints . Denies chest pain, sob, nausea , sweating, vomiting, diarrhoea, blood in stool , hemetemesis. Medical record was reviewed. 66 year old white male was admitted because he was sad at the [facility]. PMH of CAD with stent,atrial fibrillation, DM II, pancreatic cancer , S/P chemotherapy, nephrolithiasis, tinitus. Objective - Vital Signs/Intake and Output Vital Signs (last 24 hours): Temp Pulse Resp BP Pulse Ox 97.6 F 82 85 H 106/74 95 11/29/17 16:00 11/29/17 08:28 11/29/17 16:00 11/29/17 16:00 11/29/17 16:00 Intake and Output: 11/29/17 11/30/17 18:59 06:59 Intake Total 120 120 Output Total 200 Balance -80 120 - Medications Medications: Current Medications Acetaminophen (Tylenol 325mg Tab) 650 mg PO TID PRN PRN Reason: Pain, moderate (4-7) Last Admin: 11/27/17 17:19 Dose: 650 mg Apixaban (Eliquis) 5 mg PO BID [facility] PRN Reason: Protocol Last Admin: 11/29/17 18:36 Dose: 5 mg Aspirin (Ecotrin) 81 mg PO DAILY [facility] Last Admin: 11/29/17 10:12 Dose: 81 mg Calcium Acetate (Phoslo) 1,334 mg PO WM [facility] Last Admin: 11/29/17 18:34 Dose: Not Given Digoxin (Lanoxin) 0.25 mg PO QOTHERDAY@1400 [facility] Last Admin: 11/29/17 14:24 Dose: 0.25 mg Ergocalciferol (Drisdol 50,000 Intl Units Cap) 1 cap PO Q7D [facility] Last Admin: 11/27/17 07:06 Dose: 1 cap Ceftriaxone Sodium (Rocephin 1 Gram Ivpb) 1 gm in 100 mls @ 100 mls/hr IVPB DAILY [facility] PRN Reason: Protocol Last Admin: 11/29/17 10:13 Dose: 100 mls/hr Insulin Human Regular (Humulin R Low) 0 units SC ACHS [facility] PRN Reason: Protocol Last Admin: 11/29/17 21:25 Dose: Not Given Levothyroxine Sodium (Synthroid) 25 mcg PO 0600 [facility] Last Admin: 11/30/17 05:22 Dose: 25 mcg Metoprolol Succinate (Toprol Xl) 12.5 mg PO BRK [facility] Last Admin: 11/29/17 08:28 Dose: 12.5 mg Pantoprazole Sodium (Protonix Ec Tab) 40 mg PO ACB [facility] Last Admin: 11/29/17 08:28 Dose: 40 mg Sodium Bicarbonate (Sodium Bicarbonate Tab) 1,300 mg PO TID [facility] Last Admin: 11/29/17 18:35 Dose: Not Given Tamsulosin HCl (Flomax) 0.8 mg PO DAILY [facility] Last Admin: 11/29/17 10:12 Dose: 0.8 mg - Labs Labs: 11/29/17 11:30 11/29/17 11:30 PT 19.7 SECONDS (9.4-12.5) H 11/21/17 16:14 INR 1.71 (0.93-1.08) H 11/21/17 16:14 APTT 40.9 Seconds (25.1-36.5) H 11/21/17 16:14 Last Vital Signs Temp 97.6 F 11/29/17 16:00 Pulse 82 11/29/17 08:28 Resp 85 H 11/29/17 16:00 BP 106/74 11/29/17 16:00 Pulse Ox 95 11/29/17 16:00 - Constitutional Appears: Well, No Acute Distress - Head Exam Head Exam: ATRAUMATIC, NORMAL INSPECTION, NORMOCEPHALIC - Eye Exam Eye Exam: Normal appearance - ENT Exam ENT Exam: Mucous Membranes Dry - Neck Exam Neck Exam: Normal Inspection - Respiratory Exam Respiratory Exam: Clear to Ausculation Bilateral, NORMAL BREATHING PATTERN. absent: Accessory Muscle Use, Rales, Rhonchi, Wheezes, Respiratory Distress, Stridor - Cardiovascular Exam Cardiovascular Exam: REGULAR RHYTHM, +S1 (Normal.), +S2 (Normal.). absent: JVD - GI/Abdominal Exam GI & Abdominal Exam: Normal Bowel Sounds. absent: Distended, Tenderness - Rectal Exam Rectal Exam: Deferred - Exam Additional comments: Deferred. - Extremities Exam Extremities Exam: Normal Inspection - Back Exam Back Exam: NORMAL INSPECTION - Neurological Exam Neurological Exam: Alert, Awake, Oriented x3 - Psychiatric Exam Psychiatric exam: Normal Affect, Normal Mood - Skin Skin Exam: Dry Assessment and Plan - Assessment and Plan (Free Text) Assessment: Low blood pressure. Hypovolemia. CAD. Atrial fibrillation. DM II. Hx Pancreatic cancer. Plan: Normal saline fluid challenge as ordered. Discussed with PMD.
[2017-11-30] MEDS: Insulin Reg-LOW-Coverage SC SCH ×4 (08:33→21:35)
--- NOTE | 2017-11-30 08:39 | CP.PCM.PN ---
Subjective - Date & Time of Evaluation Date of Evaluation: 11/30/17 Time of Evaluation: 08:32 - Subjective Subjective: PGY [address] Nix CC: BP 86/60 S: Pt had low BP earlier at 5am. BP was 85/54. Heart rate is 88/min, RR 14/min, afebrile. He was given 500cc NS bolus challenge. Denies chest pain, sob, nausea , sweating, vomiting, diarrhoea, blood in stool , hemetemesis. 66 year old white male was admitted because he was sad at the [facility] he was [facility]. PMH of CAD with stent, cardiomyopathy (Echo last year EF 25), atrial fibrillation, DM II, pancreatic cancer , S/P chemotherapy, nephrolithiasis, tinitus. A/P: Objective - Vital Signs/Intake and Output Vital Signs (last 24 hours): Temp Pulse Resp BP Pulse Ox 97.6 F 82 18 86/60 L 95 11/30/17 08:04 11/29/17 08:28 11/30/17 08:04 11/30/17 07:45 11/30/17 08:04 Intake and Output: 11/30/17 11/30/17 06:59 18:59 Intake Total 240 Balance 240 - Medications Medications: Current Medications Acetaminophen (Tylenol 325mg Tab) 650 mg PO TID PRN PRN Reason: Pain, moderate (4-7) Last Admin: 11/27/17 17:19 Dose: 650 mg Apixaban (Eliquis) 5 mg PO BID [facility] PRN Reason: Protocol Last Admin: 11/29/17 18:36 Dose: 5 mg Aspirin (Ecotrin) 81 mg PO DAILY [facility] Last Admin: 11/29/17 10:12 Dose: 81 mg Calcium Acetate (Phoslo) 1,334 mg PO WM [facility] Last Admin: 11/29/17 18:34 Dose: Not Given Digoxin (Lanoxin) 0.25 mg PO QOTHERDAY@1400 [facility] Last Admin: 11/29/17 14:24 Dose: 0.25 mg Ergocalciferol (Drisdol 50,000 Intl Units Cap) 1 cap PO Q7D [facility] Last Admin: 11/27/17 07:06 Dose: 1 cap Ceftriaxone Sodium (Rocephin 1 Gram Ivpb) 1 gm in 100 mls @ 100 mls/hr IVPB DAILY [facility] PRN Reason: Protocol Last Admin: 11/29/17 10:13 Dose: 100 mls/hr Insulin Human Regular (Humulin R Low) 0 units SC ACHS [facility] PRN Reason: Protocol Last Admin: 11/29/17 21:25 Dose: Not Given Levothyroxine Sodium (Synthroid) 25 mcg PO 0600 [facility] Last Admin: 11/30/17 05:22 Dose: 25 mcg Metoprolol Succinate (Toprol Xl) 12.5 mg PO BRK [facility] Last Admin: 11/29/17 08:28 Dose: 12.5 mg Pantoprazole Sodium (Protonix Ec Tab) 40 mg PO ACB [facility] Last Admin: 11/29/17 08:28 Dose: 40 mg Sodium Bicarbonate (Sodium Bicarbonate Tab) 1,300 mg PO TID [facility] Last Admin: 11/29/17 18:35 Dose: Not Given Tamsulosin HCl (Flomax) 0.8 mg PO DAILY [facility] Last Admin: 11/29/17 10:12 Dose: 0.8 mg - Labs Labs: 11/29/17 11:30 11/29/17 11:30 PT 19.7 SECONDS (9.4-12.5) H 11/21/17 16:14 INR 1.71 (0.93-1.08) H 11/21/17 16:14 APTT 40.9 Seconds (25.1-36.5) H 11/21/17 16:14
[2017-11-30] MEDS ORDERED: Sodium Chloride 0.9% 200 ML IV STA (09:14)
--- NOTE | 2017-11-30 09:39 | RAD ---
HISTORY: persistent hypotension r/o cardiac, pulm causes COMPARISON: 11/21/2017 FINDINGS: LUNGS: No active pulmonary disease. PLEURA: Increasing right-sided pleural effusion CARDIOVASCULAR: Normal. OSSEOUS STRUCTURES: No significant abnormalities. VISUALIZED UPPER ABDOMEN: Normal. OTHER FINDINGS: Right-sided Port-A-Cath IMPRESSION: Increasing right-sided pleural effusion
[2017-11-30 10:23] LABS: INR 2.27 (0.93-1.08); PARTIAL THROMBOPLASTIN TIME 50.3 Seconds (25.1-36.5); PROTHROMBIN TIME 26.5 SECONDS (9.4-12.5)
[2017-11-30 10:34] LABS: BASO # 0.02 K/mm3 (0.0-2.0); BASO % 0.1 % (0.0-3.0); EOS # 0.1 (0.0-0.7); EOS % 0.4 % (1.5-5.0); GRAN # 21.18 (1.4-6.5); GRAN % 88.9 % (50.0-68.0); HEMOGLOBIN 10.2 g/dL (14.0-18.0); LYMPH # 0.7 (1.2-3.4); LYMPH % 2.9 % (22.0-35.0); MEAN CELL VOLUME 91.5 fl (80.0-105.0); MEAN CORPUSCULAR HGB CONC 33.9 g/dl (31.0-37.0); MEAN PLATELET VOLUME 9.1 fl (7.0-11.0); MONO # 1.8 (0.1-0.6); MONO % 7.7 % (1.0-6.0); PLATELET COUNT 284 10^3/uL (120.0-450.0); RBC 3.29 10^6/uL (3.5-6.1); RED CELL DISTRIBUTION WIDTH 14.8 % (11.5-14.5); WHITE BLOOD COUNT 23.8 10^3/ul (4.5-11.0)
[2017-11-30 10:35] LABS: VENOUS BLOOD GAS BASE EXCESS -9.3 mmol/L (0.0-2.0); VENOUS BLOOD GAS PO2 44 mm/Hg (30-55); VENOUS BLOOD PH 7.24 (7.32-7.43)
[2017-11-30 10:35] LABS: B-TYPE NATRIURETIC PEPTIDE 30100 pg/mL (0-450); TROPONIN I 0.02 ng/mL
[2017-11-30] MEDS: cefTRIAXone 1 gm 1 GM/100 ML BAG IVPB SCH (10:39)
[2017-11-30] MEDS: Pantoprazole 40 mg EC Tab PO SCH (10:39)
[2017-11-30 10:47] LABS: ALB/GLOB RATIO 0.6 (1.1-1.8); ALBUMIN 2.3 g/dL (3.0-4.8); ALT/SGPT 18 U/L (7-56); AST/SGOT 17 U/L (17-59); BLOOD UREA NITROGEN 72 mg/dL (7-21); CALCIUM 6.9 mg/dL (8.4-10.5); GFR AFRICAN-AMERICAN 21; GFR NON-AFRICAN AMERICAN 18
[2017-11-30 12:06] LABS: LYMPHOCYTE 4 % (22.0-35.0); MONOCYTE 3 % (1.0-6.0); NEUTROPHIL 93 % (50.0-70.0); PLATELET ESTIMATE NORMAL (NORMAL)
[2017-11-30] MEDS ORDERED: DOBUTamine 500mg/250ml D5W 500 MG/250 ML BAG IV SCH (13:29)
--- NOTE | 2017-11-30 13:48 | CP.PCM.PN ---
Subjective - Date & Time of Evaluation Date of Evaluation: 11/30/17 Time of Evaluation: 12:30 - Subjective Subjective: Infectious Disease Follow Up: November 30, 2017 66 yo male with extensive PMHx of pancreatic cancer (on chemo, s/p gastrojejunostomy due to gastric outlet obstruction by Dr. Dsouza, and pancreatic stent placement by Dr. Dorantes, not a surgical candidate for pancreatic surgery), Atrial fibrillation, CAD, Right tinnitus, DM Type 2, and nephrolithiasis. Sent initially to [facility] from [facility] for suicidal ideation. The last hospitalization at [facility], the patient had jaundice secondary to an obstructed stent and MAGALY. Discharged to [facility] on 11/01/2017 after IR percutaneous drainage and improvement in liver functions. He is no longer stating suicidal thoughts at this current times. Wound cultures showing E. Coli that was highly sensitive to most antibiotics. Was on Rocephin and switched to Levaquin for antibiotic treatment. Remains on Levaquin for treatment. Noted Renal Scan. Can consider repeat urine cultures. No new complaint by the patient. Creatinine remains at 3.5 today. Leukocytosis has steadily increased to 23.8. This morning the patient became hypotensive. Objective - Vital Signs/Intake and Output Vital Signs (last 24 hours): Temp Pulse Resp BP Pulse Ox 97.6 F 82 18 86/56 L 95 11/30/17 08:04 11/29/17 08:28 11/30/17 08:04 11/30/17 11:54 11/30/17 08:04 Intake and Output: 11/30/17 11/30/17 06:59 18:59 Intake Total 240 Balance 240 - Medications Medications: Current Medications Acetaminophen (Tylenol 325mg Tab) 650 mg PO TID PRN PRN Reason: Pain, moderate (4-7) Last Admin: 11/27/17 17:19 Dose: 650 mg Apixaban (Eliquis) 5 mg PO BID [facility] PRN Reason: Protocol Last Admin: 11/30/17 10:38 Dose: 5 mg Aspirin (Ecotrin) 81 mg PO DAILY [facility] Last Admin: 11/30/17 10:35 Dose: 81 mg Calcium Acetate (Phoslo) 1,334 mg PO WM [facility] Last Admin: 11/30/17 10:39 Dose: Not Given Calcium Carbonate (Oscal) 1,000 mg PO TID [facility] Digoxin (Lanoxin) 0.25 mg PO QOTHERDAY@1400 [facility] Last Admin: 11/29/17 14:24 Dose: 0.25 mg Ergocalciferol (Drisdol 50,000 Intl Units Cap) 1 cap PO Q7D [facility] Last Admin: 11/27/17 07:06 Dose: 1 cap Dobutamine HCl/Dextrose (Dobutamine/Dextrose 5% 500mg/250ml) 500 mg in 250 mls @ 3.266 mls/hr IV .Q24H [facility]; 2 MCG/KG/MIN PRN Reason: Protocol Insulin Human Regular (Humulin R Low) 0 units SC ACHS [facility] PRN Reason: Protocol Last Admin: 11/30/17 12:22 Dose: Not Given Levothyroxine Sodium (Synthroid) 25 mcg PO 0600 [facility] Last Admin: 11/30/17 05:22 Dose: 25 mcg Pantoprazole Sodium (Protonix Ec Tab) 40 mg PO ACB [facility] Last Admin: 11/30/17 10:39 Dose: Not Given Sodium Bicarbonate (Sodium Bicarbonate Tab) 1,300 mg PO TID [facility] Last Admin: 11/30/17 10:40 Dose: Not Given Tamsulosin HCl (Flomax) 0.8 mg PO DAILY [facility] Last Admin: 11/30/17 10:39 Dose: Not Given - Labs Labs: 11/30/17 10:20 11/30/17 10:05 PT 26.5 SECONDS (9.4-12.5) H 11/30/17 10:05 INR 2.27 (0.93-1.08) H 11/30/17 10:05 APTT 50.3 Seconds (25.1-36.5) H 11/30/17 10:05 - Constitutional Appears: Non-toxic, No Acute Distress, Chronically Ill - Head Exam Head Exam: ATRAUMATIC, NORMOCEPHALIC - Eye Exam Eye Exam: EOMI, PERRL Pupil Exam: NORMAL ACCOMODATION, PERRL - ENT Exam ENT Exam: Mucous Membranes Moist, Normal External Ear Exam, TM's Normal Bilaterally - Neck Exam Neck Exam: Full ROM, Normal Inspection - Respiratory Exam Respiratory Exam: Decreased Breath Sounds, NORMAL BREATHING PATTERN. absent: Rales, Rhonchi, Wheezes - Cardiovascular Exam Cardiovascular Exam: REGULAR RHYTHM, RRR, +S1, +S2 - GI/Abdominal Exam GI & Abdominal Exam: Soft, Normal Bowel Sounds. absent: Distended, Tenderness - Extremities Exam Extremities Exam: Joint Swelling, Pedal Edema Additional comments: +2-3 overall edema of the legs. - Neurological Exam Neurological Exam: Alert, Awake, CN II-XII Intact, Oriented x3 - Psychiatric Exam Psychiatric exam: Normal Affect, Normal Mood - Skin Skin Exam: Intact, Normal Color Assessment and Plan - Assessment and Plan (Free Text) Assessment: 66 yo male with multiple medical issues including MAGALY, poor nutrition , CHF, FTT, and pancreatic cancer. The patient found to have E. coli in his left leg wounds. E. coli sensitive to Fluoroquinolones. Would consider Levaquin dosing despite renal issues given high bioavailability of drug even in its oral form and high tissue penetrance. The patient can be uncooperative at times. This can be due to the poor outlook of his pancreatic malignancy. Supportive care. Currently on Rocephin IV and Levaquin IV. Today the patient was calm and pleasant. The creatinine has continued to increase to 3.5. Hypotension today. Switched antibiotics to meropenem and gave a dose of IV Vancomycin. Local wound care. Noted the patient is being evaluated for the renal failure. Thank you for allowing me to participate in the care of the patient, we will follow with you.
[2017-11-30] MEDS ORDERED: Vancomycin 1gm in NS 250ml 1 GM/250 ML BAG IVPB ONE (14:00)
--- NOTE | 2017-11-30 14:41 | CARD ---
APPROVED REPORT EKG Measurement Heart [id number] <Conclusion> Atrial fibrillation with rapid ventricular response Left axis deviation Low voltage QRS Inferior infarct, age probably Old. ST_T Changes.
--- NOTE | 2017-11-30 16:19 | PN ---
DATE: 11/30/2017 CARDIOLOGY FOLLOWUP SUBJECTIVE: The patient remains hypotensive. At the request of nephrology, given his hypotension, his dilated cardiomyopathy as well as his poor renal function, they would like to give a trial of IV ionotropic therapy. Despite his poor prognosis, we will try him on IV dobutamine for the next 24-48 hours. Terrence Yoder MD
[2017-11-30] MEDS: DOBUTamine 500mg/250ml D5W 500 MG/250 ML BAG IV PRN (17:15)
[2017-11-30] MEDS: Meropenem 500 MG in Sodium Chloride 0.9% 50 ML IVPB SCH (17:55)
--- NOTE | 2017-11-30 18:15 | CP.PCM.PN ---
Subjective - Date & Time of Evaluation Date of Evaluation: 11/30/17 Time of Evaluation: 12:00 - Subjective Subjective: Patient hypotensive since this morning; feels tired; not urinating much; denies shortness of breath at rest; Objective - Vital Signs/Intake and Output Vital Signs (last 24 hours): Temp Pulse Resp BP Pulse Ox 97.8 F 83 19 91/66 L 96 11/30/17 17:41 11/30/17 17:41 11/30/17 17:41 11/30/17 17:41 11/30/17 17:41 Intake and Output: 11/30/17 11/30/17 06:59 18:59 Intake Total 240 Balance 240 - Medications Medications: Current Medications Acetaminophen (Tylenol 325mg Tab) 650 mg PO TID PRN PRN Reason: Pain, moderate (4-7) Last Admin: 11/27/17 17:19 Dose: 650 mg Acetylcysteine (Acetylcysteine 20%) 3 ml INH Q8 [facility] Apixaban (Eliquis) 5 mg PO BID [facility] PRN Reason: Protocol Last Admin: 11/30/17 17:06 Dose: 5 mg Aspirin (Ecotrin) 81 mg PO DAILY [facility] Last Admin: 11/30/17 10:35 Dose: 81 mg Budesonide (Pulmicort Respules) 0.5 mg IH Q8 [facility] Calcium Acetate (Phoslo) 1,334 mg PO WM [facility] Last Admin: 11/30/17 10:39 Dose: Not Given Calcium Carbonate (Oscal) 1,000 mg PO TID [facility] Last Admin: 11/30/17 17:06 Dose: 1,000 mg Digoxin (Lanoxin) 0.25 mg PO QOTHERDAY@1400 [facility] Last Admin: 11/29/17 14:24 Dose: 0.25 mg Ergocalciferol (Drisdol 50,000 Intl Units Cap) 1 cap PO Q7D [facility] Last Admin: 11/27/17 07:06 Dose: 1 cap Meropenem 500 mg/ Sodium (Chloride) 50 mls @ 100 mls/hr IVPB Q24H [facility] PRN Reason: Protocol Last Admin: 11/30/17 17:55 Dose: 100 mls/hr Dobutamine HCl/Dextrose (Dobutamine/Dextrose 5% 500mg/250ml) 500 mg in 250 mls @ 4.082 mls/hr IV .Q24H PRN; Protocol; 2.5 MCG/KG/MIN PRN Reason: TITRATE PER PROTOCOL Last Admin: 11/30/17 17:15 Dose: 2.5 mcg/kg/min, 4.082 mls/hr Insulin Human Regular (Humulin R Low) 0 units SC ACHS [facility] PRN Reason: Protocol Last Admin: 11/30/17 16:22 Dose: Not Given Ipratropium [place] (Atrovent) 0.5 mg IH TIDRESP [facility] Levothyroxine Sodium (Synthroid) 25 mcg PO 0600 [facility] Last Admin: 11/30/17 05:22 Dose: 25 mcg Pantoprazole Sodium (Protonix Ec Tab) 40 mg PO ACB [facility] Last Admin: 11/30/17 10:39 Dose: Not Given Sodium Bicarbonate (Sodium Bicarbonate Tab) 1,300 mg PO TID [facility] Last Admin: 11/30/17 17:06 Dose: 1,300 mg Tamsulosin HCl (Flomax) 0.8 mg PO DAILY [facility] Last Admin: 11/30/17 10:39 Dose: Not Given - Labs Labs: 11/30/17 10:20 11/30/17 10:05 PT 26.5 SECONDS (9.4-12.5) H 11/30/17 10:05 INR 2.27 (0.93-1.08) H 11/30/17 10:05 APTT 50.3 Seconds (25.1-36.5) H 11/30/17 10:05 - Constitutional Appears: Cachectic, Chronically Ill - ENT Exam ENT Exam: Mucous Membranes Moist - Respiratory Exam Respiratory Exam: Clear to Ausculation Bilateral. absent: Respiratory Distress Additional comments: somewhat decreased sounds on R; - Cardiovascular Exam Cardiovascular Exam: +S1, +S2. absent: Gallop - GI/Abdominal Exam GI & Abdominal Exam: Distended, Soft. absent: Tenderness - Exam Exam: absent: Bladder Distension - Extremities Exam Additional comments: markedly edematous, anasarca; - Neurological Exam Neurological Exam: Alert, Awake - Psychiatric Exam Psychiatric exam: absent: Agitated - Skin Skin Exam: Warm. absent: Cyanosis Assessment and Plan (1) Acute renal failure Assessment & Plan: MAGALY, appears to be oliguric renal failure (don't have accurate UO recorded) that is multifactorial; initial insult over 1 month ago after biliary stent removal/stent placement and vanco toxicity; only mild recovery was seen thereafter but with another insult this week with biliary stent replacement; likely further complicated by cardiorenal component with severe LV dysfunction; today with hypotension with worsening leukocytosis and question of new sepsis; Metabolic acidosis worsening with patient not always taking PO sodium bicarb; worsening volume overload due to oliguria; -Discussed with cardiology and will give trial of inotropic agent; should avoid giving further IVF for now; -ID stepping up IV antibiotics, if renal function doesn't show improvement, should dose for CrCl < 20 ml/min; -continue to avoid nephrotoxic agents; -no urgent indication for HD at this time but would be a poor candidate for it given his terminal status (though he would like to remain full code); Status: Acute (2) CHF (congestive heart failure) Assessment & Plan: Acute severely decompensated systolic CHF; with worsening R pleural effusion; is relatively asymptomatic due to relative chronicity of volume overload and being mostly immobile; see above; should hold off on diuretics given hypotension and possible sepsis; Status: Chronic (3) Metabolic acidosis Assessment & Plan: see above; Status: Acute (4) Vitamin D deficiency Status: Chronic (5) Sepsis Assessment & Plan: See above; given dose of vanco and started on meropenem; should check random vanco level before re-dosing tomorrow; Status: Acute
[2017-11-30] MEDS: Ipratropium 0.02% Inhal Soln (0.5 mg/2.5 ml) UD IH SCH (19:53)
[2017-11-30 20:22] LABS: PH,URINE 5.5 (4.7-8.0); URINE APPEARANCE CLOUDY (CLEAR); URINE BILIRUBIN NEGATIVE (NEGATIVE); URINE BLOOD LARGE (NEGATIVE); URINE COLOR YELLOW (YELLOW); URINE GLUCOSE (UA) NEGATIVE (NEGATIVE); URINE LEUKOCYTE ESTERASE MODERATE Leu/uL (NEGATIVE); URINE PROTEIN 30 mg/dL (<30 mg/dL); URINE UROBILINOGEN 0.2 E.U./dL (<1 E.U./dL)
[2017-11-30 20:27] LABS: URINE RBC TNTC /hpf (0-2)
[2017-11-30 20:28] LABS: URINE BACTERIA FEW (NEG); URINE EPITHELIAL CELLS 0 - 2 /hpf (0-5); URINE WBC 15 - 20 /hpf (0-6)
[2017-11-30] MEDS: Budesonide 0.5 mg/2 ml Inhal Susp UD IH SCH (23:01)
[2017-11-30] MEDS: Acetylcysteine 20% Inhal Soln (4ml) INH SCH (23:01)
--- NOTE | 2017-11-30 23:20 | CON ---
DATE: 11/30/2017 PULMONARY CONSULT REFERRING PHYSICIAN: Joy Nix MD. REASON FOR CONSULTATION: Pleural effusion, shortness of breath. HISTORY OF PRESENT ILLNESS: This is a 66-year-old gentleman with pancreatic cancer, been on chemotherapy, I believe he has a biliary stent, cardiomyopathy, history of gastrojejunostomy, who was at a subacute, brought in because of renal failure. Seen by Cardiology as well as Nephrology, also seen by Oncology, presently lying in the bed, short of breath with minimal exertion. No hemoptysis or hematemesis. No hematuria. No diarrhea reported. Has abdominal distention and leg swelling. PAST MEDICAL HISTORY: As per history of present illness. ALLERGIES: TO HOSPITAL SCOTCH TAPES. FAMILY HISTORY: No significant cardiopulmonary disease reported. SOCIAL HISTORY: Stopped smoking many years ago. Denies any alcohol use. MEDICATIONS: He is on dobutamine started today, also vitamin D 50,000 units every 7 days, Ecotrin 81 mg daily, Eliquis 5 mg twice a day, Flomax 0.8 mg daily, insulin coverage, digoxin 0.25 mg every other day, meropenem 500 mg every 24 hours, Os-Yifan 1000 mg three times a day, calcium acetate with meals, Protonix 40 mg daily, sodium bicarbonate three times a day, Synthroid 25 mcg daily, and Tylenol p.r.n. REVIEW OF SYSTEMS: No headache, no rhinitis. Short of breath with minimal exertion. No chest pain. Has abdominal distention and pain. Does have leg swelling. No diarrhea. PHYSICAL EXAMINATION: GENERAL: Lying in the bed, mild distress. VITAL SIGNS: Temperature is 98, heart rate is 68, respiratory rate is 20, blood pressure 98/68, pulse ox 95% on nasal cannula. HEENT: Moist mucous membrane. Crowded airway. NECK: Supple. No JVD. LUNGS: Have decreased breath sounds at the bases. HEART: S1 and S2. ABDOMEN: Has distention, epigastric area has a wound covered with dressing. EXTREMITIES: Edema. NEUROLOGIC: Awake, alert, and follows simple commands. LABORATORY DATA: Shows hemoglobin 10.2, hematocrit 30.1, WBC 23.8, platelet is 284. INR 2.23, PTT is 50. VBG show pH 7.24, pCO2 is 41, pO2 of 44. Sodium 131, potassium 4.4, BUN is 72, chloride 105, bicarbonate 15, creatinine 3.5, calcium 6.9, magnesium 1.9. AST 17, ALT 18, alkaline phosphatase is 88. LDH is 399. Creatine kinase less than 20. Troponin 0.02. ProBNP 30,100. Albumin 2.3. Microbiology: Left leg wound has E. coli. Blood culture and urine culture, there is no growth. Chest x-ray showed right-sided effusion. IMPRESSION AND PLAN: Pancreatic cancer, been on chemotherapy, has a cardiomyopathy with renal failure, metabolic acidosis, anemia, electrolyte imbalance, status post gastrojejunostomy, paroxysmal atrial fibrillation, history of coronary artery disease, also nephrolithiasis. The patient is on antibiotics, seen by Infectious Disease, also seen by Cardiology, started on dobutamine today. I agree with the present plan. Also, seen by Oncology. I will suggest adding Atrovent, Pulmicort with Mucomyst every 12 hours. We will not add beta-agonists while the patient is on dobutamine. Overall, poor prognosis. Continue anticoagulation, gastric prophylaxis. Follow up labs in the morning. Thank you and we will follow with you. rByan Mukherjee MD
[2017-12-01 07:21] LABS: BASO # 0.01 K/mm3 (0.0-2.0); BASO % 0.1 % (0.0-3.0); EOS # 0.1 (0.0-0.7); EOS % 0.5 % (1.5-5.0); GRAN # 15.85 (1.4-6.5); GRAN % 85.6 % (50.0-68.0); HEMOGLOBIN 9.1 g/dL (14.0-18.0); LYMPH # 0.8 (1.2-3.4); LYMPH % 4.5 % (22.0-35.0); MEAN CELL VOLUME 89.6 fl (80.0-105.0); MEAN CORPUSCULAR HEMOGLOBIN 30.4 pg (25.0-35.0); MEAN PLATELET VOLUME 8.8 fl (7.0-11.0); MONO # 1.7 (0.1-0.6); MONO % 9.3 % (1.0-6.0); RBC 2.99 10^6/uL (3.5-6.1); RED CELL DISTRIBUTION WIDTH 14.7 % (11.5-14.5); WHITE BLOOD COUNT 18.5 10^3/ul (4.5-11.0)
[2017-12-01 07:47] LABS: ALB/GLOB RATIO 0.6 (1.1-1.8); ALBUMIN 2.2 g/dL (3.0-4.8); CALCIUM 7.1 mg/dL (8.4-10.5)
[2017-12-01] MEDS: Levothyroxine 25 MCG TAB PO SCH (08:06)
[2017-12-01] MEDS: Insulin Reg-LOW-Coverage SC SCH ×4 (08:10→22:54)
[2017-12-01] MEDS: Budesonide 0.5 mg/2 ml Inhal Susp UD IH SCH ×2 (08:27→13:02)
[2017-12-01] MEDS: Ipratropium 0.02% Inhal Soln (0.5 mg/2.5 ml) UD IH SCH ×3 (08:27→20:23)
[2017-12-01] MEDS: Acetylcysteine 20% Inhal Soln (4ml) INH SCH ×3 (08:27→20:21)
[2017-12-01] MEDS: Pantoprazole 40 mg EC Tab PO SCH (09:48)
--- NOTE | 2017-12-01 13:25 | PN ---
DATE: 12/01/2017 REASON FOR DICTATION: Covering Dr. Terrence Yoder. REASON FOR CONSULTATION: Cardiomyopathy, on Dobutrex; history of coronary artery disease. SUBJECTIVE: Patient denies any chest pain, shortness of breath. Moved to telemetry. Not in apparent distress. Complaining of insomnia. PHYSICAL EXAMINATION: VITAL SIGNS: Temperature afebrile, heart rate 59, and blood pressure 90/45. HEENT: PERRLA, intact. NECK: Supple. No carotid bruit or thyromegaly. CHEST: Clear to auscultation. HEART: S1 and S2, regular. ABDOMEN: Soft. EXTREMITIES: Clubbing and cyanosis negative. LABORATORY DATA: Blood workup as follows. WBC 18.8, hemoglobin 9.1, hematocrit 26.8, and platelet count 273. Chemistry shows sodium 132, potassium 4.3, chloride 103, carbon dioxide 18, anion gap of 15. BUN 76, creatinine 3.4. IMPRESSION: Cardiomyopathy, atrial fibrillation, pancreatic cancer, status post stent placement of the biliary duct, chronic atrial fibrillation, anemia, depression, acute kidney injury on chronic renal insufficiency. Baseline creatinine 2.8, but now is at 3.5. RECOMMENDATIONS: Continue low dose Dobutrex as the heart rate is tolerated. Continue Eliquis, but will decrease the dose to 2.5 because of body weight and the renal insufficiency and continue digoxin, but also will decrease the dose of digoxin to Sunday, Sunday, Sunday because of the renal insufficiency and start digoxin level. Continue levothyroxine. Overall, patient's condition is critical. Long-term prognosis is guarded. We will follow with you. We will repeat digoxin level in the morning and adjust the digoxin level now for Sunday, Sunday, and Sunday. Further recommendations depending on hospital course. I will transfer care tomorrow to Dr. Terrence Yoder. Thank you Dr. Nix for providing us the opportunity in taking care of patient, Franky Campuzano. Bryan Florez MD
--- NOTE | 2017-12-01 13:34 | CP.PCM.PN ---
Subjective - Date & Time of Evaluation Date of Evaluation: 12/01/17 Time of Evaluation: 13:00 - Subjective Subjective: no acute distress Objective - Vital Signs/Intake and Output Vital Signs (last 24 hours): Temp Pulse Resp BP Pulse Ox 97.4 F L 91 H 20 113/73 94 L 12/01/17 12:00 12/01/17 12:00 12/01/17 12:00 12/01/17 12:00 12/01/17 06:00 Intake and Output: 12/01/17 12/01/17 06:59 18:59 Intake Total 49 Balance 49 - Medications Medications: Current Medications Acetaminophen (Tylenol 325mg Tab) 650 mg PO TID PRN PRN Reason: Pain, moderate (4-7) Last Admin: 11/27/17 17:19 Dose: 650 mg Acetylcysteine (Acetylcysteine 20%) 3 ml INH Q8 [facility] Last Admin: 12/01/17 13:02 Dose: Not Given Apixaban (Eliquis) 2.5 mg PO BID [facility] PRN Reason: Protocol Last Admin: 12/01/17 10:49 Dose: Not Given Aspirin (Ecotrin) 81 mg PO DAILY [facility] Last Admin: 12/01/17 09:48 Dose: 81 mg Budesonide (Pulmicort Respules) 0.5 mg IH Q8 [facility] Last Admin: 12/01/17 13:02 Dose: Not Given Calcium Acetate (Phoslo) 1,334 mg PO WM [facility] Last Admin: 11/30/17 10:39 Dose: Not Given Calcium Carbonate (Oscal) 1,000 mg PO TID [facility] Last Admin: 12/01/17 09:48 Dose: 1,000 mg Digoxin (Lanoxin) 0.25 mg PO F [facility] Ergocalciferol (Drisdol 50,000 Intl Units Cap) 1 cap PO Q7D [facility] Last Admin: 11/27/17 07:06 Dose: 1 cap Meropenem 500 mg/ Sodium (Chloride) 50 mls @ 100 mls/hr IVPB Q24H [facility] PRN Reason: Protocol Last Admin: 11/30/17 17:55 Dose: 100 mls/hr Dobutamine HCl/Dextrose (Dobutamine/Dextrose 5% 500mg/250ml) 500 mg in 250 mls @ 4.082 mls/hr IV .Q24H PRN; Protocol; 2.5 MCG/KG/MIN PRN Reason: TITRATE PER PROTOCOL Last Admin: 11/30/17 17:15 Dose: 2.5 mcg/kg/min, 4.082 mls/hr Insulin Human Regular (Humulin R Low) 0 units SC ACHS [facility] PRN Reason: Protocol Last Admin: 12/01/17 11:31 Dose: Not Given Ipratropium [place] (Atrovent) 0.5 mg IH TIDRESP [facility] Last Admin: 12/01/17 13:02 Dose: Not Given Levothyroxine Sodium (Synthroid) 25 mcg PO 0600 [facility] Last Admin: 12/01/17 08:06 Dose: 25 mcg Pantoprazole Sodium (Protonix Ec Tab) 40 mg PO ACB [facility] Last Admin: 12/01/17 09:48 Dose: 40 mg Sodium Bicarbonate (Sodium Bicarbonate Tab) 1,300 mg PO TID [facility] Last Admin: 12/01/17 09:48 Dose: 1,300 mg Tamsulosin HCl (Flomax) 0.8 mg PO DAILY [facility] Last Admin: 12/01/17 09:48 Dose: 0.8 mg - Labs Labs: 12/01/17 07:00 12/01/17 07:00 PT 26.5 SECONDS (9.4-12.5) H 11/30/17 10:05 INR 2.27 (0.93-1.08) H 11/30/17 10:05 APTT 50.3 Seconds (25.1-36.5) H 11/30/17 10:05 - Respiratory Exam Respiratory Exam: Clear to Ausculation Bilateral - Cardiovascular Exam Cardiovascular Exam: REGULAR RHYTHM - GI/Abdominal Exam GI & Abdominal Exam: Soft, Normal Bowel Sounds - Neurological Exam Neurological Exam: Alert - Skin Skin Exam: Dry, Warm Assessment and Plan (1) Pancreatic cancer Status: Chronic (2) Acute renal failure Status: Acute (3) Weakness Status: Chronic (4) CHF (congestive heart failure) Status: Chronic - Assessment and Plan (Free Text) Plan: continue present rx, pulm and cardiology follow-up
[2017-12-01] MEDS: Meropenem 500 MG in Sodium Chloride 0.9% 50 ML IVPB SCH (13:53)
--- NOTE | 2017-12-01 17:21 | CP.PCM.PN ---
Subjective - Date & Time of Evaluation Date of Evaluation: 12/01/17 Time of Evaluation: 11:00 - Subjective Subjective: Started on dobutamine drip yesterday; reports feeling little better; urinating somewhat more; tolerating diet; Objective - Vital Signs/Intake and Output Vital Signs (last 24 hours): Temp Pulse Resp BP Pulse Ox 97.4 F L 86 20 113/73 94 L 12/01/17 12:00 12/01/17 14:00 12/01/17 12:00 12/01/17 12:00 12/01/17 06:00 Intake and Output: 12/01/17 12/01/17 06:59 18:59 Intake Total 49 360 Output Total 125 Balance 49 235 - Medications Medications: Current Medications Acetaminophen (Tylenol 325mg Tab) 650 mg PO TID PRN PRN Reason: Pain, moderate (4-7) Last Admin: 11/27/17 17:19 Dose: 650 mg Acetylcysteine (Acetylcysteine 20%) 3 ml INH Q8 [facility] Last Admin: 12/01/17 13:02 Dose: Not Given Apixaban (Eliquis) 2.5 mg PO BID [facility] PRN Reason: Protocol Last Admin: 12/01/17 10:49 Dose: Not Given Aspirin (Ecotrin) 81 mg PO DAILY [facility] Last Admin: 12/01/17 09:48 Dose: 81 mg Budesonide (Pulmicort Respules) 0.5 mg IH Q8 [facility] Last Admin: 12/01/17 13:02 Dose: Not Given Calcium Acetate (Phoslo) 1,334 mg PO WM [facility] Last Admin: 11/30/17 10:39 Dose: Not Given Calcium Carbonate (Oscal) 1,000 mg PO TID [facility] Last Admin: 12/01/17 14:03 Dose: Not Given Digoxin (Lanoxin) 0.25 mg PO MWF [facility] Ergocalciferol (Drisdol 50,000 Intl Units Cap) 1 cap PO Q7D [facility] Last Admin: 11/27/17 07:06 Dose: 1 cap Meropenem 500 mg/ Sodium (Chloride) 50 mls @ 100 mls/hr IVPB Q24H [facility] PRN Reason: Protocol Last Admin: 12/01/17 13:53 Dose: 100 mls/hr Dobutamine HCl/Dextrose (Dobutamine/Dextrose 5% 500mg/250ml) 500 mg in 250 mls @ 4.082 mls/hr IV .Q24H PRN; Protocol; 2.5 MCG/KG/MIN PRN Reason: TITRATE PER PROTOCOL Last Admin: 11/30/17 17:15 Dose: 2.5 mcg/kg/min, 4.082 mls/hr Insulin Human Regular (Humulin R Low) 0 units SC ACHS [facility] PRN Reason: Protocol Last Admin: 12/01/17 11:31 Dose: Not Given Ipratropium [place] (Atrovent) 0.5 mg IH TIDRESP [facility] Last Admin: 12/01/17 13:02 Dose: Not Given Levothyroxine Sodium (Synthroid) 25 mcg PO 0600 [facility] Last Admin: 12/01/17 08:06 Dose: 25 mcg Pantoprazole Sodium (Protonix Ec Tab) 40 mg PO ACB [facility] Last Admin: 12/01/17 09:48 Dose: 40 mg Sodium Bicarbonate (Sodium Bicarbonate Tab) 1,300 mg PO TID [facility] Last Admin: 12/01/17 13:53 Dose: 1,300 mg Tamsulosin HCl (Flomax) 0.8 mg PO DAILY [facility] Last Admin: 12/01/17 09:48 Dose: 0.8 mg - Labs Labs: 12/01/17 07:00 12/01/17 07:00 PT 26.5 SECONDS (9.4-12.5) H 11/30/17 10:05 INR 2.27 (0.93-1.08) H 11/30/17 10:05 APTT 50.3 Seconds (25.1-36.5) H 11/30/17 10:05 - Constitutional Appears: Chronically Ill - ENT Exam ENT Exam: Mucous Membranes Moist - Respiratory Exam Respiratory Exam: absent: Rales, Respiratory Distress Additional comments: somewhat decreased sounds on R; - Cardiovascular Exam Cardiovascular Exam: +S1, +S2. absent: Gallop - GI/Abdominal Exam GI & Abdominal Exam: Distended, Soft. absent: Tenderness - Extremities Exam Additional comments: markedly edematous, anasarca; - Neurological Exam Neurological Exam: Alert, Awake - Psychiatric Exam Psychiatric exam: Normal Mood. absent: Agitated - Skin Skin Exam: Warm. absent: Cyanosis Assessment and Plan (1) Acute renal failure Assessment & Plan: Multifactorial etiology; serum creatinine at relative plateau since past 3 days ; ATN component should start to improve soon; hoping that cardiorenal component will improve with inotropic support; hemodynamically improved since starting both abx and inotrope; -continue dobutmine drip; -continue to avoid nephrotoxic agents; -continue antibiotics to treat sepsis (dosed for CrCl < 20 ml/min); -monitor I/O closely; Status: Acute (2) CHF (congestive heart failure) Assessment & Plan: Acute systolic CHF exacerbation; remains relatively asymptomatic; dobutamine as above; follow rest of cardio recs; Status: Acute (3) Metabolic acidosis Assessment & Plan: Mildly improved, continue PO sodium bicarb replenishment; Status: Acute (4) Vitamin D deficiency Status: Chronic (5) Sepsis Assessment & Plan: see above; Status: Acute
--- NOTE | 2017-12-01 17:58 | CP.PCM.PN ---
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 Dsouza, and pancreatic stent placement by Dr. Dorantes, not a surgical candidate for pancreatic surgery), Atrial fibrillation, CAD, Right tinnitus, DM Type 2, and nephrolithiasis. Sent initially to [facility] from [facility] for suicidal ideation. The last hospitalization at [facility], the patient had jaundice secondary to an obstructed stent and MAGALY. Discharged to [facility] on 11/01/2017 after IR percutaneous drainage and improvement in liver functions. He is no longer stating suicidal thoughts at this current times. Wound cultures showing E. Coli that was highly sensitive to most antibiotics. Was on Rocephin and switched to Levaquin for antibiotic treatment. Remains on Levaquin for treatment. Noted Renal Scan. Can consider repeat urine cultures. No new complaint by the patient. Creatinine remains at 3.5 today. Leukocytosis has steadily increased to 23.8. Yesterday morning the patient became hypotensive. On dobutamine drip since 11/30/2017. Making small amounts of urine. Objective - Vital Signs/Intake and Output Vital Signs (last 24 hours): Temp Pulse Resp BP Pulse Ox 97.4 F L 86 20 113/73 94 L 12/01/17 12:00 12/01/17 14:00 12/01/17 12:00 12/01/17 12:00 12/01/17 06:00 Intake and Output: 12/01/17 12/01/17 06:59 18:59 Intake Total 49 360 Output Total 125 Balance 49 235 - Medications Medications: Current Medications Acetaminophen (Tylenol 325mg Tab) 650 mg PO TID PRN PRN Reason: Pain, moderate (4-7) Last Admin: 11/27/17 17:19 Dose: 650 mg Acetylcysteine (Acetylcysteine 20%) 3 ml INH Q8 [facility] Last Admin: 12/01/17 13:02 Dose: Not Given Apixaban (Eliquis) 2.5 mg PO BID [facility] PRN Reason: Protocol Last Admin: 12/01/17 10:49 Dose: Not Given Aspirin (Ecotrin) 81 mg PO DAILY [facility] Last Admin: 12/01/17 09:48 Dose: 81 mg Budesonide (Pulmicort Respules) 0.5 mg IH Q8 [facility] Last Admin: 12/01/17 13:02 Dose: Not Given Calcium Acetate (Phoslo) 1,334 mg PO WM [facility] Last Admin: 11/30/17 10:39 Dose: Not Given Calcium Carbonate (Oscal) 1,000 mg PO TID [facility] Last Admin: 12/01/17 14:03 Dose: Not Given [facility]oxin (Lan[facility]) [facility] Er[facility]ocal[facility]ol (Drisdol 50,000 Intl Units Cap) 1 cap PO Q7D [facility] Last Admin: 11/27/17 07:06 Dose: 1 cap Meropenem 500 mg/ Sodium (Chloride) 50 mls @ 100 mls/hr IVPB Q24H [facility] PRN Reason: Protocol Last Admin: 12/01/17 13:53 Dose: 100 mls/hr Dobutamine HCl/Dextrose (Dobutamine/Dextrose 5% 500mg/250ml) 500 mg in 250 mls @ 4.082 mls/hr IV .Q24H PRN; Protocol; 2.5 MCG/KG/MIN PRN Reason: TITRATE PER PROTOCOL Last Admin: 11/30/17 17:15 Dose: 2.5 mcg/kg/min, 4.082 mls/hr Insulin Human Regular (Humulin R Low) 0 units SC ACHS [facility] PRN Reason: Protocol Last Admin: 12/01/17 17:33 Dose: Not Given Ipratropium [place] (Atrovent) 0.5 mg IH TIDRESP [facility] Last Admin: 12/01/17 13:02 Dose: Not Given Levothyroxine Sodium (Synthroid) 25 mcg PO 0600 [facility] Last Admin: 12/01/17 08:06 Dose: 25 mcg Pantoprazole Sodium (Protonix Ec Tab) 40 mg PO ACB [facility] Last Admin: 12/01/17 09:48 Dose: 40 mg Sodium Bicarbonate (Sodium Bicarbonate Tab) 1,300 mg PO TID [facility] Last Admin: 12/01/17 13:53 Dose: 1,300 mg Tamsulosin HCl (Flomax) 0.8 mg PO DAILY [facility] Last Admin: 12/01/17 09:48 Dose: 0.8 mg - Labs Labs: 12/01/17 07:00 12/01/17 07:00 PT 26.5 SECONDS (9.4-12.5) H 11/30/17 10:05 INR 2.27 (0.93-1.08) H 11/30/17 10:05 APTT 50.3 Seconds (25.1-36.5) H 11/30/17 10:05 - Constitutional Appears: Non-toxic, No Acute Distress, Chronically Ill - Head Exam Head Exam: ATRAUMATIC, NORMOCEPHALIC - Eye Exam Eye Exam: EOMI, PERRL Pupil Exam: NORMAL ACCOMODATION, PERRL - ENT Exam ENT Exam: Mucous Membranes Moist, Normal External Ear Exam, TM's Normal Bilaterally - Neck Exam Neck Exam: Full ROM, Normal Inspection - Respiratory Exam Respiratory Exam: Decreased Breath Sounds. absent: Rales, Rhonchi, Wheezes - Cardiovascular Exam Cardiovascular Exam: REGULAR RHYTHM, RRR, +S1, +S2 - GI/Abdominal Exam GI & Abdominal Exam: Distended, Soft, Normal Bowel Sounds - Extremities Exam Additional comments: +3-4 edema. anasarca. - Neurological Exam Neurological Exam: Alert, Awake, CN II-XII Intact, Oriented x3 Additional comments: still overall fatigued and weak. - Psychiatric Exam Psychiatric exam: Depressed, Normal Affect - Skin Skin Exam: Intact, Normal Color Assessment and Plan - Assessment and Plan (Free Text) Assessment: 66 yo male with multiple medical issues including MAGALY, poor nutrition , CHF, FTT, and pancreatic cancer. The patient found to have E. coli in his left leg wounds. E. coli sensitive to Fluoroquinolones. Would consider Levaquin dosing despite renal issues given high bioavailability of drug even in its oral form and high tissue penetrance. The patient can be uncooperative at times. This can be due to the poor outlook of his pancreatic malignancy. Supportive care. Currently on IV Meropenem and had one dose of Vancomycin IV. The creatinine is at 3.4. On Dobutamine drip at this time. Bilateral leg edema /anasarca. Cultures of the blood are negative at 24 hours. Leukocytosis has slightly improved to 18.5 today from 23.8. Local wound care. Noted the patient is being evaluated for the renal failure. Thank you for allowing me to participate in the care of the patient, we will follow with you.
--- NOTE | 2017-12-01 18:41 | PN ---
DATE: 12/01/2017 PULMONARY PROGRESS NOTE REFERRING PHYSICIAN: Joy Nix MD SUBJECTIVE: He is lying in the bed, head at 45 degrees, sleepy, arousable. Night was unremarkable. No headache. No rhinitis. Mild abdominal pain. No dysuria. No leg pain or leg swelling. OBJECTIVE: GENERAL: Abraham no acute distress. VITAL SIGNS: Temperature is 98, heart rate is 86, respiratory rate is 20, blood pressure 113/73, pulse ox 94% on room air. HEENT: Moist mucous membrane. No ulcer or thrush. NECK: Supple. No JVD. LUNGS: Have decreased breath sounds at the right base. HEART: S1 and S2. ABDOMEN: Soft, distended. Mild tenderness. EXTREMITIES: There is no edema. NEUROLOGIC: Awake, alert, follows simple command. MEDICATIONS: He is on Mucomyst 3 mL every 8 hour; Atrovent inhaled three times a day; on IV dobutamine; vitamin D 50,000 units weekly; Ecotrin 81 mg daily; Eliquis 2.5 mg twice a day; Flomax 0.4 mg daily; insulin coverage; digoxin 0.25 mg Sunday, Sunday, and Sunday; meropenem 500 mg every 24 hour; PhosLo with the meals; Protonix 40 mg daily; Pulmicort inhaled twice a day; sodium bicarb three times a day; Synthroid 25 mcg daily; Tylenol p.r.n. basis. LABORATORY DATA: Shows hemoglobin 9.1, hematocrit 26.8, WBC 18.5, platelet count is 273. Sodium 132, potassium 4.3, chloride 103, bicarbonate 18, BUN 76, creatinine 3.4, glucose 95, calcium is 7.1. AST 16, ALT 20, alk phos is 81. Albumin is 2.2. Microbiology: Blood culture, there is no growth. Leg wound has E. coli. IMPRESSION AND PLAN: Pancreatic cancer, been on chemotherapy, cardiomyopathy, renal failure, metabolic acidosis, anemia, electrolyte imbalance, history of gastrojejunostomy, paroxysmal atrial fibrillation, coronary artery disease, history of nephrolithiasis, pleural effusion. Pulmonary point of view, keep head at 45 degrees, continue IV dobutamine, bronchodilator. Being followed by Cardiology, Infectious Disease, and also from Nephrology. Followup labs in the morning. Thank you and we will follow with you. Bryan Mukherjee MD [facility] # [id number]
[2017-12-02] MEDS: Levothyroxine 25 MCG TAB PO SCH (05:44)
[2017-12-02 06:10] LABS: BASO # 0.02 K/mm3 (0.0-2.0); BASO % 0.1 % (0.0-3.0); EOS # 0.1 (0.0-0.7); EOS % 0.8 % (1.5-5.0); GRAN # 14.89 (1.4-6.5); HEMOGLOBIN 9.1 g/dL (14.0-18.0); LYMPH # 0.8 (1.2-3.4); LYMPH % 4.8 % (22.0-35.0); MEAN CORPUSCULAR HEMOGLOBIN 30.3 pg (25.0-35.0); MEAN CORPUSCULAR HGB CONC 34.1 g/dl (31.0-37.0); MEAN PLATELET VOLUME 8.5 fl (7.0-11.0); MONO # 1.6 (0.1-0.6); MONO % 9.3 % (1.0-6.0); RED CELL DISTRIBUTION WIDTH 14.5 % (11.5-14.5); WHITE BLOOD COUNT 17.5 10^3/ul (4.5-11.0)
[2017-12-02] MEDS: Insulin Reg-LOW-Coverage SC SCH ×4 (08:26→22:30)
[2017-12-02] MEDS: Acetylcysteine 20% Inhal Soln (4ml) INH SCH ×3 (08:37→21:16)
[2017-12-02] MEDS: Budesonide 0.5 mg/2 ml Inhal Susp UD IH SCH ×3 (08:38→21:16)
[2017-12-02] MEDS: Ipratropium 0.02% Inhal Soln (0.5 mg/2.5 ml) UD IH SCH ×3 (08:38→21:16)
[2017-12-02] MEDS: Pantoprazole 40 mg EC Tab PO SCH (09:46)
--- NOTE | 2017-12-02 11:55 | CP.PCM.PN ---
Subjective - Date & Time of Evaluation Date of Evaluation: 12/02/17 Time of Evaluation: 11:10 - Subjective Subjective: resting comfortably, NAD Objective - Vital Signs/Intake and Output Vital Signs (last 24 hours): Temp Pulse Resp BP Pulse Ox 97.6 F 95 H 20 98/67 L 96 12/02/17 06:00 12/02/17 06:00 12/02/17 06:00 12/02/17 06:00 12/02/17 06:00 Intake and Output: 12/02/17 12/02/17 06:59 18:59 Intake Total 169 Output Total 700 Balance -531 - Medications Medications: Current Medications Acetaminophen (Tylenol 325mg Tab) 650 mg PO TID PRN PRN Reason: Pain, moderate (4-7) Last Admin: 11/27/17 17:19 Dose: 650 mg Acetylcysteine (Acetylcysteine 20%) 3 ml INH Q8 [facility] Last Admin: 12/02/17 08:37 Dose: Not Given Apixaban (Eliquis) 2.5 mg PO BID [facility] PRN Reason: Protocol Last Admin: 12/02/17 09:46 Dose: 2.5 mg Aspirin (Ecotrin) 81 mg PO DAILY [facility] Last Admin: 12/02/17 09:46 Dose: 81 mg Budesonide (Pulmicort Respules) 0.5 mg IH Q8 [facility] Last Admin: 12/02/17 08:38 Dose: Not Given Calcium Acetate (Phoslo) 1,334 mg PO WM [facility] Last Admin: 11/30/17 10:39 Dose: Not Given Calcium Carbonate (Oscal) 1,000 mg PO TID [facility] Last Admin: 12/02/17 11:52 Dose: Not Given Digoxin (Lanoxin) 0.[address] [facility] Ergocalciferol (Drisdol 50,000 Intl Units Cap) 1 cap PO Q7D [facility] Last Admin: 11/27/17 07:06 Dose: 1 cap Meropenem 500 mg/ Sodium (Chloride) 50 mls @ 100 mls/hr IVPB Q24H [facility] PRN Reason: Protocol Last Admin: 12/01/17 13:53 Dose: 100 mls/hr Dobutamine HCl/Dextrose (Dobutamine/Dextrose 5% 500mg/250ml) 500 mg in 250 mls @ 4.082 mls/hr IV .Q24H PRN; Protocol; 2.5 MCG/KG/MIN PRN Reason: TITRATE PER PROTOCOL Last Admin: 11/30/17 17:15 Dose: 2.5 mcg/kg/min, 4.082 mls/hr Insulin Human Regular (Humulin R Low) 0 units SC ACHS [facility] PRN Reason: Protocol Last Admin: 12/02/17 11:47 Dose: Not Given Ipratropium [place] (Atrovent) 0.5 mg IH TIDRESP [facility] Last Admin: 12/02/17 08:38 Dose: Not Given Levothyroxine Sodium (Synthroid) 25 mcg PO 0600 [facility] Last Admin: 12/02/17 05:44 Dose: 25 mcg Pantoprazole Sodium (Protonix Ec Tab) 40 mg PO ACB [facility] Last Admin: 12/02/17 09:46 Dose: 40 mg Sodium Bicarbonate (Sodium Bicarbonate Tab) 1,300 mg PO TID [facility] Last Admin: 12/02/17 09:46 Dose: 1,300 mg Tamsulosin HCl (Flomax) 0.8 mg PO DAILY [facility] Last Admin: 12/02/17 09:46 Dose: 0.8 mg - Labs Labs: 12/02/17 06:00 12/02/17 06:00 PT 26.5 SECONDS (9.4-12.5) H 11/30/17 10:05 INR 2.27 (0.93-1.08) H 11/30/17 10:05 APTT 50.3 Seconds (25.1-36.5) H 11/30/17 10:05 - Respiratory Exam Respiratory Exam: NORMAL BREATHING PATTERN - Cardiovascular Exam Cardiovascular Exam: REGULAR RHYTHM - GI/Abdominal Exam GI & Abdominal Exam: Soft, Normal Bowel Sounds - Extremities Exam Extremities Exam: Normal Inspection - Neurological Exam Neurological Exam: Alert, Awake - Skin Skin Exam: Dry, Warm Assessment and Plan (1) Pancreatic cancer Status: Chronic (2) Acute renal failure Status: Acute (3) Weakness Status: Chronic (4) CHF (congestive heart failure) Status: Acute - Assessment and Plan (Free Text) Plan: continue present care, Dr. Nix to resume care of patient in am
--- NOTE | 2017-12-02 14:27 | PN ---
DATE: 12/02/2017 PULMONARY PROGRESS NOTE REFERRING PHYSICIAN: Joy Nix MD. SUBJECTIVE: He is lying in the bed, head at 45 degrees. Night was unremarkable. No headache. No rhinitis. No nausea. Mild abdominal discomfort. No dysuria, leg pain or leg swelling. OBJECTIVE: GENERAL: In no acute distress. VITAL SIGNS: Temp is 98, heart rate is 92, respiratory rate is 20, blood pressure 122/63, pulse ox 96% on room air. HEENT: Moist mucous membrane. No ulcer or thrush noted. NECK: Supple. No JVD. LUNGS: Have a fair airflow with rhonchi. HEART: S1 and S2. ABDOMEN: Soft, but distended. Mild tenderness. EXTREMITIES: There is no edema. NEUROLOGICAL: Awake and alert. Follows simple command. LABORATORY DATA: Shows hemoglobin 9.1, hematocrit 26.7, WBC 17.5, platelet count is 251. Sodium 133, potassium 4.2, chloride 104, bicarbonate is 17, BUN 75, creatinine 3.3, glucose 138, calcium is 7, phosphorus 6.6, magnesium 1.9. MEDICATIONS: He is on Mucomyst inhaled twice a day; Atrovent 0.5 mg three times a day; IV dobutamine; also vitamin D 50,000 units weekly; Ecotrin 81 mg daily; Eliquis 2.5 mg twice a day; Flomax 0.8 mg daily; digoxin 0.25 mg Sunday, Sunday, and Sunday; meropenem 500 mg every 24 hours; Os-Yifan 1000 mg three times a day; PhosLo with the meals; Protonix 40 mg daily; Pulmicort inhaled twice a day; bicarbonate 1300 mg three times a day; Synthroid 25 mcg daily; Tylenol p.r.n. basis. IMPRESSION AND PLAN: Pancreatic cancer, has been on chemotherapy; severe cardiomyopathy with heart failure; renal failure; metabolic acidosis; anemia; electrolyte imbalance; history of gastrojejunostomy; paroxysmal atrial fibrillation; coronary artery disease; nephrolithiasis; pleural effusion. Pulmonary point of view, doing okay. Continue bronchodilator. Keep head at 45 degrees. May use supplemental oxygen. Continue dobutamine. Cardiology followup. Fall precaution. Out of bed to chair. Thank you and we will follow with you. Bryan Mukherjee MD [facility] # [id number]
[2017-12-02] MEDS: Meropenem 500 MG in Sodium Chloride 0.9% 50 ML IVPB SCH (14:53)
--- NOTE | 2017-12-02 15:23 | PN ---
DATE: 12/02/2017 REASON FOR DICTATION: Covering Dr. Terrence Yoder. REASON FOR CONSULTATION: Cardiomyopathy, on Dobutrex; history of coronary artery disease; acute kidney injury on chronic renal insufficiency. SUBJECTIVE: The patient denies any chest pain. No shortness of breath or any palpitation. Does not want to talk while he wants to eat. Complaining of insomnia. Not in any apparent distress. OBJECTIVE: GENERAL: Not in any apparent distress, sitting in the bedside, eating the breakfast. VITAL SIGNS: Temperature afebrile, heart rate 95, blood pressure 103/70. HEENT: PERRLA. Extraocular muscles intact. NECK: Supple. No carotid bruit. No thyromegaly. CHEST: Clear to auscultation. HEART: S1 and S2 regular. ABDOMEN: Soft. EXTREMITIES: Clubbing and cyanosis negative. LABORATORY DATA: Blood workup as follows: WBC 17.5, hemoglobin 9, hematocrit 26.7, platelet count 251. Chemistry shows sodium 133, potassium 4.2, chloride 104, carbon dioxide 17, anion gap of 16, BUN 75, creatinine 3.3. IMPRESSION: Cardiomyopathy, coronary artery disease, chronic renal insufficiency, chronic atrial fibrillation, anemia, depression, acute kidney injury on chronic renal insufficiency. RECOMMENDATIONS: Eliquis dose adjusted to 2.5 b.i.d. Continue Dobutrex. Monitor renal function. on Sunday, Sunday and Sunday, we will get digoxin level. We will transfer care tomorrow to Dr. Yoder. We will get digoxin level tomorrow. I will transfer care tomorrow to Dr. Yoder. Bryan Florez MD
--- NOTE | 2017-12-02 18:00 | CP.PCM.PN ---
Subjective - Date & Time of Evaluation Date of Evaluation: 12/02/17 Time of Evaluation: 15:30 - Subjective Subjective: Infectious Disease Follow Up: December 02, 2017 66 yo male with extensive PMHx of pancreatic cancer (on chemo, s/p gastrojejunostomy due to gastric outlet obstruction by Dr. Dsouza, and pancreatic stent placement by Dr. Dorantes, not a surgical candidate for pancreatic surgery), Atrial fibrillation, CAD, Right tinnitus, DM Type 2, and nephrolithiasis. Sent initially to [facility] from Replaced by [facility] for suicidal ideation. The last hospitalization at [facility], the patient had jaundice secondary to an obstructed stent and MAGALY. Discharged to Replaced by [facility] on 11/01/2017 after IR percutaneous drainage and improvement in liver functions. He is no longer stating suicidal thoughts at this current times. Wound cultures showing E. Coli that was highly sensitive to most antibiotics. Was on Rocephin and switched to Levaquin for antibiotic treatment. Remains on Levaquin for treatment. Noted Renal Scan. Can consider repeat urine cultures. No new complaint by the patient. Creatinine remains at 3.5 today. Leukocytosis had steadily increased to 23.8 but has slightly improved to 17.5 today. Yesterday morning the patient became hypotensive. On dobutamine drip since 11/30/2017. Making small amounts of urine. Objective - Vital Signs/Intake and Output Vital Signs (last 24 hours): Temp Pulse Resp BP Pulse Ox 97.4 F L 92 H 20 122/63 96 12/02/17 12:00 12/02/17 12:00 12/02/17 12:00 12/02/17 12:00 12/02/17 06:00 Intake and Output: 12/02/17 12/02/17 06:59 18:59 Intake Total 169 540 Output Total 700 300 Balance -531 240 - Medications Medications: Current Medications Acetaminophen (Tylenol 325mg Tab) 650 mg PO TID PRN PRN Reason: Pain, moderate (4-7) Last Admin: 11/27/17 17:19 Dose: 650 mg Acetylcysteine (Acetylcysteine 20%) 3 ml INH Q8 [facility] Last Admin: 12/02/17 13:02 Dose: Not Given Apixaban (Eliquis) 2.5 mg PO BID [facility] PRN Reason: Protocol Last Admin: 12/02/17 09:46 Dose: 2.5 mg Aspirin (Ecotrin) 81 mg PO DAILY [facility] Last Admin: 12/02/17 09:46 Dose: 81 mg Budesonide (Pulmicort Respules) 0.5 mg IH Q8 [facility] Last Admin: 12/02/17 13:02 Dose: Not Given Calcium Acetate (Phoslo) 1,334 mg PO WM [facility] Last Admin: 11/30/17 10:39 Dose: Not Given Calcium Carbonate (Oscal) 1,000 mg PO TID [facility] Last Admin: 12/02/17 15:03 Dose: Not Given Digoxin (Lanoxin) 0.25 mg PO MWF [facility] Ergocalciferol (Drisdol 50,000 Intl Units Cap) 1 cap PO Q7D [facility] Last Admin: 11/27/17 07:06 Dose: 1 cap Meropenem 500 mg/ Sodium (Chloride) 50 mls @ 100 mls/hr IVPB Q24H [facility] PRN Reason: Protocol Last Admin: 12/02/17 14:53 Dose: 100 mls/hr Dobutamine HCl/Dextrose (Dobutamine/Dextrose 5% 500mg/250ml) 500 mg in 250 mls @ 4.082 mls/hr IV .Q24H PRN; Protocol; 2.5 MCG/KG/MIN PRN Reason: TITRATE PER PROTOCOL Last Admin: 11/30/17 17:15 Dose: 2.5 mcg/kg/min, 4.082 mls/hr Insulin Human Regular (Humulin R Low) 0 units SC ACHS [facility] PRN Reason: Protocol Last Admin: 12/02/17 16:58 Dose: 1 units Ipratropium [place] (Atrovent) 0.5 mg IH TIDRESP [facility] Last Admin: 12/02/17 13:02 Dose: Not Given Levothyroxine Sodium (Synthroid) 25 mcg PO 0600 [facility] Last Admin: 12/02/17 05:44 Dose: 25 mcg Pantoprazole Sodium (Protonix Ec Tab) 40 mg PO ACB [facility] Last Admin: 12/02/17 09:46 Dose: 40 mg Sodium Bicarbonate (Sodium Bicarbonate Tab) 1,300 mg PO TID [facility] Last Admin: 12/02/17 14:53 Dose: 1,300 mg Tamsulosin HCl (Flomax) 0.8 mg PO DAILY [facility] Last Admin: 12/02/17 09:46 Dose: 0.8 mg - Labs Labs: 12/02/17 06:00 12/02/17 06:00 PT 26.5 SECONDS (9.4-12.5) H 11/30/17 10:05 INR 2.27 (0.93-1.08) H 11/30/17 10:05 APTT 50.3 Seconds (25.1-36.5) H 11/30/17 10:05 - Constitutional Appears: Non-toxic, No Acute Distress, Chronically Ill - Head Exam Head Exam: ATRAUMATIC, NORMOCEPHALIC - Eye Exam Eye Exam: EOMI, PERRL Pupil Exam: NORMAL ACCOMODATION, PERRL - ENT Exam ENT Exam: Mucous Membranes Moist, Normal External Ear Exam, TM's Normal Bilaterally - Neck Exam Neck Exam: Full ROM, Normal Inspection - Respiratory Exam Respiratory Exam: Decreased Breath Sounds, NORMAL BREATHING PATTERN. absent: Rales, Rhonchi, Wheezes - Cardiovascular Exam Cardiovascular Exam: REGULAR RHYTHM, RRR, +S1, +S2 - GI/Abdominal Exam GI & Abdominal Exam: Distended, Soft, Normal Bowel Sounds. absent: Tenderness - Extremities Exam Additional comments: +3-4 edema. anasarca. - Neurological Exam Neurological Exam: Alert, Awake, CN II-XII Intact, Oriented x3 Additional comments: still overall fatigued and weak. - Psychiatric Exam Psychiatric exam: Depressed, Normal Affect - Skin Additional comments: As above. Assessment and Plan - Assessment and Plan (Free Text) Assessment: 66 yo male with multiple medical issues including MAGALY, poor nutrition , CHF, FTT, and pancreatic cancer. The patient found to have E. coli in his left leg wounds. E. coli sensitive to Fluoroquinolones. Would consider Levaquin dosing despite renal issues given high bioavailability of drug even in its oral form and high tissue penetrance. The patient can be uncooperative at times. This can be due to the poor outlook of his pancreatic malignancy. Supportive care. Currently on IV Meropenem and had one dose of Vancomycin IV. The creatinine is at 3.4. On Dobutamine drip at this time. Bilateral leg edema /anasarca. Cultures of the blood are negative at 24 hours. Leukocytosis has slightly improved to 17.5 today from 18.5 compared to the high of 23.8. Local wound care. Noted the patient is being evaluated for the renal failure. Thank you for allowing me to participate in the care of the patient, we will follow with you.
--- NOTE | 2017-12-02 19:20 | CP.PCM.PN ---
Subjective - Date & Time of Evaluation Date of Evaluation: 12/02/17 Time of Evaluation: 18:30 - Subjective Subjective: Patient reportedly making small amounts of urine; no shortness of breath; Objective - Vital Signs/Intake and Output Vital Signs (last 24 hours): Temp Pulse Resp BP Pulse Ox 97.4 F L 93 H 18 119/69 99 12/02/17 18:00 12/02/17 18:00 12/02/17 18:00 12/02/17 18:00 12/02/17 18:00 Intake and Output: 12/02/17 12/03/17 18:59 06:59 Intake Total 540 Output Total 300 Balance 240 - Medications Medications: Current Medications Acetaminophen (Tylenol 325mg Tab) 650 mg PO TID PRN PRN Reason: Pain, moderate (4-7) Last Admin: 11/27/17 17:19 Dose: 650 mg Acetylcysteine (Acetylcysteine 20%) 3 ml INH Q8 [facility] Last Admin: 12/02/17 13:02 Dose: Not Given Apixaban (Eliquis) 2.5 mg PO BID [facility] PRN Reason: Protocol Last Admin: 12/02/17 18:18 Dose: Not Given Aspirin (Ecotrin) 81 mg PO DAILY [facility] Last Admin: 12/02/17 09:46 Dose: 81 mg Budesonide (Pulmicort Respules) 0.5 mg IH Q8 [facility] Last Admin: 12/02/17 13:02 Dose: Not Given Calcium Acetate (Phoslo) 1,334 mg PO WM [facility] Last Admin: 11/30/17 10:39 Dose: Not Given Calcium Carbonate (Oscal) 1,000 mg PO TID [facility] Last Admin: 12/02/17 18:07 Dose: Not Given Digoxin (Lanoxin) 0.25 mg PO F [facility] Ergocalciferol (Drisdol 50,000 Intl Units Cap) 1 cap PO Q7D [facility] Last Admin: 11/27/17 07:06 Dose: 1 cap Meropenem 500 mg/ Sodium (Chloride) 50 mls @ 100 mls/hr IVPB Q24H [facility] PRN Reason: Protocol Last Admin: 12/02/17 14:53 Dose: 100 mls/hr Dobutamine HCl/Dextrose (Dobutamine/Dextrose 5% 500mg/250ml) 500 mg in 250 mls @ 4.082 mls/hr IV .Q24H PRN; Protocol; 2.5 MCG/KG/MIN PRN Reason: TITRATE PER PROTOCOL Last Admin: 11/30/17 17:15 Dose: 2.5 mcg/kg/min, 4.082 mls/hr Insulin Human Regular (Humulin R Low) 0 units SC ACHS [facility] PRN Reason: Protocol Last Admin: 12/02/17 16:58 Dose: 1 units Ipratropium [place] (Atrovent) 0.5 mg IH TIDRESP [facility] Last Admin: 12/02/17 13:02 Dose: Not Given Levothyroxine Sodium (Synthroid) 25 mcg PO 0600 [facility] Last Admin: 12/02/17 05:44 Dose: 25 mcg Pantoprazole Sodium (Protonix Ec Tab) 40 mg PO ACB [facility] Last Admin: 12/02/17 09:46 Dose: 40 mg Sodium Bicarbonate (Sodium Bicarbonate Tab) 1,300 mg PO TID [facility] Last Admin: 12/02/17 18:18 Dose: Not Given Tamsulosin HCl (Flomax) 0.8 mg PO DAILY [facility] Last Admin: 12/02/17 09:46 Dose: 0.8 mg - Labs Labs: 12/02/17 06:00 12/02/17 06:00 PT 26.5 SECONDS (9.4-12.5) H 11/30/17 10:05 INR 2.27 (0.93-1.08) H 11/30/17 10:05 APTT 50.3 Seconds (25.1-36.5) H 11/30/17 10:05 - Constitutional Appears: Chronically Ill - Respiratory Exam Respiratory Exam: Clear to Ausculation Bilateral. absent: Respiratory Distress - Cardiovascular Exam Cardiovascular Exam: +S1, +S2. absent: Gallop, JVD - GI/Abdominal Exam GI & Abdominal Exam: Distended, Soft. absent: Tenderness - Extremities Exam Additional comments: markedly edematous, anasarca; - Neurological Exam Neurological Exam: Alert, Awake - Psychiatric Exam Psychiatric exam: Normal Mood. absent: Agitated - Skin Skin Exam: Warm. absent: Cyanosis Assessment and Plan (1) Acute renal failure Assessment & Plan: MAGALY, minimal improvement in serum creatinine since starting dobutamine for possible cardiorenal component of renal failure; non-oliguric but with only slightly negative fluid balance; -will give lasix 80 mg IV x 1 and assess response; -continue to avoid nephrotoxic agents; Status: Acute (2) CHF (congestive heart failure) Assessment & Plan: Acute decompensated systolic CHF; relatively comfortable at rest; giving IV lasix as above; Status: Acute (3) Metabolic acidosis Assessment & Plan: Relatively stable; continue PO sodium bicarb replenishment; Status: Acute (4) Vitamin D deficiency Status: Chronic (5) Sepsis Assessment & Plan: On meropenem, dosed for CrCl < 20 ml/min; leukocytosis improving slowly, continue per ID recs; Status: Acute
[2017-12-03] MEDS: Levothyroxine 25 MCG TAB PO SCH (06:29)
[2017-12-03] MEDS: DOBUTamine 500mg/250ml D5W 500 MG/250 ML BAG IV PRN (06:30)
[2017-12-03 07:34] LABS: BASO # 0.01 K/mm3 (0.0-2.0); BASO % 0.1 % (0.0-3.0); EOS # 0.2 (0.0-0.7); EOS % 1.3 % (1.5-5.0); GRAN # 11.5 (1.4-6.5); GRAN % 83.3 % (50.0-68.0); HEMOGLOBIN 8.5 g/dL (14.0-18.0); LYMPH # 0.7 (1.2-3.4); LYMPH % 5.1 % (22.0-35.0); MEAN CELL VOLUME 88.7 fl (80.0-105.0); MEAN CORPUSCULAR HEMOGLOBIN 30.9 pg (25.0-35.0); MEAN CORPUSCULAR HGB CONC 34.8 g/dl (31.0-37.0); MEAN PLATELET VOLUME 9.1 fl (7.0-11.0); MONO # 1.4 (0.1-0.6); MONO % 10.2 % (1.0-6.0); RBC 2.75 10^6/uL (3.5-6.1); RED CELL DISTRIBUTION WIDTH 14.6 % (11.5-14.5); WHITE BLOOD COUNT 13.8 10^3/ul (4.5-11.0)
[2017-12-03] MEDS: Acetylcysteine 20% Inhal Soln (4ml) INH SCH ×3 (07:39→20:20)
[2017-12-03] MEDS: Budesonide 0.5 mg/2 ml Inhal Susp UD IH SCH ×3 (07:39→20:20)
[2017-12-03] MEDS: Ipratropium 0.02% Inhal Soln (0.5 mg/2.5 ml) UD IH SCH ×3 (07:39→20:20)
[2017-12-03 07:42] LABS: ALB/GLOB RATIO 0.6 (1.1-1.8); ALBUMIN 2.2 g/dL (3.0-4.8); CALCIUM 7.1 mg/dL (8.4-10.5)
[2017-12-03] MEDS: Insulin Reg-LOW-Coverage SC SCH ×4 (08:09→22:21)
[2017-12-03] MEDS: Pantoprazole 40 mg EC Tab PO SCH (08:35)
--- NOTE | 2017-12-03 09:42 | PN ---
DATE: 11/30/2017 SUBJECTIVE: Patient is seen and examined at the bedside on 11/30/2017. All events happened noted. Discussion done with hospitalist and resident student. When I saw the patient, he looks better. No nausea, vomiting or diarrhea. No hematuria or hematochezia. No headache. No chest pain. No rhinitis. Having shortness of breath with minimal exertion. Does have leg swelling. Abdomen is big. PHYSICAL EXAMINATION VITAL SIGNS: Temperature is 98.2, heart rate of 68, respiratory rate 20, blood pressure 98/58, pulse oximetry 95% on nasal cannula. HEENT: Head is normocephalic and atraumatic. Eyes, PERRLA. Extraocular muscles are intact. Conjunctivae are clear. Nose is patent. NECK: Supple. No carotid bruit. No JVD or thyromegaly. CHEST: Bilaterally symmetrical. HEART: S1 and S2 positive. LUNGS: Clear to auscultation. ABDOMEN: Soft. Bowel sounds present. No organomegaly. EXTREMITIES: No edema. No cyanosis. NEUROLOGICAL: The patient is awake and alert. Moving all four extremities. No focal deficits. LABORATORY DATA: Hemoglobin 10.2, hematocrit 38.1, white blood cells 23.8, platelets 284. BNP . Left leg wound has yeast cell. Blood cultures urine are no growth. Chest x-ray showing right sided effusion. ASSESSMENT AND PLAN: Patient with pancreatic cancer, was on chemotherapy, has cardiomegaly with renal failure, metabolic acidosis, history of anemia, electrolyte imbalance, status post gastrojejunostomy, paroxysmal atrial fibrillation, history of coronary artery disease, also history of nephrolithiasis. The patient is getting antibiotics by Infectious Diseases. Manager [employer] is on the case. Started on dobutamine because of hypertension and got couple of bags of normal saline, but still blood pressure is low. Manager [employer] is aware of patient's blood pressure. Started on dobutamine. Now has pleural effusion. Called Dr. Mukherjee's consult. Appreciated Dr. Mukherjee, mamma logist and Infectious Diseases input. Overall poor prognosis. Continue anticoagulation, gastric prophylaxis and deep venous thrombosis prophylaxis. Repeat labs. We will follow up. Joy Nix MD
[2017-12-03] MEDS ORDERED: Digoxin 250 mcg (0.25 mg) Tab PO SCH (10:00)
[2017-12-03 10:28] VITALS: PULSE 96
--- NOTE | 2017-12-03 11:40 | PN ---
DATE: 12/03/2017 CARDIOLOGY FOLLOWUP SUBJECTIVE: The patient has had a good response to IV dobutamine. PHYSICAL EXAMINATION: GENERAL: The patient is awake, alert. VITAL SIGNS: Blood pressure is 100/65. NECK: Negative JVD. LUNGS: Without rales. HEART: Reveals S1, S2. EXTREMITIES: Without edema. LABORATORY DATA: BUN and creatinine are 76 and 3.3. The hemoglobin is 8.5. IMPRESSION: 1. End-stage dilated cardiomyopathy. 2. Transient hypotension, improved on IV dobutamine. 3. Pancreatic cancer. 4. Anemia. PLAN: Given these findings, we will discontinue the dobutamine now. The patient is irritated by his roommate. We will discontinue telemetry and transfer the patient to non-telemetry floor. Terrence Yoder MD
[2017-12-03] MEDS: Meropenem 500 MG in Sodium Chloride 0.9% 50 ML IVPB SCH (13:36)
[2017-12-03 16:43] VITALS: O2SAT 95
--- NOTE | 2017-12-03 18:02 | CP.PCM.PN ---
Subjective - Date & Time of Evaluation Date of Evaluation: 12/03/17 Time of Evaluation: 16:00 - Subjective Subjective: Infectious Disease Follow Up: December 03, 2017 66 yo male with extensive PMHx of pancreatic cancer (on chemo, s/p gastrojejunostomy due to gastric outlet obstruction by Dr. Dsouza, and pancreatic stent placement by Dr. Dorantes, not a surgical candidate for pancreatic surgery), Atrial fibrillation, CAD, Right tinnitus, DM Type 2, and nephrolithiasis. Sent initially to [facility] from [facility] for suicidal ideation. The last hospitalization at [facility], the patient had jaundice secondary to an obstructed stent and MAGALY. Discharged to [facility] on 11/01/2017 after IR percutaneous drainage and improvement in liver functions. He is no longer stating suicidal thoughts at this current times. Wound cultures showing E. Coli that was highly sensitive to most antibiotics. Was on Rocephin and switched to Levaquin for antibiotic treatment. Remains on Levaquin for treatment. Noted Renal Scan. Can consider repeat urine cultures. No new complaint by the patient. Creatinine remains at 3.5 today. Leukocytosis had steadily increased to 23.8 but has slightly improved to 17.5 today. Yesterday morning the patient became hypotensive. On dobutamine drip since 11/30/2017. Making small amounts of urine. Patient remains very grumpy. Objective - Vital Signs/Intake and Output Vital Signs (last 24 hours): Temp Pulse Resp BP Pulse Ox 97.0 F L 89 19 107/54 L 95 12/03/17 16:42 12/03/17 16:42 12/03/17 16:42 12/03/17 16:42 12/03/17 16:42 Intake and Output: 12/03/17 12/03/17 06:59 18:59 Intake Total 490 205 Output Total 600 100 Balance -110 105 - Medications Medications: Current Medications Acetaminophen (Tylenol 325mg Tab) 650 mg PO TID PRN PRN Reason: Pain, moderate (4-7) Last Admin: 11/27/17 17:19 Dose: 650 mg Acetylcysteine (Acetylcysteine 20%) 3 ml INH Q8 [facility] Last Admin: 12/03/17 13:39 Dose: Not Given Apixaban (Eliquis) 2.5 mg PO BID [facility] PRN Reason: Protocol Last Admin: 12/03/17 10:16 Dose: 2.5 mg Aspirin (Ecotrin) 81 mg PO DAILY [facility] Last Admin: 12/03/17 10:16 Dose: 81 mg Budesonide (Pulmicort Respules) 0.5 mg IH Q8 [facility] Last Admin: 12/03/17 17:12 Dose: Not Given Calcium Acetate (Phoslo) 1,334 mg PO WM [facility] Last Admin: 11/30/17 10:39 Dose: Not Given Calcium Carbonate (Oscal) 1,000 mg PO TID [facility] Last Admin: 12/03/17 14:24 Dose: Not Given Digoxin (Lanoxin) 0.25 mg PO MWF [facility] Last Admin: 12/03/17 10:22 Dose: 0.25 mg Ergocalciferol (Drisdol 50,000 Intl Units Cap) 1 cap PO Q7D [facility] Last Admin: 11/27/17 07:06 Dose: 1 cap Meropenem 500 mg/ Sodium (Chloride) 50 mls @ 100 mls/hr IVPB Q24H [facility] PRN Reason: Protocol Last Admin: 12/03/17 13:36 Dose: 100 mls/hr Insulin Human Regular (Humulin R Low) 0 units SC ACHS [facility] PRN Reason: Protocol Last Admin: 12/03/17 17:14 Dose: Not Given Ipratropium [place] (Atrovent) 0.5 mg IH TIDRESP [facility] Last Admin: 12/03/17 13:39 Dose: Not Given Levothyroxine Sodium (Synthroid) 25 mcg PO 0600 [facility] Last Admin: 12/03/17 06:29 Dose: 25 mcg Pantoprazole Sodium (Protonix Ec Tab) 40 mg PO ACB [facility] Last Admin: 12/03/17 08:35 Dose: 40 mg Sodium Bicarbonate (Sodium Bicarbonate Tab) 1,300 mg PO TID [facility] Last Admin: 12/03/17 14:05 Dose: Not Given Tamsulosin HCl (Flomax) 0.8 mg PO DAILY [facility] Last Admin: 12/03/17 10:17 Dose: 0.8 mg - Labs Labs: 12/03/17 06:30 12/03/17 06:30 PT 26.5 SECONDS (9.4-12.5) H 11/30/17 10:05 INR 2.27 (0.93-1.08) H 04/27/18 10:05 APTT 50.3 Seconds (25.1-36.5) H 11/30/17 10:05 - Constitutional Appears: Non-toxic, No Acute Distress, Chronically Ill - Head Exam Head Exam: ATRAUMATIC, NORMOCEPHALIC - Eye Exam Eye Exam: EOMI, PERRL Pupil Exam: NORMAL ACCOMODATION, PERRL - ENT Exam ENT Exam: Mucous Membranes Moist, Normal External Ear Exam, TM's Normal Bilaterally - Neck Exam Neck Exam: Full ROM, Normal Inspection - Respiratory Exam Respiratory Exam: Clear to Ausculation Bilateral, NORMAL BREATHING PATTERN. absent: Rales, Rhonchi, Wheezes - Cardiovascular Exam Cardiovascular Exam: REGULAR RHYTHM, RRR, +S1, +S2 - GI/Abdominal Exam GI & Abdominal Exam: Soft, Normal Bowel Sounds. absent: Distended, Tenderness - Extremities Exam Additional comments: +3 edema. - Neurological Exam Neurological Exam: Alert, Awake, CN II-XII Intact, Oriented x3 Additional comments: still overall fatigued and weak. - Psychiatric Exam Psychiatric exam: Depressed, Normal Affect - Skin Additional comments: As Above. Assessment and Plan - Assessment and Plan (Free Text) Assessment: 66 yo male with multiple medical issues including MAGALY, poor nutrition , CHF, FTT, and pancreatic cancer. The patient found to have E. coli in his left leg wounds. E. coli sensitive to Fluoroquinolones. Would consider Levaquin dosing despite renal issues given high bioavailability of drug even in its oral form and high tissue penetrance. The patient can be uncooperative at times. This can be due to the poor outlook of his pancreatic malignancy. Supportive care. Currently on IV Meropenem and had one dose of Vancomycin IV. The creatinine is at 3.4. On Dobutamine drip at this time. Bilateral leg edema /anasarca. Cultures of the blood are negative at 24 hours. Leukocytosis has improved to 13.8. Local wound care. Noted the patient is being evaluated for the renal failure. Thank you for allowing me to participate in the care of the patient, we will follow with you.
--- NOTE | 2017-12-03 19:38 | CP.PCM.PN ---
Objective - Vital Signs/Intake and Output Vital Signs (last 24 hours): Temp Pulse Resp BP Pulse Ox 97.0 F L 89 19 107/54 L 95 12/03/17 16:42 12/03/17 16:42 12/03/17 16:42 12/03/17 17:42 12/03/17 16:42 Intake and Output: 12/03/17 12/04/17 18:59 06:59 Intake Total 205 Output Total 100 Balance 105 - Medications Medications: Current Medications Acetaminophen (Tylenol 325mg Tab) 650 mg PO TID PRN PRN Reason: Pain, moderate (4-7) Last Admin: 11/27/17 17:19 Dose: 650 mg Acetylcysteine (Acetylcysteine 20%) 3 ml INH Q8 [facility] Last Admin: 12/03/17 13:39 Dose: Not Given Apixaban (Eliquis) 2.5 mg PO BID [facility] PRN Reason: Protocol Last Admin: 12/03/17 10:16 Dose: 2.5 mg Aspirin (Ecotrin) 81 mg PO DAILY [facility] Last Admin: 12/03/17 10:16 Dose: 81 mg Budesonide (Pulmicort Respules) 0.5 mg IH Q8 [facility] Last Admin: 12/03/17 17:12 Dose: Not Given Calcium Acetate (Phoslo) 1,334 mg PO WM [facility] Last Admin: 11/30/17 10:39 Dose: Not Given Calcium Carbonate (Oscal) 1,000 mg PO TID [facility] Last Admin: 12/03/17 14:24 Dose: Not Given Digoxin (Lanoxin) 0.25 mg PO MWF [facility] Last Admin: 12/03/17 10:22 Dose: 0.25 mg Ergocalciferol (Drisdol 50,000 Intl Units Cap) 1 cap PO Q7D [facility] Last Admin: 11/27/17 07:06 Dose: 1 cap Meropenem 500 mg/ Sodium (Chloride) 50 mls @ 100 mls/hr IVPB Q24H [facility] PRN Reason: Protocol Last Admin: 12/03/17 13:36 Dose: 100 mls/hr Insulin Human Regular (Humulin R Low) 0 units SC ACHS [facility] PRN Reason: Protocol Last Admin: 12/03/17 17:14 Dose: Not Given Ipratropium [place] (Atrovent) 0.5 mg IH TIDRESP [facility] Last Admin: 12/03/17 13:39 Dose: Not Given Levothyroxine Sodium (Synthroid) 25 mcg PO 0600 [facility] Last Admin: 12/03/17 06:29 Dose: 25 mcg Pantoprazole Sodium (Protonix Ec Tab) 40 mg PO ACB [facility] Last Admin: 12/03/17 08:35 Dose: 40 mg Sodium Bicarbonate (Sodium Bicarbonate Tab) 1,300 mg PO TID [facility] Last Admin: 12/03/17 14:05 Dose: Not Given Tamsulosin HCl (Flomax) 0.8 mg PO DAILY [facility] Last Admin: 12/03/17 10:17 Dose: 0.8 mg - Labs Labs: 12/03/17 06:30 12/03/17 06:30 PT 26.5 SECONDS (9.4-12.5) H 11/30/17 10:05 INR 2.27 (0.93-1.08) H 11/30/17 10:05 APTT 50.3 Seconds (25.1-36.5) H 11/30/17 10:05 Assessment and Plan (1) Acute renal failure Status: Acute (2) CHF (congestive heart failure) Status: Acute (3) Metabolic acidosis Status: Acute (4) Vitamin D deficiency Status: Chronic (5) Sepsis Status: Acute
--- NOTE | 2017-12-03 23:47 | PN ---
DATE: 12/03/2017 PULMONARY PROGRESS NOTE REFERRING PHYSICIAN: Joy Bermudez MD. SUBJECTIVE: He is lying in the bed, head at 45 degrees. Night was unremarkable. No headache. No rhinitis. No chest pain. Did have abdominal discomfort. No leg swelling. OBJECTIVE: GENERAL: In no acute distress. VITAL SIGNS: Temp is 98, heart rate is 89, respiratory rate is 20, blood pressure 107/54, pulse ox 95% on nasal cannula. HEENT: Moist mucous membrane. No ulcer or thrush. NECK: Supple. No JVD. LUNGS: Have a few crackles at the bases. HEART: S1 and S2. ABDOMEN: Soft; but does have distention. EXTREMITIES: There is no edema. NEUROLOGICAL: Awake and alert. Follows simple command. MEDICATIONS: He is on Mucomyst inhaled twice a day; Atrovent inhaled three times a day; vitamin D one capsule every 7 days; Ecotrin 81 mg daily; Eliquis 2.5 mg twice a day; Flomax 0.8 mg daily; insulin coverage; digoxin 0.25 mg Sunday, Sunday, and Sunday; meropenem 500 mg every 24 hours; Os-Yifan 1000 mg three times a day; calcium acetate one tab meals; Protonix 40 mg a.c.b.; Pulmicort inhaled every 8 hours; bicarbonate 1300 mg three times a day; Synthroid 25 mcg daily; Tylenol p.r.n. basis. LABORATORY DATA: Shows hemoglobin 8.5, hematocrit 24.4, WBC 13.8, platelet count is 258. Sodium 132, potassium 3.9, chloride 103, bicarbonate is 19, BUN 76, creatinine 3.3, glucose 162, calcium is 7.1, magnesium 2. AST 23, ALT 18, alk phos is 94, albumin is 2.2. IMPRESSION AND PLAN: Pancreatic cancer, been on chemotherapy; severe cardiomyopathy with heart failure; renal failure; metabolic acidosis; anemia; electrolyte imbalance; gastrojejunostomy in the past; paroxysmal atrial fibrillation; coronary artery disease; nephrolithiasis; pleural effusion. Pulmonary point of view, doing okay. Keep head at 45 degrees. 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 Pulmonary toilets. May use p.r.n. supplemental oxygen. Out of bed to chair. Physical therapy. Thank you and we will follow with you. Bryan Mukherjee MD [facility] # [phone]
[2017-12-04] MEDS: Levothyroxine 25 MCG TAB PO SCH (06:14)
--- NOTE | 2017-12-04 07:01 | PN ---
DATE: 12/03/2017 SUBJECTIVE: Patient is seen and examined on the bedside, looking comfortable. No nausea, vomiting, or diarrhea. No hematuria or hematochezia. No swelling of the legs. No chest pain. No palpitation. He is also getting IV dobutamine and according to Cardiology, patient had good response to IV dobutamine. PHYSICAL EXAMINATION: VITAL SIGNS: Temperature 97, pulse 92, blood pressure 107/54, respiratory rate 19. HEENT: Head: Normocephalic and atraumatic. Eyes: PERRLA. Extraocular muscles are intact. Conjunctivae are clear. Nose: Patent. NECK: Supple. No carotid bruit, JVD, or thyromegaly. CHEST: Bilaterally symmetrical. HEART: S1 and S2 positive. LUNGS: Clear to auscultation. ABDOMEN: Soft. Bowel sounds present. No organomegaly. EXTREMITIES: No edema. No cyanosis. NEUROLOGIC: Patient is awake, alert. Moving all 4 extremities. No focal deficit. MEDICATIONS: Acetylcysteine, Atorvastatin, vitamin D, Ecotrin, Eliquis, Flomax, insulin, digoxin, meropenem, Os-Yifan, PhosLo, Protonix, Pulmicort, sodium bicarbonate, Synthroid, Tylenol. LABORATORY DATA: White blood cells 13.8, hemoglobin 8.5, hematocrit 24.4, platelets 258. Sodium 132, potassium 3.9, BUN 76, creatinine 3.3, glucose 115, calcium 7.1, bilirubin 1.5. ASSESSMENT AND PLAN: Mr. Franky Campuzano is a 66-year-old male with leukocytosis, anemia, renal insufficiency, hyperglycemia, hypocalcemia, proteinuria, hematuria, urinary tract infection, microalbuminuria, has a history of pancreatic cancer with metastasis, was getting chemotherapy from Dr. Rey and has poor nutrition, congestive heart failure, had Escherichia coli in the left leg wound. Escherichia coli sensitive to fluoroquinolones, and is on Levaquin. Sometimes, patient's mood changes, need supportive care. The patient on IV meropenem and got one dose of vancomycin. Leukocytosis is improving. 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 Has a history of congestive heart failure, metabolic acidosis, vitamin D deficiency, sepsis. Antibiotics as per Infectious Disease. History of transient hypotension, improved on IV dobutamine and Dr. Terrence Yoder discontinued the dobutamine. Dr. Terrence Yoder discontinued telemetry, transferred him to non-telemetry floor. May be discharge the patient back to his rehab. We will follow up with labs with Levaquin, gastrointestinal and deep venous thrombosis prophylaxis. Repeat labs. We will follow. Joy Nix MD [facility]
[2017-12-04] MEDS: Pantoprazole 40 mg EC Tab PO SCH (08:04)
[2017-12-04] MEDS: Insulin Reg-LOW-Coverage SC SCH ×2 (08:04→11:22)
[2017-12-04] MEDS: Acetylcysteine 20% Inhal Soln (4ml) INH SCH ×2 (08:07→13:12)
[2017-12-04] MEDS: Ipratropium 0.02% Inhal Soln (0.5 mg/2.5 ml) UD IH SCH ×2 (08:07→13:12)
[2017-12-04] MEDS: Budesonide 0.5 mg/2 ml Inhal Susp UD IH SCH ×2 (08:08→13:13)
[2017-12-04 08:23] VITALS: BP 101/64; PULSE 74; RESP 18; TEMP 97.4
[2017-12-04] MEDS: Ergocalciferol 50,000 Intl Units Cap PO SCH (11:11)
--- NOTE | 2017-12-04 11:38 | PN ---
DATE: 12/04/2017 CARDIOLOGY FOLLOWUP SUBJECTIVE: The patient is awake, alert. No shortness of breath. PHYSICAL EXAMINATION: VITAL SIGNS: Blood pressure is 101/64, the heart rates in the 70s. NECK: Negative JVD. LUNGS: Without rales. HEART: Reveals S1, S2. EXTREMITIES: Without edema. LABORATORY DATA: Hemoglobin is 8.4. BUN and creatinine are 76 and 3.3, glucose is 119. IMPRESSION: 1. Transient hypotension, which is now resolved. 2. End-stage dilated cardiomyopathy. 3. Pancreatic carcinoma. 4. Anemia. 5. Resolution of hypotension. Given these findings, from a cardiac perspective, the patient can be discharged. The patient is on Eliquis. Would go back to Lasix 40 p.o. daily. Terrence Yoder MD
[2017-12-04] MEDS: Meropenem 500 MG in Sodium Chloride 0.9% 50 ML IVPB SCH (14:31)
--- NOTE | 2017-12-04 15:44 | CP.PCM.PN ---
Subjective - Date & Time of Evaluation Date of Evaluation: 12/04/17 Time of Evaluation: 13:30 - Subjective Subjective: Infectious Disease Follow Up: December 04, 2017 66 yo male with extensive PMHx of pancreatic cancer (on chemo, s/p gastrojejunostomy due to gastric outlet obstruction by Dr. Dsouza, and pancreatic stent placement by Dr. Dorantes, not a surgical candidate for pancreatic surgery), Atrial fibrillation, CAD, Right tinnitus, DM Type 2, and nephrolithiasis. Sent initially to [facility] from [facility] for suicidal ideation. The last hospitalization at [facility], the patient had jaundice secondary to an obstructed stent and MAGALY. Discharged to [facility] on 11/01/2017 after IR percutaneous drainage and improvement in liver functions. He is no longer stating suicidal thoughts at this current times. Wound cultures showing E. Coli that was highly sensitive to most antibiotics. Was on Rocephin and switched to Levaquin for antibiotic treatment. Remains on Levaquin for treatment. Noted Renal Scan. Can consider repeat urine cultures. No new complaint by the patient. Creatinine remains at 3.5 today. Leukocytosis had steadily increased to 23.8 but has slightly improved to 17.5 today. Yesterday morning the patient became hypotensive. On dobutamine drip since 11/30/2017. Making small amounts of urine. Patient remains very grumpy. Objective - Vital Signs/Intake and Output Vital Signs (last 24 hours): Temp Pulse Resp BP Pulse Ox 97.4 F L 74 18 101/64 95 12/04/17 08:22 12/04/17 08:22 12/04/17 08:22 12/04/17 08:22 12/04/17 08:22 Intake and Output: 12/04/17 12/04/17 06:59 18:59 Intake Total 640 Output Total 475 600 Balance -475 40 - Medications Medications: Current Medications Acetaminophen (Tylenol 325mg Tab) 650 mg PO TID PRN PRN Reason: Pain, moderate (4-7) Last Admin: 11/27/17 17:19 Dose: 650 mg Acetylcysteine (Acetylcysteine 20%) 3 ml INH Q8 [facility] Last Admin: 12/04/17 13:12 Dose: Not Given Apixaban (Eliquis) 2.5 mg PO BID [facility] PRN Reason: Protocol Last Admin: 12/04/17 11:10 Dose: 2.5 mg Aspirin (Ecotrin) 81 mg PO DAILY [facility] Last Admin: 12/04/17 11:11 Dose: Not Given Budesonide (Pulmicort Respules) 0.5 mg IH Q8 [facility] Last Admin: 12/04/17 13:13 Dose: Not Given Calcium Acetate (Phoslo) 1,334 mg PO WM [facility] Last Admin: 11/30/17 10:39 Dose: Not Given Calcium Carbonate (Oscal) 1,000 mg PO TID [facility] Last Admin: 12/04/17 14:31 Dose: Not Given Digoxin (Lanoxin) 0.25 mg PO MWF [facility] Last Admin: 12/03/17 10:22 Dose: 0.25 mg Ergocalciferol (Drisdol 50,000 Intl Units Cap) 1 cap PO Q7D [facility] Last Admin: 12/04/17 11:11 Dose: Not Given Meropenem 500 mg/ Sodium (Chloride) 50 mls @ 100 mls/hr IVPB Q24H [facility] PRN Reason: Protocol Last Admin: 12/04/17 14:31 Dose: Not Given Insulin Human Regular (Humulin R Low) 0 units SC ACHS [facility] PRN Reason: Protocol Last Admin: 12/04/17 11:22 Dose: Not Given Ipratropium [place] (Atrovent) 0.5 mg IH TIDRESP [facility] Last Admin: 12/04/17 13:12 Dose: Not Given Levothyroxine Sodium (Synthroid) 25 mcg PO 0600 [facility] Last Admin: 12/04/17 06:14 Dose: 25 mcg Pantoprazole Sodium (Protonix Ec Tab) 40 mg PO ACB [facility] Last Admin: 12/04/17 08:04 Dose: Not Given Sodium Bicarbonate (Sodium Bicarbonate Tab) 1,300 mg PO TID [facility] Last Admin: 12/04/17 14:31 Dose: Not Given Tamsulosin HCl (Flomax) 0.8 mg PO DAILY [facility] Last Admin: 12/04/17 11:11 Dose: Not Given Torsemide (Demadex) 40 mg PO DAILY [facility] Last Admin: 12/04/17 14:31 Dose: Not Given - Labs Labs: 12/03/17 06:30 12/03/17 06:30 PT 26.5 SECONDS (9.4-12.5) H 11/30/17 10:05 INR 2.27 (0.93-1.08) H 11/30/17 10:05 APTT 50.3 Seconds (25.1-36.5) H 11/30/17 10:05 - Constitutional Appears: Non-toxic, No Acute Distress, Chronically Ill - Head Exam Head Exam: ATRAUMATIC, NORMOCEPHALIC - Eye Exam Eye Exam: EOMI, PERRL Pupil Exam: NORMAL ACCOMODATION, PERRL - ENT Exam ENT Exam: Mucous Membranes Moist, Normal External Ear Exam, TM's Normal Bilaterally - Neck Exam Neck Exam: Full ROM, Normal Inspection - Respiratory Exam Respiratory Exam: Clear to Ausculation Bilateral, NORMAL BREATHING PATTERN. absent: Rales, Rhonchi, Wheezes - Cardiovascular Exam Cardiovascular Exam: REGULAR RHYTHM, RRR, +S1, +S2 - GI/Abdominal Exam GI & Abdominal Exam: Soft, Normal Bowel Sounds. absent: Distended, Tenderness - Extremities Exam Additional comments: +3 edema - Neurological Exam Neurological Exam: Alert, Awake, CN II-XII Intact, Oriented x3 Additional comments: still overall fatigued and weak. - Psychiatric Exam Psychiatric exam: Depressed, Normal Affect - Skin Additional comments: As Above. Assessment and Plan - Assessment and Plan (Free Text) Assessment: 66 yo male with multiple medical issues including MAGALY, poor nutrition , CHF, FTT, and pancreatic cancer. The patient found to have E. coli in his left leg wounds. E. coli sensitive to Fluoroquinolones. Would consider Levaquin dosing despite renal issues given high bioavailability of drug even in its oral form and high tissue penetrance. The patient can be uncooperative at times. This can be due to the poor outlook of his pancreatic malignancy. Supportive care. Currently on IV Meropenem and had one dose of Vancomycin IV. The creatinine is at 3.4. On Dobutamine drip at this time. Bilateral leg edema /anasarca. Cultures of the blood are negative at 24 hours. Leukocytosis has improved to 13.8. Local wound care. Noted the patient is being evaluated for the renal failure. Consider use of Keflex when ready for discharge. Patient had E. coli that was sensitive to multiple antibiotics. Thank you for allowing me to participate in the care of the patient, we will follow with you.
--- NOTE | 2017-12-04 17:36 | RAD ---
PROCEDURE: Radiographs of the Mandible HISTORY: right side lump COMPARISON: None available. TECHNIQUE: Multiple radiographs of the mandible were obtained. FINDINGS: Technically limited examination. Mandible intact, without frature or focal lesion. No temporomandibular joint dislocation. To the extent visualized on this study, the remainder of the facial bones are grossly intact. IMPRESSION: Unremarkable radiographs of the mandible. Technically limited.
--- NOTE | 2017-12-04 19:11 | CP.PCM.PN ---
Subjective - Date & Time of Evaluation Date of Evaluation: 12/04/17 Time of Evaluation: 11:30 - Subjective Subjective: Patient reports urinating a lot overnight; no shortness of breath; Objective - Vital Signs/Intake and Output Vital Signs (last 24 hours): Temp Pulse Resp BP Pulse Ox 97.4 F L 74 18 101/64 95 12/04/17 08:22 12/04/17 08:22 12/04/17 08:22 12/04/17 08:22 12/04/17 08:22 Intake and Output: 12/04/17 12/05/17 18:59 06:59 Intake Total 640 Output Total 600 Balance 40 - Medications Medications: Current Medications Acetaminophen (Tylenol 325mg Tab) 650 mg PO TID PRN PRN Reason: Pain, moderate (4-7) Last Admin: 11/27/17 17:19 Dose: 650 mg Acetylcysteine (Acetylcysteine 20%) 3 ml INH Q8 [facility] Last Admin: 12/04/17 13:12 Dose: Not Given Apixaban (Eliquis) 2.5 mg PO BID [facility] PRN Reason: Protocol Last Admin: 12/04/17 11:10 Dose: 2.5 mg Aspirin (Ecotrin) 81 mg PO DAILY [facility] Last Admin: 12/04/17 11:11 Dose: Not Given Budesonide (Pulmicort Respules) 0.5 mg IH Q8 [facility] Last Admin: 12/04/17 13:13 Dose: Not Given Calcium Acetate (Phoslo) 1,334 mg PO WM [facility] Last Admin: 11/30/17 10:39 Dose: Not Given Calcium Carbonate (Oscal) 1,000 mg PO TID [facility] Last Admin: 12/04/17 14:31 Dose: Not Given Digoxin (Lanoxin) 0.25 mg PO MWF [facility] Last Admin: 12/03/17 10:22 Dose: 0.25 mg Ergocalciferol (Drisdol 50,000 Intl Units Cap) 1 cap PO Q7D [facility] Last Admin: 12/04/17 11:11 Dose: Not Given Meropenem 500 mg/ Sodium (Chloride) 50 mls @ 100 mls/hr IVPB Q24H [facility] PRN Reason: Protocol Last Admin: 12/04/17 14:31 Dose: Not Given Insulin Human Regular (Humulin R Low) 0 units SC ACHS [facility] PRN Reason: Protocol Last Admin: 12/04/17 11:22 Dose: Not Given Ipratropium [place] (Atrovent) 0.5 mg IH TIDRESP [facility] Last Admin: 12/04/17 13:12 Dose: Not Given Levothyroxine Sodium (Synthroid) 25 mcg PO 0600 [facility] Last Admin: 12/04/17 06:14 Dose: 25 mcg Pantoprazole Sodium (Protonix Ec Tab) 40 mg PO ACB [facility] Last Admin: 12/04/17 08:04 Dose: Not Given Sodium Bicarbonate (Sodium Bicarbonate Tab) 1,300 mg PO TID [facility] Last Admin: 12/04/17 14:31 Dose: Not Given Tamsulosin HCl (Flomax) 0.8 mg PO DAILY [facility] Last Admin: 12/04/17 11:11 Dose: Not Given Torsemide (Demadex) 40 mg PO DAILY [facility] Last Admin: 12/04/17 14:31 Dose: Not Given - Labs Labs: 12/03/17 06:30 12/03/17 06:30 PT 26.5 SECONDS (9.4-12.5) H 11/30/17 10:05 INR 2.27 (0.93-1.08) H 11/30/17 10:05 APTT 50.3 Seconds (25.1-36.5) H 11/30/17 10:05 - Constitutional Appears: Chronically Ill - Respiratory Exam Respiratory Exam: Clear to Ausculation Bilateral. absent: Respiratory Distress - Cardiovascular Exam Cardiovascular Exam: +S1, +S2. absent: Gallop - GI/Abdominal Exam GI & Abdominal Exam: Soft. absent: Tenderness - Extremities Exam Additional comments: markedly edematous, anasarca; - Neurological Exam Neurological Exam: Alert, Awake - Psychiatric Exam Psychiatric exam: Normal Mood. absent: Agitated - Skin Skin Exam: Warm. absent: Cyanosis Assessment and Plan (1) Acute renal failure Assessment & Plan: MAGALY with multiple insults; serum creatinine with minimal improvement over past 2 days; didn't improve much on dobutamine drip; UO responding to high doses of IV lasix; With relatively stable volume and electrolyte status (no dyspnea at rest); recommend to continue diuretics at d/c (and will need high doses given renal failure); -starting torsemide PO 40 mg daily; -continue to avoid nephrotoxic agents; -should have chem panel at rehab facility at least once a week; Status: Acute (2) CHF (congestive heart failure) Assessment & Plan: Acute severely decompensated systolic CHF; no improvement with inotropic agent due to advanced renal failure; relatively stable for d/c to rehab; continue diuretics as above; Status: Acute (3) Metabolic acidosis Assessment & Plan: Overall stable but need to continue PO sodium bicarb as outpatient; Status: Acute (4) Vitamin D deficiency Assessment & Plan: With low/normal Ca; continue ergocalciferol 50,000 u weekly; Status: Chronic (5) Sepsis Assessment & Plan: Currently on meropenem, dosed for CrCl < 20; should dose outpatient abx accordingly as well; Status: Acute
== END 2017-12-04 17:25 | DRG 872 ==
LOC: ED 15:03 → ERH 18:58 → 3RNO 22:27 → 2RSO 11-30 14:40 → 3RNO 12-03 11:18
PROVIDERS: ADMIT Internal Medicine; ATTEND Internal Medicine
PROC: 0F793DZ Dilation of Common Bile Duct with Intraluminal Device, Percutaneous Approach (ICD-10-PCS; principal; 2017-11-26)
DX: A41.9 Sepsis, unspecified organism (principal); C25.9 Malignant neoplasm of pancreas, unspecified; E87.1 Hypo-osmolality and hyponatremia; E87.2 Acidosis; I13.0 Hypertensive heart and chronic kidney disease with heart failure and stage 1 through stage 4 chronic kidney disease, or unspecified chronic kidney disease; I42.0 Dilated cardiomyopathy; I47.2 Ventricular tachycardia; I50.22 Chronic systolic (congestive) heart failure; K31.1 Adult hypertrophic pyloric stenosis; K92.2 Gastrointestinal hemorrhage, unspecified; L97.929 Non-pressure chronic ulcer of unspecified part of left lower leg with unspecified severity; N17.9 Acute kidney failure, unspecified; N39.0 Urinary tract infection, site not specified; R18.8 Other ascites; R45.851 Suicidal ideations; D64.9 Anemia, unspecified; D72.819 Decreased white blood cell count, unspecified; E03.9 Hypothyroidism, unspecified; E11.622 Type 2 diabetes mellitus with other skin ulcer; E11.649 Type 2 diabetes mellitus with hypoglycemia without coma; E11.65 Type 2 diabetes mellitus with hyperglycemia; E55.9 Vitamin D deficiency, unspecified; E83.39 Other disorders of phosphorus metabolism; E83.51 Hypocalcemia; E86.1 Hypovolemia; E87.5 Hyperkalemia; E87.8 Other disorders of electrolyte and fluid balance, not elsewhere classified; F32.89 Other specified depressive episodes; G47.00 Insomnia, unspecified; I25.10 Atherosclerotic heart disease of native coronary artery without angina pectoris; I34.0 Nonrheumatic mitral (valve) insufficiency; I48.0 Paroxysmal atrial fibrillation; I48.2 Chronic atrial fibrillation; K21.9 Gastro-esophageal reflux disease without esophagitis; K22.70 Barrett's esophagus without dysplasia; K59.00 Constipation, unspecified; N13.729 Vesicoureteral-reflux with reflux nephropathy without hydroureter, unspecified; N18.9 Chronic kidney disease, unspecified; N20.0 Calculus of kidney; N40.0 Benign prostatic hyperplasia without lower urinary tract symptoms; Z79.01 Long term (current) use of anticoagulants; Z87.19 Personal history of other diseases of the digestive system; Z87.01 Personal history of pneumonia (recurrent); Z87.442 Personal history of urinary calculi; Z87.891 Personal history of nicotine dependence; Z95.5 Presence of coronary angioplasty implant and graft; Z92.21 Personal history of antineoplastic chemotherapy; Z80.41 Family history of malignant neoplasm of ovary; F12.11 Cannabis abuse, in remission

== ENCOUNTER 2017-12-09 16:28 | Inpatient (IN) | payer MEDICARE, OTHER ==
[2017-12-09 16:39] VITALS: BMI 23.9
--- NOTE | 2017-12-09 18:00 | RAD ---
HISTORY: sob COMPARISON: 11/30/2017 FINDINGS: LUNGS: No active pulmonary disease. PLEURA: There is a large right pleural effusion. There is minimal aerated lung on the right. The fusion has increased in size CARDIOVASCULAR: Normal. OSSEOUS STRUCTURES: No significant abnormalities. VISUALIZED UPPER ABDOMEN: Normal. OTHER FINDINGS: None. IMPRESSION: Large right pleural effusion increased from earlier study.
--- NOTE | 2017-12-09 18:46 | ED PDOC ---
Arrival/HPI - General Chief Complaint: Finger,Hand,&Wrist Time Seen by Provider: 12/09/17 16:43 Historian: Patient - History of Present Illness Narrative History of Present Illness (Text): 12/09/17 18:57 Patient is a 66 yo male presents to ED from assisted with history of discoloration and pain to right hand finger as well as "low blood pressure" and "low oxygen levels" as per assisted. Patient denies chest pain or shortness of breath. Denies abdominal pain. Patient states that he has intermittent discoloration to his finger on and off since April of last year. Denies trauma. Denies bleeding or drainage. Time/Duration: Prior to Arrival Symptom Onset: Gradual Past Medical History - Past History Past History: No Previous - Infectious Disease Hx of Infectious Diseases: None - Tetanus Immunization Tetanus Immunization: Unknown - Cardiac Hx Pacemaker: No - Pulmonary Hx Respiratory Disorders: Yes (LUNG NODULE.SMOKED CIGARETTES-QUIT 1973. <PK. SMOKED MARIJUANA.LAST 2014) Hx Pneumonia: Yes - Neurological Hx Paralysis: No - HEENT Hx HEENT Disorder: No - Renal Hx Renal Disorder: Yes Hx Kidney Stones: Yes - Endocrine/Metabolic Hx Diabetes Mellitus Type 2: Yes - Hematological/Oncological Hx Blood Transfusions: No Hx Blood Transfusion Reaction: No Hx Cancer: Yes (Pancreatic) - Integumentary Hx Dermatological Disorder: Yes - Musculoskeletal/Rheumatological Hx Musculoskeletal Disorders: No - Gastrointestinal Hx Gastrointestinal Disorders: Yes Hx Gastroesophageal Reflux: Yes Other/Comment: esophageal ulcers, esophageal polyp. food bezoar, duodenal gstric outlet obstruction, barretts esophagus, gi bleed, constipation, nausea - Genitourinary/Gynecological Hx Genitourinary Disorders: No Hx Prostate Problems: Yes - Psychiatric Hx Emotional Abuse: No Hx Physical Abuse: No Hx Substance Use: Yes (MARIJUANA. LAST SMOKED LAST 2014) - Past Surgical History Past Surgical History: No Previous - Surgical History Hx Coronary Stent: Yes (03/2013) Other/Comment: ? Stent on Gallbladder. ? Stomach bypass sx - Anesthesia Hx Anesthesia Reactions: No Hx Malignant Hyperthermia: No - Suicidal Assessment Feels Threatened In Home Enviroment: No Family/Social History Family/Social History: Unknown Family HX Smoking Status: Former Smoker Hx Alcohol Use: Yes (OCCASIONAL DRINKS) Hx Substance Use: Yes (MARIJUANA. LAST SMOKED LAST 2014) Hx Substance Use Treatment: No Allergies/Home Meds Allergies/Adverse Reactions: Allergies iv tape Allergy (Mild, Uncoded 12/09/17 16:37) RASH Home Medications: Home Meds Medication Instructions Recorded Confirmed Pantoprazole [Protonix EC Tab] 40 mg PO ACB PRN 10/17/17 10/17/17 Review of Systems - Review of Systems Constitutional: Fatigue. absent: Fevers Eyes: absent: Vision Changes ENT: absent: Hearing Changes Respiratory: absent: SOB, Cough Cardiovascular: OROSCO. absent: Chest Pain, Palpitations, Edema, Calf Pain Gastrointestinal: Appetite Changes. absent: Abdominal Pain, Nausea, Vomiting Genitourinary Male: absent: Dysuria Musculoskeletal: absent: Back Pain Skin: Other (discoloration to right hand digit) Neurological: absent: Dizziness, Focal Weakness Endocrine: absent: Polyuria Hemo/Lymphatic: absent: Easy Bleeding Psychiatric: absent: Depression Physical Exam Vital Signs Reviewed: Yes Vital Signs Temp Pulse Resp BP Pulse Ox 12/09/17 16:39 97.6 F 86 22 106/70 99 12/09/17 16:37 97.6 F 86 22 106/70 99 Temperature: Afebrile Blood Pressure: Hypotensive Pulse: Regular Respiratory Rate: Normal Appearance: Positive for: Non-Toxic Pain Distress: None Mental Status: Positive for: Alert and Oriented X 3 - Systems Exam Head: Present: Atraumatic Pupils: Present: PERRL Mouth: Present: Moist Mucous Membranes Pharnyx: No: ERYTHEMA Neck: Present: Normal Range of Motion. No: Meningeal Signs Respiratory/Chest: Present: Other (diminished breath sound right lung). No: Respiratory Distress Cardiovascular: Present: Regular Rate and Rhythm, Murmurs Abdomen: Present: Distention. No: Tenderness Rectal: No: Gross Blood, Melena Back: No: CVA Tenderness, Midline Tenderness Upper Extremity: Present: Other (no edema, there is diminished cap refill and cyanotic discoloration to right third digit distal to DIP join no erythema or bleeding or pus or drainage) Lower Extremity: Present: Neurovascularly Intact. No: Edema, CALF TENDERNESS Neurological: Present: Motor Func Grossly Intact, Normal Sensory Function Skin: Present: Pale Psychiatric: Present: Alert, Oriented x 3, Normal Insight, Normal Concentration Medical Decision Making ED Course and Treatment: 12/09/17 19:01 Patient on current exam is comfortable, DENIES shortness of breath. On nasal cannula oxygen saturations is 99% and patient with repeat SBP of 110. He denies pain or discomfort. I suspect right digit distal discoloration secondary to vascular insufficiency although by history this has been intermittent for several months, a radial pulse is palpated, and I do not appreciate any cellulitis at this time. CXR with large right pleural effusion, patient not in respiratory distress although we will plan to admit and consult Terrence Dorantes. Patient's PMD is Dr. Nix, she will be updated with findings and plan for admission. Case endorsed to Dr. Miranda for review of labs and reassessment, final disposition - Lab Interpretations Lab Results: 12/09/17 18:24 12/09/17 18:24 Lab Results 12/09/17 18:24: pO2 50, VBG pH 7.34, VBG pCO2 41.0, VBG HCO3 22.1, VBG Total CO2 23.4, VBG O2 Sat (Calc) 87.7 H, VBG Base Excess -3.5 L, VBG Potassium 4.1, Sodium 135.0, Chloride 104.0, Glucose 84, Lactate 1.4, FiO2 21.0, Venous Blood Potassium 4.1 12/09/17 18:24: WBC 12.2 H, RBC 2.37 L, Hgb 7.2 L, Hct 20.8 L*, MCV 87.8, MCH 30.4, MCHC 34.6, RDW 14.7 H, Plt Count 280, MPV 8.9, Gran % 83.1 H, Lymph % ( Auto) 6.2 L, [place] % (Auto) 9.4 H, Eos % (Auto) 1.2 L, Baso % (Auto) 0.1, Gran # 10.12 H, Lymph # (Auto) 0.8 L, [place] # (Auto) 1.1 H, Eos # (Auto) 0.2, Baso # ( Auto) 0.01 12/09/17 18:24: Sodium 138, Chloride 106, Potassium 4.1, Carbon Dioxide 21, Anion Gap 15, BUN 66 H, Creatinine 2.3 H, Est GFR ( Amer) 34, Est GFR ( Non-Af Amer) 29, Random Glucose 84, Calcium 6.9 L*, Total Bilirubin 1.6 H, AST 16 L D, ALT 23, Alkaline Phosphatase 91, Lactate Dehydrogenase 349, Total Creatine Kinase 24 L, Troponin I Pending, NT-Pro-B Natriuret Pep Pending, Total Protein 6.3, Albumin 2.2 L, Globulin 4.0, Albumin/Globulin Ratio 0.6 L - RAD Interpretation Radiology Orders: 12/09/17 17:04 CHEST PORTABLE [RAD] Stat Final Assembler Boat: Radiologist - EKG Interpretation EKG Interpretation (Text): 12/09/17 19:06 atrial fibrillation rate of 89 Interpreted by ED Physician: Yes Type: 12 lead EKG Disposition/Present on Arrival - Present on Arrival Any Indicators Present on Arrival: No History of DVT/PE: No History of Uncontrolled Diabetes: No Urinary Catheter: No History of Decub. Ulcer: No History Surgical Site Infection Following: None - Disposition Have Diagnosis and Disposition been Completed?: Yes Diagnosis: Pleural effusion, right, Anemia Disposition: HOSPITALIZED Disposition Time: 19:00 Patient Plan: Admission Patient Problems: Current Active Problems Problem Status Onset Pleural effusion, right Acute Condition: SERIOUS Referrals: Pop Zelaya MD [Primary Care Provider] - Follow up with primary Forms: Zong (Stateless)
[2017-12-09 19:00] LABS: VENOUS BLOOD GAS BASE EXCESS -3.5 mmol/L (0.0-2.0); VENOUS BLOOD GAS PO2 50 mm/Hg (30-55); VENOUS BLOOD PH 7.34 (7.32-7.43)
[2017-12-09 19:03] LABS: BASO # 0.01 K/mm3 (0.0-2.0); BASO % 0.1 % (0.0-3.0); EOS # 0.2 (0.0-0.7); EOS % 1.2 % (1.5-5.0); GRAN # 10.12 (1.4-6.5); GRAN % 83.1 % (50.0-68.0); HEMOGLOBIN 7.2 g/dL (14.0-18.0); LYMPH # 0.8 (1.2-3.4); LYMPH % 6.2 % (22.0-35.0); MEAN CELL VOLUME 87.8 fl (80.0-105.0); MEAN CORPUSCULAR HEMOGLOBIN 30.4 pg (25.0-35.0); MEAN CORPUSCULAR HGB CONC 34.6 g/dl (31.0-37.0); MEAN PLATELET VOLUME 8.9 fl (7.0-11.0); MONO # 1.1 (0.1-0.6); MONO % 9.4 % (1.0-6.0); RBC 2.37 10^6/uL (3.5-6.1); RED CELL DISTRIBUTION WIDTH 14.7 % (11.5-14.5); WHITE BLOOD COUNT 12.2 10^3/ul (4.5-11.0)
[2017-12-09 19:10] LABS: ALB/GLOB RATIO 0.6 (1.1-1.8); ALBUMIN 2.2 g/dL (3.0-4.8); ALT/SGPT 23 U/L (7-56); AST/SGOT 16 U/L (17-59); BLOOD UREA NITROGEN 66 mg/dL (7-21); CALCIUM 6.9 mg/dL (8.4-10.5); GFR AFRICAN-AMERICAN 34; GFR NON-AFRICAN AMERICAN 29
[2017-12-09 19:11] LABS: INR 1.47 (0.93-1.08); PARTIAL THROMBOPLASTIN TIME 44.5 Seconds (25.1-36.5); PROTHROMBIN TIME 16.9 SECONDS (9.4-12.5)
[2017-12-09 19:12] LABS: B-TYPE NATRIURETIC PEPTIDE 19400 pg/mL (0-450); TROPONIN I < 0.01 ng/mL
--- NOTE | 2017-12-09 19:29 | ED PDOC ---
Physical Exam Vital Signs Temp Pulse Resp BP Pulse Ox 12/09/17 19:20 102 H 20 107/77 100 12/09/17 16:39 97.6 F 86 22 106/70 99 12/09/17 16:37 97.6 F 86 22 106/70 99 Medical Decision Making ED Course and Treatment: 12/09/17 19:26 Patient signed out to me by Dr. Suggs. Pending completion of labs/ICU consult.From [place] for evaluation of low BP,cyanotic distal fingertip.Pt. with PMHX pancreatic CA,renal and hepatic insufficiency,atrial fibrillation on anticoagulation.Currently stable.No complaints offered.Pt. to be transfused PRBC for anemic state. 12/09/17 20:00 Pt. seen and evaluated by the medical transcription editor and reinforced concrete inspector .States pt. stable for Telemetry admission.Calls placed to PMD service. 12/09/17 20:[address] Nix, who is aware and agrees with plan. Accepts pt into her service. Dr. Dorantes, Dr. Gates, and Dr. Mukherjee on consult. - Lab Interpretations Lab Results: 12/09/17 18:24 12/09/17 18:24 Lab Results 12/09/17 18:24: Digoxin 0.9 12/09/17 18:24: pO2 50, VBG pH 7.34, VBG pCO2 41.0, VBG HCO3 22.1, VBG Total CO2 23.4, VBG O2 Sat (Calc) 87.7 H, VBG Base Excess -3.5 L, VBG Potassium 4.1, Sodium 135.0, Chloride 104.0, Glucose 84, Lactate 1.4, FiO2 21.0, Venous Blood Potassium 4.1 12/09/17 18:24: PT 16.9 H, INR 1.47 H, APTT 44.5 H 12/09/17 18:24: WBC 12.2 H, RBC 2.37 L, Hgb 7.2 L, Hct 20.8 L*, MCV 87.8, MCH 30.4, MCHC 34.6, RDW 14.7 H, Plt Count 280, MPV 8.9, Gran % 83.1 H, Lymph % ( Auto) 6.2 L, [place] % (Auto) 9.4 H, Eos % (Auto) 1.2 L, Baso % (Auto) 0.1, Gran # 10.12 H, Lymph # (Auto) 0.8 L, [place] # (Auto) 1.1 H, Eos # (Auto) 0.2, Baso # ( Auto) 0.01 12/09/17 18:24: Sodium 138, Chloride 106, Potassium 4.1, Carbon Dioxide 21, Anion Gap 15, BUN 66 H, Creatinine 2.3 H, Est GFR ( Amer) 34, Est GFR ( Non-Af Amer) 29, Random Glucose 84, Calcium 6.9 L*, Total Bilirubin 1.6 H, AST 16 L D, ALT 23, Alkaline Phosphatase 91, Lactate Dehydrogenase 349, Total Creatine Kinase 24 L, Troponin I < 0.01 D, NT-Pro-B Natriuret Pep 23508 H, Total Protein 6.3, Albumin 2.2 L, Globulin 4.0, Albumin/Globulin Ratio 0.6 L - RAD Interpretation Radiology Orders: 12/09/17 17:04 CHEST PORTABLE [RAD] Stat - Medication Orders Current Medication Orders: Discontinued Medications Calcium Carbonate (Oscal) 500 mg PO ONCE ONE Stop: 12/09/17 20:26 - Scribe Statement The provider has reviewed the documentation as recorded by the Scribmaryann Jordan All medical record entries made by the Liudmilaibmaryann were at my direction and personally dictated by me. I have reviewed the chart and agree that the record accurately reflects my personal performance of the history, physical exam, medical decision making, and the department course for this patient. I have also personally directed, reviewed, and agree with the discharge instructions and disposition. Disposition/Present on Arrival - Present on Arrival Any Indicators Present on Arrival: No History of DVT/PE: No History of Uncontrolled Diabetes: No Urinary Catheter: No History of Decub. Ulcer: No History Surgical Site Infection Following: None - Disposition Have Diagnosis and Disposition been Completed?: Yes Diagnosis: Pleural effusion, right, Anemia, Pancreatic cancer Disposition: HOSPITALIZED Disposition Time: 20:18 Patient Plan: Admission Patient Problems: Current Active Problems Problem Status Onset Anemia Acute Pleural effusion, right Acute Pancreatic cancer Chronic Condition: STABLE
--- NOTE | 2017-12-09 20:50 | CP.PCM.CON ---
<Arben Wright - Last Filed: 12/09/17 21:16> History of Present Illness - History of Present Illness History of Present Illness: ICU consult note: 66yo M with PMH pancreatic CA (on chemo, s/p gastrojejunostomy due to gastric outlet obstruction, and pancreatic stent placement, not a surgical candidate for pancreatic surgery), Afib (on Dig), CAD s/p stent, and DM2 presents to ED from senior care pain to right index finger, low blood pressure and low oxygen. Patient is a poor historian however patient states that he came to the ED just for painful R index finger that has been present today. Patient does not recall at this time any hypotensive episodes at the senior care. He denies any headache, dizziness, sob, cp, abd pain, n/v/d, melena or hematochezia. ROS: 12 point ROS obtained and negative except as per HPI PMH: Pancreatic CA, Afib, CAD s/p stent, R tinnitus, DM2 PSH: Gastrojejunostomy, pancreatic stent, cardiac stent Meds: As per MAR Allergies: Tape on IV SHx: Former smoker, ETOH and former marijuana user Review of Systems - Review of Systems All systems: reviewed and no additional remarkable complaints except (HPI) Past Patient History - Infectious Disease Hx of Infectious Diseases: None - Tetanus Immunizations Tetanus Immunization: Unknown - Past Medical History & Family History Past Medical History?: Yes - Past Social History Smoking Status: Former Smoker - CARDIAC Hx Pacemaker: No - PULMONARY Hx Respiratory Disorders: Yes (LUNG NODULE.SMOKED CIGARETTES-QUIT 1973. <PK. SMOKED MARIJUANA.LAST 2014) Hx Pneumonia: Yes - NEUROLOGICAL Hx Paralysis: No - HEENT Hx HEENT Problems: No - RENAL Hx Chronic Kidney Disease: Yes Hx Kidney Stones: Yes - ENDOCRINE/METABOLIC Hx Diabetes Mellitus Type 2: Yes - HEMATOLOGICAL/ONCOLOGICAL Hx Blood Transfusions: No Hx Blood Transfusion Reaction: No Hx Cancer: Yes (Pancreatic) - INTEGUMENTARY Hx Dermatological Problems: Yes - MUSCULOSKELETAL/RHEUMATOLOGICAL Hx Musculoskeletal Disorders: No - GASTROINTESTINAL Hx Gastrointestinal Disorders: Yes Hx Gastroesophageal Reflux: Yes Other/Comment: esophageal ulcers, esophageal polyp. food bezoar, duodenal gstric outlet obstruction, barretts esophagus, gi bleed, constipation, nausea - GENITOURINARY/GYNECOLOGICAL Hx Genitourinary Disorders: No Hx Prostate Problems: Yes - PSYCHIATRIC Hx Emotional Abuse: No Hx Physical Abuse: No Hx Substance Use: Yes (MARIJUANA. LAST SMOKED LAST YR 2014) - SURGICAL HISTORY Hx Coronary Stent: Yes (03/2013) Other/Comment: ? Stent on Gallbladder. ? Stomach bypass sx - ANESTHESIA Hx Anesthesia Reactions: No Hx Malignant Hyperthermia: No Meds Allergies/Adverse Reactions: Allergies Allergy/AdvReac Type Severity Reaction Status Date / Time iv tape Allergy Mild RASH Uncoded 12/09/17 16:37 Physical Exam - Constitutional Appears: No Acute Distress - Head Exam Head Exam: ATRAUMATIC, NORMOCEPHALIC - Eye Exam Eye Exam: EOMI, PERRL Pupil Exam: NORMAL ACCOMODATION - ENT Exam ENT Exam: Mucous Membranes Moist - Respiratory Exam Respiratory Exam: Clear to Auscultation Bilateral. absent: Wheezes - Cardiovascular Exam Cardiovascular Exam: REGULAR RHYTHM, RRR, +S1, +S2 - GI/Abdominal Exam GI & Abdominal Exam: Normal Bowel Sounds, Soft. absent: Rigid, Tenderness - Extremities Exam Extremities exam: Negative for: calf tenderness, pedal edema Additional comments: Patient did not want to be examine hi R index finger at this time since it was "under blanket and it just warmed up" - Neurological Exam Neurological exam: Alert, CN II-XII Intact, Oriented x3 - Psychiatric Exam Psychiatric exam: Normal Mood - Skin Skin Exam: Dry Results - Vital Signs Recent Vital Signs: Last Vital Signs Temp 97.6 F 12/09/17 16:39 Pulse 102 H 12/09/17 19:20 Resp 20 12/09/17 19:20 BP 107/77 12/09/17 19:20 Pulse Ox 100 12/09/17 19:20 - Labs Result Diagrams: 12/09/17 18:24 12/09/17 18:24 Assessment & Plan - Assessment and Plan (Free Text) Assessment: 66yo M with PMH pancreatic CA, Afib, CAD s/p stent, and DM2 presents to ED from senior care pain to right index finger, low blood pressure and low oxygen. patient currently hemodynamically stable, BP 107/77, HR of 86, afebrile , So2 100% on NC, Lactate of 1.4. Recommend: - Currently hemodynamically stable, lying comfortably in bed - 2 L nasal cannula as needed to maintain SPO2 > 90 % - Monitor H/H as Hb of 7.1 on anticoagulation? and recommend transfuse PRBCs as needed - Consulted Pulm and IR for large R leural effusions - Consulted Heme for anemia - CXR reviewed - Pain control Patient currently hemodynamically stable and saturating well therefore does not require ICU admission at this time. Please reconsult as needed. Thank you. Case and plan was reviewed and discussed in detail with Dr Seals. <Bozena RAMIREZ,Mirza - Last Filed: 12/10/17 13:25> Results - Vital Signs Recent Vital Signs: Last Vital Signs Temp 97.6 F 12/10/17 12:00 Pulse 104 H 12/10/17 12:00 Resp 20 12/10/17 12:00 BP 115/72 12/10/17 12:00 Pulse Ox 99 12/10/17 06:00 - Labs Result Diagrams: 12/09/17 18:24 12/09/17 18:24 Labs: Laboratory Results - last 24 hr 12/09/17 23:30 Urine Color Yellow Urine Appearance Sl cloudy Urine pH 6.0 Ur Specific [place] 1.020 Urine Protein Trace H Urine Glucose (UA) Negative Urine Ketones Negative Urine Blood Large H Urine Nitrate Negative Urine Bilirubin Negative Urine Urobilinogen 0.2 Ur Leukocyte Esterase Moderate H Urine RBC 10 - 15 Urine WBC 10 - 15 Ur Epithelial Cells 0 - 2 Urine Bacteria Rare Attending/Attestation - Attestation I have personally seen and examined this patient.: Yes I have fully participated in the care of the patient.: Yes I have reviewed all pertinent clinical information: Yes Notes (Text): -I agree with the above ICU consult note completed by the resident physician with the following additions and/or changes: The patient is a 56 year old senior care resident with a history of pancreatic cancer, A-fib, CAD (s/p stent), and NIDDM, who was sent from the nursing due to low blood pressures and intractable right index finger pain. In the ED, the patient is found to have a pleural effusion and anemia. However, because the patient is hemodynamically stable and satting 100% on O2 via NC, he doesn't require ICU level of care at this time. Will sign off now. Please feel free to re-consult if his condition deteriorates. Thank you. -Critical Care Time Spent: 30-40 minutes
[2017-12-10 00:05] LABS: URINE APPEARANCE SL CLOUDY (CLEAR); URINE BILIRUBIN NEGATIVE (NEGATIVE); URINE BLOOD LARGE (NEGATIVE); URINE COLOR YELLOW (YELLOW); URINE GLUCOSE (UA) NEGATIVE (NEGATIVE); URINE LEUKOCYTE ESTERASE MODERATE Leu/uL (NEGATIVE); URINE PROTEIN TRACE mg/dL (<30 mg/dL); URINE UROBILINOGEN 0.2 E.U./dL (<1 E.U./dL)
[2017-12-10 00:08] LABS: URINE BACTERIA RARE (NEG); URINE EPITHELIAL CELLS 0 - 2 /hpf (0-5)
--- NOTE | 2017-12-10 03:09 | CP.PCM.PN ---
Subjective - Date & Time of Evaluation Date of Evaluation: 12/10/17 Time of Evaluation: 03:03 - Subjective Subjective: S:Patient was seen at bedside. Initially he had refused to have blood transfusion. Now , he has agreed and willing to sign consent for blood transfusion. He requested a sleeping pill. Has no other acute complaints. Medical record was reviewed. O: Last Vital Signs 3 Temp 97.4 F L 12/10/17 02:08 Pulse 100 H 12/10/17 02:08 Resp 20 12/10/17 02:08 BP 110/63 12/10/17 02:08 Pulse Ox 100 12/09/17 21:11 Awake, alert, not in distress. LUNGS:Normal breathing pattern. NEURO:Speech normal. A:Adjustment insomnia. Voluntary consent for blood transfusion. P:Ambien 10 mg PO x 1. He signed consent form in presence of nurse Sergey after I explained to him about blood transfusion in detail. a Objective - Vital Signs/Intake and Output Vital Signs (last 24 hours): Temp Pulse Resp BP Pulse Ox 97.4 F L 100 H 20 110/63 100 12/10/17 02:08 12/10/17 02:08 12/10/17 02:08 12/10/17 02:08 12/09/17 21:11 Intake and Output: 12/09/17 12/10/17 18:59 06:59 Intake Total 0 Balance 0 - Labs Labs: PT 16.9 SECONDS (9.4-12.5) H 12/09/17 18:24 INR 1.47 (0.93-1.08) H 12/09/17 18:24 APTT 44.5 Seconds (25.1-36.5) H 12/09/17 18:24
--- NOTE | 2017-12-10 14:08 | CARD ---
APPROVED REPORT EKG Measurement Heart [id number] <Conclusion> Poor data quality, interpretation may be adversely affected Atrial fibrillation with premature ventricular or aberrantly conducted complexes Low voltage QRS Inferior infarct, age undetermined Abnormal ECG
--- NOTE | 2017-12-10 17:19 | US ---
PROCEDURE: Ultrasound guided right thoracentesis. CLINICAL HISTORY: Metastatic pancreatic CA. Enlarging right pleural effusion. Shortness of breath. Needs thoracentesis. PHYSICIAN(S): Terrence Dorantes MD. TECHNIQUE: The relative risks and indications of the procedure were explained to the patient and consent obtained. The patient was placed in a sitting position on the stretcher and sonography of the right chest performed. This revealed a moderate to large complex multiloculated rightpleural effusion. A right posterolateral intercostal approach was selected and the area prepped and draped usual sterile fashion. 1% Xylocaine was used to anesthetize the skin and soft tissues. A 7 German thoracentesis catheter was trocared into the right pleural cavity and 1000 ccof bloody non clotting fluid aspirated. A cytology specimen was sent. IMPRESSION: 1. Ultrasound guided right thoracentesis. 1000 cc of bloody, non clotting fluid was aspirated. A cytology specimen was sent.
[2017-12-10] MEDS ORDERED: Pantoprazole 40 mg EC Tab PO PRN (18:43)
[2017-12-10] MEDS ORDERED: Ergocalciferol 50,000 Intl Units Cap PO SCH (18:45)
[2017-12-10] MEDS: Acetylcysteine 20% Inhal Soln (4ml) INH SCH (19:52)
[2017-12-10] MEDS: Ipratropium 0.02% Inhal Soln (0.5 mg/2.5 ml) UD IH SCH (19:52)
[2017-12-10] MEDS: Budesonide 0.5 mg/2 ml Inhal Susp UD IH SCH (19:52)
[2017-12-10] MEDS: Insulin Reg-LOW-Coverage SC SCH (22:55)
[2017-12-11] MEDS: Acetylcysteine 20% Inhal Soln (4ml) INH SCH ×3 (03:49→20:08)
[2017-12-11] MEDS: Budesonide 0.5 mg/2 ml Inhal Susp UD IH SCH ×3 (03:49→20:09)
[2017-12-11] MEDS: Levothyroxine 25 MCG TAB PO SCH (05:44)
--- NOTE | 2017-12-11 06:18 | CON ---
DATE: 12/10/2017 PULMONARY CONSULTATION REFERRING PHYSICIAN: Joy Nix MD. REASON FOR CONSULTATION: Pleural effusion, has a history of metastatic pancreatic cancer. HISTORY OF PRESENT ILLNESS: This is a 66-year-old gentleman with pancreatic cancer, history of gastric outlet obstruction requiring gastrojejunostomy, has a ductal stent placement. Other issues are cardiomyopathy, coronary artery disease, history of coronary stent, atrial fibrillation, diabetes, brought in from senior care with shortness of breath, mild abdominal discomfort. Awake, alert, follows simple command. No hemoptysis. No hematemesis. No hematuria. No diarrhea reported. PAST MEDICAL HISTORY: Pancreatic cancer with metastatic disease, atrial fibrillation, coronary artery disease with coronary stent, diabetes, pleural effusion. ALLERGIES: ADHESIVE TAPES. SOCIAL HISTORY: Former smoker. Denies any alcohol use at present. History of marijuana use. MEDICATIONS: At home, he is on Flomax, sodium bicarbonate, Protonix, levothyroxine, Atrovent inhaler, Lasix 40 mg daily, digoxin 0.25 mg daily, budesonide inhaler every 8 hours, aspirin 81 mg daily, Eliquis 2.5 mg twice a day, Tylenol p.r.n. REVIEW OF SYSTEMS: No headache, no rhinitis. Has mild short of breath. No cough. Mild abdominal pain. No dysuria. No leg pain or leg swelling. PHYSICAL EXAMINATION: GENERAL: In no acute distress. VITAL SIGNS: Temperature is 98, heart rate is 104, respiratory rate is 20, blood pressure 115/72, pulse ox is 99% on nasal cannula. HEENT: Moist mucous membrane. Crowded airway. Mallampati score . NECK: Supple. JVD. LUNGS: Have decreased breath sounds at the bases. HEART: S1 and S2. ABDOMEN: Positive bowel sounds. Mild tenderness. Distended. EXTREMITIES: There is no edema. NEUROLOGIC: Awake, alert, and follows simple commands. LABORATORY DATA: Shows hemoglobin 7.2, hematocrit 20.8, WBC of 12.2, platelet is 280. INR 1.47, PTT 45. VBG show pH 7.34, pCO2 of 41, pO2 of 50. Sodium 138, potassium 4.1, chloride 106, bicarbonate 21, BUN 66, creatinine 2.3, calcium 6.9. Total bilirubin 1.6, AST 16, ALT 23. LDH is 349. Troponin less than 0.01. Albumin is 2.2. Microbiology, blood culture has been negative. Had a chest x-ray done in ER showing large right pleural effusion, increased since the last study, has an ultrasound-guided thoracentesis with drainage of about 1 liter of serosanguineous fluid. IMPRESSION AND PLAN: Metastatic pancreatic cancer with malignant effusion, coronary artery disease, history of coronary stent, atrial fibrillation, diabetes, there may be a component of chronic lung disease, anemia, status post thoracentesis. We will restart his inhaled bronchodilator. Keep head at 45 degrees. Pain management. Gastric prophylaxis. Follow up labs in the morning. Thank you and we will follow with you. Bryan Mukherjee MD
[2017-12-11 06:35] LABS: HEMOGLOBIN 8.9 g/dL (14.0-18.0); MEAN CELL VOLUME 85.4 fl (80.0-105.0); MEAN CORPUSCULAR HEMOGLOBIN 29.5 pg (25.0-35.0); MEAN CORPUSCULAR HGB CONC 34.5 g/dl (31.0-37.0); MEAN PLATELET VOLUME 8.9 fl (7.0-11.0); RBC 3.02 10^6/uL (3.5-6.1); RED CELL DISTRIBUTION WIDTH 15.8 % (11.5-14.5); WHITE BLOOD COUNT 11.5 10^3/ul (4.5-11.0)
[2017-12-11 06:48] LABS: IRON 21 ug/dL (45-180)
[2017-12-11 06:56] LABS: ALB/GLOB RATIO 0.6 (1.1-1.8); ALBUMIN 2.2 g/dL (3.0-4.8); CALCIUM 6.9 mg/dL (8.4-10.5)
[2017-12-11 06:57] LABS: % IRON SATURATION 14 % (20-55); TOTAL IRON BINDING CAPACITY 148 ug/dL (261-462)
[2017-12-11] MEDS: Ipratropium 0.02% Inhal Soln (0.5 mg/2.5 ml) UD IH SCH ×3 (07:50→20:08)
[2017-12-11] MEDS: Insulin Reg-LOW-Coverage SC SCH ×4 (09:19→21:23)
--- NOTE | 2017-12-11 10:17 | HP ---
CHIEF COMPLAINT: Low blood pressure, low oxygen, feeling fatigued and tired. HISTORY OF PRESENT ILLNESS: Mr. Franky Campuzano is a 66-year-old male with history of pancreatic cancer with metastasis, was getting rehab at [facility], has history of discoloration and pain to the right hand fingers as well as low blood pressure and low oxygen level as per long-term. The patient denies chest pain, shortness of breath, denies abdominal pain. The patient states that he has intermittent discoloration of his fingers on and off since 04/2017. Denies trauma. Denies bleeding or drainage. No fever. No chills. No hematuria or hematochezia. PAST MEDICAL HISTORY: As above. History of lung nodule, smoker, history of marijuana abuse, history of kidney stones, diabetes mellitus type 2, pancreatic cancer with metastasis, esophageal ulcers, esophageal polyp, duodenal gastric outlet obstruction, Gilbert's esophagus, GI bleeding, constipation, nausea, coronary artery disease, stent in gallbladder, stomach bypass surgery. FAMILY HISTORY: Father and mother, noncontributory. HABITS: Former smoker. Alcohol, occasionally drinks. Substance abuse, marijuana. Last smoke was in 2014. ALLERGIES: THE PATIENT IS ALLERGIC WITH TAPE. HOME MEDICATIONS: Protonix and pain medications. REVIEW OF SYSTEMS: The patient was seen and examined on the bedside in his room, feeling fatigued and tired. No fever. No chills. No vision changes. No hearing changes. Complaining about cough, shortness of breath. No chest pain or palpitation. No edema. No calf tenderness. No appetite change. No abdominal pain. No nausea or vomiting. No dysuria, no back pain. Having discoloration of the right-hand digits. No dizziness or focal weakness. No polyuria. Easy bleeding, history of depression. PHYSICAL EXAMINATION VITAL SIGNS: Temperature 98.4, pulse 87, blood pressure 100/64, respiratory rate 20. HEENT: Head normocephalic, atraumatic. Eyes PERRLA. Extraocular muscles intact. Conjunctivae clear. Nose patent. NECK: Supple. No carotid bruit. No JVD or thyromegaly. CHEST: Bilaterally symmetrical. HEART: S1 and S2 positive. LUNGS: Clear to auscultation. ABDOMEN: Soft. Bowel sounds present. No organomegaly. EXTREMITIES: No edema. No cyanosis. NEUROLOGICAL: The patient is awake and alert. Moving all four extremities. No focal deficits. LABORATORY DATA: White blood cell count is 9.2, hemoglobin 7.2, hematocrit 20.8, platelets 280. Sodium 138, potassium 4.1, BUN 66, creatinine 2.3, calcium is 6.9. ASSESSMENT AND PLAN: Mr. Franky Campuzano is a 66-year-old male with leukocytosis, anemia, renal insufficiency, hypocalcemia, abnormal liver function tests, proteinuria, hematuria, urinary tract infection, history of pancreatic cancer with metastasis, thoracentesis done ultrasound guided, by Dr. Terrence Dorantes of the right side. One liter of bloody, non-clotting, fluid was aspirated. Cytology specimen sent out. Seen by Dr. Reddy. Blood transfusion was given. We will monitor his hemoglobin and hematocrit. Gastrointestinal and deep venous thrombosis prophylaxis. Seen by Dr. Mukherjee, Dr. Terrence Dorantes and Dr. Rey, the patient's oncologist. We will follow up. Joy Nix MD MTDAnderson
--- NOTE | 2017-12-11 22:41 | PN ---
DATE: 12/11/2017 PULMONARY PROGRESS NOTE REFERRING PHYSICIAN: Joy Nix MD. SUBJECTIVE: He is out of bed to chair, having dinner, feels a little better. No headache, no rhinitis. No nausea. Mild abdominal discomfort. No leg pain or leg swelling. PHYSICAL EXAMINATION: GENERAL: In no acute distress. VITAL SIGNS: Temperature is 98, heart rate is 107, respiratory rate is 18, blood pressure 117/77, pulse ox 95% on 2 liters nasal cannula. HEENT: Moist mucous membranes. Crowded airway. NECK: Supple. No JVD. LUNGS: Have decreased breath sounds in the right base. HEART: S1 and S2. ABDOMEN: Soft, mildly distended. EXTREMITIES: Not much edema. NEUROLOGIC: Awake, alert, and follows simple command. MEDICATIONS: He is on Mucomyst inhaled three times a day, Atrovent inhaled three times a day, vitamin D 50,000 units every 7 days, Ecotrin 81 mg daily, Eliquis 2.5 mg twice a day, tamsulosin 0.4 mg daily, insulin coverage, Keflex 500 mg twice a day, digoxin 0.25 mg every 48 hours, Lasix 40 mg daily, Protonix 40 mg daily, Pulmicort inhaled three times a day, bicarbonate three times a day, Synthroid 25 mcg daily, and Tylenol p.r.n. basis. LABORATORY DATA: Shows hemoglobin 8.9, hematocrit 25.8, WBC 11.5, platelet is 266. Sodium 140, potassium 4, chloride 107, bicarbonate 23, BUN is 65, creatinine 2.2, glucose 147, calcium is 6.9. Iron is 21. Total bilirubin 1.5, AST 20, ALT 18, alkaline phosphatase is 87, albumin is 2.2. TSH 17.9. Microbiology: Blood culture and urine culture, there is no growth. IMPRESSION AND PLAN: Metastatic pancreatic cancer with malignant effusion, coronary artery disease, coronary artery stent, atrial fibrillation, diabetes, renal insufficiency, chronic lung disease, anemia, status post thoracentesis. Pulmonary point of view, doing okay. Continue bronchodilator. Keep head at 45 degrees. Aspiration precaution. Follow renal function closely. Avoid nephrotoxic drugs. Fall precaution. Follow up labs in the morning. Thank you and we will follow with you. Bryan Mukherjee MD
--- NOTE | 2017-12-12 01:20 | CON ---
DATE: 12/11/2017 REASON FOR CONSULT: Metastatic pancreatic cancer. HISTORY OF PRESENT ILLNESS: The patient is a 66-year-old male well known to me with history of metastatic pancreatic cancer who has been on Gemzar and Abraxane for several years, but recently had developed jaundice at which point he was admitted to the hospital for stent change and subsequently, the patient has been having multiple admissions secondary to multiple complications between rehab and currently admitted with a new pleural effusion, status post thoracentesis. Now feels much better. Last admission was for also anemia and now he is once again noted to be anemic. He denies any fevers, night sweats. No chills. No hematuria, no hematochezia. No change in bowel habits. No other complaints. PAST MEDICAL HISTORY: Significant for diabetes type 2, pancreatic cancer with metastatic disease, esophageal ulcer, esophageal polyps, duodenal gastric outlet obstruction, Gilbert esophagitis, GI bleeding in the past, stents, and also known severe cardiomyopathy. HOME MEDICATIONS: Reviewed. FAMILY HISTORY: Noncontributory. SOCIAL HISTORY: Positive for smoking in the past. Drinks alcohol occasionally. Denies any substance abuse at this point. REVIEW OF SYSTEMS: As per the HPI. PHYSICAL EXAMINATION: GENERAL: The patient is an elderly pleasant male lying in bed, in no acute distress. VITAL SIGNS: Reveal a temperature of 98.7, pulse of 106, respiratory rate of 18, and a blood pressure of 127/76. HEAD AND NECK: Normocephalic, atraumatic. Eyes: Pupils equal, round, and reactive to light and accommodation. Extraocular muscles are intact. There is some pallor. No icterus is noted. NECK: Supple with no adenopathy. No JVD. No thyromegaly. LUNGS: Clear to auscultation bilaterally with some basilar rales. CARDIOVASCULAR: S1 and S2 heard. The patient is tachycardic. ABDOMEN: Positive bowel sounds, soft, nontender, nondistended. No organomegaly is palpated. EXTREMITIES: There is no edema, clubbing, or cyanosis. LABORATORY DATA: Reveal a white count of 11.5, hemoglobin of 8.9 post PRBC transfusion, MCV is 85.4, and a platelet count of 266. Coagulation studies are within normal limits. Chemistries reveal a BUN and creatinine of 65 and 2.2. Calcium is only 6.9. His TSH is elevated at 17. Otherwise, electrolytes are within normal limits. Urine did show moderate leukocyte esterase and blood. He also had a chest x-ray upon admission which revealed right large pleural effusion. His last CT of the chest was done a few weeks ago and there was no pulmonary infiltrate and no pleural effusion at that time. ASSESSMENT AND PLAN: Elderly male with known metastatic pancreatic cancer, now with multiple admissions with complications and new pleural effusion, question if this is secondary to metastatic disease or possibly from his known cardiomyopathy. He has undergone a thoracentesis and cytology is still pending at this point. He remains anemic, would transfuse one more unit of packed red blood cells at this point. Overall, prognosis is poor. Have had multiple discussions with the patient as well as family, especially because his performance status has declined over the last two months, with multiple admissions and rehab placement. Encourage p.o. intake as well as physical therapy. We will reevaluate once the patient is discharged from the hospital. Thank you for the consult. We will follow. Dalia Rey MD
[2017-12-12] MEDS: Acetylcysteine 20% Inhal Soln (4ml) INH SCH ×3 (03:30→21:06)
[2017-12-12] MEDS: Levothyroxine 25 MCG TAB PO SCH (05:25)
[2017-12-12 07:22] LABS: HEMOGLOBIN 8.6 g/dL (14.0-18.0); MEAN CELL VOLUME 86.2 fl (80.0-105.0); MEAN CORPUSCULAR HEMOGLOBIN 29.7 pg (25.0-35.0); MEAN CORPUSCULAR HGB CONC 34.4 g/dl (31.0-37.0); MEAN PLATELET VOLUME 8.6 fl (7.0-11.0); RBC 2.9 10^6/uL (3.5-6.1); RED CELL DISTRIBUTION WIDTH 15.5 % (11.5-14.5); WHITE BLOOD COUNT 13.1 10^3/ul (4.5-11.0)
[2017-12-12] MEDS: Ipratropium 0.02% Inhal Soln (0.5 mg/2.5 ml) UD IH SCH ×3 (07:38→21:06)
[2017-12-12 07:43] LABS: ALB/GLOB RATIO 0.5 (1.1-1.8); ALBUMIN 2.1 g/dL (3.0-4.8); CALCIUM 6.9 mg/dL (8.4-10.5)
[2017-12-12] MEDS: Insulin Reg-LOW-Coverage SC SCH ×4 (07:55→21:33)
--- NOTE | 2017-12-12 08:38 | PN ---
DATE: 12/11/2017 SUBJECTIVE: Patient is seen and examined at bedside, looking comfortable, actually sitting on the chair, having dinner. Shortness of breath is better. No fever, no chills. No nausea, vomiting or diarrhea. No headache, no chest pain, no palpitation. PHYSICAL EXAMINATION: VITAL SIGNS: Temperature 97.9, pulse of 107, blood pressure 117/77, respiratory rate 18. HEENT: Head is normocephalic and atraumatic. Eyes, PERRLA. Extraocular muscles intact. Conjunctivae clear. Nose patent. Mucous membranes moist. NECK: Supple. No carotid bruits. No JVD or thyromegaly. CHEST: Bilaterally symmetrical. HEART: S1 and S2 positive. LUNGS: Clear to auscultation. ABDOMEN: Soft. Bowel sounds present. No organomegaly. EXTREMITIES: No edema. No cyanosis. NEUROLOGIC: Patient is awake and alert. Moving all four extremities. No focal deficit. MEDICATIONS: Atrovent, vitamin D, Ecotrin, Eliquis, Flomax, insulin, Keflex, Lanoxin, Lasix, Os-Yifan, Protonix, Pulmicort, NS, Synthroid, Tylenol. LABORATORY DATA: White blood cell is 11.5, hemoglobin 8.9, hematocrit 25.8, platelets 266. Sodium 140, potassium 4, BUN 65, creatinine 2.2, glucose 79, calcium 6.9, iron 21. ASSESSMENT AND PLAN: a 66-year-old male with leukocytosis; anemia; renal insufficiency; hypocalcemia; hypothyroidism; history of pancreatic cancer with metastasis with malignant effusion, status post thoracentesis by the interventional radiologist; coronary artery disease; history of coronary artery stents; atrial fibrillation; diabetes mellitus; chronic lung disease; anemia, status post blood transfusion. He is getting inhaled bronchodilators. Gastric prophylaxis. Deep venous thrombosis prophylaxis. We will continue present treatment. Out of bed. Physical therapy. Joy Nix MD MTDD
[2017-12-12] MEDS: Budesonide 0.5 mg/2 ml Inhal Susp UD IH SCH ×2 (13:43→21:06)
--- NOTE | 2017-12-12 14:04 | PN ---
DATE: 12/12/2017 PULMONARY PROGRESS NOTE REFERRING PHYSICIAN: Dr. oJy Nix. SUBJECTIVE: The patient is lying in the bed, head at 45 degrees. Wants to be left alone. No headache. No rhinitis. Not much cough, short of breath with exertion. Mild abdominal discomfort. No nausea. No vomiting. Poor appetite. Has a trace leg swelling. OBJECTIVE: GENERAL: In no acute distress. VITAL SIGNS: Temperature is 98, heart rate is 104, respiratory rate is 18, blood pressure 130/90, pulse ox 99% on room air. HEENT: Moist mucous membrane. Crowded airway. NECK: Supple. No JVD. LUNGS: Have decreased breath sounds at the bases. A few rhonchi. HEART: S1, S2. ABDOMEN: Ascites, distended, mild tenderness. EXTREMITIES: Mild edema. NEUROLOGIC: Awake, alert, follows simple commands. MEDICATIONS: Mucomyst inhaled 3 times a day, Atrovent inhaled 3 times a day, vitamin D 50,000 units weekly, Ecotrin 81 mg daily, Eliquis 2.5 mg twice a day, Flomax 0.4 mg daily, insulin coverage, Dulcolax 500 mg twice a day, digoxin 0.25 mg every 48 hours, Lasix 40 mg daily, calcium carbonate 1000 mg 3 times a day, Protonix 40 mg daily, Pulmicort inhaled twice a day, sodium bicarbonate 3 times a day, Synthroid 25 mcg daily, Tylenol on p.r.n. basis. LABORATORY DATA: Shows hemoglobin 8.6, hematocrit 25, WBC 13.1, platelet count is 261. Sodium 141, potassium 3.9, chloride 107, bicarbonate 23, BUN 62, creatinine 2, glucose 168, calcium 6.9, AST 18, ALT 20, alkaline phosphatase is 83. Albumin is 2.1. Microbiology, blood culture, urine culture, there is no growth. IMPRESSION AND PLAN: Metastatic pancreatic cancer, pleural effusion, coronary artery disease, coronary stent, atrial fibrillation, diabetes, renal insufficiency, chronic lung disease, anemia. From pulmonary point of view, doing okay. Overall poor prognosis. Continue bronchodilator, keep head at 45 degrees, continue diuretics. Follow kidney function closely, aspiration precaution, encourage p.o. diet. Also, malnourishment with low albumin. We will follow with you. Bryan Mukherjee MD
[2017-12-12] MEDS: Digoxin 250 mcg (0.25 mg) Tab PO SCH (14:43)
[2017-12-13] MEDS: Budesonide 0.5 mg/2 ml Inhal Susp UD IH SCH ×3 (03:30→20:19)
[2017-12-13] MEDS: Levothyroxine 25 MCG TAB PO SCH (05:28)
[2017-12-13] MEDS: Ipratropium 0.02% Inhal Soln (0.5 mg/2.5 ml) UD IH SCH ×3 (07:32→20:18)
[2017-12-13] MEDS: Insulin Reg-LOW-Coverage SC SCH ×4 (07:38→22:15)
--- NOTE | 2017-12-13 08:05 | PN ---
DATE: 12/12/2017 SUBJECTIVE: Patient is seen and examined at bedside late evening, looking comfortable, want bedside commode. No fever, no chills. No nausea, vomiting, or diarrhea. No hematuria or hematochezia. No swelling of the legs. No chest pain or palpitation. PHYSICAL EXAMINATION: VITAL SIGNS: Temperature 98, heart rate 102, respiratory rate 20, blood pressure 120/80, pulse oximetry 99% on room air. HEENT: Head is normocephalic and atraumatic. Eyes, PERRLA. Extraocular muscles are intact. Conjunctivae are clear. Nose is patent. Mucous membranes are moist. NECK: Supple. No carotid bruits. No JVD or thyromegaly. CHEST: Decreased breath sounds at the bases. Scattered few rhonchi. HEART: S1 and S2 positive. ABDOMEN: Soft, ascites, distended, mild tenderness. EXTREMITIES: Mild edema. NEUROLOGIC: Patient is awake and alert. Follows simple commands. MEDICATIONS: Mucomyst inhaled 3 times a day, Atrovent, vitamin D, Ecotrin, Eliquis, Flomax, insulin, Dulcolax, digoxin, Lasix, calcium carbonate, Protonix, Pulmicort, sodium bicarbonate, Synthroid, Tylenol. LABORATORY DATA: Hemoglobin 8.6, hematocrit 25, white blood cells 13.1, platelets 261. Sodium 141, potassium 3.9, BUN 62, creatinine 2. AST 18, ALT 20. ASSESSMENT AND PLAN: The patient with metastatic pancreatic cancer, pleural effusion, status post thoracentesis by Dr. Terrence Dorantes; coronary artery disease; coronary artery stent; atrial fibrillation; diabetes mellitus; renal insufficiency; chronic obstructive pulmonary disease; anemia. Patient's overall prognosis is poor. Continue bronchodilators. Patient lives alone at home, does not have any support. Continue diuretics. Aspiration precaution. Encouraged p.o. diet. Gastrointestinal and deep venous thrombosis prophylaxis. Repeat labs. Joy Nix MD
--- NOTE | 2017-12-13 13:03 | PN ---
DATE: 12/13/2017 PULMONARY PROGRESS NOTE REFERRING PHYSICIAN: Joy Nix MD SUBJECTIVE: The patient is sitting at the side of the bed, having lunch. Night was unremarkable. No headache, no rhinitis. No cough or short of breath with exertion. No nausea, no vomiting, no diarrhea. Trace leg swelling. OBJECTIVE: GENERAL: In no acute distress. VITAL SIGNS: Temperature is 98, heart rate is 90, respiratory rate is 20, blood pressure 108/74, pulse ox 99% on nasal cannula. HEENT: Moist mucous membranes. Crowded airway. NECK: Supple. No JVD. LUNGS: Have decreased breath sounds on the bases. HEART: S1 and S2. ABDOMEN: Soft, distended. Mild tenderness and ascites. EXTREMITIES: Trace edema. NEUROLOGICAL: Awake and alert. Follows simple command. MEDICATIONS: He is on Mucomyst inhaled three times a day, Atrovent inhaled three times a day, vitamin D 50,000 units weekly, Ecotrin 81 mg daily, Eliquis 2.5 mg twice a day, Flomax 0.4 mg daily, insulin coverage, digoxin 0.25 mg every 48 hours, Lasix 40 mg daily, gabapentin 100 mg daily, calcium carbonate three times a day, Protonix 40 mg , Pulmicort inhaled three times a day, sodium bicarbonate three times a day, Synthroid 25 mcg daily, Tylenol p.r.n. basis. LABORATORY DATA: Shows hemoglobin 8.6, hematocrit 25. Blood sugar this morning 136. Microbiology: Blood culture and urine culture, there is no growth. IMPRESSION AND PLAN: Metastatic pancreatic cancer, pleural effusion, coronary artery disease, coronary stent, atrial fibrillation, diabetes, renal failure, chronic lung disease, anemia. Pulmonary point of view, doing okay. Continue bronchodilator. Keep head at 45 degrees. Aspiration precaution. Seen by Oncology. Continue supportive care. Gastric prophylaxis. Thank you and we will follow with you. Bryan Mukherjee MD
[2017-12-13] MEDS: Acetylcysteine 20% Inhal Soln (4ml) INH SCH ×2 (13:35→20:18)
--- NOTE | 2017-12-14 01:52 | PN ---
DATE: 12/13/2017 SUBJECTIVE: Patient is a 66-year-old male. Patient is seen and examined at the bedside, looking comfortable. No nausea, vomiting, or diarrhea. No headache. No dizziness. No chest pain. No palpitation. Trace leg swelling. PHYSICAL EXAMINATION: VITAL SIGNS: Temperature 98, heart rate 90, respiratory rate 20, blood pressure 108/74, pulse oximetry 99% on nasal cannula. HEENT: Head is normocephalic and atraumatic. Eyes, PERRLA. Extraocular muscles are intact. Conjunctivae are clear. Nose is patent. Mucous membranes moist. NECK: Supple. No carotid bruit, JVD, or thyromegaly. CHEST: Bilaterally symmetrical. HEART: S1 and S2 positive. LUNGS: Clear to auscultation. ABDOMEN: Soft. Bowel sounds present. No organomegaly. EXTREMITIES: No edema. No cyanosis. NEUROLOGIC: Patient is awake, alert. Moving all four extremities. No focal deficit. MEDICATIONS: Mucomyst, Atrovent, Ecotrin, Eliquis, Flomax, insulin coverage, gabapentin, Pulmicort, sodium bicarbonate. LABORATORY DATA: Hemoglobin 8.6, hematocrit 25. Blood sugar 136. ASSESSMENT: Mr. Franky Campuzano is a 66-year-old male with metastatic pancreatic cancer, pleural effusion, coronary artery disease, coronary stent, atrial fibrillation, diabetes mellitus, renal failure, chronic lung disease, anemia. PLAN: Continue bronchodilators. Aspiration precautions. Oncologist is on the case. Supportive care. Gastric prophylaxis. Overall, prognosis is poor. Patient is aware of that. Repeat labs. We will follow up. Joy Nix MD
[2017-12-14 04:43] VITALS: RESP 19
[2017-12-14] MEDS: Levothyroxine 25 MCG TAB PO SCH (05:54)
[2017-12-14] MEDS: Insulin Reg-LOW-Coverage SC SCH ×3 (07:48→16:33)
[2017-12-14] MEDS: Acetylcysteine 20% Inhal Soln (4ml) INH SCH ×2 (07:58→14:37)
[2017-12-14] MEDS: Ipratropium 0.02% Inhal Soln (0.5 mg/2.5 ml) UD IH SCH ×2 (07:59→14:38)
[2017-12-14] MEDS: Budesonide 0.5 mg/2 ml Inhal Susp UD IH SCH ×2 (07:59→14:38)
[2017-12-14 09:25] LABS: HEMOGLOBIN 9.1 g/dL (14.0-18.0); MEAN CELL VOLUME 88.6 fl (80.0-105.0); MEAN CORPUSCULAR HEMOGLOBIN 29.5 pg (25.0-35.0); MEAN CORPUSCULAR HGB CONC 33.3 g/dl (31.0-37.0); MEAN PLATELET VOLUME 9.2 fl (7.0-11.0); RBC 3.08 10^6/uL (3.5-6.1); RED CELL DISTRIBUTION WIDTH 15.4 % (11.5-14.5); WHITE BLOOD COUNT 12.2 10^3/ul (4.5-11.0)
[2017-12-14 09:39] LABS: ALB/GLOB RATIO 0.6 (1.1-1.8); ALBUMIN 2.4 g/dL (3.0-4.8); CALCIUM 7.4 mg/dL (8.4-10.5)
[2017-12-14 12:30] VITALS: O2SAT 93
[2017-12-14] MEDS: Digoxin 250 mcg (0.25 mg) Tab PO SCH (14:10)
[2017-12-14 14:12] VITALS: PULSE 111
[2017-12-14 14:18] VITALS: BP 94/59; PULSE 98; TEMP 97.9
[2017-12-14] MEDS ORDERED: Albumin Human 25% (12.5 gm/50 ml) IV SCH (18:00)
--- NOTE | 2017-12-14 18:13 | PN ---
DATE: 12/14/2017 PULMONARY PROGRESS NOTE REFERRING PHYSICIAN: Joy Nix MD SUBJECTIVE: The patient is sitting up in a chair. Night was unremarkable. Had anasarca, upper and lower extremity swelling, has ascites. No cough. No sputum production. Usually sleepy and tired. No nausea. No vomiting or diarrhea reported. OBJECTIVE: GENERAL: In no acute distress. VITAL SIGNS: Temperature is 98, heart rate is 98, respiratory rate is 20, blood pressure 94/59, pulse ox 93% on nasal cannula. HEENT: Moist mucous membranes. No ulcer or thrush. NECK: Supple. No JVD. LUNGS: Decreased breath sounds at bases with crackles. HEART: S1 and S2. ABDOMEN: Ascites, distended. EXTREMITIES: Does have edema of the upper and lower extremity. NEUROLOGIC: Sleepy, arousable. Follows simple command. MEDICATIONS: He is on Mucomyst inhaled three times a day, Atrovent inhaled three times a day, vitamin D 50,000 units every 7 days, Ecotrin 81 mg daily, Eliquis 2.5 mg twice a day, Flomax 0.4 mg daily, insulin coverage, digoxin 0.25 mg every 48, Lasix 40 mg daily, gabapentin 100 mg daily, calcium carbonate 1000 mg three times a day, Protonix 40 mg daily, Pulmicort inhaled three times a day, bicarbonate twice a day, Synthroid 25 mcg daily, Tylenol p.r.n. basis. LABORATORY DATA: Shows hemoglobin 9.1, hematocrit 27.3, WBC 12.2, and platelets 312. Sodium 140, potassium 4.1, chloride 105, bicarbonate 24. BUN 59, creatinine 1.8. Glucose 168. Calcium 7.4. AST 32, ALT 22, alk phos is 111. Albumin is 2.4. Microbiology: Blood culture and urine culture, there is no growth. IMPRESSION AND PLAN: Metastatic pancreatic cancer, pleural effusion, coronary artery disease, coronary stent, atrial fibrillation, diabetes, renal failure, chronic lung disease, anemia, hypoalbuminemia, anasarca. We will continue bronchodilator. Keep head at 45 degrees. Gastric prophylaxis, DVT prophylaxis. We will try to give him IV albumin with Lasix to mobilize some of the fluid. Thank you and we will follow with you. Bryan Mukherjee MD [facility] # [id number]
== END 2017-12-14 17:39 | DRG 181 ==
LOC: ED 16:28 → ERH 20:18 → 2RNO 21:35
PROVIDERS: ADMIT Internal Medicine; ATTEND Internal Medicine
PROC: 30233N1 Transfusion of Nonautologous Red Blood Cells into Peripheral Vein, Percutaneous Approach (ICD-10-PCS; 2017-12-10)
PROC: 0W993ZX Drainage of Right Pleural Cavity, Percutaneous Approach, Diagnostic (ICD-10-PCS; principal; 2017-12-10 17:00)
DX: J91.0 Malignant pleural effusion (principal); C25.9 Malignant neoplasm of pancreas, unspecified; N39.0 Urinary tract infection, site not specified; R18.8 Other ascites; I42.9 Cardiomyopathy, unspecified; D64.9 Anemia, unspecified; K22.70 Barrett's esophagus without dysplasia; I25.10 Atherosclerotic heart disease of native coronary artery without angina pectoris; K59.00 Constipation, unspecified; F12.10 Cannabis abuse, uncomplicated; E83.51 Hypocalcemia; E11.22 Type 2 diabetes mellitus with diabetic chronic kidney disease; N18.9 Chronic kidney disease, unspecified; R31.9 Hematuria, unspecified; F51.02 Adjustment insomnia; I48.91 Unspecified atrial fibrillation; E03.9 Hypothyroidism, unspecified; Z79.84 Long term (current) use of oral hypoglycemic drugs; Z95.5 Presence of coronary angioplasty implant and graft; Z87.891 Personal history of nicotine dependence

== ENCOUNTER 2017-12-24 12:49 | Inpatient (IN) | payer MEDICARE, OTHER ==
[2017-12-24 12:49] VITALS: PULSE 111
--- NOTE | 2017-12-24 13:10 | ED PDOC ---
Arrival/HPI - General Chief Complaint: Weakness/Neurological Deficit Time Seen by Provider: 12/24/17 13:04 Historian: Patient, EMS - History of Present Illness Narrative History of Present Illness (Text): 12/24/17 13:00 pt p/w + diffuse body swelling, unknown duration; pt states he felt overall general fatigue/weakness; pt states he cant walk for weeks now, no trauma/fall; pt states no espitia, no vision changes, fever/chills/sweats, no cp/sob/palpitations , no new abd pain, no n/v, no numbness/tingling, no urinary/bowel changes, + dizziness/lightheadedness; no LOC; pt denied other complaints; pt has not had an appetite; pt arrived to Emergency department for further eval; pt's without other complaints. PCP: Dr Nix pt is a resident of [facility] Time/Duration: Other (unknown timeframe but weakness onset of fatigue/weakness) Symptom Onset: Gradual Symptom Course: Unchanged Activities at Onset: Rest Context: Other ([facility]) Past Medical History - Provider Review Nursing Documentation Reviewed: Yes - Travel History Have you recently traveled outside [place] w/in the past 3 mons?: No - Past History Past History: No Previous - Infectious Disease Hx of Infectious Diseases: None - Tetanus Immunization Tetanus Immunization: Unknown - Cardiac Hx Congestive Heart Failure: Yes - Pulmonary Hx Respiratory Disorders: Yes Hx Pneumonia: Yes - Neurological Hx Neurological Disorder: Yes Hx Dizziness: Yes - HEENT Hx HEENT Disorder: No - Renal Hx Renal Disorder: No - Endocrine/Metabolic Hx Diabetes Mellitus Type 2: Yes - Hematological/Oncological Hx Blood Disorders: Yes Hx Cancer: Yes (pancreatic) - Integumentary Hx Dermatological Disorder: No - Musculoskeletal/Rheumatological Hx Musculoskeletal Disorders: No Hx Falls: No - Gastrointestinal Hx Gastrointestinal Disorders: Yes Hx Gastroesophageal Reflux: Yes - Genitourinary/Gynecological Hx Genitourinary Disorders: No - Psychiatric Hx Psychophysiologic Disorder: No Hx Substance Use: Yes - Past Surgical History Past Surgical History: No Previous - Surgical History Hx Cardiac Catheterization: Yes Hx Coronary Stent: Yes Other/Comment: biliary drain - Anesthesia Hx Anesthesia Reactions: No Hx Malignant Hyperthermia: No - Suicidal Assessment Feels Threatened In Home Enviroment: No Family/Social History - Physician Review Nursing Documentation Reviewed: Yes Family/Social History: No Known Family HX Smoking Status: Former Smoker Hx Alcohol Use: Yes Hx Substance Use: Yes Hx Substance Use Treatment: No Allergies/Home Meds Allergies/Adverse Reactions: Allergies iv tape Allergy (Mild, Uncoded 12/09/17 16:37) RASH Home Medications: Home Meds Medication Instructions Recorded Confirmed Pantoprazole [Protonix EC Tab] 40 mg PO ACB PRN 10/17/17 12/24/17 Budesonide [Pulmicort Respules] 0.5 mg IH Q12 12/24/17 12/24/17 Calcium Carbonate [Oscal] 1,300 mg PO BID 12/24/17 12/24/17 Digoxin [Lanoxin] 0.25 mg PO DAILY 12/24/17 12/24/17 Gabapentin [Neurontin] 100 mg PO DAILY 12/24/17 12/24/17 Sodium Bicarbonate Tab 1,000 mg PO TID 12/24/17 12/24/17 Review of Systems - Review of Systems Constitutional: Fatigue. absent: Weight Change, Fevers Eyes: Normal. absent: Vision Changes ENT: Normal. absent: Hearing Changes Respiratory: Normal. absent: SOB Cardiovascular: Normal. absent: Chest Pain Gastrointestinal: Normal. absent: Abdominal Pain, Nausea, Vomiting Genitourinary Male: Normal Musculoskeletal: Other (diffuse limb swelling) Skin: Normal. absent: Rash Neurological: Normal, Other (generalized weakness). absent: Headache, Dizziness Endocrine: Normal Hemo/Lymphatic: Normal Psychiatric: Normal Physical Exam - Physical Exam Narrative Physical Exam (Text): 12/24/17 16:43 General: alert/awake, GCS = 15, oriented x 3, resting in bed, uncomfortable, cooperative, interactive; NAD Head: NC/AT; mild bi-temporal wasting EYE: PERRLA, EOMI, sclera anicteric, no nystagmus, no photophobia; visual field intact b/l Facial: WNL Oral: uvula/tongue are midline, no exudate/lesions, no drooling/stridor, no dysphonia; intact dentitions; mild dry oral mucosa, poor dentitions NECK: intact ROM, no midline tenderness, no nuchal rigidity, no meningeal signs ; no step off Chest: CTA b/l, no w/r/r; no tachypenia, no accessory muscle use noted; decr basiliar breath sounds Cardiac: +S1, +S2, no m/r/r, + tachycardia Abdominal: +BS, soft/nd/nt, well nourished patient; no masses/rebound/guarding/ rigidity; no franklin's sign, no mcburney's point tenderness Extremities: intact ROM, strength 5/5 grossly intact upper b/l limbs, neurovasc intact b/l; decr ROM and strength of 3/5 b/l lower extremity; diffuse body swelling/pitting edema +3/5 upper/lower extremity; no jasen's sign noted b/l BACK: no step off, no midline tenderness, NO crepitus, no gross deformities noted; Intact ROM SKIN: cap refill ~ 1 sec, no ulcerations, no petechiae, no rashes; + pallor; noted b/l lower ext skin erythema as well as skin erythema noted to b/l distal forearm/hand region (pt states chronic) NEURO: CNII-XII WNL, no facial asymmetries, no slurr speech, oriented x 3 Psych: normal insight, normal affect; follows command with ease Vital Signs Reviewed: Yes Vital Signs Temp Pulse Resp BP Pulse Ox 12/24/17 15:24 114/64 12/24/17 13:55 88 18 114/64 99 12/24/17 12:58 97.4 F L 131 H 22 124/74 99 Temperature: Afebrile Blood Pressure: Normal Pulse: Tachycardic Respiratory Rate: Normal Appearance: Positive for: Non-Toxic, Ill-Appearing, Uncomfortable, Cachectic, Other (alert/awake, resting in bed, cooperative, NAD, follows command with ease , uncomfortable) Pain Distress: None Mental Status: Positive for: Alert and Oriented X 3 - Systems Exam Head: Present: Atraumatic, Normocephalic Medical Decision Making ED Course and Treatment: 12/24/17 13:08 Impression: generalized swelling i have consider all the differential diagnosis regarding pt's chief medical complaints/clinical findings, including but are not limited to: diffuse swelling A/P: generalized swelling - labs - iv - xray - supportive care - observe/reevaluation 1430 pt is resting in bed pt is not in any distress pt is awaiting final disposition 12/24/17 15:46: Case discussed with Dr. Nix who was made aware and agrees with admission. Recommends Manager Of Care (shaq) and Hospice Aide (viki) to be consulted. 1630 pt noted with low FS, will provide dextrose pt remained awake, NOT in any distress pt is made aware of his medical results agrees with admission Re-evaluation Time: 17:25 Reassessment Condition: Unchanged - Critical Care Critical Care Minutes: 30 minutes Critical Care Time: Excluding Proc Time Narrative Critical Care (Text): 12/24/17 17:51 critical care time: 30min, excluding procedure time, excluding time teaching residents/students/mid-level providers; including initial eval/diagnosis, diagnostic interpretation, re-eval, consultations, final disposition - Lab Interpretations Lab Results: 12/24/17 14:11 12/24/17 14:11 Lab Results 12/24/17 14:11: pO2 51, VBG pH 7.33, VBG pCO2 50.0, VBG HCO3 26.4, VBG Total CO2 27.9, VBG O2 Sat (Calc) 91.0 H, VBG Base Excess -0.2 L, VBG Potassium 3.9, Sodium 134.0, Chloride 103.0, Glucose 50 L, Lactate 1.2, FiO2 21.0, Venous Blood Potassium 3.9 12/24/17 14:11: Blood Type A POSITIVE, Antibody Screen Negative, BBK History Checked Patient has bt 12/24/17 14:11: Digoxin 3.9 H* 12/24/17 14:11: PT 20.0 H, INR 1.73 H, APTT 44.6 H 12/24/17 14:11: Sodium 138, Chloride 101, Potassium 4.0, Carbon Dioxide 26, Anion Gap 15, BUN 57 H, Creatinine 2.0 H, Est GFR ( Amer) 41, Est GFR ( Non-Af Amer) 33, Random Glucose 50 L, Calcium 7.3 L, Total Bilirubin 1.1, AST 37 , ALT 22, Alkaline Phosphatase 102, Troponin I 0.04 D, NT-Pro-B Natriuret Pep 58662 H, Total Protein 6.7, Albumin 2.4 L, Globulin 4.2, Albumin/Globulin Ratio 0.6 L, Lipase < 10 L 12/24/17 14:11: WBC 11.5 H, RBC 3.41 L, Hgb 9.8 L, Hct 30.0 L, MCV 88.0, MCH 28.7, MCHC 32.7, RDW 15.3 H, Plt Count 310, MPV 9.2, Gran % 79.4 H, Lymph % ( Auto) 5.9 L, Gregory % (Auto) 14.1 H, Eos % (Auto) 0.5 L, Baso % (Auto) 0.1, Gran # 9.11 H, Lymph # (Auto) 0.7 L, Gregory # (Auto) 1.6 H, Eos # (Auto) 0.1, Baso # ( Auto) 0.01 I have reviewed the lab results: Yes Interpretation: Abnormal lab values (decr FS, elevated dig, elevated bun/creat; decr GLUC) - RAD Interpretation Narrative RAD Interpretations (Text): 12/24/17 17:51 HISTORY: weakness, end stage pancreatic ca COMPARISON: 12/09/2017 FINDINGS: LUNGS: There is a large right-sided pleural effusion. This has slightly decreased in size. PLEURA: No significant pleural effusion identified, no pneumothorax apparent. CARDIOVASCULAR: Moderate vascular congestion. Mild cardiomegaly OSSEOUS STRUCTURES: No significant abnormalities. VISUALIZED UPPER ABDOMEN: Normal. OTHER FINDINGS: None. IMPRESSION: Moderate vascular congestion. Large right-sided pleural effusion showing a slight decrease in size Radiology Orders: 12/24/17 13:17 CHEST PORTABLE [RAD] Stat Sign Hanger Supervisor: Radiologist - EKG Interpretation EKG Interpretation (Text): 12/24/17 17:52 NSR at 85 bpm, LAD, no ectopy, diffuse low voltage throughout leads, qs in leads III/F, no st-t changes, ABNL EKG; no gross changes compare with old ekg 2017 Interpreted by ED Physician: Yes Type: 12 lead EKG Comparison: Similar to previous EKG - Medication Orders Current Medication Orders: Dextrose/Sodium Chloride (Dextrose 5%/0.9% Ns 1000 Ml) 1,000 mls @ 100 mls/hr IV .Q10H CHRISTOPHER Last Admin: 12/24/17 17:11 Dose: 100 mls/hr eMAR Start Stop Document 12/24/17 17:11 [email or web address] (Rec: 12/24/17 17:11 [email or web address] [id number]) Intravenous Solution Start Date 12/24/17 Start Time 17:11 End Date 12/24/17 Discontinued Medications Dextrose (Dextrose 50% Inj) 50 ml IVP STAT STA Stop: 12/24/17 16:40 Last Admin: 12/24/17 17:08 Dose: 50 ml Comments: fs 46 IVP Administration Document 12/24/17 17:08 [email or web address] (Rec: 12/24/17 17:09 [email or web address] [id number]) Charges for Administration # of IVP Administrations 1 Furosemide (Lasix) 40 mg IVP STAT STA Stop: 12/24/17 13:19 Last Admin: 12/24/17 15:24 Dose: 40 mg MAR Blood Pressure Document 12/24/17 15:24 [email or web address] (Rec: 12/24/17 15:24 [email or web address] [id number]) Blood Pressure Blood Pressure (100/60-150/90) 114/64 IVP Administration Document 12/24/17 15:24 [email or web address] (Rec: 12/24/17 15:24 CAST [id number]) Charges for Administration # of IVP Administrations 1 Disposition/Present on Arrival - Present on Arrival Any Indicators Present on Arrival: No History of DVT/PE: No History of Uncontrolled Diabetes: No Urinary Catheter: No History of Decub. Ulcer: No History Surgical Site Infection Following: None - Disposition Have Diagnosis and Disposition been Completed?: Yes Diagnosis: Anasarca, Pancreatic cancer, Weakness, Pleural effusion, right, Elevated digoxin level, Leg weakness, bilateral, Hypoglycemia, Failure to thrive Disposition: HOSPITALIZED Disposition Time: 16:00 Patient Plan: Admission, Telemetry Patient Problems: Current Active Problems Problem Status Onset Anasarca Acute Elevated digoxin level Acute Leg weakness, bilateral Acute Pleural effusion, right Acute Pancreatic cancer Chronic Weakness Chronic Condition: STABLE
--- NOTE | 2017-12-24 13:41 | RAD ---
HISTORY: weakness, end stage pancreatic ca COMPARISON: 12/09/2017 FINDINGS: LUNGS: There is a large right-sided pleural effusion. This has slightly decreased in size. PLEURA: No significant pleural effusion identified, no pneumothorax apparent. CARDIOVASCULAR: Moderate vascular congestion. Mild cardiomegaly OSSEOUS STRUCTURES: No significant abnormalities. VISUALIZED UPPER ABDOMEN: Normal. OTHER FINDINGS: None. IMPRESSION: Moderate vascular congestion. Large right-sided pleural effusion showing a slight decrease in size
[2017-12-24 14:42] LABS: VENOUS BLOOD GAS BASE EXCESS -0.2 mmol/L (0.0-2.0); VENOUS BLOOD GAS PO2 51 mm/Hg (30-55); VENOUS BLOOD PH 7.33 (7.32-7.43)
[2017-12-24 14:46] LABS: BASO # 0.01 K/mm3 (0.0-2.0); BASO % 0.1 % (0.0-3.0); EOS # 0.1 (0.0-0.7); EOS % 0.5 % (1.5-5.0); GRAN # 9.11 (1.4-6.5); GRAN % 79.4 % (50.0-68.0); HEMOGLOBIN 9.8 g/dL (14.0-18.0); LYMPH # 0.7 (1.2-3.4); LYMPH % 5.9 % (22.0-35.0); MEAN CORPUSCULAR HEMOGLOBIN 28.7 pg (25.0-35.0); MEAN CORPUSCULAR HGB CONC 32.7 g/dl (31.0-37.0); MEAN PLATELET VOLUME 9.2 fl (7.0-11.0); MONO # 1.6 (0.1-0.6); MONO % 14.1 % (1.0-6.0); RBC 3.41 10^6/uL (3.5-6.1); RED CELL DISTRIBUTION WIDTH 15.3 % (11.5-14.5); WHITE BLOOD COUNT 11.5 10^3/ul (4.5-11.0)
[2017-12-24 14:50] LABS: TROPONIN I 0.04 ng/mL
[2017-12-24 14:59] LABS: INR 1.73 (0.93-1.08); PARTIAL THROMBOPLASTIN TIME 44.6 Seconds (25.1-36.5)
[2017-12-24] MEDS ORDERED: Dextrose 50% SYRINGE Inj (50 ml) ONE (16:35)
[2017-12-24] MEDS ORDERED: Dextrose 50% SYRINGE Inj (50 ml) IVP STA (16:39)
[2017-12-24 16:44] LABS: ALB/GLOB RATIO 0.6 (1.1-1.8); ALBUMIN 2.4 g/dL (3.0-4.8); ALT/SGPT 22 U/L (7-56); AST/SGOT 37 U/L (17-59); BLOOD UREA NITROGEN 57 mg/dL (7-21); CALCIUM 7.3 mg/dL (8.4-10.5); GFR AFRICAN-AMERICAN 41; GFR NON-AFRICAN AMERICAN 33; LIPASE < 10 U/L (23-300)
[2017-12-24 17:10] LABS: B-TYPE NATRIURETIC PEPTIDE 50000 pg/mL (0-450)
[2017-12-24] MEDS: Dextrose 5%/0.9% NS 1,000 ML IV SCH (17:11)
--- NOTE | 2017-12-24 18:22 | CARD ---
APPROVED REPORT EKG Measurement Heart [id number] <Conclusion> Undetermined rhythm Low voltage QRS Inferior infarct, age undetermined Cannot rule out Anterior infarct, age undetermined Abnormal ECG
[2017-12-24 23:05] VITALS: BMI 23.2
[2017-12-24] MEDS ORDERED: Pneumococcal 23-Valent Vaccine IM ONE (23:08)
[2017-12-25] MEDS ORDERED: Pantoprazole 40 mg EC Tab PO PRN (00:35)
[2017-12-25] MEDS ORDERED: Ergocalciferol 50,000 Intl Units Cap PO SCH (00:45)
[2017-12-25] MEDS: Dextrose 5%/0.9% NS 1,000 ML IV SCH ×2 (05:20→20:54)
[2017-12-25] MEDS ORDERED: Levothyroxine 25 MCG TAB PO SCH (06:00)
[2017-12-25 06:47] LABS: BASO # 0.01 K/mm3 (0.0-2.0); BASO % 0.1 % (0.0-3.0); EOS # 0.1 (0.0-0.7); EOS % 0.8 % (1.5-5.0); GRAN # 9.07 (1.4-6.5); GRAN % 80.3 % (50.0-68.0); HEMOGLOBIN 9.3 g/dL (14.0-18.0); LYMPH # 0.7 (1.2-3.4); LYMPH % 6.6 % (22.0-35.0); MEAN CELL VOLUME 87.5 fl (80.0-105.0); MEAN CORPUSCULAR HEMOGLOBIN 29.2 pg (25.0-35.0); MEAN CORPUSCULAR HGB CONC 33.3 g/dl (31.0-37.0); MEAN PLATELET VOLUME 9.1 fl (7.0-11.0); MONO # 1.4 (0.1-0.6); MONO % 12.2 % (1.0-6.0); RBC 3.19 10^6/uL (3.5-6.1); RED CELL DISTRIBUTION WIDTH 15.5 % (11.5-14.5); WHITE BLOOD COUNT 11.3 10^3/ul (4.5-11.0)
[2017-12-25 07:40] LABS: ALB/GLOB RATIO 0.5 (1.1-1.8); ALBUMIN 2.2 g/dL (3.0-4.8); ALT/SGPT 20 U/L (7-56); AST/SGOT 33 U/L (17-59); BLOOD UREA NITROGEN 56 mg/dL (7-21); CALCIUM 7.1 mg/dL (8.4-10.5); GFR AFRICAN-AMERICAN 38; GFR NON-AFRICAN AMERICAN 32; HDL CHOLESTEROL 29 mg/dL (29-60); LDL CHOLESTEROL < 30 mg/dL (0-129)
[2017-12-25] MEDS: Acetylcysteine 20% Inhal Soln (4ml) INH SCH ×3 (07:40→20:50)
[2017-12-25] MEDS: Ipratropium 0.02% Inhal Soln (0.5 mg/2.5 ml) UD IH SCH ×3 (07:41→20:50)
--- NOTE | 2017-12-25 08:16 | CON ---
DATE: 12/24/2017 REASON FOR DICTATION: Patient is seen for Dr. Yoder. Patient is well known to Dr. Yoder. Patient was seen and examined. Later on, the patient states that he goes to Dr. Yoder. We will transfer care tomorrow to Dr. Yoder. REASON FOR CONSULTATION: Generalized swelling and weakness of the body. BRIEF CLINICAL HISTORY: This is a 66-year-old male with past medical history significant for coronary artery disease, acute kidney injury, chronic renal insufficiency, cardiomyopathy, chronic atrial fibrillation, anemia, depression, resident of [facility] came in because of generalized weakness, inability to walk and blisters on both toes. Denies any chest pain. Denies any palpitation or shortness of breath. PAST MEDICAL HISTORY: Significant for cardiomyopathy, atrial fibrillation, pancreatic cancer, status post stent placement in the biliary duct, chronic atrial fibrillation, anemia, depression, acute kidney injury, chronic renal insufficiency. SOCIAL HISTORY: Stopped smoking many years ago. Denies any history of alcohol abuse. FAMILY HISTORY: Noncontributory. CURRENT MEDICATIONS: Patient is taking at home, Flomax 0.4 mg, bicarbonate, 40, levothyroxine 25 mcg, ipratropium 0.5, gabapentin 100, Lasix 40, digoxin 0.25 mg, calcium carbonate 1300, Pulmicort, aspirin, Eliquis, acetaminophen 650 mg daily. ALLERGIES: ALLERGY TO TAPE. PREVIOUS CARDIAC WORKUP: Most recent cardiac workup is as follows. Patient had echo in 04/2017, read by Dr. Urias that shows systolic function is severely impaired, global hypokinesis of left ventricle, mitral regurgitation, severe; mild to moderate pulmonary hypertension. RV systolic pressure 45, calculated ejection fraction 25%. REVIEW OF SYSTEMS: As per HPI. PHYSICAL EXAMINATION: VITAL SIGNS: Temperature afebrile, heart rate 95, blood pressure 119/ . HEENT: PERRLA. Extraocular muscles intact. NECK: Supple. No carotid bruit. No thyromegaly. CHEST: Clear to auscultation. HEART: S1 and S2 regular. ABDOMEN: Soft. EXTREMITIES: Clubbing and cyanosis negative LABORATORY DATA: Blood workup is as follows. WBC 11.9, hemoglobin 9.8, hematocrit 30, platelet count 310. Chemistry shows sodium 130, potassium 4, chloride 101, carbon dioxide 26, anion gap of 15, BUN 57, creatinine 2.2. BNP 50,000. IMPRESSION: Generalized swelling, anasarca, severe protein-calorie malnutrition, albumin is 2.4 which is since admission today, diabetes, hypertension, hyperlipidemia, pancreatic cancer, status post stent in the biliary duct, history of chronic atrial fibrillation on Eliquis. RECOMMENDATIONS: We will resume back renal adjusted dose of Eliquis; digoxin Sunday, Sunday, Sunday; continue diuretics. We will transfer care tomorrow to Dr. Terrence Yoder. Bryan Floerz MD
--- NOTE | 2017-12-25 10:27 | CARD ---
APPROVED REPORT EKG Measurement Heart [id number] <Conclusion> Undetermined rhythm Low voltage QRS Inferior infarct, age undetermined Abnormal ECG
[2017-12-25] MEDS ORDERED: DOBUTamine 500mg/250ml D5W 500 MG/250 ML BAG IV PRN ×2 (10:37→10:45)
[2017-12-25] MEDS ORDERED: Potassium Chloride 20 mEq/15 ml LIQ UD PO STA (11:49)
[2017-12-25] MEDS: Budesonide 0.5 mg/2 ml Inhal Susp UD IH SCH ×2 (13:59→20:50)
[2017-12-25] MEDS ORDERED: Digoxin 0.05 mg/mL Elixir 5mL PO SCH (14:00)
--- NOTE | 2017-12-25 16:03 | HP ---
DATE OF EXAM: 12/24/2017 Patient was seen and examined on the bedside on 12/24/2017. CHIEF COMPLAINT: Weakness, neurological deficit. HISTORY OF PRESENT ILLNESS: Mr. Franky Campuzano is a 66-year-old male with multiple medical problems, has diffuse body swelling of unknown duration. Patient states he felt overall generally fatigued and weak. Patient states that he cannot walk for weeks now. No tremor. No fall. Patient states he had no vision changes. No fever or chills. He has no chest pain. No palpitation. No abdominal pain. Having dizziness, lightheadedness. No loss of consciousness. Patient denies other complaints, but has no appetite. Patient sent to Emergency Department for further evaluation. Patient is not a good historian. PAST MEDICAL HISTORY: As above. Congestive heart failure, pneumonia, respiratory failure, dizziness, diabetes mellitus type 2, pancreatic cancer with metastasis, gastroesophageal reflux disease, history of substance abuse long time ago, coronary artery stent, and cardiac catheterization. FAMILY HISTORY: Father and mother, noncontributory. HABITS: Former smoker. Alcohol, yes. Substance abuse, yes but do not now. ALLERGIES: PATIENT IS ALLERGIC WITH TDAP. HOME MEDICATIONS: Reviewed by me. Protonix, Pulmicort, Lanoxin, Neurontin, and sodium bicarbonate. REVIEW OF SYSTEMS: Patient is seen and examined on the bedside, feeling still fatigued and tired. No weight loss. No chills. Absent vision changes. No hearing problem. Feeling shortness of breath. A 12 system review of systems is noted, all negative except above. PHYSICAL EXAMINATION: VITAL SIGNS: Temperature 98.6, pulse 88, respiratory rate 18, blood pressure 120/80 , pulse oximetry 99. HEENT: Head normocephalic, atraumatic. Eyes: PERRLA. Extraocular muscles intact. Conjunctivae clear. Nose patent. NECK: Supple. No carotid bruit, JVD, or thyromegaly. CHEST: Bilaterally symmetrical. HEART: S1 and S2 positive. LUNGS: Clear to auscultation. ABDOMEN: Soft. Bowel sounds present. No organomegaly. EXTREMITIES: Trace edema. No cyanosis. NEUROLOGIC: Patient is awake and alert. Follows simple command. LABORATORY DATA: White blood cells 11.5, hemoglobin 9.3, hematocrit noted , platelets 310. Sodium 138, potassium 4, BUN 57, creatinine 2, glucose noted ASSESSMENT AND PLAN: Mr. Franky Campuzano is a 66-year-old male with leukocytosis, anemia, renal insufficiency, hypoglycemia, brought to [facility] Emergency Room for anasarca and elevated digoxin level, we will repeat digoxin level. Swelling of the legs especially the right side, pancreatic cancer, weakness. Patient has a history of chest x-ray done and echocardiography done. Would consult with Dr. Mukherjee and Dr. Mora. Gastrointestinal and deep vein thrombosis prophylaxis. Repeat labs. We will follow up. Joy Nix MD MTDAnderson
--- NOTE | 2017-12-25 16:12 | PN ---
DATE: 12/25/2017 CARDIOLOGY FOLLOWUP SUBJECTIVE: The patient presented with marked weakness. He has a documented dilated cardiomyopathy with an EF in the 20%-25%. He also has some coronary artery disease. His main presentation now is marked weakness and dyspnea. PHYSICAL EXAMINATION: VITAL SIGNS: Blood pressure is 107/63, the heart rate is currently in the 70s, atrial fibrillation. NECK: Negative JVD. LUNGS: Decreased breath sounds bilaterally. HEART: Reveal S1, S2. EXTREMITIES: Without edema. LABORATORY DATA: His hemoglobin is 9.3, BUN and creatinine is 56 and 2.1. IMPRESSION: 1. Acute systolic congestive heart failure. 2. Dilated cardiomyopathy. 3. Low cardiac output syndrome. 4. Renal insufficiency. 5. Atrial fibrillation. RECOMMENDATIONS: Given these findings, we will transfer the patient down to telemetry today. We will start IV dobutamine. I have added Cardizem to his regimen to help control the heart rate. His long-term prognosis is poor given his history of pancreatic CA. Terrence Yoder MD
[2017-12-25] MEDS ORDERED: DiphenhydrAMINE 50 mg/ml Inj IVP STA (20:40)
[2017-12-25] MEDS: Albumin Human 25% (12.5 gm/50 ml) IV SCH (22:17)
[2017-12-26] MEDS: Dextrose 5%/0.9% NS 1,000 ML IV SCH ×2 (00:23→09:16)
--- NOTE | 2017-12-26 02:10 | PN ---
DATE: 12/25/2017 SUBJECTIVE: Patient is 66-year-old male. Patient is seen and examined at the bedside, looking comfortable. Feeling fatigued and tired. No nausea, vomiting, diarrhea. No hematuria or hematochezia. Still having swelling of the extremities. No fever, no chills. PHYSICAL EXAMINATION: VITAL SIGNS: Blood pressure 107/63, heart rate 70s with atrial fibrillation, respiratory rate 18. Patient is afebrile. HEENT: Head: Normocephalic, atraumatic. Eyes: PERRLA. Extraocular muscles intact. Conjunctivae clear. Nose: Patent. Mucous membrane moist. NECK: Supple. No carotid bruit. No JVD or thyromegaly. CHEST: Bilaterally symmetrical. HEART: S1 and S2 positive. LUNGS: Clear to auscultation. ABDOMEN: Soft. Bowel sounds present. No organomegaly. EXTREMITIES: Trace edema. No cyanosis. NEUROLOGIC: Patient is awake and alert. Follows simple command. MEDICATIONS: Atrovent, Cardizem, dextrose, dobutamine drip, vitamin, Ecotrin, Eliquis, Flomax, Lasix, Neurontin , Protonix, Pulmicort, sodium bicarbonate, Synthroid, Tylenol. LABORATORY DATA: White blood cells 11.3, hemoglobin 9.2, hematocrit 27.5, platelets 276. Glucose 116, 112, 94, 91. TSH 22.9. ASSESSMENT AND PLAN: Mr. Franky Campuzano is a 66-year-old male with leukocytosis, anemia, diabetes mellitus, hypothyroidism, hypokalemia, renal insufficiency, hyperphosphatemia, hypocalcemia, seen by the survey workers supervisor, Dr. Terrence Yoder. Patient has coronary artery disease. He has documented dilated cardiomyopathy with ejection fraction of 20% to 25%, acute systolic congestive heart failure, low cardiac output syndrome, atrial fibrillation. Dr. Terrence Yoder transferred patient to telemetry from medical floor, started IV dobutamine, added Cardizem to his regimen to help control the heart rate. His long-term prognosis is poor, given history of pancreatic cancer. We will try to call comfort care team. We will talk to the patient, I tried. Gastrointestinal, deep vein thrombosis prophylaxis. Repeat labs. We will follow up. Joy Nix MD [facility] # [id number] JACK
--- NOTE | 2017-12-26 02:38 | CON ---
DATE: 12/25/2017 PULMONARY CONSULT REFERRING PHYSICIAN: Swapna Guerrero MD. REASON FOR CONSULT: Pleural effusion, lung disease. HISTORY OF PRESENT ILLNESS: This is a 66-year-old gentleman with known history of cardiomyopathy, diabetes, history of pancreatic cancer with metastatic disease, GERD, history of substance abuse in the past, coronary artery disease, malnutrition with hypoalbuminemia, anasarca, comes in with feeling weak, short of breath. Chest x-ray shows bilateral pleural effusion, right greater than the left, leg swelling. No hemoptysis. No hematemesis. No hematuria. PAST MEDICAL HISTORY: As per history present illness. ALLERGIES: TO IV TAPES. MEDICATIONS: He is on Mucomyst 20% 3 mL inhaled every 8 hours, Atrovent inhaled every 8 hours, Cardizem 60 mg three times a day, started on dobutamine, also on vitamin D 50,000 units weekly, Ecotrin 81 mg daily, Eliquis 2.5 mg twice a day, Flomax 0.4 mg daily, digoxin 0.25 mg daily, Lasix 40 mg daily, gabapentin 100 mg daily, Protonix 40 mg daily, Pulmicort inhaled twice a day, bicarbonate three times a day, Synthroid 50 mcg daily, Tylenol p.r.n. REVIEW OF SYSTEMS: No headache. No rhinitis. Gets short of breath, cough. No chest pain. No nausea. Has increased abdominal girth. Has leg swelling. No dysuria. No diarrhea. PHYSICAL EXAMINATION: GENERAL: Lying in the bed. VITAL SIGNS: Temp is 98, heart rate 77, respiratory rate is 18, blood pressure 125/64, pulse ox 98% on nasal cannula. HEENT: Moist mucous membrane. Crowded airway. NECK: Supple. No JVD. LUNGS: Have decreased breath sounds at the both bases, right more than the left. HEART: S1 and S2. ABDOMEN: Soft. Has distention. Has ascites. EXTREMITIES: Does have anasarca. NEUROLOGICAL: Awake and alert. Follows simple command. LABORATORY DATA: Shows hemoglobin 9.3, hematocrit 27.9, WBC 11.3, platelet is 276. INR 1.73. PTT 45. VBG showed pH 7.33, pCO2 of 50, O2 of 51, glucose 112. Sodium 138, potassium 3.4, chloride 102, bicarbonate 28, BUN 256, creatinine 2.1, glucose is 94, calcium 7.1, phosphorus 5.1, AST 33, ALT 20, alk phos is 91. Albumin is 2.2. Digoxin level 3.1. IMPRESSION AND PLAN: Cardiomyopathy, bilateral pleural effusion, renal failure, atrial fibrillation, hypoalbuminemia, anasarca, diabetes, history of pancreatic cancer with metastatic disease. Agree with dobutamine, follow heart rate closely. We will suggest adding IV albumin together with Lasix. Try to help with diuresis. Had a thoracentesis done last admission. We will see if we can move fluid by medically. Keep head at 45 degrees. Bronchodilator. Follow up labs in the morning and we will follow with you. Bryan Mukherjee MD
[2017-12-26] MEDS: Levothyroxine 50 MCG TAB PO SCH (05:22)
[2017-12-26 06:05] LABS: HEMOGLOBIN 9.2 g/dL (14.0-18.0); MEAN CELL VOLUME 87.8 fl (80.0-105.0); MEAN CORPUSCULAR HEMOGLOBIN 28.8 pg (25.0-35.0); MEAN CORPUSCULAR HGB CONC 32.7 g/dl (31.0-37.0); MEAN PLATELET VOLUME 9.5 fl (7.0-11.0); RBC 3.2 10^6/uL (3.5-6.1); RED CELL DISTRIBUTION WIDTH 15.7 % (11.5-14.5); WHITE BLOOD COUNT 11.7 10^3/ul (4.5-11.0)
[2017-12-26 06:14] LABS: CALCIUM 7.1 mg/dL (8.4-10.5)
[2017-12-26] MEDS ORDERED: Digoxin 0.05 mg/mL Elixir 5mL PO SCH (07:51)
[2017-12-26] MEDS: Ipratropium 0.02% Inhal Soln (0.5 mg/2.5 ml) UD IH SCH ×3 (08:45→21:25)
[2017-12-26] MEDS: Acetylcysteine 20% Inhal Soln (4ml) INH SCH ×3 (08:45→21:25)
[2017-12-26] MEDS: DOBUTamine 500mg/250ml D5W 500 MG/250 ML BAG IV PRN (09:18)
[2017-12-26] MEDS: diltiaZEM 120 mg/24 Hours CD Cap PO SCH (09:20)
--- NOTE | 2017-12-26 10:19 | CP.PCM.CON ---
History of Present Illness - History of Present Illness History of Present Illness: Palliative consult requested by Dr Cuong Nix Reason: Goals of care 65 year old male with history of pancreatic cancer who presented with generalized anasarca, weakens, fatigue,shortness of breath and decreased appetite. He denies fever, chills, nausea, vomiting, chest pain, abdominal pain , dizziness, diarrhea. Chest xray showing moderate vascular congestion, large right sided pleural effusion. PMHX CHF, CAD s/p stent, pneumonia, DM, metastatic pancreatic cancer, alcohol dependency, anasarca, ascites, PVD Social History: Former smoker, past alcohol use, denies illicit drug use. Single , lives alone. Family History: Non contributory Advance care planning: POLST, full code status. Review of Systems: As per HPI, otherwise negative review Past Patient History - Infectious Disease Hx of Infectious Diseases: None - Tetanus Immunizations Tetanus Immunization: Unknown - Past Medical History & Family History Past Medical History?: Yes - Past Social History Smoking Status: Never Smoked - CARDIAC Hx Cardiac Disorders: Yes (cad) Hx Cardia Arrhythmia: Yes (afib) Hx Congestive Heart Failure: Yes Hx Hypercholesterolemia: Yes Hx Hypertension: Yes Hx Peripheral Edema: Yes (ble feet +2 edema/legs +2 pitting edema) - PULMONARY Hx Respiratory Disorders: Yes Hx Pneumonia: Yes - NEUROLOGICAL Hx Neurological Disorder: Yes Hx Dizziness: Yes - HEENT Hx HEENT Problems: No - RENAL Hx Chronic Kidney Disease: Yes Hx Kidney Stones: Yes - ENDOCRINE/METABOLIC Hx Diabetes Mellitus Type 2: Yes - HEMATOLOGICAL/ONCOLOGICAL Hx Blood Disorders: Yes Hx Anemia: Yes Hx Cancer: Yes (pancreatic) - INTEGUMENTARY Hx Dermatological Problems: Yes (jaundiced) Other/Comment: ble feet multiple blisters and broken blisters red swollen skin blister left heel purulent drainage to foot wounds,swelling to hands, scrotal edema, r forefinger tip red swollen painful with dry dark brown wound under nail , r mid back 1cm round red wound with pinhole draining dark brown scant, bruise right side vack, bruise r hip, red sacrum buttocks 0.4cm round small opening, b/ l groin red - MUSCULOSKELETAL/RHEUMATOLOGICAL Hx Musculoskeletal Disorders: Yes Hx Arthritis: Yes Hx Falls: No Hx Unsteady Gait: Yes (bedridden can't walk) - GASTROINTESTINAL Hx Gastrointestinal Disorders: Yes (gi bleed) Hx Gastroesophageal Reflux: Yes Hx Ulcer: Yes Other/Comment: bowel sx - GENITOURINARY/GYNECOLOGICAL Hx Prostate Problems: Yes - PSYCHIATRIC Hx Psychophysiologic Disorder: No Hx Substance Use: No - SURGICAL HISTORY Hx Surgeries: Yes (t&a, biliary drain in and out, rcw pac) Hx Cardiac Catheterization: Yes Hx Coronary Stent: Yes Other/Comment: biliary drain, lap gastrojejunostomy 04/21 - ANESTHESIA Hx Anesthesia Reactions: No Hx Malignant Hyperthermia: No Meds Allergies/Adverse Reactions: Allergies Allergy/AdvReac Type Severity Reaction Status Date / Time iv tape Allergy Mild RASH Uncoded 12/09/17 16:37 - Medications Medications: Current Medications Acetaminophen (Tylenol 325mg Tab) 650 mg PO TID PRN PRN Reason: Pain, moderate (4-7) Last Admin: 12/25/17 20:17 Dose: 650 mg Acetylcysteine (Acetylcysteine 20%) 3 ml INH Q8 [facility] Last Admin: 12/26/17 08:45 Dose: Not Given Albumin Human (Albumin Human 25% (12.5 Gm/50 Ml)) 12.5 gm IV Q12 [facility] Last Admin: 12/25/17 22:17 Dose: 12.5 gm Apixaban (Eliquis) 2.5 mg PO BID [facility] PRN Reason: Protocol Last Admin: 12/26/17 09:20 Dose: 2.5 mg Aspirin (Ecotrin) 81 mg PO DAILY [facility] Last Admin: 12/26/17 09:20 Dose: 81 mg Budesonide (Pulmicort Respules) 0.5 mg IH Q12 [facility] Last Admin: 12/25/17 20:50 Dose: Not Given Calcium Carbonate (Oscal) 1,000 mg PO BID [facility] Last Admin: 12/26/17 09:20 Dose: 1,000 mg Digoxin (Lanoxin Elixir Soln) 0.125 mg PO 1400 [facility] Diltiazem HCl (Cardizem Cd) 120 mg PO DAILY [facility] Last Admin: 12/26/17 09:20 Dose: 120 mg Ergocalciferol (Drisdol 50,000 Intl Units Cap) 1 cap PO Q7D [facility] Last Admin: 12/25/17 01:02 Dose: 1 cap Furosemide (Lasix) 40 mg IVP Q12 [facility] Gabapentin (Neurontin) 100 mg PO DAILY [facility] PRN Reason: Protocol Last Admin: 12/26/17 09:20 Dose: 100 mg Dextrose/Sodium Chloride (Dextrose 5%/0.9% Ns 1000 Ml) 1,000 mls @ 100 mls/hr IV .Q10H [facility] Last Admin: 12/26/17 09:16 Dose: 100 mls/hr Dobutamine HCl/Dextrose (Dobutamine/Dextrose 5% 500mg/250ml) 500 mg in 250 mls @ 16.533 mls/hr IV .Q15H8M PRN; Protocol; 7.5 MCG/KG/MIN PRN Reason: Shortness of Breath Last Admin: 12/26/17 09:18 Dose: 7.5 mcg/kg/min, 16.533 mls/hr Ipratropium Baskin (Atrovent) 0.5 mg IH TIDRESP [facility] Last Admin: 12/26/17 08:45 Dose: Not Given Levothyroxine Sodium (Synthroid) 50 mcg PO 0600 [facility] Last Admin: 12/26/17 05:22 Dose: 50 mcg Pantoprazole Sodium (Protonix Ec Tab) 40 mg PO ACB PRN PRN Reason: reflux Sodium Bicarbonate (Sodium Bicarbonate Tab) 1,300 mg PO TID [facility] Last Admin: 12/26/17 09:20 Dose: 1,300 mg Sodium Chloride (Isabella Nasal Hagerman) 0 ml NS TID PRN PRN Reason: Nasal congestion Last Admin: 12/25/17 20:06 Dose: 2 sprays Tamsulosin HCl (Flomax) 0.4 mg PO DAILY [facility] Last Admin: 12/26/17 09:20 Dose: 0.4 mg Physical Exam - Constitutional Appears: Cachectic, Chronically Ill - Head Exam Head Exam: NORMOCEPHALIC - Eye Exam Eye Exam: Normal appearance, PERRL - ENT Exam ENT Exam: Mucous Membranes Moist, Normal Oropharynx - Neck Exam Neck exam: Positive for: Normal Inspection - Respiratory Exam Respiratory Exam: Accessory Muscle Use, Decreased Breath Sounds Additional comments: dyspnea - Cardiovascular Exam Cardiovascular Exam: Tachycardia, +S1, +S2 - GI/Abdominal Exam GI & Abdominal Exam: Diminished Bowel Sounds, Distended, Soft - Extremities Exam Additional comments: PVD lower extremities, edema of upper extremities R>L - Back Exam Back exam: NORMAL INSPECTION - Neurological Exam Neurological exam: Alert, Oriented x3 - Skin Skin Exam: Dry, Pallor - Additional Findings Additional findings: Palliative performance scale rating 30 % Results - Vital Signs Recent Vital Signs: Last Vital Signs Temp 97.6 F 12/26/17 06:00 Pulse 69 12/26/17 09:20 Resp 20 12/26/17 06:00 BP 137/74 12/26/17 09:20 Pulse Ox 99 12/26/17 06:00 - Labs Result Diagrams: 12/26/17 05:48 12/26/17 05:48 Labs: Laboratory Results - last 24 hr 12/25/17 12/25/17 12/25/17 06:30 11:04 16:06 WBC RBC Hgb Hct MCV MCH MCHC RDW Plt Count MPV Sodium Potassium Chloride Carbon Dioxide Anion Gap BUN Creatinine Est GFR ( Amer) Est GFR (Non-Af Amer) POC Glucose (mg/dL) 94 112 H Random Glucose Hemoglobin A1c 5.0 Calcium 12/25/17 12/25/17 12/26/17 16:08 21:22 05:48 WBC 11.7 H RBC 3.20 L Hgb 9.2 L Hct 28.1 L MCV 87.8 MCH 28.8 MCHC 32.7 RDW 15.7 H Plt Count 272 MPV 9.5 Sodium Potassium Chloride Carbon Dioxide Anion Gap BUN Creatinine Est GFR ( Amer) Est GFR (Non-Af Amer) POC Glucose (mg/dL) 116 H 129 H Random Glucose Hemoglobin A1c Calcium 12/26/17 12/26/17 05:48 07:42 WBC RBC Hgb Hct MCV MCH MCHC RDW Plt Count MPV Sodium 140 Potassium 3.5 L Chloride 102 Carbon Dioxide 27 Anion Gap 14 BUN 59 H Creatinine 2.0 H Est GFR ( Amer) 41 Est GFR (Non-Af Amer) 33 POC Glucose (mg/dL) 162 H Random Glucose 163 H Hemoglobin A1c Calcium 7.1 L Assessment & Plan - Assessment and Plan (Free Text) Assessment: 65 year old male with history of CHF,CAD, DM metastatic pancreatic cancer who is admitted with weakness, anasarca, anorexia, cachexia,MAGALY on CKD, anemia, severe deconditioning. Mr Campuzano and I have met during pervious admissions. He is alert and oriented, severely debilitated. He admits that he is health is declining. I explained that due to underlying cancer and other comorbidities that his health will continue to decline. He verbalized understanding of the situation. 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 Hospice services explained in detail Questions answered. Option for hospice care offered. Patient states that he wants to think about this. Also spoke to him about resuscitation status, right now he is full code. Explained burdens of resuscitation in semitone with illness such as his. Encouraged to consider DNR/DNI status. Patient expressed that he is unsure what to do. Reassured that palliative services would assist him in decision making Addendum:Patient's respiratory status declining. Both Dr Lee and I spoke with patient. Burdens of resuscitation explained. The patient states he does not want to be intubated nor does he want CPR. He is rescinding the POLST dated 11/21/17. The patient verified this information when asked 2 more times. DNR/DNI directive signed by patient. VM left for patient's sister in law Yesenia Campuzano to update her of his condition and change in resuscitation status. Time spent in goals of care and advance care planning discussion, 45 minutes Plan: Psychosocial distress. Goals of care and advance care planning. POLST of 11/08/17 rescinded. Patient now DNR/DNI. Dr Cuong Nix notified of status. Pulmonary: Lasix, BIPAP, nebulizers, monitor fluid intake, consider thoracentisis Cardiology: Continue Dobutamine, Cardizem, Digoxin
[2017-12-26 11:20] LABS: ARTERIAL BLOOD GAS O2 SAT 99.7 % (95-98); ARTERIAL BLOOD GAS PCO2 52 mm/Hg (35-45); ARTERIAL BLOOD GAS PH 7.29 (7.35-7.45); ARTERIAL BLOOD GAS TCO2 26.6 mmol.L (22-28)
[2017-12-26] MEDS: Albumin Human 25% (12.5 gm/50 ml) IV SCH ×2 (11:27→21:01)
[2017-12-26] MEDS: Budesonide 0.5 mg/2 ml Inhal Susp UD IH SCH ×2 (11:40→21:25)
--- NOTE | 2017-12-26 11:47 | PN ---
DATE: 12/26/2017 CARDIOLOGY FOLLOWUP SUBJECTIVE: The patient is on IV dobutamine. He still complains of shortness of breath. PHYSICAL EXAMINATION VITAL SIGNS: Blood pressure is 124/60, the heart rate is in the 60s. NECK: Negative JVD. LUNGS: Decreased breath sounds bilaterally. HEART: Reveals S1 and S2. EXTREMITIES: Without edema. LABORATORY DATA: Pending from today. IMPRESSION: 1. Acute systolic congestive heart failure. 2. Dilated cardiomyopathy. 3. History of pancreatic cancer. 4. Anemia. 5. Renal insufficiency. PLAN: Given these findings, we will decrease his Cardizem dosage, we will increase his Lasix to IV Lasix and we will increase his IV dobutamine dosage. Terrence Yoder MD
--- NOTE | 2017-12-26 12:41 | RAD ---
HISTORY: dyspnea COMPARISON: 12/24/2017. 11/30/2017. FINDINGS: LUNGS: Stable consolidative changes right lung. Stable lower lobe infiltrate on the left. PLEURA: Stable bilateral pleural effusions right larger than left. CARDIOVASCULAR: Venous access catheter in stable, satisfactory position. OSSEOUS STRUCTURES: No significant abnormalities. VISUALIZED UPPER ABDOMEN: Normal. OTHER FINDINGS: None. IMPRESSION: No significant interval change compared to the prior examination(s).
[2017-12-26] MEDS ORDERED: Digoxin 250 mcg (0.25 mg) Tab PO SCH (14:00)
--- NOTE | 2017-12-26 18:05 | PN ---
DATE: 12/26/2017 PULMONARY PROGRESS NOTE REFERRING PHYSICIAN: Joy Nix MD SUBJECTIVE: He is lying in the bed, head at 45 degrees, on noninvasive ventilation. Earlier today, events noted . The patient does not want to be intubated or resuscitated. He was made DNR. Seen by Palliative Care. Does not want any aggressive measure at the present time. Wants continuous Port-A-Cath. There is no cough. No sputum production. No hemoptysis. Lyons catheter was placed dark urine. Leg swelling is better. OBJECTIVE: GENERAL: On noninvasive ventilation. VITAL SIGNS: Temperature is 98, heart rate 72, respiratory rate is 20, blood pressure 127/84, pulse ox 92% on noninvasive ventilation. NECK: Supple. No JVD. LUNGS: Decreased breath sound. HEART: S1 and S2. ABDOMEN: Soft, has ascites. EXTREMITIES: Does have edema. NEUROLOGIC: Awake and alert. Follows simple command. MEDICATIONS: He is on Mucomyst 20% inhaled every 8 hours, also getting albumin 25% 12.5 g IV every 12 hours, Atrovent inhaled three times a day, Cardizem CD 120 mg daily, getting dobutamine IV, vitamin D 50,000 units every 7 days, Ecotrin 81 mg daily, Eliquis 2.5 mg twice a day, Flomax 0.4 mg daily, digoxin 0.125 mg daily, Lasix 40 mg twice a day with albumin, gabapentin 100 mg daily, Protonix 40 mg daily, budesonide inhaled twice a day, bicarbonate three times a day, Synthroid 50 mcg daily, Tylenol p.r.n. basis. LABORATORY DATA: Shows hemoglobin 9.2, hematocrit 28.1, WBC 11.7, and platelet count is 272. Has an ABG done today shows pH 7.29, pCO2 of 52, O2 of 106 that was on supplement 40% oxygen and was placed on noninvasive ventilation. Sodium 140, potassium 3.5, chloride 102, bicarbonate 27. BUN 15 and creatinine 2. Glucose 189. Calcium is 7.1. Chest x-ray was done this morning shows bilateral pleural effusion, right more than the left. IMPRESSION AND PLAN: Cardiomyopathy, pleural effusion, respiratory failure requiring noninvasive ventilation, atrial fibrillation, hypoalbuminemia, anasarca, diabetes, renal failure, pancreatic cancer, metastatic disease. Spoke to nursing staff. Also spoke to nurse practitioner on the floor. The patient was made do not resuscitate. Being treated aggressively with medications. Continue bronchodilator. Keep head at 45 degrees. Continue diuretics with albumin. Follow electrolyte closely. Overall poor prognosis. We will continue supportive care. Thank you and we will follow with you. Bryan Mukherjee MD
[2017-12-27] MEDS: DOBUTamine 500mg/250ml D5W 500 MG/250 ML BAG IV PRN ×2 (02:59→18:01)
[2017-12-27] MEDS: Levothyroxine 50 MCG TAB PO SCH (05:21)
--- NOTE | 2017-12-27 06:18 | CON ---
DATE: 12/26/2017 HISTORY OF PRESENT ILLNESS: The patient is seen and examined at bedside. This is a 66-year-old gentleman with severe left ventricular systolic dysfunction and severe mitral regurgitation in the setting of metastatic pancreatic cancer who was admitted for fatigue, tiredness, and failure to thrive. He was found to have some pleural effusion and was complaining also of some shortness of breath. He was started on Lasix with mixed success. He was also treated for his severe left ventricular heart failure with heart rate controlled and ionotropic support. Today, the patient started to experience a little bit more shortness of breath and ICU consult was called for further evaluation. No fever, no chills, no sweats. No nausea, no vomiting, no diarrhea. PAST MEDICAL HISTORY: Metastatic pancreatic cancer, on chemotherapy. The patient had chemotherapy withhold for few months due to his deteriorating clinical status. Severe left ventricular systolic dysfunction. Coronary artery disease, atrial fibrillation, pleural effusion, hypothyroidism, and BPH. ALLERGIES: IV TAPE. FAMILY HISTORY: Noncontributory. SOCIAL HISTORY: History of substance abuse in the past. Currently, not smoking. REVIEW OF SYSTEM: Review of 12-organ system other than mentioned in history of present illness is negative. CURRENT MEDICATIONS: Tylenol p.r.n., Mucomyst inhalations, albumin, Eliquis, aspirin, inhaled Pulmicort, D5 normal saline at 100 mL/hour, digoxin, Cardizem CD, dobutamine, Lasix 40 mg IV every 12 hours, Neurontin, Synthroid, Protonix, potassium supplementation, sodium bicarbonate, and Flomax. PHYSICAL EXAMINATION: VITAL SIGNS: Heart rate 105, blood pressure 127/84, respiratory rate 20. The patient is on BiPAP. HEENT: Head and neck atraumatic. LUNGS: Few crackles on the left side. Decreased breath sounds in the right side. HEART: Irregular rate and rhythm. S1, S2 distant. ABDOMEN: Soft, nontender, nondistended. MUSCULOSKELETAL: Muscle wasting, trace bilateral pedal and ankle edema. NEUROLOGIC: The patient moves all extremities spontaneously. SKIN: Moist. PSYCHIATRIC: The patient is alert, awake, in mild respiratory distress; however, capable of making his own decision, oriented x3. Maintains thoughtful conversation. LABORATORY DATA: WBC 11.7, hemoglobin 9.2, platelet count 272. Sodium 140, potassium 3.5, chloride 102, carbon dioxide 27, BUN 59, creatinine 2, glucose 189. ABG, 7.29/52/106. Chest x-ray, bilateral pleural effusion, right more than left, some vascular congestion. ASSESSMENT AND PLAN: This is a 66-year-old gentleman with metastatic pancreatic cancer, severe left ventricular systolic dysfunction with severe mitral regurgitation, currently DNR/DNI and awaits hospice evaluation. Palliative care nurse is at bedside and evaluating the patient as well. At present time, I agree with giving consideration to palliative/comfort care and hospice evaluation. Meanwhile, continue with ionotropic support, conservative fluid management. Maintain urine output more than 0.5 mL per kg per hour. BiPAP. The patient is DNR/DNI and will not be intubated. Once palliative/comfort care transition occur, this plan may be . Okay to monitor on telemetry for the present time. Please reconsult ICU if clinical or social situation changes or any other questions or concerns arise. Jared Lee MD
[2017-12-27 07:05] LABS: ALB/GLOB RATIO 0.6 (1.1-1.8); ALBUMIN 2.3 g/dL (3.0-4.8); CALCIUM 7.3 mg/dL (8.4-10.5)
[2017-12-27] MEDS: Ipratropium 0.02% Inhal Soln (0.5 mg/2.5 ml) UD IH SCH ×2 (08:05→13:28)
[2017-12-27] MEDS: Acetylcysteine 20% Inhal Soln (4ml) INH SCH ×2 (08:05→13:28)
--- NOTE | 2017-12-27 08:47 | PN ---
DATE: 12/26/2017 SUBJECTIVE: This is a patient is 66-year-old male. Patient is seen and examined at bedside, looking comfortable, having BiPAP, non-invasive ventilation. Today's events noted. The patient does not want intubation or resuscitation. He was made DNR after long time discussion with Genevieve, nurse practitioner. She spoke to Paramonte and the patient. Seen by Palliative Care. Do not want any aggressive measures at that time. No more coughing. No sputum production. No fever, no chills. Has Lyons catheter. PHYSICAL EXAMINATION: VITAL SIGNS: Temperature 98.2, pulse 72, respiratory rate 18, blood pressure 130/80, pulse oximetry is 92% on noninvasive ventilation. NECK: Supple. No carotid bruit. No JVD or thyromegaly. LUNGS: Decreased breath sounds. HEART: S1 and S2 positive. ABDOMEN: Soft. Has ascites. fluid trill is positive. EXTREMITIES: Has edema. NEUROLOGICAL: Patient is awake and alert. Follows simple commands. MEDICATIONS: Mucomyst, albumin, Cardizem, vitamin D, Ecotrin, Eliquis, Flomax, gabapentin, Protonix, inhaled bronchodilators, Tylenol. LABORATORY DATA: Hemoglobin 9.2, hematocrit 28.1, white blood cells 11.7, platelets 272. Sodium 140, potassium 3.5, BUN 16, creatinine 2. Glucose 189. ASSESSMENT AND PLAN: Mr. Franky Campuzano has cardiomyopathy, pleural effusion multiple times, history of thoracentesis, respiratory failure requiring non-invasive ventilation, atrial fibrillation, hyperalbuminemia, anasarca, uncontrolled diabetes mellitus, renal failure, pancreatic cancer with metastatic disease. Length of time discussion done with the patient and nurse practitioner, Genevieve, and the patient's nurse. Patient was made do not resuscitate, being evaluated by comfort care team, Juli Bishop. Continue bronchodilators. Continue diuretics with albumin and follow up electrolytes very closely. Poor prognosis. Gastrointestinal and deep venous thrombosis prophylaxis. We will follow up. Joy Nix MD JACK
--- NOTE | 2017-12-27 10:57 | PN ---
DATE: 12/27/2017 CARDIOLOGY FOLLOWUP SUBJECTIVE: The patient's breathing has not been improved by increasing milrinone. PHYSICAL EXAMINATION: VITAL SIGNS: Blood pressure is 135/60, the heart rates in the 70s. NECK: Negative JVD. LUNGS: Decreased breath sounds. HEART: Reveal S1, S2. EXTREMITIES: Without change. LABORATORY DATA: Hemoglobin is 9.1. Chemistries were not drawn today. IMPRESSION: 1. Recurrent dyspnea despite aggressive ionotropic therapy as well as diuretics. 2. Dilated cardiomyopathy. 3. History of pancreatic cancer. 4. Renal insufficiency. 5. Anemia. PLAN: Given these findings, the patient was DNR/DNI. We will continue his IV milrinone. Terrence Yoder MD
[2017-12-27] MEDS: diltiaZEM 120 mg/24 Hours CD Cap PO SCH (11:20)
[2017-12-27] MEDS ORDERED: Potassium Chloride 20 mEq/15 ml LIQ UD PO STA (12:04)
[2017-12-27] MEDS: Albumin Human 25% (12.5 gm/50 ml) IV SCH ×2 (12:04→22:53)
--- NOTE | 2017-12-27 13:29 | CP.PCM.PN ---
Subjective - Date & Time of Evaluation Date of Evaluation: 12/27/17 Time of Evaluation: 10:00 - Subjective Subjective: Alert, weak. BIPAP in use Objective - Vital Signs/Intake and Output Vital Signs (last 24 hours): Temp Pulse Resp BP Pulse Ox 97.1 F L 84 18 119/60 98 12/27/17 12:00 12/27/17 12:00 12/27/17 12:00 12/27/17 12:00 12/27/17 05:49 Intake and Output: 12/27/17 12/27/17 06:59 18:59 Intake Total 574 Output Total 200 Balance 374 - Medications Medications: Current Medications Acetaminophen (Tylenol 325mg Tab) 650 mg PO TID PRN PRN Reason: Pain, moderate (4-7) Last Admin: 12/25/17 20:17 Dose: 650 mg Acetylcysteine (Acetylcysteine 20%) 3 ml INH Q8 [facility] Last Admin: 12/27/17 08:05 Dose: 3 ml Albumin Human (Albumin Human 25% (12.5 Gm/50 Ml)) 12.5 gm IV Q12 [facility] Last Admin: 12/27/17 12:04 Dose: 12.5 gm Apixaban (Eliquis) 2.5 mg PO BID [facility] PRN Reason: Protocol Last Admin: 12/27/17 11:18 Dose: 2.5 mg Aspirin (Ecotrin) 81 mg PO DAILY [facility] Last Admin: 12/27/17 11:19 Dose: 81 mg Budesonide (Pulmicort Respules) 0.5 mg IH Q12 [facility] Last Admin: 12/26/17 21:25 Dose: Not Given Calcium Carbonate (Oscal) 1,000 mg PO BID [facility] Last Admin: 12/27/17 11:19 Dose: 1,000 mg Digoxin (Lanoxin Elixir Soln) 0.125 mg PO 1400 [facility] Last Admin: 12/26/17 14:21 Dose: Not Given Diltiazem HCl (Cardizem Cd) 120 mg PO DAILY [facility] Last Admin: 12/27/17 11:20 Dose: 120 mg Ergocalciferol (Drisdol 50,000 Intl Units Cap) 1 cap PO Q7D [facility] Last Admin: 12/25/17 01:02 Dose: 1 cap Furosemide (Lasix) 40 mg IVP Q12 [facility] Last Admin: 12/27/17 11:20 Dose: 40 mg Gabapentin (Neurontin) 100 mg PO DAILY [facility] PRN Reason: Protocol Last Admin: 12/27/17 11:19 Dose: 100 mg Dextrose/Sodium Chloride (Dextrose 5%/0.9% Ns 1000 Ml) 1,000 mls @ 100 mls/hr IV .Q10H [facility] Last Admin: 12/26/17 09:16 Dose: 100 mls/hr Dobutamine HCl/Dextrose (Dobutamine/Dextrose 5% 500mg/250ml) 500 mg in 250 mls @ 16.533 mls/hr IV .Q15H8M PRN; Protocol; 7.5 MCG/KG/MIN PRN Reason: Shortness of Breath Last Admin: 12/27/17 02:59 Dose: 7.5 mcg/kg/min, 16.533 mls/hr Ipratropium [place] (Atrovent) 0.5 mg IH TIDRESP [facility] Last Admin: 12/27/17 08:05 Dose: 0.5 mg Levothyroxine Sodium (Synthroid) 50 mcg PO 0600 [facility] Last Admin: 12/27/17 05:21 Dose: 50 mcg Pantoprazole Sodium (Protonix Ec Tab) 40 mg PO ACB PRN PRN Reason: reflux Sodium Bicarbonate (Sodium Bicarbonate Tab) 1,300 mg PO TID [facility] Last Admin: 12/27/17 11:18 Dose: 1,300 mg Sodium Chloride ([place] Nasal [place]) 0 ml NS TID PRN PRN Reason: Nasal congestion Last Admin: 12/25/17 20:06 Dose: 2 sprays Tamsulosin HCl (Flomax) 0.4 mg PO DAILY [facility] Last Admin: 12/27/17 11:19 Dose: 0.4 mg - Labs Labs: 12/26/17 05:48 12/27/17 06:30 PT 20.0 SECONDS (9.4-12.5) H 12/24/17 14:11 INR 1.73 (0.93-1.08) H 12/24/17 14:11 APTT 44.6 Seconds (25.1-36.5) H 12/24/17 14:11 - Constitutional Appears: Cachectic, Chronically Ill - Eye Exam Eye Exam: Normal appearance - ENT Exam ENT Exam: Mucous Membranes Moist - Respiratory Exam Respiratory Exam: Accessory Muscle Use, Decreased Breath Sounds Additional comments: BIPAP - Cardiovascular Exam Cardiovascular Exam: Irregular Rhythm, +S1, +S2 - GI/Abdominal Exam GI & Abdominal Exam: Soft, Normal Bowel Sounds - Extremities Exam Additional comments: PVD, edema of lower extremities R> L - Neurological Exam Neurological Exam: Alert - Skin Skin Exam: Dry, Pallor Assessment and Plan - Assessment and Plan (Free Text) Assessment: 66 year old male with history of DM, HTN, dilated cardiomyopathy, pancreatic cancer who is admitted with weakness, respiratory insufficiency, MAGALY and anemia. The patient is weak, dyspnea with exertion, no using BIPAP. Milrinone drip. Denies pain. The patient has not made a decision regarding hospice care. Plan: Continue BIPAP, Lasix, nebulizer treatments Cardiology: Dobutamine, Cardizem, Digoxin> DVT preverntion:Continue Eliquis Goals of care
[2017-12-27] MEDS ORDERED: Morphine 4 mg/ml ISec IM PRN (21:27)
--- NOTE | 2017-12-27 21:31 | PN ---
DATE: 12/27/2017 PULMONARY PROGRESS NOTE REFERRING PHYSICIAN: Joy Nix MD. SUBJECTIVE: The patient is lying in the bed, head at 45 degrees, on nasal cannula oxygen. Has the birthday today. Friends came in to celebrate his birthday at the bedside. He is short of breath, minimal exertion. Has anasarca. No chest pain. No nausea. Has back pain. OBJECTIVE: GENERAL: In no acute distress. VITAL SIGNS: Temperature is 98, heart rate is 70, respiratory rate is 20, blood pressure 160/83. HEENT: Moist mucous membrane. Crowded airway. NECK: Supple. No JVD. LUNGS: Have decreased breath sounds at the bases. Scattered rhonchi. HEART: S1 and S2. ABDOMEN: Soft, nontender. No organomegaly. Has ascites. EXTREMITY: Has edema, has anasarca. NEUROLOGICAL: Awake and alert. Follows simple command. LABORATORY DATA: Reviewed and noted. Blood sugar was 80 today. MEDICATIONS: He is on Mucomyst inhaled every 8 hours, albumin 20% 12.5 g IV every 12 hours, Atrovent inhaled three times a day, Cardizem 120 mg daily, IV fluid D5 normal saline 100 mL/hour, he is on dobutamine 2.5 mcg/kg/minute, vitamin D 50,000 units weekly, Ecotrin 81 mg daily, Eliquis 2.5 mg daily, Flomax 0.4 mg daily, digoxin 0.125 mg daily, Lasix 40 mg every 12 hours, Neurontin 100 mg daily, nasal spray three times a day p.r.n., Protonix 40 mg before breakfast, Pulmicort inhaled twice a day, bicarbonate three times a day, Synthroid 50 mcg daily, Tylenol p.r.n. basis. IMPRESSION AND PLAN: Cardiomyopathy, pleural effusion, respiratory failure requiring noninvasive ventilation, atrial fibrillation, hypoalbuminemia, anasarca, diabetes, renal failure, pancreatic cancer, metastatic disease. Overall poor prognosis. Continue bronchodilator. Keep head at 45 degrees. Spoke to friends at bedside. Also spoke to nursing staff. We will continue make him comfortable. For now, he is on dobutamine, Lasix, albumin. Continue pain management. Thank you and we will follow with you. Bryan Mukherjee MD [facility] # [id number]
[2017-12-28 01:51] VITALS: BP 155/77
--- NOTE | 2017-12-28 04:15 | CP.PCM.PN ---
Subjective - Date & Time of Evaluation Date of Evaluation: 12/28/17 Time of Evaluation: 04:14 - Subjective Subjective: Patient was seen because he claimed that he was hallucinating and he had 8 beats of VTACH at 01:23 AM on rhythm strip. Has been having PVCs' from early part of shift. He knows where he is at, he knows what year is this, can not tell what he is hallucinating about, requests some medications to help him relax. Has no complaints of chest pain, sob, headache, dizziness. Medical record was reviewed. This 66 year old white male was admitted with generalized fatigue and weakness, dizziness, anorexia, lightheadedness. Has PMH of CHF, PNA, respiratory failure, DM II , pancreatic cancer with mets, CAD, coronary stent placement , substance abuse. Digoxin level was :3.1. Objective - Vital Signs/Intake and Output Vital Signs (last 24 hours): Temp Pulse Resp BP Pulse Ox 97.1 F L 78 19 155/77 H 99 12/28/17 00:01 12/28/17 02:00 12/28/17 00:01 12/28/17 00:01 12/28/17 00:01 Intake and Output: 12/27/17 12/28/17 18:59 06:59 Intake Total 250 Balance 250 - Medications Medications: Current Medications Acetaminophen (Tylenol 325mg Tab) 650 mg PO TID PRN PRN Reason: Pain, moderate (4-7) Last Admin: 12/25/17 20:17 Dose: 650 mg Acetylcysteine (Acetylcysteine 20%) 3 ml INH Q8 [facility] Last Admin: 12/27/17 13:28 Dose: 3 ml Albumin Human (Albumin Human 25% (12.5 Gm/50 Ml)) 12.5 gm IV Q12 [facility] Last Admin: 12/27/17 22:53 Dose: 12.5 gm Apixaban (Eliquis) 2.5 mg PO BID [facility] PRN Reason: Protocol Last Admin: 12/27/17 17:59 Dose: 2.5 mg Aspirin (Ecotrin) 81 mg PO DAILY [facility] Last Admin: 12/27/17 11:19 Dose: 81 mg Budesonide (Pulmicort Respules) 0.5 mg IH Q12 [facility] Last Admin: 12/26/17 21:25 Dose: Not Given Calcium Carbonate (Oscal) 1,000 mg PO BID [facility] Last Admin: 12/27/17 17:58 Dose: 1,000 mg Digoxin (Lanoxin Elixir Soln) 0.125 mg PO 1400 [facility] Last Admin: 12/26/17 14:21 Dose: Not Given Diltiazem HCl (Cardizem Cd) 120 mg PO DAILY [facility] Last Admin: 12/27/17 11:20 Dose: 120 mg Ergocalciferol (Drisdol 50,000 Intl Units Cap) 1 cap PO Q7D [facility] Last Admin: 12/25/17 01:02 Dose: 1 cap Furosemide (Lasix) 40 mg IVP Q12 [facility] Last Admin: 12/27/17 21:47 Dose: 40 mg Gabapentin (Neurontin) 100 mg PO DAILY [facility] PRN Reason: Protocol Last Admin: 12/27/17 11:19 Dose: 100 mg Dextrose/Sodium Chloride (Dextrose 5%/0.9% Ns 1000 Ml) 1,000 mls @ 100 mls/hr IV .Q10H [facility] Last Admin: 12/26/17 09:16 Dose: 100 mls/hr Dobutamine HCl/Dextrose (Dobutamine/Dextrose 5% 500mg/250ml) 500 mg in 250 mls @ 16.533 mls/hr IV .Q15H8M PRN; Protocol; 7.5 MCG/KG/MIN PRN Reason: Shortness of Breath Last Admin: 12/27/17 18:01 Dose: 7.5 mcg/kg/min, 16.533 mls/hr Ipratropium [place] (Atrovent) 0.5 mg IH TIDRESP [facility] Last Admin: 12/27/17 13:28 Dose: 0.5 mg Levothyroxine Sodium (Synthroid) 50 mcg PO 0600 [facility] Last Admin: 12/27/17 05:21 Dose: 50 mcg Morphine Sulfate (Morphine) 1 mg IM Q4H PRN PRN Reason: Pain, severe (8-10) Pantoprazole Sodium (Protonix Ec Tab) 40 mg PO ACB PRN PRN Reason: reflux Sodium Bicarbonate (Sodium Bicarbonate Tab) 1,300 mg PO TID [facility] Last Admin: 12/27/17 17:58 Dose: 1,300 mg Sodium Chloride ([place] Nasal [place]) 0 ml NS TID PRN PRN Reason: Nasal congestion Last Admin: 12/25/17 20:06 Dose: 2 sprays Tamsulosin HCl (Flomax) 0.4 mg PO DAILY [facility] Last Admin: 12/27/17 11:19 Dose: 0.4 mg - Labs Labs: 12/26/17 05:48 12/27/17 06:30 PT 20.0 SECONDS (9.4-12.5) H 12/24/17 14:11 INR 1.73 (0.93-1.08) H 12/24/17 14:11 APTT 44.6 Seconds (25.1-36.5) H 12/24/17 14:11 Most Recent Lab Values WBC 11.7 10^3/ul (4.5-11.0) H 12/26/17 05:48 RBC 3.20 10^6/uL (3.5-6.1) L 12/26/17 05:48 Hgb 9.2 g/dL (14.0-18.0) L 12/26/17 05:48 Hct 28.1 % (42.0-52.0) L 12/26/17 05:48 MCV 87.8 fl (80.0-105.0) 12/26/17 05:48 MCH 28.8 pg (25.0-35.0) 12/26/17 05:48 MCHC 32.7 g/dl (31.0-37.0) 12/26/17 05:48 RDW 15.7 % (11.5-14.5) H 12/26/17 05:48 Plt Count 272 10^3/uL (120.0-450.0) 12/26/17 05:48 MPV 9.5 fl (7.0-11.0) 12/26/17 05:48 Gran % 80.3 % (50.0-68.0) H 12/25/17 06:30 Lymph % (Auto) 6.6 % (22.0-35.0) L 12/25/17 06:30 [place] % (Auto) 12.2 % (1.0-6.0) H 12/25/17 06:30 Eos % (Auto) 0.8 % (1.5-5.0) L 12/25/17 06:30 Baso % (Auto) 0.1 % (0.0-3.0) 12/25/17 06:30 Gran # 9.07 (1.4-6.5) H 12/25/17 06:30 Lymph # (Auto) 0.7 (1.2-3.4) L 12/25/17 06:30 [place] # (Auto) 1.4 (0.1-0.6) H 12/25/17 06:30 Eos # (Auto) 0.1 (0.0-0.7) 12/25/17 06:30 Baso # (Auto) 0.01 K/mm3 (0.0-2.0) 12/25/17 06:30 PT 20.0 SECONDS (9.4-12.5) H 12/24/17 14:11 INR 1.73 (0.93-1.08) H 12/24/17 14:11 APTT 44.6 Seconds (25.1-36.5) H 12/24/17 14:11 pCO2 52 mm/Hg (35-45) H 12/26/17 11:10 pO2 106.0 mm/Hg (80-100) H 12/26/17 11:10 HCO3 25.0 mmol/L (21-28) 12/26/17 11:10 ABG pH 7.29 (7.35-7.45) L 12/26/17 11:10 ABG Total CO2 26.6 mmol.L (22-28) 12/26/17 11:10 ABG O2 Saturation 99.7 % (95-98) H 12/26/17 11:10 ABG Base Excess -2.3 mmol/L (-2.0-3.0) L 12/26/17 11:10 ABG Potassium 3.5 mmol/L (3.6-5.2) L 12/26/17 11:10 VBG pH 7.33 (7.32-7.43) 12/24/17 14:11 VBG pCO2 50.0 (40-60) 12/24/17 14:11 VBG HCO3 26.4 mmol/l (21-28) 12/24/17 14:11 VBG Total CO2 27.9 mmol.L (22-28) 12/24/17 14:11 VBG O2 Sat (Calc) 91.0 % (40-65) H 12/24/17 14:11 VBG Base Excess -0.2 mmol/L (0.0-2.0) L 12/24/17 14:11 VBG Potassium 3.9 mmol/L (3.6-5.2) 12/24/17 14:11 Sodium 136.0 mmol/L (132-148) 12/26/17 11:10 Chloride 106.0 mmol/L (98-107) 12/26/17 11:10 Glucose 184 mg/dl (75-110) H 12/26/17 11:10 Lactate 1.8 mmol/L (0.7-2.1) 12/26/17 11:10 FiO2 40.0 % 12/26/17 11:10 Sodium 140 mmol/L (132-148) 12/27/17 06:30 Potassium 3.5 mmol/L (3.6-5.0) L 12/27/17 06:30 Chloride 101 mmol/L (98-107) 12/27/17 06:30 Carbon Dioxide 28 mmol/L (21-33) 12/27/17 06:30 Anion Gap 14 (10-20) 12/27/17 06:30 BUN 56 mg/dL (7-21) H 12/27/17 06:30 Creatinine 2.1 mg/dl (0.8-1.5) H 12/27/17 06:30 Est GFR ( Amer) 38 12/27/17 06:30 Est GFR (Non-Af Amer) 32 12/27/17 06:30 POC Glucose (mg/dL) 80 mg/dL (65-110) 12/27/17 15:56 Random Glucose 91 mg/dL (70-110) 12/27/17 06:30 Hemoglobin A1c 5.0 % (4.2-6.5) 12/25/17 06:30 Calcium 7.3 mg/dL (8.4-10.5) L 12/27/17 06:30 Phosphorus 5.1 mg/dL (2.5-4.5) H 12/25/17 06:30 Magnesium 1.7 mg/dL (1.7-2.2) 12/27/17 12:04 Total Bilirubin 1.0 mg/dL (0.2-1.3) 12/27/17 06:30 AST 31 U/L (17-59) 12/27/17 06:30 ALT 21 U/L (7-56) 12/27/17 06:30 Alkaline Phosphatase 107 U/L (38-126) 12/27/17 06:30 Troponin I 0.04 ng/mL D 12/24/17 14:11 NT-Pro-B Natriuret Pep 46503 pg/mL (0-450) H 12/24/17 14:11 Total Protein 6.3 g/dL (5.8-8.3) 12/27/17 06:30 Albumin 2.3 g/dL (3.0-4.8) L 12/27/17 06:30 Globulin 4.0 gm/dL 12/27/17 06:30 Albumin/Globulin Ratio 0.6 (1.1-1.8) L 12/27/17 06:30 Triglycerides 46 mg/dL (35-160) 12/25/17 06:30 Cholesterol 52 mg/dL (130-200) L 12/25/17 06:30 LDL Cholesterol Direct < 30 mg/dL (0-129) 12/25/17 06:30 HDL Cholesterol 29 mg/dL (29-60) 12/25/17 06:30 Lipase < 10 U/L (23-300) L 12/24/17 14:11 TSH 3rd Generation 22.90 mIU/mL (0.46-4.68) H 12/25/17 06:30 Arterial Blood Potassium 3.5 mmol/L (3.6-5.2) L 12/26/17 11:10 Venous Blood Potassium 3.9 mmol/L (3.6-5.2) 12/24/17 14:11 Digoxin 3.1 ng/mL (0.8-2.0) H* 12/25/17 06:30 Blood Type A POSITIVE 12/24/17 14:11 Antibody Screen Negative 12/24/17 14:11 BBK History Checked Patient has bt 12/24/17 14:11 - Constitutional Appears: Well, No Acute Distress - Head Exam Head Exam: ATRAUMATIC, NORMAL INSPECTION, NORMOCEPHALIC - Eye Exam Eye Exam: Normal appearance - ENT Exam ENT Exam: Normal External Ear Exam - Neck Exam Neck Exam: Normal Inspection - Respiratory Exam Respiratory Exam: NORMAL BREATHING PATTERN - Cardiovascular Exam Cardiovascular Exam: REGULAR RHYTHM. absent: JVD - GI/Abdominal Exam GI & Abdominal Exam: absent: Distended - Rectal Exam Rectal Exam: Deferred - Exam Additional comments: Deferred. - Extremities Exam Extremities Exam: Normal Inspection - Back Exam Back Exam: NORMAL INSPECTION - Neurological Exam Neurological Exam: Alert, Awake, Oriented x3 - Psychiatric Exam Psychiatric exam: Anxious - Skin Skin Exam: Normal Color Assessment and Plan - Assessment and Plan (Free Text) Assessment: Hallucination. Anxiety. Non sustained ventricular tachycardia. CAD. Pancreatic cancer with metastasis. Supratherapeutic digoxin level and psychosis from that. CHF. DM II. History of substance abuse. Plan: Ativan 0.5 mg IV x 1. FSBS, Pulse ox stat. BMP, Mag, Phos,troponin level. EKG stat. Anemia. Leukocytosis. Hypokalemia. Hypomagnesemia. May need CT of head . Repeat Potassium is normal. Magnesium 1.6. EKG: Accelerated junctional rhythm, old inf wall infarct.
[2017-12-28 04:45] LABS: CALCIUM 7.5 mg/dL (8.4-10.5)
[2017-12-28] MEDS ORDERED: Potassium Chloride 20 mEq ER Tab PO ONE (04:54)
[2017-12-28 04:56] LABS: TROPONIN I 0.04 ng/mL
[2017-12-28] MEDS: Levothyroxine 50 MCG TAB PO SCH (05:37)
[2017-12-28] MEDS ORDERED: Magnesium Sulfate 1 gm in D5W 1 GM/100 ML BAG IVPB ONE (05:41)
[2017-12-28 06:34] VITALS: RESP 18; TEMP 97; O2SAT 98
[2017-12-28] MEDS: Ipratropium 0.02% Inhal Soln (0.5 mg/2.5 ml) UD IH SCH (08:00)
[2017-12-28] MEDS: Budesonide 0.5 mg/2 ml Inhal Susp UD IH SCH (08:00)
--- NOTE | 2017-12-28 08:16 | PN ---
DATE: 12/27/2017 SUBJECTIVE: The patient is a 66-year-old male. Patient is seen and examined on the bedside, having Ventimask. Neighbors are sitting on the bedside, celebrating his birthday at the bedside in the hospital. Patient is getting shortness of breath with minimal exertion. Has anasarca. No chest pain. No nausea, vomiting or diarrhea. No hematuria or hematochezia. No fever. No chills. PHYSICAL EXAMINATION: VITAL SIGNS: Temperature 98, heart rate 70, respiratory rate 20, blood pressure 160/83. HEENT: Head: Normocephalic, atraumatic. Eyes: PERRLA. Extraocular muscles are intact. Conjunctivae clear. Nose patent. Mucous membrane moist. NECK: Supple. No carotid bruit. No JVD or thyromegaly. CHEST: Bilaterally symmetrical. HEART: S1 and S2 positive. LUNGS: Clear to auscultation. ABDOMEN: Soft. Bowel sounds present. No organomegaly. EXTREMITIES: No edema. No cyanosis. NEUROLOGIC: Patient is awake, alert. Moving all four extremities, but extremities has trace edema and whole body has anasarca. LABORATORY DATA: We do not have recent labs today, but I reviewed old labs. Blood sugar is 80. MEDICATIONS: Mucomyst, Atrovent, Cardizem, NS, dobutamine, vitamin D, Ecotrin, Eliquis, Flomax, digoxin, Lasix, Neurontin, Protonix, Pulmicort, Synthroid. ASSESSMENT AND PLAN: The patient is a 66-year-old male with multiple medical problem of pancreatic cancer with metastasis, cardiomyopathy, pleural effusion status post multiple times, thoracentesis, respiratory failure requiring noninvasive ventilation, atrial fibrillation, hypoalbuminemia, anasarca, diabetes mellitus, renal failure, pancreatic cancer. Overall prognosis is very poor. Patient is a do not resuscitate. Keep head elevated at 45 degrees. Length of time discussion done with the patient's friends with patient's permission. Continue making him comfortable. He is on dobutamine, Lasix, albumin. Continue pain management. Changing patient position more often. Reviewed Dr. Mukherjee's note. Reviewed Juli Bishop, nurse notes also. Patient has history of acute kidney injury. Patient is not using BiPAP. Continue BiPAP, nebulizer. Deep venous thrombosis prophylaxis with Eliquis. We will follow up. Joy Nix MD
[2017-12-28] MEDS ORDERED: DOBUTamine 500mg/250ml D5W 500 MG/250 ML BAG IV PRN ×2 (09:32→09:47)
[2017-12-28] MEDS: Albumin Human 25% (12.5 gm/50 ml) IV SCH (09:33)
[2017-12-28] MEDS: diltiaZEM 120 mg/24 Hours CD Cap PO SCH (09:35)
--- NOTE | 2017-12-28 09:52 | CP.PCM.PN ---
Subjective - Date & Time of Evaluation Date of Evaluation: 12/28/17 Time of Evaluation: 10:00 - Subjective Subjective: Dyspnea, hypothermia. Objective - Vital Signs/Intake and Output Vital Signs (last 24 hours): Temp Pulse Resp BP Pulse Ox 97 F L 95 H 18 155/77 H 98 12/28/17 06:00 12/28/17 08:25 12/28/17 06:00 12/28/17 06:00 12/28/17 06:00 Intake and Output: 12/28/17 12/28/17 06:59 18:59 Intake Total 120 Output Total 400 Balance -280 - Medications Medications: Current Medications Acetaminophen (Tylenol 325mg Tab) 650 mg PO TID PRN PRN Reason: Pain, moderate (4-7) Last Admin: 12/25/17 20:17 Dose: 650 mg Acetylcysteine (Acetylcysteine 20%) 3 ml INH Q8 [facility] Last Admin: 12/27/17 13:28 Dose: 3 ml Albumin Human (Albumin Human 25% (12.5 Gm/50 Ml)) 12.5 gm IV Q12 [facility] Last Admin: 12/27/17 22:53 Dose: 12.5 gm Apixaban (Eliquis) 2.5 mg PO BID [facility] PRN Reason: Protocol Last Admin: 12/27/17 17:59 Dose: 2.5 mg Aspirin (Ecotrin) 81 mg PO DAILY [facility] Last Admin: 12/27/17 11:19 Dose: 81 mg Budesonide (Pulmicort Respules) 0.5 mg IH Q12 [facility] Last Admin: 12/28/17 08:00 Dose: 0.5 mg Calcium Carbonate (Oscal) 1,000 mg PO BID [facility] Last Admin: 12/27/17 17:58 Dose: 1,000 mg Digoxin (Lanoxin Elixir Soln) 0.125 mg PO 1400 [facility] Last Admin: 12/26/17 14:21 Dose: Not Given Diltiazem HCl (Cardizem Cd) 120 mg PO DAILY [facility] Last Admin: 12/27/17 11:20 Dose: 120 mg Ergocalciferol (Drisdol 50,000 Intl Units Cap) 1 cap PO Q7D [facility] Last Admin: 12/25/17 01:02 Dose: 1 cap Furosemide (Lasix) 40 mg IVP Q12 [facility] Last Admin: 12/27/17 21:47 Dose: 40 mg Gabapentin (Neurontin) 100 mg PO DAILY [facility] PRN Reason: Protocol Last Admin: 12/27/17 11:19 Dose: 100 mg Dextrose/Sodium Chloride (Dextrose 5%/0.9% Ns 1000 Ml) 1,000 mls @ 100 mls/hr IV .Q10H [facility] Last Admin: 12/26/17 09:16 Dose: 100 mls/hr Dobutamine HCl/Dextrose (Dobutamine/Dextrose 5% 500mg/250ml) 500 mg in 250 mls @ 5.511 mls/hr IV .Q24H PRN; Protocol; 2.5 MCG/KG/MIN PRN Reason: Shortness of Breath Stop: 12/29/17 08:00 Ipratropium [place] (Atrovent) 0.5 mg IH TIDRESP [facility] Last Admin: 12/28/17 08:00 Dose: 0.5 mg Levothyroxine Sodium (Synthroid) 50 mcg PO 0600 [facility] Last Admin: 12/28/17 05:37 Dose: Not Given Morphine Sulfate (Morphine) 1 mg IM Q4H PRN PRN Reason: Pain, severe (8-10) Pantoprazole Sodium (Protonix Ec Tab) 40 mg PO ACB PRN PRN Reason: reflux Sodium Bicarbonate (Sodium Bicarbonate Tab) 1,300 mg PO TID [facility] Last Admin: 12/27/17 17:58 Dose: 1,300 mg Sodium Chloride ([place] Nasal [place]) 0 ml NS TID PRN PRN Reason: Nasal congestion Last Admin: 12/25/17 20:06 Dose: 2 sprays Tamsulosin HCl (Flomax) 0.4 mg PO DAILY [facility] Last Admin: 12/27/17 11:19 Dose: 0.4 mg - Labs Labs: 12/26/17 05:48 12/28/17 04:27 PT 20.0 SECONDS (9.4-12.5) H 12/24/17 14:11 INR 1.73 (0.93-1.08) H 12/24/17 14:11 APTT 44.6 Seconds (25.1-36.5) H 12/24/17 14:11 - Constitutional Appears: Cachectic, Chronically Ill - Eye Exam Eye Exam: PERRL, Scleral icterus - ENT Exam ENT Exam: Mucous Membranes Moist - Respiratory Exam Respiratory Exam: Accessory Muscle Use, Decreased Breath Sounds, Rhonchi - Cardiovascular Exam Cardiovascular Exam: Tachycardia, Irregular Rhythm, +S1, +S2 - GI/Abdominal Exam GI & Abdominal Exam: Distended, Soft, Diminished Bowel Sounds - Exam Additional comments: oliguria - Extremities Exam Additional comments: PVD lower extremities - Neurological Exam Neurological Exam: Alert Additional comments: oriented to place and self - Skin Additional comments: generalized anasrca Assessment and Plan - Assessment and Plan (Free Text) Assessment: 66 year old male with history of of DM, HTN, metastatic pancreatic cancer who is admitted with dyspnea, large right pleural effusion, anorexia, cachexia, anasarca,weakness and hypothermia The patient experienced hallucinations during the night. He is lethargic, oriented to place and self. Dyspnea, on BIPAP Patient states he is doing "lousy ". Patient is agreeable to transitioning to hospice care. I spoke with patient's POA(sister-in -law) Madalyn Campuzano via phone. Madalyn was updated of patients condition and prognosis. Madalyn updated of patient's request to be DNR/DNI. Madalyn agreeable to hospice care and intends to come to hospital today. Patient met with [facility] administrative liaison. Patients Madalyn GALVEZ at [facility] Hospice services reviewed. Patient signed consents and is admitted to [facility] services Time spent with patient and family in goals of care and end of life discussion , 50 minutes Plan: Dr Cuong Nix notified and in agreement with plan Hospice evaluation for [facility] services Discharge and admit to [facility] hospice care
[2017-12-28 11:26] VITALS: PULSE 91
--- NOTE | 2017-12-28 11:39 | PN ---
DATE: 12/28/2017 CARDIOLOGY FOLLOWUP SUBJECTIVE: The patient's breathing is unchanged despite increasing dobutamine. PHYSICAL EXAMINATION VITAL SIGNS: Blood pressure is 155/77, the heart rate is in the 90s. NECK: Negative JVD. LUNGS: Decreased breath sounds bilaterally. HEART: Reveals S1 and S2. EXTREMITIES: Without edema. LABORATORY DATA: Hemoglobin is 9.2. BUN and creatinine is 58 over 2.1 with a potassium of 3.8. IMPRESSION: 1. Persistent dizziness. 2. Weakness. 3. End-stage dilated cardiomyopathy. 4. History of pancreatic cancer. 5. Renal insufficiency. 6. Anemia. PLAN: Given these findings, his ionotropic therapy has not helped his breathing at all, we will taper off. His prognosis is poor. Terrence Yoder MD
--- NOTE | 2017-12-28 14:57 | CARD ---
APPROVED REPORT EKG Measurement Heart [id number] <Conclusion> A fibrillation with occasional premature ventricular complexes and fusion complexes Low voltage QRS Inferior-posterior infarct, age undetermined Abnormal ECG
== END 2017-12-28 11:54 | disposition hospice, inpatient (51) | DRG 291 ==
LOC: ED 12:49 → ERH 15:51 → 3RSO 18:43 → 2RSO 12-25 12:19
PROVIDERS: ADMIT Internal Medicine; ATTEND Internal Medicine
PROC: 5A09357 Assistance with Respiratory Ventilation, Less than 24 Consecutive Hours, Continuous Positive Airway Pressure (ICD-10-PCS; principal; 2017-12-26)
DX: I13.0 Hypertensive heart and chronic kidney disease with heart failure and stage 1 through stage 4 chronic kidney disease, or unspecified chronic kidney disease (principal); I50.21 Acute systolic (congestive) heart failure; E43 Unspecified severe protein-calorie malnutrition; J96.90 Respiratory failure, unspecified, unspecified whether with hypoxia or hypercapnia; C25.9 Malignant neoplasm of pancreas, unspecified; I47.2 Ventricular tachycardia; N17.9 Acute kidney failure, unspecified; R64 Cachexia; C79.9 Secondary malignant neoplasm of unspecified site; R62.7 Adult failure to thrive; E11.51 Type 2 diabetes mellitus with diabetic peripheral angiopathy without gangrene; K21.9 Gastro-esophageal reflux disease without esophagitis; E78.00 Pure hypercholesterolemia, unspecified; I25.10 Atherosclerotic heart disease of native coronary artery without angina pectoris; I48.2 Chronic atrial fibrillation; I42.0 Dilated cardiomyopathy; F41.9 Anxiety disorder, unspecified; N18.9 Chronic kidney disease, unspecified; E87.6 Hypokalemia; E83.51 Hypocalcemia; E83.39 Other disorders of phosphorus metabolism; E03.9 Hypothyroidism, unspecified; D64.9 Anemia, unspecified; E11.65 Type 2 diabetes mellitus with hyperglycemia; F28 Other psychotic disorder not due to a substance or known physiological condition; T46.0X5A Adverse effect of cardiac-stimulant glycosides and drugs of similar action, initial encounter; Z66 Do not resuscitate; Z51.5 Encounter for palliative care; E78.5 Hyperlipidemia, unspecified; E11.22 Type 2 diabetes mellitus with diabetic chronic kidney disease; I49.3 Ventricular premature depolarization; I34.0 Nonrheumatic mitral (valve) insufficiency; E11.649 Type 2 diabetes mellitus with hypoglycemia without coma; N40.0 Benign prostatic hyperplasia without lower urinary tract symptoms; Z68.23 Body mass index [BMI] 23.0-23.9, adult; Z87.01 Personal history of pneumonia (recurrent); Z95.5 Presence of coronary angioplasty implant and graft; Z87.891 Personal history of nicotine dependence

== ENCOUNTER 2017-12-28 12:03 | Inpatient (IN) | payer OTHER ==
[2017-12-28] MEDS ORDERED: Morphine 2 mg/ml ISec IVP STA (12:16)
[2017-12-28 12:48] VITALS: RESP 20; BMI 25.1
[2017-12-28] MEDS: Morphine PCA 1 mg/ml (30ml) 30 ML IV PRN (14:14)
[2017-12-28 16:59] VITALS: PULSE 82
[2017-12-29] MEDS: Morphine PCA 1 mg/ml (30ml) 30 ML IV PRN (19:31)
[2017-12-29 22:58] VITALS: BP 78/41
--- NOTE | 2017-12-30 02:46 | CP.PCM.PN ---
Subjective - Date & Time of Evaluation Date of Evaluation: 12/30/17 Time of Evaluation: 02:43 - Subjective Subjective: pt with no pulse no bp, not breathing . pt was hospice at 240am. Objective - Vital Signs/Intake and Output Vital Signs (last 24 hours): Temp Pulse Resp BP Pulse Ox 82 20 78/41 L 12/28/17 15:50 12/28/17 12:38 12/29/17 22:57 Intake and Output: 12/29/17 12/30/17 18:59 06:59 Intake Total 30 Balance 30 - Medications Medications: Current Medications Acetaminophen (Tylenol 650 Mg Supp) 650 mg RC Q4H PRN PRN Reason: Fever >100.4 F Furosemide (Lasix) 40 mg IVP Q12 [facility] Last Admin: 12/29/17 22:57 Dose: Not Given Morphine Sulfate (Morphine [employer] Business [employer] Manager 1 Mg/Ml) 30 mls @ 1 mls/hr IV PRN PRN; Protocol ; 1 MG/HR PRN Reason: DIRECTOR PROCESS ENGINEERING PER MD ORDER Last Admin: 12/29/17 19:31 Dose: 1 mg/hr, 1 mls/hr Lorazepam (Ativan) 0.5 mg IVP Q6H PRN; Protocol PRN Reason: Anxiety Scopolamine (Transderm-Scop) 1 patch TD Q3D [facility] Last Admin: 12/28/17 14:13 Dose: 1 patch Tamsulosin HCl (Flomax) 0.4 mg PO DAILY [facility] Last Admin: 12/29/17 10:07 Dose: 0.4 mg Assessment and Plan - Assessment and Plan (Free Text) Assessment: at 2;40 am . hospice, family informed pmd informed by nurse.
--- NOTE | 2017-12-30 06:50 | HP ---
DATE OF EXAM: The [place] patient is a 66-year-old male. CHIEF COMPLAINT: Pancreatic cancer with metastatic disease. HISTORY OF PRESENT ILLNESS: Mr. Franky Campuzano is a 66-year-old male with past medical history of multiple medical problems, history of pancreatic cancer with metastasis, anemia, pleural effusion, congestive heart failure, diabetes mellitus, gastroesophageal reflux disease, was admitted on the medical floor on 12/24/2017. The patient deteriorating. Comfort care consult called. Juli Bishop talked to the patient. The patient decided to be DNR and DNI. Then, after that, he decided to be hospice. Now, the patient is on the hospice. Discussion done with the patient's [id number] and the patient's neighbors. The patient is under [facility]. The patient is deteriorating, looks like comfortable. He is not able to give review of systems. PAST MEDICAL HISTORY: Congestive heart failure, pneumonia, history of respiratory failure multiple times, dizziness, diabetes mellitus type 2, pancreatic cancer with metastasis, gastroesophageal reflux disease, history of substance abuse long time ago, coronary artery disease, cardiac catheterization. FAMILY HISTORY: Father and mother, noncontributory. HABITS: Former smoker. Alcohol, yes. Substance abuse, yes, but not now. ALLERGIES: THE PATIENT IS ALLERGIC WITH TDAP. HOME MEDICATIONS: Reviewed by me. REVIEW OF SYSTEMS: The patient was seen and examined at the bedside today. [id number] and neighbors are on the bedside. Looking comfortable. No fever. No chills. No nausea, vomiting, or diarrhea. No hematuria or hematochezia. He is not able to actively give review of systems. PHYSICAL EXAMINATION: VITAL SIGNS: Pulse 82, temperature 98.6, respiratory rate 20, the patient was on BiPAP. HEENT: Head is normocephalic and atraumatic. Eyes; PERRLA. Extraocular muscles are intact. Conjunctivae are clear. Nose is patent. Mucous membranes are moist. NECK: Supple. No carotid bruit, JVD, or thyromegaly. CHEST: Bilaterally symmetrical. HEART: S1, S2 positive. LUNGS: Clear to auscultation. ABDOMEN: Soft. Bowel sounds present. No organomegaly. EXTREMITIES: The patient has trace edema. NEUROLOGICAL: Evaluation cannot be done. MEDICATIONS: Ativan, Lasix, morphine, scopolamine patch, Tylenol. LABORATORY DATA: We do not have recent labs today. ASSESSMENT AND PLAN: Mr. Franky Campuzano is a 66-year-old male with multiple medical problems, history of pancreatic cancer with metastasis; history of ascites; pleural effusion and thoracentesis was done; history of persistent dizziness; fatigue; end-stage renal disease, on hemodialysis; history of renal insufficiency; anemia; history of dyspnea; large right pleural effusion; anorexia; cachexia; anasarca; hypothermia. The patient was experiencing hallucinations during night, lethargic, was on BiPAP. According to him, he was lousy. The patient is agreeable to transitioning to hospice care. Juli spoke to the patient's [id number], POA, Yesenia Campuzano via phone. Yesenia was updated on his clinical condition and prognosis. Yesenia updated the patient's request to be DNR and DNI. Yesenia agreeable to hospice care and intends to come to the hospital. Today, actually I saw her in the hospital. The patient meet with [facility]'s liaison. The patient's POA, Yesenia, met to them also. Patient signed consent and is rather admitted to [facility]. We will follow. Joy Nix MD MTDAnderson
== END 2017-12-30 04:54 | DRG 436 ==
LOC: 2RSO 12:03 → 3RNO 14:54
PROVIDERS: ADMIT Internal Medicine; ATTEND Internal Medicine
DX: C25.9 Malignant neoplasm of pancreas, unspecified (principal); R64 Cachexia; R18.8 Other ascites; C79.9 Secondary malignant neoplasm of unspecified site; I42.0 Dilated cardiomyopathy; J90 Pleural effusion, not elsewhere classified; Z51.5 Encounter for palliative care; Z66 Do not resuscitate; N18.9 Chronic kidney disease, unspecified; E11.22 Type 2 diabetes mellitus with diabetic chronic kidney disease; I50.9 Heart failure, unspecified; I25.10 Atherosclerotic heart disease of native coronary artery without angina pectoris; D64.9 Anemia, unspecified; K21.9 Gastro-esophageal reflux disease without esophagitis; Z99.2 Dependence on renal dialysis; Z87.891 Personal history of nicotine dependence